=== PATIENT | female | born 1945 | race Caucasian/White ===

== ENCOUNTER 2022-12-28 20:06 | Emergency (ER) | payer MEDICARE, OTHER, SELFPAY ==
[2022-12-28 20:13] VITALS: PULSE 79; RESP 20; TEMP 36.8; O2SAT 97; BMI 33.6
[2022-12-28 20:20] VITALS: BP 170/100
--- NOTE | 2022-12-28 20:24 | XR_ITS ---
[address] [address] Patient Name: BHAVESH MONTEIRO MRN: [id number] date: 1945 Sex: F Assigned Patient Location: ER Current Patient Location: Accession/Order Number: [id number] Exam Date: 12/28/2022 20:35 Report Date: 12/28/2022 21:14 At the request of: JUAN CARRERA Procedure: XR ankle RT min 3V EXAM: XR knee RT 4V, XR ankle RT min 3V, XR foot RT min 3V HISTORY: Pain after slipping COMPARISON: None. TECHNIQUE: 4 views of the knee, 3 views of the ankle and 3 views of the foot FINDINGS: There is no visualized acute fracture, dislocation, subluxation or osseous lesion. Severe subcutaneous soft tissue edema overlies the medial aspect of the ankle and hindfoot. Age-changes of the knee with poorly evaluated chondral irregularity of the medial femoral condyle. The talocrural articulation is unremarkable. The midfoot and forefoot joint spaces are additionally unremarkable. Age-related prominence of the first metatarsal head medial eminence. Atherosclerosis of the vascular structures. IMPRESSION: Subcutaneous soft tissue edema with no visualized osseous abnormality or joint effusion. 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 Outpatient orthopedic evaluation and contrast MRI is recommended Electronically authenticated by: CARLO MOORE Date: 12/28/2022 21:14
--- NOTE | 2022-12-28 20:24 | XR_ITS ---
[address] [address] Patient Name: BHAVESH MONTEIRO MRN: [id number] date: 1945 Sex: F Assigned Patient Location: ER Current Patient Location: Accession/Order Number: [id number] Exam Date: 12/28/2022 20:35 Report Date: 12/28/2022 21:14 At the request of: JUAN CARRERA Procedure: XR foot RT min 3V EXAM: XR knee RT 4V, XR ankle RT min 3V, XR foot RT min 3V HISTORY: Pain after slipping COMPARISON: None. TECHNIQUE: 4 views of the knee, 3 views of the ankle and 3 views of the foot FINDINGS: There is no visualized acute fracture, dislocation, subluxation or osseous lesion. Severe subcutaneous soft tissue edema overlies the medial aspect of the ankle and hindfoot. Age-changes of the knee with poorly evaluated chondral irregularity of the medial femoral condyle. The talocrural articulation is unremarkable. The midfoot and forefoot joint spaces are additionally unremarkable. Age-related prominence of the first metatarsal head medial eminence. Atherosclerosis of the vascular structures. IMPRESSION: Subcutaneous soft tissue edema with no visualized osseous abnormality or joint effusion. 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 Outpatient orthopedic evaluation and contrast MRI is recommended Electronically authenticated by: CARLO MOORE Date: 12/28/2022 21:14
--- NOTE | 2022-12-28 20:24 | XR_ITS ---
[address] [address] Patient Name: BHAVESH MONTEIRO MRN: [id number] date: 1945 Sex: F Assigned Patient Location: ER Current Patient Location: Accession/Order Number: [id number] Exam Date: 12/28/2022 20:35 Report Date: 12/28/2022 21:14 At the request of: JUAN CARRERA Procedure: XR knee RT 4V EXAM: XR knee RT 4V, XR ankle RT min 3V, XR foot RT min 3V HISTORY: Pain after slipping COMPARISON: None. TECHNIQUE: 4 views of the knee, 3 views of the ankle and 3 views of the foot FINDINGS: There is no visualized acute fracture, dislocation, subluxation or osseous lesion. Severe subcutaneous soft tissue edema overlies the medial aspect of the ankle and hindfoot. Age-changes of the knee with poorly evaluated chondral irregularity of the medial femoral condyle. The talocrural articulation is unremarkable. The midfoot and forefoot joint spaces are additionally unremarkable. Age-related prominence of the first metatarsal head medial eminence. Atherosclerosis of the vascular structures. IMPRESSION: Subcutaneous soft tissue edema with no visualized osseous abnormality or joint effusion. 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 Outpatient orthopedic evaluation and contrast MRI is recommended Electronically authenticated by: CARLO MOORE Date: 12/28/2022 21:14
--- NOTE | 2022-12-28 20:29 | ED.LOWEXI1 ---
Documented by User: Jessi Calero 12/28/22 21:55 HPI - Extremity Injury (Lower) General Chief Complaint: Extremity Injury, Lower Stated Complaint: RIGHT LOWER INJURY Time Seen by Provider: 12/28/22 20:18 Source: patient and family Mode of arrival: walk-in Limitations: no limitations History of Present Illness HPI Narrative: 77 year old female presents to the ED for pain to her right knee, right ankle, and right foot s/p injury today. She slipped on a wet floor and fell. Her right knee was twisted below her. She noticed bruising to the 3rd, 4th, and 5th toes of the right foot which brought her to the ED. She has had a right knee replacement. Denies N/T, fever, chills, weakness. She is ambulatory with a cane; gait favors right leg. Denies injury to other areas. Denies pain to her head, neck, back, hips. Rates her pain 4/[address]: Reports home Related Data Home Medications Medication Instructions Recorded Confirmed No Known Home Medications 12/28/22 12/28/22 Allergies Allergy/AdvReac Type Severity Reaction Status Date / Time No Known Drug Allergies Allergy Verified 12/28/22 20:12 Review of Systems ROS Constitutional Denies: fever, chills or fatigue Cardiovascular Denies: chest pain Respiratory Denies: shortness of breath Gastrointestinal Denies: abdominal pain Musculoskeletal Reports: extremity pain; Denies: back pain or neck pain Integumentary/Breast Reports: changes in skin color; Denies: rash Neurological Denies: headache or dizziness [facility] PFS Social History Smoking status: Never smoker Exam Constitutional Vital Signs - 24 hr 12/28/22 20:13 12/28/22 20:20 Temperature 98.3 F Pulse Rate [Monitor] 79 Respiratory Rate 20 Blood Pressure [Left Arm] 170/100 H Pulse Oximetry 97 Oxygen Delivery Method Room Air Common normals: no apparent distress and oriented x3 Exam limitations: altered mental status General appearance: cooperative; not ill appearing Eye Common normals: conjunctivae normal and no scleral icterus Neck & C-Spine Common normals: supple Chest Chest: symmetrical chest wall rise Respiratory Effort & inspection: symmetric chest movement; no stridor Cardio Common normals: regular rate Peripheral pulses: posterior tibial pulses present and dorsalis pedis pulses present Extremity Right lower extremity: knee joint (Generlized tenderness. No deformity, bruising, wound, swelling.), lower leg (No tenderness, swelling, deformity, wound. Varicose veins noted.), ankle joint Right ankle: inspection (No deformity. ) and palpation (tenderness to medial and lateral areas. Denies tenderness over Achilles. ) and foot and digits Right foot and digits: inspection (Bruising 3rd, 4th, 5th toes of right foot. ), palpation (Tenderness to distal foot and digits. No swelling or deformity. ) and neurovascular exam (Distal sensation intact.) Neuro Common normals: oriented x3 Sensorium/orientation: awake and alert Speech: speech normal Course Vital Signs Vital signs: Vital Signs Temperature 98.3 F 12/28/22 20:13 Pulse Rate 79 12/28/22 20:13 Respiratory Rate 20 12/28/22 20:13 Pulse Oximetry 97 12/28/22 20:13 Oxygen Delivery Method Room Air 12/28/22 20:13 Temperature 98.3 F 12/28/22 20:13 Pulse Rate 79 12/28/22 20:13 Respiratory Rate 20 12/28/22 20:13 Blood Pressure 170/100 H 12/28/22 20:20 Pulse Oximetry 97 12/28/22 20:13 Oxygen Delivery Method Room Air 12/28/22 20:13 MDM - Extremity Injury (Lower) MDM Narrative Medical decision making narrative: X-rays of the right knee, right ankle, and right foot were negative for acute findings. Findings were discussed with the patient and her significant other. She has medication at home for her discomfort. She declined estrella wraps today. Follow up with pcp for a recheck, further evaluation and treatment. Differential Diagnosis Differential diagnosis: Likely ankle sprain and strain, fracture of toe, ankle fracture and other (knee fracture, knee sprain/strain.) Medical Records Attestation: I reviewed the patient's medical records. Imaging Data X-rays of the right knee, ankle, foot.: Radiologist's impression: EXAM: XR knee RT 4V, XR ankle RT min 3V, XR foot RT min 3V HISTORY: Pain after slipping COMPARISON: None. TECHNIQUE: 4 views of the knee, 3 views of the ankle and 3 views of the foot FINDINGS: There is no visualized acute fracture, dislocation, subluxation or osseous lesion. Severe subcutaneous soft tissue edema overlies the medial aspect of the ankle and hindfoot. Age-changes of the knee with poorly evaluated chondral irregularity of the medial femoral condyle. The talocrural articulation is unremarkable. The midfoot and forefoot joint spaces are additionally unremarkable. Age-related prominence of the first metatarsal head medial eminence. Atherosclerosis of the vascular structures. IMPRESSION: Subcutaneous soft tissue edema with no visualized osseous abnormality or joint effusion. 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 Outpatient orthopedic evaluation and contrast MRI is recommended Electronically authenticated by: CARLO MOORE Date: 12/28/2022 21:14 Discharge Plan Discharge Chief Complaint: Extremity Injury, Lower Clinical Impression: Ankle sprain, Fall, Contusion of toe of right foot, Right knee injury Patient Disposition: Home, Self-Care Time of Disposition Decision: 21:22 Condition: Good Mode of Transportation: Private Vehicle Prescriptions / Home Meds: No Action No Known Home Medications Instructions: Ankle Sprain (ED), Knee Sprain (ED), Foot Contusion (ED) Stand Alone Forms: Portal Instructions Referrals: Hafsa Browning MD [Primary Care Provider] - 1 week Discharge Date/Time: 12/28/22 21:37 Documented by User: Rizwana Chen MD 12/29/22 01:16 HPI - Extremity Injury (Lower) General Chief Complaint: Extremity Injury, Lower Stated Complaint: RIGHT LOWER INJURY Time Seen by Provider: 12/28/22 20:18 Related Data Home Medications Medication Instructions Recorded Confirmed No Known Home Medications 12/28/22 12/28/22 Allergies Allergy/AdvReac Type Severity Reaction Status Date / Time No Known Drug Allergies Allergy Verified 12/28/22 20:12 PFSH PFSH Social History Smoking status: Never smoker Exam Constitutional Vital Signs - 24 hr 12/28/22 20:13 12/28/22 20:20 Temperature 98.3 F Pulse Rate [Monitor] 79 Respiratory Rate 20 Blood Pressure [Left Arm] 170/100 H Pulse Oximetry 97 Oxygen Delivery Method Room Air Course Vital Signs Vital signs: Vital Signs Temperature 98.3 F 12/28/22 20:13 Pulse Rate 79 12/28/22 20:13 Respiratory Rate 20 12/28/22 20:13 Pulse Oximetry 97 12/28/22 20:13 Oxygen Delivery Method Room Air 12/28/22 20:13 Temperature 98.3 F 12/28/22 20:13 Pulse Rate 79 12/28/22 20:13 Respiratory Rate 20 12/28/22 20:13 Blood Pressure 170/100 H 12/28/22 20:20 Pulse Oximetry 97 12/28/22 20:13 Oxygen Delivery Method Room Air 12/28/22 20:13 MDM - Extremity Injury (Lower) MDM Narrative Medical decision making narrative: X-rays of the right knee, right ankle, and right foot were negative for acute findings. Findings were discussed with the patient and her significant other. She has medication at home for her discomfort. She declined estrella wraps today. Follow up with pcp for a recheck, further evaluation and treatment. Attending physician attestation I have reviewed the mid-level documentation, agree with the documentation, medical decision making and treatment plan as outlined by the mid-level provider. Discharge Plan Discharge Chief Complaint: Extremity Injury, Lower Clinical Impression: Ankle sprain, Fall, Contusion of toe of right foot, Right knee injury Patient Disposition: Home, Self-Care Time of Disposition Decision: 21:22 Condition: Good Mode of Transportation: Private Vehicle Prescriptions / Home Meds: No Action No Known Home Medications Instructions: Ankle Sprain (ED), Knee Sprain (ED), Foot Contusion (ED) Stand Alone Forms: Portal Instructions Referrals: Hafsa Browning MD [Primary Care Provider] - 1 week Discharge Date/Time: 12/28/22 21:37
== END 2022-12-28 21:37 | disposition home or self-care (01) ==
PROVIDERS: Emergency Provider Emergency Medicine; PCP Family Medicine
DX: S93.401A Sprain of unspecified ligament of right ankle, initial encounter (principal); S90.121A Contusion of right lesser toe(s) without damage to nail, initial encounter; S89.91XA Unspecified injury of right lower leg, initial encounter; W01.0XXA Fall on same level from slipping, tripping and stumbling without subsequent striking against object, initial encounter
CPT/HCPCS: 73564; 73610; 73630; 99283

== ENCOUNTER 2023-05-09 08:00 | Outpatient (OUT) | payer MEDICARE, OTHER, SELFPAY ==
[2023-05-09] MEDS: COVID VAC 23-24(12UP)MODERNA/PF 50 MCG/0.5 ML VIAL IM (15:00)
== END 2023-05-09 08:01 | disposition home or self-care (01) ==
LOC: VACCLI 06-28 09:00
PROVIDERS: PCP Family Medicine; Visit Provider Family Medicine
DX: Z23 Encounter for immunization (principal)
CPT/HCPCS: 90480; 91322

== ENCOUNTER 2023-07-31 12:35 | Outpatient (OUT) | payer MEDICARE, OTHER, SELFPAY ==
--- OUTSIDE RECORDS SUMMARY | 2023-07-31 12:41 | XMS_ITS | CCD ---
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 Name Role Phone HAFSA KNOWLES Primary Care Physician SAMUEL, DR ANTWON Sharma Admitting Unavailparadise BAKER, DR ANTWON Sharma Attending Unavailparadise KNOWLES, DR HAFSA Sharma Primary Care Unavailable SAMUEL, DR ANTWON Sharma Consulting UnavailEMILEE Trimble Consulting Unavailable BETZY HAMILTON Consulting Unavailable SHAHID ORTEGA, DR MALLY Mendiola Admitting Unavailparadise KEY JR, DR MALLY Mendiola Attending Unavailabl e BENSON, DR HAFSA Sharma Primary Care Unavailable SHAHRIAR, DR DARIO Duarte Consulting Unavailable SHAHID ORTEGA, DR MALLY Mendiola Consulting Unavailparadise KNOWLES, DR HAFSA Sharma Admitting Unavailable KNOWLES, DR HAFSA Sharma Attending Unavailable BENSON, DR HAFSA Sharma Primary Care Unavailable SHAHRIAR, DR DARIO Duarte Consulting Unavailable SHAHID ORTEGA, DR MALLY Mendiola Consulting Unavailparadise BAKER, DR ANTWON Sharma Admitting Unavailparadise BAKER, DR ANTWON Sharma Attending Unavailparadise KNOWLES, DR HAFSA Sharma Primary Care Unavailable SAMUEL, DR ANTWON Sharma Consulting Katie Salmon Attending Katie Rihcardson Attending Katie Richardson Attending Hafsa Perkins Unavailable Allergies Allergy Classification Reported Allergen(s) Allergy Type Date of Onset Reaction(s) Facility (5 sources) Codeine; Translations: [codeine] Drug Allergy 12-26-19 16 nausea, Unknown [facility] (1 source) Codeine Drug Allergy [facility] (1 source) Acetaminophen / HYDROcodone Drug Allergy Unknown [facility] Other (1 source) Codeine Drug Allergy Unknown [facility] Other (1 source) patient allergy list reviewed by nurse or physicia Propensity to adverse reactions 04-29-20 Comment:Done [facility] Other (1 source) Allergies Reconciled Propensity to adverse reactions Unknown [facility] Other Medications Current Medications Medication Drug Class(es) Dates Sig (Normalized) Sig (Original) biotin 5 mg oral capsule (4 sources) Start: 10-25-2020 biotin 5000 mcg oral capsule Refills(s) 0 Start Date: 10/25/20 Status: Ordered take 1 capsule by mouth once reddy ly Biotin 5000 5 MG 1 capsule Orally Once a day Active cephalexin 500 mg oral capsule (1 source) Cephalosporin Antibacterial Start: 12-05-2021 take 1 capsule by mouth every twelve hours Keflex 500 mg Cap 500 mg = 1 cap(s), Oral, q12hr, # 6 cap(s), Refills(s) 0, Pharmacy: [id number], 168, cm, 12/05/21 10:16:00 EDT, Height/Length Dosing, 97.5, kg, 12/05/21 10:16:00 EDT, Weight Dosing Start Date: 12/05/21 Status: Ordered ciprofloxacin 500 mg oral tablet (1 source) Quinolone Antimicrobial Start: 07-23-2023 take 1 tablet by mouth every twelve hours Ciprofloxacin HCl 500 MG 1 tablet Orally every 12 hrs for 7 days Jul, Active estradiol 0.1 mg/ml vaginal cream (2 sources) Estrogen Start: 08-22-2022 Estrace 0.1 mg/g Cream See Instructions, 42.5 gm, Refill(s) 6, Apply pea-sized amound around the opening of the urethra 3 times per week for 1 month then 2 times per week after for maintenance., [id number], 168, cm, 08/22/22 11:52:00 EST, Height/Length Dosin... Start Date: 08/22/22 Status: Ordered Mary (3 sources) Histamine-1 Receptor Antagonist Start: 10-25-2020 Mary Oral, Refills(s) 0 Start Date: 10/25/20 Status: Ordered omeprazole 40 mg delayed release oral capsule (1 source) Proton Pump Inhibitor Start: 09-05-2020 take 1 capsule by mouth once daily Omeprazole 40 MG Omeprazole 40MG, 1 (one) Capsule daily # 30, 09/05/2020, Ref. x2. Active Oral daily for 30 Aug, Active sulfamethoxazole 800 mg / trimethoprim 160 mg oral tablet (1 source) Dihydrofolate Reductase Inhibitor Antibacterial, Sulfonamide Antimicrobial Start: 06-25-2023 take 1 tablet by mouth every twelve hours Bactrim DS 800-160 MG 1 tablet Orally Twice a day for 10 day(s) Jun, Active Vitamin D-3 1000 UNIT (1 source) take 1 capsule by mouth once daily Vitamin D-3 1000 UNIT 1 capsule Orally Once a day Active Completed/Discontinued Medications Medication Drug Class(es) Dates Sig (Normalized) Sig (Original) Vitamin D3 5000 intl units oral capsule (3 sources) Start: 10-25-2020 take 1 capsule by mouth once daily at mealtime Vitamin D3 5000 intl units oral capsule 5,000 International_Unit = 1 cap(s), Oral, Daily, with food, # 100 cap(s), Refills(s) 0 Start Date: 10/25/20 Status: Ordered Problems Active Problems Problem Classification Problem Date Documented Da te Episodic/Chronic Abdominal pain (1 source) Left upper quadrant pain; Translations: [Left upper quadrant pain] Episodic Allergic reactions (1 source) Contact dermatitis due to plants; Translations: [Unspecified contact dermatitis due to plants, except food] Episodic Biliary tract disease (10 sources) Biliary calculus; Translations: [Gallstone] 07-09-2019 Episodic Deficiency and other anemia (3 sources) Anemia 10-25-2020 Episodic Genitourinary congenital anomalies (1 source) Multiple congenital cysts of kidney; 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, unspecified] Chronic Genitourinary symptoms and ill-defined conditions (8 sources) Urgent desire to urinate; Translations: [Urgency of urination] Onset: 08-22-2022 Episodic Menopausal disorders (5 sources) Atrophic vaginitis; Translations: [Postmenopausal atrophic vaginitis] Onset: 11-07-2017 Chronic Nutritional deficiencies (1 source) Vitamin D deficiency; Translations: [Vitamin D deficiency, unspecified] Chronic Osteoarthritis (3 sources) Arthritis 10-25-2020 Chronic Other bone disease and musculoskeletal deformities (4 sources) Osteopenia; Translations: [Other specified disorders of bone density and structure, unspecified site] 07-09-2019 Episodic Other circulatory disease (1 source) Elevated blood-pressure reading without diagnosis of hypertension; Translations: [Elevated blood-pressure reading, without diagnosis of hypertension] Episodic Other diseases of kidney and ureters (2 sources) Disorder of kidney and/or ureter; Translations: [Other specified disorders of kidney and ureter] Onset: 12-05-2021 Chronic Other diseases of kidney and ureters (1 source) Renal mass 12-05-2021 Chronic Other diseases of kidney and ureters (4 sources) Other specified disorders of kidney and ureter; Translations: [OTHER SPEC DISORDERS KIDNEY URETER] Onset: 06-13-2022 Chronic Other diseases of kidney and ureters (1 source) Cyst of kidney, acquired; Translations: [CYST OF KIDNEY ACQUIRED] Onset: 06-16-2022 Episodic Other diseases of kidney and ureters (2 sources) Acquired renal cyst without neoplastic change; Translations: [Cyst of kidney, acquired] Onset: 08-22-2022 Episodic Other diseases of kidney and ureters (2 sources) Cyst of kidney 08-22-2022 Episodic Other endocrine disorders (4 sources) Hyperparathyroidis m; Translations: [Hyperparathyroidi sm, unspecified] Onset: 07-24-2016 07-09-2019 Chronic Other endocrine disorders (1 source) Primary hyperparathyroidis m; Translations: [Primary hyperparathyroidis m] Chronic Other non-traumatic joint disorders (2 sources) Arthralgia of the lower leg; Translations: [Pain in joint, lower leg] Onset: 11-07-2017 Episodic Other nutritional; endocrine; and metabolic disorders (1 source) Obesity; Translations: [Obesity, unspecified] Chronic Other nutritional; endocrine; and metabolic disorders (1 source) Hypercalcemia; Translations: [Hypercalcemia] Chronic Other screening for suspected conditions (not mental disorders or infectious disease) (1 source) Elevated liver enzymes level; Translations: [Other specified abnormal findings of blood chemistry] Episodic Other upper respiratory disease (1 source) Allergic rhinitis; Translations: [Allergic rhinitis, unspecified] Onset: 04-13-2016 Chronic Other upper respiratory infections (1 source) Chronic sinusitis; Translations: [Chronic sinusitis, unspecified] Chronic Other upper respiratory infections (2 sources) Acute sinusitis; Translations: [Acute sinusitis, unspecified] Onset: 04-29-2015 Episodic Thyroid disorders (3 sources) Thyroid nodule 07-09-2019 Chronic Urinary tract infections (3 sources) Acute cystitis; Translations: [Acute cystitis without hematuria] Onset: 12-05-2021 Episodic Past or Other Problems Problem Classification Problem Date Documented Da te Episodic/Chronic Other bone disease and musculoskeletal deformities (1 source) Bone density finding; Translations: [Other specified disorders of bone density and structure, unspecified site] Onset: 07-25-2015 Episodic Unclassified (1 source) Abnormal result; Translations: [Other abnormal clinical finding] Onset: 12-11-2016 Results Test Name Value Interpretation Reference Range Facil ity Screenson 02-21-2023 Screens [id number] D:127 Normal [facility] Patient Educationon 02-21-20 23 Patient Education Obstetrics and Gynecology Urinary Tract Infection, Adult A urinary tract infection (UTI) is an infection of any part of the urinary tract. The urinary tract includes: ? The kidneys. ? The ureters. ? The bladder. ? The urethra. These organs make, store, and get rid of pee (urine) in the body. What are the causes? This infection is caused by germs (bacteria) in your genital area. These germs grow and cause swelling (inflammation) of your urinary tract. What increases the risk? The following factors may make you more likely to develop this condition: ? Using a small, thin tube (catheter) to drain pee. ? Not being able to control when you pee or poop (incontinence). ? Being female. If you are female, these things can increase the risk: ? Using these methods to prevent : ? A medicine that kills sperm (spermicide). ? A device that blocks sperm (diaphragm). ? Having low levels of a female hormone (estrogen). ? Being . You are more likely to develop this condition if: ? You have genes that add to your risk. ? You are sexually active. ? You take antibiotic medicines. ? You have trouble peeing because of: ? A prostate that is bigger than normal, if you are male. ? A blockage in the part of your body that drains pee from the bladder. ? A kidney stone. ? A nerve condition that affects your bladder. ? Not getting enough to drink. ? Not peeing often enough. ? You have other conditions, such as: ? Diabetes. ? A weak disease-fighting system (immune system). ? Sickle cell disease. ? Gout. ? Injury of the spine. What are the signs or symptoms? Symptoms of this condition include: ? Needing to pee right away. ? Peeing small amounts often. ? Pain or burning when peeing. ? Blood in the pee. ? Pee that smells bad or not like normal. ? Trouble peeing. ? Pee that is cloudy. ? Fluid coming from the vagina, if you are female. ? Pain in the belly or lower back. Other symptoms include: ? Vomiting. ? Not feeling hungry. ? Feeling mixed up (confused). This may be the first symptom in older adults. ? Being tired and grouchy (irritable). ? A fever. ? Watery poop (diarrhea). How is this treated? ? Taking antibiotic medicine. ? Taking other medicines. ? Drinking enough water. In some cases, you may need to see a specialist. Follow these instructions at home: Medicines ? Take hpum-lnd-hzmqklo and prescription medicines only as told by your doctor. ? If you were prescribed an antibiotic medicine, take it as told by your doctor. Do not stop taking it even if you start to feel better. General instructions ? Make sure you: ? Pee until your bladder is empty. ? Do not hold pee for a long time. ? Empty your bladder after sex. ? Wipe from front to back after peeing or pooping if you are a female. Use each tissue one time when you wipe. ? Drink enough fluid to keep your pee pale yellow. ? Keep all follow-up visits. Contact a doctor if: ? You do not get better after 1?2 days. ? Your symptoms go away and then come back. Get help right away if: ? You have very bad back pain. ? You have very bad pain in your lower belly. ? You have a fever. ? You have chills. ? You feeling like you will vomit or you vomit. Summary ? A urinary tract infection (UTI) is an infection of any part of the urinary tract. ? This condition is caused by germs in your genital area. ? There are many risk factors for a UTI. ? Treatment includes antibiotic medicines. ? Drink enough fluid to keep your pee pale yellow. This information is not intended to replace advice given to you by your health care provider. Make sure you discuss any questions you have with your health care provider. Document Revised: 02/10/2021 Document Reviewed: 02/10/2021 [employer] Patient Education ? 2022 [employer]D. [facility] Urology Office/Clinic Noteon 02-20-2023 Urology Office/Clinic Note Chief Complaint 6M follow up HPI Staff 6m. DX:Urgency of Urination, Renal Cyst, Asymptomatic Bacteriuria, and Vaginal Atrophy. *Estrace cream 2x/wk therapy started at time of last encounter. Denies any infections since last encounter. q3-4hrs during day. Occasional Kegel exercises. Admits to not doing them as often as she should. Denies pain/burning and blood in urine. Denies difficulty urinating. Denies leaking. Mild intermittent urgency, only after sitting in chair for extended period of time then getting up. Has not noticed any difference with Estrace Cream. History of Present Illness Tests reviewed: reviewed UA I have reviewed the previous health record information and history for this patient from . I have reviewed and verified the staff HPI to be accurate for this encounter. There have been no associated fever, chills, flank pain, or blood in the urine. Denies any urinary infections since last encounter. Review of Systems PHQ Score Initial Depression Screen Score: 0 ROS - Provider Constitutional: denies weight loss, denies hot flashes. Eyes: denies eye problems. Gastrointestinal: denies nausea, denies vomiting. Cardiovascular: denies chest pain or angina. Integumentary: no dryness Musculoskeletal: denies musculoskeletal symptoms. ENMT: denies otolaryngeal symptoms. Respiratory: no shortness of breath. Heme/Lymph: denies easy bleeding tendency, denies easy bruising tendency. Psychiatric: no confusion, no anxiety. Genitourinary: See HPI. Physical Exam Vitals & Measurements HR: 68(Peripheral) RR: 16 BP: 130/76 HT: 66 in HT: 168 cm WT: 95.5 kg WT: 210.1 lb BMI: 33.84 General Appearance: alert , no acute distress, well nourished, well developed female. Assessment/Plan Damaso is a 77 yr old female her for a 6 mos f/u. 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 1. Urgency of urination (R39.15: Urgency of urination) BBS 11 Pt states she voids x3-4hrs a day. PT states she does have mild intermittent urgency, only after sitting in chair for extended period of time then getting up. PT states she has not done Kegel's as much as she should. States she does have dropped bladder. Occasional slow stream for yrs. Urgency happens 1/week. PT states she does bladder maneuvers sometimes. Advised pt to do this every time she voids. -Can re-discuss pessary or other tx options in future or if sxs become bothersome. Declines at this time. Pt is currently using Estrace cream. Pt states that she does not see a difference in her symptoms since starting Estrace cream. PT states that she does not have vaginal dryness only with wiping bowels. Pt states she has been applying the best she could, due to her having a prolapsed bladder. Pt denies any burning/pain. Pt denies any infections since last OV. Follow up in 1 yr. All questions/concerns were discussed. Pt to call the office if she encounters any issues prior. Pt acknowledges understanding. -Declined further medicaitons at this time -bladder emptying maneuvers -Reeducated on estrace application technique -timed voids q2-3hrs, void before sensation -Kegels/ PFPT at home daily. educational pamphlet provided prior. Pt does not wish to have formal PFPT with therapist 2. 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 Has remained grossly stable over the past year. States has had this for years. CT AP w/ con done 06/13/22 shows 2.3 x 1.6 x 1.4 cm lesion, only slight increase in size of the left kidney superior pole lesion since 09/21/20, but no significant enhancement of the lesion which favors complex/hemorrhagic cyst. 06/13/22: Crea 0.98. eGFR 55. Bosniak 2 cyst, does not require continual monitoring. No further imaging at this time. 3. Asymptomatic bacteriuria (R82.71: Bacteriuria) Prior +UA 11/2021 treated with keflex x 3 days. No change in urinary sx. UA today shows Trace-intact blood, Positive Nitrate, and trace leuks, pt again denies bothersome sx. No hx of complicated UTIs, fevers or pyelonephritis. PT states that she has not tried OTC cranberry supplements. Advised pt to start taking these. Discussed asx bacteruria and indications for treatment of +UA. After shared decision making, no tx of +UA at this time. Pt to call if develops sx or change in urinary sx. -OTC cranberry supplements -Timed voids and emptying maneuvers 4. 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 Occasional slow stream for yrs. Urgency happens 1/week. Educated pt on emptying maneuvers. Pt is currently using Estrace cream. See #1 I spent 30 minutes today with the patient: reviewing tests in preparation to see and discuss them with the patient, documenting clinical information in the electronic health records, and care coordination. Time was spent performing a medical exam (more content not included)... Normal [facility] Comment on above: Result Comment: Elec tronically Signed By: Katie Almonte MD\.br\Date and Time Signed: 02/20/23 12:03 EDT\.br\Electronically Co-Signed By: Sepideh Perez\.br\Date and Time Co-Signed: 02/20/23 11:49 EDT Ambulatory Visit Summaryon 0 08-22-2022 Ambulatory Visit Summary CAYETANO CRISTIANGUADALUPE Duarte :1945 Visit Date:08/22/2022 Ambulatory Visit Instructions Your Diagnosis Urgency of urination Renal cyst Acute cystitis Tests Performed Urnls Dip Stick Auto w/o Microscopy POC [id number] Your Care Team Attending Physician - Katie Almonte MD Primary Care Physician - HAFSA KNOWLES MD This Is Your Medications List estradiol topical (Estrace 0.1 mg/g Cream) Contact prescribing physician if questions or concerns biotin (biotin 5000 mcg oral capsule) cholecalciferol (Vitamin D3 5000 intl units oral capsule) fexofenadine (Mary) Procedures Performed Cholecystectomy (07/29/2019), Parathyroidectomy (07/15/2016), Colonoscopy (12/26/2011), Biopsy of breast (07/15/2009), JUAN F BSO - Total abdominal hysterectomy and bilateral salpingo-oophorectomy (07/15/1996), 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 Discharge Vitals Heart Rate (Peripheral) 68 Respiratory Rate 16 Blood Pressure 132/78 Height 168 cm Height 66 in Weight 97.5 kg Weight 214.5 lb BMI 34.55 What to do next Scheduled Follow-Up Appointments Saturday 10:45 AM EDT With: Gage JACOB, Katie Arteaga Where: [facility] Patient Educationon 08-22-19 Patient Education Obstetrics and Gynecology Kegel Exercises Kegel exercises can help strengthen your pelvic floor muscles. The pelvic floor is a group of muscles that support your rectum, small intestine, and bladder. In females, pelvic floor muscles also help support the womb (uterus). These muscles help you control the flow of urine and stool. Kegel exercises are painless and simple, and they do not require any equipment. Your provider may suggest Kegel exercises to: ? Improve bladder and bowel control. ? Improve sexual response. ? Improve weak pelvic floor muscles after surgery to remove the uterus (hysterectomy) or (females). ? Improve weak pelvic floor muscles after prostate gland removal or surgery (males). Kegel exercises involve squeezing your pelvic floor muscles, which are the same muscles you squeeze when you try to stop the flow of urine or keep from passing gas. The exercises can be done while sitting, standing, or lying down, but it is best to vary your position. Exercises How to do Kegel exercises: 1. Squeeze your pelvic floor muscles tight. You should feel a tight lift in your rectal area. If you are a female, you should also feel a tightness in your vaginal area. Keep your stomach, buttocks, and legs relaxed. 2. Hold the muscles tight for up to 10 seconds. 3. Breathe normally. 4. Relax your muscles. 5. Repeat as told by your health care provider. Repeat this exercise daily as told by your health care provider. Continue to do this exercise for at least 4?6 weeks, or for as long as told by your health care provider. You may be referred to a physical therapist who can help you learn more about how to do Kegel exercises. Depending on your condition, your health care provider may recommend: ? Varying how long you squeeze your muscles. ? Doing several sets of exercises every day. ? Doing exercises for several weeks. ? Making Kegel exercises a part of your regular exercise routine. This information is not intended to replace advice given to you by your health care provider. Make sure you discuss any questions you have with your health care provider. Document Released: 06/17/2013 Document Revised: 02/18/2019 Document Reviewed: 02/18/2019 [employer] Patient Education ? 2019 iZ3D. [facility] Urology Office/Clinic Noteon 08-22-2022 Urology Office/Clinic Note Chief Complaint 6m CT HPI Staff DLS pt here today to review CT done 06/13/22 due to Renal Mass and acute cystitis. *No Urology Medications. Keflex therapy given at last encounter due to UA results. Pt denies infection since then. Denies symptoms of infection at this time. States she does have dropped bladder. Urgency occasionally when she stands. Denies loss of bladder control. Occasional slow stream for yrs. Very mild intermittent discomfort in Lt flank area. Usually when she is sitting straight up. History of Present Illness Tests reviewed: reviewed UA, CT scan. I have reviewed the previous health record information and history for this patient from Dr. Key. I have reviewed and verified the staff HPI to be accurate for this encounter. There have been no associated fever, chills, flank pain, or blood in the urine. Denies any urinary infections since last encounter. Review of Systems PHQ Score Initial Depression Screen Score: 0 ROS - Provider Constitutional: denies weight loss, denies hot flashes. Eyes: denies eye problems. Gastrointestinal: denies nausea, denies vomiting. Cardiovascular: denies chest pain or angina. Integumentary: no dryness Musculoskeletal: denies musculoskeletal symptoms. ENMT: denies otolaryngeal symptoms. Respiratory: no shortness of breath. Heme/Lymph: denies easy bleeding tendency, denies easy bruising tendency. Psychiatric: no confusion, no anxiety. Genitourinary: See HPI. Physical Exam Vitals & Measurements HR: 68(Peripheral) RR: 16 BP: 132/78 HT: 66 in HT: 168 cm WT: 97.5 kg WT: 214.5 lb BMI: 34.55 General Appearance: alert , no acute distress, well nourished, well developed female. Genitourinary: bladder nonpalpable, no flank pain. 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 1. Urgency of urination (R39.15: Urgency of urination) Urgency occasionally when she stands. Denies loss of bladder control. States she does have dropped bladder. Educated pt on emptying maneuvers. Occasional slow stream for yrs. Urgency happens 1/week. Pt to start Estrace to help with occasional urgency and infection prevention. SEs discussed. Rx sent to [facility]. Can rediscuss pessary or other tx options in future or if sxs become bothersome. Follow up in 6 mos or sooner if needed. Pt understands and agrees with plan. -start Estrace cream, 3x/week for one month then 2x/week after for maintenance -bladder emptying maneuvers -timed voids q2-3hrs, void before sensation -Kegels when having urge, educational pamphlet provided 2. 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 Has remained grossly stable over the past year. States has had this for years. CT AP w/ con done 06/13/22 shows 2.3 x 1.6 x 1.4 cm lesion, only slight increase in size of the left kidney superior pole lesion since 09/21/20, but no significant enhancement of the lesion which favors complex/hemorrhagic cyst. 06/13/22: Crea 0.98. eGFR 55. Pt has been having CT scans q6mos to monitor. Bosniak 2 cyst, does not require continual monitoring. No further imaging at this time. 3. Asymptomatic bacteriuria (R82.71: Bacteriuria) Prior +UA 11/2021 treated with keflex x 3 days. No change in urinary sx. +UA today, pt again denies bothersome sx. No hx of complicated UTIs, fevers or pyelonephritis. Discussed asx bacteruria and indications for treatment of +UA. After shared decision making, no tx of +UA at this time. Pt to call if develops sx or change in urinary sx. 4. 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 Occasional slow stream for yrs. Urgency happens 1/week. Educated pt on emptying maneuvers. -Pt to start Estrace to help with occasional urgency and infection prevention. SEs discussed. Rx sent to [facility]. Can rediscuss pessary or other tx options in future or if sxs become bothersome. Orders: estradiol topical, See Instructions, 42.5 gm, Refill(s) 6, Apply pea-sized amound around the opening of the urethra 3 times per week for 1 month then 2 times per week after for maintenance., [employer], 168, cm, 08/22/22 11:52:00 EST, Height/Length Dosin... Urnls Dip Stick Auto w/o Microscopy POC 10233 Follow-up With When Contact Information Katie Almonte MD, URL, URO Additional Instructions: f/u 6 mos, no labs Patient Education Kegel Exercises I, Es Santana, personally scribed for Dr. Almonte on 08/22/2022 12:52:13. . Documentation recorded by the scribe, Es Santana, accurately reflects the services(s) I performed and decisions made by me. Authenticated by Dr. Almonte on 08/22/2022 16:58:42. Problem List/Past Medical History Ongoing Acute cystitis Calculus of gallbladder Hyperparathyroidism Osteopenia Renal cyst Symptomatic cholelithiasi (more content not included)... Normal [facility] Comment on above: Result Comment: Elec tronically Signed By: Katie Almonte MD\.br\Date and Time Signed: 08/22/22 16:59 EST\.br\Electronically Co-Signed By: Es Santana\.br\Date and Time Co-Signed: 08/22/22 12:52 EST Covid-19 PCR (CVDTB)on 07-15 SARS-CoV-2 (COVID-19) RNA AZUL+probe Ql (Unsp spec) Not detected Normal NOT DETECTED [facility] Comment on above: Result Comment: This test is not yet approved or cleared by the [place] FDA. When there are no FDA-approved or cleared tests available, and other criteria are met, FDA can make tests available under an emergency access mechanism called an Emergency Use Authorization (EUA). The EUA for this test is supported by the Financial Assistance Advisor of Health and Human Service's (HHS's) declaration that circumstances exist to justify the emergency use of in vitro diagnostics for the detection and/or diagnosis of the virus that causes COVID-19. This EUA will remain in effect (meaning this test can be used) for the duration of the COVID-19 declaration justifying emergency of IVDs, unless it is terminated or revoked by FDA (after which the test may no longer be used). When diagnostic testing is negative, the possibility of a false negative should be considered in the context of a patient's recent exposures and the presence of clinical signs and symptoms consistent with SARS-CoV-2. Performed By: #### C VDTBH #### [facility] [address] [place] [address] Dr. Manjula Arzate Lab Reportson 06-17-2022 Lab Reports [id number] D:127 Normal [facility] RAD - CT Reporton 06-17-2022 RAD - CT Report [id number] D:127 Normal [facility] CREATININEon 06-13-2022 Creatinine [Mass/Vol] 0.98 mg/dL Normal 0.55-1.02 [facility] Comment on above: Performed By: #### C JESUS #### [facility] [address] [address] [address] Manjula Arzate EGFR-AF SAMOAN >60 Normal >=60 [facility] Comment on above: Performed By: #### C JESUS #### [facility] [address] [place] [address] Dr. Manjula Arzate EGFR-NON AF SAMOAN 55 mL/min/1.73m2 Critically low >=60 [facility] Comment on above: Performed By: #### C JESUS #### [facility] [address] [address] ABD/PELV W CONon 06-13-[address] ABD/PELV W CON EXAMINATION: CT ABD/PELV W CON HISTORY: Renal mass COMPARISON: CT abdomen pelvis 11/27/2021, 04/25/2021, 09/21/2020 TECHNIQUE: Axial, Coronal, and Sagittal images were obtained without and/or with IV contrast as indicated by examination type. Dose reduction techniques were achieved by using automated exposure control and/or adjustment of mA and/or kV according to patient size and/or use of iterative reconstruction technique. FINDINGS: LUNG BASES: No visible pulmonary or pleural disease. LIVER: No enlargement, atrophy, suspicious density, or significant focal lesion. BILIARY: Cholecystectomy. PANCREAS: No lesion, fluid collection, or abnormal duct dilatation. SPLEEN: Splenectomy. ADRENALS: No mass or enlargement. KIDNEYS: Oval, fairly well-circumscribed 2.3 x 1.6 x 1.4 cm lesion within the medial superior pole of left kidney; 54 HU noncontrast (prior study), 52 HU portal venous phase, 43 HU delayed phase Unremarkable right kidney and bilateral ureters. BOWEL/MESENTERY: Mild cigarettes wall thickening of mid and distal sigmoid colon and rectum without obstruction or appreciable surrounding inflammatory changes. AORTA/VASCULAR: No aneurysm or dissection. RETROPERITONEUM: No mass or adenopathy. LYMPH NODES: No adenopathy. URINARY BLADDER: No visible focal wall thickening, lesion, or calculus. PELVIC ORGANS: No visible mass. Pelvic organs appropriate for patient age. ABDOMINAL WALL: No mass or hernia. BONES: No bony lesion or fracture. OTHER: Negative. IMPRESSION: 1. Only slight increase in size of the right kidney superior pole lesion since 09/21/2020, but no significant enhancement of the lesion which favors complex/hemorrhagic cyst. Consider follow-up imaging in one year. 2. Mild significant wall thickening of distal colon which is also empty; this may be due to lack of distention or mild colitis. Electronically authenticated by: DARIO BESS Date: 2022-06-13 17:40 Normal [facility] CT ABD/PELVIS WO CONon 11-27 CT ABD/PELVIS WO CON EXAMINATION: CT ABD/PELVIS WO CON HISTORY: Renal mass follow-up COMPARISON: CT abdomen pelvis 04/25/2021, 09/21/2020 TECHNIQUE: Axial, Coronal, and Sagittal images were created without IV contrast. Dose reduction techniques were achieved by using automated exposure control and/or adjustment of mA and/or kV according to patient size and/or use of iterative reconstruction technique. FINDINGS: LUNG BASES: No visible pulmonary or pleural disease. LIVER: No enlargement, atrophy, abnormal density, or significant focal lesion. BILIARY: Cholecystectomy. PANCREAS: No lesion, fluid collection, ductal dilatation. SPLEEN: Splenectomy. ADRENALS: No mass or enlargement. KIDNEYS: 18 mm rounded slightly hyperdense lesion within medial mid body of left kidney. BOWEL/MESENTERY: No visible mass, obstruction, or bowel wall thickening. AORTA/VASCULAR: No aneurysm or dissection. RETROPERITONEUM: No mass or adenopathy. LYMPH NODES: No adenopathy. URINARY BLADDER: No visible focal wall thickening, lesion, or calculus. PELVIC ORGANS: No visible mass. Pelvic organs appropriate for patient age. ABDOMINAL WALL: No mass or significant hernia. BONES: No bony lesion or fracture. OTHER: Negative. IMPRESSION: 1. Grossly stable 18 mm left renal mass versus complex cyst. Evaluation of today's study is limited by lack of IV contrast. This has remained grossly stable over past year. Consider follow-up CT abdomen with IV contrast in 6 months and 12 months to document stability over a two-year period. Electronically authenticated by: DARIO BESS Date: 2021-11-27 10:41 Normal [facility] Vital Signs Date Time Vital Sign Value Performing Clinician Murali juarez 02-20-2023 10:53-0400 Blood Pressure Location Katie Almonte [facility] 02-20-2023 10:53-0400 Diastolic blood pressure 76 mm[Hg] Katie Almonte [facility] 02-20-2023 10:53-0400 Heart rate 68 /min Katie Almonte [facility] 02-20-2023 10:53-0400 Respiratory rate 16 /min Katie Lue [facility] 02-20-2023 10:53-0400 Systolic blood pressure 130 mm[Hg] Katie Lue [facility] 08-22-2022 11:50-0500 Blood Pressure Location Katie Lue [facility] 08-22-2022 11:50-0500 Diastolic blood pressure 78 mm[Hg] Katie Lue [facility] 08-22-2022 11:50-0500 Heart rate 68 /min Katie Lue [facility] 08-22-2022 11:50-0500 Respiratory rate 16 /min Katie Lue [facility] 08-22-2022 11:50-0500 Systolic blood pressure 132 mm[Hg] Katie Lue [facility] 12-05-2021 10:33-0400 Diastolic blood pressure 81 mm[Hg] Mally Key Jr. [facility] 12-05-2021 10:33-0400 Mean blood pressure 101 mm[Hg] Mally Key Jr. [facility] 12-05-2021 10:33-0400 Systolic blood pressure 142 mm[Hg] Mally Key Jr. [facility] 12-05-2021 10:12-0400 Blood Pressure Location Mally Key Jr. [facility] 12-05-2021 10:12-0400 Diastolic blood pressure 97 mm[Hg] Mally Key Jr. [facility] 12-05-2021 10:12-0400 Heart rate 87 /min Mally Key Jr. [facility] 12-05-2021 10:12-0400 Respiratory rate 16 /min Mally Key Jr. [facility] 12-05-2021 10:12-0400 Systolic blood pressure 163 mm[Hg] Mally Key Jr. [facility] Encounters Encounter Date Encounter Type Care Provider Facility Start: 02-26-2024 ambulatory Katie Almonte Facility:[facility] Start: 07-30-2023 End: 07-30-2023 ambulatory Hafsa Knowles Other [facility] Other Start: 07-30-2023 Telephone encounter Hafsa Knowles [facility] Start: 02-20-2023 End: 02-21-2023 ambulatory Katie Almonte Facility:[facility] Start: 02-20-2023 End: 02-20-2023 Patient encounter procedure Katie Almonte [facility] Start: 08-22-2022 End: 08-23-2022 ambulatory Katie Josée Facility:[facility] Start: 08-22-2022 End: 08-22-2022 Patient encounter procedure Katie Almonte [facility] Start: 08-01-2022 End: 08-01-[address] ANTWON BAKER Facility:[facility] Start: 07-30-2022 End: 07-31-[address] ANTWON BAKER Facility:[facility] Start: 07-12-2022 Adult health examination Hafsa Knowles Other [facility] Other Start: 06-13-2022 End: 06-14-[address] HAFSA KNOWLES Facility:[facility] Start: 12-05-2021 End: 12-05-2021 Patient encounter procedure Mally Key Jr. [facility] Start: 11-27-2021 End: 11-28-[address] MALLY KEY JR Facility:[facility] Procedures Date Procedure Procedure Detail Performing Clinician Start: 07-29-2019 Cholecystectomy Mally Key Jr. Start: 07-15-2016 Parathyroidectomy Gregg Key Jr. Start: 12-26-2015 General examination of patient Hafsa Knowles Other Start: 04-29-2015 Laboratory test resu lt abnormal Hafsa Knowles Other Start: 04-29-2015 Screening mammography Mervin Knowles Other Start: 12-26-2011 Colonoscopy Mally gilbert Jr. Start: 07-15-2009 Biopsy of breast Mally Key Jr. Start: 07-15-1996 Total abdominal hyst erectomy with bilateral salpingo-oophorectomy Mally Key Jr. Start: 07-15-1989 Splenectomy Mally gilbert Jr. Bilateral cataracts (disorder) Mally Key Jr. Ligation of fallopian tube D prashanth Key . Screening for malign ant neoplasm of breast Hafsa Knowles Other Immunizations Immunization Date Immunization Notes Care Provider Zaid randolph 04-10-2022 SARS-CoV-2 (COVID-19 ) [id number] Katie Lue [facility] 04-11-2021 SARS-CoV-2 (COVID-19 ) mRNA BNT-162b2 vax Katie Lue [facility] 02-15-2021 zoster vaccine recombinant Katie Lue [facility] 11-30-2020 zoster vaccine recombinant Katie Lue [facility] 08-30-2020 SARS-CoV-2 (COVID-19 ) mRNA BNT-162b2 vax Katie Lue [facility] Comment on above: Result Comment: 2022: [id number] 08-09-2020 SARS-CoV-2 (COVID-19 ) mRNA BNT-162b2 vax Katie Lue [facility] Comment on above: Result Comment: 2022: [id number] 05-16-2020 influenza virus vaccine, split virus (incl. purified surface antigen) Hafsa Knowles Other [facility] Other 04-26-2020 influenza virus vaccine, unspecified formulation Katie Lue [facility] 12-16-2018 pneumococcal polysaccharide vaccine, 23 valent Hafsa Knowles Other [facility] Other 11-07-2017 pneumococcal conjuga te vaccine, 13 valent Mally Key Jr. [facility] 11-07-2017 pneumococcal Conjuga te, unspecified formulation; Translations: [Need for prophylactic vaccination against Streptococcus pneumoniae (pneumococcus)] Hafsa Knowles Other [facility] Other 10-13-2017 pneumococcal polysaccharide vaccine, 23 valent Katie Almonte [facility] 04-14-2017 influenza virus vaccine, unspecified formulation Katie Almonte [facility] Payers Date Payer Category Payer Medicare [id number] 1957 Unknown [id number] 1945 Unknown [id number] 2.16.84 [id number] 1945 Unknown [id number] 2.16.84 [id number] 1945 Unknown [id number] 2.16.84 [id number] 1945 Unknown [id number] 2.16.84 [id number] 1945 Unknown [id number] 2.16.8 [id number] 1945 Unknown [id number] 2.16.8 [id number] 1945 Unknown [id number] 2.16.8 [id number] Social History Date Type Detail Facility Start: 12-05-2021 End: 02-20-2023 Tobacco smoking status Never smoked tobacco (finding) [facility] Sex Assigned At Female [facility] Tobacco smoking status Never [facility] Functional Status Date Assessment Result Facility 02-20-2023 Functional Status N/A [facility] 08-22-2022 Functional Status N/A [facility] Evaluation note 07-30-2023 Note Date & Type Note Facility 07-30-2023 Evaluation note Encounter Date Diagnosis Assessment Notes Jul, Acute non-recurrent maxillary sinusitis (ICD-10 - J01.00) [facility] Other Hospital Discharge instructions 02-20-2023 Note Date & Type Note Facility 02-20-2023 Hospital Discharg e instructions Patient Education 02/20/2023 09:58:29 Urinary Tract Infection, Adult, [id number] Urinary Tract Infection, Adult A urinary tract infection (UTI) is an infection of any part of the urinary tract. The urinary tract includes: The kidneys. The ureters. The bladder. The urethra. These organs make, store, and get rid of pee (urine) in the body. What are the causes? This infection is caused by germs (bacteria) in your genital area. These germs grow and cause swelling (inflammation) of your urinary tract. What increases the risk? The following factors may make you more likely to develop this condition: Using a small, thin tube (catheter) to drain pee. Not being able to control when you pee or poop (incontinence). Being female. If you are female, these things can increase the risk: ?Using these methods to prevent : ?A medicine that kills sperm (spermicide). ?A device that blocks sperm (diaphragm). ?Having low levels of a female hormone (estrogen). ?Being . You are more likely to develop this condition if: You have genes that add to your risk. You are sexually active. You take antibiotic medicines. You have trouble peeing because of: ?A prostate that is bigger than normal, if you are male. ?A blockage in the part of your body that drains pee from the bladder. ?A kidney stone. ?A nerve condition that affects your bladder. ?Not getting enough to drink. ?Not peeing often enough. You have other conditions, such as: ?Diabetes. ?A weak disease-fighting system (immune system). ?Sickle cell disease. ?Gout. ?Injury of the spine. What are the signs or symptoms? Symptoms of this condition include: Needing to pee right away. Peeing small amounts often. Pain or burning when peeing. Blood in the pee. Pee that smells bad or not like normal. Trouble peeing. Pee that is cloudy. Fluid coming from the vagina, if you are female. Pain in the belly or lower back. Other symptoms include: Vomiting. Not feeling hungry. Feeling mixed up (confused). This may be the first symptom in older adults. Being tired and grouchy (irritable). A fever. Watery poop (diarrhea). How is this treated? Taking antibiotic medicine. Taking other medicines. Drinking enough water. In some cases, you may need to see a specialist. Follow these instructions at home: Medicines Take narr-aqj-acogtzx and prescription medicines only as told by your doctor. If you were prescribed an antibiotic medicine, take it as told by your doctor. Do not stop taking it even if you start to feel better. General instructions Make sure you: ?Pee until your bladder is empty. ?Do not hold pee for a long time. ?Empty your bladder after sex. ?Wipe from front to back after peeing or pooping if you are a female. Use each tissue one time when you wipe. Drink enough fluid to keep your pee pale yellow. Keep all follow-up visits. Contact a doctor if: You do not get better after 1 2 days. Your symptoms go away and then come back. Get help right away if: You have very bad back pain. You have very bad pain in your lower belly. You have a fever. You have chills. You feeling like you will vomit or you vomit. Summary A urinary tract infection (UTI) is an infection of any part of the urinary tract. This condition is caused by germs in your genital area. There are many risk factors for a UTI. Treatment includes antibiotic medicines. Drink enough fluid to keep your pee pale yellow. This information is not intended to replace advice given to you by your health care provider. Make sure you discuss any questions you have with your health care provider. Document Revised: 02/10/2021 Document Reviewed: 02/10/2021 [employer] Patient Education 2022 [email or web address] Follow Up Care 08/22/2022 12:56:32 With:Gage JACOB, Katie Arteaga, URL, URO Address: When:Within 1 Year(s) [facility] Hospital Discharge instructions 08-22-2022 Note Date & Type Note Facility 08-22-2022 Hospital Discharg e instructions Patient Education 08/22/2022 12:51:50 Kegel Exercises Kegel Exercises Kegel exercises can help strengthen your pelvic floor muscles. The pelvic floor is a group of muscles that support your rectum, small intestine, and bladder. In females, pelvic floor muscles also help support the womb (uterus). These muscles help you control the flow of urine and stool. Kegel exercises are painless and simple, and they do not require any equipment. Your provider may suggest Kegel exercises to: Improve bladder and bowel control. Improve sexual response. Improve weak pelvic floor muscles after surgery to remove the uterus (hysterectomy) or (females). Improve weak pelvic floor muscles after prostate gland removal or surgery (males). Kegel exercises involve squeezing your pelvic floor muscles, which are the same muscles you squeeze when you try to stop the flow of urine or keep from passing gas. The exercises can be done while sitting, standing, or lying down, but it is best to vary your position. Exercises How to do Kegel exercises: 1.Squeeze your pelvic floor muscles tight. You should feel a tight lift in your rectal area. If you are a female, you should also feel a tightness in your vaginal area. Keep your stomach, buttocks, and legs relaxed. 2.Hold the muscles tight for up to 10 seconds. 3.Breathe normally. 4.Relax your muscles. 5.Repeat as told by your health care provider. Repeat this exercise daily as told by your health care provider. Continue to do this exercise for at least 4 6 weeks, or for as long as told by your health care provider. You may be referred to a physical therapist who can help you learn more about how to do Kegel exercises. Depending on your condition, your health care provider may recommend: Varying how long you squeeze your muscles. Doing several sets of exercises every day. Doing exercises for several weeks. Making Kegel exercises a part of your regular exercise routine. This information is not intended to replace advice given to you by your health care provider. Make sure you discuss any questions you have with your health care provider. Document Released: 06/17/2013 Document Revised: 02/18/2019 Document Reviewed: 02/18/2019 [employer] Patient Education 2020 [employer] Follow Up Care 06/13/2022 11:42:12 With:Gage JACOB, KEKE Carrera, URO Address: When: Unknown [facility] Hospital Discharge instructions 12-05-2021 Note Date & Type Note Facility 12-05-2021 Hospital Discharg e instructions Patient Education 12/05/2021 10:57:48 Renal Mass Renal Mass A renal mass is a growth in the kidney. A renal mass may be found while performing an MRI, CT scan, or ultrasound for other problems of the abdomen. Certain types of cancers, infections, or injuries can cause a renal mass. A renal mass that is cancerous (malignant) may grow or spread quickly. Others are harmless (benign). What are common types of renal masses? Renal masses include: Tumors. These may be cancerous (malignant) or noncancerous (benign). ?The most common type of kidney cancer is renal cell carcinoma. ?The most common benign tumors of the kidney include renal adenomas, oncocytomas, and angiomyolipoma (AML). Cysts. These are fluid-filled sacs that form on or in the kidney. ?It is not always known what causes a cyst to develop in or on the kidney. ?Most kidney cysts do not cause symptoms and do not need to be treated. What type of testing might I need? Your health care provider may recommend that you have tests to diagnose the cause of your renal mass. The following tests may be done if a renal mass is found: Physical exam. Blood tests. Urine tests. Imaging tests, such as ultrasound, CT scan, or MRI. Biopsy. This is a small sample that is removed from the renal mass and tested in a lab. The exact tests and how often they are done will depend on: The size and appearance of the renal mass. Risk factors or medical conditions that increase your risk for problems. Any symptoms associated with the renal mass, or concerns that you have about it. Tests and physical exams may be done once, or they may be done regularly for a period of time. Tests and exams that are done regularly will help monitor whether the mass is growing and beginning to cause problems. What are common treatments for renal masses? Treatment is not always needed for this condition. Your health care provider may recommend careful monitoring (watchful waiting) and regular tests and exams. Treatment will depend on the cause of the mass. Follow these instructions at home: What you need to do at home will depend on the cause of the mass. Follow the instructions that your health care provider gives to you. In general: Take zchz-kkp-jzdlsrd and prescription medicines only as told by your health care provider. If you are prescribed an antibiotic medicine, take it as told by your health care provider. Do not stop taking the antibiotic even if you start to feel better. Follow any restrictions that are given to you by your health care provider. Keep all follow-up visits as told by your health care provider. This is important. ?You may need to see your health care provider once or twice a year to have CT scans and ultrasounds done. These tests will show if your renal mass has changed or grown bigger. Contact a health care provider if you: Have pain in the side or back (flank pain). Have a fever. Feel full soon after eating. Have pain or swelling in the abdomen. Lose weight. Get help right away if: Your pain gets worse. There is blood in your urine. You cannot urinate. You have chest pain. You have trouble breathing. Summary A renal mass is a growth in the kidney. It may be cancerous (malignant) and grow or spread quickly, or it may be harmless (benign). Renal masses may be found while performing an MRI, CT scan, or ultrasound for other problems of the abdomen. Your health care provider may recommend that you have tests to diagnose the cause of your renal mass. This may include a physical exam, blood tests, urine tests, imaging, or a biopsy. Treatment is not always needed for this condition. Careful monitoring (watchful waiting) may be recommended. This information is not intended to replace advice given to you by your health care provider. Make sure you discuss any questions you have with your health care provider. Document Released: 01/26/2015 Document Revised: 08/07/2018 Document Reviewed: 08/07/2018 [employer] Patient Education 2020 [email or web address]. Follow Up Care 06/07/2021 13:20:37 With:Shahid Ontiveros MD, Mally Mendiola [facility] Address: [facility] [address], [place] [address]- When: Unknown [facility] Evaluation + Plan note Note Date & Type Note Facility Evaluation + Plan note No data available for this section [facility] Evaluation + Plan note Note Date & Type Note Facility Evaluation + Plan note Future Appointments Appointment Date:02/20/2023 10:45:00 AM Scheduled Provider:Gage JACOB, Katie Arteaga Location:[facility] Appointment Type:URO Office Visit [facility] Evaluation + Plan note Note Date & Type Note Facility Evaluation + Plan note Future Appointments Appointment Date:02/26/2024 10:45:00 AM Scheduled Provider:Katie Almonte MD Location:[facility] Appointment Type:URO Office Visit [facility] History general Narrative - Reported Note Date & Type Note Facility History general Narrative - Reported Type Medical History OSTEOPENIA Medical History HYPERCALCEMIA Medical History hyperparathyroidism, primary Surgical History SPLEEN REMOVED 1989 Surgical History ORAL SURGERY Surgical History TUBILIGATION Surgical History TOTAL HYSTRECTOMY Surgical History OOPHRECTOMY Surgical History RT KNEE ARTHOSCOPIC Surgical History TWO DENTAL IMPLANTS Surgical History parathyroidectomy Surgical History cholecystectomy Surgical History cataracts, bilaterally Hospitalization History SEE ABOVE SURGERY Hospitalization History CHILD X'S 2 Wattage Other Progress note Note Date & Type Note Facility Progress note No data available for this section [facility] Summary Purpose Family History No Family History Records FoundNo Family History Records Found Advance Directives No Advanced Directives Records FoundNo Advanced Directives Records Found Additional Source Comments INFORMATION SOURCE (unrecogn ized section and content) DATE CREATED AUTHOR 08/02/2022 [facility] [place] [facility] DATE CREATED AUTHOR AUTHOR'S ORGANIZ ATION 02/22/2023 [facility] Patient Care team informatio n (unrecognized section and content) Personnel Name: HAFSA KNOWLES MD Address: Address: [address] [place] [address] Personnel Name: HAFSA KNOWLES MD Address: Address: [address] [place] [address] REASON FOR VISIT (unrecogniz ed section and content) message FOR RECORDS PERTAINING TO PATIENTS WHO ARE OR HAVE BEEN ENROLLED IN A CHEMICAL DEPENDENCY/SUBSTANCEABUSE PROGRAM, SOME INFORMATION MAY BE OMITTED. This clinical summary was aggregated from multiple sources. Caution should be exercised in using it in the provision of clinical care. This summary normalizes information from multiple sources, and as a consequence, information in this document may materially change the coding, format and clinical context of patient data. In addition, data may be omitted in some cases. CLINICAL DECISIONS SHOULD BE BASED ON THE PRIMARY CLINICAL RECORDS. [facility] [employer] [facility]. provides no warranty or guarantee of the accuracy or completeness of information in this document.
--- NOTE | 2023-07-31 12:44 | XR_ITS ---
The [address] [address] Patient Name: BHAVESH MONTEIRO MRN: [id number] date: 1945 Sex: F Assigned Patient Location: RAD Current Patient Location: RAD Accession/Order Number: [id number] Exam Date: 07/31/2023 12:55 Report Date: 07/31/2023 13:23 At the request of: HARLAN KNOWLES Procedure: XR sinus min 3V EXAMINATION: XR sinus min 3V HISTORY: Acute Non Recurrent Maxillary Sinusitis J01.00 COMPARISON: No relevant comparison available. FINDINGS: MAXILLARY: No mucosal thickening or fluid level. ETHMOID: No mucosal thickening or fluid level. FRONTAL: No mucosal thickening or fluid level. SPHENOID: No mucosal thickening or fluid level. OTHER: Negative. XR/XR sinus min 3V IMPRESSION: Clear paranasal sinuses Electronically authenticated by: CARLO RICHARDSON Date: 07/31/2023 13:23
== END 2023-07-31 12:36 | disposition home or self-care (01) ==
LOC: RAD 12:37
PROVIDERS: PCP Family Medicine; Visit Provider Family Medicine
DX: J01.00 Acute maxillary sinusitis, unspecified (principal)
CPT/HCPCS: 70220

== ENCOUNTER 2023-09-23 14:01 | Outpatient (OUT) | payer MEDICARE, OTHER, SELFPAY ==
--- NOTE | 2023-09-23 | XR_ITS ---
The [address] [address] Patient Name: BHAVESH MONTEIRO MRN: [id number] date: 1945 Sex: F Assigned Patient Location: Current Patient Location: Accession/Order Number: [id number] Exam Date: 09/23/2023 14:30 Report Date: 09/24/2023 09:34 At the request of: FEMI MAGUIRE Procedure: XR knee RT 4V PROCEDURE: XR knee RT 4V COMPARISON: HISTORY: RIGHT KNEE PAIN FINDINGS: BONES:No acute fracture or dislocation. Moderate tricompartmental osteoarthropathy with joint space narrowing marginal osteophyte formation most significant in the lateral compartment SOFT TISSUES:Likely varicosities. Vascular calcifications EFFUSION:None visible. OTHER: Negative. XR/XR knee RT 4V IMPRESSION: Moderate tricompartmental osteoarthritis Electronically authenticated by: CARLO RICHARDSON Date: 09/24/2023 09:34
== END 2023-09-23 14:02 | disposition home or self-care (01) ==
LOC: EC 14:01
PROVIDERS: PCP Family Medicine; Visit Provider Student in an Organized Health Care Education/Training Program
DX: M25.561 Pain in right knee (principal)
CPT/HCPCS: 73564

== ENCOUNTER 2024-02-12 13:22 | Outpatient (OUT) | payer MEDICARE, OTHER, SELFPAY ==
--- NOTE | 2024-02-12 13:26 | MM_ITS ---
Patient Name: BHAVESH MONTEIRO MR#: [id number] : 1945 Exam Date: 02/12/2024 Ordering Doctor: DR Hafsa Browning M.D. RADIOLOGY REPORT PROCEDURE: MM TOMOSYNTHESIS SCREENING BI COMPARISON: MG MAMM HAYDEE SCRN W CAD DIG, 05/23/2015. MG MAMM SCREEN HAYDEE W CAD, 11/01/2016. INDICATIONS: Screening Calculator Name NCI Breast Cancer Risk Assessment Tool 5 Year Breast Cancer Risk Not Reported. Lifetime Breast Cancer Risk Not Reported. Personal Breast Cancer No Personal Ovarian Cancer No Treatments None Family Cancers None LOCATION: [facility] BREAST COMPOSITION: There are scattered areas of fibroglandular density. FINDINGS: DIAGNOSTIC CATEGORY 2--BENIGN FINDING. NO CHANGE FROM COMPARISON. Scattered benign-appearing calcifications are present. Scattered benign-appearing lymph nodes are present. RIGHT BREAST: No significant suspicious finding. Micro clip marker upper outer quadrant, mid breast, stable. LEFT BREAST: No significant suspicious finding. RECOMMENDATIONS: ROUTINE MAMMOGRAM AND CLINICAL EVALUATION IN 12 MONTHS. PLEASE NOTE: A NORMAL MAMMOGRAM DOES NOT EXCLUDE THE POSSIBILITY OF BREAST CANCER. A CLINICALLY SUSPICIOUS PALPABLE LUMP SHOULD BE BIOPSIED. Dictated by: Quenitn Hernandez MD on 02/12/2024 at 15:05 Approved by: Quentin Hernandez MD on 02/12/2024 at 15:06
--- OUTSIDE RECORDS SUMMARY | 2024-02-12 13:37 | XMS_ITS | CCD ---
Author Organization [facility] [place] Inform ion [facility] Care Team Providers Care Music Box Mechanic Name Role Phone HAFSA KNOWLES Primary Care Physician [phone] SAMUEL, DR ANTWON Sharma Admitting Unavailparadise BAKER, DR ANTWON Sharma Attending Unavailparadise e BENSON, DR HAFSA Sharma Primary Care Unavailable SAMUEL, DR ANTWON Sharma Consulting Unavailparadise e EMILEE VARMA Consulting Unavailable FILUTZBETZY Sharma Consulting Unavailable SHAHID ORTEGA, DR MALLY Mendiola Admitting Unavailparadise KEY JR, DR MALLY Mendiola Attending Unavailparadise e BENSON, DR HAFSA Sharma Primary Care Unavailable SHAHRIAR, DR DARIO Duarte Consulting Unavailable SHAHID ORTEGA, DR MALLY Mendiola Consulting Unavailabl e BENSON, DR HAFSA Sharma Admitting Unavailable KNOWLES, DR HAFSA Sharma Attending Unavailable KNOWLES, DR HAFSA Sharma Primary Care Unavailable SHAHRIAR, DR DARIO Duarte Consulting Unavailable SHAHID ORTEGA, DR MALLY Mendiola Consulting Unavailparaidse e SAMUEL, DR ANTWON Sharma Admitting Unavailabl e SAMUEL, DR ANTWON Sharma Attending Unavailparadise KNOWLES, DR HAFSA Sharma Primary Care Unavailable SAMUEL, DR ANTWON Sharma Consulting UnavailHafsa Hernandez Katie Almonte Attending Unavailable Katie Almotne Attending Unavailable Katie Almonte Attending Unavailable Katie Almonte Admitting Unavailable Allergies Allergy Classification Reported Allergen(s) Allergy Type Date of Onset Reaction(s) Facility (9 sources) Codeine; Translations: [codeine] Drug Allergy 12-26-19 16 nausea, Unknown, Hives [facility] (1 source) Codeine Drug Allergy [facility] Repository (2 sources) Acetaminophen / HYDROcodone Drug Allergy Unknown [facility] Other (2 sources) Codeine Drug Allergy Unknown [facility] Other (2 sources) patient allergy list reviewed by nurse or physicia Propensity to adverse reactions 04-29-20 15 Comment:Done [facility] Other (2 sources) Allergies Reconciled Propensity to adverse reactions Unknown [facility] Other (1 source) Acetaminophen Drug Allergy 01-24-20 [facility] (1 source) HYDROcodone Drug Allergy 01-24-20 [facility] Medications Current Medications Medication Drug Class(es) Dates Sig (Normalized) Sig (Original) biotin 5 mg oral capsule (8 sources) Start: 01-21-2024 take 5 mg by mouth once daily Biotin Active 5 MG PO Daily January 21, 2024 12:00am Start: 10-25-2020 biotin 5000 mc g oral capsule Refills(s) 0 Start Date: 10/25/20 Status: Ordered take 1 capsule by [facility] once daily Biotin 5000 5 MG 1 capsule Orally Once a day Active cephalexin 500 mg oral capsule (1 source) Cephalosporin Antibacterial Start: 12-05-2021 take 1 capsule by mouth every twelve hours Keflex 500 mg Cap 500 mg = 1 cap(s), Oral, q12hr, # 6 cap(s), Refills(s) 0, Pharmacy: [id number], 168, cm, 12/05/21 10:16:00 EDT, Height/Length Dosing, 97.5, kg, 12/05/21 10:16:00 EDT, Weight Dosing Start Date: 12/05/21 Status: Ordered cholecalciferol 0.025 mg oral capsule (1 source) Vitamin D Start: 01-21-2024 take 25 ug by mouth once daily Cholecalciferol (Vitamin D3) Active 25 MCG PO Daily January 21, 2024 12:00am ciprofloxacin 500 mg oral tablet (2 sources) Quinolone Antimicrobial Start: 07-23-2023 take 1 tablet by mouth every twelve hours Ciprofloxacin HCl 500 MG 1 tablet Orally every 12 hrs for 7 days Jul, Active estradiol 0.1 mg/ml vaginal cream (5 sources) Estrogen Start: 01-24-2024 Estradiol (Estrace) 0.01 % (0.1 mg/gram) cream Active 1 APPLICATOR VAGINAL Daily January 24, 2024 12:00am for 14 days Start: 01-15-2024 Estrace 0.1 mg /g Cream See Instructions, 42.5 gm, Refill(s) 6, Apply pea-sized amound around the opening of the urethra 3 times per week for 1 month then 2 times per week after for maintenance., [id number], 168, cm, 01/15/24 10:54:00 EDT, Height/Length Dosing, 96, kg, 01/15/24 10:54:00 EDT, Weight Dosing Start Date: 01/15/24 Status: Ordered Start: 08-22-2022 Estrace 0.1 mg /g Cream See Instructions, 42.5 gm, Refill(s) 6, Apply pea-sized amound around the opening of the urethra 3 times per week for 1 month then 2 times per week after for maintenance., [facility], 168, cm, 08/22/22 11:52:00 EST, Height/Length Dosin... Start Date: 08/22/22 Status: Ordered fexofenadine hydrochloride 60 mg oral tablet (6 sources) Histamine-1 Receptor Antagonist Start: 01-24-2024 take 1 tablet by mouth twice daily Fexofenadine (Mary Allergy) 60 mg tablet Active 60 MG PO Twice daily January 24, 2024 12:00am Start: 10-25-2020 Mary Oral, Refills(s) 0 Start Date: 10/25/20 Status: Ordered nitrofurantoin, macrocrystals 50 mg oral capsule (2 sources) Nitrofuran Antibacterial Start: 01-24-2024 take 50 mg by mouth once daily at mealtime Nitrofurantoin Macrocrystal Active 50 MG PO Daily January 24, 2024 11:34am must administer with a meal/food Start: 01-24-2024 End: 01-24-2024 take 100 mg by mouth twice daily at mealtime Nitrofurantoin Macrocrystal Discontinued 100 MG PO Twice daily January 24, 2024 12:00am January 24, 2024 11:35am must administer with a meal/food sulfamethoxazole 800 mg / trimethoprim 160 mg oral tablet (2 sources) Dihydrofolate Reductase Inhibitor Antibacterial, Sulfonamide Antimicrobial Start: 06-25-2023 take 1 tablet by mouth every twelve hours Bactrim DS 800-160 MG 1 tablet Orally Twice a day for 10 day(s) Jun, Active Vitamin D-3 1000 UNIT (2 sources) take 1 capsule by mouth once daily Vitamin D-3 1000 UNIT 1 capsule Orally Once a day Active Completed/Discontinued Medications Medication Drug Class(es) Dates Sig (Normalized) Sig (Original) omeprazole 40 mg delayed release oral capsule (3 sources) Proton Pump Inhibitor Start: 01-21-2024 End: 01-24-2024 take 40 mg by mouth once daily Omeprazole Discontinued 40 MG PO Daily January 21, 2024 12:00am January 24, 2024 11:02am Start: 09-05-2020 take 1 capsule by [facility] once daily Omeprazole 40 MG Omeprazole 40MG, 1 (one) Capsule daily # 30, 09/05/2020, Ref. x2. Active Oral daily for 30 Aug, Active Vitamin D3 5000 intl units oral capsule (5 sources) Start: 10-25-2020 take 1 capsule by mouth once daily at mealtime Vitamin D3 5000 intl units oral capsule 5,000 International_Unit = 1 cap(s), Oral, Daily, with food, # 100 cap(s), Refills(s) 0 Start Date: 10/25/20 Status: Ordered Problems Active Problems Problem Classification Problem Date Documented Da te Episodic/Chronic Abdominal pain (2 sources) Left upper quadrant pain; Translations: [Left upper quadrant pain] Episodic Allergic reactions (2 sources) Contact dermatitis due to plants; Translations: [Unspecified contact dermatitis due to plants, except food] Episodic Biliary tract disease (17 sources) Biliary calculus; Translations: [Gallstone] 07-09-2019 Episodic Deficiency and other anemia (5 sources) Anemia 10-25-2020 Episodic Genitourinary congenital anomalies (2 sources) Multiple congenital cysts of kidney; 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, unspecified] Chronic Genitourinary symptoms and ill-defined conditions (14 sources) Urgent desire to urinate; Translations: [Urgency of urination] Onset: 08-22-2022 Episodic Menopausal disorders (11 sources) Atrophic vaginitis; Translations: [Postmenopausal atrophic vaginitis] Onset: 11-07-2017 Chronic Nutritional deficiencies (2 sources) Vitamin D deficiency; Translations: [Vitamin D deficiency, unspecified] Chronic Osteoarthritis (5 sources) Arthritis 10-25-2020 Chronic Other bone disease and musculoskeletal deformities (7 sources) Osteopenia; Translations: [Other specified disorders of bone density and structure, unspecified site] 07-09-2019 Episodic Other circulatory disease (2 sources) Elevated blood-pressure reading without diagnosis of hypertension; Translations: [Elevated blood-pressure reading, without diagnosis of hypertension] Episodic Other diseases of kidney and ureters (3 sources) Disorder of kidney and/or ureter; Translations: [...] Episodic Other diseases of kidney and ureters (3 sources) Acquired renal cyst without neoplastic change; Translations: [Cyst of kidney, acquired] Onset: 08-22-2022 Episodic Other diseases of kidney and ureters (4 sources) Cyst of kidney 08-22-2022 Episodic Other endocrine disorders (7 sources) Hyperparathyroidis m; Translations: [Hyperparathyroidi sm, unspecified] Onset: 07-24-2016 07-09-2019 Chronic Other endocrine disorders (2 sources) Primary hyperparathyroidis m; Translations: [Primary hyperparathyroidis m] Chronic Other non-traumatic joint disorders (4 sources) Arthralgia of the lower leg; Translations: [Pain in joint, lower leg] Onset: 11-07-2017 Episodic Other nutritional; endocrine; and metabolic disorders (2 sources) Obesity; Translations: [Obesity, unspecified] Chronic Other nutritional; endocrine; and metabolic disorders (2 sources) Hypercalcemia; Translations: [Hypercalcemia] Chronic Other screening for suspected conditions (not mental disorders or infectious disease) (4 sources) Elevated liver enzymes level; Translations: [Other specified abnormal findings of blood chemistry] 01-24-2024 Episodic Other upper respiratory disease (2 sources) Allergic rhinitis; Translations: [Allergic rhinitis, unspecified] Onset: 04-13-2016 Chronic Other upper respiratory infections (2 sources) Chronic sinusitis; Translations: [Chronic sinusitis, unspecified] Chronic Thyroid disorders (5 sources) Thyroid nodule 07-09-2019 Chronic Urinary tract infections (3 sources) Acute cystitis; Translations: [Acute cystitis without hematuria] Onset: 12-05-2021 Episodic Past or Other Problems Problem Classification Problem Date Documented Da te Episodic/Chronic Other bone disease and musculoskeletal deformities (2 sources) Bone density finding; Translations: [Other specified disorders of bone density and structure, unspecified site] Onset: 07-25-2015 Episodic Other upper respiratory infections (3 sources) Acute sinusitis; Translations: [Acute sinusitis, unspecified] Onset: 04-29-2015 Episodic Unclassified (2 sources) Abnormal result; Translations: [Other abnormal clinical finding] Onset: 12-11-2016 Results Test Name Value Interpretation Reference Range Facil ity C Urineon 01-19-2024 Bacteria identified Cx Nom (U) Microbiology PROCEDURE: Urine Culture [R1] SOURCE: U CleanCatch BODY SITE: COLLECTED DATE/TIME: 01/15/2024 14:29 EDT RECEIVED DATE/TIME: 01/15/2024 17:37 EDT START DATE/TIME: 01/15/2024 17:37 EDT FREE TEXT SOURCE: Gage JACOB, Katie Almonte MD, Katie Arteaga FINAL REPORTS Final Report [] Verified Date/Time: 01/19/2024 08:36 EDT >100,000 cfu/ml Escherichia coli 1,000 cfu/ml Mixed skin contaminants SUSCEPTIBILITY RESULTS ____ LEGEND: S=Susceptible, N/R=Not Reported, Blank=Data not available, or drug not advisable or tested, I=Intermediate, ESBL=Extended spectrum beta-lactamase, R=Resistant, TFG=Thymidine-dependent strain, DONNIE=Beta-lactamase positive, PADDY=mcg/m;(mg/L), S*=Predicted susceptible interp, R*=Predicted resistant interp ___ EC Antibiotic PADDY Dilutn PADDY Interp Ampicillin <=8 S Ampicillin/ <=8/4 S Sulbactam Aztreonam <=4 S Cefazolin <=2 S Cefepime <=2 S Ceftazidime <=1 S Ceftazidime/ <=8 S Avibactam Ceftriaxone <=1 S Cefuroxime <=4 S Ciprofloxacin <=0.25 S Ertapenem <=0.5 S Gentamicin <=2 S Levofloxacin <=0.5 S Meropenem <=1 S Nitrofurantoin <=32 S Piperacillin/ <=8 S Tazobactam Tetracycline <=4 S Tobramycin <=2 S Trimethoprim/ <=2/38 S Sulfa Performing Locations R1: This test was performed at: [facility], [address] [place] [address], [facility]- , , [facility] Comment on above: Performed By: #### [id number] #### [facility] [address] [place] [address] Ambulatory Visit Summaryon 0 01-15-2024 Ambulatory Visit Summary Ambulatory Visit Summary DAMON KANBelle Duarte :1945 Visit Date:01/15/2024 Ambulatory Visit Instructions Your Diagnosis Asymptomatic bacteriuria Urgency of urination Vaginal atrophy Renal cyst Your Care Team Attending Physician - Gage JACOB, Katie Arteaga Primary Care Physician - BENSON JACOB, HAFSA This Is Your Medications List estradiol topical [...] Cataracts, TL - Tubal ligation. Discharge Vitals Temperature (Temporal Artery) 36.6 ?C Heart Rate (Peripheral) 71 Blood Pressure 132/78 Height 168 cm Height 66 in Weight 96 kg Weight 211.2 lb BMI 34.01 What to do next You Need to Schedule the Following Appointments Follow Up with Gage JAOCB, KEKE Carrera, [facility] When: Where: [address] [place] [address]- [phone] Medications What How Much When Instructions Unchanged estradiol topical (Estrace 0.1 mg/ g Cream) See instructions Apply pea-sized amound around the opening of the urethra 3 times per week for 1 month then 2 times per week after for maintenance. Pickup at [facility] Unchanged biotin (biotin 5000 mcg oral capsule) Contact prescribing physician if questions or concerns Unchanged cholecalciferol (Vitamin D3 5000 intl units oral capsule) 1 Capsules By Mouth Every day with food Contact prescribing physician if questions or concerns Unchanged fexofenadine (Mary) By Mouth Contact prescribing physician if questions or concerns Pharmacy Information [facility]: [address] [place], [place] [id number] [phone] Allergies codeine (nausea) Problems Ongoing - Any problem that you are currently receiving treatment for. Asymptomatic bacteriuria Calculus of gallbladder Hyperparathyroidism Osteopenia Renal cyst Symptomatic cholelithiasis Urgency of urination Vaginal atrophy Historical - Any problem that you are no longer receiving treatment for. Anemia Arthritis Cholelithiasis Thyroid nodule Patient Survey You may receive a survey via text or e-mail asking about your office visit. Please share your experience with us by completing your survey. We appreciate your feedback and thank you for choosing us for your care. Education Materials Kegel Exercises Kegel exercises can help strengthen your pelvic floor muscles. The pelvic floor is a group of muscles that support your rectum, small intestine, and bladder. In females, pelvic floor muscles also help support the uterus. These muscles help you control the flow of urine and stool (feces). Kegel exercises are painless and simple. They do not require any equipment. Your provider may suggest Kegel exercises to: ? Improve bladder and bowel control. ? Improve sexual response. ? Improve weak pelvic floor muscles after surgery to remove the uterus (hysterectomy) or after , in females. ? Improve weak pelvic floor muscles after prostate gland removal or surgery, in males. Kegel exercises involve squeezing your pelvic floor muscles. These are the same muscles you squeeze when you try to stop the flow of urine or keep from passing gas. The exercises can be done while sitting, standing, or lying down, but it is best to vary your position. Ask your health care provider which exercises are safe for you. Do exercises exactly as told by your health care provider and adjust them as directed. Do not begin these exercises until told by your health care provider. Exercises How to do Kegel exercises: 1. Squeeze your pelvic floor muscles tight. You should feel a tight lift in your rectal area. If you are a female, you should also feel a tightness in your vaginal area. Keep your stomach, buttocks, and legs relaxed. 2. Hold the muscles tight for up to 10 seconds. 3. Breathe normally. 4. Relax your muscles for up to 10 seconds. 5. Repeat as told by your health [...] routine. This information is not intended to (more content not included)... Normal [facility] Urology Office/Clinic Noteon 01-15-2024 Urology Office/Clinic Note Urology Office/Clinic Note Chief Complaint 11 month follow up, needs clearance for right knee replacement surgery HPI Staff 11 month follow up. Needs a release from Dr. Almonte for right knee replacement for Dr. Johny Huynh. DX: Urgency, Renal Cyst, Microscopic Hematuria & Vaginal atrophy *Estrace Cream therapy Only had enough urine for a UA. Dysuria: denies Incomplete bladder emptying: denies Hematuria: denies visible blood Frequency: denies Urgency: denies Nocturia: once a night Stream: denies hesitancy, steady then turns to weak stream Leaking: denies Post void dripping: denies Wearing pads/ Depends: denies Urge incontinence: denies Stress incontinence: denies Incontinence without Sensory Awareness: denies Abdominal pain: denies Flank pain: denies Sexual complaints: _ History of Present Illness Tests reviewed: reviewed UA I have reviewed the previous health record information and history for this patient from Dr. Almonte. I have reviewed and verified the staff HPI to be accurate for this encounter. Review of Systems PHQ Score Initial Depression Screen Score: 0 SCORE ROS - Provider Constitutional: denies weight loss, denies hot flashes. Eyes: denies eye problems. Gastrointestinal: denies nausea, denies vomiting. Cardiovascular: denies chest pain or angina. Integumentary: no dryness Musculoskeletal: denies musculoskeletal symptoms. ENMT: denies otolaryngeal symptoms. Respiratory: no shortness of breath. Heme/Lymph: denies easy bleeding tendency, denies easy bruising tendency. Psychiatric: no confusion, no anxiety. Genitourinary: See HPI. Physical Exam Vitals & Measurements T: 36.6 ?C(Temporal Artery) HR: 71(Peripheral) BP: 132/78 HT: 66 in HT: 168 cm WT: 96 kg WT: 211.2 lb BMI: 34.01 General Appearance: alert , no acute distress, well nourished, well developed female. Assessment/Plan 78 yo F here for 1. Asymptomatic bacteriuria (R82.71: Bacteriuria) Prior +UA 11/2021 treated with keflex x 3 days. No change in urinary sx. Had +UA at last encounter but agreed to not proceed with treatment. UA today negative for blood and infection, only shows positive nitrites. Asx. States she has an upcoming knee surgery and surgeon would like pt to be treated prior to proceeding. States she only gave a drop for urine sample today, not enough to send for culture. -Will come in later to drop off sample. Again discussed with pt to start D-mannose, cranberry, and probiotics to help decrease the number of urinary tract infections. D-mannose works by the bacteria clinging to the sugars vs the bladder wall, cranberry making it harder for the bacteria to cling to the bladder wall, and probiotics which increases the number of good bacteria. -Drop off urine sample to our office to be sent for culture and treat due to upcoming surgery -Start OTC UTI preventative supplements -Timed voids and emptying maneuvers 2. Urgency of urination (R39.15: Urgency of urination) States she does have dropped bladder. Occasional slow stream for yrs. [1] -Can re-discuss pessary or other tx options in future or if sxs become bothersome. [2] BBS 12 (11). Previously reported mild intermittent urgency only after sitting in chair for extended period of time then getting up. Still reports mild sxs and admits she does not practice Kegels often. Recommended pt to do this while watching tv or other activities to help strength pelvic muscles. -Timed voids and emptying maneuvers -Kegels 3. Vaginal atrophy (N95.2: Postmenopausal atrophic vaginitis) Using Estrace cream when she remembers. Denies any burning/pain. No infections since last encounter. -Cont Estrace cream. Refills sent to [facility]. 4. Renal cyst (N28.1: Cyst of kidney, acquired) [...] monitoring. No further imaging at this time. [3] Follow-up With When Contact Information Gage JACOB, Katie Arteaga, URL, [facility] [address] [place] [address]- [phone] Additional Instructions: pt's choice on when to schedule f/u Patient Education Kegel Exercises I, Yuliana Olson, personally scribed for Dr. Almonte on 01/15/2024 11:27:08. . Documentation recorded by the scribe, Yuliana Olson, accurately reflects the services(s) I performed and decisions made by me. Authenticated by Dr. Almonte on 01/15/2024 23:28:03. Problem List/Past Medical History Ongoing Asymptomatic bacteriuria Calculus of gallbladder Hyperparathyroidism Osteopeni (more content not included)... Normal [facility] Comment on above: Result Comment: Elec tronically Signed By: Gage JACOB, Katie Arteaga\.br\Date and Time Signed: 01/15/24 23:28 EDT\.br\Electronically Co-Signed By: Yuliana Olson\.br\Date and Time Co-Signed: 01/15/24 11:27 EDT [place] 02-21-2023 Screens [id number] D:127 Normal [facility] Patient Educationon 02-21-20 Patient Education Obstetrics and Gynecology Urinary Tract [...] these instructions at home: Medicines ? Take isei-lid-bxcfqam and prescription medicines only as told by [...] provider. Document Revised: 02/10/2021 Document Reviewed: 02/10/2021 [employer] Patient Education ? 2022 [employer]. [facility] Urology Office/Clinic Noteon 02-20-2023 Urology Office/Clinic Note [...] medical exam (more content not included)... Normal [facility] Comment on above: Result Comment: Elec tronically Signed By: Katie Almonte MD\.br\Date and Time Signed: 02/20/23 12:03 EDT\.br\Electronically Co-Signed By: Sepideh Perez\.br\Date and Time Co-Signed: 02/20/23 11:49 EDT Covid-19 PCR (CVDTB)on 07-15 SARS-CoV-2 (COVID-19) RNA AZUL+probe Ql (Unsp spec) Not detected Normal NOT DETECTED [facility] Comment on above: Result Comment: This test is not yet approved or cleared by the [place] FDA. When there are no FDA-approved or cleared tests available, and other criteria are met, FDA can make tests available under an emergency access mechanism called an Emergency Use Authorization (EUA). The EUA for this test is supported by the Ring Cutter Lathe Operator of Health and Human Service's (HHS's) declaration [...] consistent with SARS-CoV-2. Performed By: #### C VDTB #### [facility] [address] [place] [address] Dr. Manjula Arzate CREATININEon 06-13-2022 Creatinine [Mass/Vol] 0.98 mg/dL Normal 0.55-1.02 [facility] Comment on above: Performed By: #### C JESUS #### [facility] [address] [place] [address] Dr. Manjula Arzate EGFR-AF EMIRATI >60 Normal >=60 [facility] Comment on above: Performed By: #### C JESUS #### [facility] [address] [place] [address] Dr. Manjula Arzate EGFR-NON AF EMIRATI 55 mL/min/1.73m2 Critically low >=60 [facility] Comment on above: Performed By: #### C JESUS #### [facility] [address] [place] [address] ABD/PELV W CONon 06-13-20 CT ABD/PELV W CON EXAMINATION: CT ABD/PELV [...] by: DARIO BESS Date: 2022-06-13 17:40 Normal [facility] CT ABD/PELVIS WO CONon 11-27 CT ABD/PELVIS [...] by: DARIO BESS Date: 2021-11-27 10:41 Normal [facility] Vital Signs Date Time Vital Sign Value Performing Clinician Facility 01-24-2024 10:54-0400 Body height 165.1 cm [facility] 01-24-2024 10:54-0400 Body mass index (BMI) [Ratio] 35.6 kg/m2 [facility] 01-24-2024 10:54-0400 Body weight 97.06 kg [facility] 01-24-2024 10:54-0400 Diastolic blood pressure 81 mm[Hg] [facility] 01-24-2024 10:54-0400 Heart rate 71 /min [facility] 01-24-2024 10:54-0400 Systolic blood pressure 121 mm[Hg] [facility] 01-15-2024 10:37-0400 Blood Pressure Location Katie Lue [facility] 01-15-2024 10:37-0400 Body temperature 97.88 [degF] Katie Lue [facility] 01-15-2024 10:37-0400 Diastolic blood pressure 78 mm[Hg] Katie Lue [facility] 01-15-2024 10:37-0400 Heart rate 71 /min Katie Lue [facility] 01-15-2024 10:37-0400 Systolic blood pressure 132 mm[Hg] Katie Lue [facility] 02-20-2023 10:53-0400 Blood Pressure Location Katie Lue [facility] 02-20-2023 10:53-0400 Diastolic blood pressure 76 mm[Hg] Katie Lue [facility] 02-20-2023 10:53-0400 Heart rate 68 /min Katie Lue [facility] 02-20-2023 10:53-0400 Respiratory rate 16 /min Katie Lue [facility] 02-20-2023 10:53-0400 Systolic blood pressure 130 mm[Hg] Katie Lue [facility] 08-22-2022 11:50-0500 Blood Pressure Location Katie Lue [facility] 08-22-2022 11:50-0500 Diastolic blood pressure 78 mm[Hg] Katie Lue [facility] 08-22-2022 11:50-0500 Heart rate 68 /min Katie Lue [facility] 08-22-2022 11:50-0500 Respiratory rate 16 /min Katie Lue [facility] 08-22-2022 11:50-0500 Systolic blood pressure 132 mm[Hg] Katie Lue [facility] 12-05-2021 10:33-0400 Diastolic blood pressure 81 mm[Hg] Mally Key Jr. [facility] 12-05-2021 10:33-0400 Mean blood pressure 101 mm[Hg] Mally Key Jr. [facility] 12-05-2021 10:33-0400 Systolic blood pressure 142 mm[Hg] Mally Key Jr. [facility] 12-05-2021 10:12-0400 Blood Pressure Location Mally Key Jr. [facility] 12-05-2021 10:12-0400 Diastolic blood pressure 97 mm[Hg] Mally Key Jr. [facility] 12-05-2021 10:12-0400 Heart rate 87 /min Mally Key Jr. [facility] 12-05-2021 10:12-0400 Respiratory rate 16 /min Mally Key Jr. [facility] 12-05-2021 10:12-0400 Systolic blood pressure 163 mm[Hg] Mally Key Jr. [facility] Encounters Encounter Date Encounter Type Care Provider Facility Start: 01-24-2024 End: 01-24-2024 ambulatory [facility] Work Phone: Start: 01-24-2024 End: 01-24-2024 Patient encounter procedure [facility] Work Phone: Start: 01-15-2024 End: 01-15-2024 ambulatory Katie M. Lue Facility:[facility] Start: 01-15-2024 End: 01-15-2024 Lab Drop off Katie M. Lue [facility] Start: 01-15-2024 End: 01-15-2024 ambulatory Katie M. Lue Facility:[facility] Start: 01-15-2024 End: 01-15-2024 Patient encounter procedure Katie M. Lue [facility] Start: 08-01-2023 End: 08-01-2023 ambulatory Hafsa Knowles Other [facility] Other Start: 08-01-2023 Telephone encounter Hafsa Knowles [facility] Start: 07-30-2023 End: 07-30-2023 ambulatory Hafsa Knowles Other [facility] Other Start: 07-30-2023 Telephone encounter Hafsa Knowles [facility] Start: 02-20-2023 End: 02-20-2023 ambulatory Katie M. Lue Facility:[facility] [place] Start: 02-20-2023 End: 02-20-2023 Patient encounter procedure Katie M. Lue [facility] Start: 08-22-2022 End: 08-22-2022 Patient encounter procedure Katie M. Lue [facility] Start: 08-01-2022 End: 08-01-[address] ANTWON BAKER Facility:[facility] Start: 07-30-2022 End: 07-31-[address] ANTWON BAKER Facility:[facility] Start: 07-12-2022 Adult health examination Hafsa Knowles Other [facility] Other Start: 06-13-2022 End: 06-14-[address] HAFSA KNOWLES Facility:[facility] Start: 12-05-2021 End: 12-05-2021 Patient encounter procedure Mally Key Jr. [facility] Start: 11-27-2021 End: 11-28-[address] MALLY KEY JR Facility:[facility] Procedures Date Procedure Procedure Detail Performing Clinician Start: 07-29-2019 Cholecystectomy Mally Key Jr. Start: 07-15-2016 Parathyroidectomy Gregg Key Jr. Start: 12-26-2015 General examination of patient Hafsa Knowles Other Start: 04-29-2015 Laboratory test resu lt abnormal Hafsa Knowles Other Start: 04-29-2015 Screening mammography Mrevin Knowles Other Start: 12-26-2011 Colonoscopy Mally gilbert Jr. Start: 07-15-2009 Biopsy of breast Malyl Key Jr. Start: 07-15-1996 Total abdominal hyst erectomy with bilateral salpingo-oophorectomy Mally Key Jr. Start: 07-15-1989 Splenectomy Mally gilbert Jr. Bilateral cataracts (disorder) Mally Key Jr. Ligation of fallopian tube D prashanth Key Jr. Screening for malign ant neoplasm of breast Hafsa Knowles Other Plan of Treatment Date Care Activity Detail Author DXA Skeletal system. axial Views for bone density [facility] enter MG Breast - bilateral Screening [facility] Immunizations Immunization Date Immunization Notes Care Provider Zaid randolph 04-10-2022 SARS-CoV-2 (COVID-19 ) [id number] Katie Lue [facility] 04-11-2021 SARS-CoV-2 (COVID-19 ) mRNA BNT-162b2 vax Katie Lue [facility] 02-15-2021 zoster vaccine recombinant Katie Lue [facility] 11-30-2020 zoster vaccine recombinant Katie Lue [facility] 08-30-2020 SARS-CoV-2 (COVID-19 ) mRNA BNT-162b2 vax Katie Lue [facility] Comment on above: Result Comment: 2022: [id number] 08-09-2020 SARS-CoV-2 (COVID-19 ) mRNA BNT-162b2 vax Katie Lue [facility] Comment on above: Result Comment: 2022: [id number] 05-16-2020 influenza virus vaccine, split virus (incl. purified surface antigen) Hafsa Knowles Other [facility] Other 05-16-2020 influenza virus vaccine, unspecified formulation [facility] 04-26-2020 influenza virus vaccine, unspecified formulation Katie Lue [facility] 12-16-2018 pneumococcal polysaccharide vaccine, 23 valent Hafsa Knowles Other [facility] 11-07-2017 pneumococcal conjuga te vaccine, 13 valent Mally Key Jr. [facility] 11-07-2017 pneumococcal Conjuga te, unspecified formulation; Translations: [Need for prophylactic vaccination against Streptococcus pneumoniae (pneumococcus)] Hafsa Knowles Other [facility] Other 10-13-2017 pneumococcal polysaccharide vaccine, 23 valent Katie Almonte [facility] 04-14-2017 influenza virus vaccine, unspecified formulation Katie Almonte [facility] Payers Date Payer Category Payer Medicare [id number] 1957 Unknown [id number] 1945 Unknown [id number] 2.16.84 [id number] 1945 Unknown [id number] 2.16.84 [id number] 1945 Unknown [id number] 2.16.84 [id number] 1945 Unknown [id number] 2.16.84 [id number] 1945 Unknown [id number] 2.16.8 [id number] 1945 Unknown [id number] 2.16.8 [id number] 1945 Unknown [id number] 2.16.8 [id number] Medicare Medicare [id number] Social History Date Type Detail Facility Start: 12-05-2021 End: 07-23-2023 Tobacco smoking status Never smoked tobacco (finding) [facility] Sex Assigned At Female [facility] Tobacco smoking status Never [facility] Start: 1945 Sex Assigned At Female F [facility] Functional Status Date Assessment Result Facility 01-15-2024 Functional Status N/A [facility] 02-20-2023 Functional Status N/A [facility] 08-22-2022 Functional Status N/A [facility] Clinical Notes 12-05-2021 to 01-15-2024 Note Date & Type Note Facility 01-15-2024 Evaluation + Plan note Diagnostic Tests PendingUrine Culture 01/15/24 [facility] 01-15-2024 Hospital Discharg e instructions Patient Education 01/15/2024 11:24:08 Kegel Exercises Kegel Exercises Kegel exercises can help strengthen your pelvic floor muscles. The pelvic floor is a group of muscles that support your rectum, small intestine, and bladder. In females, pelvic floor muscles also help support the uterus. These muscles help you control the flow of urine and stool (feces). Kegel exercises are painless and simple. They do not require any equipment. Your provider may suggest Kegel exercises to: Improve bladder and bowel control. Improve sexual response. Improve weak pelvic floor muscles after surgery to remove the uterus (hysterectomy) or after , in females. Improve weak pelvic floor muscles after prostate gland removal or surgery, in males. Kegel exercises involve squeezing your pelvic floor muscles. These are the same muscles you squeeze when you try to stop the flow of urine or keep from passing gas. The exercises can be done while sitting, standing, or lying down, but it is best to vary your position. Ask your health care provider which exercises are safe for you. Do exercises exactly as told by your health care provider and adjust them as directed. Do not begin these exercises until told by your health care provider. Exercises How to do Kegel exercises: 1.Squeeze your pelvic floor muscles tight. You should feel a tight lift in your rectal area. If you are a female, you should also feel a tightness in your vaginal area. Keep your stomach, buttocks, and legs relaxed. 2.Hold the muscles tight for up to 10 seconds. 3.Breathe normally. 4.Relax your muscles for up to 10 seconds. 5.Repeat as told by your health care [...] with your health care provider. Document Revised: 11/09/2021 Document Reviewed: 11/09/2021 [employer] Patient Education 2022 [employer]. Follow Up Care 02/20/2023 12:02:25 With:Gage JACOB, KEKE Carrera, URO Address: [address], [place] [address]- [phone] When: Unknown [facility] 01-15-2024 Note Patient Education Obstetrics and Gynecology Kegel Exercises Kegel exercises can help strengthen your pelvic floor muscles. The pelvic floor is a group of muscles that support your rectum, small intestine, and bladder. In females, pelvic floor muscles also help support the uterus. These muscles help you control the flow of urine and stool (feces). Kegel exercises are painless and simple. They do not require any equipment. Your provider may suggest Kegel exercises to: ? Improve bladder and bowel control. ? Improve sexual response. ? Improve weak pelvic floor muscles after surgery to remove the uterus (hysterectomy) or after , in females. ? Improve weak pelvic floor muscles after prostate gland removal or surgery, in males. Kegel exercises involve squeezing your pelvic floor muscles. These are the same muscles you squeeze when you try to stop the flow of urine or keep from passing gas. The exercises can be done while sitting, standing, or lying down, but it is best to vary your position. Ask your health care provider which exercises are safe for you. Do exercises exactly as told by your health care provider and adjust them as directed. Do not begin these exercises until told by your health care provider. Exercises How to do Kegel exercises: 1. Squeeze your pelvic floor muscles tight. You should feel a tight lift in your rectal area. If you are a female, you should also feel a tightness in your vaginal area. Keep your stomach, buttocks, and legs relaxed. 2. Hold the muscles tight for up to 10 seconds. 3. Breathe normally. 4. Relax your muscles for up to 10 seconds. 5. Repeat as told by your health [...] with your health care provider. Document Revised: 11/09/2021 Document Reviewed: 11/09/2021 [employer] Patient Education ? 2022 [employer]. [facility] 07-30-2023 Evaluation note Encounter Date Diagnosis Assessment Notes Jul, Acute non-recurrent maxillary sinusitis (ICD-10 - J01.00) [facility] Other 08-09-2023 Hospital Discharge instructions Patient Education 02/20/2023 09:58:29 Urinary Tract Infection, Adult, Eyjw-ae-Apiv Urinary Tract Infection, Adult A urinary tract infection (UTI) is an infection of any part of the urinary tract. The urinary tractincludes: The kidneys. The ureters. The bladder. The [...] Follow these instructions at home: Medicines Take fzni-ktv-calyccm and prescription medicines only as told by [...] a female. Use each tissue one time whenyou wipe. Drink enough fluid to keep your [...] provider. Document Revised: 02/10/2021 Document Reviewed: 02/10/2021 [employer] Patient Education 2022 [employer]. Follow Up Care 08/22/2022 12:56:32 With:Gage JACOB, KEKE Carrera, URO Address: When:Within 1 Year(s) [facility] 02-08-2023 Hospital Discharge instructions Patient Education 08/22/2022 12:51:50 Kegel Exercises [...] muscles, which are the same muscles you squeezewhen you try to stop the flow of urine or keep from passing gas. The exercises can be done while sitting, standing, or lying down, but it is best to vary your position. Exercises How to do Kegel exercises: 1.Squeeze your pelvic floor muscles tight. You should feel a tight lift in your rectal area. If youare a female, you should also feel a [...] 06/17/2013 Document Revised: 02/18/2019 Document Reviewed: 02/18/2019 [employer] Patient Education 2020 [employer]. Follow Up Care 06/13/2022 11:42:12 With:Gage JACOB, KEKE Carrera, URO Address: When: Unknown [facility] 05-24-2022 Hospital Discharge instructions Patient Education 12/05/2021 10:57:48 Renal Mass Renal Mass A renal mass is a growth in the kidney. A renal mass may be found while performing an MRI, CT scan,or ultrasound for other problems of the abdomen. [...] Treatment will depend on the cause of themass. Follow these instructions at home: What you need to do at home will depend on the cause of the mass. Follow the instructions that yourhealth care provider gives to you. In general: Take pbpy-qfv-aggzmtg and prescription medicines only as told by [...] be cancerous (malignant) and grow or spread quickly,or it may be harmless (benign). Renal masses may be found while performing an MRI, CT scan, or ultrasound for other problems of theabdomen. Your health care provider may recommend that [...] 01/26/2015 Document Revised: 08/07/2018 Document Reviewed: 08/07/2018 [employer] Patient Education [employer]. Follow Up Care 06/07/2021 13:20:37 With:Shahid Ontiveros MD, Mally Mendiola URO Address: [facility] [address], [place] [address]- When: Unknown [facility] evaluation + Plan note No data available for this section [facility] evaluation + Plan note Future Appointments Appointment Date:02/20/2023 10:45:00 AM Scheduled Provider:Katie Almonte MD Location:[facility] Appointment Type:URO Office Visit [facility] evaluation + Plan note Future Appointments Appointment Date:02/26/2024 10:45:00 AM Scheduled Provider:Katie Almonte MD Location:[facility] Appointment Type:URO Office Visit [facility] evaluation noteNo [employer] Other Evaluation note* Diagnosis Onset Date Resolution Status Menopausal and postmenopausal disorder acute Screening mammogram for breast cancer acute [facility] Work Phone: History general Narrative - Reported* Type Description Date Medical History OSTEOPENIA Medical History HYPERCALCEMIA Medical History hyperparathyroidism, primary Surgical History SPLEEN REMOVED 1989 Surgical History ORAL SURGERY Surgical History TUBILIGATION Surgical History TOTAL HYSTRECTOMY Surgical History OOPHRECTOMY Surgical History RT KNEE ARTHOSCOPIC Surgical History TWO DENTAL IMPLANTS Surgical History parathyroidectomy Surgical History cholecystectomy Surgical History cataracts, bilaterally Hospitalization History SEE ABOVE SURGERY Hospitalization History CHILD X'S 2 [facility] [employer] Other Hospital Discharge instructions No data [facility] for this section [facility] No data available for this section [facility] Summary Purpose Family History Relationship Condition Age at Onset Recorded Date/T radha father Unknown mother Unknown Advance Directives Advance Directive Response Recorded Date/ Time Advance Directives No January 23 10:46am Chief Complaint and Reason for Visit Chief Complaint wellness Reason for Visit Menopausal and postm enopausal disorder Screening mammogram for breast cancer Additional Source Comments INFORMATION SOURCE (unrecogn ized section and content) DATE CREATED AUTHOR 08/02/2022 [facility] DATE CREATED AUTHOR AUTHOR'S ORGANIZ ATION 01/16/2024 [facility] DATE CREATED AUTHOR AUTHOR'S ORGANIZ ATION 01/19/2024 [facility] Patient Care team informatio n (unrecognized section and content) Team Status: Active Member Role Status Dates Hafsa Knowles MD Primary Care Provider Active Team Status: Inactive Member Role Status Dates Hafsa Knowles MD Primary Care Provide r, Attending Provider Active Start: January 24, 2024 End: January 24, 2024 REASON FOR VISIT (unrecogniz ed section and content) messagesinus xr Goals (unrecognized section and content) Goals may be documented in a n alternate section FOR RECORDS PERTAINING TO PATIENTS WHO ARE [...] BE BASED ON THE PRIMARY CLINICAL RECORDS. [facility]. provides no warranty or guarantee of the accuracy or completeness of information in this document.
--- NOTE | 2024-02-12 14:00 | XR_ITS ---
[address] [address] Patient Name: BHAVESH MONTEIRO MRN: [id number] date: 1945 Sex: F Assigned Patient Location: [facility] Current Patient Location: Accession/Order Number: [id number] Exam Date: 02/12/2024 13:45 Report Date: 02/13/2024 05:48 At the request of: HARLAN KNOWLES Procedure: XR DEXA axial skeleton EXAMINATION: XR DEXA axial skeleton HISTORY: Menopausal And Postmenopausal Disorder COMPARISON: DEXA bone densitometry 11/15/2017 TECHNIQUE: Dual-energy X-ray absorptiometry (DXA) was performed. FINDINGS: SPINE ANALYSIS: Average bone mineral density is 1.094 g/cm2. T-score (standard deviation relative to young adult mean): -0.7 . +5.1% change since prior study. HIP ANALYSIS: Lowest bone mineral density is within the right femoral neck, 0.858 g/cm2. T-score (standard deviation relative to young adult mean): -1.3 . XR/XR DEXA axial skeleton IMPRESSION: World Health Organization Classification: Osteopenia - Moderate Fracture Risk FRAX: Cannot be calculated. Pharmacologic treatment recommendations * No uniform recommendation applies to all patients. Management plans must be individualized. * Consider initiating pharmacologic treatment in postmenopausal women and men >= 50 years of age who have the following: Primary fracture prevention: * T-score <= - 2.5 at the femoral neck, total hip, lumbar spine, 33% radius (some uncertainty with existing data) by DXA. * Low bone mass (osteopenia: T-score between - 1.0 and - 2.5) at the femoral neck or total hip by DXA with a 10-year hip fracture risk >= 3% or a 10-year major osteoporosis-related fracture risk >= 20% (i.e., clinical vertebral, hip, forearm, or proximal humerus) based on the [place]-adapted FRAXregistered model. Secondary fracture prevention: * Fracture of the hip or vertebra regardless of BMD [4, 5]. * Fracture of proximal humerus, pelvis, or distal forearm in persons with low bone mass (osteopenia: T-score between - 1.0 and - 2.5). The decision to treat should be individualized in persons with a fracture of the proximal humerus, pelvis, or distal forearm who do not have osteopenia or low BMD [12, 13]. Alphonse MS, Martín SL, Deepti KL, Kate EM, Jayla KG, AJ, Jailene ES. The clinician's guide to prevention and treatment of osteoporosis. Osteoporos Int. 2021;33(10):6526-9709. doi: 10.1007/x54753-781-55650-g. Epub 2021Nov 09. Erratum in: Osteoporos Int. 2021Feb 08;: PMID: [id number]; PMCID: [id number]. Electronically authenticated by: DARIO BESS Date: 02/13/2024 05:48
== END 2024-02-12 13:23 | disposition home or self-care (01) ==
LOC: MAMMO 13:23
PROVIDERS: PCP Family Medicine; Visit Provider Family Medicine
DX: Z12.31 Encounter for screening mammogram for malignant neoplasm of breast (principal); N95.9 Unspecified menopausal and perimenopausal disorder; M85.80 Other specified disorders of bone density and structure, unspecified site
CPT/HCPCS: 77063; 77067; 77080

== ENCOUNTER 2024-05-01 07:52 | Outpatient (OUT) | payer MEDICARE, OTHER, SELFPAY ==
--- OUTSIDE RECORDS SUMMARY | 2024-05-01 07:55 | XMS_ITS | CCD ---
Author Organization [facility] ion Partnership [facility] Care Team Providers Care Mobile Crane Operator Name Role Phone HAFSA KNOWLES Primary Care Physician SAMUEL, DR ANTWON Mahoney Admitting Unavailparadise BAKER, DR ANTWON Mahoney Attending Unavailparadise KNOWLES, DR HAFSA Mahoney Primary Care Unavailable SAMUEL, DR ANTWON Mahoney Consulting UnavailEMILEE Trimble Consulting Unavailable ALFONSO, BETZY Consulting Unavailable SHAHID ORTEGA, DR MALLY Mendiola Admitting Unavailparadise KEY JR, DR MALLY Mendiola Attending Unavailparadise KNOWLES, DR HAFSA Mahoney Primary Care Unavailable SHAHRIAR, DR DARIO Duarte Consulting Unavailable SHAHID ORTEGA, DR MALLY Mendiola Consulting Unavailabl maru KNOWLES, DR HAFSA Mahoney Admitting Unavailable KNOWLES, DR HAFSA Mahoney Attending Unavailable BENSON, DR HAFSA Mahoney Primary Care Unavailable SHAHRIAR, DR DARIO Duarte Consulting Unavailable SHAHID ORTEGA, DR MALLY Mendiola Consulting Unavailparadise BAKER, DR ANTWON Mahoney Admitting Unavailabl e SAMUEL, DR ANTWON Mahoney Attending Unavailparadise KNOWLES, DR HAFSA Mahoney Primary Care Unavailable SAMUEL, DR ANTWON Mahoney Consulting UnavailHafsa Hernandez Katie Almonte Attending Unavailable Katie Almonte Attending Unavailable Katie Almonte Attending Unavailable Katie Almonte Admitting Unavailable Johny Perdomo DO Attending UnavailJohny Wallace DO Attending Unavailparadise Knowles MD, Hafsa Ledezma Primary Care Unava ilable Allergies Allergy Classification Reported Allergen(s) Allergy Type Date of Onset Reaction(s) Facility (10 sources) Codeine; Translations: [codeine] Drug Allergy 12-26-19 16 nausea, Unknown, Hives [facility] (1 source) Codeine Drug Allergy [facility] (2 sources) Acetaminophen / HYDROcodone Drug Allergy Unknown [facility] Other (2 sources) Codeine Drug Allergy Unknown [facility] Other (2 sources) patient allergy list reviewed by nurse or physicia Propensity to adverse reactions 04-29-20 Comment:Done [facility] Other (2 sources) Allergies Reconciled Propensity to adverse reactions Unknown [facility] Other (2 sources) Acetaminophen Drug Allergy 01-24-20 [facility] (2 sources) HYDROcodone Drug Allergy 01-24-20 [facility] Medications Current Medications Medication Drug Class(es) Dates Sig (Normalized) Sig (Original) biotin 5 mg oral capsule (9 sources) Start: 01-21-2024 take 5 mg by mouth once daily Biotin Active 5 MG PO Daily January 21, 2024 12:00am Start: 10-25-2020 biotin 5000 mc g oral capsule Refills(s) 0 Start Date: 10/25/20 Status: Ordered take 1 capsule by [facility] once daily Biotin 5000 5 MG 1 capsule Orally Once a day Active cephalexin 500 mg oral capsule (1 source) Cephalosporin Antibacterial Start: 12-05-2021 take 1 capsule by mouth every twelve hours Keflex 500 mg Cap 500 mg = 1 cap(s), Oral, q12hr, # 6 cap(s), Refills(s) 0, Pharmacy: [id number], 168, cm, 12/05/21 10:16:00 EDT, Height/Length Dosing, 97.5, kg, 12/05/21 10:16:00 EDT, Weight Dosing Start Date: 12/05/21 Status: Ordered cholecalciferol 0.025 mg oral capsule (2 sources) Vitamin D Start: 01-21-2024 take 25 ug by mouth once daily Cholecalciferol (Vitamin D3) Active 25 MCG PO Daily January 21, 2024 12:00am ciprofloxacin 500 mg oral tablet (2 sources) Quinolone Antimicrobial Start: 07-23-2023 take 1 tablet by mouth every twelve hours Ciprofloxacin HCl 500 MG 1 tablet Orally every 12 hrs for 7 days Jul, Active estradiol 0.1 mg/ml vaginal cream (6 sources) Estrogen Start: 01-24-2024 Estradiol (Estrace) 0.01 % (0.1 mg/gram) cream Active 1 APPLICATOR VAGINAL Daily January 24, 2024 12:00am for 14 days Start: 01-15-2024 Estrace 0.1 mg /g Cream See Instructions, 42.5 gm, Refill(s) 6, Apply pea-sized amound around the opening of the urethra 3 times per week for 1 month then 2 times per week after for maintenance., [facility], 168, cm, 01/15/24 10:54:00 EDT, Height/Length Dosing, 96, kg, 01/15/24 10:54:00 EDT, Weight Dosing Start Date: 01/15/24 Status: Ordered Start: 08-22-2022 Estrace 0.1 mg /g Cream See Instructions, 42.5 gm, Refill(s) 6, Apply pea-sized amound around the opening of the urethra 3 times per week for 1 month then 2 times per week after for maintenance., [facility], 168, cm, 08/22/22 11:52:00 EST, Height/Length Dosin... Start Date: 08/22/22 Status: Ordered fexofenadine hydrochloride 60 mg oral tablet (7 sources) Histamine-1 Receptor Antagonist Start: 01-24-2024 take 1 tablet by mouth twice daily Fexofenadine (Mary Allergy) 60 mg tablet Active 60 MG PO Twice daily January 24, 2024 12:00am Start: 10-25-2020 Mary Oral, Refills(s) 0 Start Date: 10/25/20 Status: Ordered nitrofurantoin, macrocrystals 50 mg oral capsule (5 sources) Nitrofuran Antibacterial Start: 03-24-2024 take 1 capsule by mouth once daily at mealtime Nitrofurantoin Macrocrystal Active 0 .ROUTE .COMPLEX March 24, 2024 8:39am TAKE 1 CAPSULE BY MOUTH ONCE DAILY * TAKE WITH FOOD or a meal* Start: 01-24-2024 End: 03-24-2024 take 50 mg by mouth once daily at mealtime Nitrofurantoin Macrocrystal Discontinued 50 MG PO Daily January 24, 2024 11:34am March 24, 2024 8:39am must administer with a meal/food Start: 01-24-2024 [...] omeprazole 40 mg delayed release oral capsule (4 sources) Proton Pump Inhibitor Start: 01-21-2024 End: 01-24-2024 take 40 mg by mouth once daily Omeprazole Discontinued 40 MG PO Daily January 21, 2024 12:00am January 24, 2024 11:02am Start: 09-05-2020 take 1 capsule by [facility] once daily Omeprazole 40 MG Omeprazole [...] of urination] Onset: 08-22-2022 Episodic Menopausal disorders (12 sources) Atrophic vaginitis; Translations: [Postmenopausal atrophic vaginitis] [...] conditions (not mental disorders or infectious disease) (5 sources) Elevated liver enzymes level; Translations: [Other [...] R1: This test was performed at: [facility], [address] [place] [address], [id number]- , , [facility] Comment on above: Performed By: #### [id number] #### [facility] [address] [place] [id number] Ambulatory Visit Summaryon 0 01-15-2024 Ambulatory Visit Summary Ambulatory Visit Summary DAMASO KAN :1945 Visit Date:01/15/2024 Ambulatory Visit Instructions Your Diagnosis Asymptomatic bacteriuria Urgency of urination Vaginal atrophy Renal cyst Your Care Team Attending Physician - Gage JACOB, Katie Arteaga Primary Care Physician - HAFSA KNOWLES MD [...] the Following Appointments Follow Up with Gage JACOB, Katie Arteaga, URL, URO When: Where: [address] [place] [address] [phone] Medications What How Much When Instructions Unchanged estradiol topical (Estrace 0.1 mg/ g Cream) See instructions Apply pea-sized amound around the opening of the urethra 3 times per week for 1 month then 2 times per week after for maintenance. Pickup at [id number] Unchanged biotin (biotin 5000 mcg oral capsule) Contact prescribing physician if questions or concerns Unchanged cholecalciferol (Vitamin D3 5000 intl units oral capsule) 1 Capsules By Mouth Every day with food Contact prescribing physician if questions or concerns Unchanged fexofenadine (Mary) By Mouth Contact prescribing physician if questions or concerns Pharmacy Information [facility]: [address] [place] [phone] Allergies codeine (nausea) Problems Ongoing - Any [...] intended to (more content not included)... Normal [facility] Urology Office/Clinic Noteon 01-15-2024 Urology Office/Clinic Note [...] time. [3] Follow-up With When Contact Information Katie Almonte MD, URL, URO [address], [place] [address] [phone] Additional Instructions: pt's choice on when to schedule f/u Patient Education Kegel Janette I, Yuliana Olson, personally scribed for Dr. Almonte on 01/15/2024 11:27:08. . Documentation recorded by the scribYuliana mahoney, accurately reflects the services(s) I performed and decisions made by me. Authenticated by Dr. Almonte on 01/15/2024 23:28:03. Problem List/Past Medical History Ongoing Asymptomatic bacteriuria Calculus of gallbladder Hyperparathyroidism Osteopeni (more content not included)... Normal [facility] Comment on above: Result Comment: Elec tronically Signed By: Katie Almonte MD\.br\Date and Time Signed: 01/15/24 23:28 EDT\.br\Electronically Co-Signed By: Yuliana Olson\.br\Date and Time Co-Signed: 01/15/24 11:27 EDT [place] 02-21-2023 Screens [id number] D:127 Normal [facility] Patient Educationon 02-21-20 Patient Education Obstetrics and [...] these instructions at home: Medicines ? Take qwea-mif-skielnw and prescription medicines only as told by [...] provider. Document Revised: 02/10/2021 Document Reviewed: 02/10/2021 [employer] Patient Education ? 2022 Smart GPS Backpack. [facility] Urology Office/Clinic Noteon 02-20-2023 Urology Office/Clinic [...] medical exam (more content not included)... Normal [facility] Comment on above: Result Comment: Elec tronically Signed By: Katie Almonte MD.br\Date and Time Signed: 02/20/23 12:03 EDT\.br\Electronically Co-Signed By: Sepideh Perez.br\Date and Time Co-Signed: 02/20/23 11:49 EDT Covid-19 PCR (CVDTBH)on 07-15 SARS-CoV-2 (COVID-19) RNA AZUL+probe Ql (Unsp spec) Not detected Normal NOT DETECTED [facility] Comment on above: Result Comment: This test is not yet approved or cleared by the [place] FDA. When there are no FDA-approved or cleared tests available, and other criteria are met, FDA can make tests available under an emergency access mechanism called an Emergency Use Authorization (EUA). The EUA for this test is supported by the [place] of Health and Human Service's (HHS's) declaration [...] SARS-CoV-2. Performed By: #### C VDTBH #### [facility] [address] [place] [address] Dr. Manjula Arzate CREATININEon 06-13-2022 Creatinine [Mass/Vol] 0.98 mg/dL Normal 0.55-1.02 [facility] Comment on above: Performed By: #### C JESUS #### [facility] [address] [place] [address] Dr. Manjula Arzate EGFR-AF WELSH >60 Normal >=60 [facility] Comment on above: Performed By: #### C JESUS #### [facility] [address] [place] [address] Dr. Manjula Arzate EGFR-NON AF WELSH 55 mL/min/1.73m2 Critically low >=60 [facility] Comment on above: Performed By: #### C JESUS #### [facility] [address] [place] [address] ABD/PELV W CONon [...] by: DARIO BESS Date: 2022-06-13 17:40 Normal [facility] CT ABD/PELVIS WO CONon 11-27 CT [...] by: DARIO BESS Date: 2021-11-27 10:41 Normal [facility] Vital Signs Date Time Vital Sign Value Performing Clinician Facility 04-29-2024 08:0400 Body height 165.1 cm [facility] 04-29-2024 08:[id number] Body mass index (BMI) [Ratio] 33.8 kg/m2 [facility] 04-29-2024 08:0400 Body weight 92.3 kg [facility] 04-29-2024 08:21-0400 Diastolic blood pressure 82 mm[Hg] [facility] 04-29-2024 08:21-0400 Heart rate 74 /min [facility] 04-29-2024 08:0400 Respiratory rate 16 /min [facility] 04-29-2024 08:21-0400 SaO2% (BldA) [Mass fraction] 96 % [facility] 04-29-2024 08:21-0400 Systolic blood pressure 120 mm[Hg] [facility] 01-24-2024 10:54-0400 Body height 165.1 cm [facility] 01-24-2024 10:54-0400 Body mass index (BMI) [Ratio] 35.6 kg/m2 [facility] 01-24-2024 10:54-0400 Body weight 97.06 kg [facility] 01-24-2024 10:54-0400 Diastolic blood pressure 81 mm[Hg] [facility] 01-24-2024 10:54-0400 Heart rate 71 /min [facility] 01-24-2024 10:54-0400 Systolic blood pressure 121 mm[Hg] [facility] 01-15-2024 10:37-0400 Blood Pressure Location Katie Lue [facility] 01-15-2024 10:37-0400 Body temperature 97.88 [degF] Katie Lue [facility] 01-15-2024 10:37-0400 Diastolic blood pressure 78 mm[Hg] Katie Lue [facility] 01-15-2024 10:37-0400 Heart rate 71 /min Katie Lue [facility] 01-15-2024 10:37-0400 Systolic blood pressure 132 mm[Hg] Katie Lue [facility] 02-20-2023 10:53-0400 Blood Pressure Location Katie Lue [facility] 02-20-2023 10:53-0400 Diastolic blood pressure 76 mm[Hg] Katie Lue [facility] 02-20-2023 10:53-0400 Heart rate 68 /min Katie Lue [facility] 02-20-2023 10:53-0400 Respiratory rate 16 /min Katie Lue [facility] 02-20-2023 10:53-0400 Systolic blood pressure 130 mm[Hg] Katie Lue [facility] 08-22-2022 11:50-0500 Blood Pressure Location Katie Lue [facility] 08-22-2022 11:50-0500 Diastolic blood pressure 78 mm[Hg] Katie Lue [facility] 08-22-2022 11:50-0500 Heart rate 68 /min Katie Lue [facility] 08-22-2022 11:50-0500 Respiratory rate 16 /min Katie Lue [facility] 08-22-2022 11:50-0500 Systolic blood pressure 132 mm[Hg] Katie Lue [facility] 12-05-2021 10:33-0400 Diastolic blood pressure 81 mm[Hg] Mally Key Jr. [facility] 12-05-2021 10:33-0400 Mean blood pressure 101 mm[Hg] Mally Key Jr. [facility] 12-05-2021 10:33-0400 Systolic blood pressure 142 mm[Hg] Mally Key Jr. [facility] 12-05-2021 10:12-0400 Blood Pressure Location Mally Key Jr. [facility] 12-05-2021 10:12-0400 Diastolic blood pressure 97 mm[Hg] Mally Key Jr. [facility] 12-05-2021 10:12-0400 Heart rate 87 /min Mally Key Jr. [facility] 12-05-2021 10:12-0400 Respiratory rate 16 /min Mally Key Jr. [facility] 12-05-2021 10:12-0400 Systolic blood pressure 163 mm[Hg] Mally Key Jr. [facility] Encounters Encounter Date Encounter Type Care Provider Facility Start: 04-29-2024 End: 04-29-2024 ambulatory [facility] Work Phone: Start: 04-29-2024 End: 04-29-2024 Patient encounter procedure [facility] Work Phone: Start: 04-10-2024 End: 04-10-2024 ambulatory Johny Perdomo DO Facility:[facility] Start: 03-20-2024 ambulatory Johny Perdomo DO Fa cility:[facility] Start: 02-05-2024 Patient encounter procedure [facility] Start: 01-24-2024 End: 01-24-2024 ambulatory [facility] Work Phone: Start: 01-24-2024 End: 01-24-2024 Patient encounter procedure [facility] Work Phone: Start: 01-15-2024 End: 01-15-2024 ambulatory Katie Mervin. Lue Facility:[facility] Start: 01-15-2024 End: 01-15-2024 Lab Drop off Katie M. Lue [facility] Start: 01-15-2024 End: 01-15-2024 ambulatory Katie M. Lue Facility:[facility] Start: 01-15-2024 End: 01-15-2024 Patient encounter procedure Katie Jeffries. Lue [facility] Start: 08-01-2023 End: 08-01-2023 ambulatory Hafsa Knowles Other [facility] Other Start: 08-01-2023 Telephone encounter Hafsa [facility] Start: 07-30-2023 End: 07-30-2023 ambulatory Hafsa Knowles Other [facility] Other Start: 07-30-2023 Telephone encounter [facility] Start: 02-20-2023 End: 02-20-2023 ambulatory Katie M. Lue Facility:[facility] Start: 02-20-2023 End: 02-20-2023 Patient encounter procedure Katie M. Lue [facility] Start: 08-22-2022 End: 08-22-2022 Patient encounter procedure Katie M. Lue [facility] Start: 08-01-2022 End: 08-01-[address] ANTWON BAKER Facility:[facility] Start: 07-30-2022 End: 07-31-[address] ANTWON BAKER Facility:[facility] Start: 07-12-2022 Adult health examination Hafsa Knowles Other [facility] Other Start: 06-13-2022 End: 06-14-[address] HAFSA KNOWLES Facility:[facility] Start: 12-05-2021 End: 12-05-2021 Patient encounter procedure Mally Key Jr. [facility] Start: 11-27-2021 End: 11-28-[address] MALLY [...] Mally Key Jr. Ligation of fallopian tube Denae Key Jr. Screening for malign ant neoplasm of breast Hafsa Knowles Other Plan of Treatment Date Care Activity Detail Author DXA Skeletal system. axial Views for bone density [facility] enter MG Breast - bilateral Screening [facility] Immunizations Immunization Date Immunization Notes Care Provider Fa cility 04-10-2022 SARS-CoV-2 (COVID-19 ) [id number] Katie Lue [facility] 04-11-2021 SARS-CoV-2 (COVID-19 ) mRNA BNT-162b2 vax Katie Lue [facility] 02-15-2021 zoster vaccine recombinant Katie Lue [facility] 11-30-2020 zoster vaccine recombinant Katie Lue [facility] 08-30-2020 SARS-CoV-2 (COVID-19 ) mRNA BNT-162b2 vax Katie Lue [facility] Comment on above: Result Comment: 2022: [id number] 08-09-2020 SARS-CoV-2 (COVID-19 ) mRNA BNT-162b2 vax Katie Lue [facility] Comment on above: Result Comment: 2022: [id number] 05-16-2020 influenza virus vaccine, split virus (incl. purified surface antigen) Hafsa Knowles Other [facility] Other 05-16-2020 influenza virus vaccine, unspecified formulation [facility] 04-26-2020 influenza virus vaccine, unspecified formulation Katie Lue [facility] 12-16-2018 pneumococcal polysaccharide vaccine, 23 valent Hafsa Knowles Other [facility] 11-07-2017 pneumococcal conjuga te vaccine, 13 valent Mally Key Jr. [facility] 11-07-2017 pneumococcal Conjuga te, unspecified formulation; Translations: [Need for prophylactic vaccination against Streptococcus pneumoniae (pneumococcus)] Hafsa Knowles Other [facility] Other 10-13-2017 pneumococcal polysaccharide vaccine, 23 valent Katie Almonte [facility] 04-14-2017 influenza virus vaccine, unspecified formulation Katie Alomnte [facility] Payers Date Payer Category Payer Medicare 2012 Unknown 1957 Medicare [id number] 1957 Unknown [id number] 1945 Unknown [id number] 2.16.84 [id number] 1945 Unknown [id number] 2.16.84 [id number] 1945 Unknown [id number] 2.16.84 [id number] 1945 Unknown [id number] 2.16.84 [id number] 1945 Unknown [id number] 2.16.8 [id number] 1945 Unknown [id number] 2.16.8 [id number] 1945 Unknown [id number] 2.16.8 [id number] 1945 Unknown [id number] 2.16. [id number] Medicare Medicare [id number] Social History Date Type Detail Facility Start: 12-05-2021 End: 07-23-2023 Tobacco smoking status Never smoked tobacco (finding) [facility] Sex Assigned At Female [facility] Tobacco smoking status Never [facility] Start: 1945 Sex Assigned At Female [facility] Functional Status Date Assessment Result Facility 01-15-2024 Functional Status N/A [facility] 02-20-2023 Functional Status N/A [facility] 08-22-2022 Functional Status N/A [facility] Clinical Notes 12-05-2021 to 04-10-2024 Note Date & Type Note Facility 04-10-2024 Note Procedure: MRI of th e right knee without contrast. Sequences: Sagittal T2 (Key and Nephew Protocol). Diagnostic quality: Limited, single sequence. Clinical information: 78-year-old female with osteoarthrosis (OA) of the right knee. Comparison: None. Findings: Menisci, anterior and posterior horns: Complex tear posterior horn medial and lateral menisci. High-grade degeneration with near complete substance loss of the anterior horn lateral meniscus. Cruciate ligaments: No gross tear. Quadriceps mechanism/patellar tendon: No gross tear. Joints: Severe low compartment and moderate patellofemoral and medial compartment degenerative joint disease (DJD). Small joint effusion. Bones: No gross acute fracture, dislocation, or focal destruction. Soft tissues: Grossly unremarkable. IMPRESSION: Moderate to severe DJD. Procedure: Standing AP views of the lower extremities from the iliac crests through the sumanth. Clinical Information: 78-year-old female with right knee OA. Comparison: None. Findings: Bones: No gross acute fracture, dislocation, or aggressive abnormality. Joints: Moderate medial compartment joint space narrowing. Right femur length: 48.5 cm. Right lower extremity length: 86.7 cm. Right tibiofemoral angle: 13 degrees valgus. Left femur length: 48.2 cm. Left lower extremity length: 86.4 cm. Left tibiofemoral angle: 10 degrees valgus. Soft tissues: Superficial varicose veins of bilateral extremities. IMPRESSION: Limb lengths and tibiofemoral angles as above. Final Dictated by: Franco Hutton MD Dictated DT/TM: 04/10/2024 3:32 pm Signed by: Franco Hutton MD Signed (Electronic Signature): 04/10/2024 3:44 pm (If Report Is Signed, Electronically Signed in Other Vendor System) [facility] 04-10-2024 Note Procedure: MRI of th e right knee without contrast. Sequences: Sagittal T2 (Key and Nephew Protocol). Diagnostic quality: Limited, single sequence. Clinical information: 78-year-old female with osteoarthrosis (OA) of the right knee. Comparison: None. Findings: Menisci, anterior and posterior horns: Complex tear posterior horn medial and lateral menisci. High-grade degeneration with near complete substance loss of the anterior horn lateral meniscus. Cruciate ligaments: No gross tear. Quadriceps mechanism/patellar tendon: No gross tear. Joints: Severe low compartment and moderate patellofemoral and medial compartment degenerative joint disease (DJD). Small joint effusion. Bones: No gross acute fracture, dislocation, or focal destruction. Soft tissues: Grossly unremarkable. IMPRESSION: Moderate to severe DJD. Procedure: Standing AP views of the lower extremities from the iliac crests through the sumanth. Clinical Information: 78-year-old female with right knee OA. Comparison: None. Findings: Bones: No gross acute fracture, dislocation, or aggressive abnormality. Joints: Moderate medial compartment joint space narrowing. Right femur length: 48.5 cm. Right lower extremity length: 86.7 cm. Right tibiofemoral angle: 13 degrees valgus. Left femur length: 48.2 cm. Left lower extremity length: 86.4 cm. Left tibiofemoral angle: 10 degrees valgus. Soft tissues: Superficial varicose veins of bilateral extremities. IMPRESSION: Limb lengths and tibiofemoral angles as above. Final Dictated by: Franco Hutton MD Dictated DT/TM: 04/10/2024 3:32 pm Signed by: Franco Hutton MD Signed (Electronic Signature): 04/10/2024 3:44 pm (If Report Is Signed, Electronically Signed in Other Vendor System) [facility] 01-15-2024 Evaluation + Plan note Diagnostic Tests PendingUrine Culture 01/15/24 [facility] 01-15-2024 Hospital Discharg e instructions Patient Education [...] provider. Document Revised: 11/09/2021 Document Reviewed: 11/09/2021 [employer] Patient Education 2022 Smart GPS Backpack. Follow Up Care 02/20/2023 12:02:25 With:Gage JACOB, Katie Arteaga, URL, URO Address: [address], [place] [phone] When: Unknown [facility] 01-15-2024 Note Patient Education Obstetrics and Gynecology [...] provider. Document Revised: 11/09/2021 Document Reviewed: 11/09/2021 [employer] Patient Education ? 2022 Smart GPS Backpack. [facility] 07-30-2023 Evaluation note Encounter Date Diagnosis Assessment Notes Jul, Acute non-recurrent maxillary sinusitis (ICD-10 - J01.00) [facility] Other 08-09-2023 Hospital Discharge instructions Patient Education 02/20/2023 09:58:29 Urinary Tract Infection, Adult, Uwao-mk-Zzew Urinary Tract Infection, Adult A urinary tract [...] Follow these instructions at home: Medicines Take craz-rjh-zgoaefe and prescription medicines only as told by [...] provider. Document Revised: 02/10/2021 Document Reviewed: 02/10/2021 [employer] Patient Education 2022 Smart GPS Backpack. Follow Up Care 08/22/2022 12:56:32 With:Gage JACOB, KEKE Carrera, URO Address: When:Within 1 Year(s) [facility] 02-08-2023 Hospital Discharge instructions Patient Education 08/22/2022 [...] 06/17/2013 Document Revised: 02/18/2019 Document Reviewed: 02/18/2019 [employer] Patient Education 2020 Smart GPS Backpack. Follow Up Care 06/13/2022 11:42:12 With:Gage JACOB, KEKE Carrera, URO Address: When: Unknown [facility] 05-24-2022 Hospital Discharge instructions Patient Education 12/05/2021 [...] provider gives to you. In general: Take kyfo-ddi-gwavzlk and prescription medicines only as told by [...] 01/26/2015 Document Revised: 08/07/2018 Document Reviewed: 08/07/2018 [employer] Patient Education 2020 Smart GPS Backpack. Follow Up Care 06/07/2021 13:20:37 With:Shahid Ontiveros MD, Mally Mendiola, URO Address: [facility] [address], [place] [address]- When: Unknown [facility] evaluation + Plan note No data available for this section [facility] evaluation + Plan note Future Appointments Appointment Date:02/20/2023 10:45:00 AM Scheduled Provider:Katie Almonte MD Location:[facility] Appointment Type:URO Office Visit [facility] evaluation + Plan note Future Appointments Appointment Date:02/26/2024 10:45:00 AM Scheduled Provider:Katie Almonte MD Location:[facility] Appointment Type:URO Office Visit [facility] evaluation noteNo InformationNort [employer] Other Evaluation note* Diagnosis Onset Date Resolution Status Menopausal and postmenopausal disorder acute Screening mammogram for breast cancer acute [facility] Work Phone: Evaluation noteNo assessment information available [facility] Work Phone: History general Narrative - Reported* [...] ABOVE SURGERY Hospitalization History CHILD X'S 2 [facility] Other Hospital Discharge instructions No data available for this section [facility] No data available for this section [facility] Summary Purpose Family History Relationship Condition Age at Onset Recorded Date/T radha father Unknown mother Unknown Advance Directives Advance Directive Response Recorded Date/ Time Advance Directives No January 23 10:46am Chief Complaint and Reason for Visit Chief Complaint wellness Reason for Visit Menopausal and postm enopausal disorder Screening mammogram for breast cancer Chief Complaint Pre-surgical Cle[place] ce Additional Source Comments INFORMATION SOURCE (unrecogn ized section and content) DATE CREATED AUTHOR 08/02/2022 [facility] DATE CREATED AUTHOR AUTHOR'S ORGANIZ ATION 01/16/2024 [facility] DATE CREATED AUTHOR AUTHOR'S ORGANIZ ATION 01/19/2024 [facility] DATE CREATED AUTHOR AUTHOR'S ORGANIZ ATION 04/11/2024 [facility] Patient Care team informatio n (unrecognized section and content) Team Status: Active Member Role Status Dates Hafsa Knowles MD Primary Care Provider Active Team Status: Inactive Member Role Status Dates Hafsa Knowles MD Primary Care Provide r, Attending Provider Active Start: January 24, 2024 End: January 24, 2024 Team Status: Inactive Member Role Status Dates Hafsa Knowles MD Primary Care Provide r, Attending Provider Active Start: April 29, 2024 End: April 29, 2024 REASON FOR VISIT (unrecogniz ed section [...] BE BASED ON THE PRIMARY CLINICAL RECORDS. [facility] [employer] [facility]. provides no warranty or guarantee of the accuracy or completeness of information in this document.
--- NOTE | 2024-05-01 07:59 | ECG_ITS ---
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
--- NOTE | 2024-05-01 09:07 | XR_ITS ---
The [address] [address] Patient Name: BHAVESH MONTEIRO MRN: [id number] date: 1945 Sex: F Assigned Patient Location: [place] Current Patient Location: Accession/Order Number: [id number] Exam Date: 05/01/2024 09:00 Report Date: 05/04/2024 11:16 At the request of: FEMI MAGUIRE Procedure: XR chest 2V EXAMINATION: XR chest 2V HISTORY: Preop exam COMPARISON: No relevant comparison available. TECHNIQUE: PA and lateral FINDINGS: LUNGS: No significant pulmonary parenchymal abnormalities. VASCULATURE: No increased pulmonary vasculature. PLEURA: No pneumothorax, effusion, or pleural thickening. CARDIAC: No cardiomegaly or cardiac silhouette abnormality. MEDIASTINUM: No visible mass or adenopathy. BONES: No fracture or visible bone lesion. OTHER: Negative. XR/XR chest 2V IMPRESSION: No acute cardiopulmonary process Electronically authenticated by: CARLO RICHARDSON Date: 05/04/2024 11:16
[2024-05-01 09:16] LABS: Basophils Percent Auto 0.7 % (0.2-2.0); Eosinophils Absolute Auto 0.2 10^3/uL (0.0-0.7); Eosinophils Percent Auto 3.8 % (0.9-7.0); Hematocrit 39.1 % (36.0-48.0); Hemoglobin 13.1 g/dL (12.0-16.0); Immature Granulocytes Abs Auto 0.01 10^3/uL (0.00-0.03); Immature Granulocytes Pct Auto 0.2 % (0.0-0.5); Lymphocytes Percent Auto 43.8 % (20.5-60.0); Mean Corpuscular HGB Conc 33.5 g/dL (29.9-35.2); Mean Corpuscular Hemoglobin 34.5 pg (26.7-34.0); Mean Corpuscular Volume 102.9 fL (81.0-99.0); Mean Platelet Volume 12.6 fL (9.5-13.5); Monocytes Absolute Auto 0.6 10^3/uL (0.3-0.8); Monocytes Percent Auto 13.8 % (1.7-12.0); Neutrophils Absolute Auto 1.7 10^3/uL (1.4-6.5); Neutrophils Percent Auto 37.7 % (43.0-75.0); Platelet Count 266 10^3/uL (150-450); Red Cell Distribution Width 14.4 % (11.0-15.0); White Blood Count 4.5 10^3/uL (4.0-11.0)
[2024-05-01 09:24] LABS: Bilirubin Urine NEGATIVE (NEGATIVE); Blood Urine NEGATIVE (NEGATIVE); Clarity Urine CLEAR (CLEAR); Color Urine YELLOW (YELLOW); Glucose Urine UA NEGATIVE (NEGATIVE); Ketones Urine NEGATIVE (NEGATIVE); Leukocyte Esterase Urine NEGATIVE (NEGATIVE); Nitrite Urine NEGATIVE (NEGATIVE); Protein Urine NEGATIVE (NEG/TRACE); Urobilinogen Urine 0.2 EU/dL (0.2-1.0)
[2024-05-01 09:26] LABS: Urine Microscopic Indicated NO
[2024-05-01 10:34] LABS: Anion Gap 13.9; Calcium 9.1 mg/dL (8.5-10.1); Carbon Dioxide 25.8 mmol/L (21.0-32.0); Chloride 107 mmol/L (98-107); Estimated GFR (African America >60 (>=60 mL/min/1.73m^2); Estimated GFR (Non-African Ame 51 (>=60 mL/min/1.73m^2); Glucose 84 mg/dL (74-106); Potassium 3.7 mmol/L (3.5-5.1); Sodium 143 mmol/L (136-145)
[2024-05-01 10:55] LABS: Alanine Aminotransferase 44 U/L (14-59); Albumin Globulin Ratio 0.7; Albumin Level 2.9 g/dL (3.4-5.0); Alkaline Phosphatase 196 U/L (46-116); Aspartate Amino Transferase 51 U/L (15-37); Bilirubin Direct 0.2 mg/dL (0.0-0.2); Bilirubin Total 0.7 mg/dL (0.2-1.0); Globulin 4.3 g/dL; Total Protein 7.2 g/dL (6.4-8.2)
[2024-05-01 11:15] LABS: INR 1.07; Partial Thromboplastin Time 30.5 sec (22.3-36.2); Prothrombin Time 11.3 sec (9.0-11.6)
== END 2024-05-01 07:53 | disposition home or self-care (01) ==
LOC: PST 07:52
PROVIDERS: PCP Family Medicine; Visit Provider Student in an Organized Health Care Education/Training Program
DX: Z01.810 Encounter for preprocedural cardiovascular examination (principal); Z01.812 Encounter for preprocedural laboratory examination; M17.11 Unilateral primary osteoarthritis, right knee; M21.161 Varus deformity, not elsewhere classified, right knee
CPT/HCPCS: 71046; 80048; 80076; 81003; 85025; 85610; 85730; 86850; 86900; 86901; 87081; 93005

== ENCOUNTER 2024-05-02 09:20 | Emergency (ER) | payer MEDICARE, OTHER, SELFPAY ==
[2024-05-02 09:27] VITALS: BP 171/98; PULSE 84; TEMP 36.6; O2SAT 96; BMI 32.8
--- OUTSIDE RECORDS SUMMARY | 2024-05-02 09:28 | XMS_ITS | CCD ---
Author Organization [facility] ion Partnership [facility] Care Team Providers Care Commodities Clerk Name Role Phone HAFSA KNOWLES Primary Care [...] 16 nausea, Unknown, Hives [facility] (1 source) Codeine Drug Allergy [facility] Repository (2 sources) Acetaminophen / HYDROcodone Drug Allergy Unknown [facility] Other (2 sources) Codeine Drug Allergy Unknown [facility] Other (2 sources) patient allergy list reviewed by nurse or physicia Propensity to adverse reactions 04-29-20 Comment:Done [facility] Other (2 sources) Allergies Reconciled Propensity to adverse reactions Unknown [facility] Other (2 sources) Acetaminophen Drug Allergy 01-24-20 [facility] (2 sources) HYDROcodone Drug Allergy 01-24-20 [facility] Medications Current Medications Medication Drug Class(es) Dates Sig (Normalized) Sig (Original) biotin 5 mg oral capsule (9 sources) Start: 01-21-2024 take 5 mg by mouth once daily Biotin Active 5 MG PO Daily January 21, 2024 12:00am Start: 10-25-2020 biotin 5000 mc g oral capsule Refills(s) 0 Start Date: 10/25/20 Status: Ordered take 1 capsule by [facility] once daily Biotin 5000 5 MG 1 capsule Orally Once a day Active cephalexin 500 mg oral capsule (1 source) Cephalosporin Antibacterial Start: 12-05-2021 take 1 capsule by mouth every twelve hours Keflex 500 mg Cap 500 mg = 1 cap(s), Oral, q12hr, # 6 cap(s), Refills(s) 0, Pharmacy: [facility], 168, cm, 12/05/21 10:16:00 EDT, Height/Length [...] 2 times per week after for maintenance., [facility], 168, cm, 01/15/24 10:54:00 EDT, Height/Length Dosing, 96, kg, 01/15/24 10:54:00 EDT, Weight Dosing Start Date: 01/15/24 Status: Ordered Start: 08-22-2022 Estrace 0.1 mg /g Cream See Instructions, 42.5 gm, Refill(s) 6, Apply pea-sized amound around the opening of the urethra 3 times per week for 1 month then 2 times per week after for maintenance., [facility], 168, cm, 08/22/22 11:52:00 EST, Height/Length [...] 11:02am Start: 09-05-2020 take 1 capsule by [facility] once daily Omeprazole 40 MG [...] Locations R1: This test was performed at: [facility], [address] [place] [address], [address]- , , [facility] Comment on above: Performed By: #### [id number] #### [facility] [address] [place] [id number] Ambulatory Visit Summaryon 0 01-15-2024 Ambulatory Visit [...] URL, URO When: Where: [address] [place] [address]- [phone] Medications What How Much When Instructions Unchanged estradiol topical (Estrace 0.1 mg/ g Cream) See instructions Apply pea-sized amound around the opening of the urethra 3 times per week for 1 month then 2 times per week after for maintenance. Pickup at [facility] Unchanged biotin (biotin 5000 mcg oral capsule) Contact prescribing physician if questions or concerns Unchanged cholecalciferol (Vitamin D3 5000 intl units oral capsule) 1 Capsules By Mouth Every day with food Contact prescribing physician if questions or concerns Unchanged fexofenadine (Mary) By Mouth Contact prescribing physician if questions or concerns Pharmacy Information [facility]: [address] [place], [place] [phone] Allergies codeine (nausea) Problems Ongoing - Any [...] intended to (more content not included)... Normal [facility] Urology Office/Clinic Noteon 01-15-2024 Urology Office/Clinic Note [...] Contact Information Katie Almonte MD, URL, URO [address], [place] [phone] Additional Instructions: pt's choice on when to [...] Hyperparathyroidism Osteopeni (more content not included)... Normal [facility] Comment on above: Result Comment: Elec tronically Signed By: Katie Almonte MD\.br\Date and Time Signed: 01/15/24 23:28 EDT\.br\Electronically Co-Signed By: Yuliana Olson\.br\Date and Time Co-Signed: 01/15/24 11:27 EDT [place] 02-21-2023 Screens [id number] D:127 Normal [facility] Patient Educationon 02-21-20 Patient Education Obstetrics and [...] these instructions at home: Medicines ? Take ajbo-dpf-talhbma and prescription medicines only as told by [...] provider. Document Revised: 02/10/2021 Document Reviewed: 02/10/2021 [employer] Patient Education ? 2022 to be. [facility] Urology Office/Clinic Noteon 02-20-2023 Urology [...] medical exam (more content not included)... Normal [facility] Comment on above: Result Comment: Elec tronically Signed By: Katie Almonte MD.br\Date and Time Signed: 02/20/23 12:03 EDT\.br\Electronically Co-Signed By: Sepideh Perez.br\Date and Time Co-Signed: 02/20/23 11:49 EDT Covid-19 PCR (CVDTBH)on 07-15 SARS-CoV-2 (COVID-19) RNA AZUL+probe Ql (Unsp spec) Not detected Normal NOT DETECTED [facility] Comment on above: Result Comment: This test is not yet approved or cleared by the [place] FDA. When there are no FDA-approved or cleared tests available, and other criteria are met, FDA can make tests available under an emergency access mechanism called an Emergency Use Authorization (EUA). The EUA for this test is supported by the [place] of Health and Human Service's (HHS's) declaration [...] SARS-CoV-2. Performed By: #### C VDTBH #### [facility] [address] [place] [address] Dr. Manjula Arzate CREATININEon 06-13-2022 Creatinine [Mass/Vol] 0.98 mg/dL Normal 0.55-1.02 [facility] Comment on above: Performed By: #### C JESUS #### [facility] [address] [place] [address] Dr. Manjula Arzate EGFR-AF [place] >60 Normal >=60 [facility] Comment on above: Performed By: #### C JESUS #### [facility] [address] [place] [address] Dr. Manjula Arzate EGFR-NON AF [place] 55 mL/min/1.73m2 Critically low >=60 [facility] Comment on above: Performed By: #### C JESUS #### [facility] [address] [place] [address] ABD/PELV W CONon [...] by: DARIO BESS Date: 2022-06-13 17:40 Normal [facility] CT ABD/PELVIS WO CONon 11-27 CT ABD/PELVIS [...] by: DARIO BESS Date: 2021-11-27 10:41 Normal [facility] Vital Signs Date Time Vital Sign Value Performing Clinician Facility 04-29-2024 08:0400 Body height 165.1 cm [facility] 04-29-2024 08:210400 Body mass index (BMI) [Ratio] 33.8 kg/m2 [facility] 04-29-2024 08:0400 Body weight 92.3 kg [facility] 04-29-2024 08:21-0400 Diastolic blood pressure 82 mm[Hg] [facility] 04-29-2024 08:21-0400 Heart rate 74 /min [facility] 04-29-2024 08:0400 Respiratory rate 16 /min [facility] 04-29-2024 08:21-0400 SaO2% (BldA) [Mass fraction] 96 % [facility] 04-29-2024 08:21-0400 Systolic blood pressure 120 mm[Hg] [facility] 01-24-2024 10:54-0400 Body height 165.1 cm [facility] 01-24-2024 10:54-0400 Body mass index (BMI) [Ratio] 35.6 kg/m2 [facility] 01-24-2024 10:54-0400 Body weight 97.06 kg [facility] 01-24-2024 10:54-0400 Diastolic blood pressure 81 mm[Hg] [facility] 01-24-2024 10:54-0400 Heart rate 71 /min [facility] 01-24-2024 10:54-0400 Systolic blood pressure 121 mm[Hg] [facility] 01-15-2024 10:37-0400 Blood Pressure Location Katie Lue [facility] 01-15-2024 10:37-0400 Body temperature 97.88 [degF] Katie Lue [facility] 01-15-2024 10:37-0400 Diastolic blood pressure 78 mm[Hg] Katie Lue [facility] 01-15-2024 10:37-0400 Heart rate 71 /min Katie Lue [facility] 01-15-2024 10:37-0400 Systolic blood pressure 132 mm[Hg] Katie Lue [facility] 02-20-2023 10:53-0400 Blood Pressure Location Katie Lue [facility] 02-20-2023 10:53-0400 Diastolic blood pressure 76 mm[Hg] Katie Lue [facility] 02-20-2023 10:53-0400 Heart rate 68 /min Katie Lue [facility] 02-20-2023 10:53-0400 Respiratory rate 16 /min Katie Lue [facility] 02-20-2023 10:53-0400 Systolic blood pressure 130 mm[Hg] Katie Lue [facility] 08-22-2022 11:50-0500 Blood Pressure Location Katie Lue [facility] 08-22-2022 11:50-0500 Diastolic blood pressure 78 mm[Hg] Katie Lue [facility] 08-22-2022 11:50-0500 Heart rate 68 /min Katie Lue [facility] 08-22-2022 11:50-0500 Respiratory rate 16 /min Katie Lue [facility] 08-22-2022 11:50-0500 Systolic blood pressure 132 mm[Hg] Katie Lue [facility] 12-05-2021 10:33-0400 Diastolic blood pressure 81 mm[Hg] Mally Key Jr. [facility] 12-05-2021 10:33-0400 Mean blood pressure 101 mm[Hg] Mally Key Jr. [facility] 12-05-2021 10:33-0400 Systolic blood pressure 142 mm[Hg] Mally Key Jr. [facility] 12-05-2021 10:12-0400 Blood Pressure Location Mally Key Jr. [facility] 12-05-2021 10:12-0400 Diastolic blood pressure 97 mm[Hg] Mally Key Jr. [facility] 12-05-2021 10:12-0400 Heart rate 87 /min Mally Key Jr. [facility] 12-05-2021 10:12-0400 Respiratory rate 16 /min Mally Key Jr. [facility] 12-05-2021 10:12-0400 Systolic blood pressure 163 mm[Hg] Mally Key Jr. [facility] Encounters Encounter Date Encounter Type Care Provider Facility Start: 04-29-2024 End: 04-29-2024 ambulatory [facility] Work Phone: Start: 04-29-2024 End: 04-29-2024 Patient encounter procedure [facility] Work Phone: Start: 04-10-2024 End: 04-10-2024 ambulatory Johny Perdomo DO Facility:[facility] Start: 03-20-2024 ambulatory Johny Perdomo DO Fa cility:[facility] Start: 02-05-2024 Patient encounter procedure [facility] Start: 01-24-2024 End: 01-24-2024 ambulatory [facility] Work Phone: Start: 01-24-2024 End: 01-24-2024 Patient encounter procedure [facility] Work Phone: Start: 01-15-2024 End: 01-15-2024 ambulatory Katie Mervin. Lue Facility:[facility] Start: 01-15-2024 End: 01-15-2024 Lab Drop off Katie M. Lue [facility] Start: 01-15-2024 End: 01-15-2024 ambulatory Katie M. Lue Facility:[facility] Start: 01-15-2024 End: 01-15-2024 Patient encounter procedure Katie Jeffries. Lue [facility] Start: 08-01-2023 End: 08-01-2023 ambulatory Hafsa Knowles Other [facility] Other Start: 08-01-2023 Telephone encounter Hafsa Benson [facility] Start: 07-30-2023 End: 07-30-2023 ambulatory Hafsa Knowles Other [facility] Other Start: 07-30-2023 Telephone encounter Hafsa Benson [facility] Start: 02-20-2023 End: 02-20-2023 ambulatory Katie M. Lue Facility:[facility] Start: 02-20-2023 End: 02-20-2023 Patient encounter procedure Katie M. Lue [facility] Start: 08-22-2022 End: 08-22-2022 Patient encounter procedure Katie M. Lue [facility] Start: 08-01-2022 End: 08-01-[address] ANTWON BAKER Facility:[facility] Start: 07-30-2022 End: 07-31-[address] ANTWON BAKER Facility:[facility] Start: 07-12-2022 Adult health examination Hafsa Knowles Other [facility] Other Start: 06-13-2022 End: 06-14-[address] HAFSA KNOWLES Facility:[facility] Start: 12-05-2021 End: 12-05-2021 Patient encounter procedure Mally Key Jr. [facility] Start: 11-27-2021 End: 11-28-[address] [...] C enter MG Breast - bilateral Screening [facility] Immunizations Immunization Date Immunization Notes Care Provider Fa cility 04-10-2022 SARS-CoV-2 (COVID-19 ) [id number] Katie Lue [facility] 04-11-2021 SARS-CoV-2 (COVID-19 ) mRNA BNT-162b2 vax Katie Lue [facility] 02-15-2021 zoster vaccine recombinant Katie Lue [facility] 11-30-2020 zoster vaccine recombinant Katie Lue [facility] 08-30-2020 SARS-CoV-2 (COVID-19 ) mRNA BNT-162b2 vax Katie Lue [facility] Comment on above: Result Comment: 2022: [id number] 08-09-2020 SARS-CoV-2 (COVID-19 ) mRNA BNT-162b2 vax Katie Lue [facility] Comment on above: Result Comment: 2022: [id number] 05-16-2020 influenza virus vaccine, split virus (incl. purified surface antigen) Hafsa Knowles Other [facility] Other 05-16-2020 influenza virus vaccine, unspecified formulation [facility] 04-26-2020 influenza virus vaccine, unspecified formulation Katie Lue [facility] 12-16-2018 pneumococcal polysaccharide vaccine, 23 valent Hafsa Knowles Other [facility] 11-07-2017 pneumococcal conjuga te vaccine, 13 valent Mally Key Jr. [facility] 11-07-2017 pneumococcal Conjuga te, unspecified formulation; Translations: [Need for prophylactic vaccination against Streptococcus pneumoniae (pneumococcus)] Hafsa Knowles Other [facility] Other 10-13-2017 pneumococcal polysaccharide vaccine, 23 valent Katie Almonte [facility] 04-14-2017 influenza virus vaccine, unspecified formulation Katie Almonte [facility] Payers Date Payer Category Payer Medicare 2012 Unknown 1957 Medicare [id number] 1957 Unknown [id number] 1945 Unknown [id number] 2.16.84 [id number] 1945 Unknown [id number] 2.16.84 [id number] 1945 Unknown [id number] 2.16.84 [id number] 1945 Unknown [id number] 2.16.84 [id number] 1945 Unknown [id number] 2.16.8 [id number] 1945 Unknown [id number] 2.16.8 [id number] 1945 Unknown [id number] 2.16.8 [id number] 1945 Unknown [id number] 2.16. [id number] Medicare Medicare [id number] Social History Date Type Detail Facility Start: 12-05-2021 End: 07-23-2023 Tobacco smoking status Never smoked tobacco (finding) [facility] Sex Assigned At Female [facility] Tobacco smoking status Never [facility] Start: 1945 Sex Assigned At Female F [facility] Functional Status Date Assessment Result Facility 01-15-2024 Functional Status N/A [facility] 02-20-2023 Functional Status N/A [facility] 08-22-2022 Functional Status N/A [facility] Clinical Notes 12-05-2021 to 04-10-2024 Note Date [...] Signed, Electronically Signed in Other Vendor System) [facility] 04-10-2024 Note Procedure: MRI of th [...] Signed, Electronically Signed in Other Vendor System) [facility] 01-15-2024 Evaluation + Plan note Diagnostic Tests PendingUrine Culture 01/15/24 [facility] 01-15-2024 Hospital Discharg e instructions Patient Education [...] provider. Document Revised: 11/09/2021 Document Reviewed: 11/09/2021 [employer] Patient Education 2022 to be. Follow Up Care 02/20/2023 12:02:25 With:Gage JACOB, Katie Arteaga, URL, URO Address: [address], [place] [address]- [phone] When: Unknown [facility] 01-15-2024 Note Patient Education Obstetrics and [...] provider. Document Revised: 11/09/2021 Document Reviewed: 11/09/2021 [employer] Patient Education ? 2022 to be. [facility] 07-30-2023 Evaluation note Encounter Date Diagnosis Assessment Notes Jul, Acute non-recurrent maxillary sinusitis (ICD-10 - J01.00) [facility] Other 08-09-2023 Hospital Discharge instructions Patient Education 02/20/2023 09:58:29 Urinary Tract Infection, Adult, Vgzk-sn-Fplg Urinary Tract Infection, Adult A urinary tract [...] Follow these instructions at home: Medicines Take orlu-djb-rdjktvm and prescription medicines only as told by [...] provider. Document Revised: 02/10/2021 Document Reviewed: 02/10/2021 [employer] Patient Education 2022 to be. Follow Up Care 08/22/2022 12:56:32 With:Gage JACOB, KEKE Carrera, U[facility] Address: When:Within 1 Year(s) [facility] 02-08-2023 Hospital Discharge instructions Patient Education [...] 06/17/2013 Document Revised: 02/18/2019 Document Reviewed: 02/18/2019 [employer] Patient Education 2020 to be. Follow Up Care 06/13/2022 11:42:12 With:Gage JACOB, KEKE Carrera, URO Address: When: Unknown [facility] 05-24-2022 Hospital Discharge instructions Patient Education [...] provider gives to you. In general: Take ytru-xxi-cfsmwlb and prescription medicines only as told by [...] 01/26/2015 Document Revised: 08/07/2018 Document Reviewed: 08/07/2018 [employer] Patient Education 2020 to be. Follow Up Care 06/07/2021 13:20:37 With:Shahid Ontiveros MD, Mally Mendiola, URO Address: [facility] [address], [place] [address]- When: Unknown [facility] evaluation + Plan note No data available for this section [facility] evaluation + Plan note Future Appointments Appointment Date:02/20/2023 10:45:00 AM Scheduled Provider:Katie Almonte MD Location:[facility] Appointment Type:URO Office Visit [facility] evaluation + Plan note Future Appointments Appointment Date:02/26/2024 10:45:00 AM Scheduled Provider:Katie Almonte MD Location:[facility] Appointment Type:URO Office Visit [facility] evaluation noteNo InformationNort PackLink Other Evaluation note* Diagnosis Onset Date Resolution Status Menopausal and postmenopausal disorder acute Screening mammogram for breast cancer acute [facility] Work Phone: Evaluation noteNo assessment information available [facility] Work Phone: History general Narrative - [...] ABOVE SURGERY Hospitalization History CHILD X'S 2 [facility] Other Hospital Discharge instructions No data available for this section [facility] No data available for this section [facility] Summary Purpose Family History Relationship Condition Age [...] and content) DATE CREATED AUTHOR 08/02/2022 [facility] DATE CREATED AUTHOR AUTHOR'S ORGANIZ ATION 01/16/2024 [facility] DATE CREATED AUTHOR AUTHOR'S ORGANIZ ATION 01/19/2024 [facility] DATE CREATED AUTHOR AUTHOR'S ORGANIZ ATION 04/11/2024 [facility] Patient Care team informatio n (unrecognized [...] BE BASED ON THE PRIMARY CLINICAL RECORDS. [facility] [employer] [facility] provides no warranty or guarantee of the accuracy or completeness of information in this document.
--- NOTE | 2024-05-02 10:34 | ED.GENADUL1 ---
HPI HPI - General Adult General Stated complaint: LOWER EXTREMITY PAIN, RIGHT Time Seen by Provider: 05/02/24 09:31 Source: patient Mode of arrival: walk-in History of Present Illness HPI narrative: The patient is coming today after she noticed some area of redness in her right leg, she mentioned that she noted this yesterday mostly and it was more painful this morning. She also noticed some redness in the area She denied any fall or trauma she mentioned that she is planned to have a knee replacement next Saturday and she is worried about getting infection Related Data Home Medications ?Medication ?Instructions ?Recorded ?Confirmed biotin 5 mg capsule 5 mg PO DAILY 05/01/24 05/01/24 cholecalciferol (vitamin D3) 125 125 mcg PO DAILY 05/01/24 05/01/24 mcg (5,000 unit) capsule cranberry 500 mg capsule 500 mg PO DAILY 05/01/24 05/01/24 d-mannose 500 mg capsule mg PO 05/01/24 estradiol 0.01% (0.1 mg/gram) 0.5 appful vaginal .twice a week 05/01/24 05/01/24 vaginal cream loratadine 10 mg capsule 10 mg PO DAILY 05/01/24 05/01/24 nitrofurantoin macrocrystal 50 mg 50 mg PO Q24H 05/01/24 05/01/24 capsule (Macrodantin) Previous Rx's ?Medication ?Instructions ?Recorded cephalexin 500 mg capsule 500 mg PO Q8H 3 days #9 caps 05/02/24 Allergies Allergy/AdvReac Type Severity Reaction Status Date / Time codeine AdvReac Nausea Verified 05/01/24 08:26 Opioid HPI Opioid Management Most Recent Opioid Data: No Data to Display Review of Systems ROS Status of ROS 10 or more systems reviewed and unremarkable except as noted in history and below PFSH [facility] Medical History (Updated 05/02/24 @ 09:50 by Maryan Mcwilliams MD) Arthritis ?M19.90 - Unspecified osteoarthritis, unspecified site (ICD-10) History of ITP (1989) ?Z86.2 - Personal history of diseases of the blood and blood-forming organs and certain disorders involving the immune mechanism (ICD-10) History of blood transfusion ?Z92.89 - Personal history of other medical treatment (ICD-10) Thyroid cyst ?E04.1 - Nontoxic single thyroid nodule (ICD-10) Phlebitis ?I80.9 - Phlebitis and thrombophlebitis of unspecified site (ICD-10) Varicose vein of leg ?I83.90 - Asymptomatic varicose veins of unspecified lower extremity (ICD-10) Knee pain ?M25.569 - Pain in unspecified knee (ICD-10) Seasonal allergic rhinitis ?J30.2 - Other seasonal allergic rhinitis (ICD-10) Cataracts, bilateral ?H26.9 - Unspecified cataract (ICD-10) Hyperparathyroidism ?E21.3 - Hyperparathyroidism, unspecified (ICD-10) Renal cyst ?N28.1 - Cyst of kidney, acquired (ICD-10) Osteopenia ?M85.80 - Other specified disorders of bone density and structure, unspecified site (ICD-10) Vitamin D deficiency ?E55.9 - Vitamin D deficiency, unspecified (ICD-10) Chronic UTI ?N39.0 - Urinary tract infection, site not specified (ICD-10) Genu varum of right lower extremity ?M21.161 - Varus deformity, not elsewhere classified, right knee (ICD-10) Primary osteoarthritis of right knee ?M17.11 - Unilateral primary osteoarthritis, right knee (ICD-10) Surgical History (Updated 05/01/24 @ 08:42 by Francesca Zavala NP) History of colonoscopy ?Z98.890 - Other specified postprocedural states (ICD-10) H/O knee surgery ?Z98.890 - Other specified postprocedural states (ICD-10) H/O breast biopsy ?Z98.890 - Other specified postprocedural states (ICD-10) History of cholecystectomy ?Z90.49 - Acquired absence of other specified parts of digestive tract (ICD-10) H/O oophorectomy H/O parathyroidectomy ?Z98.890 - Other specified postprocedural states (ICD-10) ?Z90.89 - Acquired absence of other organs (ICD-10) History of hysterectomy ?Z90.710 - Acquired absence of both cervix and uterus (ICD-10) H/O tubal ligation ?Z98.51 - Tubal ligation status (ICD-10) H/O splenectomy (1989) ?Z90.81 - Acquired absence of spleen (ICD-10) S/P arthroscopic knee surgery ?Z98.890 - Other specified postprocedural states (ICD-10) Family History (Updated 05/01/24 @ 08:42 by Francesca Zavala NP) Other Cancer Family history of DVT Family history of myocardial infarction Social History (Updated 05/01/24 @ 08:31 by Francesca Zavala NP) Within the past year, how often did you have a drink containing alcohol: never Score interpretation: A score less than 3 is consistent with normal alcohol consumption. 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 Right leg: Right leg examination showed that the patient have a area almost 2 x 3 cm oval in shape tender in the middle with no fluctuation red and warm The patient does have varicose veins in the area and she does have a good anterior tibial pulse with no vascular injury detected General: Well-appearing and in no apparent distress. Skin: Warm, dry, no pallor noted. No rash. Head: Normocephalic, atraumatic. Neck: Supple, non-tender. Eye: Pupils are equal, round and EOMI. No scleral icterus. Ears, Nose, Mouth, and Throat: TM are clear, no nasal mucosal hypertrophy. Oral mucosa is moist, no posterior oropharynx erythema, uvula is mid-line Cardiovascular: Regular Rate and Rhythm without murmur, gallop or rub. Respiratory: No accessory muscle use or respiratory distress. Lungs are clear to auscultation, no wheezing, rales or rhonchi Chest Wall: no tenderness Back: No midline thoracic or lumbar vertebral tenderness. No CVA tenderness GI: Abdomen is soft, non-distended. Normal bowel sounds. No masses appreciated. No tenderness to palpation. No rebound, guarding, or rigidity noted. Neurological: A&O x4. No cranial nerve dysfunction observed. No truncal ataxia. Moves all extremities. Sensation intact. Psychiatric: Cooperative and interactive. Normal mood and affect. Constitutional Vital Signs, click to edit/add: Last Vital Signs Temp 98 F 05/02/24 09:27 Pulse 84 05/02/24 09:27 Resp 20 05/02/24 09:27 BP 171/98 H 05/02/24 09:27 Pulse Ox 96 05/02/24 09:27 Course Vital Signs Vital signs: Vital Signs Temperature 98 F 05/02/24 09:27 Pulse Rate 84 05/02/24 09:27 Respiratory Rate 20 05/02/24 09:27 Blood Pressure 171/98 H 05/02/24 09:27 Pulse Oximetry 96 05/02/24 09:27 Temperature 98 F 05/02/24 09:27 Pulse Rate 84 05/02/24 09:27 Respiratory Rate 20 05/02/24 09:27 Blood Pressure 171/98 H 05/02/24 09:27 Pulse Oximetry 96 05/02/24 09:27 Medical Decision Making MDM Narrative Medical decision making narrative: The patient area of redness could be secondary to phlebitis although it could be secondary to also mild cellulitis the patient was instructed about supportive care elevation and taking Tylenol for pain Also the patient to take Keflex for the next 3 days and monitor In case of any increasing redness the patient to be come back to the ER The patient is to follow up with primary care physician in next 2-3 days or to return to the emergency department should any of the signs or symptoms worsen or new symptoms develop. The patient agrees with the following Diagnosis and Treatment plan and the patient will be discharged home. Discharge Plan Discharge Clinical Impression: Phlebitis, Cellulitis Patient Disposition: Home, Self-Care Time of Disposition Decision: 09:50 Condition: Good Prescriptions / Home Meds: New cephalexin 500 mg capsule 500 mg PO Q8H 3 Days Qty: 9 0RF No Action estradiol 0.01 % (0.1 mg/gram) cream 0.5 appful VAGINAL .twice a week cholecalciferol (vitamin D3) 125 mcg (5,000 unit) capsule 125 mcg PO DAILY cranberry 500 mg capsule 500 mg PO DAILY Rx Instructions: administer with a meal biotin 5 mg capsule 5 mg PO DAILY d-mannose 500 mg capsule PO nitrofurantoin macrocrystal [Macrodantin] 50 mg capsule 50 mg PO Q24H Rx Instructions: must administer with a meal/food loratadine 10 mg capsule 10 mg PO DAILY Print Language: Belarusian Instructions: Cellulitis (ED), Phlebitis (ED) Referrals: Hafsa Browning MD [Primary Care Provider] - 1 week Discharge Date/Time: 05/02/24 09:59
== END 2024-05-02 09:59 | disposition home or self-care (01) ==
PROVIDERS: Emergency Provider Emergency Medicine; PCP Family Medicine
DX: L03.115 Cellulitis of right lower limb (principal); I80.3 Phlebitis and thrombophlebitis of lower extremities, unspecified
CPT/HCPCS: 99284

== ENCOUNTER 2024-05-07 16:15 | Outpatient (OUT) | payer MEDICARE, OTHER, SELFPAY ==
--- NOTE | 2024-05-07 | XR_ITS ---
The [address] [address] Patient Name: BHAVESH MONTEIRO MRN: [id number] date: 1945 Sex: F Assigned Patient Location: LAB Current Patient Location: LAB Accession/Order Number: [id number] Exam Date: 05/07/2024 16:20 Report Date: 05/08/2024 06:37 At the request of: HARLAN KNOWLES Procedure: XR tibia fibula RT 2V PROCEDURE: XR tibia fibula RT 2V HISTORY: Pain of right lower extremity COMPARISON: None. FINDINGS: BONES:No fracture, dislocation, bone lesion. Lateral joint space narrowing of the knee. Degenerative enthesophyte at Achilles tendon insertion into the calcaneus. SOFT TISSUES:Subcutaneous edema/swelling of the lower extremity. There is suggestion of prominent varicosities within the medial calf. EFFUSION:None visible. OTHER: Negative. XR/XR tibia fibula RT 2V IMPRESSION: 1. Prominent subcutaneous edema/swelling. 2. Degenerative joint disease of the knee. No acute or suspicious bone abnormality. Electronically authenticated by: DARIO BESS Date: 05/08/2024 06:37
--- NOTE | 2024-05-07 | US_ITS ---
The [address] [address] Patient Name: BHAVESH MONTEIRO MRN: [id number] date: 1945 Sex: F Assigned Patient Location: LAB Current Patient Location: Accession/Order Number: [id number] Exam Date: 05/07/2024 16:20 Report Date: 05/08/2024 06:35 At the request of: HARLAN KNOWLES Procedure: US venous doppler LE RT EXAMINATION: US venous doppler LE RT HISTORY: Pain of right lower extremity COMPARISON: No relevant comparison available. FINDINGS: REGION: Right lower extremity THROMBI: None. COMPRESSIBILITY: Normal compressibility. FLOW: Normal waveform and antegrade flow between 5 and 20 cm/s. OTHER: None. US/US venous doppler LE RT IMPRESSION: 1. No deep vein thrombus within the right lower extremity. Electronically authenticated by: DARIO BESS Date: 05/08/2024 06:35
--- OUTSIDE RECORDS SUMMARY | 2024-05-07 16:20 | XMS_ITS | CCD ---
Author Organization [facility] Care Team Providers Care Supervisor Clam Bed Name Role Phone HAFSA KNOWLES Primary Care Physician [phone] SAMUEL, DR ANTWON Sharma Admitting Unavailparadise BAKER, DR ANTWON Sharma Attending Unavailparadise KNOWLES, DR HAFSA Sharma Primary Care Unavailable SAMUEL, DR ANTWON Sharma Consulting UnavailEMILEE Trimble Consulting Unavailable ALFONSO, BETZY Consulting Unavailable SHAHID ORTEGA, DR MALLY Mendiola Admitting Unavailparadise KEY JR, DR MALLY Mendiola Attending Unavailparadise KNOWLES, DR HAFSA Sharma Primary Care Unavailable SHAHRIAR, DR DARIO Duarte Consulting Unavailable SHAHID ORTEGA, DR MALLY Mendiola Consulting Unavailabl e BENSON, DR HAFSA Sharma Admitting Unavailable KNOWLES, DR HAFSA Sharma Attending Unavailable BENSON, DR HAFSA Sharma Primary Care Unavailable SHAHRIAR, DR DARIO Duarte Consulting Unavailable SHAHID ORTEGA, DR MALLY Mendiola Consulting Unavailparadise e SAMUEL, DR ANTWON Sharma Admitting Unavailabl e SAMUEL, DR ANTWON Sharma Attending Unavailabl e BENSON, DR HAFSA Sharma Primary Care Unavailable SAMUEL, DR ANTWON Sharma Consulting Unavailparadise Knowles, Hafsa Unavailable Katie Almonte Attending Unavailable Katie Almonte Attending Unavailable Katie Almonte Attending Unavailable Katie Almonte Admitting Unavailable Johny Perdomo DO Attending UnavailJohny Wallace DO Attending Unavailparadise Knowles MD, Hafsa Ledezma Primary Care Unava ilable Allergies Allergy Classification Reported Allergen(s) Allergy Type Date of Onset Reaction(s) Facility (11 sources) Codeine; Translations: [codeine] Drug Allergy 12-26-19 16 nausea, Unknown, Hives [facility] (1 source) Codeine Drug Allergy [facility] Repository (2 sources) Acetaminophen / HYDROcodone Drug Allergy Unknown [facility] Other (2 sources) Codeine Drug Allergy Unknown [facility] Other (2 sources) patient allergy list reviewed by nurse or physicia Propensity to adverse reactions 04-29-20 Comment:Done [facility] Other (2 sources) Allergies Reconciled Propensity to adverse reactions Unknown [facility] Other (3 sources) Acetaminophen Drug Allergy 01-24-20 [facility] (3 sources) HYDROcodone Drug Allergy 01-24-20 [facility] Medications Current Medications Medication Drug Class(es) Dates Sig (Normalized) Sig (Original) biotin 5 mg oral capsule (10 sources) Start: 01-21-2024 take 5 mg by mouth once daily Biotin Active 5 MG PO Daily January 21, 2024 12:00am Start: 10-25-2020 biotin 5000 mc g oral capsule Refills(s) 0 Start Date: 10/25/20 Status: Ordered take 1 capsule by [facility] once daily Biotin 5000 5 MG 1 capsule Orally Once a day Active cephalexin 500 mg oral capsule (3 sources) Cephalosporin Antibacterial Start: 05-05-2024 take 500 mg by mouth three times daily Cephalexin Active 500 MG PO Three times daily May 07, 2024 12:00am Start: 12-05-2021 take 1 capsule by [facility] every twelve hours Keflex 500 mg Cap 500 mg = 1 cap(s), Oral, q12hr, # 6 cap(s), Refills(s) 0, Pharmacy: [id number], 168, cm, 12/05/21 10:16:00 EDT, Height/Length Dosing, 97.5, kg, 12/05/21 10:16:00 EDT, Weight Dosing Start Date: 12/05/21 Status: Ordered cholecalciferol 0.025 mg oral capsule (3 sources) Vitamin D Start: 01-21-2024 take 25 ug by mouth once daily Cholecalciferol (Vitamin D3) Active 25 MCG PO Daily January 21, 2024 12:00am ciprofloxacin 500 mg oral tablet (2 sources) Quinolone Antimicrobial Start: 07-23-2023 take 1 tablet by mouth every twelve hours Ciprofloxacin HCl 500 MG 1 tablet Orally every 12 hrs for 7 days Jul, Active estradiol 0.1 mg/ml vaginal cream (7 sources) Estrogen Start: 01-24-2024 Estradiol (Estrace) 0.01 % (0.1 mg/gram) cream Active 1 APPLICATOR VAGINAL Daily January 24, 2024 12:00am for 14 days Start: 01-15-2024 Estrace 0.1 mg /g Cream See Instructions, 42.5 gm, Refill(s) 6, Apply pea-sized amound around the opening of the urethra 3 times per week for 1 month then 2 times per week after for maintenance., [id number], 168, cm, 01/15/24 10:54:00 EDT, Height/Length Dosing, 96, kg, 01/15/24 10:54:00 EDT, Weight Dosing Start Date: 01/15/24 Status: Ordered Start: 08-22-2022 Estrace 0.1 mg /g Cream See Instructions, 42.5 gm, Refill(s) 6, Apply pea-sized amound around the opening of the urethra 3 times per week for 1 month then 2 times per week after for maintenance., [facility], 168, cm, 08/22/22 11:52:00 EST, Height/Length Dosin... Start Date: 08/22/22 Status: Ordered fexofenadine hydrochloride 60 mg oral tablet (8 sources) Histamine-1 Receptor Antagonist Start: 01-24-2024 take 1 tablet by mouth twice daily Fexofenadine (Mary Allergy) 60 mg tablet Active 60 MG PO Twice daily January 24, 2024 12:00am Start: 10-25-2020 Mary Oral, Refills(s) 0 Start Date: 10/25/20 Status: Ordered nitrofurantoin, macrocrystals 50 mg oral capsule (8 sources) Nitrofuran Antibacterial Start: 03-24-2024 take 1 [...] omeprazole 40 mg delayed release oral capsule (5 sources) Proton Pump Inhibitor Start: 01-21-2024 End: 01-24-2024 take 40 mg by mouth once daily Omeprazole Discontinued 40 MG PO Daily January 21, 2024 12:00am January 24, 2024 11:02am Start: 09-05-2020 take 1 capsule by [facility] once daily Omeprazole 40 MG Omeprazole [...] of urination] Onset: 08-22-2022 Episodic Menopausal disorders (13 sources) Atrophic vaginitis; Translations: [Postmenopausal atrophic vaginitis] [...] reading, without diagnosis of hypertension] Episodic Other connective tissue disease (1 source) Pain in right lower limb; Translations: [Pain in right leg] 05-07-2024 Episodic Other connective tissue disease (1 source) Pain in right leg; Translations: [Pain in limb] 05-07-2024 Episodic Other diseases of kidney and ureters [...] conditions (not mental disorders or infectious disease) (6 sources) Elevated liver enzymes level; Translations: [Other [...] Results Test Name Value Interpretation Reference Range Facility Activated partial thrombopla stin time (aPTT) in platelet poor plasma by coagulation aon 05-01-2024 aPTT Coag (PPP) [Time] 30.5 s 22.3-36.2 [facility] Basophils Auto (Bld) [#/Vol] on 05-01-2024 Basophils (Bld) [#/Vol] 0.0 10 3/uL 0.0-0.1 [facility] Basophils/100 WBC Auto (Bld) on 05-01-2024 Basophils/100 WBC (Bld) 0.7 % 0.2-2.0 [facility] Eosinophils/100 WBC Auto (Bl d)on 05-01-2024 Eosinophils/100 WBC (Bld) 3.8 % 0.9-7.0 [facility] Erythrocyte distribution wid th Auto (RBC) [Ratio]on 05-01-2024 Erythrocyte distribution width (RBC) [Ratio] 14.4 % 11.0-15.0 [facility] Estimated glomerular filtrat ion rate (GFR) non- Americanon 05-01-2024 GFR/1.73 sq M.predicted among non-blacks MDRD (S/P/Bld) [Vol rate/Area] 51 mL/min/{1.73_m2} Low >=60 mL/min/1.73m 2 [facility] Globulin Calc (S) [Mass/Vol] on 05-01-2024 Globulin (S) [Mass/Vol] 4.3 g/dL [facility] Hematocrit Auto (Bld) [Volum e fraction]on 05-01-2024 Hematocrit (Bld) [Volume fraction] 39.1 % 36.0-48.0 [facility] Hemoglobin [Mass/volume] in Bloodon 05-01-2024 Hemoglobin (Bld) [Mass/Vol] 13.1 g/dL 12.0-16.0 [facility] INR in Platelet poor plasma by Coagulation assayon 05-01-2024 INR Coag (PPP) [Relative time] 1.07 {INR} [facility] Comment on above: DESIRED INR:2.0-3.0 CONDITIONS NOT LISTED BELOW2.5-3.5 FOR PROSTHETIC HEART VALVE REPLACEMENT2.5-3.5 RECURRENT THROMBOSIS Laboratory - Chemistry and C hemistry - challengeon 05-01-2024 Bilirubin Ql (U) Negative NEGATIVE [facility] Glucose (U) [Mass/Vol] Negative [facility] Ketones Ql (U) Negative NEGATIVE [facility] pH (U) 6.0 [pH] 5.0-9.0 [facility] Specific gravity (U) [Rel density] 1.020 1.005-1.025 [facility] Urobilinogen Qn (U) 0.2 {Diana'U}/dL 0.2-1.0 [facility] Albumin [Mass/Vol] 2.9 g/dL Low 3.4-5.0 [facility] ALP [Catalytic activity/Vol] 196 U/L High 46-116 [facility] ALT [Catalytic activity/Vol] 44 U/L 14-59 [facility] AST [Catalytic activity/Vol] 51 U/L High 15-37 [facility] Bilirubin [Mass/Vol] 0.7 mg/dL 0.2-1.0 [facility] Bilirubin.direct [Mass/Vol] 0.2 mg/dL 0.0-0.2 [facility] Calcium [Mass/Vol] 9.1 mg/dL 8.5-10.1 [facility] Chloride [Moles/Vol] 107 mmol/L 98-107 [facility] CO2 [Moles/Vol] 25.8 mmol/L 21.0-32.0 [facility] Creatinine [Mass/Vol] 1.05 mg/dL High 0.55-1.02 [facility] GFR/1.73 sq M.predicted MDRD (S/P/Bld) [Vol rate/Area] mL/min/{1.73_m2} >=60 mL/min/1.73m 2 [facility] Glucose [Mass/Vol] 84 mg/dL 74-106 [facility] Potassium [Moles/Vol] 3.7 mmol/L 3.5-5.1 [facility] Protein [Mass/Vol] 7.2 g/dL 6.4-8.2 [facility] Sodium [Moles/Vol] 143 mmol/L 136-145 [facility] Urea nitrogen [Mass/Vol] 20.0 mg/dL High 7.0-18.0 [facility] Urea nitrogen/Creatinine [Mass ratio] 19.0 mg/mg [facility] Laboratory - Hematology and Cell countson 05-01-2024 Immature granulocytes/100 WBC (Bld) 0.2 % 0.0-0.5 [facility] Laboratory - Specimen inform ationon 05-01-2024 Appearance (U) CLEAR CLEAR [facility] Color (U) YELLOW YELLOW [facility] Laboratory - Urinalysison Leukocyte esterase Test strip Ql (U) Negative NEGATIVE [facility] Nitrite Ql (U) Negative NEGATIVE [facility] Protein Ql (U) Negative NEG/TRACE [facility] Leukocytes [#/volume] correc reji for nucleated erythrocytes in Blood by Automated counon 05-01-2024 WBC corrected for nucl RBC Auto (Bld) [#/Vol] 4.5 10 3/uL 4.0-11.0 [facility] Lymphocytes Auto (Bld) [#/Vo l]on 05-01-2024 Lymphocytes (Bld) [#/Vol] 2.0 10 3/uL 1.2-3.8 [facility] Lymphocytes/100 WBC Auto (Bl d)on 05-01-2024 Lymphocytes/100 WBC (Bld) 43.8 % 20.5-60.0 [facility] MCH Auto (RBC) [Entitic mass ]on 05-01-2024 MCH (RBC) [Entitic mass] 34.5 pg High 26.7-34.0 [facility] MCHC Auto (RBC) [Mass/Vol]on 05-01-2024 MCHC (RBC) [Mass/Vol] 33.5 g/dL 29.9-35.2 [facility] MCV Auto (RBC) [Entitic vol] on 05-01-2024 MCV (RBC) [Entitic vol] 102.9 fL High 81.0-99.0 [facility] Monocytes Auto (Bld) [#/Vol] on 05-01-2024 Monocytes (Bld) [#/Vol] 0.6 10 3/uL 0.3-0.8 [facility] Monocytes/100 WBC Auto (Bld) on 05-01-2024 Monocytes/100 WBC (Bld) 13.8 % High 1.7-12.0 [facility] Neutrophils Auto (Bld) [#/Vo l]on 05-01-2024 Neutrophils (Bld) [#/Vol] 1.7 10 3/uL 1.4-6.5 [facility] Neutrophils/100 WBC Auto (Bl d)on 05-01-2024 Neutrophils/100 WBC (Bld) 37.7 % Low 43.0-75.0 [facility] No Panel Informationon 05-01 Urine Microscopic Review NO [facility] Urine Occult Blood Negative NEGATIVE [facility] Eosinophils # (Auto) 0.2 10 3/uL 0.0-0.7 [facility] Immature Granulocyte # (Auto) 0.01 10 3/uL 0.00-0.03 [facility] No Panel InformationOrdered By: Johny Perdomo on 05-01-2024 MRSA Screening Culture [facility] Platelet mean volume Auto (B ld) [Entitic vol]on 05-01-2024 Platelet mean volume (Bld) [Entitic vol] 12.6 fL 9.5-13.5 [facility] Platelets Auto (Bld) [#/Vol] on 05-01-2024 Platelets (Bld) [#/Vol] 266 10 3/uL 150-450 [facility] Prothrombin time (PT)on 04-14 PT Coag (PPP) [Time] 11.3 s 9.0-11.6 [facility] RBC Auto (Bld) [#/Vol]on RBC (Bld) [#/Vol] 3.80 10 6/uL Low 4.20-5.40 [facility] Serum or plasma albumin/glob ulin mass ratioon 05-01-2024 Albumin/Globulin [Mass ratio] 0.7 {ratio} [facility] Serum or plasma anion gap de terminationon 05-01-2024 Anion gap [Moles/Vol] 13.9 mmol/L [facility] C Urineon 01-19-2024 Bacteria identified Cx Nom (U) Microbiology PROCEDURE: Urine Culture [R1] SOURCE: U CleanCatch BODY SITE: COLLECTED DATE/TIME: 01/15/2024 14:29 EDT RECEIVED DATE/TIME: 01/15/2024 17:37 EDT START DATE/TIME: 01/15/2024 17:37 EDT FREE TEXT SOURCE: Gage JACOB, Katie M. Katie Almonte MD FINAL REPORTS Final Report [] Verified Date/Time: 01/19/2024 08:36 EDT >100,000 cfu/ml Escherichia coli 1,000 cfu/ml Mixed skin contaminants SUSCEPTIBILITY RESULTS LEGEND: S=Susceptible, N/R=Not Reported, Blank=Data not available, or drug not advisable or tested, I=Intermediate, ESBL=Extended spectrum beta-lactamase, R=Resistant, TFG=Thymidine-depende nt strain, DONNIE=Beta-lactamase positive, PADDY=mcg/m;(mg/L), S*=Predicted susceptible interp, R*=Predicted resistant interp EC Antibiotic PADDY Dilutn PADDY Interp Ampicillin [...] Locations R1: This test was performed at: [facility], [address] [place] [address], [id number]- , [place], Normal [facility] Comment on above: Performed By: #### 2 [id number] #### [facility] [address] [place] [id number] Ambulatory Visit Summaryon 0 01-15-2024 Ambulatory Visit Summary Ambulatory Visit Summary DAMASO KAN :1945 Visit Date:01/15/2024 Ambulatory Visit Instructions Your Diagnosis Asymptomatic bacteriuria Urgency of urination Vaginal atrophy Renal cyst Your Care Team Attending Physician - Gage JACOB, Katei Arteaga Primary Care Physician - HAFSA KNOWLES [...] URL, URO When: Where: [address] [place] [phone] Medications What How Much When Instructions Unchanged estradiol topical (Estrace 0.1 mg/ g Cream) See instructions Apply pea-sized amound around the opening of the urethra 3 times per week for 1 month then 2 times per week after for maintenance. Pickup at [facility] Unchanged biotin (biotin 5000 mcg oral capsule) Contact prescribing physician if questions or concerns Unchanged cholecalciferol (Vitamin D3 5000 intl units oral capsule) 1 Capsules By Mouth Every day with food Contact prescribing physician if questions or concerns Unchanged fexofenadine (Mary) By Mouth Contact prescribing physician if questions or concerns Pharmacy Information [facility]: [address] [phone] Allergies codeine (nausea) Problems Ongoing - Any [...] intended to (more content not included)... Normal [facility] Urology Office/Clinic Noteon 01-15-2024 Urology Office/Clinic [...] Information Gage JACOB, Katie Arteaga, URL, URO [address], [place] [address]- [phone] Additional Instructions: pt's choice on when to schedule f/u Patient Education Kegel Exercises Anand, Yuliana Olson, personally scribed for Dr. Almonte on 01/15/2024 11:27:08. . Documentation recorded by the scribeYuliana, accurately reflects the services(s) I performed and decisions made by me. Authenticated by Dr. Almonte on 01/15/2024 23:28:03. Problem List/Past Medical History Ongoing Asymptomatic bacteriuria Calculus of gallbladder Hyperparathyroidism Osteopeni (more content not included)... Normal [facility] Comment on above: Result Comment: Elec tronically Signed By: Katie Almonte MD\.br\Date and Time Signed: 01/15/24 23:28 EDT\.br\Electronically Co-Signed By: Yuliana Olson\.br\Date and Time Co-Signed: 01/15/24 11:27 EDT [place] 02-21-2023 Screens [id number] Normal [facility] Patient Educationon 02-21-20 23 Patient Education [...] these instructions at home: Medicines ? Take lart-wio-jmxhzbs and prescription medicines only as told by [...] provider. Document Revised: 02/10/2021 Document Reviewed: 02/10/2021 [place] Patient Education ? 2022 A vida é feita de [place]. [facility] Urology Office/Clinic Noteon 02-20-2023 Urology Office/Clinic [...] medical exam (more content not included)... Normal [facility] Comment on above: Result Comment: Elec tronically Signed By: Katie Almonte MD\.br\Date and Time Signed: 02/20/23 12:03 EDT\.br\Electronically Co-Signed By: Sepideh Perez\.br\Date and Time Co-Signed: 02/20/23 11:49 EDT [facility] SARS-CoV-2 (COVID-19) RNA AZUL+probe Ql (Unsp spec) Not detected Normal NOT DETECTED [facility] Comment on above: Result Comment: This test is not yet approved or cleared by the [place] FDA. When there are no FDA-approved or cleared tests available, and other criteria are met, FDA can make tests available under an emergency access mechanism called an Emergency Use Authorization (EUA). The EUA for this test is supported by the [place] of Health and Human Service's (HHS's) declaration [...] SARS-CoV-2. Performed By: #### C VDTB #### [facility] [address] [address] [address] Manjula Arzate CREATININEon 06-13-2022 Creatinine [Mass/Vol] 0.98 mg/dL Normal 0.55-1.02 [facility] Comment on above: Performed By: #### C JESUS #### [facility] [address] [address] [address] Manjula Arzate EGFR-AF AZERBAIJANI >60 Normal >=60 [facility] Comment on above: Performed By: #### C JESUS #### [facility] [address] [address] [address] Manjula Arzate EGFR-NON AF AZERBAIJANI 55 mL/min/1.73m2 Critically low >=60 [facility] Comment on above: Performed By: #### C JESUS #### [facility] [address] ABD/PELV W CONon [...] by: DARIO BESS Date: 2022-06-13 17:40 Normal [facility] CT ABD/PELVIS WO CONon 11-27 CT [...] by: DARIO BESS Date: 2021-11-27 10:41 Normal [facility] Vital Signs Date Time Vital Sign Value Performing Clinician Facility 05-07-2024 14:390400 Body height 165.1 cm [facility] 05-07-2024 14:39040 Body mass index (BMI) [Ratio] 33.7 kg/m2 [facility] 05-07-2024 14:39040 Body weight 92.07 kg [facility] 05-07-2024 14:39-0400 Diastolic blood pressure 79 mm[Hg] [facility] 05-07-2024 14:390400 Heart rate 76 /min [facility] 05-07-2024 14:39-0400 Systolic blood pressure 116 mm[Hg] [facility] 04-29-2024 08:21-0400 Body height 165.1 cm [facility] 04-29-2024 08:21-0400 Body mass index (BMI) [Ratio] 33.8 kg/m2 [facility] 04-29-2024 08:21-0400 Body weight 92.3 kg [facility] 04-29-2024 08:21-0400 Diastolic blood pressure 82 mm[Hg] [facility] 04-29-2024 08:21-0400 Heart rate 74 /min [facility] 04-29-2024 08:21-0400 Respiratory rate 16 /min [facility] 04-29-2024 08:21-0400 SaO2% (BldA) [Mass fraction] 96 % [facility] 04-29-2024 08:21-0400 Systolic blood pressure 120 mm[Hg] [facility] 01-24-2024 10:54-0400 Body height 165.1 cm [facility] 01-24-2024 10:54-0400 Body mass index (BMI) [Ratio] 35.6 kg/m2 [facility] 01-24-2024 10:54-0400 Body weight 97.06 kg [facility] 01-24-2024 10:54-0400 Diastolic blood pressure 81 mm[Hg] [facility] 01-24-2024 10:54-0400 Heart rate 71 /min [facility] 01-24-2024 10:54-0400 Systolic blood pressure 121 mm[Hg] [facility] 01-15-2024 10:37-0400 Blood Pressure Location Katie Almonte [facility] 01-15-2024 10:37-0400 Body temperature 97.88 [degF] Katie Almonte [facility] 01-15-2024 10:37-0400 Diastolic blood pressure 78 mm[Hg] Katie Lue [facility] 01-15-2024 10:37-0400 Heart rate 71 /min Katie Lue [facility] 01-15-2024 10:37-0400 Systolic blood pressure 132 mm[Hg] Katie Lue [facility] 02-20-2023 10:53-0400 Blood Pressure Location Katie Lue [facility] 02-20-2023 10:53-0400 Diastolic blood pressure 76 mm[Hg] Katie Lue [facility] 02-20-2023 10:53-0400 Heart rate 68 /min Katie Lue [facility] 02-20-2023 10:53-0400 Respiratory rate 16 /min Katie Lue [facility] 02-20-2023 10:53-0400 Systolic blood pressure 130 mm[Hg] Katie Lue [facility] 08-22-2022 11:50-0500 Blood Pressure Location Katie Lue [facility] 08-22-2022 11:50-0500 Diastolic blood pressure 78 mm[Hg] Katie Lue [facility] 08-22-2022 11:50-0500 Heart rate 68 /min Katie Lue [facility] 08-22-2022 11:50-0500 Respiratory rate 16 /min Katie Almonte [facility] 08-22-2022 11:50-0500 Systolic blood pressure 132 mm[Hg] Katie Lue [facility] 12-05-2021 10:33-0400 Diastolic blood pressure 81 mm[Hg] Mally Key Jr. [facility] 12-05-2021 10:33-0400 Mean blood pressure 101 mm[Hg] Mally Key Jr. [facility] 12-05-2021 10:33-0400 Systolic blood pressure 142 mm[Hg] Mally Key Jr. [facility] 12-05-2021 10:12-0400 Blood Pressure Location Mally Key Jr. [facility] 12-05-2021 10:12-0400 Diastolic blood pressure 97 mm[Hg] Mally Key Jr. [facility] 12-05-2021 10:12-0400 Heart rate 87 /min Mally Key Jr. [facility] 12-05-2021 10:12-0400 Respiratory rate 16 /min Mally Key Jr. [facility] 12-05-2021 10:12-0400 Systolic blood pressure 163 mm[Hg] Mally Shahid Ontiveros [facility] Henrik Encounters Encounter Date Encounter Type Care Provider Facility Start: 05-07-2024 Non-patient / Non-visit [facility] Physician [facility] Work Phone: Start: 05-07-2024 End: 05-07-2024 ambulatory [facility] Work Phone: Start: 05-07-2024 End: 05-07-2024 Patient encounter procedure [facility] Physician [facility] Work Phone: Start: 2024 Non-patient / Non-visit [facility] Work Phone: Start: 05-01-[address] [facility] Start: 05-01-2024 Non-patient / Non-visit [facility] Work Phone: Start: 04-29-2024 End: 04-29-2024 ambulatory [facility] Work Phone: Start: 04-29-2024 End: 04-29-2024 Patient encounter procedure [facility] Work Phone: Start: 04-10-2024 End: 04-10-2024 ambulatory Johny Ray Perdomo DO Facility:[facility] Start: 03-20-2024 ambulatory Johny Ray Perdomo DO Fa cility:[facility] Start: 02-05-[address] [facility] Start: 01-24-2024 End: 01-24-2024 ambulatory [facility] Work Phone: Start: 01-24-2024 End: 01-24-2024 Patient encounter procedure [facility] Work Phone: Start: 01-15-2024 End: 01-15-2024 ambulatory Katie M. Lue Facility[facility] Start: 01-15-2024 End: 01-15-2024 Lab Drop off Katie M. Lue [facility] Start: 01-15-2024 End: 01-15-2024 ambulatory Katie M. Lue Facility:[facility] Start: 01-15-2024 End: 01-15-2024 Patient encounter procedure Katie M. Lue [facility] Start: 08-01-2023 End: 08-01-2023 ambulatory Hafsa Knowles Other [facility] Other Start: 08-01-2023 Telephone encounter Hafsa Knowles [facility] Start: 07-30-2023 End: 07-30-2023 ambulatory Hafsa Knowles Other [facility] Other Start: 07-30-2023 Telephone encounter Hafsa Knowles [facility] Start: 02-20-2023 End: 02-20-2023 ambulatory Katie M. Lue Facility:[facility] Start: 02-20-2023 End: 02-20-2023 Patient encounter procedure Katie M. Lue [facility] Start: 08-22-2022 End: 08-22-2022 Patient encounter procedure Katie M. [facility] Start: 08-01-2022 End: 08-01-[address] ANTWON BAKER Facility:[facility] Start: 07-30-2022 End: 07-31-[address] ANTWON BAKER Facility:[facility] Start: 07-12-2022 Adult health examination Hafsa Knowles Other [employer] Other Start: 06-13-2022 End: 06-14-[address] HAFSA KNOWLES Facility:[facility] Start: 12-05-2021 End: 12-05-2021 Patient encounter procedure Mally Key Jr. [facility] [place] Start: 11-27-2021 End: 11-28-[address] MALLY KEY JR Facility:[facility] Procedures Date Procedure Procedure Detail Performing Clinician Start: 05-01-2024 MRSA Screening Culture Start: 07-29-2019 Cholecystectomy Mally Key Jr. Start: 07-15-2016 Parathyroidectomy Gregg Key Jr. Start: 12-26-2015 General examination of patient Hafsa Knowles Other Start: 04-29-2015 Laboratory test resu lt abnormal Hafsa Benson Other Start: 04-29-2015 Screening mammography Mervin Knowles [...] Skeletal system. axial Views for bone density [facility] enter MG Breast - bilateral Screening [facility] US Lower extremity vein - right [facility] XR Tibia and Fibula - right [address] [facility] Immunizations Immunization Date Immunization Notes Care Provider Fa tomasa 04-10-2022 SARS-CoV-2 (COVID-19 ) [id number] Katie Lue [facility] 04-11-2021 SARS-CoV-2 (COVID-19 ) mRNA BNT-162b2 vax Katie Lue [facility] 02-15-2021 zoster vaccine recombinant Katie Lue [facility] 11-30-2020 zoster vaccine recombinant Katie Lue [facility] 08-30-2020 SARS-CoV-2 (COVID-19 ) mRNA BNT-162b2 vax Katie Lue [facility] Comment on above: Result Comment: 2022: [id number] 08-09-2020 SARS-CoV-2 (COVID-19 ) mRNA BNT-365b2 vax Katie Lue [facility] Comment on above: Result Comment: 2022: [id number] 05-16-2020 influenza virus vaccine, split virus (incl. purified surface antigen) Hafsa Knowles Other [employer] Other 05-16-2020 influenza virus vaccine, unspecified formulation [facility] 04-26-2020 influenza virus vaccine, unspecified formulation Katie Lue [facility] 12-16-2018 pneumococcal polysaccharide vaccine, 23 valent Hafsa Knowles Other [facility] 11-07-2017 pneumococcal conjuga te vaccine, 13 valent Mally Key Jr. [facility] 11-07-2017 pneumococcal Conjuga te, unspecified formulation; Translations: [Need for prophylactic vaccination against Streptococcus pneumoniae (pneumococcus)] Hafsa Knowles Other [employer] Other 10-13-2017 pneumococcal polysaccharide vaccine, 23 valent Katie Almonte [facility] 04-14-2017 influenza virus vaccine, unspecified formulation Katie Almonte [facility] Payers Date Payer Category Payer Medicare 2012 Unknown 1959 Medicare [id number] 1957 Unknown [id number] 1945 Unknown [id number] 2.16.84 [id number] 1945 Unknown [id number] 2.16.84 [id number] 1945 Unknown [id number] 2.16.84 [id number] 1945 Unknown [id number] 2.16.84 [id number] 1945 Unknown [id number] 2.16.8 [id number] 1945 Unknown [id number] 2.16.8 [id number] 1945 Unknown [id number] 2.16.8 [id number] 1945 Unknown [id number] 2.16. [id number] Medicare Medicare [id number] Social History Date Type Detail Facility Start: 12-05-2021 End: 07-23-2023 Tobacco smoking status Never smoked tobacco (finding) [facility] Sex Assigned At Female [facility] Tobacco smoking status Never [facility] Start: 1945 Sex Assigned At Female F [facility] Functional Status Date Assessment Result Facility 01-15-2024 Functional Status N/A [facility] 02-20-2023 Functional Status N/A [facility] 08-22-2022 Functional Status N/A [facility] Clinical Notes 12-05-2021 to 04-10-2024 Note Date [...] Signed, Electronically Signed in Other Vendor System) [facility] 04-10-2024 Note Procedure: MRI of th [...] Signed, Electronically Signed in Other Vendor System) [facility] 01-15-2024 Evaluation + Plan note Diagnostic Tests PendingUrine Culture 01/15/24 [facility] 01-15-2024 Hospital Discharg e instructions [...] provider. Document Revised: 11/09/2021 Document Reviewed: 11/09/2021 [employer] Patient Education 2022 A vida é feita de [place]. Follow Up Care 02/20/2023 12:02:25 With:Gage JACOB, KEKE Carrera, URO Address: [address] [place] [address] [phone] When: Unknown [facility] 01-15-2024 Note Patient Education Obstetrics and Gynecology [...] provider. Document Revised: 11/09/2021 Document Reviewed: 11/09/2021 [employer] Patient Education ? 2022 A vida é feita de [place]. [facility] 07-30-2023 Evaluation note Encounter Date Diagnosis Assessment Notes Jul, Acute non-recurrent maxillary sinusitis (ICD-10 - J01.00) [facility] Other 08-09-2023 Hospital Discharge instructions Patient Education 02/20/2023 09:58:29 Urinary Tract Infection, Adult, Hprk-zr-Lxaz Urinary Tract Infection, Adult A urinary tract [...] Follow these instructions at home: Medicines Take xtxv-tzm-yjgyqut and prescription medicines only as told by [...] provider. Document Revised: 02/10/2021 Document Reviewed: 02/10/2021 [employer] Patient Education 2022 A vida é feita de [place]. Follow Up Care 08/22/2022 12:56:32 With:Gage JACOB, KEKE Carrera, URO Address: When:Within 1 Year(s) [facility] 02-08-2023 Hospital Discharge instructions Patient Education 08/22/2022 [...] 06/17/2013 Document Revised: 02/18/2019 Document Reviewed: 02/18/2019 [employer] Patient Education 2020 [employer] Monitoring Follow Up Care 06/13/2022 11:42:12 With:Gage JACOB, KEKE Carrera, URO Address: When: Unknown [facility] 05-24-2022 Hospital Discharge instructions Patient Education 12/05/2021 [...] provider gives to you. In general: Take mwle-ivt-ypcksmh and prescription medicines only as told by [...] 01/26/2015 Document Revised: 08/07/2018 Document Reviewed: 08/07/2018 [employer] Patient Education 2020 A vida é feita de [place]. Follow Up Care 06/07/2021 13:20:37 With:Shahid Ontiveros MD, Mally Mendiola, URO Address: [facility] [address], [place] [address]- When: Unknown [facility] evaluation + Plan note No data available for this section [facility] evaluation + Plan note Future Appointments Appointment Date:02/20/2023 10:45:00 AM Scheduled Provider:Katie Almonte MD Location:[facility] Appointment Type:URO Office Visit [facility] evaluation + Plan note Future Appointments Appointment Date:02/26/2024 10:45:00 AM Scheduled Provider:Katie Almonte MD Location:[facility] Appointment Type:URO Office Visit [facility] evaloxfwws noteNo InformationNort Triviala Other evaluation note* Diagnosis Onset Date Resolution Status Menopausal and postmenopausal disorder acute Screening mammogram for breast cancer acute [facility] Work Phone: Evaluation noteNo assessment information available [facility] Work Phone: Evaluation note* Diagnosis Onset Date Resolution Status Preoperative examination acu te Right leg pain acute [facility] Work Phone: History general Narrative - Reported* [...] ABOVE SURGERY Hospitalization History CHILD X'S 2 [facility] Other Hospital Discharge instructions No data available for this section [facility] No data available for this section [facility] Summary Purpose Family History Relationship Condition Age at Onset Recorded Date/T radha father Unknown mother Unknown Advance Directives Advance Directive Response Recorded Date/ Time Advance Directives No January 23 10:46am Chief Complaint and Reason for Visit Chief Complaint wellness Reason for Visit Menopausal and postm enopausal disorder Screening mammogram for breast cancer Chief Complaint Pre-surgical Clearan ce Chief Complaint Pre-surgical Clearan ce Amb Documentation [facility] f/u lower extremity pain CC Adult Risk Stratification Reason for Visit Preoperative examina tion Right leg pain Additional Source Comments INFORMATION SOURCE (unrecogn ized section and content) DATE CREATED AUTHOR 08/02/2022 [facility] DATE CREATED AUTHOR AUTHOR'S ORGANIZ ATION 01/16/2024 [facility] DATE CREATED AUTHOR AUTHOR'S ORGANIZ ATION 01/19/2024 [facility] DATE CREATED AUTHOR AUTHOR'S ORGANIZ ATION 04/11/2024 [facility] Patient Care team informatio n (unrecognized [...] April 29, 2024 End: April 29, 2024 Team Status: Active Member Role Status Dates Hafsa Knowles MD Primary Care Provider Active Start: May 01, 2024 Johny Perdomo DO Attending Provider Active S tart: May 01, 2024 Team Status: Active Member Role Status Dates Hafsa Knowles MD Primary Care Provider Active Start: 2024 Jenniffer Luna CMA Attending Provider Active Start: 2024 Team Status: Inactive Member Role Status Dates Hafsa Knowles MD Primary Care Provide r, Attending Provider Active Start: May 07, 2024 End: May 07, 2024 Team Status: Active Member Role Status Dates Hafsa Knowles MD Primary Care Provide r, Attending Provider Active Start: May 07, 2024 REASON FOR VISIT (unrecogniz ed section [...] BE BASED ON THE PRIMARY CLINICAL RECORDS. [employer] provides no warranty or guarantee of the accuracy or completeness of information in this document.
== END 2024-05-07 16:16 | disposition home or self-care (01) ==
LOC: LAB 16:16
PROVIDERS: PCP Family Medicine; Visit Provider Family Medicine
DX: M79.604 Pain in right leg (principal); R60.0 Localized edema
CPT/HCPCS: 73590; 93971

== ENCOUNTER 2024-06-16 09:45 | Outpatient (OUT) | payer MEDICARE, OTHER, SELFPAY ==
--- NOTE | 2024-06-16 07:32 | V.VEINS.HP ---
Vital Signs 06/16/24 10:06 06/16/24 10:07 Weight 92 kg BP 138/68 BP Location Left Brachial BP Position Sitting BP Cuff Size Adult BP Source Manual Cuff Respiration 18 Pulse 75 Pulse Source Monitor Pulse Oximetry (%) 96 Oxygen Delivery Method Room Air Comment The patient's blood pressure is elevated. Varicose Veins Patient in this day for comprehensive evaluation for bilateral painful varicose veins. Referred by Dr. Hafsa Browning for superficial thrombophlebitis of right leg. RLE edema noted with lower leg discoloration. Started 8-12 weeks ago with spontaneous skin sore on mid medial calf area that initially was open but now is closed. Patient has been on oral steroids and antibiotics without improvement of symptoms other than the closed sore. She has been wearing compression stockings for the past 3 months. Quentin Michel MD personally performed the services described in this documentation, as scribed by Hilda Reyes RN in my presence and it is both accurate and complete. IHilda RN, am scribing for, and in the presence of, Dr. Quentin Hernandez and in the presence of the patient. thigh: bilateral, knee: bilateral, calf: bilateral, ankle: bilateral and anderson: bilateral aching, sharp and tender 3 8 weeks Worsened in recent months: Yes standing analgesics, elevating extremities and compression stockings Reports erythema, bruising, heaviness, limb pain, edema and leg edema History of lower extremity trauma: No Superficial thrombophlebitis: Yes Family history of varicose veins: yes Has patient had previous lower extremity venous surgery: No Patient has previously received the following treatment(s) for lower extremity varicose veins: Reports none Does patient have a history of : yes Does patient intend to have future pregnancies: no Has patient had lower extremity venous scan with relux testing: Yes Support hose used: Yes Problems walking or doing physical activity: Yes How does it affect you: Unable to stand for long periods of time Do you walk much: Yes Do you stand much: Yes Review of Systems ROS Narrative Quentin Michel MD personally performed the services described in this documentation, as scribed by Hilda Reyes RN in my presence and it is both accurate and complete. Hilda Michel RN, am scribing for, and in the presence of, Dr. Quentin Hernandez and in the presence of the patient. Status of ROS 10 or more systems reviewed and unremarkable except as noted in history and below Cardiovascular Reports: edema and swelling of feet/ankles Musculoskeletal Reports: extremity pain, extremity swelling, joint pain, joint swelling and muscle cramps Integumentary/Breast Reports: itching, redness, skin pain, skin tenderness, skin swelling and sores [facility] Medical History (Updated 06/16/24 @ 12:51 by Hilda Reyes RN) Pain due to varicose veins of both lower extremities ?I83.813 - Varicose veins of bilateral lower extremities with pain (ICD-10) Raynaud disease ?I73.00 - Raynaud's syndrome without gangrene (ICD-10) Arthritis ?M19.90 - Unspecified osteoarthritis, unspecified site (ICD-10) History of ITP (1989) ?Z86.2 - Personal history of diseases of the blood and blood-forming organs and certain disorders involving the immune mechanism (ICD-10) History of blood transfusion ?Z92.89 - Personal history of other medical treatment (ICD-10) Thyroid cyst ?E04.1 - Nontoxic single thyroid nodule (ICD-10) Phlebitis ?I80.9 - Phlebitis and thrombophlebitis of unspecified site (ICD-10) Varicose vein of leg ?I83.90 - Asymptomatic varicose veins of unspecified lower extremity (ICD-10) Knee pain ?M25.569 - Pain in unspecified knee (ICD-10) Seasonal allergic rhinitis ?J30.2 - Other seasonal allergic rhinitis (ICD-10) Cataracts, bilateral ?H26.9 - Unspecified cataract (ICD-10) Hyperparathyroidism ?E21.3 - Hyperparathyroidism, unspecified (ICD-10) Renal cyst ?N28.1 - Cyst of kidney, acquired (ICD-10) Osteopenia ?M85.80 - Other specified disorders of bone density and structure, unspecified site (ICD-10) Vitamin D deficiency ?E55.9 - Vitamin D deficiency, unspecified (ICD-10) Chronic UTI ?N39.0 - Urinary tract infection, site not specified (ICD-10) Genu varum of right lower extremity ?M21.161 - Varus deformity, not elsewhere classified, right knee (ICD-10) Primary osteoarthritis of right knee ?M17.11 - Unilateral primary osteoarthritis, right knee (ICD-10) Surgical History (Updated 05/01/24 @ 08:42 by Francesca Zavala NP) History of colonoscopy ?Z98.890 - Other specified postprocedural states (ICD-10) H/O knee surgery ?Z98.890 - Other specified postprocedural states (ICD-10) H/O breast biopsy ?Z98.890 - Other specified postprocedural states (ICD-10) History of cholecystectomy ?Z90.49 - Acquired absence of other specified parts of digestive tract (ICD-10) H/O oophorectomy H/O parathyroidectomy ?Z98.890 - Other specified postprocedural states (ICD-10) ?Z90.89 - Acquired absence of other organs (ICD-10) History of hysterectomy ?Z90.710 - Acquired absence of both cervix and uterus (ICD-10) H/O tubal ligation ?Z98.51 - Tubal ligation status (ICD-10) H/O splenectomy (1989) ?Z90.81 - Acquired absence of spleen (ICD-10) S/P arthroscopic knee surgery ?Z98.890 - Other specified postprocedural states (ICD-10) Family History (Updated 06/16/24 @ 10:21 by Hilda Reyes RN) Mother Varicose veins of bilateral lower extremities with pain Father Family history of myocardial infarction Other Cancer Family history of DVT Family history of cancer Social History (Updated 05/01/24 @ 08:31 by Francesca Zavala NP) Within the past year, how often did you have a drink containing alcohol: never Score interpretation: A score less than 3 is consistent with normal alcohol consumption. 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 Highest level of school completed/degree received: some college, no degree Little interest or pleasure in doing things: not at all Feeling down, depressed, or hopeless: not at all Meds Home Medications and Allergies Home Medications ?Medication ?Instructions ?Recorded ?Confirmed ?Type biotin 5 mg capsule 5 mg PO DAILY 05/01/24 06/16/24 History cholecalciferol (vitamin D3) 125 125 mcg PO DAILY 05/01/24 06/16/24 History mcg (5,000 unit) capsule cranberry 500 mg capsule 500 mg PO DAILY 05/01/24 06/16/24 History d-mannose 500 mg capsule mg PO 05/01/24 History estradiol 0.01% (0.1 mg/gram) 0.5 appful vaginal .twice a week 05/01/24 06/16/24 History vaginal cream loratadine 10 mg capsule 10 mg PO DAILY 05/01/24 06/16/24 History [id number]-[id number] 30 mg-folic cap PO 06/16/24 History acid 1 mg-dss 50 mg-dha 260 mg capsule Allergies Allergy/AdvReac Type Severity Reaction Status Date / Time codeine AdvReac Nausea Verified 05/01/24 08:26 Exam Narrative Exam Narrative: Quentin Michel MD personally performed the services described in this documentation, as scribed by Hilda Reyes RN in my presence and it is both accurate and complete. IHilda RN, am scribing for, and in the presence of, Dr. Quentin Hernandez and in the presence of the patient. Constitutional Documenting provider has reviewed patient's vital signs: yes Common normals: oriented x3 Nutritional appearance: overweight Lymph Lymphatic: no lymphedema noted Cardio Peripheral pulses: posterior tibial pulses present and dorsalis pedis pulses present Extremity General: calf tenderness, edema and other findings Right lower extremity: lower leg Right lower leg: inspection and palpation Left lower extremity: lower leg Left lower leg: inspection and palpation Other: Right mid medial calf healed wound 1.0x1.5cm Neuro Common normals: oriented x3 Assessment and Plan Assessment and Plan (1) Pain due to varicose veins of both lower extremities: Plan Explained vein anatomy and physiology to patient. Explained the development of varicose veins to patient.? Explained varicose vein treatments to patient, including laser ablation, microfoam chemical ablation (Varithena), injection sclerotherapy and microphlebectomy.? Explained potential risks and benefits of varicose vein treatments.? Patient verbalizes understanding and wants to pursue varicose vein treatment.? Dr. Hernandez examines patient and reviews results of bilateral leg reflux u/s.? Patient and Dr. Hernandez creates a plan of care.? Patient also agrees to purchase bilateral thigh high compression stockings and wear them as educated.? Patient also educated on exercise and rest elevation of bilateral legs. Plan is bilateral EVLT's, bilateral Varithena, and bilateral sclerotherapy. Scheduled for first EVLT of left AASV on 06/26/24. Quentin Michel MD personally performed the services described in this documentation, as scribed by iHlda Reyes RN in my presence and it is both accurate and complete. I, Hilda Reyes RN, am scribing for, and in the presence of, Dr. Quentin Hernandez and in the presence of the patient.
--- NOTE | 2024-06-16 07:34 | W.VEIN ---
Discharge Plan Discharge Disposition: Home, Self-Care Outpatient Diagnostics: VC Endovenous Ablation 1VeinRT (Routine) Timeframe: 3 Weeks Facility: [facility] - Location: [facility] Ordered By: Quentin Hernandez Follow Up Appointments: 06/26/24 Print Language: Armenian
--- NOTE | 2024-06-16 09:46 | VEIN_ITS ---
Patient Name: BHAVESH MONTEIRO MR#: [id number] : 1945 Exam Date: 06/16/2024 Ordering Doctor: DR Hafsa Browning M.D. RADIOLOGY REPORT PROCEDURE: VC EXT VENOUS REFLUX HAYDEE LMTD COMPARISON: None. INDICATIONS: I83.813 Bilateral painful varicose veins TECHNIQUE: Duplex imaging of the lower extremity to assess the deep and superficial venous system for the presence of deep or superficial venous incompetence and to document the location and severity of disease. The study includes evaluation of the great saphenous vein (GSV), anterior accessory saphenous vein (AASV) and small saphenous vein (SSV). Patient scanned in reverse Trendelenburg and standing. FINDINGS: RIGHT LOWER EXTREMITY: Saphenofemoral Junction Reflux: Yes 12.4mm 4.1 sec GSV: Diam (mm) Reflux/ Time (sec) Proximal Thigh 9.9 Yes 3.8 Mid Thigh 8.4 Yes 2.5 Distal Thigh 6.9 Yes 3.8 Prox Calf 7.4 Yes 3.2 Mid Calf 2.2 No Saphenopopliteal Junction Reflux: 3.8mm No SSV: Proximal Calf 3.9 Yes 1.2 Mid Calf 3.6 No AASV: Proximal Thigh 7.1 Yes 4.8 Mid Thigh 6.4 Yes 1.5 Distal Thigh Thrombi: Non compressible varicose veins at mid/med calf. Compressibility: Normal Flow: Normal Preforator: Dist/med calf 10.1mm with 1.9s reflux. Prox/med calf 4.6mm with 1.5s reflux. Tech Note: Incompetent GSV and AASV. Patent varicose vein mid/med calf 9.5mm with 2.4s reflux. Patent varicose vein 4.0mm with 1.3s reflux. Patent varicose vein mid/med thigh 7.9mm with 3.6s reflux. LEFT LOWER EXTREMITY: Saphenofemoral Junction Reflux: Yes 11.6 mm 2.3 sec GSV: Diam (mm) Reflux/Time (sec) Proximal Thigh 4.6 Yes 1.3 Mid Thigh 3.7 Yes 1.7 Distal Thigh 3.3 Yes 0.5 Prox Calf 3.3 No Mid Calf 3.6 Yes 3.2 Saphenopopliteal Junction Relux: 3.8 mm Yes 1.4 SSV: Proximal Calf 3.4 No Mid Calf 4.3 Yes 0.8 AASV: Proximal Thigh 16.7 Yes 2.8 Mid Thigh 11.9 Yes 2.5 Distal Thigh Thrombi: No acute or chronic thrombus visualized Compressibility: Normal Flow: Normal Sales Receptionist: Dist/med calf 6.5mm with 1.8s reflux. Tech Note: Incompetent AASV. Patent varicose vein dist/med calf 5.0mm with 1.9s reflux. Patent varicose vein dist/lat calf 6.4mm with 3.0s reflux. Patent varicose vein mid/lat thigh 11.4mm with 2.5s reflux. Patent varicose vein prox/lat thigh 12.9mm with 3.2s reflux. CONCLUSION: 1. Severe bilateral great saphenous vein venous insufficiency with saphenofemoral junction reflux and dilatation 2. Severe bilateral anterior accessory saphenous venous insufficiency with dilatation 3. Mild bilateral small saphenous vein venous insufficiency 4. Bilateral incompetent perforating veins 5. Bilateral incompetent varicose veins Dictated by: Quentin Hernandez MD on 06/16/2024 at 11:22 Approved by: Quentin Hernandez MD on 06/16/2024 at 11:26
--- NOTE | 2024-06-16 09:46 | VEIN_ITS ---
Patient Name: BHAVESH MONTEIRO MR#: [id number] : 1945 Exam Date: 06/16/2024 Ordering Doctor: DR Hafsa Browning M.D. RADIOLOGY REPORT PROCEDURE: [facility] - OFFICE VISIT INITIAL COMPARISON: None. PROGRESS NOTES: 79-year-old female who presents with a long history of lower extremity pain swelling and varicose veins pulmonary aiding in multiple spontaneous ulcerations and episodes of superficial thrombophlebitis. The patient was referred to [facility] where she was seen 3 times with no treatments. The patient comes to our vein practice from Dr. Henderson office. The patient's symptoms are progressed with prolonged sitting and standing and are only partially relieved by rest, leg elevation and compression stockings which she has worn for approximately 3 months. Six The patient denies any signs and symptoms to suggest arterial ischemia. The patient describes a family history significant for varicose veins in her mother. Myocardial infarction in her father. Cancer and DVT history and other family members. Patient does not drink alcohol. The patient has never smoked. No substance abuse use. The patient has had multiple episodes of right leg superficial thrombophlebitis but no deep vein thrombus See separate history and physical for medication list. No prior treatment for varicose or spider veins. Past medical history significant for Raynaud's, arthritis, thyroid cysts, phlebitis, varicose veins and knee pain. After review of nurse notes, history and physical exam I discussed at length the pathophysiology of venous hypertension and possible treatments, therapies and strategies available. We discussed at length the importance of elevating the lower extremities above the level of the heart, increased physical activity and compression stocking use. We discussed conservative treatment with compression stockings and exercise. We discussed surgical interventions including ligation and stripping and phlebectomy. We discussed intravenous laser ablation, micro foam chemical ablation and injection sclerotherapy. Risks benefits and alternatives were discussed with the patient's questions were answered. Ultrasound venous reflux study performed the same day was discussed at length with the patient. The report demonstrates severe bilateral great saphenous vein, severe bilateral anterior accessory saphenous vein and mild bilateral small saphenous vein venous insufficiency. Bilateral incompetent perforating veins. Extensive bilateral incompetent varicose veins PHYSICAL EXAM: The right leg demonstrates multiple areas of erythema with thrombosed varicose veins consistent with her known thrombophlebitis along the medial and anterior lower leg. Multiple additional dilated varicose veins are noted. Extensive reticular and spider veins throughout the thigh lower leg ankle and foot of ulceration. Mild to moderate hemosiderin staining The left leg demonstrates moderate to large extensive varicosities throughout the leg lower leg and ankle. Moderate diffuse reticular and spider veins. Hemosiderin staining. No active ulceration Both thighs, legs and feet were symmetrically warm to the touch. Good posterior tibial and dorsalis pedis pulses were present bilaterally. VEIN/VC Facility EST Comprehensive IMPRESSION: 1. Severe bilateral great and severe bilateral anterior accessory saphenous vein venous insufficiency with dilatation and dilation . Bilateral incompetent perforating vein 2. Extensive bilateral incompetent lower extremity varicose veins 3. Mild bilateral lower extremity subcutaneous edema 4. No definite flow significant arterial disease 5. CEAP: C4a, Ep, Asp, Pr PLAN: 1. Endovenous laser ablation left anterior accessory saphenous vein followed by right great saphenous vein followed by left great saphenous vein followed by right anterior accessory saphenous vein with possible treatment of the incompetent perforating veins 2. Bilateral micro foam chemical ablation of incompetent varicose veins 3. Injection sclerotherapy of reticular and spider veins 4. Long-term use of bilateral compression stockings 5. Increase in physical activity for symptomatic relief Nurse notes, history and physical were reviewed and confirmed, see attached forms. The nurse was present throughout the physical exam and consultation Dictated by: Quentin Hernandez MD on 06/16/2024 at 13:01 Approved by: Quentin Hernandez MD on 06/16/2024 at 13:48
--- OUTSIDE RECORDS SUMMARY | 2024-06-16 10:01 | XMS_ITS | CCD ---
Author Organization [facility] Care Team Providers Care Master Automotive Technician Name Role Phone HAFSA KNOWLES Primary Care Physician SAMUEL, DR ANTWON Sharma Admitting Unavailparadise BAKER, DR ANTWON Sharma Attending Unavailparadise KNOWLES, DR HAFSA Sharma Primary Care Unavailable SAMUEL, DR ANTWON Sharma Consulting UnavailEMILEE Trimble Consulting Unavailable BETZY HAMILTON Consulting Unavailable SHAHID ORTEGA, DR MALLY Mendiola Admitting Unavailparadise KEY JR, DR MALLY Menidola Attending Unavailparadise KNOWLES, DR HAFSA Sharma Primary Care Unavailable SHAHRIAR, DR DARIO Duarte Consulting Unavailable SHAHID ORTEGA, DR MALLY Mendiola Consulting Unavailparadise KNOWLES, DR HAFSA Sharma Admitting Unavailable BENSON, DR HAFSA Sharma Attending Unavailable BENSON, DR [...] Perdomo DO Attending UnavailJohny Wallace DO Attending Hafsa Stoner MD Primary Care Hafsa Lan MD Primary Care Provider [phone] ZAIDA CHILD Attending HAFSA Salas Referring HAFSA Salas Primary Care Unavailable Allergies Allergy Classification Reported Allergen(s) Allergy Type Date of Onset Reaction(s) Facility (16 sources) Codeine; Translations: [codeine] Drug Allergy 12-26-19 16 Nausea [facility] (1 source) Codeine Drug Allergy [facility] (2 sources) Acetaminophen / HYDROcodone Drug Allergy Unknown [facility] Other (2 sources) Codeine Drug Allergy Unknown [facility] Other (2 sources) patient allergy list reviewed by nurse or physicia Propensity to adverse reactions 04-29-20 15 Comment:Done [facility] Other (2 sources) Allergies Reconciled Propensity to adverse reactions Unknown [facility] Other (4 sources) Acetaminophen Drug Allergy 01-24-20 [facility] (4 sources) HYDROcodone Drug Allergy 01-24-20 [facility] Medications Current Medications Medication Drug Class(es) Dates Sig (Normalized) Sig (Original) acetaminophen 325 mg oral tablet (3 sources) acetaminophen (TYLENOL) 325 mg tablet Take by mouth. Active biotin 5 mg oral capsule (14 sources) Start: 01-21-2024 take 5 mg by mouth once daily Biotin Active 5 MG PO Daily January 20, 2024 11:00pm Start: 10-25-2020 biotin 5000 mc g oral capsule Refills(s) 0 Start Date: 10/25/20 Status: Ordered biotin 1 mg caps ule Take by mouth. Active take 1 capsule by mo [facility] once daily Biotin 5000 5 MG 1 capsule Orally Once a day Active cholecalciferol 0.025 mg oral capsule (7 sources) Vitamin D Start: 01-21-2024 take 25 ug by mouth once daily Cholecalciferol (Vitamin D3) Active 25 MCG PO Daily January 20, 2024 11:00pm take 1 tablet by mouth in the mo rning cholecalciferol, vitamin D3, 5,000 units tablet Take 1 tablet (5,000 Units total) by mouth in the morning. Active ciprofloxacin 500 mg oral tablet (2 sources) Quinolone Antimicrobial Start: 07-23-2023 take 1 tablet by mouth every twelve hours Ciprofloxacin HCl 500 MG 1 tablet Orally every 12 hrs for 7 days Jul, Active cranberry preparation 500 mg oral capsule (3 sources) Non-Standardized Food Allergenic Extract, Non-Standardized Plant Allergenic Extract cranberry 500 mg capsule Take by mouth. Active estradiol 0.1 mg/ml vaginal cream (8 sources) Estrogen Start: 01-24-2024 Estradiol (Estrace) 0.01 % (0.1 mg/gram) cream Active 1 APPLICATOR VAGINAL Daily January 23, 2024 11:00pm for 14 days Start: 01-15-2024 Estrace 0.1 mg /g Cream See Instructions, 42.5 gm, Refill(s) 6, Apply pea-sized amound around the opening of the urethra 3 times per week for 1 month then 2 times per week after for maintenance., [facility], 168, cm, 01/15/24 10:54:00 EDT, Height/Length Dosing, 96, kg, 01/15/24 10:54:00 EDT, Weight Dosing Start Date: 01/15/24 Status: Ordered Start: 08-22-2022 Estrace 0.1 mg /g Cream See Instructions, 42.5 gm, Refill(s) 6, Apply pea-sized amound around the opening of the urethra 3 times per week for 1 month then 2 times per week after for maintenance., [employer] [facility], 168, cm, 08/22/22 11:52:00 EST, Height/Length Dosin... Start Date: 08/22/22 Status: Ordered fexofenadine hydrochloride 60 mg oral tablet (12 sources) Histamine-1 Receptor Antagonist Start: 01-24-2024 take 1 tablet by mouth twice daily Fexofenadine (Mary Allergy) 60 mg tablet Active 60 MG PO Twice daily January 23, 2024 11:00pm Start: 10-25-2020 fexofenadine ( MARY) 180 mg tablet Take by mouth. 10/25/2020 Active Start: 10-25-2020 Mary Oral, Refills(s) 0 Start Date: 10/25/20 Status: Ordered ibuprofen 400 mg oral tablet (3 sources) Nonsteroidal Anti-inflammatory Drug take 1 tablet by mouth every six hours as needed for pain ibuprofen (MOTRIN) 400 mg tablet Take 1 tablet (400 mg total) by mouth every 6 (six) hours as needed for pain. Active loratadine 10 mg oral tablet (3 sources) take 1 tablet by mouth in the morning loratadine (CLARITIN) 10 mg tablet Take 1 tablet (10 mg total) by mouth in the morning. Active naproxen 500 mg oral tablet (1 source) Nonsteroidal Anti-inflammatory Drug Start: take 500 mg by mouth twice daily Naproxen Active 500 MG PO Twice daily May 07, 2024 11:00pm nitrofurantoin, macrocrystals 50 mg oral capsule (11 sources) Nitrofuran Antibacterial Start: take 1 capsule by mouth once daily at mealtime Nitrofurantoin Macrocrystal Active 0 .ROUTE .COMPLEX March 24, 2024 7:39am TAKE 1 CAPSULE BY MOUTH ONCE DAILY * TAKE WITH FOOD or a meal* Start: 01-24-2024 End: 03-24-2024 take 50 mg by mouth once daily at mealtime Nitrofurantoin Macrocrystal Discontinued 50 MG PO Daily January 24, 2024 10:34am March 24, 2024 7:39am must administer with a meal/food Start: 01-24-2024 End: 01-24-2024 take 100 mg by mouth twice daily at mealtime Nitrofurantoin Macrocrystal Discontinued 100 MG PO Twice daily January 23, 2024 11:00pm January 24, 2024 10:35am must administer with a meal/food predniSONE 20 mg oral tablet (1 source) Start: 05-19-2024 take 20 mg by mouth twice daily Prednisone Active 20 MG PO Twice daily May 19, 2024 12:00am sod sulf-pot chloride-mag sulf 1.479-0.188- 0.225 gram tablet (6 sources) Start: 07-24-2022 sod sulf-pot chloride-mag sulf 1.479-0.188- 0.225 gram tablet Indications: Left upper quadrant abdominal pain , Abnormal computed tomography of large intestine PATIENT TO USE $50 COUPON VOUCHER GIVEN BY OFFICE, DO NOT RUN THRU INSURANCE 24 tablet 07/24/2022 Active Start: 07-18-2022 sod sulf-pot c hloride-mag sulf 1.479-0.188- 0.225 gram tablet See instructional sheet given by office. Patient was given a [employer] coupon voucher to use, this is not to be ran through patients insurance. 24 tablet 07/18/2022 Active sulfamethoxazole 800 mg / trimethoprim 160 mg oral tablet (3 sources) Dihydrofolate Reductase Inhibitor Antibacterial, Sulfonamide Antimicrobial Start: 05-08-2024 take 1 tablet by mouth twice daily Sulfamethoxazole-Trimethoprim Active 1 TAB PO Twice daily May 07, 2024 11:00pm Start: 06-25-2023 take 1 tablet by [facility] every twelve hours Bactrim DS 800-160 MG 1 tablet Orally Twice a day for 10 day(s) Jun, Active Vitamin D-3 1000 UNIT (2 sources) take 1 capsule by [facility] once daily Vitamin D-3 1000 UNIT 1 capsule Orally Once a day Active Completed/Discontinued Medications Medication Drug Class(es) Dates Sig (Normalized) Sig (Original) cephalexin 500 mg oral capsule (5 sources) Cephalosporin Antibacterial Start: 05-05-2024 End: 05-08-2024 take 500 mg by mouth three times daily Cephalexin Discontinued 500 MG PO Three times daily May 06, 2024 11:00pm May 08, 2024 2:53pm Start: 12-05-2021 take 1 capsule by [facility] every twelve hours Keflex 500 mg Cap 500 mg = 1 cap(s), Oral, q12hr, # 6 cap(s), Refills(s) 0, Pharmacy: [facility], 168, cm, 12/05/21 10:16:00 EDT, Height/Length Dosing, 97.5, kg, 12/05/21 10:16:00 EDT, Weight Dosing Start Date: 12/05/21 Status: Ordered omeprazole 40 mg delayed release oral capsule (6 sources) Proton Pump Inhibitor Start: 01-21-2024 End: 01-24-2024 take 40 mg by mouth once daily Omeprazole Discontinued 40 MG PO Daily January 20, 2024 11:00pm January 24, 2024 10:02am Start: 09-05-2020 take 1 capsule by [facility] once daily Omeprazole 40 MG Omeprazole 40MG, [...] sources) Biliary calculus; Translations: [Gallstone] 07-09-2019 Episodic Blindness and vision defects (3 sources) Visual impairment; Translations: [Unspecified visual loss] Onset: 3 07-18-2022 Chronic Deficiency and other anemia (5 sources) Anemia 10-25-2020 Episodic Genitourinary congenital anomalies (2 sources) Multiple congenital cysts of kidney; 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, unspecified] Chronic Genitourinary symptoms and ill-defined conditions (14 sources) Urgent desire to urinate; Translations: [Urgency of urination] Onset: 3 Episodic Menopausal disorders (14 sources) Atrophic vaginitis; Translations: [Postmenopausal atrophic vaginitis] Onset: 8 Chronic Nutritional deficiencies (2 sources) Vitamin D deficiency; Translations: [Vitamin D deficiency, unspecified] Chronic Osteoarthritis (8 sources) Arthritis; Translations: [Unspecified osteoarthritis, unspecified site] Onset: 3 10-25-2020 Chronic Other bone disease and musculoskeletal deformities (7 sources) Osteopenia; Translations: [Other specified disorders of bone density and structure, unspecified site] 07-09-2019 Episodic Other circulatory disease (2 sources) Elevated blood-pressure reading without diagnosis of hypertension; Translations: [Elevated blood-pressure reading, without diagnosis of hypertension] Episodic Other connective tissue disease (3 sources) Pain in right lower limb; Translations: [Pain in right leg] 05-07-2024 Episodic Other connective tissue disease (3 sources) Pain in right leg; Translations: [Pain in limb] 05-07-2024 Episodic Other connective tissue disease (1 source) Pain in lower limb Onset: 4 Episodic Other diseases of kidney and ureters (3 sources) Disorder of kidney and/or ureter; Translations: [Other specified disorders of kidney and ureter] Onset: 2 Chronic Other diseases of kidney and ureters (4 sources) Renal mass; Translations: [Other specified disorders of kidney and ureter] Onset: 3 12-05-2021 Chronic Other diseases of kidney and ureters (4 sources) Other specified disorders of kidney and ureter; Translations: [OTHER SPEC DISORDERS KIDNEY URETER] Onset: 2 Chronic Other diseases of kidney and ureters (1 source) Cyst of kidney, acquired; Translations: [CYST OF KIDNEY ACQUIRED] Onset: 2 Episodic Other diseases of kidney and ureters (3 sources) Acquired renal cyst without neoplastic change; Translations: [Cyst of kidney, acquired] Onset: 3 Episodic Other diseases of kidney and ureters (4 sources) Cyst of kidney 08-22-2022 Episodic Other endocrine disorders (7 sources) Hyperparathyroidism; Translations: [Hyperparathyroidism, unspecified] Onset: 7 07-09-2019 Chronic Other endocrine disorders (2 sources) Primary hyperparathyroidism; Translations: [Primary hyperparathyroidism] Chronic Other non-traumatic joint disorders (4 sources) Arthralgia of the lower leg; Translations: [Pain in joint, lower leg] Onset: 8 Episodic Other nutritional; endocrine; and metabolic disorders (2 sources) Obesity; Translations: [Obesity, unspecified] Chronic Other nutritional; endocrine; and metabolic disorders (2 sources) Hypercalcemia; Translations: [Hypercalcemia] Chronic Other screening for suspected conditions (not mental disorders or infectious disease) (7 sources) Elevated liver enzymes level; Translations: [Other specified abnormal findings of blood chemistry] 01-24-2024 Episodic Other upper respiratory disease (2 sources) Allergic rhinitis; Translations: [Allergic rhinitis, unspecified] Onset: 6 Chronic Other upper respiratory infections (2 sources) Chronic sinusitis; Translations: [Chronic sinusitis, unspecified] Chronic Phlebitis; thrombophlebitis and thromboembolism (8 sources) Phlebitis; Translations: [Phlebitis and thrombophlebitis of unspecified site] Onset: 4 05-19-2024 Episodic Thyroid disorders (5 sources) Thyroid nodule 07-09-2019 Chronic Unclassified (1 source) follow up superficial thrombophlebitis venous duplex lwr s Onset: 4 Urinary tract infections (3 sources) Acute cystitis; Translations: [Acute cystitis without hematuria] Onset: 2 Episodic Varicose veins of lower extremity (5 sources) Varicose veins of lower extremity; Translations: [Varicose veins of bilateral lower extremities with pain] Onset: 4 05-28-2024 Episodic Past or Other Problems Problem Classification [...] aPTT Coag (PPP) [Time] 30.5 s 22.3-36.2 [facility] Basophils Auto (Bld) [#/Vol] on 05-01-2024 Basophils (Bld) [#/Vol] 0.0 10 3/uL 0.0-0.1 [facility] Basophils/100 WBC Auto (Bld) on 05-01-2024 Basophils/100 WBC (Bld) 0.7 % 0.2-2.0 [facility] Eosinophils/100 WBC Auto (Bl d)on 05-01-2024 Eosinophils/100 WBC (Bld) 3.8 % 0.9-7.0 [facility] Erythrocyte distribution wid th Auto (RBC) [Ratio]on 05-01-2024 Erythrocyte distribution width (RBC) [Ratio] 14.4 % 11.0-15.0 [facility] Estimated glomerular filtrat ion rate (GFR) non- Americanon 05-01-2024 GFR/1.73 sq M.predicted among non-blacks MDRD (S/P/Bld) [Vol rate/Area] 51 mL/min/{1.73_m2} Low >=60 mL/min/1.73m 2 [facility] Globulin Calc (S) [Mass/Vol] on 05-01-2024 Globulin (S) [Mass/Vol] 4.3 g/dL [facility] Hematocrit Auto (Bld) [Volum e fraction]on 05-01-2024 Hematocrit (Bld) [Volume fraction] 39.1 % 36.0-48.0 [facility] Hemoglobin [Mass/volume] in Bloodon 05-01-2024 Hemoglobin (Bld) [Mass/Vol] 13.1 g/dL 12.0-16.0 [facility] INR in Platelet poor plasma by Coagulation assayon 05-01-2024 INR Coag (PPP) [Relative time] 1.07 {INR} [facility] Comment on above: DESIRED INR:2.0-3.0 CONDITIONS NOT LISTED BELOW2.5-3.5 FOR PROSTHETIC HEART VALVE REPLACEMENT2.5-3.5 RECURRENT THROMBOSIS Laboratory - Chemistry and C hemistry - challengeon 05-01-2024 Bilirubin Ql (U) Negative NEGATIVE [facility] Glucose (U) [Mass/Vol] Negative NEGATIVE [facility] Ketones Ql (U) Negative NEGATIVE [facility] pH (U) 6.0 [pH] 5.0-9.0 [facility] Specific gravity (U) [Rel density] 1.020 1.005-1.025 [facility] Urobilinogen Qn (U) 0.2 {Diana'U}/dL 0.2-1.0 [facility] Albumin [Mass/Vol] 2.9 g/dL Low 3.4-5.0 [facility] ALP [Catalytic activity/Vol] 196 U/L High 46-116 [facility] ALT [Catalytic activity/Vol] 44 U/L 14-59 [facility] AST [Catalytic activity/Vol] 51 U/L High 15-37 [facility] Bilirubin [Mass/Vol] 0.7 mg/dL 0.2-1.0 [facility] Bilirubin.direct [Mass/Vol] 0.2 mg/dL 0.0-0.2 [facility] Calcium [Mass/Vol] 9.1 mg/dL 8.5-10.1 [facility] Chloride [Moles/Vol] 107 mmol/L 98-107 [facility] CO2 [Moles/Vol] 25.8 mmol/L 21.0-32.0 [facility] Creatinine [Mass/Vol] 1.05 mg/dL High 0.55-1.02 [facility] GFR/1.73 sq M.predicted MDRD (S/P/Bld) [Vol rate/Area] mL/min/{1.73_m2} >=60 mL/min/1.73m 2 [facility] Glucose [Mass/Vol] 84 mg/dL 74-106 [facility] Potassium [Moles/Vol] 3.7 mmol/L 3.5-5.1 [facility] Protein [Mass/Vol] 7.2 g/dL 6.4-8.2 [facility] Sodium [Moles/Vol] 143 mmol/L 136-145 [facility] Urea nitrogen [Mass/Vol] 20.0 mg/dL High 7.0-18.0 [facility] Urea nitrogen/Creatinine [Mass ratio] 19.0 mg/mg [facility] Laboratory - Hematology and Cell countson 05-01-2024 Immature granulocytes/100 WBC (Bld) 0.2 % 0.0-0.5 [facility] Laboratory - Specimen inform ationon 05-01-2024 Appearance (U) CLEAR CLEAR [facility] Color (U) YELLOW YELLOW [facility] Laboratory - Urinalysison Leukocyte esterase Test strip Ql (U) Negative NEGATIVE [facility] Nitrite Ql (U) Negative NEGATIVE [facility] Protein Ql (U) Negative NEG/TRACE [facility] Leukocytes [#/volume] correc reji for nucleated erythrocytes in Blood by Automated counon 05-01-2024 WBC corrected for nucl RBC Auto (Bld) [#/Vol] 4.5 10 3/uL 4.0-11.0 [facility] Lymphocytes Auto (Bld) [#/Vo l]on 05-01-2024 Lymphocytes (Bld) [#/Vol] 2.0 10 3/uL 1.2-3.8 [facility] Lymphocytes/100 WBC Auto (Bl d)on 05-01-2024 Lymphocytes/100 WBC (Bld) 43.8 % 20.5-60.0 [facility] MCH Auto (RBC) [Entitic mass ]on 05-01-2024 MCH (RBC) [Entitic mass] 34.5 pg High 26.7-34.0 [facility] MCHC Auto (RBC) [Mass/Vol]on 05-01-2024 MCHC (RBC) [Mass/Vol] 33.5 g/dL 29.9-35.2 [facility] MCV Auto (RBC) [Entitic vol] on 05-01-2024 MCV (RBC) [Entitic vol] 102.9 fL High 81.0-99.0 [facility] Monocytes Auto (Bld) [#/Vol] on 05-01-2024 Monocytes (Bld) [#/Vol] 0.6 10 3/uL 0.3-0.8 [facility] Monocytes/100 WBC Auto (Bld) on 05-01-2024 Monocytes/100 WBC (Bld) 13.8 % High 1.7-12.0 [facility] Neutrophils Auto (Bld) [#/Vo l]on 05-01-2024 Neutrophils (Bld) [#/Vol] 1.7 10 3/uL 1.4-6.5 [facility] Neutrophils/100 WBC Auto (Bl d)on 05-01-2024 Neutrophils/100 WBC (Bld) 37.7 % Low 43.0-75.0 [facility] No Panel Informationon 05-01 Urine Microscopic Review NO [facility] Urine Occult Blood Negative NEGATIVE [facility] Eosinophils # (Auto) 0.2 10 3/uL 0.0-0.7 [facility] Immature Granulocyte # (Auto) 0.01 10 3/uL 0.00-0.03 [facility] No Panel InformationOrdered By: Johny Perdomo on 05-01-2024 MRSA Screening Culture [facility] Platelet mean volume Auto (B ld) [Entitic vol]on 05-01-2024 Platelet mean volume (Bld) [Entitic vol] 12.6 fL 9.5-13.5 [facility] Platelets Auto (Bld) [#/Vol] on 05-01-2024 Platelets (Bld) [#/Vol] 266 10 3/uL 150-450 [facility] Prothrombin time (PT)on 04-14 PT Coag (PPP) [Time] 11.3 s 9.0-11.6 [facility] RBC Auto (Bld) [#/Vol]on RBC (Bld) [#/Vol] 3.80 10 6/uL Low 4.20-5.40 [facility] Serum or plasma albumin/glob ulin mass ratioon 05-01-2024 Albumin/Globulin [Mass ratio] 0.7 {ratio} [facility] Serum or plasma anion gap de terminationon 05-01-2024 Anion gap [Moles/Vol] 13.9 mmol/L [facility] C Urineon 01-19-2024 Bacteria identified Cx Nom [...] Locations R1: This test was performed at: [facility], [address] [place] [address], [facility]- , , [facility] Comment on above: Performed By: #### [id number] #### [facility] [address] [place] [address] Ambulatory Visit Summaryon 0 01-15-2024 Ambulatory Visit Summary Ambulatory Visit Summary CAYETANOCRISTIANGUADALUPE Duarte :1945 Visit Date:01/15/2024 Ambulatory Visit Instructions [...] Following Appointments Follow Up with Gage JACOB, KEKE Carrera, [facility] When: Where: [address] [place] [address] [phone] Medications What How Much When Instructions Unchanged estradiol topical (Estrace 0.1 mg/ g Cream) See instructions Apply pea-sized amound around the opening of the urethra 3 times per week for 1 month then 2 times per week after for maintenance. Pickup at [facility] Unchanged biotin (biotin 5000 mcg oral capsule) Contact prescribing physician if questions or concerns Unchanged cholecalciferol (Vitamin D3 5000 intl units oral capsule) 1 Capsules By Mouth Every day with food Contact prescribing physician if questions or concerns Unchanged fexofenadine (Mary) By Mouth Contact prescribing physician if questions or concerns Pharmacy Information [facility]: [address] [place], [place] [id number] [phone] Allergies codeine (nausea) Problems Ongoing - Any [...] intended to (more content not included)... Normal [facility] Urology Office/Clinic Noteon 01-15-2024 Urology Office/Clinic Note [...] Information Gage JACOB, Katie Arteaga, URL, [facility] [address] [place] [address]- [phone] Additional Instructions: pt's choice on when to [...] Hyperparathyroidism Osteopeni (more content not included)... Normal [facility] Comment on above: Result Comment: Elec tronically Signed By: Katie Almonte MD\.br\Date and Time Signed: 01/15/24 23:28 EDT\.br\Electronically Co-Signed By: Yuliana Olson\.br\Date and Time Co-Signed: 01/15/24 11:27 EDT [place] 02-21-2023 Screens [id number] [facility] Patient Educationon 02-21-20 Patient Education Obstetrics and [...] these instructions at home: Medicines ? Take nsat-exr-exmrvgi and prescription medicines only as told by [...] provider. Document Revised: 02/10/2021 Document Reviewed: 02/10/2021 [employer] Patient Education ? 2022 [employer]. [facility] Urology Office/Clinic Noteon 02-20-2023 Urology [...] medical exam (more content not included)... Normal [facility] Comment on above: Result Comment: Elec tronically Signed By: Katie Almonte MD\.br\Date and Time Signed: 02/20/23 12:03 EDT\.br\Electronically Co-Signed By: Sepideh Perez\.br\Date and Time Co-Signed: 02/20/23 11:49 EDT Covid-19 PCR (CVDTB)on 07-15 SARS-CoV-2 (COVID-19) RNA AZUL+probe Ql (Unsp spec) Not detected Normal NOT DETECTED [facility] Comment on above: Result Comment: This test is not yet approved or cleared by the [place] FDA. When there are no FDA-approved or cleared tests available, and other criteria are met, FDA can make tests available under an emergency access mechanism called an Emergency Use Authorization (EUA). The EUA for this test is supported by the [place] of Health and Human Service's (HHS's) declaration [...] SARS-CoV-2. Performed By: #### C VDTBH #### [facility] [address] [place] [address] Dr. Manjula Arzate CREATININEon 06-13-2022 Creatinine [Mass/Vol] 0.98 mg/dL Normal 0.55-1.02 [facility] Comment on above: Performed By: #### C JESUS #### [facility] [address] [place] [address] Dr. Manjula Arzate EGFR-AF FAROESE >60 Normal >=60 [facility] Comment on above: Performed By: #### C JESUS #### [facility] [address] [place] [address] Dr. Manjula Arzate EGFR-NON AF FAROESE 55 mL/min/1.73m2 Critically low >=60 [facility] Comment on above: Performed By: #### C JESUS #### [facility] [address] [place] [address] ABD/PELV W CONon [...] by: DARIO BESS Date: 2022-06-13 17:40 Normal [facility] CT ABD/PELVIS WO CONon 11-27 [...] by: DARIO BESS Date: 2021-11-27 10:41 Normal [facility] Vital Signs Date Time Vital Sign Value Performing Clinician Facility 06-10-2024 15:24-0500 Body height 167.6 cm Zaida Child MD Work Phone: [facility] 06-10-2024 15:24-0500 Body mass index (BMI) [Ratio] 32.28 kg/m2 Zaida Child MD Work Phone: [facility] 06-10-2024 15:24-0500 Body weight 90.72 kg Zaida Child MD Work Phone: [facility] 06-10-2024 15:24-0500 Diastolic blood pressure 84 mm[Hg] Zaida Child MD Work Phone: [facility] 06-10-2024 15:24-0500 Systolic blood pressure 132 mm[Hg] Zaida Child MD Work Phone: [facility] 05-28-2024 11:08-0500 Body height 167.6 cm Zaida Child MD Work Phone: [facility] 05-28-2024 11:08-0500 Body mass index (BMI) [Ratio] 33.09 kg/m2 Zaida Child MD Work Phone: [facility] 05-28-2024 11:08-0500 Body temperature 97.39 [degF] Zaida Child MD Work Phone: [facility] 05-28-2024 11:08-0500 Body weight 92.99 kg Zaida Child MD Work Phone: [facility] 05-28-2024 11:08-0500 Diastolic blood pressure 84 mm[Hg] Zaida Child MD Work Phone: [facility] 05-28-2024 11:08-0500 Heart rate 72 /min Zaida Child MD Work Phone: [facility] 05-28-2024 11:08-0500 SaO2% (BldA) [Mass fraction] 97 % Zaida Child MD Work Phone: [facility] 05-28-2024 11:08-0500 Systolic blood pressure 146 mm[Hg] Zaida Child MD Work Phone: [facility] 05-19-2024 11:18-0500 Body height 165.1 cm [facility] 05-19-2024 11:18-0500 Body mass index (BMI) [Ratio] 33.1 kg/m2 [facility] 05-19-2024 11:18-0500 Body weight 90.26 kg [facility] 05-19-2024 11:18-0500 Diastolic blood pressure 76 mm[Hg] [facility] 05-19-2024 11:18-0500 Heart rate 91 /min [facility] 05-19-2024 11:18-0500 Systolic blood pressure 114 mm[Hg] [facility] 05-07-2024 14:39-0400 Body height 165.1 cm [facility] 05-07-2024 14:39-0400 Body mass index (BMI) [Ratio] 33.7 kg/m2 [facility] 05-07-2024 14:39-0400 Body weight 92.07 kg [facility] 05-07-2024 14:39-0400 Diastolic blood pressure 79 mm[Hg] [facility] 05-07-2024 14:39-0400 Heart rate 76 /min [facility] 05-07-2024 14:39-0400 Systolic blood pressure 116 mm[Hg] [facility] 04-29-2024 08:21-0400 Body height 165.1 cm [facility] 04-29-2024 08:21-0400 Body mass index (BMI) [Ratio] 33.8 kg/m2 [facility] 04-29-2024 08:21-0400 Body weight 92.3 kg [facility] 04-29-2024 08:21-0400 Diastolic blood pressure 82 mm[Hg] [facility] 04-29-2024 08:21-0400 Heart rate 74 /min [facility] 04-29-2024 08:21-0400 Respiratory rate 16 /min [facility] 04-29-2024 08:21-0400 SaO2% (BldA) [Mass fraction] 96 % [facility] 04-29-2024 08:21-0400 Systolic blood pressure 120 mm[Hg] [facility] 01-24-2024 10:54-0400 Body height 165.1 cm [facility] 01-24-2024 10:54-0400 Body mass index (BMI) [Ratio] 35.6 kg/m2 [facility] 01-24-2024 10:54-0400 Body weight 97.06 kg [facility] 01-24-2024 10:54-0400 Diastolic blood pressure 81 mm[Hg] [facility] 01-24-2024 10:54-0400 Heart rate 71 /min [facility] 01-24-2024 10:54-0400 Systolic blood pressure 121 mm[Hg] [facility] 01-15-2024 10:37-0400 Blood Pressure Location Katie Lue [facility] 01-15-2024 10:37-0400 Body temperature 97.88 [degF] Katie Lue [facility] 01-15-2024 10:37-0400 Diastolic blood pressure 78 mm[Hg] Katie Lue [facility] 01-15-2024 10:37-0400 Heart rate 71 /min Katie Lue [facility] 01-15-2024 10:37-0400 Systolic blood pressure 132 mm[Hg] Katie Lue [facility] 02-20-2023 10:53-0400 Blood Pressure Location Katie Lue [facility] 02-20-2023 10:53-0400 Diastolic blood pressure 76 mm[Hg] Katie Lue [facility] 02-20-2023 10:53-0400 Heart rate 68 /min Katie Lue [facility] 02-20-2023 10:53-0400 Respiratory rate 16 /min Katie Lue [facility] 02-20-2023 10:53-0400 Systolic blood pressure 130 mm[Hg] Katie Lue [facility] 08-22-2022 11:50-0500 Blood Pressure Location Katie Lue [facility] 08-22-2022 11:50-0500 Diastolic blood pressure 78 mm[Hg] Katie Lue [facility] 08-22-2022 11:50-0500 Heart rate 68 /min Katie Lue [facility] 08-22-2022 11:50-0500 Respiratory rate 16 /min Katie Lue [facility] 08-22-2022 11:50-0500 Systolic blood pressure 132 mm[Hg] Katie Lue [facility] 12-05-2021 10:33-0400 Diastolic blood pressure 81 mm[Hg] Mally Key Jr. [facility] 12-05-2021 10:33-0400 Mean blood pressure 101 mm[Hg] Mally Key Jr. [facility] 12-05-2021 10:33-0400 Systolic blood pressure 142 mm[Hg] Mally Key Jr. [facility] 12-05-2021 10:12-0400 Blood Pressure Location Mally Key Jr. [facility] 12-05-2021 10:12-0400 Diastolic blood pressure 97 mm[Hg] Mally Key Jr. [facility] 12-05-2021 10:12-0400 Heart rate 87 /min Mally Key Jr. [facility] 12-05-2021 10:12-0400 Respiratory rate 16 /min Mally Key Jr. [facility] 12-05-2021 10:12-0400 Systolic blood pressure 163 mm[Hg] Mally Key Jr. [facility] Encounters Encounter Date Encounter Type Care Provider Facility Start: 06-10-2024 End: 06-10-2024 Office outpatient visit 15 minutes Zaida Child MD Work Phone: [facility] Comment on above: Superficial phlebiti s and thrombophlebitis of right lower extremity (Primary Dx); Varicose veins of bilateral lower extremities with pain Start: 06-10-2024 End: 06-10-2024 ambulatory [facility] Start: 06-03-2024 End: 06-04-2024 Orders Only Rosanne Merrill LPN [facility] Start: 05-28-2024 End: 05-28-2024 Office outpatient new 30 minutes Zaida Child MD Work Phone: [facility] Comment on above: Superficial phlebiti s and thrombophlebitis of right lower extremity (Primary Dx); Right leg pain; Phlebitis and thrombophlebitis of unspecified site; Varicose veins of bilateral lower extremities with pain Start: 05-19-2024 End: 05-19-2024 ambulatory [facility] Work Phone: Start: 05-19-2024 End: 05-19-2024 Patient encounter procedure [facility] Work Phone: Start: 05-07-2024 Non-patient / Non-visit [facility] Work Phone: Start: 05-07-2024 End: 05-07-2024 ambulatory [facility] Work Phone: Start: 05-07-2024 End: 05-07-2024 Patient encounter procedure [facility] Work Phone: Start: 2024 Non-patient / Non-visit [facility] Work Phone: Start: 05-01-2024 Patient encounter status [facility] Start: 05-01-2024 Non-patient / Non-visit [facility] Work Phone: Start: 04-29-2024 End: 04-29-2024 ambulatory [facility] Work Phone: Start: 04-29-2024 End: 04-29-2024 [facility] Work Phone: Start: 04-10-2024 End: 04-10-2024 ambulatory Johny Ray Perdomo DO Facility:[facility] Start: 03-20-2024 ambulatory Johnytae willis DO Facility:[facility] Start: 02-05-2024 Patient encounter procedure [facility] Start: 01-24-2024 End: 01-24-2024 ambulatory [facility] Work Phone: Start: 01-24-2024 End: 01-24-2024 [facility] Work Phone: Start: 01-15-2024 End: 01-15-2024 ambulatory Katie Josée Facility:[facility] Start: 01-15-2024 End: 01-15-2024 Lab Drop off Katie Josée [facility] Start: 01-15-2024 End: 01-15-2024 ambulatory Katie M. Lue Facility:[facility] Start: 01-15-2024 End: 01-15-2024 Patient encounter procedure Katie MPadilla Josée [facility] Start: 08-01-2023 End: 08-01-2023 ambulatory Hafsa Knowles Other [facility] Other Start: 08-01-2023 Telephone encounter Hafsa Benson [facility] Start: 07-30-2023 End: 07-30-2023 ambulatory Hafsa Benson Other [facility] Other Start: 07-30-2023 Telephone encounter Hafsa Knowles [facility] Start: 02-20-2023 End: 02-20-2023 ambulatory Katie Almonte Facility:[facility] Start: 02-20-2023 End: 02-20-2023 Patient encounter procedure Katie Almonte [facility] Start: 08-22-2022 End: 08-22-2022 Patient encounter procedure Katie Almonte [facility] Start: 08-01-2022 End: 08-01-[address] ANTWON BAKER Facility:[facility] Start: 07-30-2022 End: 07-31-[address] ANTWON BAKER Facility:[facility] Start: 07-12-2022 Adult health examination Vanessa Knowles Other [facility] Other Start: 06-13-2022 End: 06-14-[address] HAFSA KNOWLES Facility:[facility] Start: 12-05-2021 End: 12-05-2021 Patient encounter procedure Mally Key Jr. [facility] Start: 11-27-2021 End: 11-28-[address] MALLY KEY JR Facility:[facility] Procedures Date Procedure Procedure Detail Performing Clinician Start: 05-01-2024 MRSA Screening Culture Start: 07-29-2019 Cholecystectomy Mally Key Jr. Start: 07-15-2016 Parathyroidectomy Gregg Key Jr. Start: 12-26-2015 General examination of patient Hafsa Knowles Other Start: 04-29-2015 Laboratory test resu lt abnormal Hafsa Knowles Other Start: 04-29-2015 Screening mammography M arron Knowles Other Start: 12-26-2011 Colonoscopy Mally gilbert [facility] Start: 07-15-2009 Biopsy of breast Mally Key Start: 07-15-1996 Total abdominal hyst erectomy with bilateral salpingo-oophorectomy Mally Key [facility] Start: 07-15-1989 Splenectomy Mally gilbert JrPadilla Bilateral cataracts (disorder) Mally Key JrPadilla Ligation of fallopian tube D prashanth Key JrPadilla Screening for malign ant neoplasm of breast Hafsa Knowles Other Plan of Treatment Date Care Activity Detail Author Start: 06-10-2025 Tobacco Screening Tobacco Screening [facility] Start: 05-28-2025 Tobacco Screening Tobacco Screening [facility] Start: 06-25-2024 End: 06-25-2024 Patient encounter procedure 06/25/2024 9:20 AM EST Office Visit [facility] [address] [place] [phone] Zaida Child MD [address], [address] [address] [facility] Start: 06-18-2024 End: 06-18-2024 Patient encounter procedure 06/18/2024 10:20 AM EST Office Visit [facility] [address] [place] [phone] Zaida Child MD [address] [address] [facility] Start: 05-19-2024 Patient referral [facility] Work Phone: Start: 03-15-2024 COVID-19 Vaccine ( season) COVID-19 Vaccine ( season) [facility] Start: 07-20-2023 Tobacco Screening Tobacco Screening [facility] Start: 2012 Fall Risk Screening Fall Risk Screen ing [facility] Start: 1966 DTaP,Tdap and Td Vaccines (1 - Tdap) DTaP,Tdap and Td Vaccines (1 - Tdap) [facility] Start: 1959 Depression Screening Depression Scre ening [facility] DXA Skeletal system.axial Views for bone density [facility] MG Breast - bilatera l Screening [facility] Patient referral [facility] Work Phone: US Lower extremity v ein - right [facility] XR Tibia and Fibula - right 2 Views [facility] Immunizations Immunization Date Immunization Notes Care Provider Fa cility 04-10-2022 SARS-CoV-2 (COVID-19 ) [id number] Katie Lue [facility] 04-11-2021 SARS-CoV-2 (COVID-19 ) mRNA BNT-162b2 vax Katie Lue [facility] 02-15-2021 zoster vaccine recombinant Katie Lue [facility] 11-30-2020 zoster vaccine recombinant Katie Lue [facility] 08-30-2020 SARS-CoV-2 (COVID-19 ) mRNA BNT-162b2 vax Katie Lue [facility] Comment on above: Result Comment: 2022: [id number] 08-09-2020 SARS-CoV-2 (COVID-19 ) mRNA BNT-162b2 vax Katie Almonte [facility] Comment on above: Result Comment: 2022: [id number] 05-16-2020 influenza virus vaccine, split virus (incl. purified surface antigen) Hafsa Knowles Other [facility] Other 05-16-2020 influenza virus vaccine, unspecified formulation [facility] 04-26-2020 influenza virus vaccine, unspecified formulation Katie Almonte [facility] 12-16-2018 pneumococcal polysaccharide vaccine, 23 valent Hafsa Knowles Other [facility] 11-07-2017 pneumococcal conjuga te vaccine, 13 valent Mally Key Jr. [facility] 11-07-2017 pneumococcal Conjuga te, unspecified formulation; Translations: [Need for prophylactic vaccination against Streptococcus pneumoniae (pneumococcus)] Hafsa Knowles Other [facility] Other 10-13-2017 pneumococcal polysaccharide vaccine, 23 valent Katie Lue [facility] 04-14-2017 influenza virus vaccine, unspecified formulation Katie Lue [facility] Payers Date Payer Category Payer Commercial Indemnity [facility] [id number] 2012 Medicare 2012 Unknown 1959 Medicare [id number] 1959 Unknown [id number] 1947 Unknown [id number] 93 1947 Unknown [id number] 93 1947 Unknown [id number] 93 1947 Unknown [id number] 93 1947 Unknown [id number] 27 1947 Unknown [id number] 27 1947 Unknown [id number] 27 1947 Unknown [id number] 96 1947 Unknown [id number] 286 Medicare Medicare [id number] Social History Date Type Detail Facility Start: 12-05-2021 End: 07-18-2022 Tobacco smoking status Never smoked tobacco (finding) [facility] Start: 05-28-2024 End: 06-10-2024 Sex Assigned At Female [facility] Tobacco smoking status Never [facility] Start: 1945 Sex Assigned At Female F [facility] Start: 07-18-2022 Tobacco use and exposure Smokeless tobacco non-user [facility] Start: 05-28-2024 End: 06-10-2024 Alcoholic beverage intake Lifetime non-drinker (finding) [facility] Start: 05-28-2024 End: 06-10-2024 History of Social function [facility] Start: 07-18-2022 Alcohol Comment rare [facility] Start: 1945 Sex assigned at Not on file P [facility] Start: 05-31-2021 Sex Female (finding) [facility] Functional Status Date Assessment Result Facility 01-15-2024 Functional Status N/A [facility] 02-20-2023 Functional Status N/A [facility] 08-22-2022 Functional Status N/A [facility] Clinical Notes 12-05-2021 to 06-10-2024 Assessment & Plan Note - Zaida Child MD - 06/10/2024 5:32 PM ESTAssessment & Plan Note - Zaida Child MD - 06/10/2024 5:32 PM ESTZaida Child MD - 06/10/2024 3:30 PM EST Note Date & Type Note Facility 06-10-2024 Evaluation + Plan note Associated Problem(s): Varicose veins of bilateral lower extremities with pain Venous reflux ultrasound compression stockings leg elevation and exercise. [facility] 06-10-2024 Evaluation + Plan note Associated Problem(s): Superficial phlebitis and thrombophlebitis of right lower extremity Warm compresses nonsteroidal anti-inflammatory drugs leg elevation and compression therapy. We will get venous reflux ultrasound and rule out DVT as well. [facility] 06-10-2024 Miscellaneous Notes Associated Problem(s): Varicose veins of bilateral lower extremities with pain Venous reflux ultrasound compression stockings leg elevation and exercise. Associated Problem(s): Superficial phlebitis and thrombophlebitis of right lower extremity Warm compresses nonsteroidal anti-inflammatory drugs leg elevation and compression therapy. We will get venous reflux ultrasound and rule out DVT as well. documented in this encounter [facility] 06-10-2024 History of Presen t illness Narrative Images from the original note were not included. To: HAFSA KNOWLES MD HPI: Damaso Kan is a 79 y.o. female with ith Bilateral lower extremity varicose veins and pain and swelling and skin discoloration. Recently in the right side just above the ankle medially she developed superficial thrombophlebitis with aggressive pain and tenderness. She uses compression stockings intermittently.. . Review of Systems: Review of Systems Constitutional: Negative. HENT: Negative. Respiratory: Negative. Cardiovascular: Negative. Gastrointestinal: Negative. Endocrine: Negative. Genitourinary: Negative. Musculoskeletal: Negative. Skin: Negative. Neurological: Negative. Hematological: Negative. Medications: Current Outpatient Medications on File Prior to Visit Medication Sig Dispense Refill acetaminophen (TYLENOL) 325 mg tablet Take by mouth. biotin 1 mg capsule Take by mouth. cholecalciferol, vitamin D3, 5,000 units tablet Take 1 tablet (5,000 Units total) by mouth in the morning. cranberry 500 mg capsule Take by mouth. ibuprofen (MOTRIN) 400 mg tablet Take 1 tablet (400 mg total) by mouth every 6 (six) hours as needed for pain. loratadine (CLARITIN) 10 mg tablet Take 1 tablet (10 mg total) by mouth in the morning. fexofenadine (MARY) 180 mg tablet Take by mouth. (Patient not taking: Reported on 06/10/2024) sod sulf-pot chloride-mag sulf 1.479-0.188- 0.225 gram tablet See instructional sheet given by office. Patient was given a [employer] coupon voucher to use, this is not to be ran through patients insurance. (Patient not taking: Reported on 06/10/2024) 24 tablet 0 sod sulf-pot chloride-mag sulf 1.479-0.188- 0.225 gram tablet PATIENT TO USE $50 COUPON VOUCHER GIVEN BY OFFICE, DO NOT RUN THRU INSURANCE (Patient not taking: Reported on 06/10/2024) 24 tablet 0 No current facility-administered medications on file prior to visit. Past Medical History: Past Medical History: Diagnosis Date Arthritis Kidney mass Visual impairment glasses Past Surgical History: Past Surgical History: Procedure Laterality Date ARTHROSCOPY MENISCECTOMY KNEE. PARTIAL MEDIAL AND LATERAL. Right 06/14/2021 Performed by Vic iHtchcock DO at [facility] BREAST SURGERY bx, marker in place left side CATARACT EXTRACTION bilateral CHOLECYSTECTOMY COLONOSCOPY ESOPHAGOGASTRODUODENOSCOPY HYSTERECTOMY KNEE SURGERY right PARATHYROID GLAND SURGERY and thyroid nodule removed SPLENECTOMY, TOTAL Social and Family History: Social History Socioeconomic History Marital status: Spouse name: Not on file Number of children: Not on file Years of education: Not on file Highest education level: Not on file Occupational History Not on file Tobacco Use Smoking status: Never Smokeless tobacco: Never Vaping Use Vaping status: Never Used Substance and Sexual Activity Alcohol use: Never Comment: rare Drug use: Never Sexual activity: Not on file Other Topics Concern Not on file Social History Narrative Not on file Social Drivers of Health Financial Resource Strain: Not on file Food Insecurity: No Food Insecurity (06/10/2024) Hunger Screening Food Insecurity - Worry: Never True Food Insecurity - Inability: Never True Transportation Needs: Not on file Physical Activity: Not on file Stress: Not on file Social Connections: Not on file Interpersonal Safety: Not on file Housing Instability: Not on file Family History Problem Relation Age of Onset Cancer Mother Ovarian cancer Mother Kidney cancer Mother Breast cancer Mother Multiple myeloma Father Breast cancer Maternal Aunt Cancer Maternal Aunt Brain cancer Maternal Aunt Brain Tumor Maternal Aunt Breast cancer Niece Breast cancer Niece Recent Labs: Recent and relative labs were reviewed and interpreted and contributed to the assessment and plan below. Vitals: BP 132/84 (BP Site: Left Arm, BP Postition: Sitting, BP CUFF SIZE: M (9-13 inches)) Ht 167.6 cm (5' 6 ) Wt 90.7 kg (200 lb) BMI 32.28 kg/m Body mass index is 32.28 kg/m . Physical Exam: Physical Exam Constitutional: Appearance: Normal appearance. HENT: Head: Normocephalic and atraumatic. Mouth/Throat: Mouth: Mucous membranes are moist. Eyes: Extraocular Movements: Extraocular movements intact. Pupils: Pupils are equal, round, and reactive to light. Cardiovascular: Rate and Rhythm: Normal rate and regular rhythm. Pulmonary: Effort: Pulmonary effort is normal. Breath sounds: Normal breath sounds. Abdominal: General: Abdomen is flat. Bowel sounds are normal. Palpations: Abdomen is soft. Musculoskeletal: General: Normal range of motion. Cervical back: Normal range of motion. Skin: General: Skin is warm and dry. Neurological: General: No focal deficit present. Mental Status: She is alert and oriented to person, place, and time. Mental status is at baseline. Psychiatric: Mood and Affect: Mood normal. Behavior: Behavior normal. Thought Content: Thought content normal. Judgment: Judgment normal. Recent testing: Assessment and Plan: Problem List Superficial phlebitis and thrombophlebitis of right lower extremity - Primary Current Assessment & Plan Warm compresses nonsteroidal anti-inflammatory drugs leg elevation and compression therapy. We will get venous reflux ultrasound and rule out DVT as well. Varicose veins of bilateral lower extremities with pain Lavohn was seen today for follow up superficial thrombophlebitis venous duplex lwr s and leg pain. Diagnoses and all orders for this visit: Superficial phlebitis and thrombophlebitis of right lower extremity Varicose veins of bilateral lower extremities with pain Zaida Child MD, TRIPP, RPVI, FSVS, FACS [facility] This note was created with the assistance of a speech recognition program. While intending to generate a timely document that accurately reflects the content of the visit, no guarantee can be provided that every grammatical or spelling mistake has been or will be identified or corrected. Thank you for your understanding. documented in this encounter [facility] 05-28-2024 Evaluation + Plan note Associated Problem(s): Varicose veins of bilateral lower extremities with pain Compression stockings leg elevation exercise. Venous reflux ultrasound. [facility] 05-28-2024 Miscellaneous Notes Associated Problem(s): Varicose veins of bilateral lower extremities with pain Compression stockings leg elevation exercise. Venous reflux ultrasound. Associated Problem(s): Superficial phlebitis and thrombophlebitis of right lower extremity Nonsteroidal anti-inflammatory drugs warm compresses leg elevation and compression therapy when possible documented in this encounter [facility] 05-28-2024 Evaluation + Plan note Associated Problem(s): Superficial phlebitis and thrombophlebitis of right lower extremity Nonsteroidal anti-inflammatory drugs warm compresses leg elevation and compression therapy when possible [facility] 05-28-2024 History of Presen t illness Narrative Images from the original note were not included. To: HAFSA KNOWLES MD HPI: Damaso Kan is a 79 y.o. female with Bilateral lower extremity varicose veins and pain and swelling and skin discoloration. Recently in the right side just above the ankle medially she developed superficial thrombophlebitis with aggressive pain and tenderness. She uses compression stockings intermittently.. Review of Systems: Review of Systems Constitutional: Negative. HENT: Negative. Respiratory: Negative. Cardiovascular: Negative. Gastrointestinal: Negative. Endocrine: Negative. Genitourinary: Negative. Musculoskeletal: Negative. Skin: Negative. Neurological: Negative. Hematological: Negative. Medications: Current Outpatient Medications on File Prior to Visit Medication Sig Dispense Refill acetaminophen (TYLENOL) 325 mg tablet Take by mouth. biotin 1 mg capsule Take by mouth. cholecalciferol, vitamin D3, 5,000 units tablet Take 1 tablet (5,000 Units total) by mouth in the morning. cranberry 500 mg capsule Take by mouth. ibuprofen (MOTRIN) 400 mg tablet Take 1 tablet (400 mg total) by mouth every 6 (six) hours as needed for pain. loratadine (CLARITIN) 10 mg tablet Take 1 tablet (10 mg total) by mouth in the morning. fexofenadine (MARY) 180 mg tablet Take by mouth. (Patient not taking: Reported on 05/28/2024) sod sulf-pot chloride-mag sulf 1.479-0.188- 0.225 gram tablet See instructional sheet given by office. Patient was given a [employer] coupon voucher to use, this is not to be ran through patients insurance. (Patient not taking: Reported on 05/28/2024) 24 tablet 0 sod sulf-pot chloride-mag sulf 1.479-0.188- 0.225 gram tablet PATIENT TO USE $50 COUPON VOUCHER GIVEN BY OFFICE, DO NOT RUN THRU INSURANCE (Patient not taking: Reported on 05/28/2024) 24 tablet 0 No current facility-administered medications on file prior to visit. Past Medical History: Past Medical History: Diagnosis Date Arthritis Kidney mass Visual impairment glasses Past Surgical History: Past Surgical History: Procedure Laterality Date ARTHROSCOPY MENISCECTOMY KNEE. PARTIAL MEDIAL AND LATERAL. Right 06/14/2021 Performed by Vic Hitchcock DO at [facility] BREAST SURGERY bx, marker in place left side CATARACT EXTRACTION bilateral CHOLECYSTECTOMY COLONOSCOPY ESOPHAGOGASTRODUODENOSCOPY HYSTERECTOMY KNEE SURGERY right PARATHYROID GLAND SURGERY and thyroid nodule removed SPLENECTOMY, TOTAL Social and Family History: Social History Socioeconomic History Marital status: Spouse name: Not on file Number of children: Not on file Years of education: Not on file Highest education level: Not on file Occupational History Not on file Tobacco Use Smoking status: Never Smokeless tobacco: Never Vaping Use Vaping status: Never Used Substance and Sexual Activity Alcohol use: Never Comment: rare Drug use: Never Sexual activity: Not on file Other Topics Concern Not on file Social History Narrative Not on file Social Drivers of Health Financial Resource Strain: Not on file Food Insecurity: No Food Insecurity (05/28/2024) Hunger Screening Food Insecurity - Worry: Never True Food Insecurity - Inability: Never True Transportation Needs: Not on file Physical Activity: Not on file Stress: Not on file Social Connections: Not on file Interpersonal Safety: Not on file Housing Instability: Not on file Family History Problem Relation Age of Onset Cancer Mother Ovarian cancer Mother Kidney cancer Mother Breast cancer Mother Multiple myeloma Father Breast cancer Maternal Aunt Cancer Maternal Aunt Brain cancer Maternal Aunt Brain Tumor Maternal Aunt Breast cancer Niece Breast cancer Niece Recent Labs: Recent and relative labs were reviewed and interpreted and contributed to the assessment and plan below. Vitals: BP 146/84 (BP Site: Right Arm, BP Postition: Sitting, BP CUFF SIZE: M (9-13 inches)) Pulse 72 Temp 36.3 C (97.4 F) (Temporal) Ht 167.6 cm (5' 6 ) Wt 93 kg (205 lb) SpO2 97% BMI 33.09 kg/m Body mass index is 33.09 kg/m . Physical Exam: Physical Exam Constitutional: Appearance: Normal appearance. HENT: Head: Normocephalic and atraumatic. Mouth/Throat: Mouth: Mucous membranes are moist. Eyes: Extraocular Movements: Extraocular movements intact. Pupils: Pupils are equal, round, and reactive to light. Cardiovascular: Rate and Rhythm: Normal rate and regular rhythm. Pulmonary: Effort: Pulmonary effort is normal. Breath sounds: Normal breath sounds. Abdominal: General: Abdomen is flat. Bowel sounds are normal. Palpations: Abdomen is soft. Musculoskeletal: General: Normal range of motion. Cervical back: Normal range of motion. Skin: General: Skin is warm and dry. Comments: Varicose veins with pain Neurological: General: No focal deficit present. Mental Status: She is alert and oriented to person, place, and time. Mental status is at baseline. Psychiatric: Mood and Affect: Mood normal. Behavior: Behavior normal. Thought Content: Thought content normal. Judgment: Judgment normal. Recent testing: Venous reflux ultrasound Assessment and Plan: Problem List Superficial phlebitis and thrombophlebitis of right lower extremity - Primary Current Assessment & Plan Nonsteroidal anti-inflammatory drugs warm compresses leg elevation and compression therapy when possible Varicose veins of bilateral lower extremities with pain Current Assessment & Plan Compression stockings leg elevation exercise. Venous reflux ultrasound. Damaso was seen today for new patient - right leg pain after cellulitis. Diagnoses and all orders for this visit: Superficial phlebitis and thrombophlebitis of right lower extremity Right leg pain - [facility] - [place], [place] Phlebitis and thrombophlebitis of unspecified site - [facility] - [place], [place] Varicose veins of bilateral lower extremities with pain Zaida Child MD, TRIPP, RPVI, FSVS, FACS [facility] This note was created with the assistance of a speech recognition program. While intending to generate a timely document that accurately reflects the content of the visit, no guarantee can be provided that every grammatical or spelling mistake has been or will be identified or corrected. Thank you for your understanding. documented in this encounter [facility] 04-10-2024 Note Procedure: MRI of th [...] Signed, Electronically Signed in Other Vendor System) [facility] 04-10-2024 Note Procedure: MRI of th [...] Signed, Electronically Signed in Other Vendor System) [facility] 01-15-2024 Evaluation + Plan note Diagnostic Tests PendingUrine Culture 01/15/24 [facility] 01-15-2024 Hospital Discharg e instructions [...] provider. Document Revised: 11/09/2021 Document Reviewed: 11/09/2021 [employer] Patient Education 2022 [employer]. Follow Up Care 02/20/2023 12:02:25 With:Gage JACOB, KEKE Carrera, URO Address: [address] [place] [address] [phone] When: Unknown [facility] 01-15-2024 Note Patient Education Obstetrics and Gynecology [...] provider. Document Revised: 11/09/2021 Document Reviewed: 11/09/2021 [employer] Patient Education ? [address] [facility] 07-30-2023 Evaluation note Encounter Date Diagnosis Assessment Notes Jul, Acute non-recurrent maxillary sinusitis (ICD-10 - J01.00) Help Remed[facility] Other 08-09-2023 Hospital Discharge instructions Patient Education 02/20/2023 09:58:29 Urinary Tract Infection, Adult, Fmnh-qg-Erth Urinary Tract Infection, Adult A urinary tract [...] Follow these instructions at home: Medicines Take vhkk-tnq-mmdmhtq and prescription medicines only as told by [...] provider. Document Revised: 02/10/2021 Document Reviewed: 02/10/2021 [employer] Patient Education 2022 [employer]. Follow Up Care 08/22/2022 12:56:32 With:Gage JACOB, KEKE Carrera, URO Address: When:Within 1 Year(s) [facility] 02-08-2023 Hospital Discharge instructions Patient Education 08/22/2022 [...] 06/17/2013 Document Revised: 02/18/2019 Document Reviewed: 02/18/2019 [employer] Patient Education 2020 [employer]. Follow Up Care 06/13/2022 11:42:12 With:Gage JACOB, KEKE Carrera, URO Address: When: Unknown [facility] 05-24-2022 Hospital Discharge instructions Patient Education 12/05/2021 [...] provider gives to you. In general: Take stqd-dli-zmrrnno and prescription medicines only as told by [...] 01/26/2015 Document Revised: 08/07/2018 Document Reviewed: 08/07/2018 [employer] Patient Education 2020 [employer]. Follow Up Care 06/07/2021 13:20:37 With:Shahid Ontiveros MD, Mally Mendiola, URO Address: [facility] [address], [place] [address]- When: Unknown [facility] evalmupgza + Plan note No data available for this section [facility] evaluation + Plan note Future Appointments Appointment Date:02/20/2023 10:45:00 AM Scheduled Provider:Katie Almonte MD Location:[facility] Appointment Type:URO Office Visit [facility] evaluation + Plan note Future Appointments Appointment Date:02/26/2024 10:45:00 AM Scheduled Provider:Katie Almonte MD Location:[facility] Appointment Type:URO Office Visit [facility] evaluation noteNo InformationNort Gutenbergz Other evaluation note* Diagnosis Onset Date Resolution Status Menopausal and postmenopausal disorder acute Screening mammogram for breast cancer acute [facility] Work Phone: evaluation noteNo assessment information available [facility] Work Phone: evaluation note* Diagnosis Onset Date Resolution Status Preoperative examination acu te Right leg pain acute [facility] Work Phone: Evaluation note* Diagnosis Onset Date Resolution Status Preoperative examination acu te Right leg pain acute Phlebitis acute Right leg pain acute [facility] Work Phone: Evaluation note* Diagnosis Superficial phlebitis and thrombophlebitis of right lower extremity- Primary Right leg pain Pain in soft tissues of limb Phlebitis and thrombophlebitis of unspecified site Varicose veins of bilateral lower extremities with pain [facility] Diagnosis Superficial phlebitis and thrombophlebitis of right lower extremity- Primary Right leg pain Pain in soft tissues of limb Phlebitis and thrombophlebitis of unspecified site Varicose veins of bilateral lower extremities with pain Superficial phlebitis and thrombophlebitis of right lower extremity- Primary Varicose veins of bilateral lower extremities with pain documented [facility] N[facility] - Reported* Type Description Date [...] ABOVE SURGERY Hospitalization History CHILD X'S 2 Help Remedies Other Hospital Discharge instructions No data available for this section [facility] Orders* Referral to Vascular Surgery Time Frame: 05/19/24, Location: None [facility] Work Phone: InstructionsNot on filedocumented in this encounter [facility] on filedocumented in this encounter [facility]Not [facility] filedocumented in this encounter [facility] No data available for this section [facility] Summary Purpose Family History No Family History Records Found Relationship Condition Age at Onset Recorded Date/T radha father Unknown mother Unknown Advance Directives No Advanced Directives Records Found Advance Directive Response Recorded Date/ Time Advance Directives No January 23 10:46am Advance Directive Response Recorded Date/ Time Advance Directives No January 23 9:46am Chief Complaint and Reason for Visit Chief Complaint wellness Reason for Visit Menopausal and postm enopausal disorder Screening mammogram for breast cancer Chief Complaint Pre-surgical Clearan ce Chief Complaint Pre-surgical Clearan ce Amb Documentation [facility] f/u lower extremity pain CC Adult Risk Stratification Reason for Visit Preoperative examina tion Right leg pain Chief Complaint Pre-surgical Clearan ce Amb Documentation [facility] f/u lower extremity pain CC Adult Risk Stratification Cellulitis f/u Reason for Visit Preoperative examina tion Right leg pain Phlebitis Right leg pain Additional Source Comments INFORMATION SOURCE (unrecogn ized section and content) DATE CREATED AUTHOR 08/02/2022 [facility] [facility] DATE CREATED AUTHOR AUTHOR'S ORGANIZ ATION [facility] DATE CREATED AUTHOR AUTHOR'S ORGANIZ ATION 01/19/2024 [facility] DATE CREATED AUTHOR AUTHOR'S ORGANIZ ATION 04/11/2024 [facility] DATE CREATED AUTHOR AUTHOR'S ORGANIZ ATION 06/13/2024 [facility] Patient Care team informatio n (unrecognized section and content) Team Status: Active Member Role Status Dates Hafsa Knowles MD Primary Care Provider Active Team Status: Inactive Member Role Status Dates Hafsa Knowlse MD Primary Care Provide r, Attending Provider [...] 2024 Team Status: Inactive Member Role Status Janice Knowles MD Primary Care Provide r, Attending Provider Active Start: May 07, 2024 End: May 07, 2024 Team Status: Active Member Role Status Janice Knowles MD Primary Care Provide r, Attending Provider Active Start: May 07, 2024 Team Status: Inactive Member Role Status Janice Knowles MD Primary Care Provide r, Attending Provider Active Start: May 19, 2024 End: May 19, 2024 Master 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 Technician 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 [place] [address] [place] [address] PCP - General Family Medicine 06/01/21 Master Automotive Technician 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 Start Date End Date Hafsa Knowles MD [address] [place] [address] PCP - General Family Medicine 06/01/21 Master Automotive Technician 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 Start Date End Date Hafsa Knowles MD [address] [place] [address] PCP - General Family Medicine 06/01/21 REASON FOR VISIT (unrecogniz ed section and content) Reason Comments new patient - right leg pain after cellu litis Specialty Diagnoses / Procedures Referred By Mara gamez Referred To Contact Vascular Surgery Diagnoses Right leg pain Phlebitis and thromboph[place]bit[place] [address] [place] [id number] Phone: tel: fax: [facility] [address] [place] [phone] Phone: tel: fax: Referral ID Status Reason Start Date Expiration Date Visits Requested Visits Authorized [id number] Pending Review Specialty Services Required 05/20/2024 05/20/2025 1 1 Reason Comments follow up superficial thromb ophlebitis venous duplex lwr s Leg Pain Sharp pain 7/10 when raising legs or stands up Goals (unrecognized section and content) Goals may [...] BE BASED ON THE PRIMARY CLINICAL RECORDS. [facility] [employer] [facility]. provides no warranty or guarantee of the accuracy or completeness of information in this document.
[2024-06-16 10:06] VITALS: BP 138/68; PULSE 75; O2SAT 96
--- NOTE | 2024-06-16 15:18 | W.VEIN ---
Discharge Plan Discharge Disposition: Home, Self-Care Outpatient Diagnostics: VC Endovenous Ablation 1VeinLT (Routine) Timeframe: 2 Weeks Facility: [facility] - Location: [facility] Ordered By: Quentin Hernandez Follow Up Appointments: 06/26/24 Plan of Treatment: evlt of left aasv Patient Instructions: Endovenous Ablation (GEN) Print Language: Portuguese Discharge Date/Time: 06/16/24 11:10
== END 2024-06-16 11:10 | disposition home or self-care (01) ==
PROVIDERS: PCP Family Medicine; Visit Provider Radiology Diagnostic Radiology
DX: M79.604 Pain in right leg (principal); I80.9 Phlebitis and thrombophlebitis of unspecified site; I83.813 Varicose veins of bilateral lower extremities with pain
CPT/HCPCS: 93970; G0463

== ENCOUNTER 2024-06-26 10:20 | Outpatient (OUT) | payer MEDICARE, OTHER, SELFPAY ==
--- NOTE | 2024-06-25 11:15 | VEINCLINIC_ITS ---
Vital Signs 06/26/24 10:30 BP 124/76 BP Location Left Brachial BP Position Sitting BP Cuff Size Adult BP Source Manual Cuff Respiration 18 Pulse 64 Pulse Source Monitor Pulse Oximetry (%) 99 Oxygen Delivery Method Room Air Comment The patient's blood pressure is elevated. Varicose Veins Patient in this day for EVLT of left AASV Quentin Michel MD personally performed the services described in this documentation, as scribed by Saeid Godinez RN in my presence and it is both accurate and complete. Saeid Michel RN, am scribing for, and in the presence of, Dr. Quentin Hernandez and in the presence of the patient. thigh: bilateral, knee: bilateral, calf: bilateral, ankle: bilateral and anderson: bilateral aching, sharp and tender 3 8 weeks Worsened in recent months: Yes standing analgesics, elevating extremities and compression stockings Reports erythema, bruising, heaviness, limb pain, edema and leg edema History of lower extremity trauma: No Superficial thrombophlebitis: Yes Family history of varicose veins: yes Has patient had previous lower extremity venous surgery: No Patient has previously received the following treatment(s) for lower extremity varicose veins: Reports none Does patient have a history of : yes Does patient intend to have future pregnancies: no Has patient had lower extremity venous scan with relux testing: Yes Support hose used: Yes Problems walking or doing physical activity: Yes How does it affect you: Unable to stand for long periods of time Do you walk much: Yes Do you stand much: Yes Review of Systems ROS Narrative Quentin Michel MD personally performed the services described in this documentation, as scribed by Saeid Godinez RN in my presence and it is both accurate and complete. Saeid Michel RN, am scribing for, and in the presence of, Dr. Quentin Hernandez and in the presence of the patient. Status of ROS 10 or more systems reviewed and unremark able except as noted in history and below Cardiovascular Reports: edema and swelling of feet/ankles Musculoskeletal Reports: extremity pain, extremity swelling, joint pain, joint swelling and muscle cramps Integumentary/Breast Reports: itching, redness, skin pain, skin tenderness, skin swelling and sores [facility] Medical History (Updated 06/16/24 @ 12:51 by Hilda Reyes RN) Pain due to varicose veins of both lower extremities ?I83.813 - Varicose veins of bilateral lower extremities with pain (ICD-10) Raynaud disease ?I73.00 - Raynaud's syndrome without gangrene (ICD-10) Arthritis ?M19.90 - Unspecified osteoarthritis, unspecified site (ICD-10) History of ITP (1989) ?Z86.2 - Personal history of diseases of the blood and blood-forming organs and certain disorders involving the immune mechanism (ICD-10) History of blood transfusion ?Z92.89 - Personal history of other medical treatment (ICD-10) Thyroid cyst ?E04.1 - Nontoxic single thyroid nodule (ICD-10) Phlebitis ?I80.9 - Phlebitis and thrombophlebitis of unspecified site (ICD-10) Varicose vein of leg ?I83.90 - Asymptomatic varicose veins of unspecified lower extremity (ICD-10) Knee pain ?M25.569 - Pain in unspecified knee (ICD-10) Seasonal allergic rhinitis ?J30.2 - Other seasonal allergic rhinitis (ICD-10) Cataracts, bilateral ?H26.9 - Unspecified cataract (ICD-10) Hyperparathyroidism ?E21.3 - Hyperparathyroidism, unspecified (ICD-10) Renal cyst ?N28.1 - Cyst of kidney, acquired (ICD-10) Osteopenia ?M85.80 - Other specified disorders of bone density and structure, unspecified site (ICD-10) Vitamin D deficiency ?E55.9 - Vitamin D deficiency, unspecified (ICD-10) Chronic UTI ?N39.0 - Urinary tract infection, site not specified (ICD-10) Genu varum of right lower extremity ?M21.161 - Varus deformity, not elsewhere classified, right knee (ICD-10) Primary osteoarthritis of right knee ?M17.11 - Unilateral primary osteoarthritis, right knee (ICD-10) Surgical History (Updated 05/01/24 @ 08:42 by Francesca Zavala NP) History of colonoscopy ?Z98.890 - Other specified postprocedural states (ICD-10) H/O knee surgery ?Z98.890 - Other specified postprocedural states (ICD-10) H/O breast biopsy ?Z98.890 - Other specified postprocedural states (ICD-10) History of cholecystectomy ?Z90.49 - Acquired absence of other specified parts of digestive tract (ICD- 10) H/O oophorectomy H/O parathyroidectomy ?Z98.890 - Other specified postprocedural states (ICD-10) ?Z90.89 - Acquired absence of other organs (ICD-10) History of hysterectomy ?Z90.710 - Acquired absence of both cervix and uterus (ICD-10) H/O tubal ligation ?Z98.51 - Tubal ligation status (ICD-10) H/O splenectomy (1989) ?Z90.81 - Acquired absence of spleen (ICD-10) S/P arthroscopic knee surgery ?Z98.890 - Other specified postprocedural states (ICD-10) Family History (Updated 06/16/24 @ 10:21 by Hilda Reyes RN) Mother Varicose veins of bilateral lower extremities with pain Father Family history of myocardial infarction Other Cancer Family history of DVT Family history of cancer Social History (Updated 05/01/24 @ 08:31 by Francesca Zavala NP) Within the past year, how often did you have a drink containing alcohol: never Score interpretation: A score less than 3 is consistent with normal alcohol consumption. 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 Highest level of school completed/degree received: some college, no degree Little interest or pleasure in doing things: not at all Feeling down, depressed, or hopeless: not at all Meds Home Medications and Allergies Home Medications ?Medication ?Instructions ?Recorded ?Confirmed ?Type biotin 5 mg capsule 5 mg PO DAILY 05/01/24 06/16/24 History cholecalciferol (vitamin D3) 125 125 mcg PO DAILY 05/01/24 06/16/24 History mcg (5,000 unit) capsule cranberry 500 mg capsule 500 mg PO DAILY 05/01/24 06/16/24 History d-mannose 500 mg capsule mg PO 05/01/24 History estradiol 0.01% (0.1 mg/gram) 0.5 appful vaginal .twice a week 05/01/24 06/16/24 History vaginal cream loratadine 10 mg capsule 10 mg PO DAILY 05/01/24 06/16/24 History [id number] 30 mg-folic cap PO 06/16/24 History acid 1 mg-dss 50 mg-dha 260 mg capsule Allergies Allergy/AdvReac Type Severity Reaction Status Date / Time codeine AdvReac Nausea Verified 05/01/24 08:26 Exam Narrative Exam Narrative: Quentin Michel MD personally performed the services described in this documentation, as scribed by Saeid Godinez RN in my presence and it is both accurate and complete. Saeid Michel RN, am scribing for, and in the presence of, Dr. Quentin Hernandez and in the presence of the patient. Constitutional Documenting provider has reviewed patient's vital signs: yes Common normals: oriented x3 Nutritional appearance: overweight Lymph Lymphatic: no lymphedema noted Cardio Peripheral pulses: posterior tibial pulses present and dorsalis pedis pulses present Extremity General: calf tenderness, edema and other findings Right lower extremity: lower leg Right lower leg: inspection and palpation Left lower extremity: lower leg Left lower leg: inspection and palpation Other: Right mid medial calf healed wound 1.0x1.5cm Neuro Common normals: oriented x3 Assessment and Plan Assessment and Plan (1) Pain due to varicose veins of both lower extremities: Plan f/u evaluation with physician along with left leg limited u/s Quentin Michel MD personally performed the services described in this documentation, as scribed by Saeid Godinez RN in my presence and it is both accurate and complete. Saeid Michel RN, am scribing for, and in the presence of, Dr. Quentin Hernandez and in the presence of the patient. Procedures Procedure Instructions Procedures Plan of care: Risks and benefits of the procedure were discussed at length and informed written consent was obtained.? Time-out completed for verification of correct patient, procedure and site.? Staff present during time-out: Saeid Godinez RN,? Quentin Hernandez MD, [facility],[place]. Time Out Time__1053 Patient prepped and procedure performed in usual sterile fashion. Risk of injury related to use of Diode laser and/or laser devices__CR___ ? Serial number of laser used :? [id number] Control panel self test performed, electrical cords in good condition, floor is dry, basin of water available, fire extinguisher in close proximity_CR__ Polycarbonate goggles available and Laser warning signs outside of doors___CR__ Eye protection provided to patient and staff in room_CR___ Use of laser retardant apes and dull blackened instruments as directed__CR___ Use of nonflammable prep solutions and use of saline soaked sponges to protect tissues as indicated _CR___ Length ____6____ cm Laser operated by _Dr. Hernandez Physician verbal confirmation laser locked in place__CR__ Laser start time (date and time) __06/25/2024@__1101 Laser stop time(date and time) __06/25/2024@__1102 Storey _8.0___ Average laser use ___527____Joules Average laser use___66 seconds Pulse continuous ___CR_? Pulse intermittent ___ Amount of Tumescent used __75cc____ Evaluated patient for signs and symptoms of electrical injury __CR___ ? Skin clear at insertion site __CR___ Patient tolerated procedure well.? Left leg Coban dressing applied to access site.? Applied Left thigh high leg compression stocking. Will return on 06/30/24 for Left leg limited venous ultrasound and exam. IQuentin MD personally performed the services described in this documentation, as scribed by Saeid Godinez RN in my presence and it is both accurate and complete. I, Saeid Godinez RN, am scribing for, and in the presence of, Dr. Quentin Hernandez and in the presence of the patient.
--- NOTE | 2024-06-25 11:18 | W.VEIN ---
Discharge Plan Discharge Disposition: Home, Self-Care Outpatient Diagnostics: VC Facility EST LMTD (Routine) Timeframe: 2 Weeks Facility: [facility] - Location: [facility] Ordered By: Quentin Hernandez VC EXT Venous LT Limited (Routine) Timeframe: 2 Weeks Facility: [facility] - Location: Vein Center Ordered By: Quentin Hernandez Follow Up Appointments: 07/02/2024 Plan of Treatment: f/u evaluation with physician along with left leg limited u/s Patient Instructions: Endovenous Ablation (DC) Print Language: Uzbek Discharge Date/Time: 06/26/24 10:56
[2024-06-26] MEDS: LIDOCAINE HCL 1% 100 MG/10 ML MDV INJ (10:20)
[2024-06-26] MEDS: 0.9 % SODIUM CHLORIDE 500 ML, LIDOCAINE HCL 20 ML, SODIUM BICARBONATE 10 MEQ INJ (10:21)
--- NOTE | 2024-06-26 10:23 | VEIN_ITS ---
[address] [address] Patient Name: BHAVESH MONTEIRO MRN: [id number] date: 1945 Sex: F Assigned Patient Location: Current Patient Location: Accession/Order Number: [id number] Exam Date: 06/26/2024 10:27 Report Date: 06/26/2024 11:19 At the request of: CARLO RICHARDSON Procedure: VC Endovenous Ablation 1VeinLT EXAMINATION: VC Endovenous Ablation 1Vein, left anterior accessory saphenous vein HISTORY: I83.813 - Varicose veins of bilateral lower extremities w... COMPARISON: No relevant comparison available. TECHNIQUE: The risks and benefits of the procedure had been previously discussed, and were rediscussed at length. Informed written consent was obtained. Trixie Corea and Saeid Godinez assisted. Time out procedure was performed. The left lower extremity was prepared and draped in the usual sterile fashion to allow knee flexion in the sterile field. Duplex ultrasound probe was draped in a sterile cover, sterile transmission gel was used. Venous mapping was performed with the areas of dilation and large tributaries marked. The total length was 6 cm from the entry upper thigh to 3 cm below the saphenofemoral junction. The diameter of the anterior accessory saphenous vein ranged from 12-15 mm. A 30 gauge needle and 1% buffered lidocaine was used to anesthetize the entry site. A 4 mm incision was made with a scalpel and the saphenous vein was entered percutaneously under direct ultrasound guidance with a micropuncture set, a single stick was successful in gaining access. A micro-guide wire was inserted and the needle removed. A micro-set including a dilator was inserted over the microwire and the needle and dilator were removed. A 0.018 guide wire was inserted through the micro-set and threaded through the saphenous vein to the saphenofemoral junction. The dilator was removed and an introducer sheath was inserted over the wire until the end of the sheath entered the saphenofemoral junction. The dilator and wire were removed and the 600 micron fiber was introduced and placed and positioned so that it extended beyond the sheath and was 3 cm peripheral to the saphenofemoral femoral junction. Final position of the fiber was determined by ultrasound guidance and duplex imaging. Tumescent anesthetic was delivered by ultrasound guidance. 75 cc of fluid was delivered along the entire course of the saphenous vein. The solution consisted of 1000 cc of normal saline with 40 mL of 1% lidocaine and 20 mL of sodium bicarbonate. A final positioning check was made. The energy source was turned on by means of the foot pedal and the fiber and sheath were withdrawn. The total number of Joules delivered was 527. The laser was active for 66 seconds under continuous pulse, average laser use of 8 J. Laser start time 11:01 AM 06/26/2024 . Laser stop time 11:02 AM 06/26/2024 . A duplex ultrasound revealed compressibility and flow at the saphenofemoral junction immediately after the procedure. Hemostasis at the access site was achieved. The skin incision of the saphenous vein was closed with a 4 x 4. A compression stocking was applied. Postop instructions were given. A follow up appointment was recommended and scheduled. The patient tolerated the procedure well and was discharged in good condition . VEIN/VC Endovenous Ablation 1VeinLT IMPRESSION: Technically successful endovenous laser ablation of the left anterior accessory saphenous vein Electronically authenticated by: CARLO RICHARDSON Date: 06/26/2024 11:19
--- OUTSIDE RECORDS SUMMARY | 2024-06-26 10:29 | XMS_ITS | CCD ---
Author Organization 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 Phone HAFSA KNOWLES Primary Care [...] Care Hafsa Lan MD Primary Care Provider ZAIDA CHILD Attending HAFSA Salas Referring HAFSA Salas Primary Care Unavailable Allergies Allergy Classification Reported Allergen(s) Allergy Type Date of Onset Reaction(s) Facility (16 sources) Codeine; Translations: [codeine] Drug Allergy 12-26-19 16 Nausea [facility] (1 source) Codeine Drug Allergy [facility] Repository (2 sources) Acetaminophen / HYDROcodone Drug Allergy Unknown [facility] Other (2 sources) Codeine Drug Allergy Unknown [facility] Other (2 sources) patient allergy list reviewed by nurse or physicia Propensity to adverse reactions 04-29-20 15 Comment:Done [facility] Other (2 sources) Allergies Reconciled Propensity to adverse reactions Unknown [facility] Other (4 sources) Acetaminophen Drug Allergy 01-24-20 [facility] (4 sources) HYDROcodone Drug Allergy 01-24-20 [facility] Medications Current Medications Medication Drug Class(es) [...] mouth. Active take 1 capsule by [facility] once daily Biotin 5000 5 MG 1 [...] 2 times per week after for maintenance., [facility], 168, cm, 01/15/24 10:54:00 EDT, Height/Length Dosing, 96, kg, 01/15/24 10:54:00 EDT, Weight Dosing Start Date: 01/15/24 Status: Ordered Start: 08-22-2022 Estrace 0.1 mg /g Cream See Instructions, 42.5 gm, Refill(s) 6, Apply pea-sized amound around the opening of the urethra 3 times per week for 1 month then 2 times per week after for maintenance., [employer] [facility], 168, cm, 08/22/22 11:52:00 EST, [...] given by office. Patient was given a [employer] coupon voucher to use, this is not to be ran through patients insurance. 24 tablet 07/18/2022 Active sulfamethoxazole 800 mg / trimethoprim 160 mg oral tablet (3 sources) Dihydrofolate Reductase Inhibitor Antibacterial, Sulfonamide Antimicrobial Start: 05-08-2024 take 1 tablet by mouth twice daily Sulfamethoxazole-Trimethoprim Active 1 TAB PO Twice daily May 07, 2024 11:00pm Start: 06-25-2023 take 1 tablet by [facility] every twelve hours Bactrim DS 800-160 MG 1 tablet Orally Twice a day for 10 day(s) Jun, Active Vitamin D-3 1000 UNIT (2 sources) take 1 capsule by [facility] once daily Vitamin D-3 1000 UNIT 1 [...] 2:53pm Start: 12-05-2021 take 1 capsule by [facility] every twelve hours Keflex 500 mg Cap 500 mg = 1 cap(s), Oral, q12hr, # 6 cap(s), Refills(s) 0, Pharmacy: [facility], 168, cm, 12/05/21 10:16:00 EDT, Height/Length Dosing, 97.5, kg, 12/05/21 10:16:00 EDT, Weight Dosing Start Date: 12/05/21 Status: Ordered omeprazole 40 mg delayed release oral capsule (6 sources) Proton Pump Inhibitor Start: 01-21-2024 End: 01-24-2024 take 40 mg by mouth once daily Omeprazole Discontinued 40 MG PO Daily January 20, 2024 11:00pm January 24, 2024 10:02am Start: 09-05-2020 take 1 capsule by [facility] once daily Omeprazole 40 MG Omeprazole 40MG, [...] aPTT Coag (PPP) [Time] 30.5 s 22.3-36.2 [facility] Basophils Auto (Bld) [#/Vol] on 05-01-2024 Basophils (Bld) [#/Vol] 0.0 10 3/uL 0.0-0.[address] [facility] Basophils/100 WBC Auto (Bld) on 05-01-2024 Basophils/100 WBC (Bld) 0.7 % 0.2-2.0 [facility] Eosinophils/100 WBC Auto (Bl d)on 05-01-2024 Eosinophils/100 WBC (Bld) 3.8 % 0.9-7.[address] [facility] Erythrocyte distribution wid th Auto (RBC) [Ratio]on 05-01-2024 Erythrocyte distribution width (RBC) [Ratio] 14.4 % 11.0-15.[address] [facility] Estimated glomerular filtrat ion rate (GFR) non- Americanon 05-01-2024 GFR/1.73 sq M.predicted among non-blacks MDRD (S/P/Bld) [Vol rate/Area] 51 mL/min/{1.73_m2} Low >=60 mL/min/1.73m [address] [facility] Globulin Calc (S) [Mass/Vol] on 05-01-2024 Globulin (S) [Mass/Vol] 4.3 g/dL [facility] Hematocrit Auto (Bld) [Volum e fraction]on 05-01-2024 Hematocrit (Bld) [Volume fraction] 39.1 % 36.0-48.[address] [facility] Hemoglobin [Mass/volume] in Bloodon 05-01-2024 Hemoglobin (Bld) [Mass/Vol] 13.1 g/dL 12.0-16.[address] [facility] INR in Platelet poor plasma by Coagulation assayon 05-01-2024 INR Coag (PPP) [Relative time] 1.07 {INR} [facility] Comment on above: DESIRED INR:2.0-3.0 CONDITIONS NOT LISTED BELOW2.5-3.5 FOR PROSTHETIC HEART VALVE REPLACEMENT2.5-3.5 RECURRENT THROMBOSIS Laboratory - Chemistry and C hemistry - challengeon 05-01-2024 Bilirubin Ql (U) Negative NEGATIVE [facility] Glucose (U) [Mass/Vol] Negative NEGATIVE [facility] Ketones Ql (U) Negative NEGATIVE [facility] pH (U) 6.0 [pH] 5.0-9.[address] [facility] Specific gravity (U) [Rel density] 1.020 1.005-1.[address] [facility] Urobilinogen Qn (U) 0.2 {Diana'U}/dL 0.2-1.[address] [facility] Albumin [Mass/Vol] 2.9 g/dL Low 3.4-5.0 [facility] ALP [Catalytic activity/Vol] 196 U/L High 46-[address] [facility] ALT [Catalytic activity/Vol] 44 U/L 14-[address] [facility] AST [Catalytic activity/Vol] 51 U/L High 15-[address] [facility] Bilirubin [Mass/Vol] 0.7 mg/dL 0.2-1.0 [facility] Bilirubin.direct [Mass/Vol] 0.2 mg/dL 0.0-0.[address] [facility] Calcium [Mass/Vol] 9.1 mg/dL 8.5-10.1 [facility] Chloride [Moles/Vol] 107 mmol/L 98-107 [facility] CO2 [Moles/Vol] 25.8 mmol/L 21.0-32.0 [facility] Creatinine [Mass/Vol] 1.05 mg/dL High 0.55-1.02 [facility] GFR/1.73 sq M.predicted MDRD (S/P/Bld) [Vol rate/Area] mL/min/{1.73_m2} >=60 mL/min/1.73m [address] [facility] Glucose [Mass/Vol] 84 mg/dL 74-106 [facility] Potassium [Moles/Vol] 3.7 mmol/L 3.5-5.1 [facility] Protein [Mass/Vol] 7.2 g/dL 6.4-8.2 [facility] Sodium [Moles/Vol] 143 mmol/L 136-145 [facility] Urea nitrogen [Mass/Vol] 20.0 mg/dL High 7.0-18.[address] [facility] Urea nitrogen/Creatinine [Mass ratio] 19.0 mg/mg [facility] Laboratory - Hematology and Cell countson 05-01-2024 Immature granulocytes/100 WBC (Bld) 0.2 % 0.0-0.[address] [facility] Laboratory - Specimen inform ationon 05-01-2024 Appearance (U) CLEAR CLEAR [facility] Color (U) YELLOW YELLOW [facility] Laboratory - Urinalysison Leukocyte esterase Test strip Ql (U) Negative NEGATIVE [facility] Nitrite Ql (U) Negative NEGATIVE [facility] Protein Ql (U) Negative NEG/TRACE [facility] Leukocytes [#/volume] correc reji for nucleated erythrocytes in Blood by Automated counon 05-01-2024 WBC corrected for nucl RBC Auto (Bld) [#/Vol] 4.5 10 3/uL 4.0-11.[address] [facility] Lymphocytes Auto (Bld) [#/Vo l]on 05-01-2024 Lymphocytes (Bld) [#/Vol] 2.0 10 3/uL 1.2-3.[address] [facility] Lymphocytes/100 WBC Auto (Bl d)on 05-01-2024 Lymphocytes/100 WBC (Bld) 43.8 % 20.5-60.[address] [facility] MCH Auto (RBC) [Entitic mass ]on 05-01-2024 MCH (RBC) [Entitic mass] 34.5 pg High 26.7-34.[address] [facility] MCHC Auto (RBC) [Mass/Vol]on 05-01-2024 MCHC (RBC) [Mass/Vol] 33.5 g/dL 29.9-35.2 [facility] MCV Auto (RBC) [Entitic vol] on 05-01-2024 MCV (RBC) [Entitic vol] 102.9 fL High 81.0-99.0 [facility] Monocytes Auto (Bld) [#/Vol] on 05-01-2024 Monocytes (Bld) [#/Vol] 0.6 10 3/uL 0.3-0.[address] [facility] Monocytes/100 WBC Auto (Bld) on 05-01-2024 Monocytes/100 WBC (Bld) 13.8 % High 1.7-12.0 [facility] Neutrophils Auto (Bld) [#/Vo l]on 05-01-2024 Neutrophils (Bld) [#/Vol] 1.7 10 3/uL 1.4-6.[address] [facility] Neutrophils/100 WBC Auto (Bl d)on 05-01-2024 Neutrophils/100 WBC (Bld) 37.7 % Low 43.0-75.[address] [facility] No Panel Informationon 05-01 Urine Microscopic Review NO [facility] Urine Occult Blood Negative NEGATIVE [facility] Eosinophils # (Auto) 0.2 10 3/uL 0.0-0.7 [facility] Immature Granulocyte # (Auto) 0.01 10 3/uL 0.00-0.[address] [facility] No Panel InformationOrdered By: Johny Perdomo on 05-01-2024 MRSA Screening Culture [facility] Platelet mean volume Auto (B ld) [Entitic vol]on 05-01-2024 Platelet mean volume (Bld) [Entitic vol] 12.6 fL 9.5-13.[address] [facility] Platelets Auto (Bld) [#/Vol] on 05-01-2024 Platelets (Bld) [#/Vol] 266 10 3/uL 150-[address] [facility] Prothrombin time (PT)on 04-14 PT Coag (PPP) [Time] 11.3 s 9.0-11.6 [facility] RBC Auto (Bld) [#/Vol]on RBC (Bld) [#/Vol] 3.80 10 6/uL Low 4.20-5.40 [facility] Serum or plasma albumin/glob ulin mass ratioon 05-01-2024 Albumin/Globulin [Mass ratio] 0.7 {ratio} [facility] Serum or plasma anion gap de terminationon 05-01-2024 Anion gap [Moles/Vol] 13.9 mmol/L [facility] C Urineon 01-19-2024 Bacteria identified [...] Locations R1: This test was performed at: [facility], [address] [place] [address], [facility]- , , [facility] Comment on above: Performed By: #### 2 [id number] #### [facility] [address] [place] [address] Ambulatory Visit Summaryon 0 01-15-2024 Ambulatory Visit [...] Carrera, URO When: Where: [address] [place] [address] [phone] Medications What How Much When Instructions Unchanged estradiol topical (Estrace 0.1 mg/ g Cream) See instructions Apply pea-sized amound around the opening of the urethra 3 times per week for 1 month then 2 times per week after for maintenance. Pickup at [facility] Unchanged biotin (biotin 5000 mcg oral capsule) Contact prescribing physician if questions or concerns Unchanged cholecalciferol (Vitamin D3 5000 intl units oral capsule) 1 Capsules By Mouth Every day with food Contact prescribing physician if questions or concerns Unchanged fexofenadine (Mary) By Mouth Contact prescribing physician if questions or concerns Pharmacy Information [facility]: [address] [place], [place] [id number] [phone] Allergies codeine (nausea) Problems Ongoing - Any [...] intended to (more content not included)... Normal [facility] Urology Office/Clinic Noteon 01-15-2024 Urology [...] Information Gage JACOB, Katie Arteaga, URL, URO [address], [place] [address]- [phone] Additional Instructions: pt's choice on when to [...] Hyperparathyroidism Osteopeni (more content not included)... Normal [facility] Comment on above: Result Comment: Elec tronically Signed By: Katie Almonte MD\.br\Date and Time Signed: 01/15/24 23:28 EDT\.br\Electronically Co-Signed By: Yuliana Olson\.br\Date and Time Co-Signed: 01/15/24 11:27 EDT [place] 02-21-2023 Screens [id number] Normal [facility] Patient Educationon 02-21-20 Patient Education [...] these instructions at home: Medicines ? Take thub-ruf-ahrevpy and prescription medicines only as told by [...] provider. Document Revised: 02/10/2021 Document Reviewed: 02/10/2021 [email or web address] Patient Education ? 2022 [employer]. [facility] Urology Office/Clinic Noteon 02-20-2023 Urology Office/Clinic [...] medical exam (more content not included)... Normal [facility] Comment on above: Result Comment: Elec tronically Signed By: Katie Almonte MD\.br\Date and Time Signed: 02/20/23 12:03 EDT\.br\Electronically Co-Signed By: Sepideh Perez\.br\Date and Time Co-Signed: 02/20/23 11:49 EDT Covid-19 PCR (CVDTB)on 07-15 SARS-CoV-2 (COVID-19) RNA AZUL+probe Ql (Unsp spec) Not detected Normal NOT DETECTED [facility] Comment on above: Result Comment: This test is not yet approved or cleared by the [place] FDA. When there are no FDA-approved or cleared tests available, and other criteria are met, FDA can make tests available under an emergency access mechanism called an Emergency Use Authorization (EUA). The EUA for this test is supported by the [place] of Health and Human Service's (HHS's) declaration [...] SARS-CoV-2. Performed By: #### C VDTBH #### [facility] Laboratory [address] [place] [address] Dr. Manjula Arzate CREATININEon 06-13-2022 Creatinine [Mass/Vol] 0.98 mg/dL Normal 0.55-1.02 [facility] Comment on above: Performed By: #### C JESUS #### [facility] [address] [place] [address] Dr. Manjula Arzate EGFR-AF DOMINICAN >60 Normal >=60 [facility] Comment on above: Performed By: #### C JESUS #### [facility] [address] [place] [address] Dr. Manjula Arzate EGFR-NON AF DOMINICAN 55 mL/min/1.73m2 Critically low >=60 [facility] Comment on above: Performed By: #### C JESUS #### [facility] [address] [place] [address] ABD/PELV W CONon [...] by: DARIO BESS Date: 2022-06-13 17:40 Normal [facility] CT ABD/PELVIS WO CONon 11-27 CT [...] by: DARIO BESS Date: 2021-11-27 10:41 Normal [facility] Vital Signs Date Time Vital Sign Value Performing Clinician Facility 06-10-2024 15:24-0500 Body height 167.6 cm Zaida Child MD Work Phone: [facility] 06-10-2024 15:24-0500 Body mass index (BMI) [Ratio] 32.28 kg/m2 Ziada Child MD Work Phone: [facility] 06-10-2024 15:24-0500 Body weight 90.72 kg Zaida Child MD Work Phone: [facility] 06-10-2024 15:24-0500 Diastolic blood pressure 84 mm[Hg] Zaida Child MD Work Phone: [facility] 06-10-2024 15:24-0500 Systolic blood pressure 132 mm[Hg] Zaida Child MD Work Phone: [facility] 05-28-2024 11:08-0500 Body height 167.6 cm Zaida Child MD Work Phone: [facility] 05-28-2024 11:08-0500 Body mass index (BMI) [Ratio] 33.09 kg/m2 Zaida Child MD Work Phone: [facility] 05-28-2024 11:08-0500 Body temperature 97.39 [degF] Zaida Child MD Work Phone: [facility] 05-28-2024 11:08-0500 Body weight 92.99 kg Zaida Child MD Work Phone: [facility] 05-28-2024 11:08-0500 Diastolic blood pressure 84 mm[Hg] Zaida Child MD Work Phone: [facility] 05-28-2024 11:08-0500 Heart rate 72 /min Zaida Child MD Work Phone: [facility] 05-28-2024 11:08-0500 SaO2% (BldA) [Mass fraction] 97 % Zaida Child MD Work Phone: [facility] 05-28-2024 11:08-0500 Systolic blood pressure 146 mm[Hg] Zaida Child MD Work Phone: [facility] 05-19-2024 11:18-0500 Body height 165.1 cm [facility] 05-19-2024 11:18-0500 Body mass index (BMI) [Ratio] 33.1 kg/m2 [facility] 05-19-2024 11:18-0500 Body weight 90.26 kg [facility] 05-19-2024 11:18-0500 Diastolic blood pressure 76 mm[Hg] [facility] 05-19-2024 11:18-0500 Heart rate 91 /min [facility] 05-19-2024 11:18-0500 Systolic blood pressure 114 mm[Hg] [facility] 05-07-2024 14:39-0400 Body height 165.1 cm [facility] 05-07-2024 14:39-0400 Body mass index (BMI) [Ratio] 33.7 kg/m2 [facility] 05-07-2024 14:39-0400 Body weight 92.07 kg [facility] 05-07-2024 14:39-0400 Diastolic blood pressure 79 mm[Hg] [facility] 05-07-2024 14:39-0400 Heart rate 76 /min [facility] 05-07-2024 14:39-0400 Systolic blood pressure 116 mm[Hg] [facility] 04-29-2024 08:21-0400 Body height 165.1 cm [facility] 04-29-2024 08:21-0400 Body mass index (BMI) [Ratio] 33.8 kg/m2 [facility] 04-29-2024 08:21-0400 Body weight 92.3 kg [facility] 04-29-2024 08:21-0400 Diastolic blood pressure 82 mm[Hg] [facility] 04-29-2024 08:21-0400 Heart rate 74 /min [facility] 04-29-2024 08:21-0400 Respiratory rate 16 /min [facility] 04-29-2024 08:21-0400 SaO2% (BldA) [Mass fraction] 96 % [facility] 04-29-2024 08:21-0400 Systolic blood pressure 120 mm[Hg] [facility] 01-24-2024 10:54-0400 Body height 165.1 cm [facility] 01-24-2024 10:54-0400 Body mass index (BMI) [Ratio] 35.6 kg/m2 [facility] 01-24-2024 10:54-0400 Body weight 97.06 kg [facility] 01-24-2024 10:54-0400 Diastolic blood pressure 81 mm[Hg] [facility] 01-24-2024 10:54-0400 Heart rate 71 /min [facility] 01-24-2024 10:54-0400 Systolic blood pressure 121 mm[Hg] [facility] 01-15-2024 10:37-0400 Blood Pressure Location Katie Lue [facility] 01-15-2024 10:37-0400 Body temperature 97.88 [degF] Katie Lue [facility] 01-15-2024 10:37-0400 Diastolic blood pressure 78 mm[Hg] Katie Lue [facility] 01-15-2024 10:37-0400 Heart rate 71 /min Katie Lue [facility] 01-15-2024 10:37-0400 Systolic blood pressure 132 mm[Hg] Katie Lue [facility] 02-20-2023 10:53-0400 Blood Pressure Location Katie Lue [facility] 02-20-2023 10:53-0400 Diastolic blood pressure 76 mm[Hg] Katie Lue [facility] 02-20-2023 10:53-0400 Heart rate 68 /min Katie Lue [facility] 02-20-2023 10:53-0400 Respiratory rate 16 /min Katie Lue [facility] 02-20-2023 10:53-0400 Systolic blood pressure 130 mm[Hg] Katie Lue [facility] 08-22-2022 11:50-0500 Blood Pressure Location Katie Lue [facility] 08-22-2022 11:50-0500 Diastolic blood pressure 78 mm[Hg] Katie Lue [facility] 08-22-2022 11:50-0500 Heart rate 68 /min Katie Lue [facility] 08-22-2022 11:50-0500 Respiratory rate 16 /min Katie Lue [facility] 08-22-2022 11:50-0500 Systolic blood pressure 132 mm[Hg] Katie Lue [facility] 12-05-2021 10:33-0400 Diastolic blood pressure 81 mm[Hg] Mally Key Jr. [facility] 12-05-2021 10:33-0400 Mean blood pressure 101 mm[Hg] Mally Key Jr. [facility] 12-05-2021 10:33-0400 Systolic blood pressure 142 mm[Hg] Mally Key Jr. [facility] 12-05-2021 10:12-0400 Blood Pressure Location Mally Key Jr. [facility] 12-05-2021 10:12-0400 Diastolic blood pressure 97 mm[Hg] Mally Key Jr. [facility] 12-05-2021 10:12-0400 Heart rate 87 /min Mally Key Jr. [facility] 12-05-2021 10:12-0400 Respiratory rate 16 /min Mally Key Jr. [facility] 12-05-2021 10:12-0400 Systolic blood pressure 163 mm[Hg] Mally Key Jr. [facility] Encounters Encounter Date Encounter Type Care Provider Facility Start: 06-10-2024 End: 06-10-2024 Office outpatient visit 15 minutes Zaida Child MD Work Phone: [facility] Comment on above: Superficial phlebiti s and thrombophlebitis of right lower extremity (Primary Dx); Varicose veins of bilateral lower extremities with pain Start: 06-10-2024 End: 06-10-2024 ambulatory [facility] Start: 06-03-2024 End: 06-04-2024 Orders Only Rosanne Merrill LPN [facility] Start: 05-28-2024 End: 05-28-2024 Office outpatient new 30 minutes Zaida Child MD Work Phone: [facility] Comment on above: Superficial phlebiti s and thrombophlebitis of right lower extremity (Primary Dx); Right leg pain; Phlebitis and thrombophlebitis of unspecified site; Varicose veins of bilateral lower extremities with pain Start: 05-19-2024 End: 05-19-2024 ambulatory [facility] Work Phone: Start: 05-19-2024 End: 05-19-2024 Patient encounter procedure [facility] Work Phone: Start: 05-07-2024 Non-patient / Non-visit [facility] Work Phone: Start: 05-07-2024 End: 05-07-2024 ambulatory [facility] Work Phone: Start: 05-07-2024 End: 05-07-2024 Patient encounter procedure [facility] Work Phone: Start: 2024 Non-patient / Non-visit [facility] Work Phone: Start: 05-01-2024 Patient encounter status [facility] Start: 05-01-2024 Non-patient / Non-visit [facility] Phys[facility] Work Phone: Start: 04-29-2024 End: 04-29-2024 ambulatory [facility] Work Phone: Start: 04-29-2024 End: 04-29-2024 [facility] Work Phone: Start: 04-10-2024 End: 04-10-2024 ambulatory Johny aRy Perdomo DO Facility:[facility] Start: 03-20-2024 ambulatory Johnytae willis DO Facility:[facility] Start: 02-05-2024 Patient encounter procedure [facility] Start: 01-24-2024 End: 01-24-2024 ambulatory [facility] Work Phone: Start: 01-24-2024 End: 01-24-2024 [facility] Work Phone: Start: 01-15-2024 End: 01-15-2024 ambulatory Katie Josée [place] Start: 01-15-2024 End: 01-15-2024 Lab Drop off Katie Josée [facility] Start: 01-15-2024 End: 01-15-2024 ambulatory Katie M. Lue Facility:[facility] Start: 01-15-2024 End: 01-15-2024 Patient encounter procedure Katie MPadilla Josée [facility] Start: 08-01-2023 End: 08-01-2023 ambulatory Hafsa Knowles Other [facility] [facility] Other Start: 08-01-2023 Telephone encounter Hafsa Benson [facility] Start: 07-30-2023 End: 07-30-2023 ambulatory Hafsa Benson Other [facility] Other Start: 07-30-2023 Telephone encounter Hafsa Knowles [facility] Start: 02-20-2023 End: 02-20-2023 ambulatory Katie Almonte Facility:[facility] Start: 02-20-2023 End: 02-20-2023 Patient encounter procedure Katie Almonte [facility] Start: 08-22-2022 End: 08-22-2022 Patient encounter procedure Katie Almonte [facility] Start: 08-01-2022 End: 08-01-[address] ANTWON BAKER Facility:[facility] Start: 07-30-2022 End: 07-31-[address] ANTWON BAKER Facility:[facility] Start: 07-12-2022 Adult health examination Vanessa Knowles Other [facility] Other Start: 06-13-2022 End: 06-14-[address] HAFSA KNOWLES Facility:[facility] Start: 12-05-2021 End: 12-05-2021 Patient encounter procedure Mally Key Jr. [facility] Start: 11-27-2021 End: 11-28-[address] [...] Author Start: 06-10-2025 Tobacco Screening Tobacco Screening [facility] Start: 05-28-2025 Tobacco Screening Tobacco Screening [facility] Start: 06-25-2024 End: 06-25-2024 Patient encounter procedure 06/25/2024 9:20 AM EST Office Visit [facility] [address] [place] [phone] Zaida Child MD [address], [address] [address] [facility] Start: 06-18-2024 End: 06-18-2024 Patient encounter procedure 06/18/2024 10:20 AM EST Office Visit [facility] [address] [place] [phone] Zaida Child MD [address] [address] [facility] Start: 05-19-2024 Patient referral [facility] Work Phone: Start: 03-15-2024 COVID-19 Vaccine ( season) COVID-19 Vaccine ( season) [facility] Start: 07-20-2023 Tobacco Screening Tobacco Screening [facility] Start: 2012 Fall Risk Screening Fall Risk Screen ing [facility] Start: 1966 DTaP,Tdap and Td Vaccines (1 - Tdap) DTaP,Tdap and Td Vaccines (1 - Tdap) [facility] Start: 1959 Depression Screening Depression Scre ening [facility] DXA Skeletal system.axial Views for bone density [facility] MG Breast - bilatera l Screening [facility] Patient referral [facility] Work Phone: [place] Lower extremity v ein - right [facility] XR Tibia and Fibula - right [address] [facility] Immunizations Immunization Date Immunization Notes Care Provider Fa cility 04-10-2022 SARS-CoV-2 (COVID-19 ) [id number] Katie Lue [facility] 04-11-2021 SARS-CoV-2 (COVID-19 ) mRNA BNT-162b2 vax Katie Lue [facility] 02-15-2021 zoster vaccine recombinant Katie Lue [facility] 11-30-2020 zoster vaccine recombinant Katie Lue [facility] 08-30-2020 SARS-CoV-2 (COVID-19 ) mRNA BNT-162b2 vax Katie Lue [facility] Comment on above: Result Comment: 2022: [id number] 08-09-2020 SARS-CoV-2 (COVID-19 ) mRNA BNT-162b2 vax Katie Almonte [facility] Comment on above: Result Comment: 2022: [id number] 05-16-2020 influenza virus vaccine, split virus (incl. purified surface antigen) Hafsa Knowles Other [facility] Other 05-16-2020 influenza virus vaccine, unspecified formulation [facility] 04-26-2020 influenza virus vaccine, unspecified formulation Katie Almonte [facility] 12-16-2018 pneumococcal polysaccharide vaccine, 23 valent Hafsa Knowles Other [facility] 11-07-2017 pneumococcal conjuga te vaccine, 13 valent Mlaly Key Jr. [facility] 11-07-2017 pneumococcal Conjuga te, unspecified formulation; Translations: [Need for prophylactic vaccination against Streptococcus pneumoniae (pneumococcus)] Hafsa Knowles Other [facility] [employer] Other 10-13-2017 pneumococcal polysaccharide vaccine, 23 valent Katie Lue [facility] 04-14-2017 influenza virus vaccine, unspecified formulation Katie Lue [facility] Payers Date Payer Category Payer Commercial Indemnity [facility] [id number] 2012 Medicare 2012 Unknown 1957 Medicare [id number] 1959 Unknown [id number] 1947 Unknown [id number] 93 1947 Unknown [id number] 93 1947 Unknown [id number] 93 1947 Unknown [id number] 93 1947 Unknown [id number] 27 1947 Unknown [id number] 27 1947 Unknown [id number] 27 1947 Unknown [id number] 96 1947 Unknown [id number] 286 Medicare Medicare [id number] Social History Date Type Detail Facility Start: 12-05-2021 End: 07-18-2022 Tobacco smoking status Never smoked tobacco (finding) [facility] Start: 05-28-2024 End: 06-10-2024 Sex Assigned At Female [facility] Tobacco smoking status Never [facility] Start: 1945 Sex Assigned At Female F [facility] Start: 07-18-2022 Tobacco use and exposure Smokeless tobacco non-user [facility] Start: 05-28-2024 End: 06-10-2024 Alcoholic beverage intake Lifetime non-drinker (finding) [facility] Start: 05-28-2024 End: 06-10-2024 History of Social function [facility] Start: 07-18-2022 Alcohol Comment rare [facility] [employer] [facility] Start: 1945 Sex assigned at Not on file P [facility] Start: 05-31-2021 Sex Female (finding) [facility] Functional Status Date Assessment Result Facility 01-15-2024 Functional Status N/A [facility] 02-20-2023 Functional Status N/A [facility] 08-22-2022 Functional Status N/A [facility] Clinical Notes 12-05-2021 to 06-10-2024 Assessment & [...] ultrasound compression stockings leg elevation and exercise. [facility] 06-10-2024 Evaluation + Plan note Associated Problem(s): Superficial phlebitis and thrombophlebitis of right lower extremity Warm compresses nonsteroidal anti-inflammatory drugs leg elevation and compression therapy. We will get venous reflux ultrasound and rule out DVT as well. [facility] 06-10-2024 Miscellaneous Notes Associated Problem(s): Varicose veins of bilateral lower extremities with pain Venous reflux ultrasound compression stockings leg elevation and exercise. Associated Problem(s): Superficial phlebitis and thrombophlebitis of right lower extremity Warm compresses nonsteroidal anti-inflammatory drugs leg elevation and compression therapy. We will get venous reflux ultrasound and rule out DVT as well. documented in this encounter [facility] 06-10-2024 History of Presen t illness Narrative [...] 06/14/2021 Performed by Vic Hitchcock DO at [facility] BREAST SURGERY bx, marker in place left [...] Zaida Child MD, TRIPP, RPVI, FSVS, FACS [facility] This note was created with the assistance of a speech recognition program. While intending to generate a timely document that accurately reflects the content of the visit, no guarantee can be provided that every grammatical or spelling mistake has been or will be identified or corrected. Thank you for your understanding. documented in this encounter [facility] 05-28-2024 Evaluation + Plan note Associated Problem(s): Varicose veins of bilateral lower extremities with pain Compression stockings leg elevation exercise. Venous reflux ultrasound. [facility] 05-28-2024 Miscellaneous Notes Associated Problem(s): Varicose veins of bilateral lower extremities with pain Compression stockings leg elevation exercise. Venous reflux ultrasound. Associated Problem(s): Superficial phlebitis and thrombophlebitis of right lower extremity Nonsteroidal anti-inflammatory drugs warm compresses leg elevation and compression therapy when possible documented in this encounter [facility] 05-28-2024 Evaluation + Plan note Associated Problem(s): Superficial phlebitis and thrombophlebitis of right lower extremity Nonsteroidal anti-inflammatory drugs warm compresses leg elevation and compression therapy when possible [facility] 05-28-2024 History of Presen t illness Narrative [...] given by office. Patient was given a [employer] coupon voucher to use, this is not [...] 06/14/2021 Performed by Vic Hitchcock DO at [facility] BREAST SURGERY bx, marker in place left [...] pain - [facility] [place] [place] Phlebitis and thrombophlebitis of unspecified site - [facility] [place] Varicose veins of bilateral lower extremities with pain Zaida Child MD, TRIPP, RPVI, FSVS, FACS [facility] This note was created with the assistance of a speech recognition program. While intending to generate a timely document that accurately reflects the content of the visit, no guarantee can be provided that every grammatical or spelling mistake has been or will be identified or corrected. Thank you for your understanding. documented in this encounter [facility] 04-10-2024 Note Procedure: MRI of th e [...] Signed, Electronically Signed in Other Vendor System) [facility] 04-10-2024 Note Procedure: MRI of th e [...] Signed, Electronically Signed in Other Vendor System) [facility] 01-15-2024 Evaluation + Plan note Diagnostic Tests PendingUrine Culture 01/15/24 [facility] 01-15-2024 Hospital Discharg e instructions [...] provider. Document Revised: 11/09/2021 Document Reviewed: 11/09/2021 [email or web address] Patient Education 2022 [employer]. Follow Up Care 02/20/2023 12:02:25 With:Gage JACOB, KEKE Carrera, URO Address: [address] [place] [phone] When: Unknown [facility] Note Patient Education Obstetrics and Gynecology [...] provider. Document Revised: 11/09/2021 Document Reviewed: 11/09/2021 [email or web address] Patient Education ? 2022 [employer]. [facility] 07-30-2023 Evaluation note Encounter Date Diagnosis Assessment Notes Jul, Acute non-recurrent maxillary sinusitis (ICD-10 - J01.00) [facility] Other 08-09-2023 Hospital Discharge instructions Patient Education 02/20/2023 09:58:29 Urinary Tract Infection, Adult, Jkqe-pw-Vwce Urinary Tract Infection, Adult A urinary tract [...] Follow these instructions at home: Medicines Take hnqq-hvz-oscwska and prescription medicines only as told by [...] provider. Document Revised: 02/10/2021 Document Reviewed: 02/10/2021 [email or web address] Patient Education 2022 [employer]. Follow Up Care 08/22/2022 12:56:32 With:Gage JACOB, KEKE Carrera, URO Address: When:Within 1 Year(s) [facility] 02-08-2023 Hospital Discharge instructions Patient Education 08/22/2022 [...] 06/17/2013 Document Revised: 02/18/2019 Document Reviewed: 02/18/2019 [email or web address] Patient Education 2020 [employer]. Follow Up Care 06/13/2022 11:42:12 With:Gage JACOB, KEKE Carrera, URO Address: When: Unknown [facility] 05-24-2022 Hospital Discharge instructions Patient Education 12/05/2021 [...] provider gives to you. In general: Take indx-axj-auaeuxl and prescription medicines only as told by [...] 01/26/2015 Document Revised: 08/07/2018 Document Reviewed: 08/07/2018 [email or web address] Patient Education 2020 [employer]. Follow Up Care 06/07/2021 13:20:37 With:Shahid Ontiveros MD, Mally Mendiola, URO Address: [facility] [address], [place] [address]- When: Unknown [facility] evalalxjef + Plan note No data available for this section [facility] evaluation + Plan note Future Appointments Appointment Date:02/20/2023 10:45:00 AM Scheduled Provider:Katie Almonte MD Location:[facility] Appointment Type:URO Office Visit [facility] evaluation + Plan note Future Appointments Appointment Date:02/26/2024 10:45:00 AM Scheduled Provider:Katie Almonte MD Location:[facility] Appointment Type:URO Office Visit [facility] evaluation noteNo InformationNort [employer] Other evaluation note* Diagnosis Onset Date Resolution Status Menopausal and postmenopausal disorder acute Screening mammogram for breast cancer acute [facility] Work Phone: evaluation noteNo assessment information available [facility] Work Phone: evaluation note* Diagnosis Onset Date Resolution Status Preoperative examination acu te Right leg pain acute [facility] Work Phone: Evaluation note* Diagnosis Onset Date Resolution Status Preoperative examination acu te Right leg pain acute Phlebitis acute Right leg pain acute [facility] Work Phone: Evaluation note* Diagnosis Superficial [...] ABOVE SURGERY Hospitalization History CHILD X'S 2 [facility] Other Hospital Discharge instructions No data available for this section [facility] instructions[facility] Orders* Referral to Vascular Surgery Time Frame: 05/19/24, Location: None [facility] Work Phone: InstructionsNot on filedocumented in this encounter [facility] filedocumented in this encounter [facility]Not on filedocumented in this encounter [facility] No data available for this section [facility] Summary Purpose Family History No Family [...] and content) DATE CREATED AUTHOR 08/02/2022 [facility] [place] [facility] DATE CREATED AUTHOR AUTHOR'S ORGANIZ ATION [facility] DATE CREATED AUTHOR AUTHOR'S ORGANIZ ATION 01/19/2024 [facility] DATE CREATED AUTHOR AUTHOR'S ORGANIZ ATION 04/11/2024 [facility] DATE CREATED AUTHOR AUTHOR'S ORGANIZ ATION 06/13/2024 [facility] Patient Care team informatio n (unrecognized section [...] May 19, 2024 End: May 19, 2024 [employer] 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 [place] [address] [place] [address] PCP - General Family Medicine 06/01/21 [employer] 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 Start Date End Date Hafsa Knowles MD [address] [place] [address] PCP - General Family Medicine 06/01/21 [employer] 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 Start Date End Date Hafsa Knowles MD [address] [place] [address] PCP - General Family Medicine 06/01/21 REASON FOR VISIT (unrecogniz ed section and content) Reason Comments new patient - right leg pain after cellu litis Specialty Diagnoses / Procedures Referred By Mara gamez Referred To Contact Vascular Surgery Diagnoses Right leg pain Phlebitis and thrombophlebit[place] [address] [place] [phone] Phone: tel: fax: [facility] [address] [place] [phone] Phone: tel: fax: Referral ID Status Reason Start Date Expiration Date Visits Requested Visits Authorized [id number] Pending Review Specialty Services Required 05/20/2024 05/20/2025 [...] BE BASED ON THE PRIMARY CLINICAL RECORDS. [facility]. provides no warranty or guarantee of the accuracy or completeness of information in this document.
[2024-06-26 10:30] VITALS: BP 124/76; PULSE 64; O2SAT 99
== END 2024-06-26 10:56 | disposition home or self-care (01) ==
LOC: VC 10:20
PROVIDERS: PCP Radiology Diagnostic Radiology; Visit Provider Radiology Diagnostic Radiology
DX: I83.813 Varicose veins of bilateral lower extremities with pain (principal)
CPT/HCPCS: 36478

== ENCOUNTER 2024-06-30 10:47 | Outpatient (OUT) | payer MEDICARE, OTHER, SELFPAY ==
--- NOTE | 2024-06-29 15:51 | V.VEINS.HP ---
Varicose Veins Patient in this day for follow up ultrasound post EVLT of left AASV Quentin Michel MD personally performed the services described in this documentation, as scribed by Anat Belle RVT, RDMS in my presence and it is both accurate and complete. Anat Michel RVT, RDMS, am scribing for, and in the presence of, Dr. Quentin Hernandez and in the presence of the patient. thigh: bilateral, knee: bilateral, calf: bilateral, ankle: bilateral and anderson: bilateral aching, sharp and tender 3 8 weeks Worsened in recent months: Yes standing analgesics, elevating extremities and compression stockings Reports erythema, bruising, heaviness, limb pain, edema and leg edema History of lower extremity trauma: No Superficial thrombophlebitis: Yes Family history of varicose veins: yes Has patient had previous lower extremity venous surgery: No Patient has previously received the following treatment(s) for lower extremity varicose veins: Reports none Does patient have a history of : yes Does patient intend to have future pregnancies: no Has patient had lower extremity venous scan with relux testing: Yes Support hose used: Yes Problems walking or doing physical activity: Yes How does it affect you: Unable to stand for long periods of time Do you walk much: Yes Do you stand much: Yes Review of Systems ROS Narrative Quentin Michel MD personally performed the services described in this documentation, as scribed by Anat Belle RVT, RDMS in my presence and it is both accurate and complete. Anat Michel RVT, RDMS, am scribing for, and in the presence of, Dr. Quentin Hernandez and in the presence of the patient. Status of ROS 10 or more systems reviewed and unremarkable except as noted in history and below Cardiovascular Reports: edema and swelling of feet/ankles Musculoskeletal Reports: extremity pain, extremity swelling, joint pain, joint swelling and muscle cramps Integumentary/Breast Reports: itching, redness, skin pain, skin tenderness, skin swelling and sores PFSH [facility] Medical History (Updated 06/30/24 @ 11:07 by Anat Belle) Phlebitis and thrombophlebitis of superficial vessels of left lower extremity ?I80.02 - Phlebitis and thrombophlebitis of superficial vessels of left lower extremity (ICD-10) Pain due to varicose veins of both lower extremities ?I83.813 - Varicose veins of bilateral lower extremities with pain (ICD-10) Raynaud disease ?I73.00 - Raynaud's syndrome without gangrene (ICD-10) Arthritis ?M19.90 - Unspecified osteoarthritis, unspecified site (ICD-10) History of ITP (1989) ?Z86.2 - Personal history of diseases of the blood and blood-forming organs and certain disorders involving the immune mechanism (ICD-10) History of blood transfusion ?Z92.89 - Personal history of other medical treatment (ICD-10) Thyroid cyst ?E04.1 - Nontoxic single thyroid nodule (ICD-10) Phlebitis ?I80.9 - Phlebitis and thrombophlebitis of unspecified site (ICD-10) Varicose vein of leg ?I83.90 - Asymptomatic varicose veins of unspecified lower extremity (ICD-10) Knee pain ?M25.569 - Pain in unspecified knee (ICD-10) Seasonal allergic rhinitis ?J30.2 - Other seasonal allergic rhinitis (ICD-10) Cataracts, bilateral ?H26.9 - Unspecified cataract (ICD-10) Hyperparathyroidism ?E21.3 - Hyperparathyroidism, unspecified (ICD-10) Renal cyst ?N28.1 - Cyst of kidney, acquired (ICD-10) Osteopenia ?M85.80 - Other specified disorders of bone density and structure, unspecified site (ICD-10) Vitamin D deficiency ?E55.9 - Vitamin D deficiency, unspecified (ICD-10) Chronic UTI ?N39.0 - Urinary tract infection, site not specified (ICD-10) Genu varum of right lower extremity ?M21.161 - Varus deformity, not elsewhere classified, right knee (ICD-10) Primary osteoarthritis of right knee ?M17.11 - Unilateral primary osteoarthritis, right knee (ICD-10) Surgical History (Updated 05/01/24 @ 08:42 by Francesca Zavala NP) History of colonoscopy ?Z98.890 - Other specified postprocedural states (ICD-10) H/O knee surgery ?Z98.890 - Other specified postprocedural states (ICD-10) H/O breast biopsy ?Z98.890 - Other specified postprocedural states (ICD-10) History of cholecystectomy ?Z90.49 - Acquired absence of other specified parts of digestive tract (ICD-10) H/O oophorectomy H/O parathyroidectomy ?Z98.890 - Other specified postprocedural states (ICD-10) ?Z90.89 - Acquired absence of other organs (ICD-10) History of hysterectomy ?Z90.710 - Acquired absence of both cervix and uterus (ICD-10) H/O tubal ligation ?Z98.51 - Tubal ligation status (ICD-10) H/O splenectomy (1989) ?Z90.81 - Acquired absence of spleen (ICD-10) S/P arthroscopic knee surgery ?Z98.890 - Other specified postprocedural states (ICD-10) Family History (Updated 06/16/24 @ 10:21 by Hilda Reyes RN) Mother Varicose veins of bilateral lower extremities with pain Father Family history of myocardial infarction Other Cancer Family history of DVT Family history of cancer Social History (Updated 05/01/24 @ 08:31 by Francesca Zavala NP) Within the past year, how often did you have a drink containing alcohol: never Score interpretation: A score less than 3 is consistent with normal alcohol consumption. 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 Highest level of school completed/degree received: some college, no degree Little interest or pleasure in doing things: not at all Feeling down, depressed, or hopeless: not at all Meds Home Medications and Allergies Home Medications ?Medication ?Instructions ?Recorded ?Confirmed ?Type biotin 5 mg capsule 5 mg PO DAILY 05/01/24 06/16/24 History cholecalciferol (vitamin D3) 125 125 mcg PO DAILY 05/01/24 06/16/24 History mcg (5,000 unit) capsule cranberry 500 mg capsule 500 mg PO DAILY 05/01/24 06/16/24 History d-mannose 500 mg capsule mg PO 05/01/24 History estradiol 0.01% (0.1 mg/gram) 0.5 appful vaginal .twice a week 05/01/24 06/16/24 History vaginal cream loratadine 10 mg capsule 10 mg PO DAILY 05/01/24 06/16/24 History ali11-[id number] 30 mg-folic cap PO 06/16/24 History acid 1 mg-dss 50 mg-dha 260 mg capsule Allergies Allergy/AdvReac Type Severity Reaction Status Date / Time codeine AdvReac Nausea Verified 05/01/24 08:26 Exam Narrative Exam Narrative: Quentin Michel MD personally performed the services described in this documentation, as scribed by Anat Belle RVT, RDMS in my presence and it is both accurate and complete. Anat Michel RVT, RDMS, am scribing for, and in the presence of, Dr. Quentin Hernandez and in the presence of the patient. Constitutional Documenting provider has reviewed patient's vital signs: yes Common normals: oriented x3 Nutritional appearance: overweight Lymph Lymphatic: no lymphedema noted Cardio Peripheral pulses: posterior tibial pulses present and dorsalis pedis pulses present Extremity General: calf tenderness, edema and other findings Right lower extremity: lower leg Right lower leg: inspection and palpation Left lower extremity: lower leg Left lower leg: inspection and palpation Other: Right mid medial calf healed wound 1.0x1.5cm Neuro Common normals: oriented x3 Results Imaging Venous US: Radiologist's impression: The ultrasound demonstrates Heat induced thrombus visualized 1.9cm from the SFJ. The heat induced thrombus extends from groin to mid thigh. Assessment and Plan Assessment and Plan (1) Phlebitis and thrombophlebitis of superficial vessels of left lower extremity: Plan Patient in today for follow up ultrasound of lower extremity following treatment of EVLT of left leg AASV completed on 06/25/24. Quentin Michel MD personally performed the services described in this documentation, as scribed by Anat Belle RVT, RDMS in my presence and it is both accurate and complete. Anat Michel RVT, RDMS, am scribing for, and in the presence of, Dr. Quentin Hernandez and in the presence of the patient.
--- NOTE | 2024-06-30 10:54 | VEIN_ITS ---
Patient Name: BHAVESH MONTEIRO MR#: [id number] : 1945 Exam Date: 06/30/2024 Ordering Doctor: DR QUENTIN HERNANDEZ M.D. RADIOLOGY REPORT PROCEDURE: VC EXT VENOUS LT LIMITED COMPARISON: None. INDICATIONS: I80.02 - Phlebitis and thrombophlebitis of superficial ve... TECHNIQUE: Lower extremity rucker scale and Duplex Doppler evaluation of the deep venous system from the inguinal ligament through the calf veins. FINDINGS: REGION: Left lower extremity. THROMBI: Negative for DVT. Heat induced thrombus visualized 1.9cm from the SFJ. The heat induced thrombus extends from groin to mid thigh. COMPRESSIBILITY: Non-compressible & partially compressible segments. FLOW: Normal waveform and antegrade flow between 5 and 20 cm/s. CONCLUSION: Post ablation occlusion of the treated left anterior accessory saphenous vein with heat induced thrombus 1.9 cm from the saphenofemoral junction Dictated by: Quentin Hernandez MD on 06/30/2024 at 11:25 Approved by: Quentin Hernandez MD on 06/30/2024 at 11:26
--- NOTE | 2024-06-30 10:54 | VEIN_ITS ---
Patient Name: BHAVESH MONTEIRO MR#: [id number] : 1945 Exam Date: 06/30/2024 Ordering Doctor: DR QUENTIN HERNANDEZ M.D. RADIOLOGY REPORT PROCEDURE: [facility] - OFFICE VISIT FOLLOW UP COMPARISON: None. PROGRESS NOTES: The patient reports no significant problems following intravenous laser ablation of the left anterior accessory saphenous vein. The patient or her compression stocking. The patient did not require oral analgesics. Moderate bruising in the anterior left thigh likely related to tumescence injection. No erythema or warmth to suggest cellulitis thrombophlebitis. No active ulceration. The incision is healed. Review of the ultrasound performed the same day demonstrates occlusive thrombus extending throughout the treated left anterior accessory saphenous vein with heat induced thrombus 1.9 cm from the saphenofemoral junction, no deep vein thrombus. The patient expressed a desire to proceed with treatment of incompetent right great saphenous vein. VEIN/VC Facility EST LMTD IMPRESSION: 1. Successful ablation of the left anterior accessory saphenous vein 2. Persistent incompetent right great saphenous vein. PLAN: Intravenous laser ablation right great saphenous vein Nurse notes, history and physical were reviewed and confirmed, see attached forms. The nurse was present throughout the physical exam and consultation Dictated by: Quentin Hernandez MD on 06/30/2024 at 11:27 Approved by: Quentin Hernandez MD on 06/30/2024 at 11:33
--- OUTSIDE RECORDS SUMMARY | 2024-06-30 11:01 | XMS_ITS | CCD ---
Author Organization [facility] Care Team Providers Care Step Finisher Name Role Phone HAFSA KNOWLES Primary Care [...] SHAHID ORTEGA, DR MALLY Mendiola Consulting Unavailparadise BAKRE, DR ANTWON Sharma Admitting Unavailparadise BAKER, DR [...] Allergy 12-26-19 16 Nausea [facility] (1 source) Codeine Drug Allergy [facility] Repository (2 sources) Acetaminophen / HYDROcodone Drug Allergy Unknown [facility] Other (2 sources) Codeine Drug Allergy Unknown [facility] Other (2 sources) patient allergy list reviewed by nurse or physicia Propensity to adverse reactions 04-29-20 15 Comment:Done [facility] Other (2 sources) Allergies Reconciled Propensity to adverse reactions Unknown [facility] Other (4 sources) Acetaminophen Drug Allergy 01-24-20 [facility] (4 sources) HYDROcodone Drug Allergy 01-24-20 [facility] Medications Current Medications Medication Drug Class(es) Dates [...] mouth. Active take 1 capsule by [facility] once daily Biotin 5000 5 MG [...] 2 times per week after for maintenance., [facility], 168, cm, 01/15/24 10:54:00 EDT, Height/Length Dosing, 96, kg, 01/15/24 10:54:00 EDT, Weight Dosing Start Date: 01/15/24 Status: Ordered Start: 08-22-2022 Estrace 0.1 mg /g Cream See Instructions, 42.5 gm, Refill(s) 6, Apply pea-sized amound around the opening of the urethra 3 times per week for 1 month then 2 times per week after for maintenance., [facility], 168, cm, 08/22/22 11:52:00 EST, [...] given by office. Patient was given a [employer] coupon voucher to use, this is not to be ran through patients insurance. 24 tablet 07/18/2022 Active sulfamethoxazole 800 mg / trimethoprim 160 mg oral tablet (3 sources) Dihydrofolate Reductase Inhibitor Antibacterial, Sulfonamide Antimicrobial Start: 05-08-2024 take 1 tablet by mouth twice daily Sulfamethoxazole-Trimethoprim Active 1 TAB PO Twice daily May 07, 2024 11:00pm Start: 06-25-2023 take 1 tablet by [facility] every twelve hours Bactrim DS 800-160 MG 1 tablet Orally Twice a day for 10 day(s) Jun, Active Vitamin D-3 1000 UNIT (2 sources) take 1 capsule by [facility] once daily Vitamin D-3 1000 UNIT [...] 2:53pm Start: 12-05-2021 take 1 capsule by [facility] every twelve hours Keflex 500 mg Cap 500 mg = 1 cap(s), Oral, q12hr, # 6 cap(s), Refills(s) 0, Pharmacy: [facility], 168, cm, 12/05/21 10:16:00 EDT, Height/Length Dosing, 97.5, kg, 12/05/21 10:16:00 EDT, Weight Dosing Start Date: 12/05/21 Status: Ordered omeprazole 40 mg delayed release oral capsule (6 sources) Proton Pump Inhibitor Start: 01-21-2024 End: 01-24-2024 take 40 mg by mouth once daily Omeprazole Discontinued 40 MG PO Daily January 20, 2024 11:00pm January 24, 2024 10:02am Start: 09-05-2020 take 1 capsule by [facility] once daily Omeprazole 40 MG Omeprazole [...] aPTT Coag (PPP) [Time] 30.5 s 22.3-36.2 [facility] Basophils Auto (Bld) [#/Vol] on 05-01-2024 Basophils (Bld) [#/Vol] 0.0 10 3/uL 0.0-0.1 [facility] Basophils/100 WBC Auto (Bld) on 05-01-2024 Basophils/100 WBC (Bld) 0.7 % 0.2-2.0 [facility] Eosinophils/100 WBC Auto (Bl d)on 05-01-2024 Eosinophils/100 WBC (Bld) 3.8 % 0.9-7.0 [facility] Erythrocyte distribution wid th Auto (RBC) [Ratio]on 05-01-2024 Erythrocyte distribution width (RBC) [Ratio] 14.4 % 11.0-15.0 [facility] Estimated glomerular filtrat ion rate (GFR) non- Americanon 05-01-2024 GFR/1.73 sq M.predicted among non-blacks MDRD (S/P/Bld) [Vol rate/Area] 51 mL/min/{1.73_m2} Low >=60 mL/min/1.73m 2 [facility] Globulin Calc (S) [Mass/Vol] on 05-01-2024 Globulin (S) [Mass/Vol] 4.3 g/dL [facility] Hematocrit Auto (Bld) [Volum e fraction]on 05-01-2024 Hematocrit (Bld) [Volume fraction] 39.1 % 36.0-48.0 [facility] Hemoglobin [Mass/volume] in Bloodon 05-01-2024 Hemoglobin (Bld) [Mass/Vol] 13.1 g/dL 12.0-16.0 [facility] INR in Platelet poor plasma by Coagulation assayon 05-01-2024 INR Coag (PPP) [Relative time] 1.07 {INR} [facility] Comment on above: DESIRED INR:2.0-3.0 CONDITIONS NOT LISTED BELOW2.5-3.5 FOR PROSTHETIC HEART VALVE REPLACEMENT2.5-3.5 RECURRENT THROMBOSIS Laboratory - Chemistry and C hemistry - challengeon 05-01-2024 Bilirubin Ql (U) Negative NEGATIVE [facility] Glucose (U) [Mass/Vol] Negative NEGATIVE [facility] Ketones Ql (U) Negative NEGATIVE [facility] pH (U) 6.0 [pH] 5.0-9.0 [facility] Specific gravity (U) [Rel density] 1.020 1.005-1.025 [facility] Urobilinogen Qn (U) 0.2 {Diana'U}/dL 0.2-1.0 [facility] Albumin [Mass/Vol] 2.9 g/dL Low 3.4-5.0 [facility] ALP [Catalytic activity/Vol] 196 U/L High 46-116 [facility] ALT [Catalytic activity/Vol] 44 U/L 14-59 [facility] AST [Catalytic activity/Vol] 51 U/L High 15-37 [facility] Bilirubin [Mass/Vol] 0.7 mg/dL 0.2-1.0 [facility] Bilirubin.direct [Mass/Vol] 0.2 mg/dL 0.0-0.2 [facility] Calcium [Mass/Vol] 9.1 mg/dL 8.5-10.1 [facility] Chloride [Moles/Vol] 107 mmol/L 98-107 [facility] CO2 [Moles/Vol] 25.8 mmol/L 21.0-32.0 [facility] Creatinine [Mass/Vol] 1.05 mg/dL High 0.55-1.02 [facility] GFR/1.73 sq M.predicted MDRD (S/P/Bld) [Vol rate/Area] mL/min/{1.73_m2} >=60 mL/min/1.73m 2 [facility] Glucose [Mass/Vol] 84 mg/dL 74-106 [facility] Potassium [Moles/Vol] 3.7 mmol/L 3.5-5.1 [facility] Protein [Mass/Vol] 7.2 g/dL 6.4-8.2 [facility] Sodium [Moles/Vol] 143 mmol/L 136-145 [facility] Urea nitrogen [Mass/Vol] 20.0 mg/dL High 7.0-18.0 [facility] Urea nitrogen/Creatinine [Mass ratio] 19.0 mg/mg [facility] Laboratory - Hematology and Cell countson 05-01-2024 Immature granulocytes/100 WBC (Bld) 0.2 % 0.0-0.5 [facility] Laboratory - Specimen inform ationon 05-01-2024 Appearance (U) CLEAR CLEAR [facility] Color (U) YELLOW YELLOW [facility] Laboratory - Urinalysison Leukocyte esterase Test strip Ql (U) Negative NEGATIVE [facility] Nitrite Ql (U) Negative NEGATIVE [facility] Protein Ql (U) Negative NEG/TRACE [facility] Leukocytes [#/volume] correc reji for nucleated erythrocytes in Blood by Automated counon 05-01-2024 WBC corrected for nucl RBC Auto (Bld) [#/Vol] 4.5 10 3/uL 4.0-11.0 [facility] Lymphocytes Auto (Bld) [#/Vo l]on 05-01-2024 Lymphocytes (Bld) [#/Vol] 2.0 10 3/uL 1.2-3.8 [facility] Lymphocytes/100 WBC Auto (Bl d)on 05-01-2024 Lymphocytes/100 WBC (Bld) 43.8 % 20.5-60.0 [facility] MCH Auto (RBC) [Entitic mass ]on 05-01-2024 MCH (RBC) [Entitic mass] 34.5 pg High 26.7-34.0 [facility] MCHC Auto (RBC) [Mass/Vol]on 05-01-2024 MCHC (RBC) [Mass/Vol] 33.5 g/dL 29.9-35.2 [facility] MCV Auto (RBC) [Entitic vol] on 05-01-2024 MCV (RBC) [Entitic vol] 102.9 fL High 81.0-99.0 [facility] Monocytes Auto (Bld) [#/Vol] on 05-01-2024 Monocytes (Bld) [#/Vol] 0.6 10 3/uL 0.3-0.8 [facility] Monocytes/100 WBC Auto (Bld) on 05-01-2024 Monocytes/100 WBC (Bld) 13.8 % High 1.7-12.0 [facility] Neutrophils Auto (Bld) [#/Vo l]on 05-01-2024 Neutrophils (Bld) [#/Vol] 1.7 10 3/uL 1.4-6.5 [facility] Neutrophils/100 WBC Auto (Bl d)on 05-01-2024 Neutrophils/100 WBC (Bld) 37.7 % Low 43.0-75.0 [facility] No Panel Informationon 05-01 Urine Microscopic Review NO [facility] Urine Occult Blood Negative NEGATIVE [facility] Eosinophils # (Auto) 0.2 10 3/uL 0.0-0.7 [facility] Immature Granulocyte # (Auto) 0.01 10 3/uL 0.00-0.03 [facility] No Panel InformationOrdered By: Johny Perdomo on 05-01-2024 MRSA Screening Culture Fi [facility] Platelet mean volume Auto (B ld) [Entitic vol]on 05-01-2024 Platelet mean volume (Bld) [Entitic vol] 12.6 fL 9.5-13.5 [facility] Platelets Auto (Bld) [#/Vol] on 05-01-2024 Platelets (Bld) [#/Vol] 266 10 3/uL 150-450 [facility] Prothrombin time (PT)on 04-14 PT Coag (PPP) [Time] 11.3 s 9.0-11.6 [facility] RBC Auto (Bld) [#/Vol]on RBC (Bld) [#/Vol] 3.80 10 6/uL Low 4.20-5.40 [facility] Serum or plasma albumin/glob ulin mass ratioon 05-01-2024 Albumin/Globulin [Mass ratio] 0.7 {ratio} [facility] Serum or plasma anion gap de terminationon 05-01-2024 Anion gap [Moles/Vol] 13.9 mmol/L [facility] C Urineon 01-19-2024 Bacteria identified Cx Nom (U) Microbiology PROCEDURE: Urine Culture [R1] SOURCE: U [employer] BODY SITE: COLLECTED DATE/TIME: 01/15/2024 14:29 EDT RECEIVED DATE/TIME: 01/15/2024 17:37 EDT START DATE/TIME: 01/15/2024 17:37 EDT FREE TEXT SOURCE: Gage JACOB, Katie lAmonte MD, Katie Arteaga FINAL REPORTS Final Report [...] Locations R1: This test was performed at: [facility], [address] [place] [address], [facility]- , , [facility] Comment on above: Performed By: #### [id number] #### [facility] [address] [place] [address] Ambulatory Visit Summaryon 0 01-15-2024 Ambulatory Visit [...] Carrera, URO When: Where: [address] [place] [address] [phone] Medications What How Much When Instructions Unchanged estradiol topical (Estrace 0.1 mg/ g Cream) See instructions Apply pea-sized amound around the opening of the urethra 3 times per week for 1 month then 2 times per week after for maintenance. Pickup at [facility] Unchanged biotin (biotin 5000 mcg oral capsule) Contact prescribing physician if questions or concerns Unchanged cholecalciferol (Vitamin D3 5000 intl units oral capsule) 1 Capsules By Mouth Every day with food Contact prescribing physician if questions or concerns Unchanged fexofenadine (Mary) By Mouth Contact prescribing physician if questions or concerns Pharmacy Information [facility]: [address] [place], [place] [id number] [phone] Allergies codeine (nausea) Problems Ongoing - Any [...] to (more content not included)... Normal [facility] Urology Office/Clinic Noteon 01-15-2024 Urology Office/Clinic [...] Information Gage JACOB, Katie Arteaga, URL, URO [address], [place] [address] [phone] Additional Instructions: pt's choice on when to [...] Osteopeni (more content not included)... Normal [facility] Comment on above: Result Comment: Elec tronically Signed By: Katie Almonte MD\.br\Date and Time Signed: 01/15/24 23:28 EDT\.br\Electronically Co-Signed By: Yuliana Olson\.br\Date and Time Co-Signed: 01/15/24 11:27 EDT [place] 02-21-2023 Screens [id number] Normal [facility] Patient Educationon 02-21-20 Patient Education Obstetrics [...] these instructions at home: Medicines ? Take [id number] and prescription medicines only as told by [...] provider. Document Revised: 02/10/2021 Document Reviewed: 02/10/2021 GMI Patient Education ? 2022 [employer]. [facility] Urology Office/Clinic Noteon 02-20-2023 Urology Office/Clinic [...] exam (more content not included)... Normal [facility] Comment on above: Result Comment: Elec tronically Signed By: Katie Almonte MD\.br\Date and Time Signed: 02/20/23 12:03 EDT\.br\Electronically Co-Signed By: Sepideh Perez\.br\Date and Time Co-Signed: 02/20/23 11:49 EDT Covid-19 PCR (CVDTB)on 07-15 SARS-CoV-2 (COVID-19) RNA AZUL+probe Ql (Unsp spec) Not detected Normal NOT DETECTED [facility] Comment on above: Result Comment: This test is not yet approved or cleared by the [place] FDA. When there are no FDA-approved or cleared tests available, and other criteria are met, FDA can make tests available under an emergency access mechanism called an Emergency Use Authorization (EUA). The EUA for this test is supported by the [place] of Health and Human Service's (HHS's) declaration [...] SARS-CoV-2. Performed By: #### C VDTBH #### [facility] [address] [place] [address] Dr. Manjula Arzate CREATININEon 06-13-2022 Creatinine [Mass/Vol] 0.98 mg/dL Normal 0.55-1.02 [facility] Comment on above: Performed By: #### C JESUS #### [facility] [address] [place] [address] Dr. Manjula Arzate EGFR-AF [place]ORE[place] >60 Normal >=60 [facility] Comment on above: Performed By: #### C JESUS #### [facility] [address] [place] [address] Dr. Manjula Arzate EGFR-NON AF [place] 55 mL/min/1.73m2 Critically low >=[address] [facility] Comment on above: Performed By: #### C JESUS #### [facility] [address] [place] [address] ABD/PELV W CONon [...] by: DARIO BESS Date: 2022-06-13 17:40 Normal [facility] CT ABD/PELVIS WO CONon 11-27 CT [...] by: DARIO BESS Date: 2021-11-27 10:41 Normal [facility] Vital Signs Date Time Vital Sign Value Performing Clinician Facility 06-10-2024 15:24-0500 Body height 167.6 cm Zaida Child MD Work Phone: [facility] 06-10-2024 15:24-0500 Body mass index (BMI) [Ratio] 32.28 kg/m2 Zaida Child MD Work Phone: [facility] 06-10-2024 15:24-0500 Body weight 90.72 kg Zaida Child MD Work Phone: [facility] 06-10-2024 15:24-0500 Diastolic blood pressure 84 mm[Hg] Zaida Child MD Work Phone: [facility] 06-10-2024 15:24-0500 Systolic blood pressure 132 mm[Hg] Zaida Child MD Work Phone: [facility] 05-28-2024 11:08-0500 Body height 167.6 cm Zaida Child MD Work Phone: [facility] 05-28-2024 11:08-0500 Body mass index (BMI) [Ratio] 33.09 kg/m2 Zaida Child MD Work Phone: [facility] 05-28-2024 11:08-0500 Body temperature 97.39 [degF] Zaida Child MD Work Phone: [facility] 05-28-2024 11:08-0500 Body weight 92.99 kg Zaida Child MD Work Phone: [facility] 05-28-2024 11:08-0500 Diastolic blood pressure 84 mm[Hg] Zaida Child MD Work Phone: [facility] 05-28-2024 11:08-0500 Heart rate 72 /min Zaida Child MD Work Phone: [facility] 05-28-2024 11:08-0500 SaO2% (BldA) [Mass fraction] 97 % Zaida Child MD Work Phone: [facility] 05-28-2024 11:08-0500 Systolic blood pressure 146 mm[Hg] Zaida Child MD Work Phone: [facility] 05-19-2024 11:18-0500 Body height 165.1 cm [facility] 05-19-2024 11:18-0500 Body mass index (BMI) [Ratio] 33.1 kg/m2 [facility] 05-19-2024 11:18-0500 Body weight 90.26 kg [facility] 05-19-2024 11:18-0500 Diastolic blood pressure 76 mm[Hg] [facility] 05-19-2024 11:18-0500 Heart rate 91 /min [facility] 05-19-2024 11:18-0500 Systolic blood pressure 114 mm[Hg] [facility] 05-07-2024 14:39-0400 Body height 165.1 cm [facility] 05-07-2024 14:39-0400 Body mass index (BMI) [Ratio] 33.7 kg/m2 [facility] 05-07-2024 14:39-0400 Body weight 92.07 kg [facility] 05-07-2024 14:39-0400 Diastolic blood pressure 79 mm[Hg] [facility] 05-07-2024 14:39-0400 Heart rate 76 /min [facility] 05-07-2024 14:39-0400 Systolic blood pressure 116 mm[Hg] [facility] 04-29-2024 08:21-0400 Body height 165.1 cm [facility] 04-29-2024 08:21-0400 Body mass index (BMI) [Ratio] 33.8 kg/m2 [facility] 04-29-2024 08:21-0400 Body weight 92.3 kg [facility] 04-29-2024 08:21-0400 Diastolic blood pressure 82 mm[Hg] [facility] 04-29-2024 08:21-0400 Heart rate 74 /min [facility] 04-29-2024 08:21-0400 Respiratory rate 16 /min [facility] 04-29-2024 08:21-0400 SaO2% (BldA) [Mass fraction] 96 % [facility] 04-29-2024 08:21-0400 Systolic blood pressure 120 mm[Hg] [facility] 01-24-2024 10:54-0400 Body height 165.1 cm [facility] 01-24-2024 10:54-0400 Body mass index (BMI) [Ratio] 35.6 kg/m2 [facility] 01-24-2024 10:54-0400 Body weight 97.06 kg [facility] 01-24-2024 10:54-0400 Diastolic blood pressure 81 mm[Hg] [facility] 01-24-2024 10:54-0400 Heart rate 71 /min [facility] 01-24-2024 10:54-0400 Systolic blood pressure 121 mm[Hg] [facility] 01-15-2024 10:37-0400 Blood Pressure Location Katie Lue [facility] 01-15-2024 10:37-0400 Body temperature 97.88 [degF] Katie Lue [facility] 01-15-2024 10:37-0400 Diastolic blood pressure 78 mm[Hg] Katie Lue [facility] 01-15-2024 10:37-0400 Heart rate 71 /min Katie Lue [facility] 01-15-2024 10:37-0400 Systolic blood pressure 132 mm[Hg] Katie Lue [facility] 02-20-2023 10:53-0400 Blood Pressure Location Katie Lue [facility] 02-20-2023 10:53-0400 Diastolic blood pressure 76 mm[Hg] Katie Lue [facility] 02-20-2023 10:53-0400 Heart rate 68 /min Katie Lue [facility] 02-20-2023 10:53-0400 Respiratory rate 16 /min Katie Lue [facility] 02-20-2023 10:53-0400 Systolic blood pressure 130 mm[Hg] Katie Lue [facility] 08-22-2022 11:50-0500 Blood Pressure Location Katie Lue [facility] 08-22-2022 11:50-0500 Diastolic blood pressure 78 mm[Hg] Katie Lue [facility] 08-22-2022 11:50-0500 Heart rate 68 /min Katie Lue [facility] 08-22-2022 11:50-0500 Respiratory rate 16 /min Katie Lue [facility] 08-22-2022 11:50-0500 Systolic blood pressure 132 mm[Hg] Katie Lue [facility] 12-05-2021 10:33-0400 Diastolic blood pressure 81 mm[Hg] Mally Key Jr. [facility] 12-05-2021 10:33-0400 Mean blood pressure 101 mm[Hg] Mally Key Jr. [facility] 12-05-2021 10:33-0400 Systolic blood pressure 142 mm[Hg] Mally Key Jr. [facility] 12-05-2021 10:12-0400 Blood Pressure Location Mally Key Jr. [facility] 12-05-2021 10:12-0400 Diastolic blood pressure 97 mm[Hg] Mally Key Jr. [facility] 12-05-2021 10:12-0400 Heart rate 87 /min Mally Key Jr. [facility] 12-05-2021 10:12-0400 Respiratory rate 16 /min Mally Key Jr. [facility] 12-05-2021 10:12-0400 Systolic blood pressure 163 mm[Hg] Mally Key Jr. [facility] Encounters Encounter Date Encounter Type Care Provider Facility Start: 06-10-2024 End: 06-10-2024 Office outpatient visit 15 minutes Zaida Child MD Work Phone: [facility] Comment on above: Superficial phlebiti s and thrombophlebitis of right lower extremity (Primary Dx); Varicose veins of bilateral lower extremities with pain Start: 06-10-2024 End: 06-10-2024 ambulatory [facility] Start: 06-03-2024 End: 06-04-2024 Orders Only Rosanne Merrill LPN [facility] Start: 05-28-2024 End: 05-28-2024 Office outpatient new 30 minutes Zaida Child MD Work Phone: [facility] Comment on above: Superficial phlebiti s and thrombophlebitis of right lower extremity (Primary Dx); Right leg pain; Phlebitis and thrombophlebitis of unspecified site; Varicose veins of bilateral lower extremities with pain Start: 05-19-2024 End: 05-19-2024 ambulatory [facility] Work Phone: Start: 05-19-2024 End: 05-19-2024 Patient encounter procedure [facility] Work Phone: Start: 05-07-2024 Non-patient / Non-visit [facility] Work Phone: Start: 05-07-2024 End: 05-07-2024 ambulatory [facility] Work Phone: Start: 05-07-2024 End: 05-07-2024 Patient encounter procedure [facility] Work Phone: Start: 2024 Non-patient / Non-visit [facility] Work Phone: Start: 05-01-2024 Patient encounter status [facility] Start: 05-01-2024 Non-patient / Non-visit [facility] Work Phone: Start: 04-29-2024 End: 04-29-2024 ambulatory [facility] Work Phone: Start: 04-29-2024 End: 04-29-2024 Patient encounter procedure [facility] Work Phone: Start: 04-10-2024 End: 04-10-2024 ambulatory Johny Ray Perdomo DO Facility:[facility] Start: 03-20-2024 ambulatory Johnytae willis DO Facility:[facility] Start: 02-05-2024 Patient encounter procedure [facility] Start: 01-24-2024 End: 01-24-2024 ambulatory [facility] Work Phone: Start: 01-24-2024 End: 01-24-2024 Patient encounter procedure [facility] Work Phone: Start: 01-15-2024 End: 01-15-2024 ambulatory Katie Josée Facility:[facility] Start: 01-15-2024 End: 01-15-2024 Lab Drop off Katie Josée [facility] Start: 01-15-2024 End: 01-15-2024 ambulatory Katie M. Lue Facility:[facility] Start: 01-15-2024 End: 01-15-2024 Patient encounter procedure Katie MPadilla Josée [facility] Start: 08-01-2023 End: 08-01-2023 ambulatory Hafsa Knowles Other [facility] [employer] Other Start: 08-01-2023 Telephone encounter Hafsa Benson [facility] Start: 07-30-2023 End: 07-30-2023 ambulatory Hafsa Benson Other [facility] Other Start: 07-30-2023 Telephone encounter Hafsa Knowles [facility] Start: 02-20-2023 End: 02-20-2023 ambulatory Katie Almonte Facility:[facility] Start: 02-20-2023 End: 02-20-2023 Patient encounter procedure Katie Almonte [facility] Start: 08-22-2022 End: 08-22-2022 Patient encounter procedure Katie Almonte [facility] Start: 08-01-2022 End: 08-01-[address] ANTWON BAKER Facility:[facility] Start: 07-30-2022 End: 07-31-[address] ANTWON BAKER Facility:[facility] Start: 07-12-2022 Adult health examination Vanessa Knowles Other [facility] Other Start: 06-13-2022 End: 06-14-[address] HAFSA KNOWLES Facility:[facility] Start: 12-05-2021 End: 12-05-2021 Patient encounter procedure Mally Key Jr. [facility] Start: 11-27-2021 End: 11-28-[address] [...] Key JrPadilla Ligation of fallopian tube D prashnath Key JrPadilla Screening for malign ant neoplasm of breast Hafsa Knowles Other Plan of Treatment Date Care Activity Detail Author Start: 06-10-2025 Tobacco Screening Tobacco Screening [facility] Start: 05-28-2025 Tobacco Screening Tobacco Screening [facility] Start: 06-25-2024 End: 06-25-2024 Patient encounter procedure 06/25/2024 9:20 AM EST Office Visit [facility] [address] [place] [phone] Zaida Child MD [id number] DR, [address] [address] [facility] Start: 06-18-2024 End: 06-18-2024 Patient encounter procedure 06/18/2024 10:20 AM EST Office Visit [facility] Vascular Surgery [address] [place] [phone] Zaida Child MD [address] [address] [facility] Start: 05-19-2024 Patient referral [facility] Work Phone: Start: 03-15-2024 COVID-19 Vaccine ( season) COVID-19 Vaccine ( season) [facility] Start: 07-20-2023 Tobacco Screening Tobacco Screening [facility] Start: 2012 Fall Risk Screening Fall Risk Screen ing [facility] Start: 1966 DTaP,Tdap and Td Vaccines (1 - Tdap) DTaP,Tdap and Td Vaccines (1 - Tdap) [facility] Start: 1959 Depression Screening Depression Scre ening [facility] DXA Skeletal system.axial Views for bone density [facility] MG Breast - bilatera l Screening [facility] Patient referral [facility] Work Phone: US Lower extremity v ein - right [facility] XR Tibia and Fibula - right 2 Views [facility] Immunizations Immunization Date Immunization Notes Care Provider Fa cility 04-10-2022 SARS-CoV-2 (COVID-19 ) [id number] Katie Lue [facility] 04-11-2021 SARS-CoV-2 (COVID-19 ) mRNA BNT-162b2 vax Katie Lue [facility] 02-15-2021 zoster vaccine recombinant Katie Lue [facility] 11-30-2020 zoster vaccine recombinant Katie Lue [facility] 08-30-2020 SARS-CoV-2 (COVID-19 ) mRNA BNT-162b2 vax Katie Lue [facility] Comment on above: Result Comment: 2022: [id number] 08-09-2020 SARS-CoV-2 (COVID-19 ) mRNA BNT-162b2 vax Katie Almonte [facility] Comment on above: Result Comment: 2022: [id number] 05-16-2020 influenza virus vaccine, split virus (incl. purified surface antigen) Hafsa Knowles Other [employer] Other 05-16-2020 influenza virus vaccine, unspecified formulation [facility] 04-26-2020 influenza virus vaccine, unspecified formulation Katie Almonte [facility] 12-16-2018 pneumococcal polysaccharide vaccine, 23 valent Hafsa Knowles Other [facility] 11-07-2017 pneumococcal conjuga te vaccine, 13 valent Mally Key Jr. [facility] 11-07-2017 pneumococcal Conjuga te, unspecified formulation; Translations: [Need for prophylactic vaccination against Streptococcus pneumoniae (pneumococcus)] Hafsa Knowles Other [employer] [facility] [employer] Other 10-13-2017 pneumococcal polysaccharide vaccine, 23 valent Katie Lue [facility] 04-14-2017 influenza virus vaccine, unspecified formulation Katie Lue [facility] Payers Date Payer Category Payer Commercial Indemnity [facility] [id number] 2012 Medicare 2012 Unknown 1959 Medicare [id number] 1959 Unknown [id number] 1947 Unknown [id number] 93 1947 Unknown [id number] 93 1947 Unknown [id number] 93 1947 Unknown [id number] 93 1947 Unknown [id number] 27 1947 Unknown [id number] [id number] 27 1947 Unknown [id number] 27 1947 Unknown [id number] [id number] 96 1947 Unknown [id number] 286 Medicare Medicare [id number] Social History Date Type Detail Facility Start: 12-05-2021 End: 07-18-2022 Tobacco smoking status Never smoked tobacco (finding) [facility] Start: 05-28-2024 End: 06-10-2024 Sex Assigned At Female [facility] Tobacco smoking status Never [facility] Start: 1945 Sex Assigned At Female [facility] Start: 07-18-2022 Tobacco use and exposure Smokeless tobacco non-user [facility] Start: 05-28-2024 End: 06-10-2024 Alcoholic beverage intake Lifetime non-drinker (finding) [facility] Start: 05-28-2024 End: 06-10-2024 History of Social function [facility] Start: 07-18-2022 Alcohol Comment rare [facility] Start: 1945 Sex assigned at Not on file P [facility] Start: 05-31-2021 Sex Female (finding) [facility] Functional Status Date Assessment Result Facility 01-15-2024 Functional Status N/A [facility] 02-20-2023 Functional Status N/A [facility] 08-22-2022 Functional Status N/A [facility] Clinical Notes 12-05-2021 to 06-10-2024 Assessment [...] ultrasound compression stockings leg elevation and exercise. [facility] 06-10-2024 Evaluation + Plan note Associated Problem(s): Superficial phlebitis and thrombophlebitis of right lower extremity Warm compresses nonsteroidal anti-inflammatory drugs leg elevation and compression therapy. We will get venous reflux ultrasound and rule out DVT as well. [facility] 06-10-2024 Miscellaneous Notes Associated Problem(s): Varicose veins of bilateral lower extremities with pain Venous reflux ultrasound compression stockings leg elevation and exercise. Associated Problem(s): Superficial phlebitis and thrombophlebitis of right lower extremity Warm compresses nonsteroidal anti-inflammatory drugs leg elevation and compression therapy. We will get venous reflux ultrasound and rule out DVT as well. documented in this encounter [facility] 06-10-2024 History of Presen t illness Narrative [...] 06/14/2021 Performed by Vic Hitchcock DO at [facility] BREAST SURGERY bx, marker in place [...] Zaida Child MD, TRIPP, RPVI, FSVS, FACS [facility] This note was created with the assistance of a speech recognition program. While intending to generate a timely document that accurately reflects the content of the visit, no guarantee can be provided that every grammatical or spelling mistake has been or will be identified or corrected. Thank you for your understanding. documented in this encounter [facility] 05-28-2024 Evaluation + Plan note Associated Problem(s): Varicose veins of bilateral lower extremities with pain Compression stockings leg elevation exercise. Venous reflux ultrasound. [facility] 05-28-2024 Miscellaneous Notes Associated Problem(s): Varicose veins of bilateral lower extremities with pain Compression stockings leg elevation exercise. Venous reflux ultrasound. Associated Problem(s): Superficial phlebitis and thrombophlebitis of right lower extremity Nonsteroidal anti-inflammatory drugs warm compresses leg elevation and compression therapy when possible documented in this encounter [facility] 05-28-2024 Evaluation + Plan note Associated Problem(s): Superficial phlebitis and thrombophlebitis of right lower extremity Nonsteroidal anti-inflammatory drugs warm compresses leg elevation and compression therapy when possible [facility] 05-28-2024 History of Presen t illness Narrative [...] given by office. Patient was given a [employer] coupon voucher to use, this is not [...] 06/14/2021 Performed by Vic Hitchcock DO at [facility] bx, marker in place [...] pain - [facility] [place] [place] Phlebitis and thrombophlebitis of unspecified site - [facility] [place] Varicose veins of bilateral lower extremities with pain Zaida Child MD, TRIPP, RPVI, FSVS, FACS [facility] This note was created with the assistance of a speech recognition program. While intending to generate a timely document that accurately reflects the content of the visit, no guarantee can be provided that every grammatical or spelling mistake has been or will be identified or corrected. Thank you for your understanding. documented in this encounter [facility] 04-10-2024 Note Procedure: MRI of th e [...] Signed, Electronically Signed in Other Vendor System) [facility] 04-10-2024 Note Procedure: MRI of th [...] Signed, Electronically Signed in Other Vendor System) [facility] 01-15-2024 Evaluation + Plan note Diagnostic Tests PendingUrine Culture 01/15/24 [facility] 01-15-2024 Hospital Discharg e instructions Patient [...] provider. Document Revised: 11/09/2021 Document Reviewed: 11/09/2021 [facility]MI Patient Education 2022 [employer]. Follow Up Care 02/20/2023 12:02:25 With:Gage JACOB, KEKE Carrera, URO Address: [address] [place] [phone] When: Unknown [facility] Note Patient Education Obstetrics [...] provider. Document Revised: 11/09/2021 Document Reviewed: 11/09/2021 GMI Patient Education ? 2022 [employer]. [facility] 07-30-2023 Evaluation note Encounter Date Diagnosis Assessment Notes Jul, Acute non-recurrent maxillary sinusitis (ICD-10 - J01.00) [facility] Other 08-09-2023 Hospital Discharge instructions Patient Education 02/20/2023 09:58:29 Urinary Tract Infection, Adult, [id number] Urinary Tract Infection, Adult A urinary tract [...] Follow these instructions at home: Medicines Take kqqa-wog-frozypq and prescription medicines only as told by [...] provider. Document Revised: 02/10/2021 Document Reviewed: 02/10/2021 GMI Patient Education 2022 [employer]. Follow Up Care 08/22/2022 12:56:32 With:Gage JACOB, KEKE Carrera, URO Address: When:Within 1 Year(s) [facility] 02-08-2023 Hospital Discharge instructions Patient Education [...] 06/17/2013 Document Revised: 02/18/2019 Document Reviewed: 02/18/2019 GMI Patient Education 2020 [employer]. Follow Up Care 06/13/2022 11:42:12 With:Gage JACOB, KEKE Carrera, URO Address: When: Unknown [facility] 05-24-2022 Hospital Discharge instructions Patient Education [...] provider gives to you. In general: Take qqpd-hwz-swcwxzu and prescription medicines only as told by [...] 01/26/2015 Document Revised: 08/07/2018 Document Reviewed: 08/07/2018 GMI Patient Education 2020 [employer]. Follow Up Care 06/07/2021 13:20:37 With:Shahid Ontiveros MD, Mally Mendiola, URO Address: [facility] [address], [place] [address]- When: Unknown [facility] evalyeajhj + Plan note No data available for this section [facility] evaluation + Plan note Future Appointments Appointment Date:02/20/2023 10:45:00 AM Scheduled Provider:Katie Almonte MD Location:[facility] Appointment Type:URO Office Visit [facility] evaluation + Plan note Future Appointments Appointment Date:02/26/2024 10:45:00 AM Scheduled Provider:Katie Almonte MD Location:[facility] Appointment Type:URO Office Visit [facility] evaluation noteNo [employer] Other evaluation note* Diagnosis Onset Date Resolution Status Menopausal and postmenopausal disorder acute Screening mammogram for breast cancer acute [facility] Work Phone: evaluation noteNo assessment information available [facility] Work Phone: evaluation note* Diagnosis Onset Date Resolution Status Preoperative examination acu te Right leg pain acute [facility] Work Phone: Evaluation note* Diagnosis Onset Date Resolution Status Preoperative examination acu te Right leg pain acute Phlebitis acute Right leg pain acute [facility] Work Phone: Evaluation note* Diagnosis Superficial [...] ABOVE SURGERY Hospitalization History CHILD X'S 2 [facility] Other Hospital Discharge instructions No data available for this section [facility] Orders* Referral to Vascular Surgery Time Frame: 05/19/24, Location: None [facility] Work Phone: InstructionsNot on filedocumented in this encounter [facility] filedocumented in this encounter [facility]Not on filedocumented in this encounter [facility] No data available for this section [facility] Summary Purpose Family History No Family [...] and content) DATE CREATED AUTHOR 08/02/2022 [facility] [place] [facility] DATE CREATED AUTHOR AUTHOR'S ORGANIZ ATION [facility]20[facility] DATE CREATED AUTHOR AUTHOR'S ORGANIZ ATION 01/19/2024 [facility] DATE CREATED AUTHOR AUTHOR'S ORGANIZ ATION 04/11/2024 [facility] DATE CREATED AUTHOR AUTHOR'S ORGANIZ ATION 06/13/2024 [facility] Patient Care team informatio n (unrecognized section [...] May 19, 2024 End: May 19, 2024 Step Finisher 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 [place] [address] [place] [address] PCP - General Family Medicine 06/01/21 Step Finisher 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 Start Date End Date Hafsa Knowles MD [address] [place] [address] PCP - General Family Medicine 06/01/21 Step Finisher 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 Start Date End Date Hafsa Knowles MD [address] [place] [address] PCP - General Family Medicine 06/01/21 REASON FOR VISIT (unrecogniz ed section and content) Reason Comments new patient - right leg pain after cellu litis Specialty Diagnoses / Procedures Referred By Mara gamez Referred To Contact Vascular Surgery Diagnoses Right leg pain Phlebitis and thrombophlebit[place] [address] [place] [address] Phone: tel: fax: [facility] [address] [place] [phone] Phone: tel: fax: Referral ID Status Reason Start Date Expiration Date Visits Requested Visits Authorized [id number] Pending Review Specialty Services Required 05/20/2024 05/20/2025 [...] BE BASED ON THE PRIMARY CLINICAL RECORDS. [facility]. provides no warranty or guarantee of the accuracy or completeness of information in this document.
--- NOTE | 2024-06-30 11:23 | P.DS_ITS ---
Discharge Plan Discharge Disposition: Home, Self-Care Outpatient Diagnostics: VC Endovenous Ablation 1VeinRT (Routine) Timeframe: 2 Weeks Facility: [facility] - Location: [facility] Ordered By: Quentin Hernandez Follow Up Appointments: 07/02/24 Plan of Treatment: EVLT of right leg GSV Print Language: Citizen Of [place] Discharge Date/Time: 06/30/24 11:28
== END 2024-06-30 11:28 | disposition home or self-care (01) ==
PROVIDERS: PCP Radiology Diagnostic Radiology; Visit Provider Radiology Diagnostic Radiology
DX: I80.02 Phlebitis and thrombophlebitis of superficial vessels of left lower extremity (principal)
CPT/HCPCS: 93971; G0463

== ENCOUNTER 2024-07-02 09:45 | Outpatient (OUT) | payer MEDICARE, OTHER, SELFPAY ==
--- NOTE | 2024-07-01 16:14 | VEINCLINIC_ITS ---
Vital Signs 07/02/24 10:06 BP 134/72 BP Location Left Brachial BP Position Sitting BP Cuff Size Adult BP Source Manual Cuff Respiration 18 Pulse 71 Pulse Source Monitor Pulse Oximetry (%) 98 Oxygen Delivery Method Room Air Comment The patient's blood pressure is elevated. Varicose Veins Patient in this day for EVLT of right GSV Quentin Michel MD personally performed the services described in this documentation, as scribed by Saeid Godinez RN in my presence and it is both accurate and complete. ISaeid RN, am scribing for, and in the presence of, Dr. Quentin Hernandez and in the presence of the patient. thigh: bilateral, knee: bilateral, calf: bilateral, ankle: bilateral and anderson: bilateral aching, sharp and tender 3 8 weeks Worsened in recent months: Yes standing analgesics, elevating extremities and compression stockings Reports erythema, bruising, heaviness, limb pain, edema and leg edema History of lower extremity trauma: No Superficial thrombophlebitis: Yes Family history of varicose veins: yes Has patient had previous lower extremity venous surgery: No Patient has previously received the following treatment(s) for lower extremity varicose veins: Reports none Does patient have a history of : yes Does patient intend to have future pregnancies: no Has patient had lower extremity venous scan with relux testing: Yes Support hose used: Yes Problems walking or doing physical activity: Yes How does it affect you: Unable to stand for long periods of time Do you walk much: Yes Do you stand much: Yes Review of Systems ROS Narrative Quentin Michel MD personally performed the services described in this documentation, as scribed by Saeid Godinez RN in my presence and it is both accurate and complete. Saeid Michel RN, am scribing for, and in the presence of, Dr. Quentin Hernandez and in the presence of the patient. Status of ROS 10 or more systems reviewed and unremark able except as noted in history and below Cardiovascular Reports: edema and swelling of feet/ankles Musculoskeletal Reports: extremity pain, extremity swelling, joint pain, joint swelling and muscle cramps Integumentary/Breast Reports: itching, redness, skin pain, skin tenderness, skin swelling and sores PFSH PFS Medical History (Updated 07/01/24 @ 16:16 by Saeid Godinez) Phlebitis and thrombophlebitis of superficial vessels of right lower extremity ?I80.01 - Phlebitis and thrombophlebitis of superficial vessels of right lower extremity (ICD-10) Phlebitis and thrombophlebitis of superficial vessels of left lower extremity ?I80.02 - Phlebitis and thrombophlebitis of superficial vessels of left lower extremity (ICD-10) Pain due to varicose veins of both lower extremities ?I83.813 - Varicose veins of bilateral lower extremities with pain (ICD-10) Raynaud disease ?I73.00 - Raynaud's syndrome without gangrene (ICD-10) Arthritis ?M19.90 - Unspecified osteoarthritis, unspecified site (ICD-10) History of ITP (1989) ?Z86.2 - Personal history of diseases of the blood and blood-forming organs and certain disorders involving the immune mechanism (ICD-10) History of blood transfusion ?Z92.89 - Personal history of other medical treatment (ICD-10) Thyroid cyst ?E04.1 - Nontoxic single thyroid nodule (ICD-10) Phlebitis ?I80.9 - Phlebitis and thrombophlebitis of unspecified site (ICD-10) Varicose vein of leg ?I83.90 - Asymptomatic varicose veins of unspecified lower extremity (ICD-10) Knee pain ?M25.569 - Pain in unspecified knee (ICD-10) Seasonal allergic rhinitis ?J30.2 - Other seasonal allergic rhinitis (ICD-10) Cataracts, bilateral ?H26.9 - Unspecified cataract (ICD-10) Hyperparathyroidism ?E21.3 - Hyperparathyroidism, unspecified (ICD-10) Renal cyst ?N28.1 - Cyst of kidney, acquired (ICD-10) Osteopenia ?M85.80 - Other specified disorders of bone density and structure, unspecified site (ICD-10) Vitamin D deficiency ?E55.9 - Vitamin D deficiency, unspecified (ICD-10) Chronic UTI ?N39.0 - Urinary tract infection, site not specified (ICD-10) Genu varum of right lower extremity ?M21.161 - Varus deformity, not elsewhere classified, right knee (ICD-10) Primary osteoarthritis of right knee ?M17.11 - Unilateral primary osteoarthritis, right knee (ICD-10) Surgical History (Updated 07/02/24 @ 10:11 by Saeid Godinez) Status post laser ablation of incompetent vein ?Z98.890 - Other specified postprocedural states (ICD-10) History of colonoscopy ?Z98.890 - Other specified postprocedural states (ICD-10) H/O knee surgery ?Z98.890 - Other specified postprocedural states (ICD-10) H/O breast biopsy ?Z98.890 - Other specified postprocedural states (ICD-10) History of cholecystectomy ?Z90.49 - Acquired absence of other specified parts of digestive tract (ICD- 10) H/O oophorectomy H/O parathyroidectomy ?Z98.890 - Other specified postprocedural states (ICD-10) ?Z90.89 - Acquired absence of other organs (ICD-10) History of hysterectomy ?Z90.710 - Acquired absence of both cervix and uterus (ICD-10) H/O tubal ligation ?Z98.51 - Tubal ligation status (ICD-10) H/O splenectomy (1989) ?Z90.81 - Acquired absence of spleen (ICD-10) S/P arthroscopic knee surgery ?Z98.890 - Other specified postprocedural states (ICD-10) Family History (Updated 06/16/24 @ 10:21 by Hilda Reyes RN) Mother Varicose veins of bilateral lower extremities with pain Father Family history of myocardial infarction Other Cancer Family history of DVT Family history of cancer Social History (Updated 05/01/24 @ 08:31 by Francesca Zavala NP) Within the past year, how often did you have a drink containing alcohol: never Score interpretation: A score less than 3 is consistent with normal alcohol consumption. 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 Highest level of school completed/degree received: some college, no degree Little interest or pleasure in doing things: not at all Feeling down, depressed, or hopeless: not at all Meds Home Medications and Allergies Home Medications ?Medication ?Instructions ?Recorded ?Confirmed ?Type biotin 5 mg capsule 5 mg PO DAILY 05/01/24 06/16/24 History cholecalciferol (vitamin D3) 125 125 mcg PO DAILY 05/01/24 06/16/24 History mcg (5,000 unit) capsule cranberry 500 mg capsule 500 mg PO DAILY 05/01/24 06/16/24 History d-mannose 500 mg capsule mg PO 05/01/24 History estradiol 0.01% (0.1 mg/gram) 0.5 appful vaginal .twice a week 05/01/24 06/16/24 History vaginal cream loratadine 10 mg capsule 10 mg PO DAILY 05/01/24 06/16/24 History col58-ttbi 30 mg-folic cap PO 06/16/24 History acid 1 mg-dss 50 mg-dha 260 mg capsule Allergies Allergy/AdvReac Type Severity Reaction Status Date / Time codeine AdvReac Nausea Verified 05/01/24 08:26 Exam Narrative Exam Narrative: Quentin Michel MD personally performed the services described in this documentation, as scribed by Saeid Godinez RN in my presence and it is both accurate and complete. Saeid Michel RN, am scribing for, and in the presence of, Dr. Quentin Hernandez and in the presence of the patient. Constitutional Documenting provider has reviewed patient's vital signs: yes Common normals: oriented x3 Nutritional appearance: overweight Lymph Lymphatic: no lymphedema noted Cardio Peripheral pulses: posterior tibial pulses present and dorsalis pedis pulses present Extremity General: calf tenderness, edema and other findings Right lower extremity: lower leg Right lower leg: inspection and palpation Left lower extremity: lower leg Left lower leg: inspection and palpation Other: Right mid medial calf healed wound 1.0x1.5cm Neuro Common normals: oriented x3 Assessment and Plan Assessment and Plan (1) Pain due to varicose veins of both lower extremities: Plan f/u examination with physician along with right leg limited u/s Quentin Michel MD personally performed the services described in this documentation, as scribed by Saeid Godinez RN in my presence and it is both accurate and complete. Saeid Michel RN, am scribing for, and in the presence of, Dr. Quentin Hernandez and in the presence of the patient. Procedures Procedure Instructions Procedures Plan of care: Risks and benefits of the procedure were discussed at length and informed written consent was obtained.? Time-out completed for verification of correct patient, procedure and site.? Staff present during time-out: Saeid Godinez RN,? Quentin Hernandez MD, Anat Belle RDMS,RVT. Time Out Time_1014 Patient prepped and procedure performed in usual sterile fashion. Risk of injury related to use of Diode laser and/or laser devices?__CR___ ? Serial number of laser used :? [id number] Control panel self test performed, electrical cords in good condition, floor is dry, basin of water available, fire extinguisher in close proximity_CR__ Polycarbonate goggles available and Laser warning signs outside of doors___CR__ Eye protection provided to patient and staff in room_CR___ Use of laser retardant drapes and dull blackened instruments as directed__CR___ Use of nonflammable prep solutions and use of saline soaked sponges to protect tissues as indicated _CR___ Length ____42____ cm Laser operated by __Dr. Hernandez Physician verbal confirmation laser locked in place__CR__ Laser start time (date and time) _07/02/2024@_1026 Laser stop time(date and time) _07/02/2024@_1030 Storey _8.0___ Average laser use _1940 Joules Average laser use___242 seconds Pulse continuous ___CR_? Pulse intermittent ___ Amount of Tumescent used _325cc Evaluated patient for signs and symptoms of electrical injury __CR___ ? Skin clear at insertion site __CR___ Patient tolerated procedure well.? Right leg Coban dressing applied to access site.? Applied right thigh high leg compression stocking. Will return on 07/06/2024 for right leg limited venous ultrasound and exam. IQuentin MD personally performed the services described in this documentation, as scribed by Saeid Godinez RN in my presence and it is both accurate and complete. I, Saeid Godinez RN, am scribing for, and in the presence of, Dr. Quentin Hernandez and in the presence of the patient.
--- NOTE | 2024-07-01 16:15 | P.DS_ITS ---
Discharge Plan Discharge Disposition: Home, Self-Care Outpatient Diagnostics: VC Facility EST LMTD (Routine) Timeframe: 2 Weeks Facility: [facility] - Location: [facility] Ordered By: Quentin Hernandez VC EXT Venous RT LMTD (Routine) Timeframe: 2 Weeks Facility: [facility] - Location: [facility] Center Ordered By: Quentin Hernandez Follow Up Appointments: 07/06/2024 Plan of Treatment: f/u examination with physician along with right leg limited u/s Patient Instructions: Endovenous Ablation (DC) Print Language: German Discharge Date/Time: 07/02/24 10:17
--- NOTE | 2024-07-02 09:53 | VEIN_ITS ---
[address] [address] Patient Name: BHAVESH MONTEIRO MRN: [id number] date: 1945 Sex: F Assigned Patient Location: Current Patient Location: Accession/Order Number: [id number] Exam Date: 07/02/2024 09:55 Report Date: 07/02/2024 11:08 At the request of: CARLO RICHARDSON Procedure: VC Endovenous Ablation 1VeinRT EXAMINATION: VC Endovenous Ablation 1Vein right great saphenous vein HISTORY: I83.813 - Varicose veins of bilateral lower extremities w... COMPARISON: No relevant comparison available. TECHNIQUE: The risks and benefits of the procedure had been previously discussed, and were rediscussed at length. Informed written consent was obtained. Trixie Belle and Saeid Godinez assisted. Time out procedure was performed. The right lower extremity was prepared and draped in the usual sterile fashion to allow knee flexion in the sterile field. Duplex ultrasound probe was draped in a sterile cover, sterile transmission gel was used. Venous mapping was performed with the areas of dilation and large tributaries marked. The total length was 42 cm from the entry 15 cm above the medial malleolus to 3 cm below the saphenofemoral junction. The diameter of the greater saphenous vein ranged from 9-11 mm. A 30 gauge needle and 1% buffered lidocaine was used to anesthetize the entry site. A 4 mm incision was made with a scalpel and the saphenous vein was entered percutaneously under direct ultrasound guidance with a micropuncture set, a single stick was successful in gaining access. A micro-guide wire was inserted and the needle removed. A micro-set including a dilator was inserted over the microwire and the needle and dilator were removed. A 0.018 guide wire was inserted through the micro-set and threaded through the saphenous vein to the saphenofemoral junction. The dilator was removed and an introducer sheath was inserted over the wire until the end of the sheath entered the saphenofemoral junction. The dilator and wire were removed and the 600 micron fiber was introduced and placed and positioned so that it extended beyond the sheath and was 3 cm peripheral to the saphenofemoral femoral junction. Final position of the fiber was determined by ultrasound guidance and duplex imaging. Tumescent anesthetic was delivered by ultrasound guidance. 325 cc of fluid was delivered along the entire course of the saphenous vein. The solution consisted of 1000 cc of normal saline with 40 mL of 1% lidocaine and 20 mL of sodium bicarbonate. A final positioning check was made. The energy source was turned on by means of the foot pedal and the fiber and sheath were withdrawn. The total number of Joules delivered was 1940. The laser was active for 242 seconds under continuous pulse, average laser use of 8 J. Laser start time 1026 AM 07/02/2024. Laser stop time 10:30AM 07/02/2024. A duplex ultrasound revealed compressibility and flow at the saphenofemoral junction immediately after the procedure. Hemostasis at the access site was achieved. The skin incision of the saphenous vein was closed with a 4 x 4. A compression stocking was applied. Postop instructions were given. A follow up appointment was recommended and scheduled. The patient tolerated the procedure well and was discharged in good condition . VEIN/VC Endovenous Ablation 1VeinRT IMPRESSION: Technically successful endovenous ablation of the right great saphenous vein. Electronically authenticated by: CARLO RICHARDSON Date: 07/02/2024 11:08
--- OUTSIDE RECORDS SUMMARY | 2024-07-02 10:03 | XMS_ITS | CCD ---
Author Organization [facility] Care Team Providers Care Monotype Mechanic Name Role Phone HAFSA KNOWLES Primary [...] Care Hafsa Lan MD Primary Care Provider [phone] ZAIDA CHILD Attending HAFSA Salas Referring HAFSA Salas Primary Care Unavailable Allergies Allergy Classification Reported Allergen(s) Allergy Type Date of Onset Reaction(s) Facility (16 sources) Codeine; Translations: [codeine] Drug Allergy 12-26-19 16 Nausea [facility] (1 source) Codeine Drug Allergy [facility] Repository (2 sources) Acetaminophen / HYDROcodone Drug Allergy Unknown [facility] Other (2 sources) Codeine Drug Allergy Unknown [facility] Other (2 sources) patient allergy list reviewed by nurse or physicia Propensity to adverse reactions 04-29-20 15 Comment:Done [facility] Other (2 sources) Allergies Reconciled Propensity to adverse reactions Unknown [employer] [facility] Other (4 sources) Acetaminophen Drug Allergy 01-24-20 [facility] (4 sources) HYDROcodone Drug Allergy 01-24-20 [facility] Medications [...] mouth. Active take 1 capsule by [facility] once daily Biotin 5000 5 MG [...] 2 times per week after for maintenance., [facility], 168, cm, 01/15/24 10:54:00 EDT, Height/Length Dosing, 96, kg, 01/15/24 10:54:00 EDT, Weight Dosing Start Date: 01/15/24 Status: Ordered Start: 08-22-2022 Estrace 0.1 mg /g Cream See Instructions, 42.5 gm, Refill(s) 6, Apply pea-sized amound around the opening of the urethra 3 times per week for 1 month then 2 times per week after for maintenance., [employer] [facility], 168, cm, 08/22/22 11:52:00 EST, [...] given by office. Patient was given a [employer] coupon voucher to use, this is not to be ran through patients insurance. 24 tablet 07/18/2022 Active sulfamethoxazole 800 mg / trimethoprim 160 mg oral tablet (3 sources) Dihydrofolate Reductase Inhibitor Antibacterial, Sulfonamide Antimicrobial Start: 05-08-2024 take 1 tablet by mouth twice daily Sulfamethoxazole-Trimethoprim Active 1 TAB PO Twice daily May 07, 2024 11:00pm Start: 06-25-2023 take 1 tablet by [facility] every twelve hours Bactrim DS 800-160 MG 1 tablet Orally Twice a day for 10 day(s) Jun, Active Vitamin D-3 1000 UNIT (2 sources) take 1 capsule by [facility] once daily Vitamin D-3 1000 UNIT 1 [...] 2:53pm Start: 12-05-2021 take 1 capsule by [facility] every twelve hours Keflex 500 mg Cap 500 mg = 1 cap(s), Oral, q12hr, # 6 cap(s), Refills(s) 0, Pharmacy: [facility], 168, cm, 12/05/21 10:16:00 EDT, Height/Length Dosing, 97.5, kg, 12/05/21 10:16:00 EDT, Weight Dosing Start Date: 12/05/21 Status: Ordered omeprazole 40 mg delayed release oral capsule (6 sources) Proton Pump Inhibitor Start: 01-21-2024 End: 01-24-2024 take 40 mg by mouth once daily Omeprazole Discontinued 40 MG PO Daily January 20, 2024 11:00pm January 24, 2024 10:02am Start: 09-05-2020 take 1 capsule by [facility] once daily Omeprazole 40 MG [...] aPTT Coag (PPP) [Time] 30.5 s 22.3-36.2 [facility] Basophils Auto (Bld) [#/Vol] on 05-01-2024 Basophils (Bld) [#/Vol] 0.0 10 3/uL 0.0-0.1 [facility] Basophils/100 WBC Auto (Bld) on 05-01-2024 Basophils/100 WBC (Bld) 0.7 % 0.2-2.0 [facility] Eosinophils/100 WBC Auto (Bl d)on 05-01-2024 Eosinophils/100 WBC (Bld) 3.8 % 0.9-7.0 [facility] Erythrocyte distribution wid th Auto (RBC) [Ratio]on 05-01-2024 Erythrocyte distribution width (RBC) [Ratio] 14.4 % 11.0-15.0 [facility] Estimated glomerular filtrat ion rate (GFR) non- Americanon 05-01-2024 GFR/1.73 sq M.predicted among non-blacks MDRD (S/P/Bld) [Vol rate/Area] 51 mL/min/{1.73_m2} Low >=60 mL/min/1.73m 2 [facility] Globulin Calc (S) [Mass/Vol] on 05-01-2024 Globulin (S) [Mass/Vol] 4.3 g/dL F [facility] Hematocrit Auto (Bld) [Volum e fraction]on 05-01-2024 Hematocrit (Bld) [Volume fraction] 39.1 % 36.0-48.0 [facility] Hemoglobin [Mass/volume] in Bloodon 05-01-2024 Hemoglobin (Bld) [Mass/Vol] 13.1 g/dL 12.0-16.0 [facility] INR in Platelet poor plasma by Coagulation assayon 05-01-2024 INR Coag (PPP) [Relative time] 1.07 {INR} [facility] Comment on above: DESIRED INR:2.0-3.0 CONDITIONS NOT LISTED BELOW2.5-3.5 FOR PROSTHETIC HEART VALVE REPLACEMENT2.5-3.5 RECURRENT THROMBOSIS Laboratory - Chemistry and C hemistry - challengeon 05-01-2024 Bilirubin Ql (U) Negative NEGATIVE [facility] Glucose (U) [Mass/Vol] Negative NEGATIVE [facility] Ketones Ql (U) Negative NEGATIVE [facility] pH (U) 6.0 [pH] 5.0-9.0 [facility] Specific gravity (U) [Rel density] 1.020 1.005-1.025 [facility] Urobilinogen Qn (U) 0.2 {Diana'U}/dL 0.2-1.0 [facility] Albumin [Mass/Vol] 2.9 g/dL Low 3.4-5.0 [facility] ALP [Catalytic activity/Vol] 196 U/L High 46-116 [facility] ALT [Catalytic activity/Vol] 44 U/L 14-59 [facility] AST [Catalytic activity/Vol] 51 U/L High 15-37 [facility] Bilirubin [Mass/Vol] 0.7 mg/dL 0.2-1.0 [facility] Bilirubin.direct [Mass/Vol] 0.2 mg/dL 0.0-0.2 [facility] Calcium [Mass/Vol] 9.1 mg/dL 8.5-10.1 [facility] Chloride [Moles/Vol] 107 mmol/L 98-107 [facility] CO2 [Moles/Vol] 25.8 mmol/L 21.0-32.0 [facility] Creatinine [Mass/Vol] 1.05 mg/dL High 0.55-1.02 [facility] GFR/1.73 sq M.predicted MDRD (S/P/Bld) [Vol rate/Area] mL/min/{1.73_m2} >=60 mL/min/1.73m 2 [facility] Glucose [Mass/Vol] 84 mg/dL 74-106 [facility] Potassium [Moles/Vol] 3.7 mmol/L 3.5-5.1 [facility] Protein [Mass/Vol] 7.2 g/dL 6.4-8.2 [facility] Sodium [Moles/Vol] 143 mmol/L 136-145 [facility] Urea nitrogen [Mass/Vol] 20.0 mg/dL High 7.0-18.0 [facility] Urea nitrogen/Creatinine [Mass ratio] 19.0 mg/mg [facility] Laboratory - Hematology and Cell countson 05-01-2024 Immature granulocytes/100 WBC (Bld) 0.2 % 0.0-0.5 [facility] Laboratory - Specimen inform ationon 05-01-2024 Appearance (U) CLEAR CLEAR [facility] Color (U) YELLOW YELLOW [facility] Laboratory - Urinalysison Leukocyte esterase Test strip Ql (U) Negative NEGATIVE [facility] Nitrite Ql (U) Negative NEGATIVE [facility] Protein Ql (U) Negative NEG/TRACE [facility] Leukocytes [#/volume] correc reji for nucleated erythrocytes in Blood by Automated counon 05-01-2024 WBC corrected for nucl RBC Auto (Bld) [#/Vol] 4.5 10 3/uL 4.0-11.0 [facility] Lymphocytes Auto (Bld) [#/Vo l]on 05-01-2024 Lymphocytes (Bld) [#/Vol] 2.0 10 3/uL 1.2-3.8 [facility] Lymphocytes/100 WBC Auto (Bl d)on 05-01-2024 Lymphocytes/100 WBC (Bld) 43.8 % 20.5-60.0 [facility] MCH Auto (RBC) [Entitic mass ]on 05-01-2024 MCH (RBC) [Entitic mass] 34.5 pg High 26.7-34.0 [facility] MCHC Auto (RBC) [Mass/Vol]on 05-01-2024 MCHC (RBC) [Mass/Vol] 33.5 g/dL 29.9-35.2 [facility] MCV Auto (RBC) [Entitic vol] on 05-01-2024 MCV (RBC) [Entitic vol] 102.9 fL High 81.0-99.[address] [facility] Monocytes Auto (Bld) [#/Vol] on 05-01-2024 Monocytes (Bld) [#/Vol] 0.6 10 3/uL 0.3-0.8 [facility] Monocytes/100 WBC Auto (Bld) on 05-01-2024 Monocytes/100 WBC (Bld) 13.8 % High 1.7-12.[address] [facility] Neutrophils Auto (Bld) [#/Vo l]on 05-01-2024 Neutrophils (Bld) [#/Vol] 1.7 10 3/uL 1.4-6.5 [facility] Neutrophils/100 WBC Auto (Bl d)on 05-01-2024 Neutrophils/100 WBC (Bld) 37.7 % Low 43.0-75.0 [facility] No Panel Informationon 05-01 Urine Microscopic Review NO [facility] Urine Occult Blood Negative NEGATIVE [facility] Eosinophils # (Auto) 0.2 10 3/uL 0.0-0.7 [facility] Immature Granulocyte # (Auto) 0.01 10 3/uL 0.00-0.03 [facility] No Panel InformationOrdered By: Johny Perdomo on 05-01-2024 MRSA Screening Culture [facility] Platelet mean volume Auto (B ld) [Entitic vol]on 05-01-2024 Platelet mean volume (Bld) [Entitic vol] 12.6 fL 9.5-13.5 [facility] Platelets Auto (Bld) [#/Vol] on 05-01-2024 Platelets (Bld) [#/Vol] 266 10 3/uL 150-450 [facility] Prothrombin time (PT)on 04-14 PT Coag (PPP) [Time] 11.3 s 9.0-11.6 [facility] RBC Auto (Bld) [#/Vol]on RBC (Bld) [#/Vol] 3.80 10 6/uL Low 4.20-5.40 [facility] Serum or plasma albumin/glob ulin mass ratioon 05-01-2024 Albumin/Globulin [Mass ratio] 0.7 {ratio} [facility] Serum or plasma anion gap de terminationon 05-01-2024 Anion gap [Moles/Vol] 13.9 mmol/L [facility] C Urineon 01-19-2024 Bacteria identified Cx Nom (U) Microbiology PROCEDURE: Urine Culture [R1] SOURCE: U [employer]atch BODY SITE: COLLECTED DATE/TIME: 01/15/2024 14:29 EDT RECEIVED DATE/TIME: 01/15/2024 17:37 EDT START DATE/TIME: 01/15/2024 17:37 EDT FREE TEXT SOURCE: Gage JCAOB, Katie Almonte MD, Katie Arteaga FINAL REPORTS [...] Locations R1: This test was performed at: [facility], [address] [place] [address], [facility]- , , [facility] Comment on above: Performed By: #### 2 [id number] #### [facility] [address] [place] [address] Ambulatory Visit Summaryon 0 01-15-2024 Ambulatory Visit [...] Carrera, URO When: Where: [address] [place] [phone] Medications What How Much When Instructions Unchanged estradiol topical (Estrace 0.1 mg/ g Cream) See instructions Apply pea-sized amound around the opening of the urethra 3 times per week for 1 month then 2 times per week after for maintenance. Pickup at [facility] Unchanged biotin (biotin 5000 mcg oral capsule) Contact prescribing physician if questions or concerns Unchanged cholecalciferol (Vitamin D3 5000 intl units oral capsule) 1 Capsules By Mouth Every day with food Contact prescribing physician if questions or concerns Unchanged fexofenadine (Mary) By Mouth Contact prescribing physician if questions or concerns Pharmacy Information [facility]: [address] [place], [place] [id number] [phone] Allergies codeine (nausea) Problems Ongoing - Any [...] intended to (more content not included)... Normal [facility] Urology Office/Clinic Noteon 01-15-2024 Urology Office/Clinic Note [...] Information Gage JACOB, Katie Arteaga, URL, URO [address] [place] [address]- [phone] Additional Instructions: pt's choice on when to [...] Hyperparathyroidism Osteopeni (more content not included)... Normal [facility] Comment on above: Result Comment: Elec tronically Signed By: Katie Almonte MD\.br\Date and Time Signed: 01/15/24 23:28 EDT\.br\Electronically Co-Signed By: Yuliana Olson\.br\Date and Time Co-Signed: 01/15/24 11:27 EDT [place] 02-21-2023 Screens [id number] Normal [facility] Patient Educationon 02-21-20 Patient Education Obstetrics and [...] these instructions at home: Medicines ? Take wulj-cnu-duveujc and prescription medicines only as told by [...] provider. Document Revised: 02/10/2021 Document Reviewed: 02/10/2021 Language [employer]istics Patient Education ? 2022 [employer]. [facility] Urology Office/Clinic Noteon 02-20-2023 Urology [...] medical exam (more content not included)... Normal [facility] Comment on above: Result Comment: Elec tronically Signed By: Katie Almonte MD\.br\Date and Time Signed: 02/20/23 12:03 EDT\.br\Electronically Co-Signed By: Sepideh Perez\.br\Date and Time Co-Signed: 02/20/23 11:49 EDT Covid-19 PCR (CVDTB)on 07-15 SARS-CoV-2 (COVID-19) RNA AZUL+probe Ql (Unsp spec) Not detected Normal NOT DETECTED [facility] Comment on above: Result Comment: This test is not yet approved or cleared by the [place] FDA. When there are no FDA-approved or cleared tests available, and other criteria are met, FDA can make tests available under an emergency access mechanism called an Emergency Use Authorization (EUA). The EUA for this test is supported by the [place] of Health and Human Service's (HHS's) declaration [...] By: #### C VDTBH #### [facility] [address] [place] [address] Dr. Manjula Arzate CREATININEon 06-13-2022 Creatinine [Mass/Vol] 0.98 mg/dL Normal 0.55-1.02 [facility] Comment on above: Performed By: #### C JESUS #### [facility] [address] [place] [address] Dr. Manjula Arzate EGFR-AF JAPANESE >60 Normal >=60 [facility] Comment on above: Performed By: #### C JESUS #### [facility] [address] [place] [address] Dr. Manjula Arzate EGFR-NON AF JAPANESE 55 mL/min/1.73m2 Critically low >=60 [facility] Comment on above: Performed By: #### C JESUS #### [facility] [address] [place] [address] ABD/PELV W CONon [...] by: DARIO BESS Date: 2022-06-13 17:40 Normal [facility] CT ABD/PELVIS WO CONon 11-27 CT [...] by: DARIO BESS Date: 2021-11-27 10:41 Normal [facility] Vital Signs Date Time Vital Sign Value Performing Clinician Facility 06-10-2024 15:24-0500 Body height 167.6 cm Zaida Child MD Work Phone: [facility] 06-10-2024 15:24-0500 Body mass index (BMI) [Ratio] 32.28 kg/m2 Zaida Child MD Work Phone: [facility] 06-10-2024 15:24-0500 Body weight 90.72 kg Zaida Child MD Work Phone: [facility] 06-10-2024 15:24-0500 Diastolic blood pressure 84 mm[Hg] Zaida Child MD Work Phone: [facility] 06-10-2024 15:24-0500 Systolic blood pressure 132 mm[Hg] Zaida Child MD Work Phone: [facility] 05-28-2024 11:08-0500 Body height 167.6 cm Zaida Child MD Work Phone: [facility] 05-28-2024 11:08-0500 Body mass index (BMI) [Ratio] 33.09 kg/m2 Zaida Child MD Work Phone: [facility] 05-28-2024 11:08-0500 Body temperature 97.39 [degF] Zaida Child MD Work Phone: [facility] 05-28-2024 11:08-0500 Body weight 92.99 kg Zaida Child MD Work Phone: [facility] 05-28-2024 11:08-0500 Diastolic blood pressure 84 mm[Hg] Zaida Child MD Work Phone: [facility] 05-28-2024 11:08-0500 Heart rate 72 /min Zaida Child MD Work Phone: [facility] 05-28-2024 11:08-0500 SaO2% (BldA) [Mass fraction] 97 % Zaida Child MD Work Phone: [facility] 05-28-2024 11:08-0500 Systolic blood pressure 146 mm[Hg] Zaida Child MD Work Phone: [facility] 05-19-2024 11:18-0500 Body height 165.1 cm [facility] 05-19-2024 11:18-0500 Body mass index (BMI) [Ratio] 33.1 kg/m2 [facility] 05-19-2024 11:18-0500 Body weight 90.26 kg [facility] 05-19-2024 11:18-0500 Diastolic blood pressure 76 mm[Hg] [facility] 05-19-2024 11:18-0500 Heart rate 91 /min [facility] 05-19-2024 11:18-0500 Systolic blood pressure 114 mm[Hg] [facility] 05-07-2024 14:39-0400 Body height 165.1 cm [facility] 05-07-2024 14:39-0400 Body mass index (BMI) [Ratio] 33.7 kg/m2 [facility] 05-07-2024 14:39-0400 Body weight 92.07 kg [facility] 05-07-2024 14:39-0400 Diastolic blood pressure 79 mm[Hg] [facility] 05-07-2024 14:39-0400 Heart rate 76 /min [facility] 05-07-2024 14:39-0400 Systolic blood pressure 116 mm[Hg] [facility] 04-29-2024 08:21-0400 Body height 165.1 cm [facility] 04-29-2024 08:21-0400 Body mass index (BMI) [Ratio] 33.8 kg/m2 [facility] 04-29-2024 08:21-0400 Body weight 92.3 kg [facility] 04-29-2024 08:21-0400 Diastolic blood pressure 82 mm[Hg] [facility] 04-29-2024 08:21-0400 Heart rate 74 /min [facility] 04-29-2024 08:21-0400 Respiratory rate 16 /min [facility] 04-29-2024 08:21-0400 SaO2% (BldA) [Mass fraction] 96 % [facility] 04-29-2024 08:21-0400 Systolic blood pressure 120 mm[Hg] [facility] 01-24-2024 10:54-0400 Body height 165.1 cm [facility] 01-24-2024 10:54-0400 Body mass index (BMI) [Ratio] 35.6 kg/m2 [facility] 01-24-2024 10:54-0400 Body weight 97.06 kg [facility] 01-24-2024 10:54-0400 Diastolic blood pressure 81 mm[Hg] [facility] 01-24-2024 10:54-0400 Heart rate 71 /min [facility] 01-24-2024 10:54-0400 Systolic blood pressure 121 mm[Hg] [facility] 01-15-2024 10:37-0400 Blood Pressure Location Katie Lue [facility] 01-15-2024 10:37-0400 Body temperature 97.88 [degF] Katie Lue [facility] 01-15-2024 10:37-0400 Diastolic blood pressure 78 mm[Hg] Katie Lue [facility] 01-15-2024 10:37-0400 Heart rate 71 /min Katie Lue [facility] 01-15-2024 10:37-0400 Systolic blood pressure 132 mm[Hg] Katie Lue [facility] 02-20-2023 10:53-0400 Blood Pressure Location Katie Lue [facility] 02-20-2023 10:53-0400 Diastolic blood pressure 76 mm[Hg] Katie Lue [facility] 02-20-2023 10:53-0400 Heart rate 68 /min Katie Lue [facility] 02-20-2023 10:53-0400 Respiratory rate 16 /min Katie Lue [facility] 02-20-2023 10:53-0400 Systolic blood pressure 130 mm[Hg] Katie Lue [facility] 08-22-2022 11:50-0500 Blood Pressure Location Katie Lue [facility] 08-22-2022 11:50-0500 Diastolic blood pressure 78 mm[Hg] Katie Lue [facility] 08-22-2022 11:50-0500 Heart rate 68 /min Katie Lue [facility] 08-22-2022 11:50-0500 Respiratory rate 16 /min Katie Lue [facility] 08-22-2022 11:50-0500 Systolic blood pressure 132 mm[Hg] Katie Lue [facility] 12-05-2021 10:33-0400 Diastolic blood pressure 81 mm[Hg] Mally Key Jr. [facility] 12-05-2021 10:33-0400 Mean blood pressure 101 mm[Hg] Mally Key Jr. [facility] 12-05-2021 10:33-0400 Systolic blood pressure 142 mm[Hg] Mally Key Jr. [facility] 12-05-2021 10:12-0400 Blood Pressure Location Mally Key Jr. [facility] 12-05-2021 10:12-0400 Diastolic blood pressure 97 mm[Hg] Mally Key Jr. [facility] 12-05-2021 10:12-0400 Heart rate 87 /min Mally Key Jr. [facility] 12-05-2021 10:12-0400 Respiratory rate 16 /min Mally Key Jr. [facility] 12-05-2021 10:12-0400 Systolic blood pressure 163 mm[Hg] Mally Key Jr. [facility] Encounters Encounter Date Encounter Type Care Provider Facility Start: 06-10-2024 End: 06-10-2024 Office outpatient visit 15 minutes Zaida Child MD Work Phone: [facility] Comment on above: Superficial phlebiti s and thrombophlebitis of right lower extremity (Primary Dx); Varicose veins of bilateral lower extremities with pain Start: 06-10-2024 End: 06-10-2024 ambulatory [facility] Start: 06-03-2024 End: 06-04-2024 Orders Only Rosanne Merrill LPN [facility] Start: 05-28-2024 End: 05-28-2024 Office outpatient new 30 minutes Zaida Chidl MD Work Phone: [facility] Comment on above: Superficial phlebiti s and thrombophlebitis of right lower extremity (Primary Dx); Right leg pain; Phlebitis and thrombophlebitis of unspecified site; Varicose veins of bilateral lower extremities with pain Start: 05-19-2024 End: 05-19-2024 ambulatory [facility] Work Phone: Start: 05-19-2024 End: 05-19-2024 Patient encounter procedure [facility] Work Phone: Start: 05-07-2024 Non-patient / Non-visit [facility] Work Phone: Start: 05-07-2024 End: 05-07-2024 ambulatory [facility] Work Phone: Start: 05-07-2024 End: 05-07-2024 Patient encounter procedure [facility] Work Phone: Start: 2024 Non-patient / Non-visit [facility] Physician [facility] Work Phone: Start: 05-01-2024 Patient encounter status [facility] Start: 05-01-2024 Non-patient / Non-visit [facility] Physician [facility] Work Phone: Start: 04-29-2024 End: 04-29-2024 ambulatory [facility] Work Phone: Start: 04-29-2024 End: 04-29-[address] [facility] Work Phone: Start: 04-10-2024 End: 04-10-2024 ambulatory Johny Ray Perdomo DO Facility:[facility] Start: 03-20-2024 ambulatory Johnytae willis DO Facility:[facility] Start: 02-05-2024 Patient encounter procedure [facility] Start: 01-24-2024 End: 01-24-2024 ambulatory [facility] Work Phone: Start: 01-24-2024 End: 01-24-[address] [facility] Work Phone: Start: 01-15-2024 End: 01-15-2024 ambulatory Katie Josée Facility:[facility] Start: 01-15-2024 End: 01-15-2024 Lab Drop off Katie Josée [facility] Start: 01-15-2024 End: 01-15-2024 ambulatory Katie M. Lue Facility:[facility] Start: 01-15-2024 End: 01-15-2024 Patient encounter procedure Katie MPadilla Josée [facility] Start: 08-01-2023 End: 08-01-2023 ambulatory Hafsa Knowles Other [facility] Other Start: 08-01-2023 Telephone encounter Hafsa Benson [facility] Start: 07-30-2023 End: 07-30-2023 ambulatory Hafsa Benson Other [employer] Other Start: 07-30-2023 Telephone encounter Hafsa Knowles [facility] Start: 02-20-2023 End: 02-20-2023 ambulatory Katie Almonte Facility:[facility] Start: 02-20-2023 End: 02-20-2023 Patient encounter procedure Katie Almonte [facility] Start: 08-22-2022 End: 08-22-2022 Patient encounter procedure Katie Almonte [facility] Start: 08-01-2022 End: 08-01-[address] ANTWON BAKER Facility:[facility] Start: 07-30-2022 End: 07-31-[address] ANTWON BAKER Facility:[facility] Start: 07-12-2022 Adult health examination Vanessa Knowles Other [employer] Other Start: 06-13-2022 End: 06-14-[address] HAFSA KNOWLES Facility:[facility] Start: 12-05-2021 End: 12-05-2021 Patient encounter procedure Mally Key Jr. [facility] Start: 11-27-2021 End: 11-28-[address] MALLY [...] Author Start: 06-10-2025 Tobacco Screening Tobacco Screening [facility] Start: 05-28-2025 Tobacco Screening Tobacco Screening [facility] Start: 06-25-2024 End: 06-25-2024 Patient encounter procedure 06/25/2024 9:20 AM EST Office Visit [facility] [address] [place] [phone] Zaida Child MD [address], [address] [address] [facility] [facility] Start: 06-18-2024 End: 06-18-2024 Patient encounter procedure 06/18/2024 10:20 AM EST Office Visit [facility] Vascular Surgery [address] [place] [phone] Zaida Child MD [address] [address] [facility] Start: 05-19-2024 Patient referral [facility] Work Phone: Start: 03-15-2024 COVID-19 Vaccine ( season) COVID-19 Vaccine ( season) [facility] Start: 07-20-2023 Tobacco Screening Tobacco Screening [facility] Start: 2012 Fall Risk Screening Fall Risk Screen ing [facility] Start: 1966 DTaP,Tdap and Td Vaccines (1 - Tdap) DTaP,Tdap and Td Vaccines (1 - Tdap) [facility] Start: 1959 Depression Screening Depression Scre ening [facility] DXA Skeletal system.axial Views for bone density [facility] MG Breast - bilatera l Screening [facility] Patient referral [facility] Work Phone: US Lower extremity v ein - right [facility] XR Tibia and Fibula - right 2 Views [facility] Immunizations Immunization Date Immunization Notes Care Provider Fa cility 04-10-2022 SARS-CoV-2 (COVID-19 ) [id number] Katie Lue [facility] 04-11-2021 SARS-CoV-2 (COVID-19 ) mRNA BNT-162b2 vax Katie Lue [facility] 02-15-2021 zoster vaccine recombinant Katie Lue [facility] 11-30-2020 zoster vaccine recombinant Katie Lue [facility] 08-30-2020 SARS-CoV-2 (COVID-19 ) mRNA BNT-162b2 vax Katie Lue [facility] Comment on above: Result Comment: 2022: [id number] 08-09-2020 SARS-CoV-2 (COVID-19 ) mRNA BNT-162b2 vax Katie Almonte [facility] Comment on above: Result Comment: 2022: [id number] 05-16-2020 influenza virus vaccine, split virus (incl. purified surface antigen) Hafsa Knowles Other [employer] Other 05-16-2020 influenza virus vaccine, unspecified formulation [facility] 04-26-2020 influenza virus vaccine, unspecified formulation Katie Almonte [facility] 12-16-2018 pneumococcal polysaccharide vaccine, 23 valent Hafsa Knowles Other [facility] 11-07-2017 pneumococcal conjuga te vaccine, 13 valent Mally Key Jr. [facility] 11-07-2017 pneumococcal Conjuga te, unspecified formulation; Translations: [Need for prophylactic vaccination against Streptococcus pneumoniae (pneumococcus)] Hafsa Knowles Other [employer] [facility] [employer] Other 10-13-2017 pneumococcal polysaccharide vaccine, 23 valent Katie Lue [facility] 04-14-2017 influenza virus vaccine, unspecified formulation Katie Lue [facility] Payers Date Payer Category Payer Commercial Indemnity [facility] [id number] 2012 Medicare 2012 Unknown 1959 Medicare [id number] 1959 Unknown [id number] 1947 Unknown [id number] 93 1947 Unknown [id number] 93 1947 Unknown [id number] 93 1947 Unknown [id number] 93 1947 Unknown [id number] 27 1947 Unknown [id number] 27 1947 Unknown [id number] 27 1947 Unknown [id number] 96 1947 Unknown [id number] 286 Medicare Medicare [id number] Social History Date Type Detail Facility Start: 12-05-2021 End: 07-18-2022 Tobacco smoking status Never smoked tobacco (finding) [facility] Start: 05-28-2024 End: 06-10-2024 Sex Assigned At Female [facility] Tobacco smoking status Never [facility] Start: 1945 Sex Assigned At Female F [facility] Start: 07-18-2022 Tobacco use and exposure Smokeless tobacco non-user [facility] Start: 05-28-2024 End: 06-10-2024 Alcoholic beverage intake Lifetime non-drinker (finding) [facility] Start: 05-28-2024 End: 06-10-2024 History of Social function [facility] Start: 07-18-2022 Alcohol Comment rare [facility] Start: 1945 Sex assigned at Not on file P [facility] Start: 05-31-2021 Sex Female (finding) [facility] Functional Status Date Assessment Result Facility 01-15-2024 Functional Status N/A [facility] 02-20-2023 Functional Status N/A [facility] 08-22-2022 Functional Status N/A [facility] Clinical Notes 12-05-2021 to 06-10-2024 Assessment & [...] ultrasound compression stockings leg elevation and exercise. [facility] 06-10-2024 Evaluation + Plan note Associated Problem(s): Superficial phlebitis and thrombophlebitis of right lower extremity Warm compresses nonsteroidal anti-inflammatory drugs leg elevation and compression therapy. We will get venous reflux ultrasound and rule out DVT as well. [facility] 06-10-2024 Miscellaneous Notes Associated Problem(s): Varicose veins of bilateral lower extremities with pain Venous reflux ultrasound compression stockings leg elevation and exercise. Associated Problem(s): Superficial phlebitis and thrombophlebitis of right lower extremity Warm compresses nonsteroidal anti-inflammatory drugs leg elevation and compression therapy. We will get venous reflux ultrasound and rule out DVT as well. documented in this encounter [facility] 06-10-2024 History of Presen t illness Narrative [...] 06/14/2021 Performed by Vic Hitchcock DO at [facility] BREAST SURGERY bx, marker in place left [...] Zaida Child MD, TRIPP, RPVI, FSVS, FACS [facility] This note was created with the assistance of a speech recognition program. While intending to generate a timely document that accurately reflects the content of the visit, no guarantee can be provided that every grammatical or spelling mistake has been or will be identified or corrected. Thank you for your understanding. documented in this encounter [facility] 05-28-2024 Evaluation + Plan note Associated Problem(s): Varicose veins of bilateral lower extremities with pain Compression stockings leg elevation exercise. Venous reflux ultrasound. [facility] 05-28-2024 Miscellaneous Notes Associated Problem(s): Varicose veins of bilateral lower extremities with pain Compression stockings leg elevation exercise. Venous reflux ultrasound. Associated Problem(s): Superficial phlebitis and thrombophlebitis of right lower extremity Nonsteroidal anti-inflammatory drugs warm compresses leg elevation and compression therapy when possible documented in this encounter [facility] 05-28-2024 Evaluation + Plan note Associated Problem(s): Superficial phlebitis and thrombophlebitis of right lower extremity Nonsteroidal anti-inflammatory drugs warm compresses leg elevation and compression therapy when possible [facility] 05-28-2024 History of Presen t illness Narrative [...] given by office. Patient was given a [employer] coupon voucher to use, this is not [...] 06/14/2021 Performed by Vic Hitchcock DO at [facility] BREAST SURGERY bx, marker in place left [...] pain - [facility] [place] [place] Phlebitis and thrombophlebitis of unspecified site - [facility] [place] Varicose veins of bilateral lower extremities with pain Zaida Child MD, TRIPP, RPVI, FSVS, FACS [facility] This note was created with the assistance of a speech recognition program. While intending to generate a timely document that accurately reflects the content of the visit, no guarantee can be provided that every grammatical or spelling mistake has been or will be identified or corrected. Thank you for your understanding. documented in this encounter [facility] 04-10-2024 Note Procedure: MRI of th e [...] Signed, Electronically Signed in Other Vendor System) [facility] 04-10-2024 Note Procedure: MRI of th e [...] Signed, Electronically Signed in Other Vendor System) [facility] 01-15-2024 Evaluation + Plan note Diagnostic Tests PendingUrine Culture 01/15/24 [facility] 01-15-2024 Hospital Discharg e instructions Patient [...] provider. Document Revised: 11/09/2021 Document Reviewed: 11/09/2021 Language [employer]istics Patient Education 2022 [employer]. Follow Up Care 02/20/2023 12:02:25 With:Gage JACOB, KEKE Carrera, URO Address: [address] [place] [phone] When: Unknown [facility] Note Patient Education Obstetrics and Gynecology [...] provider. Document Revised: 11/09/2021 Document Reviewed: 11/09/2021 Language Logistics Patient Education ? 2022 [employer]. [facility] 07-30-2023 Evaluation note Encounter Date Diagnosis Assessment Notes Jul, Acute non-recurrent maxillary sinusitis (ICD-10 - J01.00) [facility] Other 08-09-2023 Hospital Discharge instructions Patient Education 02/20/2023 09:58:29 Urinary Tract Infection, Adult, [id number] Urinary Tract Infection, Adult A urinary tract [...] Follow these instructions at home: Medicines Take lmnw-blb-axholmb and prescription medicines only as told by [...] provider. Document Revised: 02/10/2021 Document Reviewed: 02/10/2021 [employer] Patient Education 2022 [employer]. Follow Up Care 08/22/2022 12:56:32 With:Gage JACOB, KEKE Carrera, URO Address: When:Within 1 Year(s) [facility] 02-08-2023 Hospital Discharge instructions Patient Education 08/22/2022 [...] 06/17/2013 Document Revised: 02/18/2019 Document Reviewed: 02/18/2019 Language Logistics Patient Education 2020 [employer]. Follow Up Care 06/13/2022 11:42:12 With:Gage JACOB, KEKE Carrera, URO Address: When: Unknown [facility] 05-24-2022 Hospital Discharge instructions Patient Education 12/05/2021 [...] provider gives to you. In general: Take zcsc-ymg-wmriung and prescription medicines only as told by [...] 01/26/2015 Document Revised: 08/07/2018 Document Reviewed: 08/07/2018 [employer] Patient Education 2020 [employer]. Follow Up Care 06/07/2021 13:20:37 With:Shahid Ontiveros MD, Mally Mendiola, URO Address: [facility] [address], [place] [address]- When: Unknown [facility] evalcdsxnd + Plan note No data available for this section [facility] evaluation + Plan note Future Appointments Appointment Date:02/20/2023 10:45:00 AM Scheduled Provider:Katie Almonte MD Location:[facility] Appointment Type:URO Office Visit [facility] evaluation + Plan note Future Appointments Appointment Date:02/26/2024 10:45:00 AM Scheduled Provider:Katie Almonte MD Location:[facility] Appointment Type:URO Office Visit [facility] evaluation noteNo InformationNort [email or web address] Other evaluation note* Diagnosis Onset Date Resolution Status Menopausal and postmenopausal disorder acute Screening mammogram for breast cancer acute [facility] Work Phone: evaluation noteNo assessment information available [facility] Work Phone: evaluation note* Diagnosis Onset Date Resolution Status Preoperative examination acu te Right leg pain acute [facility] Work Phone: Evaluation note* Diagnosis Onset Date Resolution Status Preoperative examination acu te Right leg pain acute Phlebitis acute Right leg pain acute [facility] Work Phone: Evaluation note* Diagnosis Superficial [...] ABOVE SURGERY Hospitalization History CHILD X'S 2 [facility] Other Hospital Discharge instructions No data available for this section [facility]* Referral to Vascular Surgery Time Frame: 05/19/24, Location: None [facility] Work Phone: InstructionsNot on filedocumented in this encounter [facility] filedocumented in this encounter [facility] filedocumented in this encounter [facility] No data available for this section [facility] Summary Purpose Family History No Family History [...] and content) DATE CREATED AUTHOR 08/02/2022 [facility] [place] [facility] DATE CREATED AUTHOR AUTHOR'S ORGANIZ ATION [facility]/16/2024 [facility] DATE CREATED AUTHOR AUTHOR'S ORGANIZ ATION 01/19/2024 [facility] DATE CREATED AUTHOR AUTHOR'S ORGANIZ ATION 04/11/2024 [facility] DATE CREATED AUTHOR AUTHOR'S ORGANIZ ATION 06/13/2024 [facility] Patient Care team informatio n (unrecognized [...] May 19, 2024 End: May 19, 2024 Monotype 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 [place] [address] [place] [address] PCP - General Family Medicine 06/01/21 [employer] Mechanic 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 Start Date End Date Hafsa Knowles MD [address] [place] [address] PCP - General Family Medicine 06/01/21 Monotype Mechanic 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 Start Date End Date Hafsa Knowles MD [address] [place] [address] PCP - General Family Medicine 06/01/21 REASON FOR VISIT (unrecogniz ed section and content) Reason Comments new patient - right leg pain after cellu litis Specialty Diagnoses / Procedures Referred By Mara gamez Referred To Contact Vascular Surgery Diagnoses Right leg pain Phlebitis and thrombophlebit[place] [address] [place] [phone] Phone: tel: fax: [facility] [address] [place] [phone] Phone: tel: fax: Referral ID Status Reason Start Date Expiration Date Visits Requested Visits Authorized [id number] Pending Review Specialty Services Required 05/20/2024 05/20/2025 [...] BE BASED ON THE PRIMARY CLINICAL RECORDS. [facility] [employer] [facility]. provides no warranty or guarantee of the accuracy or completeness of information in this document.
[2024-07-02 10:06] VITALS: BP 134/72; PULSE 71; O2SAT 98
[2024-07-02] MEDS: LIDOCAINE HCL 1% 100 MG/10 ML MDV INJ (11:54)
[2024-07-02] MEDS: 0.9 % SODIUM CHLORIDE 500 ML, LIDOCAINE HCL 20 ML, SODIUM BICARBONATE 10 MEQ INJ (11:54)
== END 2024-07-02 10:17 | disposition home or self-care (01) ==
LOC: VC 09:51
PROVIDERS: PCP Radiology Diagnostic Radiology; Visit Provider Radiology Diagnostic Radiology
DX: I83.813 Varicose veins of bilateral lower extremities with pain (principal)
CPT/HCPCS: 36478

== ENCOUNTER 2024-07-06 10:53 | Outpatient (OUT) | payer MEDICARE, OTHER, SELFPAY ==
--- NOTE | 2024-07-06 07:52 | VEINCLINIC_ITS ---
Vital Signs 07/06/24 07:52 Weight 92 kg Varicose Veins Patient in today for follow up ultrasound of right lower extremity following EVLT of right GSV completed on 07/02/24. Quentin Michel MD personally performed the services described in this documentation, as scribed by Nichole Wesley RDMS in my presence and it is both accurate and complete. Nichole Michel RDMS, am scribing for, and in the presence of, Dr. Quentin Hernandez and in the presence of the patient. thigh: bilateral, knee: bilateral, calf: bilateral, ankle: bilateral and anderson: bilateral aching, sharp and tender 3 8 weeks Worsened in recent months: Yes standing analgesics, elevating extremities and compression stockings Reports erythema, bruising, heaviness, limb pain, edema and leg edema History of lower extremity trauma: No Superficial thrombophlebitis: Yes Family history of varicose veins: yes Has patient had previous lower extremity venous surgery: No Patient has previously received the following treatment(s) for lower extremity varicose veins: Reports none Does patient have a history of : yes Does patient intend to have future pregnancies: no Has patient had lower extremity venous scan with relux testing: Yes Support hose used: Yes Problems walking or doing physical activity: Yes How does it affect you: Unable to stand for long periods of time Do you walk much: Yes Do you stand much: Yes Review of Systems ROS Narrative Quentin Michel MD personally performed the services described in this documentation, as scribed by Nichole Wesley RDMS in my presence and it is both accurate and complete. Nichole Michel RDMS, am scribing for, and in the presence of, Dr. Quentin Hernandez and in the presence of the patient. Status of ROS 10 or more systems reviewed and unremark able except as noted in history and below Cardiovascular Reports: edema and swelling of feet/ankles Musculoskeletal Reports: extremity pain, extremity swelling, joint pain, joint swelling and muscle cramps Integumentary/Breast Reports: itching, redness, skin pain, skin tenderness, skin swelling and sores [facility] Medical History (Updated 07/01/24 @ 16:16 by Saeid Godinez) Phlebitis and thrombophlebitis of superficial vessels of right lower extremity ?I80.01 - Phlebitis and thrombophlebitis of superficial vessels of right lower extremity (ICD-10) Phlebitis and thrombophlebitis of superficial vessels of left lower extremity ?I80.02 - Phlebitis and thrombophlebitis of superficial vessels of left lower extremity (ICD-10) Pain due to varicose veins of both lower extremities ?I83.813 - Varicose veins of bilateral lower extremities with pain (ICD-10) Raynaud disease ?I73.00 - Raynaud's syndrome without gangrene (ICD-10) Arthritis ?M19.90 - Unspecified osteoarthritis, unspecified site (ICD-10) History of ITP (1989) ?Z86.2 - Personal history of diseases of the blood and blood-forming organs and certain disorders involving the immune mechanism (ICD-10) History of blood transfusion ?Z92.89 - Personal history of other medical treatment (ICD-10) Thyroid cyst ?E04.1 - Nontoxic single thyroid nodule (ICD-10) Phlebitis ?I80.9 - Phlebitis and thrombophlebitis of unspecified site (ICD-10) Varicose vein of leg ?I83.90 - Asymptomatic varicose veins of unspecified lower extremity (ICD-10) Knee pain ?M25.569 - Pain in unspecified knee (ICD-10) Seasonal allergic rhinitis ?J30.2 - Other seasonal allergic rhinitis (ICD-10) Cataracts, bilateral ?H26.9 - Unspecified cataract (ICD-10) Hyperparathyroidism ?E21.3 - Hyperparathyroidism, unspecified (ICD-10) Renal cyst ?N28.1 - Cyst of kidney, acquired (ICD-10) Osteopenia ?M85.80 - Other specified disorders of bone density and structure, unspecified site (ICD-10) Vitamin D deficiency ?E55.9 - Vitamin D deficiency, unspecified (ICD-10) Chronic UTI ?N39.0 - Urinary tract infection, site not specified (ICD-10) Genu varum of right lower extremity ?M21.161 - Varus deformity, not elsewhere classified, right knee (ICD-10) Primary osteoarthritis of right knee ?M17.11 - Unilateral primary osteoarthritis, right knee (ICD-10) Surgical History (Updated 07/02/24 @ 10:11 by Saeid Godinez) Status post laser ablation of incompetent vein ?Z98.890 - Other specified postprocedural states (ICD-10) History of colonoscopy ?Z98.890 - Other specified postprocedural states (ICD-10) H/O knee surgery ?Z98.890 - Other specified postprocedural states (ICD-10) H/O breast biopsy ?Z98.890 - Other specified postprocedural states (ICD-10) History of cholecystectomy ?Z90.49 - Acquired absence of other specified parts of digestive tract (ICD- 10) H/O oophorectomy H/O parathyroidectomy ?Z98.890 - Other specified postprocedural states (ICD-10) ?Z90.89 - Acquired absence of other organs (ICD-10) History of hysterectomy ?Z90.710 - Acquired absence of both cervix and uterus (ICD-10) H/O tubal ligation ?Z98.51 - Tubal ligation status (ICD-10) H/O splenectomy (1989) ?Z90.81 - Acquired absence of spleen (ICD-10) S/P arthroscopic knee surgery ?Z98.890 - Other specified postprocedural states (ICD-10) Family History (Updated 06/16/24 @ 10:21 by Hilda Reyes RN) Mother Varicose veins of bilateral lower extremities with pain Father Family history of myocardial infarction Other Cancer Family history of DVT Family history of cancer Social History (Updated 05/01/24 @ 08:31 by Francesca Zavala NP) Within the past year, how often did you have a drink containing alcohol: never Score interpretation: A score less than 3 is consistent with normal alcohol consumption. 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 Highest level of school completed/degree received: some college, no degree Little interest or pleasure in doing things: not at all Feeling down, depressed, or hopeless: not at all Meds Home Medications and Allergies Home Medications ?Medication ?Instructions ?Recorded ?Confirmed ?Type biotin 5 mg capsule 5 mg PO DAILY 05/01/24 06/16/24 History cholecalciferol (vitamin D3) 125 125 mcg PO DAILY 05/01/24 06/16/24 History mcg (5,000 unit) capsule cranberry 500 mg capsule 500 mg PO DAILY 05/01/24 06/16/24 History d-mannose 500 mg capsule mg PO 05/01/24 History estradiol 0.01% (0.1 mg/gram) 0.5 appful vaginal .twice a week 05/01/24 06/16/24 History vaginal cream loratadine 10 mg capsule 10 mg PO DAILY 05/01/24 06/16/24 History [id number] 30 mg-folic cap PO 06/16/24 History acid 1 mg-dss 50 mg-dha 260 mg capsule Allergies Allergy/AdvReac Type Severity Reaction Status Date / Time codeine AdvReac Nausea Verified 05/01/24 08:26 Exam Narrative Exam Narrative: Quentin Michel MD personally performed the services described in this documentation, as scribed by Nichole Wesley RDMS in my presence and it is both accurate and complete. Nichole Michel RDMS am scribing for, and in the presence of, Dr. Quentin Hernandez and in the presence of the patient. Constitutional Documenting provider has reviewed patient's vital signs: yes Common normals: oriented x3 Nutritional appearance: overweight Lymph Lymphatic: no lymphedema noted Cardio Peripheral pulses: posterior tibial pulses present and dorsalis pedis pulses present Extremity General: calf tenderness, edema and other findings Right lower extremity: lower leg Right lower leg: inspection and palpation Left lower extremity: lower leg Left lower leg: inspection and palpation Other: Right mid medial calf healed wound 1.0x1.5cm Neuro Common normals: oriented x3 Results Imaging Venous US: Radiologist's impression: Heat induced thrombus in right GSV 3.6 cm from SFJ and extends to proximal calf. Quentin Michel MD personally performed the services described in this documentation, as scribed by Nichole Wesley RDMS in my presence and it is both accurate and complete. Nichole Michel RDMS, am scribing for, and in the presence of, Dr. Quentin Hernandez and in the presence of the patient. Assessment and Plan Assessment and Plan (1) Phlebitis and thrombophlebitis of superficial vessels of right lower extremity: Plan Plan is for patient to return for EVLT of left GSV on 07/09/24. Quentin Michel MD personally performed the services described in this documentation, as scribed by Nichole Wesley RDMS in my presence and it is both accurate and complete. Nichole Michel RDMS, am scribing for, and in the presence of, Dr. Quentin Hernandez and in the presence of the patient.
--- NOTE | 2024-07-06 07:58 | W.VEIN ---
Discharge Plan Discharge Disposition: Home, Self-Care Outpatient Diagnostics: VC Endovenous Ablation 1VeinRT (Routine) Timeframe: 3 Weeks Facility: [facility] - Location: Vein Center Ordered By: Quentin Hernandez Follow Up Appointments: 07/09/24 Plan of Treatment: EVLT of right AASV EVLT Tumescent Anesthesia: 500 mL 0.9% NS with 20 mL 1% Lidocaine and 10 mL 8.4% NAHCO3 Buffered Local Anesthesia: 10 mL of 1% Lidocaine Buffered Print Language: Uzbek Discharge Date/Time: 07/06/24 13:31
--- NOTE | 2024-07-06 10:55 | VEIN_ITS ---
Patient Name: BHAVESH MONTEIRO MR#: [id number] : 1945 Exam Date: 07/06/2024 Ordering Doctor: DR QUENTIN HERNANDEZ M.D. RADIOLOGY REPORT PROCEDURE: VC EXT VENOUS RT LMTD COMPARISON: None. INDICATIONS: I80.01 - Phlebitis and thrombophlebitis of superficial veins right leg TECHNIQUE: Lower extremity rucker scale and Duplex Doppler evaluation of the deep venous system from the inguinal ligament through the calf veins. FINDINGS: REGION: Right lower extremity. THROMBI: Negative for DVT. Heat induced thrombus in right GSV 3.6cm from SFJ and extends to proximal lower leg. Thrombus also noted in varicose veins in prox-distal medial lower leg. COMPRESSIBILITY: Non-compressible segments corresponding to thrombus FLOW: Areas of no flow. Areas of no flow corresponding to thrombus CONCLUSION: 1. Post ablation occlusion of the right great saphenous vein with heat induced thrombus 3.6 cm from the saphenofemoral junction Dictated by: Quentin Hernandez MD on 07/06/2024 at 11:19 Approved by: Quentin Hernandez MD on 07/06/2024 at 11:20
--- NOTE | 2024-07-06 10:55 | VEIN_ITS ---
Patient Name: BHAVESH MONTEIRO MR#: [id number] : 1945 Exam Date: 07/06/2024 Ordering Doctor: DR QUENTIN HERNANDEZ M.D. RADIOLOGY REPORT PROCEDURE: [facility] EST LMTD VEIN CENTER - OFFICE VISIT FOLLOW [facility] PROGRESS NOTES: The patient reports moderate pain on the right leg related to her known thrombophlebitis. The patient has taken oral ibuprofen with good result. The patient had no difficulty with the right leg following intravenous laser ablation. The patient has worn compression stocking. Physical exam demonstrates the incision to be seal. Thrombosed right great saphenous vein can be palpated. 2 cm area of bruising medial right mid thigh. No erythema or warmth to suggest cellulitis or thrombophlebitis of the great saphenous vein. No active ulceration Review of the ultrasound performed the same day demonstrates occlusive thrombus extending throughout the treated right great saphenous vein with heat induced thrombus 3.2 cm from the saphenofemoral junction. The patient expressed a desire to proceed with treatment of incompetent left great saphenous vein. VEIN/[facility] EST LMTD IMPRESSION: 1. Successful ablation of the right great saphenous vein 2. Persistent incompetent left great saphenous vein PLAN: Intravenous laser ablation left great saphenous vein Nurse notes, history and physical were reviewed and confirmed, see attached forms. The nurse was present throughout the physical exam and consultation Dictated by: Quentin Hernandez MD on 07/06/2024 at 11:34 Approved by: Quentin Hernandez MD on 07/06/2024 at 11:35
--- OUTSIDE RECORDS SUMMARY | 2024-07-06 10:58 | XMS_ITS | CCD ---
Author Organization [facility] Care Team Providers Care 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 Name Role Phone HAFSA KNOWLES Primary [...] Allergy 12-26-19 16 Nausea [facility] (1 source) Codeine Drug Allergy [facility] Repository (2 sources) Acetaminophen / HYDROcodone Drug Allergy Unknown [email or web address] Other (2 sources) Codeine Drug Allergy Unknown [email or web address] Other (2 sources) patient allergy list reviewed by nurse or physicia Propensity to adverse reactions 04-29-20 15 Comment:Done [email or web address] Other (2 sources) Allergies Reconciled Propensity to adverse reactions Unknown [facility]we[facility]r [facility] [employer] Other (4 sources) Acetaminophen Drug Allergy 01-24-20 [facility] (4 sources) HYDROcodone Drug Allergy 01-24-20 [facility] Medications Current Medications Medication Drug Class(es) Dates [...] mouth. Active take [address] [facility] once daily Biotin 5000 5 [...] 2 times per week after for maintenance., [facility], 168, cm, 01/15/24 10:54:00 EDT, Height/Length Dosing, 96, kg, 01/15/24 10:54:00 EDT, Weight Dosing Start Date: 01/15/24 Status: Ordered Start: 08-22-2022 Estrace 0.1 mg /g Cream See Instructions, 42.5 gm, Refill(s) 6, Apply pea-sized amound around the opening of the urethra 3 times per week for 1 month then 2 times per week after for maintenance., [employer] [facility], 168, cm, 08/22/22 11:52:00 EST, [...] given by office. Patient was given a [employer] coupon voucher to use, this is not to be ran through patients insurance. 24 tablet 07/18/2022 Active sulfamethoxazole 800 mg / trimethoprim 160 mg oral tablet (3 sources) Dihydrofolate Reductase Inhibitor Antibacterial, Sulfonamide Antimicrobial Start: 05-08-2024 take 1 tablet by mouth twice daily Sulfamethoxazole-Trimethoprim Active 1 TAB PO Twice daily May 07, 2024 11:00pm Start: 06-25-2023 take 1 tablet by [facility] every twelve hours Bactrim DS 800-160 MG 1 tablet Orally Twice a day for 10 day(s) Jun, Active Vitamin D-3 1000 UNIT (2 sources) take 1 capsule by [facility] once daily Vitamin D-3 1000 UNIT [...] 2:53pm Start: 12-05-2021 take 1 capsule by [facility] every twelve hours Keflex 500 mg Cap 500 mg = 1 cap(s), Oral, q12hr, # 6 cap(s), Refills(s) 0, Pharmacy: [id number], 168, cm, 12/05/21 10:16:00 EDT, Height/Length Dosing, 97.5, kg, 12/05/21 10:16:00 EDT, Weight Dosing Start Date: 12/05/21 Status: Ordered omeprazole 40 mg delayed release oral capsule (6 sources) Proton Pump Inhibitor Start: 01-21-2024 End: 01-24-2024 take 40 mg by mouth once daily Omeprazole Discontinued 40 MG PO Daily January 20, 2024 11:00pm January 24, 2024 10:02am Start: 09-05-2020 take 1 capsule by [facility] once daily Omeprazole 40 MG Omeprazole [...] aPTT Coag (PPP) [Time] 30.5 s 22.3-36.2 [facility] Basophils Auto (Bld) [#/Vol] on 05-01-2024 Basophils (Bld) [#/Vol] 0.0 10 3/uL 0.0-0.1 [facility] Basophils/100 WBC Auto (Bld) on 05-01-2024 Basophils/100 WBC (Bld) 0.7 % 0.2-2.0 [facility] Eosinophils/100 WBC Auto (Bl d)on 05-01-2024 Eosinophils/100 WBC (Bld) 3.8 % 0.9-7.0 [facility] Erythrocyte distribution wid th Auto (RBC) [Ratio]on 05-01-2024 Erythrocyte distribution width (RBC) [Ratio] 14.4 % 11.0-15.0 [facility] Estimated glomerular filtrat ion rate (GFR) non- Americanon 05-01-2024 GFR/1.73 sq M.predicted among non-blacks MDRD (S/P/Bld) [Vol rate/Area] 51 mL/min/{1.73_m2} Low >=60 mL/min/1.73m 2 [facility] Globulin Calc (S) [Mass/Vol] on 05-01-2024 Globulin (S) [Mass/Vol] 4.3 g/dL F [facility] Hematocrit Auto (Bld) [Volum e fraction]on 05-01-2024 Hematocrit (Bld) [Volume fraction] 39.1 % 36.0-48.0 [facility] Hemoglobin [Mass/volume] in Bloodon 05-01-2024 Hemoglobin (Bld) [Mass/Vol] 13.1 g/dL 12.0-16.0 [facility] INR in Platelet poor plasma by Coagulation assayon 05-01-2024 INR Coag (PPP) [Relative time] 1.07 {INR} [facility] Comment on above: DESIRED INR:2.0-3.0 CONDITIONS NOT LISTED BELOW2.5-3.5 FOR PROSTHETIC HEART VALVE REPLACEMENT2.5-3.5 RECURRENT THROMBOSIS Laboratory - Chemistry and C hemistry - challengeon 05-01-2024 Bilirubin Ql (U) Negative NEGATIVE [facility] Glucose (U) [Mass/Vol] Negative NEGATIVE [facility] Ketones Ql (U) Negative NEGATIVE [facility] pH (U) 6.0 [pH] 5.0-9.0 [facility] Specific gravity (U) [Rel density] 1.020 1.005-1.025 [facility] Urobilinogen Qn (U) 0.2 {Diana'U}/dL 0.2-1.0 [facility] Albumin [Mass/Vol] 2.9 g/dL Low 3.4-5.0 [facility] ALP [Catalytic activity/Vol] 196 U/L High 46-116 [facility] ALT [Catalytic activity/Vol] 44 U/L 14-59 [facility] AST [Catalytic activity/Vol] 51 U/L High 15-37 [facility] Bilirubin [Mass/Vol] 0.7 mg/dL 0.2-1.0 [facility] Bilirubin.direct [Mass/Vol] 0.2 mg/dL 0.0-0.2 [facility] Calcium [Mass/Vol] 9.1 mg/dL 8.5-10.1 [facility] Chloride [Moles/Vol] 107 mmol/L 98-107 [facility] CO2 [Moles/Vol] 25.8 mmol/L 21.0-32.0 [facility] Creatinine [Mass/Vol] 1.05 mg/dL High 0.55-1.02 [facility] GFR/1.73 sq M.predicted MDRD (S/P/Bld) [Vol rate/Area] mL/min/{1.73_m2} >=60 mL/min/1.73m 2 [facility] Glucose [Mass/Vol] 84 mg/dL 74-106 [facility] Potassium [Moles/Vol] 3.7 mmol/L 3.5-5.1 [facility] Protein [Mass/Vol] 7.2 g/dL 6.4-8.2 [facility] Sodium [Moles/Vol] 143 mmol/L 136-145 [facility] Urea nitrogen [Mass/Vol] 20.0 mg/dL High 7.0-18.0 [facility] Urea nitrogen/Creatinine [Mass ratio] 19.0 mg/mg [facility] Laboratory - Hematology and Cell countson 05-01-2024 Immature granulocytes/100 WBC (Bld) 0.2 % 0.0-0.5 [facility] Laboratory - Specimen inform ationon 05-01-2024 Appearance (U) CLEAR CLEAR [facility] Color (U) YELLOW YELLOW [facility] Laboratory - Urinalysison Leukocyte esterase Test strip Ql (U) Negative NEGATIVE [facility] Nitrite Ql (U) Negative NEGATIVE [facility] Protein Ql (U) Negative NEG/TRACE [facility] Leukocytes [#/volume] correc reji for nucleated erythrocytes in Blood by Automated counon 05-01-2024 WBC corrected for nucl RBC Auto (Bld) [#/Vol] 4.5 10 3/uL 4.0-11.0 [facility] Lymphocytes Auto (Bld) [#/Vo l]on 05-01-2024 Lymphocytes (Bld) [#/Vol] 2.0 10 3/uL 1.2-3.8 [facility] Lymphocytes/100 WBC Auto (Bl d)on 05-01-2024 Lymphocytes/100 WBC (Bld) 43.8 % 20.5-60.0 [facility] MCH Auto (RBC) [Entitic mass ]on 05-01-2024 MCH (RBC) [Entitic mass] 34.5 pg High 26.7-34.0 [facility] MCHC Auto (RBC) [Mass/Vol]on 05-01-2024 MCHC (RBC) [Mass/Vol] 33.5 g/dL 29.9-35.2 [facility] MCV Auto (RBC) [Entitic vol] on 05-01-2024 MCV (RBC) [Entitic vol] 102.9 fL High 81.0-99.0 F [facility] Monocytes Auto (Bld) [#/Vol] on 05-01-2024 Monocytes (Bld) [#/Vol] 0.6 10 3/uL 0.3-0.8 [facility] Monocytes/100 WBC Auto (Bld) on 05-01-2024 Monocytes/100 WBC (Bld) 13.8 % High 1.7-12.0 F [facility] Neutrophils Auto (Bld) [#/Vo l]on 05-01-2024 Neutrophils (Bld) [#/Vol] 1.7 10 3/uL 1.4-6.5 [facility] Neutrophils/100 WBC Auto (Bl d)on 05-01-2024 Neutrophils/100 WBC (Bld) 37.7 % Low 43.0-75.0 [facility] No Panel Informationon 05-01 Urine Microscopic Review NO [facility] Urine Occult Blood Negative NEGATIVE [facility] Eosinophils # (Auto) 0.2 10 3/uL 0.0-0.7 [facility] Immature Granulocyte # (Auto) 0.01 10 3/uL 0.00-0.03 [facility] No Panel InformationOrdered By: Johny Perdomo on 05-01-2024 MRSA Screening Culture Fi [facility] Platelet mean volume Auto (B ld) [Entitic vol]on 05-01-2024 Platelet mean volume (Bld) [Entitic vol] 12.6 fL 9.5-13.5 [facility] Platelets Auto (Bld) [#/Vol] on 05-01-2024 Platelets (Bld) [#/Vol] 266 10 3/uL 150-450 [facility] Prothrombin time (PT)on 04-14 PT Coag (PPP) [Time] 11.3 s 9.0-11.6 [facility] RBC Auto (Bld) [#/Vol]on RBC (Bld) [#/Vol] 3.80 10 6/uL Low 4.20-5.40 [facility] Serum or plasma albumin/glob ulin mass ratioon 05-01-2024 Albumin/Globulin [Mass ratio] 0.7 {ratio} [facility] Serum or plasma anion gap de terminationon 05-01-2024 Anion gap [Moles/Vol] 13.9 mmol/L [facility] C Urineon 01-19-2024 Bacteria identified [...] Locations R1: This test was performed at: [facility], [address] [place] [address], [employer]- , , [facility] Comment on above: Performed By: #### [id number] #### [facility] [address] [place] [address] Ambulatory Visit Summaryon 0 01-15-2024 Ambulatory Visit [...] Carrera, URO When: Where: [address] [place] [phone] Medications What How Much When Instructions Unchanged estradiol topical (Estrace 0.1 mg/ g Cream) See instructions Apply pea-sized amound around the opening of the urethra 3 times per week for 1 month then 2 times per week after for maintenance. Pickup at [facility] Unchanged biotin (biotin 5000 mcg oral capsule) Contact prescribing physician if questions or concerns Unchanged cholecalciferol (Vitamin D3 5000 intl units oral capsule) 1 Capsules By Mouth Every day with food Contact prescribing physician if questions or concerns Unchanged fexofenadine (Mary) By Mouth Contact prescribing physician if questions or concerns Pharmacy Information [facility]: [address] [place], [place] [id number] [phone] Allergies codeine (nausea) Problems Ongoing - Any [...] intended to (more content not included)... Normal [facility] Urology Office/Clinic Noteon 01-15-2024 Urology Office/Clinic [...] Information Gage JACOB, Katie Arteaga, URL, [place]RO [address], [place] [address]- [phone] Additional Instructions: pt's choice on when to [...] Hyperparathyroidism Osteopeni (more content not included)... Normal [facility] Comment on above: Result Comment: Elec tronically Signed By: Katie Almonte MD\.br\Date and Time Signed: 01/15/24 23:28 EDT\.br\Electronically Co-Signed By: Yuliana Olson\.br\Date and Time Co-Signed: 01/15/24 11:27 EDT [place] 02-21-2023 Screens [id number] Normal [facility] Patient Educationon 02-21-20 Patient Education Obstetrics [...] these instructions at home: Medicines ? Take [id number]-[id number] and prescription medicines only as told by [...] provider. Document Revised: 02/10/2021 Document Reviewed: 02/10/2021 [employer] Patient Education ? 2022 [employer]. [facility] Urology Office/Clinic Noteon 02-20-2023 Urology Office/Clinic [...] medical exam (more content not included)... Normal [facility] Comment on above: Result Comment: Elec tronically Signed By: Katie Almonte MD\.br\Date and Time Signed: 02/20/23 12:03 EDT\.br\Electronically Co-Signed By: Sepideh Perez\.br\Date and Time Co-Signed: 02/20/23 11:49 EDT Covid-19 PCR (CVDTB)on 07-15 SARS-CoV-2 (COVID-19) RNA AZUL+probe Ql (Unsp spec) Not detected Normal NOT DETECTED [facility] Comment on above: Result Comment: This test is not yet approved or cleared by the [place] FDA. When there are no FDA-approved or cleared tests available, and other criteria are met, FDA can make tests available under an emergency access mechanism called an Emergency Use Authorization (EUA). The EUA for this test is supported by the [place] of Health and Human Service's (HHS's) declaration [...] SARS-CoV-2. Performed By: #### C VDTBH #### [facility] [address] [place] [address] Dr. Manjula Arzate CREATININEon 06-13-2022 Creatinine [Mass/Vol] 0.98 mg/dL Normal 0.55-1.02 [facility] Comment on above: Performed By: #### C JESUS #### [facility] [address] [place] [address] Dr. Manjula Arzate EGFR-AF MONTSERRATIAN >60 Normal >=60 [facility] Comment on above: Performed By: #### C JESUS #### [facility] [address] [place] [address] Dr. Manjula Arzate EGFR-NON AF MONTSERRATIAN 55 mL/min/1.73m2 Critically low >=60 [facility] Comment on above: Performed By: #### C JESUS #### [facility] [address] [place] [address] ABD/PELV W CONon [...] by: DARIO BESS Date: 2022-06-13 17:[address] [facility] CT ABD/PELVIS WO CONon 11-27 [...] by: DARIO BESS Date: 2021-11-27 10:[address] [facility] Vital Signs Date Time Vital Sign Value Performing Clinician Facility 06-10-2024 15:24-0500 Body height 167.6 cm Zaida Child MD Work Phone: [facility] 06-10-2024 15:24-0500 Body mass index (BMI) [Ratio] 32.28 kg/m2 Zaida Child MD Work Phone: [facility] 06-10-2024 15:24-0500 Body weight 90.72 kg Zaida Child MD Work Phone: [facility] 06-10-2024 15:24-0500 Diastolic blood pressure 84 mm[Hg] Zaida Child MD Work Phone: [facility] 06-10-2024 15:24-0500 Systolic blood pressure 132 mm[Hg] Zaida Child MD Work Phone: [facility] 05-28-2024 11:08-0500 Body height 167.6 cm Zaida Child MD Work Phone: [facility] 05-28-2024 11:08-0500 Body mass index (BMI) [Ratio] 33.09 kg/m2 Zaida Child MD Work Phone: [facility] 05-28-2024 11:08-0500 Body temperature 97.39 [degF] Zaida Child MD Work Phone: [facility] 05-28-2024 11:08-0500 Body weight 92.99 kg Zaida Child MD Work Phone: [facility] 05-28-2024 11:08-0500 Diastolic blood pressure 84 mm[Hg] Zaida Child MD Work Phone: [facility] 05-28-2024 11:08-0500 Heart rate 72 /min Zaida Child MD Work Phone: [facility] 05-28-2024 11:08-0500 SaO2% (BldA) [Mass fraction] 97 % Zaida Child MD Work Phone: [facility] 05-28-2024 11:08-0500 Systolic blood pressure 146 mm[Hg] Zaida Child MD Work Phone: [facility] 05-19-2024 11:18-0500 Body height 165.1 cm [facility] 05-19-2024 11:18-0500 Body mass index (BMI) [Ratio] 33.1 kg/m2 [facility] 05-19-2024 11:18-0500 Body weight 90.26 kg [facility] 05-19-2024 11:18-0500 Diastolic blood pressure 76 mm[Hg] [facility] 05-19-2024 11:18-0500 Heart rate 91 /min [facility] 05-19-2024 11:18-0500 Systolic blood pressure 114 mm[Hg] [facility] 05-07-2024 14:39-0400 Body height 165.1 cm [facility] 05-07-2024 14:39-0400 Body mass index (BMI) [Ratio] 33.7 kg/m2 [facility] 05-07-2024 14:39-0400 Body weight 92.07 kg [facility] 05-07-2024 14:39-0400 Diastolic blood pressure 79 mm[Hg] [facility] 05-07-2024 14:39-0400 Heart rate 76 /min [facility] 05-07-2024 14:39-0400 Systolic blood pressure 116 mm[Hg] [facility] 04-29-2024 08:21-0400 Body height 165.1 cm [facility] 04-29-2024 08:21-0400 Body mass index (BMI) [Ratio] 33.8 kg/m2 [facility] 04-29-2024 08:21-0400 Body weight 92.3 kg [facility] 04-29-2024 08:21-0400 Diastolic blood pressure 82 mm[Hg] [facility] 04-29-2024 08:21-0400 Heart rate 74 /min [facility] 04-29-2024 08:21-0400 Respiratory rate 16 /min [facility] 04-29-2024 08:21-0400 SaO2% (BldA) [Mass fraction] 96 % [facility] 04-29-2024 08:21-0400 Systolic blood pressure 120 mm[Hg] [facility] 01-24-2024 10:54-0400 Body height 165.1 cm [facility] 01-24-2024 10:54-0400 Body mass index (BMI) [Ratio] 35.6 kg/m2 [facility] 01-24-2024 10:54-0400 Body weight 97.06 kg [facility] 01-24-2024 10:54-0400 Diastolic blood pressure 81 mm[Hg] [facility] 01-24-2024 10:54-0400 Heart rate 71 /min [facility] 01-24-2024 10:54-0400 Systolic blood pressure 121 mm[Hg] [facility] 01-15-2024 10:37-0400 Blood Pressure Location Katie Lue [facility] 01-15-2024 10:37-0400 Body temperature 97.88 [degF] Katie Lue [facility] 01-15-2024 10:37-0400 Diastolic blood pressure 78 mm[Hg] Katie Lue [facility] 01-15-2024 10:37-0400 Heart rate 71 /min Katie Lue [facility] 01-15-2024 10:37-0400 Systolic blood pressure 132 mm[Hg] Katie Lue [facility] 02-20-2023 10:53-0400 Blood Pressure Location Katie Lue [facility] 02-20-2023 10:53-0400 Diastolic blood pressure 76 mm[Hg] Katie Lue [facility] 02-20-2023 10:53-0400 Heart rate 68 /min Katie Lue [facility] 02-20-2023 10:53-0400 Respiratory rate 16 /min Katie Lue [facility] 02-20-2023 10:53-0400 Systolic blood pressure 130 mm[Hg] Katie Lue [facility] 08-22-2022 11:50-0500 Blood Pressure Location Katie Lue [facility] 08-22-2022 11:50-0500 Diastolic blood pressure 78 mm[Hg] Katie Lue [facility] 08-22-2022 11:50-0500 Heart rate 68 /min Katie Lue [facility] 08-22-2022 11:50-0500 Respiratory rate 16 /min Ktaie Lue [facility] 08-22-2022 11:50-0500 Systolic blood pressure 132 mm[Hg] Katie Lue [facility] 12-05-2021 10:33-0400 Diastolic blood pressure 81 mm[Hg] Mally Key Jr. [facility] 12-05-2021 10:33-0400 Mean blood pressure 101 mm[Hg] Mally Key Jr. [facility] 12-05-2021 10:33-0400 Systolic blood pressure 142 mm[Hg] Mally Key Jr. [facility] 12-05-2021 10:12-0400 Blood Pressure Location Mally Key Jr. [facility] 12-05-2021 10:12-0400 Diastolic blood pressure 97 mm[Hg] Mally Key Jr. [facility] 12-05-2021 10:12-0400 Heart rate 87 /min Mally Key Jr. [facility] 12-05-2021 10:12-0400 Respiratory rate 16 /min Mally Key Jr. [facility] 12-05-2021 10:12-0400 Systolic blood pressure 163 mm[Hg] Mally Key Jr. [facility] Encounters Encounter Date Encounter Type Care Provider Facility Start: 06-10-2024 End: 06-10-2024 Office outpatient visit 15 minutes Zaida Child MD Work Phone: [facility] Comment on above: Superficial phlebiti s and thrombophlebitis of right lower extremity (Primary Dx); Varicose veins of bilateral lower extremities with pain Start: 06-10-2024 End: 06-10-2024 ambulatory [facility] Start: 06-03-2024 End: 06-04-2024 Orders Only Rosanne Merrill LPN [facility] Start: 05-28-2024 End: 05-28-2024 Office outpatient new 30 minutes Zaida Child MD Work Phone: [facility] Comment on above: Superficial phlebiti s and thrombophlebitis of right lower extremity (Primary Dx); Right leg pain; Phlebitis and thrombophlebitis of unspecified site; Varicose veins of bilateral lower extremities with pain Start: 05-19-2024 End: 05-19-2024 ambulatory [facility] Work Phone: Start: 05-19-2024 End: 05-19-2024 Patient encounter procedure [facility] Work Phone: Start: 05-07-2024 Non-patient / Non-visit [facility] Work Phone: Start: 05-07-2024 End: 05-07-2024 ambulatory [facility] Work Phone: Start: 05-07-2024 End: 05-07-2024 Patient encounter procedure [facility] Work Phone: Start: 2024 Non-patient / Non-visit [facility] Work Phone: Start: 05-01-2024 Patient encounter status [facility] Start: 05-01-2024 Non-patient / Non-visit [facility] Work Phone: Start: 04-29-2024 End: 04-29-2024 ambulatory [facility] Work Phone: Start: 04-29-2024 End: 04-29-2024 Patient encounter procedure [facility] Work Phone: Start: 04-10-2024 End: 04-10-2024 ambulatory Johny Ray Perdomo DO Facility:[facility] Start: 03-20-2024 ambulatory Johnytae willis DO Facility:[facility] Start: 02-05-2024 Patient encounter procedure [facility] Start: 01-24-2024 End: 01-24-2024 ambulatory [facility] Work Phone: Start: 01-24-2024 End: 01-24-2024 Patient encounter procedure [facility] Work Phone: Start: 01-15-2024 End: 01-15-2024 ambulatory Katie Josée [facility] Start: 01-15-2024 End: 01-15-2024 Lab Drop off Katie Josée [facility] Start: 01-15-2024 End: 01-15-2024 ambulatory Katie M. Lue Facility:[facility] Start: 01-15-2024 End: 01-15-2024 Patient encounter procedure Katie MPadilla Josée [facility] Start: 08-01-2023 End: 08-01-2023 ambulatory Hafsa Knowles Other [facility] [employer] Other Start: 08-01-2023 Telephone encounter Hafsa Benson [facility] Start: 07-30-2023 End: 07-30-2023 ambulatory Hafsa Benson Other [email or web address] Other Start: 07-30-2023 Telephone encounter Hafsa Knowles [facility] Start: 02-20-2023 End: 02-20-2023 ambulatory Katie Almonte Facility:[facility] Start: 02-20-2023 End: 02-20-2023 Patient encounter procedure Katie Almonte [facility] Start: 08-22-2022 End: 08-22-2022 Patient encounter procedure Katie Almonte [facility] Start: 08-01-2022 End: 08-01-[address] ANTWON BAKER Facility:[facility] Start: 07-30-2022 End: 07-31-[address] ANTWON BAKER Facility:[facility] Start: 07-12-2022 Adult health examination Vanessa Knowles Other [email or web address] Other Start: 06-13-2022 End: 06-14-[address] HAFSA KNOWLES Facility:[facility] Start: 12-05-2021 End: 12-05-2021 Patient encounter procedure Mally Key Jr. [facility] Start: 11-27-2021 End: 11-28-[address] [...] Author Start: 06-10-2025 Tobacco Screening Tobacco Screening [facility] Start: 05-28-2025 Tobacco Screening Tobacco Screening [facility] Start: 06-25-2024 End: 06-25-2024 Patient encounter procedure 06/25/2024 9:20 AM EST Office Visit [facility] Vascular Surgery [address] [place] [phone] Zaida Child MD [address], [address] [address] [facility] Start: 06-18-2024 End: 06-18-2024 Patient encounter procedure 06/18/2024 10:20 AM EST Office Visit [facility] Vascular Surgery [address] [place] [phone] Zaida Child MD [address] [address] [facility] Start: 05-19-2024 Patient referral [facility] Work Phone: Start: 03-15-2024 COVID-19 Vaccine ( season) COVID-19 Vaccine ( season) [facility] Start: 07-20-2023 Tobacco Screening Tobacco Screening [facility] Start: 2012 Fall Risk Screening Fall Risk Screen ing [facility] Start: 1966 DTaP,Tdap and Td Vaccines (1 - Tdap) DTaP,Tdap and Td Vaccines (1 - Tdap) [facility] Start: 1959 Depression Screening Depression Scre ening [facility] DXA Skeletal system.axial Views for bone density [facility] MG Breast - bilatera l Screening [facility] Patient referral [facility] Work Phone: [place] Lower extremity v ein - right [facility] XR Tibia and Fibula - right 2 Views [facility] Immunizations Immunization Date Immunization Notes Care Provider Fa cility 04-10-2022 SARS-CoV-2 (COVID-19 ) [id number] Katie Lue [facility] 04-11-2021 SARS-CoV-2 (COVID-19 ) mRNA BNT-162b2 vax Katie Lue [facility] 02-15-2021 zoster vaccine recombinant Katie Lue [facility] 11-30-2020 zoster vaccine recombinant Katie Lue [facility] 08-30-2020 SARS-CoV-2 (COVID-19 ) mRNA BNT-162b2 vax Katie Lue [facility] Comment on above: Result Comment: 2022: [id number] 08-09-2020 SARS-CoV-2 (COVID-19 ) mRNA BNT-162b2 vax Katie Almonte [facility] Comment on above: Result Comment: 2022: [id number] 05-16-2020 influenza virus vaccine, split virus (incl. purified surface antigen) Hafsa Knowles Other [email or web address] Other 05-16-2020 influenza virus vaccine, unspecified formulation [facility] 04-26-2020 influenza virus vaccine, unspecified formulation Katie Almonte [facility] 12-16-2018 pneumococcal polysaccharide vaccine, 23 valent Hafsa Knowles Other [facility] 11-07-2017 pneumococcal conjuga te vaccine, 13 valent Mally Key Jr. [facility] 11-07-2017 pneumococcal Conjuga te, unspecified formulation; Translations: [Need for prophylactic vaccination against Streptococcus pneumoniae (pneumococcus)] Hafsa Knowels Other [facility]we[employer]r [facility] [employer] Other 10-13-2017 pneumococcal polysaccharide vaccine, 23 valent Katie Lue [facility] 04-14-2017 influenza virus vaccine, unspecified formulation Katie Lue [facility] Payers Date Payer Category Payer Commercial Indemnity [facility] [id number] 2012 Medicare 2012 Unknown 1957 Medicare [id number] 1959 Unknown [id number] 1945 Unknown [id number] 93 1947 Unknown [id number] 93 1947 Unknown [id number] 93 1947 Unknown [id number] 93 1947 Unknown [id number] 27 1947 Unknown [id number] [id number] 27 1947 Unknown [id number] [id number] 27 1947 Unknown [id number] 96 1947 Unknown [id number] 286 Medicare Medicare [id number] Social History Date Type Detail Facility Start: 12-05-2021 End: 07-18-2022 Tobacco smoking status Never smoked tobacco (finding) [facility] Start: 05-28-2024 End: 06-10-2024 Sex Assigned At Female [facility] Tobacco smoking status Never [facility] Start: 1945 Sex Assigned At Female F [facility] Start: 07-18-2022 Tobacco use and exposure Smokeless tobacco non-user [facility] Start: 05-28-2024 End: 06-10-2024 Alcoholic beverage intake Lifetime non-drinker (finding) [facility] Start: 05-28-2024 End: 06-10-2024 History of Social function [facility] Start: 07-18-2022 Alcohol Comment rare [facility] Start: 1945 Sex assigned at Not on file P [facility] Start: 05-31-2021 Sex Female (finding) [facility] Functional Status Date Assessment Result Facility 01-15-2024 Functional Status N/A [facility] 02-20-2023 Functional Status N/A [facility] 08-22-2022 Functional Status N/A [facility] Clinical Notes 12-05-2021 to 06-10-2024 Assessment [...] ultrasound compression stockings leg elevation and exercise. [facility] 06-10-2024 Evaluation + Plan note Associated Problem(s): Superficial phlebitis and thrombophlebitis of right lower extremity Warm compresses nonsteroidal anti-inflammatory drugs leg elevation and compression therapy. We will get venous reflux ultrasound and rule out DVT as well. [facility] 06-10-2024 Miscellaneous Notes Associated Problem(s): Varicose veins of bilateral lower extremities with pain Venous reflux ultrasound compression stockings leg elevation and exercise. Associated Problem(s): Superficial phlebitis and thrombophlebitis of right lower extremity Warm compresses nonsteroidal anti-inflammatory drugs leg elevation and compression therapy. We will get venous reflux ultrasound and rule out DVT as well. documented in this encounter [facility] 06-10-2024 History of Presen t illness [...] 06/14/2021 Performed by Vic Hitchcock DO at [facility] BREAST SURGERY bx, marker in place left [...] Zaida Child MD, TRIPP, RPVI, FSVS, FACS [facility] This note was created with the assistance of a speech recognition program. While intending to generate a timely document that accurately reflects the content of the visit, no guarantee can be provided that every grammatical or spelling mistake has been or will be identified or corrected. Thank you for your understanding. documented in this encounter [facility] 05-28-2024 Evaluation + Plan note Associated Problem(s): Varicose veins of bilateral lower extremities with pain Compression stockings leg elevation exercise. Venous reflux ultrasound. [facility] 05-28-2024 Miscellaneous Notes Associated Problem(s): Varicose veins of bilateral lower extremities with pain Compression stockings leg elevation exercise. Venous reflux ultrasound. Associated Problem(s): Superficial phlebitis and thrombophlebitis of right lower extremity Nonsteroidal anti-inflammatory drugs warm compresses leg elevation and compression therapy when possible documented in this encounter [facility] 05-28-2024 Evaluation + Plan note Associated Problem(s): Superficial phlebitis and thrombophlebitis of right lower extremity Nonsteroidal anti-inflammatory drugs warm compresses leg elevation and compression therapy when possible [facility] 05-28-2024 History of Presen t illness [...] given by office. Patient was given a [employer] coupon voucher to use, this is not [...] 06/14/2021 Performed by Vic Hitchcock DO at [facility] BREAST SURGERY bx, marker in place left [...] pain - [facility] [place] [place] Phlebitis and thrombophlebitis of unspecified site - [facility] [place] [place] Varicose veins of bilateral lower extremities with pain Zaida Child MD, TRIPP, RPVI, FSVS, FACS [facility] This note was created with the assistance of a speech recognition program. While intending to generate a timely document that accurately reflects the content of the visit, no guarantee can be provided that every grammatical or spelling mistake has been or will be identified or corrected. Thank you for your understanding. documented in this encounter [facility] 04-10-2024 Note Procedure: MRI of th [...] Signed, Electronically Signed in Other Vendor System) [facility] 04-10-2024 Note Procedure: MRI of th [...] Signed, Electronically Signed in Other Vendor System) [facility] 01-15-2024 Evaluation + Plan note Diagnostic Tests PendingUrine Culture 01/15/24 [facility] 01-15-2024 Hospital Discharg e instructions Patient [...] provider. Document Revised: 11/09/2021 Document Reviewed: 11/09/2021 [employer] Patient Education 2022 [employer]. Follow Up Care 02/20/2023 12:02:25 With:Gage JACOB, KEKE Carrera, URO Address: [address] [place] [phone] When: Unknown [facility]-15-2024 Note Patient Education Obstetrics and [...] provider. Document Revised: 11/09/2021 Document Reviewed: 11/09/2021 [employer] Patient Education ? 2022 [employer]. [facility] 07-30-2023 Evaluation note Encounter Date Diagnosis Assessment Notes Jul, Acute non-recurrent maxillary sinusitis (ICD-10 - J01.00) [email or web address] Other 08-09-2023 Hospital Discharge instructions Patient Education 02/20/2023 09:58:29 Urinary Tract Infection, Adult, Dylb-ld-Wsop Urinary Tract Infection, Adult A urinary tract [...] Follow these instructions at home: Medicines Take amhw-bjh-julolcw and prescription medicines only as told by [...] provider. Document Revised: 02/10/2021 Document Reviewed: 02/10/2021 [employer] Patient Education 2022 [employer]. Follow Up Care 08/22/2022 12:56:32 With:Gage JACOB, KEKE Carrera, URO Address: When:Within 1 Year(s) [facility] 02-08-2023 Hospital Discharge instructions Patient Education [...] 06/17/2013 Document Revised: 02/18/2019 Document Reviewed: 02/18/2019 [employer] Patient Education 2020 [employer]. Follow Up Care 06/13/2022 11:42:12 With:Gage JACOB, KEKE Carrera, URO Address: When: Unknown [facility] 05-24-2022 Hospital Discharge instructions Patient Education [...] provider gives to you. In general: Take hjkb-edd-mvbixvm and prescription medicines only as told by [...] 01/26/2015 Document Revised: 08/07/2018 Document Reviewed: 08/07/2018 [employer] Patient Education 2020 [employer]. Follow Up Care 06/07/2021 13:20:37 With:Shahid Ontiveros MD, Mally Mendiola, URO Address: [facility] [address], [place] [address]- When: Unknown [facility] evalqltcws + Plan note No data available for this section [facility] evaluation + Plan note Future Appointments Appointment Date:02/20/2023 10:45:00 AM Scheduled Provider:Katie Almonte MD Location:[facility] Appointment Type:URO Office Visit [facility] evaluation + Plan note Future Appointments Appointment Date:02/26/2024 10:45:00 AM Scheduled Provider:Katie Almonte MD Location:[facility] Appointment Type:URO Office Visit [facility] evaluation noteNo InformationNort [employer] Other evaluation note* Diagnosis Onset Date Resolution Status Menopausal and postmenopausal disorder acute Screening mammogram for breast cancer acute [facility] Work Phone: evaluation noteNo assessment information available [facility] Work Phone: evaluation note* Diagnosis Onset Date Resolution Status Preoperative examination acu te Right leg pain acute [facility] Work Phone: Evaluation note* Diagnosis Onset Date Resolution Status Preoperative examination acu te Right leg pain acute Phlebitis acute Right leg pain acute [facility] Work Phone: Evaluation note* Diagnosis Superficial phlebitis [...] ABOVE SURGERY Hospitalization History CHILD X'S 2 [email or web address] Other Hospital Discharge instructions No data available for this section [facility] instructions[facility] Orders* Referral to Vascular Surgery Time Frame: 05/19/24, Location: None [facility] Work Phone: InstructionsNot on filedocumented in this encounter [facility] filedocumented in this encounter [facility]Not on filedocumented in this encounter [facility] No data available for this section [facility] Summary Purpose Family History No Family [...] and content) DATE CREATED AUTHOR 08/02/2022 [facility] [place] [facility] DATE CREATED AUTHOR AUTHOR'S ORGANIZ ATION [facility]20[facility] DATE CREATED AUTHOR AUTHOR'S ORGANIZ ATION 01/19/2024 [facility] DATE CREATED AUTHOR AUTHOR'S ORGANIZ ATION 04/11/2024 [facility] DATE CREATED AUTHOR AUTHOR'S ORGANIZ ATION 06/13/2024 [facility] Patient Care team informatio n (unrecognized [...] May 19, 2024 End: May 19, 2024 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 [place] [address] [place] [address] PCP - General Family Medicine 06/01/21 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 Start Date End Date Hafsa Knowles MD [address] [place] [address] PCP - General Family Medicine 06/01/21 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 Start Date End Date Hafsa Knowles MD [address] [place] [address] PCP - General Family Medicine 06/01/21 REASON FOR VISIT (unrecogniz ed section and content) Reason Comments new patient - right leg pain after cellu litis Specialty Diagnoses / Procedures Referred By Mara gamez Referred To Contact Vascular Surgery Diagnoses Right leg pain Phlebitis and thrombophlebit[place] [address] [place] [phone] Phone: tel: fax: [facility] [address] [place] [phone] Phone: tel: fax: Referral ID Status Reason Start Date Expiration Date Visits Requested Visits Authorized [id number] Pending Review Specialty Services Required 05/20/2024 05/20/2025 [...] BASED ON THE PRIMARY CLINICAL RECORDS. [facility]. provides no warranty or guarantee of the accuracy or completeness of information in this document.
== END 2024-07-06 13:31 | disposition home or self-care (01) ==
LOC: VC 10:53
PROVIDERS: PCP Radiology Diagnostic Radiology; Visit Provider Radiology Diagnostic Radiology
DX: I80.01 Phlebitis and thrombophlebitis of superficial vessels of right lower extremity (principal)
CPT/HCPCS: 93971; G0463

== ENCOUNTER 2024-07-08 08:23 | Emergency (ER) | payer MEDICARE, OTHER, SELFPAY ==
[2024-07-08] VITALS (8 sets, daily range): BP systolic 180–211; BP diastolic 80–107; PULSE 61–70; TEMP 36.6; O2SAT 97–98; BMI 32.9
--- OUTSIDE RECORDS SUMMARY | 2024-07-08 08:29 | XMS_ITS | CCD ---
Author Organization [facility] Care Team Providers Care Frame Stripper Name Role Phone HAFSA KNOWLES Primary Care [...] Care Unavailable SAMUEL, DR ANTWON Sharma Consult[employer] UnavailHfasa Hernandez Katie Almonte Attending Unavailable Katie Almonte [...] Allergy 12-26-19 16 Nausea [facility] (1 source) Codeine Drug Allergy [facility] Repository (2 sources) Acetaminophen / HYDROcodone Drug Allergy Unknown [facility] Other (2 sources) Codeine Drug Allergy Unknown [facility] Other (2 sources) patient allergy list reviewed by nurse or physicia Propensity to adverse reactions 04-29-20 15 Comment:Done [facility] Other (2 sources) Allergies Reconciled Propensity to adverse reactions Unknown [facility] Other (4 sources) Acetaminophen Drug Allergy 01-24-20 [facility] (4 sources) HYDROcodone Drug Allergy 01-24-20 [facility] Medications Current Medications Medication Drug Class(es) [...] mouth. Active take 1 capsule by mo [facility] once daily Biotin 5000 5 MG [...] 2 times per week after for maintenance., [facility], 168, cm, 01/15/24 10:54:00 EDT, Height/Length Dosing, 96, kg, 01/15/24 10:54:00 EDT, Weight Dosing Start Date: 01/15/24 Status: Ordered Start: 08-22-2022 Estrace 0.1 mg /g Cream See Instructions, 42.5 gm, Refill(s) 6, Apply pea-sized amound around the opening of the urethra 3 times per week for 1 month then 2 times per week after for maintenance., [employer] #72, 168, cm, 08/22/22 11:52:00 EST, [...] given by office. Patient was given a [employer] coupon voucher to use, this is not to be ran through patients insurance. 24 tablet 07/18/2022 Active sulfamethoxazole 800 mg / trimethoprim 160 mg oral tablet (3 sources) Dihydrofolate Reductase Inhibitor Antibacterial, Sulfonamide Antimicrobial Start: 05-08-2024 take 1 tablet by mouth twice daily Sulfamethoxazole-Trimethoprim Active 1 TAB PO Twice daily May 07, 2024 11:00pm Start: 06-25-2023 take 1 tablet by [facility] every twelve hours Bactrim DS 800-160 MG 1 tablet Orally Twice a day for 10 day(s) Jun, Active Vitamin D-3 1000 UNIT (2 sources) take 1 capsule by [facility] once daily Vitamin D-3 1000 UNIT [...] 2:53pm Start: 12-05-2021 take 1 capsule by [facility] every twelve hours Keflex 500 mg Cap 500 mg = 1 cap(s), Oral, q12hr, # 6 cap(s), Refills(s) 0, Pharmacy: [facility], 168, cm, 12/05/21 10:16:00 EDT, Height/Length Dosing, 97.5, kg, 12/05/21 10:16:00 EDT, Weight Dosing Start Date: 12/05/21 Status: Ordered omeprazole 40 mg delayed release oral capsule (6 sources) Proton Pump Inhibitor Start: 01-21-2024 End: 01-24-2024 take 40 mg by mouth once daily Omeprazole Discontinued 40 MG PO Daily January 20, 2024 11:00pm January 24, 2024 10:02am Start: 09-05-2020 take 1 capsule by [facility] once daily Omeprazole 40 MG Omeprazole [...] aPTT Coag (PPP) [Time] 30.5 s 22.3-36.2 [facility] Basophils Auto (Bld) [#/Vol] on 05-01-2024 Basophils (Bld) [#/Vol] 0.0 10 3/uL 0.0-0.1 [facility] Basophils/100 WBC Auto (Bld) on 05-01-2024 Basophils/100 WBC (Bld) 0.7 % 0.2-2.0 [facility] Eosinophils/100 WBC Auto (Bl d)on 05-01-2024 Eosinophils/100 WBC (Bld) 3.8 % 0.9-7.0 [facility] Erythrocyte distribution wid th Auto (RBC) [Ratio]on 05-01-2024 Erythrocyte distribution width (RBC) [Ratio] 14.4 % 11.0-15.0 [facility] Estimated glomerular filtrat ion rate (GFR) non- Americanon 05-01-2024 GFR/1.73 sq M.predicted among non-blacks MDRD (S/P/Bld) [Vol rate/Area] 51 mL/min/{1.73_m2} Low >=60 mL/min/1.73m 2 [facility] Globulin Calc (S) [Mass/Vol] on 05-01-2024 Globulin (S) [Mass/Vol] 4.3 g/dL F [facility] Hematocrit Auto (Bld) [Volum e fraction]on 05-01-2024 Hematocrit (Bld) [Volume fraction] 39.1 % 36.0-48.0 [facility] Hemoglobin [Mass/volume] in Bloodon 05-01-2024 Hemoglobin (Bld) [Mass/Vol] 13.1 g/dL 12.0-16.0 [facility] INR in Platelet poor plasma by Coagulation assayon 05-01-2024 INR Coag (PPP) [Relative time] 1.07 {INR} [facility] Comment on above: DESIRED INR:2.0-3.0 CONDITIONS NOT LISTED BELOW2.5-3.5 FOR PROSTHETIC HEART VALVE REPLACEMENT2.5-3.5 RECURRENT THROMBOSIS Laboratory - Chemistry and C hemistry - challengeon 05-01-2024 Bilirubin Ql (U) Negative NEGATIVE [facility] Glucose (U) [Mass/Vol] Negative NEGATIVE Fi [facility] Ketones Ql (U) Negative NEGATIVE [facility] pH (U) 6.0 [pH] 5.0-9.0 [facility] Specific gravity (U) [Rel density] 1.020 1.005-1.025 [facility] Urobilinogen Qn (U) 0.2 {Diana'U}/dL 0.2-1.0 [facility] Albumin [Mass/Vol] 2.9 g/dL Low 3.4-5.0 [facility] ALP [Catalytic activity/Vol] 196 U/L High 46-116 [facility] ALT [Catalytic activity/Vol] 44 U/L 14-59 [facility] AST [Catalytic activity/Vol] 51 U/L High 15-37 [facility] Bilirubin [Mass/Vol] 0.7 mg/dL 0.2-1.0 [facility] Bilirubin.direct [Mass/Vol] 0.2 mg/dL 0.0-0.2 [facility] Calcium [Mass/Vol] 9.1 mg/dL 8.5-10.1 [facility] Chloride [Moles/Vol] 107 mmol/L 98-107 [facility] CO2 [Moles/Vol] 25.8 mmol/L 21.0-32.0 [facility] Creatinine [Mass/Vol] 1.05 mg/dL High 0.55-1.02 [facility] GFR/1.73 sq M.predicted MDRD (S/P/Bld) [Vol rate/Area] mL/min/{1.73_m2} >=60 mL/min/1.73m 2 [facility] Glucose [Mass/Vol] 84 mg/dL 74-106 [facility] Potassium [Moles/Vol] 3.7 mmol/L 3.5-5.1 [facility] Protein [Mass/Vol] 7.2 g/dL 6.4-8.2 [facility] Sodium [Moles/Vol] 143 mmol/L 136-145 [facility] Urea nitrogen [Mass/Vol] 20.0 mg/dL High 7.0-18.0 [facility] Urea nitrogen/Creatinine [Mass ratio] 19.0 mg/mg [facility] Laboratory - Hematology and Cell countson 05-01-2024 Immature granulocytes/100 WBC (Bld) 0.2 % 0.0-0.5 [facility] Laboratory - Specimen inform ationon 05-01-2024 Appearance (U) CLEAR CLEAR [facility] Color (U) YELLOW YELLOW [facility] Laboratory - Urinalysison Leukocyte esterase Test strip Ql (U) Negative NEGATIVE [facility] Nitrite Ql (U) Negative NEGATIVE [facility] Protein Ql (U) Negative NEG/TRACE [facility] Leukocytes [#/volume] correc reji for nucleated erythrocytes in Blood by Automated counon 05-01-2024 WBC corrected for nucl RBC Auto (Bld) [#/Vol] 4.5 10 3/uL 4.0-11.0 [facility] Lymphocytes Auto (Bld) [#/Vo l]on 05-01-2024 Lymphocytes (Bld) [#/Vol] 2.0 10 3/uL 1.2-3.8 [facility] Lymphocytes/100 WBC Auto (Bl d)on 05-01-2024 Lymphocytes/100 WBC (Bld) 43.8 % 20.5-60.0 [facility] MCH Auto (RBC) [Entitic mass ]on 05-01-2024 MCH (RBC) [Entitic mass] 34.5 pg High 26.7-34.0 [facility] MCHC Auto (RBC) [Mass/Vol]on 05-01-2024 MCHC (RBC) [Mass/Vol] 33.5 g/dL 29.9-35.2 [facility] MCV Auto (RBC) [Entitic vol] on 05-01-2024 MCV (RBC) [Entitic vol] 102.9 fL High 81.0-99.0 F [facility] Monocytes Auto (Bld) [#/Vol] on 05-01-2024 Monocytes (Bld) [#/Vol] 0.6 10 3/uL 0.3-0.8 [facility] Monocytes/100 WBC Auto (Bld) on 05-01-2024 Monocytes/100 WBC (Bld) 13.8 % High 1.7-12.0 F [facility] Neutrophils Auto (Bld) [#/Vo l]on 05-01-2024 Neutrophils (Bld) [#/Vol] 1.7 10 3/uL 1.4-6.5 [facility] Neutrophils/100 WBC Auto (Bl d)on 05-01-2024 Neutrophils/100 WBC (Bld) 37.7 % Low 43.0-75.0 [facility] No Panel Informationon 05-01 Urine Microscopic Review NO [facility] Urine Occult Blood Negative NEGATIVE [facility] Eosinophils # (Auto) 0.2 10 3/uL 0.0-0.7 [facility] Immature Granulocyte # (Auto) 0.01 10 3/uL 0.00-0.03 [facility] No Panel InformationOrdered By: Johny Perdomo on 05-01-2024 MRSA Screening Culture Fi [facility] Platelet mean volume Auto (B ld) [Entitic vol]on 05-01-2024 Platelet mean volume (Bld) [Entitic vol] 12.6 fL 9.5-13.5 [facility] Platelets Auto (Bld) [#/Vol] on 05-01-2024 Platelets (Bld) [#/Vol] 266 10 3/uL 150-450 [facility] Prothrombin time (PT)on 04-14 PT Coag (PPP) [Time] 11.3 s 9.0-11.6 [facility] RBC Auto (Bld) [#/Vol]on RBC (Bld) [#/Vol] 3.80 10 6/uL Low 4.20-5.40 [facility] Serum or plasma albumin/glob ulin mass ratioon 05-01-2024 Albumin/Globulin [Mass ratio] 0.7 {ratio} [facility] Serum or plasma anion gap de terminationon 05-01-2024 Anion gap [Moles/Vol] 13.9 mmol/L [facility] C Urineon 01-19-2024 Bacteria identified Cx [...] Locations R1: This test was performed at: [facility], [address] [place] [address], [facility]- , , [facility] Comment on above: Performed By: #### [id number] #### [facility] [address] [place] [address] Ambulatory Visit Summaryon 0 01-15-2024 Ambulatory Visit [...] Carrera, URO When: Where: [address] [place] [address] [phone] Medications What How Much When Instructions Unchanged estradiol topical (Estrace 0.1 mg/ g Cream) See instructions Apply pea-sized amound around the opening of the urethra 3 times per week for 1 month then 2 times per week after for maintenance. Pickup at [facility] Unchanged biotin (biotin 5000 mcg oral capsule) Contact prescribing physician if questions or concerns Unchanged cholecalciferol (Vitamin D3 5000 intl units oral capsule) 1 Capsules By Mouth Every day with food Contact prescribing physician if questions or concerns Unchanged fexofenadine (Mary) By Mouth Contact prescribing physician if questions or concerns Pharmacy Information [facility]: [address] [place], [place] [id number] [phone] Allergies codeine (nausea) Problems Ongoing - Any [...] intended to (more content not included)... Normal [facility] Urology Office/Clinic Noteon 01-15-2024 Urology Office/Clinic [...] Information Gage JACOB, Katie Arteaga, URL, URO [address], [place] [address]- [phone] Additional Instructions: pt's choice on when to [...] Hyperparathyroidism Osteopeni (more content not included)... Normal [facility] Comment on above: Result Comment: Elec tronically Signed By: Katie Almonte MD\.br\Date and Time Signed: 01/15/24 23:28 EDT\.br\Electronically Co-Signed By: Yuliana Olson\.br\Date and Time Co-Signed: 01/15/24 11:27 EDT [place] 02-21-2023 Screens [id number] Normal [facility] Patient Educationon 02-21-20 Patient Education Obstetrics [...] these instructions at home: Medicines ? Take [id number] and prescription medicines only as told by [...] provider. Document Revised: 02/10/2021 Document Reviewed: 02/10/2021 [employer] Patient Education ? 2022 [employer] [facility] Urology Office/Clinic Noteon 02-20-2023 Urology Office/Clinic [...] medical exam (more content not included)... Normal [facility] Comment on above: Result Comment: Elec tronically Signed By: Katie Almonte MD\.br\Date and Time Signed: 02/20/23 12:03 EDT\.br\Electronically Co-Signed By: Sepideh Perez\.br\Date and Time Co-Signed: 02/20/23 11:49 EDT Covid-19 PCR (CVDTB)on 07-15 SARS-CoV-2 (COVID-19) RNA AZUL+probe Ql (Unsp spec) Not detected Normal NOT DETECTED [facility] Comment on above: Result Comment: This test is not yet approved or cleared by the [place] FDA. When there are no FDA-approved or cleared tests available, and other criteria are met, FDA can make tests available under an emergency access mechanism called an Emergency Use Authorization (EUA). The EUA for this test is supported by the [place] of Health and Human Service's (HHS's) declaration [...] SARS-CoV-2. Performed By: #### C VDTBH #### [facility] [address] [place] [address] Dr. Manjula Arzate CREATININEon 06-13-2022 Creatinine [Mass/Vol] 0.98 mg/dL Normal 0.55-1.02 [facility] Comment on above: Performed By: #### C JESUS #### [facility] [address] [place] [address] Dr. Manjula Arzate EGFR-AF [place]IZ[place] >60 Normal >=60 [facility] Comment on above: Performed By: #### C JESUS #### [facility] [address] [place] [address] Dr. Manjula Arzate EGFR-NON AF [place]IZEN [place] 55 mL/min/1.73m2 Critically low >=60 [facility] Comment on above: Performed By: #### C JESUS #### [facility] [address] [place] [address] ABD/PELV W CONon [...] by: DARIO BESS Date: 2022-06-13 17:40 Normal [facility] CT ABD/PELVIS WO CONon 11-27 CT ABD/PELVIS [...] by: DARIO BESS Date: 2021-11-27 10:41 Normal [facility] Vital Signs Date Time Vital Sign Value Performing Clinician Facility 06-10-2024 15:24-0500 Body height 167.6 cm Zaida Child MD Work Phone: [facility] 06-10-2024 15:24-0500 Body mass index (BMI) [Ratio] 32.28 kg/m2 Zaida Child MD Work Phone: [facility] 06-10-2024 15:24-0500 Body weight 90.72 kg Zaida Child MD Work Phone: [facility] 06-10-2024 15:24-0500 Diastolic blood pressure 84 mm[Hg] Zaida Child MD Work Phone: [facility] 06-10-2024 15:24-0500 Systolic blood pressure 132 mm[Hg] Zaida Child MD Work Phone: [facility] 05-28-2024 11:08-0500 Body height 167.6 cm Zaida Child MD Work Phone: [facility] 05-28-2024 11:08-0500 Body mass index (BMI) [Ratio] 33.09 kg/m2 Zaida Child MD Work Phone: [facility] 05-28-2024 11:08-0500 Body temperature 97.39 [degF] Zaida Child MD Work Phone: [facility] 05-28-2024 11:08-0500 Body weight 92.99 kg Zaida Child MD Work Phone: [facility] 05-28-2024 11:08-0500 Diastolic blood pressure 84 mm[Hg] Zaida Child MD Work Phone: [facility] 05-28-2024 11:08-0500 Heart rate 72 /min Zaida Child MD Work Phone: [facility] 05-28-2024 11:08-0500 SaO2% (BldA) [Mass fraction] 97 % Zaida Child MD Work Phone: [facility] 05-28-2024 11:08-0500 Systolic blood pressure 146 mm[Hg] Zaida Child MD Work Phone: [facility] 05-19-2024 11:18-0500 Body height 165.1 cm [facility] 05-19-2024 11:18-0500 Body mass index (BMI) [Ratio] 33.1 kg/m2 [facility] 05-19-2024 11:18-0500 Body weight 90.26 kg [facility] 05-19-2024 11:18-0500 Diastolic blood pressure 76 mm[Hg] [facility] 05-19-2024 11:18-0500 Heart rate 91 /min [facility] 05-19-2024 11:18-0500 Systolic blood pressure 114 mm[Hg] [facility] 05-07-2024 14:39-0400 Body height 165.1 cm [facility] 05-07-2024 14:39-0400 Body mass index (BMI) [Ratio] 33.7 kg/m2 [facility] 05-07-2024 14:39-0400 Body weight 92.07 kg [facility] 05-07-2024 14:39-0400 Diastolic blood pressure 79 mm[Hg] [facility] 05-07-2024 14:39-0400 Heart rate 76 /min [facility] 05-07-2024 14:39-0400 Systolic blood pressure 116 mm[Hg] [facility] 04-29-2024 08:21-0400 Body height 165.1 cm [facility] 04-29-2024 08:21-0400 Body mass index (BMI) [Ratio] 33.8 kg/m2 [facility] 04-29-2024 08:21-0400 Body weight 92.3 kg [facility] 04-29-2024 08:21-0400 Diastolic blood pressure 82 mm[Hg] [facility] 04-29-2024 08:21-0400 Heart rate 74 /min [facility] 04-29-2024 08:21-0400 Respiratory rate 16 /min [facility] 04-29-2024 08:21-0400 SaO2% (BldA) [Mass fraction] 96 % [facility] 04-29-2024 08:21-0400 Systolic blood pressure 120 mm[Hg] [facility] 01-24-2024 10:54-0400 Body height 165.1 cm [facility] 01-24-2024 10:54-0400 Body mass index (BMI) [Ratio] 35.6 kg/m2 [facility] 01-24-2024 10:54-0400 Body weight 97.06 kg [facility] 01-24-2024 10:54-0400 Diastolic blood pressure 81 mm[Hg] [facility] 01-24-2024 10:54-0400 Heart rate 71 /min [facility] 01-24-2024 10:54-0400 Systolic blood pressure 121 mm[Hg] [facility] 01-15-2024 10:37-0400 Blood Pressure Location Katie Lue [facility] 01-15-2024 10:37-0400 Body temperature 97.88 [degF] Katie Lue [facility] 01-15-2024 10:37-0400 Diastolic blood pressure 78 mm[Hg] Katie Lue [facility] 01-15-2024 10:37-0400 Heart rate 71 /min Katie Lue [facility] 01-15-2024 10:37-0400 Systolic blood pressure 132 mm[Hg] Katie Lue [facility] 02-20-2023 10:53-0400 Blood Pressure Location Katie Lue [facility] 02-20-2023 10:53-0400 Diastolic blood pressure 76 mm[Hg] Katie Lue [facility] 02-20-2023 10:53-0400 Heart rate 68 /min Katie Lue [facility] 02-20-2023 10:53-0400 Respiratory rate 16 /min Katie Lue [facility] 02-20-2023 10:53-0400 Systolic blood pressure 130 mm[Hg] Katie Lue [facility] 08-22-2022 11:50-0500 Blood Pressure Location Katie Lue [facility] 08-22-2022 11:50-0500 Diastolic blood pressure 78 mm[Hg] Katie Lue [facility] 08-22-2022 11:50-0500 Heart rate 68 /min Katie Lue [facility] 08-22-2022 11:50-0500 Respiratory rate 16 /min Katie Lue [facility] 08-22-2022 11:50-0500 Systolic blood pressure 132 mm[Hg] Katie Lue [facility] 12-05-2021 10:33-0400 Diastolic blood pressure 81 mm[Hg] Mally Key Jr. [facility] 12-05-2021 10:33-0400 Mean blood pressure 101 mm[Hg] Mally Key Jr. [facility] 12-05-2021 10:33-0400 Systolic blood pressure 142 mm[Hg] Mally Key Jr. [facility] 12-05-2021 10:12-0400 Blood Pressure Location Mally Key Jr. [facility] 12-05-2021 10:12-0400 Diastolic blood pressure 97 mm[Hg] Mally Key Jr. [facility] 12-05-2021 10:12-0400 Heart rate 87 /min Mally Key Jr. [facility] 12-05-2021 10:12-0400 Respiratory rate 16 /min Mally Key Jr. [facility] 12-05-2021 10:12-0400 Systolic blood pressure 163 mm[Hg] Mally Key Jr. [facility] Encounters Encounter Date Encounter Type Care Provider Facility Start: 06-10-2024 End: 06-10-2024 Office outpatient visit 15 minutes Zaida Child MD Work Phone: [facility] Comment on above: Superficial phlebiti s and thrombophlebitis of right lower extremity (Primary Dx); Varicose veins of bilateral lower extremities with pain Start: 06-10-2024 End: 06-10-2024 [facility] Start: 06-03-2024 End: 06-04-2024 Orders Only Rosanne Merrill LPN [facility] Start: 05-28-2024 End: 05-28-2024 Office outpatient new 30 minutes Zaida Child MD Work Phone: [facility] Comment on above: Superficial phlebiti s and thrombophlebitis of right lower extremity (Primary Dx); Right leg pain; Phlebitis and thrombophlebitis of unspecified site; Varicose veins of bilateral lower extremities with pain Start: 05-19-2024 End: 05-19-2024 ambulatory [facility] Work Phone: Start: 05-19-2024 End: 05-19-2024 Patient encounter procedure [facility] Work Phone: Start: 05-07-2024 Non-patient / Non-visit [facility] Work Phone: Start: 05-07-2024 End: 05-07-2024 ambulatory [facility] Work Phone: Start: 05-07-2024 End: 05-07-2024 Patient encounter procedure [facility] Work Phone: Start: 2024 Non-patient / Non-visit [facility] Work Phone: Start: 05-01-[address] [facility] Start: 05-01-2024 Non-patient / Non-visit [facility] Work Phone: Start: 04-29-2024 End: 04-29-2024 ambulatory [facility] Work Phone: Start: 04-29-2024 End: 04-29-2024 [facility] encounter [facility] Work Phone: Start: 04-10-2024 End: 04-10-2024 ambulatory Johny Ray Perdomo DO Facility:[facility] Start: 03-20-2024 ambulatory Johnytae willis DO Facility:[facility] Start: 02-05-[address] [facility] Start: 01-24-2024 End: 01-24-2024 ambulatory [facility] Work Phone: Start: 01-24-2024 End: 01-24-2024 Patient encounter procedure [facility] Work Phone: Start: 01-15-2024 End: 01-15-2024 ambulatory Katie Josée [facility] Start: 01-15-2024 End: 01-15-2024 Lab Drop off Katie Josée [facility] Start: 01-15-2024 End: 01-15-2024 ambulatory Katie M. Lue Facility:[facility] Start: 01-15-2024 End: 01-15-2024 Patient encounter procedure Katie MPadilla Josée [facility] Start: 08-01-2023 End: 08-01-2023 ambulatory Hafsa Knowles Other [facility] Other Start: 08-01-2023 Telephone encounter Hafsa Benson [facility] Start: 07-30-2023 End: 07-30-2023 ambulatory Hafsa Benson Other [facility] Other Start: 07-30-2023 Telephone encounter Hafsa Knowles [facility] Start: 02-20-2023 End: 02-20-2023 ambulatory Katie Almonte Facility:[facility] Start: 02-20-2023 End: 02-20-2023 Patient encounter procedure Katie Almonte [facility] Start: 08-22-2022 End: 08-22-2022 Patient encounter procedure Katie Almonte [facility] Start: 08-01-2022 End: 08-01-[address] ANTWON BAKER Facility:[facility] Start: 07-30-2022 End: 07-31-[address] ANTWON BAKER Facility:[facility] Start: 07-12-2022 Adult health examination Vanessa Knowles Other [facility] Other Start: 06-13-2022 End: 06-14-[address] HAFSA KNOWLES Facility:[facility] Start: 12-05-2021 End: 12-05-2021 Patient encounter procedure Mally Key Jr. [facility] Start: 11-27-2021 End: 11-28-[address] MALLY [...] Author Start: 06-10-2025 Tobacco Screening Tobacco Screening [facility] Start: 05-28-2025 Tobacco Screening Tobacco Screening [facility] Start: 06-25-2024 End: 06-25-2024 Patient encounter procedure 06/25/2024 9:20 AM EST Office Visit [facility] [address] [place] [phone] Zaida Child MD [address], [address] [address] [facility] Start: 06-18-2024 End: 06-18-2024 Patient encounter procedure 06/18/2024 10:20 AM EST Office Visit [facility] [facility] [address] [place] [phone] Zaida Child MD [address] [address] [facility] Start: 05-19-2024 Patient referral [facility] Work Phone: Start: 03-15-2024 COVID-19 Vaccine ( season) COVID-19 Vaccine ( season) [facility] Start: 07-20-2023 Tobacco Screening Tobacco Screening [facility] Start: 2012 Fall Risk Screening Fall Risk Screen ing [facility] Start: 1966 DTaP,Tdap and Td Vaccines (1 - Tdap) DTaP,Tdap and Td Vaccines (1 - Tdap) [facility] Start: 1959 Depression Screening Depression Scre ening [facility] DXA Skeletal system.axial Views for bone density [facility] MG Breast - bilatera l Screening [facility] Patient referral [facility] Work Phone: US Lower extremity v ein - right [facility] XR Tibia and Fibula - right [address] [facility] Immunizations Immunization Date Immunization Notes Care Provider Fa cility 04-10-2022 SARS-CoV-2 (COVID-19 ) [id number] Katie Lue [facility] 04-11-2021 SARS-CoV-2 (COVID-19 ) mRNA BNT-162b2 vax Katie Lue [facility] 02-15-2021 zoster vaccine recombinant Katie Lue [facility] 11-30-2020 zoster vaccine recombinant Katie Lue [facility] 08-30-2020 SARS-CoV-2 (COVID-19 ) mRNA BNT-162b2 vax Katie Lue [facility] Comment on above: Result Comment: 2022: [id number] 08-09-2020 SARS-CoV-2 (COVID-19 ) mRNA BNT-162b2 vax Katie Almonte [facility] Comment on above: Result Comment: 2022: [id number] 05-16-2020 influenza virus vaccine, split virus (incl. purified surface antigen) Hafsa Knowles Other [employer] Other 05-16-2020 influenza virus vaccine, unspecified formulation [facility] 04-26-2020 influenza virus vaccine, unspecified formulation Katie Almonte [facility] 12-16-2018 pneumococcal polysaccharide vaccine, 23 valent Hafsa Knowles Other [facility] 11-07-2017 pneumococcal conjuga te vaccine, 13 valent Mally Key Jr. [facility] 11-07-2017 pneumococcal Conjuga te, unspecified formulation; Translations: [Need for prophylactic vaccination against Streptococcus pneumoniae (pneumococcus)] Hafsa Knowles Other [facility] [employer] Other 10-13-2017 pneumococcal polysaccharide vaccine, 23 valent Katie Lue [facility] 04-14-2017 influenza virus vaccine, unspecified formulation Katie Lue [facility] Payers Date Payer Category Payer Commercial Indemnity [facility] [id number] 2012 Medicare 2012 Unknown 1959 Medicare [id number] 1959 Unknown [id number] 1945 Unknown [id number] 93 1947 Unknown [id number] 93 1947 Unknown [id number] 93 1947 Unknown [id number] 93 1947 Unknown [id number] 27 1945 Unknown [id number] 27 1947 Unknown [id number] 27 1945 Unknown [id number] 96 1945 Unknown [id number] 286 Medicare Medicare [id number] Social History Date Type Detail Facility Start: 12-05-2021 End: 07-18-2022 Tobacco smoking status Never smoked tobacco (finding) [facility] Start: 05-28-2024 End: 06-10-2024 Sex Assigned At Female [facility] Tobacco smoking status Never [facility] Start: 1945 Sex Assigned At Female F [facility] Start: 07-18-2022 Tobacco use and exposure Smokeless tobacco non-user [facility] [employer] [facility] Start: 05-28-2024 End: 06-10-2024 Alcoholic beverage intake Lifetime non-drinker (finding) [facility] Start: 05-28-2024 End: 06-10-2024 History of Social function [facility] [employer] [facility] Start: 07-18-2022 Alcohol Comment rare [facility] [email or web address] [facility] Start: 1945 Sex assigned at Not on file [facility] Start: 05-31-2021 Sex Female (finding) [facility] [employer] [facility] Functional Status Date Assessment Result Facility 01-15-2024 Functional Status N/A [facility] 02-20-2023 Functional Status N/A [facility] 08-22-2022 Functional Status N/A [facility] Clinical Notes 12-05-2021 to 06-10-2024 Assessment & [...] ultrasound compression stockings leg elevation and exercise. [facility] [employer] [facility] 06-10-2024 Evaluation + Plan note Associated Problem(s): Superficial phlebitis and thrombophlebitis of right lower extremity Warm compresses nonsteroidal anti-inflammatory drugs leg elevation and compression therapy. We will get venous reflux ultrasound and rule out DVT as well. [facility] 06-10-2024 Miscellaneous Notes Associated Problem(s): Varicose veins of bilateral lower extremities with pain Venous reflux ultrasound compression stockings leg elevation and exercise. Associated Problem(s): Superficial phlebitis and thrombophlebitis of right lower extremity Warm compresses nonsteroidal anti-inflammatory drugs leg elevation and compression therapy. We will get venous reflux ultrasound and rule out DVT as well. documented in this encounter [facility] 06-10-2024 History of Presen t illness [...] 06/14/2021 Performed by Vic Hitchcock DO at [facility] BREAST SURGERY bx, marker in place [...] Zaida Child MD, TRIPP, RPVI, FSVS, FACS [facility] This note was created with the assistance of a speech recognition program. While intending to generate a timely document that accurately reflects the content of the visit, no guarantee can be provided that every grammatical or spelling mistake has been or will be identified or corrected. Thank you for your understanding. documented in this encounter [facility] 05-28-2024 Evaluation + Plan note Associated Problem(s): Varicose veins of bilateral lower extremities with pain Compression stockings leg elevation exercise. Venous reflux ultrasound. [facility] 05-28-2024 Miscellaneous Notes Associated Problem(s): Varicose veins of bilateral lower extremities with pain Compression stockings leg elevation exercise. Venous reflux ultrasound. Associated Problem(s): Superficial phlebitis and thrombophlebitis of right lower extremity Nonsteroidal anti-inflammatory drugs warm compresses leg elevation and compression therapy when possible documented in this encounter [facility] 05-28-2024 Evaluation + Plan note Associated Problem(s): Superficial phlebitis and thrombophlebitis of right lower extremity Nonsteroidal anti-inflammatory drugs warm compresses leg elevation and compression therapy when possible [facility] 05-28-2024 History of Presen t illness [...] given by office. Patient was given a [employer] coupon voucher to use, this is not [...] 06/14/2021 Performed by Vic Hitchcock DO at [facility] BREAST SURGERY bx, marker in place [...] pain - [facility] [place] [place] Phlebitis and thrombophlebitis of unspecified site - [facility] [place] Varicose veins of bilateral lower extremities with pain Zaida Child MD, TRIPP, RPVI, FSVS, FACS [facility] This note was created with the assistance of a speech recognition program. While intending to generate a timely document that accurately reflects the content of the visit, no guarantee can be provided that every grammatical or spelling mistake has been or will be identified or corrected. Thank you for your understanding. documented in this encounter [facility] 04-10-2024 Note Procedure: MRI of th [...] Signed, Electronically Signed in Other Vendor System) [facility] 04-10-2024 Note Procedure: MRI of [...] Signed, Electronically Signed in Other Vendor System) [facility] 01-15-2024 Evaluation + Plan note Diagnostic Tests PendingUrine Culture 01/15/24 [facility] 01-15-2024 Hospital Discharg e instructions Patient [...] provider. Document Revised: 11/09/2021 Document Reviewed: 11/09/2021 [employer] Patient Education 2022 [employer]. Follow Up Care 02/20/2023 12:02:25 With:Gage JACOB, KEKE Carrera, URO Address: [address] [place] [phone] When: Unknown [facility] Note Patient Education Obstetrics and [...] provider. Document Revised: 11/09/2021 Document Reviewed: 11/09/2021 [employer] Patient Education ? 2022 [employer]. [facility] 07-30-2023 Evaluation note Encounter Date Diagnosis Assessment Notes Jul, Acute non-recurrent maxillary sinusitis (ICD-10 - J01.00) [facility] [employer] Other 08-09-2023 Hospital Discharge instructions Patient Education 02/20/2023 09:58:29 Urinary Tract Infection, Adult, Nvko-zs-Zolp Urinary Tract Infection, Adult A urinary tract [...] Follow these instructions at home: Medicines Take lisr-prd-mtevmov and prescription medicines only as told by [...] provider. Document Revised: 02/10/2021 Document Reviewed: 02/10/2021 [employer] Patient Education 2022 [employer]. Follow Up Care 08/22/2022 12:56:32 With:Gage JACOB, KEKE Carrera, URO Address: When:Within 1 Year(s) [facility] 02-08-2023 Hospital Discharge instructions Patient Education 08/22/2022 [...] 06/17/2013 Document Revised: 02/18/2019 Document Reviewed: 02/18/2019 [employer] Patient Education 2020 [employer]. Follow Up Care 06/13/2022 11:42:12 With:Gage JACOB, KEKE Carrera, URO Address: When: Unknown [facility] 05-24-2022 Hospital Discharge instructions Patient Education 12/05/2021 [...] provider gives to you. In general: Take eurx-daz-ejrtzui and prescription medicines only as told by [...] 01/26/2015 Document Revised: 08/07/2018 Document Reviewed: 08/07/2018 [employer] Patient Education 2020 [employer]. Follow Up Care 06/07/2021 13:20:37 With:Shahid Ontiveros MD, Mally Mendiola, URO Address: [facility] [address], [place] [address]- When: Unknown [facility] evalaosetz + Plan note No data available for this section [facility] evaluation + Plan note Future Appointments Appointment Date:02/20/2023 10:45:00 AM Scheduled Provider:Katie Almonte MD Location:[facility] Appointment Type:URO Office Visit [facility] evaluation + Plan note Future Appointments Appointment Date:02/26/2024 10:45:00 AM Scheduled Provider:Katie Almonte MD Location:[facility] Appointment Type:URO Office Visit [facility] evaluation noteNo InformationNort [employer] Other evaluation note* Diagnosis Onset Date Resolution Status Menopausal and postmenopausal disorder acute Screening mammogram for breast cancer acute [facility] Work Phone: evaluation noteNo assessment information available [facility] Work Phone: evaluation note* Diagnosis Onset Date Resolution Status Preoperative examination acu te Right leg pain acute [facility] Work Phone: Evaluation note* Diagnosis Onset Date Resolution Status Preoperative examination acu te Right leg pain acute Phlebitis acute Right leg pain acute [facility] Work Phone: Evaluation note* Diagnosis Superficial [...] ABOVE SURGERY Hospitalization History [facility] X'[facility] 2 [employer] Other Hospital Discharge instructions No data available [facility] instructions[facility] Orders* Referral to Vascular Surgery Time Frame: 05/19/24, Location: None [facility] Work Phone: InstructionsNot on filedocumented in this encounter [facility] filedocumented in this encounter [facility]Not on filedocumented in this encounter [facility] No data available for this section [facility] Summary Purpose Family History No Family History [...] and content) DATE CREATED AUTHOR 08/02/2022 [facility] [place] [facility] DATE CREATED AUTHOR AUTHOR'S ORGANIZ ATION 01/16/2024 [facility] DATE CREATED AUTHOR AUTHOR'S ORGANIZ ATION 01/19/2024 [facility] DATE CREATED AUTHOR AUTHOR'S ORGANIZ ATION 04/11/2024 [facility] DATE CREATED AUTHOR AUTHOR'S ORGANIZ ATION 06/13/2024 [facility] Patient Care team informatio n (unrecognized [...] May 19, 2024 End: May 19, 2024 Frame Stripper 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 [place] [address] [place] [address] PCP - General Family Medicine 06/01/21 Frame Stripper 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 Start Date End Date Hafsa Knowles MD [address] [place] [address] PCP - General Family Medicine 06/01/21 Frame Stripper 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 Start Date End Date Hafsa Knowles MD [address] [place] [address] PCP - General Family Medicine 06/01/21 REASON FOR VISIT (unrecogniz ed section and content) Reason Comments new patient - right leg pain after cellu litis Specialty Diagnoses / Procedures Referred By Mara gamez Referred To Contact Vascular Surgery Diagnoses Right leg pain Phlebitis and thrombophlebitis [place] [address] [place] [phone] Phone: tel: fax: [facility] [address] [place] [phone] Phone: tel: fax: Referral ID Status Reason Start Date Expiration Date Visits Requested Visits Authorized [id number] Pending Review Specialty Services Required 05/20/2024 05/20/2025 [...] BE BASED ON THE PRIMARY CLINICAL RECORDS. [facility] [employer] [facility]. provides no warranty or guarantee of the accuracy or completeness of information in this document.
--- NOTE | 2024-07-08 08:43 | ECG_ITS ---
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
--- NOTE | 2024-07-08 08:44 | CT_ITS ---
The [address] [address] Patient Name: BHAVESH MONTEIRO MRN: [id number] date: 1945 Sex: F Assigned Patient Location: ER Current Patient Location: ER Accession/Order Number: [id number] Exam Date: 07/08/2024 09:10 Report Date: 07/08/2024 10:35 At the request of: SHEMAR MESA Procedure: CT abdomen pelvis wo con CT ABDOMEN AND PELVIS WITHOUT CONTRAST: 07/08/2024 9:10 AM EST Clinical Data: RLQ pain Comparison: 06/13/2022 Unenhanced helically acquired data per protocol. The lack of IV contrast material hampers evaluation of the viscera, for adenopathy, and of the vasculature. The lack of oral contrast medium to some extent hampers evaluation of the bowel. All CT scans at this facility use dose modulation, iterative reconstruction, and/or weight based dosing when appropriate to reduce radiation dose to as low as reasonably achievable. FINDINGS: LOWER THORAX: Unremarkable. LIVER: No focal acute findings evident on this unenhanced study. Hepatic margins at points are slightly lobular. Caudate lobe is not hypertrophied. The right lobe is small. SPLEEN: Status post splenectomy. No recurrent or residual spleen is evident GB/BILIARY: Status post cholecystectomy. Biliary tree is not dilated. PANCREAS: Diffusely thin structure with areas of fatty replacement. Pancreatic duct is not dilated. ADRENALS: No acute finding. KIDNEYS/URETERS: The kidneys are symmetric in size and overall density on this unenhanced exam. Again, there is a lesion medial aspects upper to midpole left kidney which is well-defined. It measures 26 mm. Prior measurement 22 mm. Internally it measures 47 Hounsfield units in density. No left hydronephrosis or hydroureter. Today, there is mild right hydronephrosis and. The right ureter is little larger than the left throughout much of its course. No distinct evidence of a ureteral calculus. VESSELS: No AAA ABDOMINAL NODES: No obvious adenopathy. PELVIC NODES: No obvious adenopathy. BLADDER: Contains a small amount of fluid. Today, there is a calcification along its posterior and inferior aspects towards the right. This measures up to 3 mm in maximum size. REPRODUCTIVE: No acute finding at CT PERITONEUM: No free air. No free fluid. EXTRAPERITONEUM: No acute findings. BOWEL: No GI obstruction. Modest amount stool within aspects of the colon. On this study performed without oral contrast medium, no focally thickened loop of bowel is apparent BODY WALL: Diffusely thin. Fairly small umbilical hernia containing fat but no bowel. BONES: No acute findings. OTHER: No acute findings. CT/CT abdomen pelvis wo con IMPRESSION: 1. Today, mild right hydronephrosis and hydroureter. No ureteral calculus. Interval up to 3 mm calcification in the urinary bladder. This likely represents a calculus that has recently passed through the right UVJ. 2. Left renal lesion is well-defined. It has mildly increased in size in the interim. Etiology unknown. It could simply represent interval enlargement of benign cyst containing proteinaceous/hemorrhagic debris. However, given the interval change in size, recommend follow-up limited retroperitoneal ultrasound to further evaluate. 3. Liver as described. Suspect an element of cirrhosis but clinical correlation is needed Electronically authenticated by: HESHAM TURNER Date: 07/08/2024 10:35
[2024-07-08 08:52] LABS: Basophils Absolute Auto 0.1 10^3/uL (0.0-0.1); Basophils Percent Auto 0.7 % (0.2-2.0); Eosinophils Absolute Auto 0.1 10^3/uL (0.0-0.7); Eosinophils Percent Auto 1.9 % (0.9-7.0); Hematocrit 36.8 % (36.0-48.0); Hemoglobin 12.5 g/dL (12.0-16.0); Immature Granulocytes Abs Auto 0.02 10^3/uL (0.00-0.03); Immature Granulocytes Pct Auto 0.3 % (0.0-0.5); Lymphocytes Absolute Auto 2.1 10^3/uL (1.2-3.8); Lymphocytes Percent Auto 29.1 % (20.5-60.0); Mean Corpuscular Hemoglobin 34.5 pg (26.7-34.0); Mean Corpuscular Volume 101.7 fL (81.0-99.0); Mean Platelet Volume 11.6 fL (9.5-13.5); Monocytes Absolute Auto 0.8 10^3/uL (0.3-0.8); Monocytes Percent Auto 10.8 % (1.7-12.0); Neutrophils Absolute Auto 4.1 10^3/uL (1.4-6.5); Neutrophils Percent Auto 57.2 % (43.0-75.0); Platelet Count 291 10^3/uL (150-450); Red Blood Count 3.62 10^6/uL (4.20-5.40); Red Cell Distribution Width 14.1 % (11.0-15.0); White Blood Count 7.2 10^3/uL (4.0-11.0)
[2024-07-08 09:10] LABS: Alanine Aminotransferase 27 U/L (14-59); Albumin Globulin Ratio 0.7; Albumin Level 2.9 g/dL (3.4-5.0); Alkaline Phosphatase 254 U/L (46-116); Anion Gap 15.4; Aspartate Amino Transferase 43 U/L (15-37); BUN Creatinine Ratio 13.2; Bilirubin Total 0.8 mg/dL (0.2-1.0); Calcium 8.7 mg/dL (8.5-10.1); Carbon Dioxide 25.1 mmol/L (21.0-32.0); Chloride 107 mmol/L (98-107); Estimated GFR (African America >60 (>=60 mL/min/1.73m^2); Estimated GFR (Non-African Ame 50 (>=60 mL/min/1.73m^2); Glucose 126 mg/dL (74-106); Potassium 3.5 mmol/L (3.5-5.1); Sodium 144 mmol/L (136-145); Total Protein 6.9 g/dL (6.4-8.2)
[2024-07-08 09:12] LABS: Troponin I High Sensitivity 8.3 pg/mL (4.0-51.3)
[2024-07-08] MEDS: ONDANSETRON PF 4 MG/2 ML VIAL IV (09:38)
[2024-07-08] MEDS: MORPHINE SULFATE 2 MG/ML SYRINGE IV (09:38)
[2024-07-08 10:25] LABS: Bilirubin Urine NEGATIVE (NEGATIVE); Blood Urine LARGE (NEGATIVE); Clarity Urine CLEAR (CLEAR); Color Urine YELLOW (YELLOW); Glucose Urine UA NEGATIVE (NEGATIVE); Ketones Urine 15 mg/dL (NEGATIVE); Leukocyte Esterase Urine NEGATIVE (NEGATIVE); Nitrite Urine NEGATIVE (NEGATIVE); Protein Urine NEGATIVE (NEG/TRACE); Urobilinogen Urine 0.2 EU/dL (0.2-1.0)
[2024-07-08 10:26] LABS: Urine Microscopic Indicated YES
[2024-07-08 10:35] LABS: Bacteria Urine SMALL #/HPF (NONE SEEN); RBC Urine 20-50 #/HPF (0-2)
[2024-07-08 10:36] LABS: Amorphous Sediment Urine RARE; Cast Seen? NONE SEEN #/LPF (NONE SEEN); Crystals Seen? None Seen #/HPF (None Seen); Mucus Urine NONE SEEN (NONE SEEN); Squamous Epithelial Cell Urine MODERATE #/LPF (NONE/RARE); Urine Culture Indicated YES
--- NOTE | 2024-07-08 12:23 | ED.ABDPAIN1 ---
HPI - Abdominal Pain General Chief Complaint: Abdominal Pain Stated Complaint: Abdominal Pain Time Seen by Provider: 07/08/24 08:37 Source: patient Mode of arrival: ambulance History of Present Illness HPI narrative: The patient is coming to the ER with a right lower quadrant abdominal pain that woke her up from sleep at 3 AM, pain was right-sided associated with nausea and vomiting, mentioned that the last meal that she had was AROUND 8:00 when she had some chips and cookies The patient denies any other complaints of diarrhea or any other concerns Related Data Home Medications ?Medication ?Instructions ?Recorded ?Confirmed biotin 5 mg capsule 5 mg PO DAILY 05/01/24 06/16/24 cholecalciferol (vitamin D3) 125 125 mcg PO DAILY 05/01/24 06/16/24 mcg (5,000 unit) capsule cranberry 500 mg capsule 500 mg PO DAILY 05/01/24 06/16/24 d-mannose 500 mg capsule mg PO 05/01/24 estradiol 0.01% (0.1 mg/gram) 0.5 appful vaginal .twice a week 05/01/24 06/16/24 vaginal cream loratadine 10 mg capsule 10 mg PO DAILY 05/01/24 06/16/24 [id number] 30 mg-folic cap PO 06/16/24 acid 1 mg-dss 50 mg-dha 260 mg capsule Previous Rx's ?Medication ?Instructions ?Recorded cephalexin 500 mg capsule 500 mg PO BID #10 caps 07/08/24 tamsulosin 0.4 mg capsule (Flomax) 0.4 mg PO DAILY #7 caps 07/08/24 tramadol 50 mg tablet 50 mg PO Q8H PRN pain 2 days #6 07/08/24 tabs Allergies Allergy/AdvReac Type Severity Reaction Status Date / Time codeine AdvReac Nausea Verified 05/01/24 08:26 Review of Systems ROS Status of ROS 10 or more systems reviewed and unremarkable except as noted in history and below [facility] Medical History (Updated 07/08/24 @ 10:56 by Maryan Mcwilliams MD) Phlebitis and thrombophlebitis of superficial vessels of right lower extremity ?I80.01 - Phlebitis and thrombophlebitis of superficial vessels of right lower extremity (ICD-10) Phlebitis and thrombophlebitis of superficial vessels of left lower extremity ?I80.02 - Phlebitis and thrombophlebitis of superficial vessels of left lower extremity (ICD-10) Pain due to varicose veins of both lower extremities ?I83.813 - Varicose veins of bilateral lower extremities with pain (ICD-10) Raynaud disease ?I73.00 - Raynaud's syndrome without gangrene (ICD-10) Arthritis ?M19.90 - Unspecified osteoarthritis, unspecified site (ICD-10) History of ITP (1989) ?Z86.2 - Personal history of diseases of the blood and blood-forming organs and certain disorders involving the immune mechanism (ICD-10) History of blood transfusion ?Z92.89 - Personal history of other medical treatment (ICD-10) Thyroid cyst ?E04.1 - Nontoxic single thyroid nodule (ICD-10) Phlebitis ?I80.9 - Phlebitis and thrombophlebitis of unspecified site (ICD-10) Varicose vein of leg ?I83.90 - Asymptomatic varicose veins of unspecified lower extremity (ICD-10) Knee pain ?M25.569 - Pain in unspecified knee (ICD-10) Seasonal allergic rhinitis ?J30.2 - Other seasonal allergic rhinitis (ICD-10) Cataracts, bilateral ?H26.9 - Unspecified cataract (ICD-10) Hyperparathyroidism ?E21.3 - Hyperparathyroidism, unspecified (ICD-10) Renal cyst ?N28.1 - Cyst of kidney, acquired (ICD-10) Osteopenia ?M85.80 - Other specified disorders of bone density and structure, unspecified site (ICD-10) Vitamin D deficiency ?E55.9 - Vitamin D deficiency, unspecified (ICD-10) Chronic UTI ?N39.0 - Urinary tract infection, site not specified (ICD-10) Genu varum of right lower extremity ?M21.161 - Varus deformity, not elsewhere classified, right knee (ICD-10) Primary osteoarthritis of right knee ?M17.11 - Unilateral primary osteoarthritis, right knee (ICD-10) Surgical History (Updated 07/02/24 @ 10:11 by Saeid Godinez) Status post laser ablation of incompetent vein ?Z98.890 - Other specified postprocedural states (ICD-10) History of colonoscopy ?Z98.890 - Other specified postprocedural states (ICD-10) H/O knee surgery ?Z98.890 - Other specified postprocedural states (ICD-10) H/O breast biopsy ?Z98.890 - Other specified postprocedural states (ICD-10) History of cholecystectomy ?Z90.49 - Acquired absence of other specified parts of digestive tract (ICD-10) H/O oophorectomy H/O parathyroidectomy ?Z98.890 - Other specified postprocedural states (ICD-10) ?Z90.89 - Acquired absence of other organs (ICD-10) History of hysterectomy ?Z90.710 - Acquired absence of both cervix and uterus (ICD-10) H/O tubal ligation ?Z98.51 - Tubal ligation status (ICD-10) H/O splenectomy (1989) ?Z90.81 - Acquired absence of spleen (ICD-10) S/P arthroscopic knee surgery ?Z98.890 - Other specified postprocedural states (ICD-10) Family History (Updated 06/16/24 @ 10:21 by Hilda Reyes RN) Mother Varicose veins of bilateral lower extremities with pain Father Family history of myocardial infarction Other Cancer Family history of DVT Family history of cancer Social History (Updated 05/01/24 @ 08:31 by Francesca Zavala NP) Within the past year, how often did you have a drink containing alcohol: never Score interpretation: A score less than 3 is consistent with normal alcohol consumption. 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 General: Well-appearing and in no apparent distress. Skin: Warm, dry, no pallor noted. No rash. Head: Normocephalic, atraumatic. Neck: Supple, non-tender. Eye: Pupils are equal, round and EOMI. No scleral icterus. Ears, Nose, Mouth, and Throat: TM are clear, no nasal mucosal hypertrophy. Oral mucosa is moist, no posterior oropharynx erythema, uvula is mid-line Cardiovascular: Regular Rate and Rhythm without murmur, gallop or rub. Respiratory: No accessory muscle use or respiratory distress. Lungs are clear to auscultation, no wheezing, rales or rhonchi Chest Wall: no tenderness Back: No midline thoracic or lumbar vertebral tenderness. No CVA tenderness Musculoskeletal: normal ROM, no calf or popliteal tenderness, no lower extremity edema/swelling GI: Abdomen is soft, non-distended. Normal bowel sounds. No masses appreciated. Right lower quadrant tenderness. Negative McBurney, no rebound, guarding, or rigidity noted. Neurological: A&O x4. No cranial nerve dysfunction observed. No truncal ataxia. Moves all extremities. Sensation intact. Psychiatric: Cooperative and interactive. Normal mood and affect. Constitutional Vital Signs, click to edit/add: Last Vital Signs Temp 98 F 07/08/24 08:23 Pulse 62 07/08/24 09:00 Resp 13 07/08/24 09:00 BP 180/80 H 07/08/24 09:49 Pulse Ox 97 07/08/24 09:21 O2 Del Method Room Air 07/08/24 08:23 Course Vital Signs Vital signs: Vital Signs Temperature 98 F 07/08/24 08:23 Pulse Rate 70 07/08/24 08:23 Respiratory Rate 18 07/08/24 08:23 Blood Pressure 196/82 H 07/08/24 08:23 Pulse Oximetry 98 07/08/24 08:23 Oxygen Delivery Method Room Air 07/08/24 08:23 Temperature 98 F 07/08/24 08:23 Pulse Rate 62 07/08/24 09:00 Respiratory Rate 13 07/08/24 09:00 Blood Pressure 180/80 H 07/08/24 09:49 Pulse Oximetry 97 07/08/24 09:21 Oxygen Delivery Method Room Air 07/08/24 08:23 MDM - Abdominal Pain MDM Narrative Medical decision making narrative: The patient presenting to us with a right lower quadrant pain, she received Zofran and Toradol by the EMS before arrival The patient CBC and chemistry showed no acute significant pathology her CAT scan shows mild right hydronephrosis with a possible kidney stone in the bladder It was noted that the patient when she was going to the bathroom here she felt better after urinating she might have passed a stone The patient was covered with Flomax and Keflex just as a prophylaxis because she have bacteria in the urine with her history of kidney stone Patient also was covered for pain with tramadol The patient is to follow up with primary care physician in next 2-3 days or to return to the emergency department should any of the signs or symptoms worsen or new symptoms develop. The patient agrees with the following Diagnosis and Treatment plan and the patient will be discharged home. The patient had the discussion with her regarding finding of the left kidney mass but she already had a follow-up on that as outpatient with her primary care Lab Data Labs: Lab Results 07/08/24 07/08/24 Range/Units 08:45 10:17 WBC 7.2 (4.0-11.0) 10^3/uL RBC 3.62 L (4.20-5.40) 10^6/uL Hgb 12.5 (12.0-16.0) g/dL Hct 36.8 (36.0-48.0) % MCV 101.7 H (81.0-99.0) fL MCH 34.5 H (26.7-34.0) pg MCHC 34.0 (29.9-35.2) g/dL RDW 14.1 (11.0-15.0) % Plt Count 291 (150-450) 10^3/uL MPV 11.6 (9.5-13.5) fL Neut % (Auto) 57.2 (43.0-75.0) % Lymph % (Auto) 29.1 (20.5-60.0) % Adams % (Auto) 10.8 (1.7-12.0) % Eos % (Auto) 1.9 (0.9-7.0) % Baso % (Auto) 0.7 (0.2-2.0) % Neut # (Auto) 4.1 (1.4-6.5) 10^3/uL Lymph # (Auto) 2.1 (1.2-3.8) 10^3/uL Adams # (Auto) 0.8 (0.3-0.8) 10^3/uL Eos # (Auto) 0.1 (0.0-0.7) 10^3/uL Baso # (Auto) 0.1 (0.0-0.1) 10^3/uL Abs Immat Gran (auto) 0.02 (0.00-0.03) 10^3/uL Imm/Tot Granulo (auto) 0.3 (0.0-0.5) % Sodium 144 (136-145) mmol/L Potassium 3.5 (3.5-5.1) mmol/L Chloride 107 (98-107) mmol/L Carbon Dioxide 25.1 (21.0-32.0) mmol/L Anion Gap 15.4 BUN 14.0 (7.0-18.0) mg/dL Creatinine 1.06 H (0.55-1.02) mg/dL Est GFR ( Amer) >60 (>=60 mL/min/1.73m^2) Est GFR (Non-Af Amer) 50 L (>=60 mL/min/1.73m^2) BUN/Creatinine Ratio 13.2 Glucose 126 H (74-106) mg/dL Calcium 8.7 (8.5-10.1) mg/dL Total Bilirubin 0.8 (0.2-1.0) mg/dL AST 43 H (15-37) U/L ALT 27 (14-59) U/L Alkaline Phosphatase 254 H (46-116) U/L Troponin I High Sens 8.3 (4.0-51.3) pg/mL Total Protein 6.9 (6.4-8.2) g/dL Albumin 2.9 L (3.4-5.0) g/dL Globulin 4.0 g/dL Albumin/Globulin Ratio 0.7 Lipase 25.0 (16.0-77.0) U/L Urine Color Yellow (YELLOW) Urine Clarity Clear (CLEAR) Urine pH 7.0 (5.0-9.0) Ur Specific Aiken 1.020 (1.005-1.025) Urine Protein Negative (NEG/TRACE) mg/dL Urine Glucose (UA) Negative (NEGATIVE) mg/dL Urine Ketones 15 A (NEGATIVE) mg/dL Urine Occult Blood Large A (NEGATIVE) Urine Nitrite Negative (NEGATIVE) Urine Bilirubin Negative (NEGATIVE) Urine Urobilinogen 0.2 (0.2-1.0) EU/dL Ur Leukocyte Esterase Negative (NEGATIVE) Urine RBC 20-50 A (0-2) #/HPF Urine WBC 2-5 A (NONE SEEN) #/HPF Ur Squamous Epith Cells Moderate A (NONE/RARE) #/LPF Urine Crystals None seen (None Seen) #/HPF Amorphous Sediment Rare Urine Bacteria Small A (NONE SEEN) #/HPF Urine Casts None seen (NONE SEEN) #/LPF Urine Mucus None seen (NONE SEEN) Ur Culture Indicated? Yes Discharge Plan Discharge Chief Complaint: Abdominal Pain Clinical Impression: Kidney stone, Hydronephrosis Patient Disposition: Home, Self-Care Time of Disposition Decision: 10:56 Condition: Good Prescriptions / Home Meds: New tamsulosin [Flomax] 0.4 mg capsule 0.4 mg PO DAILY Qty: 7 0RF cephalexin 500 mg capsule 500 mg PO BID Qty: 10 0RF tramadol 50 mg tablet 50 mg PO Q8H PRN (Reason: pain) 2 Days Qty: 6 0RF No Action estradiol 0.01 % (0.1 mg/gram) cream 0.5 appful VAGINAL .twice a week cholecalciferol (vitamin D3) 125 mcg (5,000 unit) capsule 125 mcg PO DAILY cranberry 500 mg capsule 500 mg PO DAILY Rx Instructions: administer with a meal biotin 5 mg capsule 5 mg PO DAILY d-mannose 500 mg capsule PO loratadine 10 mg capsule 10 mg PO DAILY [id number] 30 mg iron-1 mg -50 mg-260 mg capsule PO Print Language: [place] Citizen Instructions: How to Strain Your Urine (ED), Hydronephrosis (ED) Referrals: Quentin Hernandez MD [Primary Care Provider] - 1 week Discharge Date/Time: 07/08/24 11:29
[2024-07-10 14:40] LABS: BOX Test Reference Lab FIRELANDS; BOX Test Sent Out URINE
== END 2024-07-08 11:29 | disposition home or self-care (01) ==
PROVIDERS: Emergency Provider Emergency Medicine; PCP Radiology Diagnostic Radiology
DX: N13.2 Hydronephrosis with renal and ureteral calculous obstruction (principal); Z90.49 Acquired absence of other specified parts of digestive tract; Z90.710 Acquired absence of both cervix and uterus; Z90.81 Acquired absence of spleen
CPT/HCPCS: 36415; 74176; 80053; 81001; 83690; 84484; 85025; 87086; 93005; 96374; 96375; 99285; J2270; J2405

== ENCOUNTER 2024-07-09 10:18 | Outpatient (OUT) | payer MEDICARE, OTHER, SELFPAY ==
--- NOTE | 2024-07-03 08:51 | V.VEINS.HP ---
Vital Signs 07/09/24 10:30 BP 118/78 BP Location Left Brachial BP Position Sitting BP Cuff Size Adult BP Source Manual Cuff Respiration 18 Pulse 95 H Pulse Source Monitor Pulse Oximetry (%) 96 Oxygen Delivery Method Room Air Varicose Veins Patient in this day for EVLT of right aasv. Blanco Michel MD personally performed the services described in this documentation, as scribed by Hilda Reyes RN in my presence and it is both accurate and complete. Hilda Michel RN, am scribing for, and in the presence of, Dr. Blanco Sullivan and in the presence of the patient. thigh: bilateral, knee: bilateral, calf: bilateral, ankle: bilateral and anderson: bilateral aching, sharp and tender 3 8 weeks Worsened in recent months: Yes standing analgesics, elevating extremities and compression stockings Reports erythema, bruising, heaviness, limb pain, edema and leg edema History of lower extremity trauma: No Superficial thrombophlebitis: Yes Family history of varicose veins: yes Has patient had previous lower extremity venous surgery: No Patient has previously received the following treatment(s) for lower extremity varicose veins: Reports none Does patient have a history of : yes Does patient intend to have future pregnancies: no Has patient had lower extremity venous scan with relux testing: Yes Support hose used: Yes Problems walking or doing physical activity: Yes How does it affect you: Unable to stand for long periods of time Do you walk much: Yes Do you stand much: Yes Review of Systems ROS Narrative Blanco Michel MD personally performed the services described in this documentation, as scribed by Hilda Reyes RN in my presence and it is both accurate and complete. Hilda Michel RN, am scribing for, and in the presence of, Dr. Blanco Sullivan and in the presence of the patient. Status of ROS 10 or more systems reviewed and unremarkable except as noted in history and below Cardiovascular Reports: edema and swelling of feet/ankles Musculoskeletal Reports: extremity pain, extremity swelling, joint pain, joint swelling and muscle cramps Integumentary/Breast Reports: itching, redness, skin pain, skin tenderness, skin swelling and sores [facility] Medical History (Updated 07/08/24 @ 10:56 by Maryan Mcwilliams MD) Phlebitis and thrombophlebitis of superficial vessels of right lower extremity ?I80.01 - Phlebitis and thrombophlebitis of superficial vessels of right lower extremity (ICD-10) Phlebitis and thrombophlebitis of superficial vessels of left lower extremity ?I80.02 - Phlebitis and thrombophlebitis of superficial vessels of left lower extremity (ICD-10) Pain due to varicose veins of both lower extremities ?I83.813 - Varicose veins of bilateral lower extremities with pain (ICD-10) Raynaud disease ?I73.00 - Raynaud's syndrome without gangrene (ICD-10) Arthritis ?M19.90 - Unspecified osteoarthritis, unspecified site (ICD-10) History of ITP (1989) ?Z86.2 - Personal history of diseases of the blood and blood-forming organs and certain disorders involving the immune mechanism (ICD-10) History of blood transfusion ?Z92.89 - Personal history of other medical treatment (ICD-10) Thyroid cyst ?E04.1 - Nontoxic single thyroid nodule (ICD-10) Phlebitis ?I80.9 - Phlebitis and thrombophlebitis of unspecified site (ICD-10) Varicose vein of leg ?I83.90 - Asymptomatic varicose veins of unspecified lower extremity (ICD-10) Knee pain ?M25.569 - Pain in unspecified knee (ICD-10) Seasonal allergic rhinitis ?J30.2 - Other seasonal allergic rhinitis (ICD-10) Cataracts, bilateral ?H26.9 - Unspecified cataract (ICD-10) Hyperparathyroidism ?E21.3 - Hyperparathyroidism, unspecified (ICD-10) Renal cyst ?N28.1 - Cyst of kidney, acquired (ICD-10) Osteopenia ?M85.80 - Other specified disorders of bone density and structure, unspecified site (ICD-10) Vitamin D deficiency ?E55.9 - Vitamin D deficiency, unspecified (ICD-10) Chronic UTI ?N39.0 - Urinary tract infection, site not specified (ICD-10) Genu varum of right lower extremity ?M21.161 - Varus deformity, not elsewhere classified, right knee (ICD-10) Primary osteoarthritis of right knee ?M17.11 - Unilateral primary osteoarthritis, right knee (ICD-10) Surgical History (Updated 07/02/24 @ 10:11 by Saeid Godinez) Status post laser ablation of incompetent vein ?Z98.890 - Other specified postprocedural states (ICD-10) History of colonoscopy ?Z98.890 - Other specified postprocedural states (ICD-10) H/O knee surgery ?Z98.890 - Other specified postprocedural states (ICD-10) H/O breast biopsy ?Z98.890 - Other specified postprocedural states (ICD-10) History of cholecystectomy ?Z90.49 - Acquired absence of other specified parts of digestive tract (ICD-10) H/O oophorectomy H/O parathyroidectomy ?Z98.890 - Other specified postprocedural states (ICD-10) ?Z90.89 - Acquired absence of other organs (ICD-10) History of hysterectomy ?Z90.710 - Acquired absence of both cervix and uterus (ICD-10) H/O tubal ligation ?Z98.51 - Tubal ligation status (ICD-10) H/O splenectomy (1989) ?Z90.81 - Acquired absence of spleen (ICD-10) S/P arthroscopic knee surgery ?Z98.890 - Other specified postprocedural states (ICD-10) Family History (Updated 06/16/24 @ 10:21 by Hilda Reyes RN) Mother Varicose veins of bilateral lower extremities with pain Father Family history of myocardial infarction Other Cancer Family history of DVT Family history of cancer Social History (Updated 05/01/24 @ 08:31 by Francesca Zavala NP) Within the past year, how often did you have a drink containing alcohol: never Score interpretation: A score less than 3 is consistent with normal alcohol consumption. 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 Highest level of school completed/degree received: some college, no degree Little interest or pleasure in doing things: not at all Feeling down, depressed, or hopeless: not at all Meds Home Medications and Allergies Home Medications ?Medication ?Instructions ?Recorded ?Confirmed ?Type biotin 5 mg capsule 5 mg PO DAILY 05/01/24 06/16/24 History cholecalciferol (vitamin D3) 125 125 mcg PO DAILY 05/01/24 06/16/24 History mcg (5,000 unit) capsule cranberry 500 mg capsule 500 mg PO DAILY 05/01/24 06/16/24 History d-mannose 500 mg capsule mg PO 05/01/24 History estradiol 0.01% (0.1 mg/gram) 0.5 appful vaginal .twice a week 05/01/24 06/16/24 History vaginal cream loratadine 10 mg capsule 10 mg PO DAILY 05/01/24 06/16/24 History [id number] 30 mg-folic cap PO 06/16/24 History acid 1 mg-dss 50 mg-dha 260 mg capsule cephalexin 500 mg capsule 500 mg PO BID #10 caps 07/08/24 Rx tamsulosin 0.4 mg capsule (Flomax) 0.4 mg PO DAILY #7 caps 07/08/24 Rx tramadol 50 mg tablet 50 mg PO Q8H PRN pain 2 days #6 07/08/24 Rx tabs Allergies Allergy/AdvReac Type Severity Reaction Status Date / Time codeine AdvReac Nausea Verified 05/01/24 08:26 Exam Narrative Exam Narrative: Blanco iMchel MD personally performed the services described in this documentation, as scribed by Hilda Reyes RN in my presence and it is both accurate and complete. Hilda Michel RN, am scribing for, and in the presence of, Dr. Blanco Sullivan and in the presence of the patient. Constitutional Documenting provider has reviewed patient's vital signs: yes Common normals: oriented x3 Nutritional appearance: overweight Lymph Lymphatic: no lymphedema noted Cardio Peripheral pulses: posterior tibial pulses present and dorsalis pedis pulses present Extremity General: calf tenderness, edema and other findings Right lower extremity: lower leg Right lower leg: inspection and palpation Left lower extremity: lower leg Left lower leg: inspection and palpation Other: Right mid medial calf healed wound 1.0x1.5cm Neuro Common normals: oriented x3 Assessment and Plan Assessment and Plan (1) Pain due to varicose veins of both lower extremities: Plan The patient tolerated the procedure well without complication.? The patient verbalizes understanding and states they will comply.? Patient was given post-procedure instructions. Patient was discharged in good condition.? Scheduled to undergo follow-up evaluation 07/13/24. Blanco Michel MD personally performed the services described in this documentation, as scribed by Hilda Reyes RN in my presence and it is both accurate and complete. I, Hilda Reyes RN, am scribing for, and in the presence of, Dr. Blanco Sullivan and in the presence of the patient. Procedures Procedure Instructions Procedures Plan of care: Risks and benefits of the procedure were discussed at length and informed written consent was obtained.? Time-out completed for verification of correct patient, procedure and site.? Staff present during time-out: Hilda Reyes RN,? Blanco Sullivan MD, [facility],T. Time Out Time____3___ Patient prepped and procedure performed in usual sterile fashion. Risk of injury related to use of Diode laser and/or laser devices? __AG___ ? Serial number of laser used :? [id number] Control panel self test performed, electrical cords in good condition, floor is dry, basin of water available, fire extinguisher in close proximity_AG__ Polycarbonate goggles available and Laser warning signs outside of doors___AG___ Eye protection provided to patient and staff in room_AG___ Use of laser retardant drapes and dull blackened instruments as directed__AG___ Use of nonflammable prep solutions and use of saline soaked sponges to protect tissues as indicated _AG___ Length ____8____ cm Laser operated by ___Dr. Sullivan Physician verbal confirmation laser locked in place__AG__ Laser start time (date and time) __07/09/24@1102 Laser stop time(date and time) ___07/09/24@1103 Storey _8.0___ Average laser use __407 Joules Average laser use___51 seconds Pulse continuous ___AG_? Pulse intermittent ___ Amount of Tumescent used ___50cc___ Evaluated patient for signs and symptoms of electrical injury __AG___ ? Skin clear at insertion site __AG___ Patient tolerated procedure well.? Right leg Coban dressing applied to access site.? Applied Right thigh high leg compression stocking. Will return on 07/13/24 for Right leg limited venous ultrasound and exam. IBlanco MD personally performed the services described in this documentation, as scribed by Hilda Reyes RN in my presence and it is both accurate and complete. I, Hilda Reyes RN, am scribing for, and in the presence of, Dr. Blanco Sullivan and in the presence of the patient.
--- NOTE | 2024-07-03 09:00 | W.VEIN ---
Discharge Plan Discharge Disposition: Home, Self-Care Outpatient Diagnostics: VC Facility EST LMTD (Routine) Timeframe: 2 Weeks Facility: [facility] - Location: Vein Center Ordered By: Blanco Sullivan VC EXT Venous RT LMTD (Routine) Timeframe: 2 Weeks Facility: [facility] - Location: Vein Center Ordered By: lBanco Sullivan Follow Up Appointments: 07/13/24 Plan of Treatment: u/s follow up following evlt of right aasv 07/09/24 Patient Instructions: Endovenous Ablation (DC) Print Language: Iranian Discharge Date/Time: 07/09/24 11:15
--- NOTE | 2024-07-09 10:25 | VEIN_ITS ---
[address] [address] Patient Name: BHAVESH MONTEIRO MRN: [id number] date: 1945 Sex: F Assigned Patient Location: Current Patient Location: Accession/Order Number: [id number] Exam Date: 07/09/2024 10:30 Report Date: 07/09/2024 11:13 At the request of: CARLO RICHARDSON Procedure: VC Endovenous Ablation 1VeinRT EXAMINATION: VC Endovenous Ablation 1VeinRT HISTORY: I83.813 - Varicose veins of bilateral lower extremities w... The risks and benefits of the procedure had been previously discussed, and were rediscussed at length. Informed written consent was obtained. Hilda Reyes RN and Anat Belle RDMS, RVT assisted. Time out procedure was performed. The right lower extremity was prepared and draped in the usual sterile fashion to allow knee flexion in the sterile field. Duplex ultrasound probe was draped in a sterile cover, sterile transmission gel was used. Venous mapping was performed with the areas of dilation and large tributaries marked. The total length was 8 cm from the entry proximal thigh to 3 cm below the Saphenofemoral junction. The diameter of the right anterior accessory saphenous vein ranged from 7.1 mm. A 30 gauge needle and 1% buffered lidocaine was used to anesthetize the entry site. A 4 mm incision was made with a scalpel and the saphenous vein was entered percutaneously under direct ultrasound guidance with a micropuncture set, a single stick was successful in gaining access. A micro-guide wire was inserted and the needle removed. A micro-set including a dilator was inserted over the microwire and the needle and dilator were removed. A guide wire was inserted through the micro-set and guided through the saphenous vein to the saphenofemoral junction. The dilator was removed and an introducer sheath was inserted over the wire until the end of the sheath entered the saphenofemoral junction. The dilator and wire were removed and the 600 micron fiber was introduced and placed and positioned so that it extended beyond the sheath and was 3 cm distal to the saphenofemoral or saphenopopliteal junction. Final position of the fiber was determined by ultrasound guidance and duplex imaging. Tumescent anesthetic was delivered by ultrasound guidance. 50 cc of fluid was delivered along the entire course of the saphenous vein. The solution consisted of 1000 cc of normal saline with 40 mL of 1% lidocaine and 20 mL of sodium bicarbonate. A final positioning check was made. The energy source was turned on by means of the foot pedal and the fiber and sheath were withdrawn. The total number of Joules delivered was 407. The laser was active for 51 seconds under continuous pulse, average laser use of 8 J. Laser start time: 11:02 AM Laser stop time: 11:03 AM Date: 07/09/2024. A duplex ultrasound revealed compressibility and flow at the saphenofemoral junction immediately after the procedure. Hemostasis at the access site was achieved. The skin incision of the saphenous vein was closed with a 4 x 4. A compression stocking was applied. Postop instructions were given. A follow up appointment was recommended and scheduled. The patient tolerated the procedure well. Electronically authenticated by: DARIO BESS Date: 07/09/2024 11:13
[2024-07-09 10:30] VITALS: BP 118/78; PULSE 95; O2SAT 96
[2024-07-09] MEDS: LIDOCAINE HCL 1% 100 MG/10 ML MDV INJ (10:51)
[2024-07-09] MEDS: 0.9 % SODIUM CHLORIDE 500 ML, LIDOCAINE HCL 20 ML, SODIUM BICARBONATE 10 MEQ INJ (10:52)
== END 2024-07-09 11:15 | disposition home or self-care (01) ==
LOC: VC 10:23
PROVIDERS: PCP Radiology Diagnostic Radiology; Visit Provider Radiology Diagnostic Radiology
DX: I83.813 Varicose veins of bilateral lower extremities with pain (principal)
CPT/HCPCS: 36478

== ENCOUNTER 2024-07-13 10:46 | Outpatient (OUT) | payer MEDICARE, OTHER, SELFPAY ==
--- NOTE | 2024-07-13 09:12 | VEINCLINIC_ITS ---
Vital Signs 07/13/24 09:13 Height 5 ft 6 in Weight 102 kg BMI 36.3 Varicose Veins Patient in today for follow up ultrasound of right lower extremity following EVLT of right AASV completed on 07/09/24. Blanco Michel MD personally performed the services described in this documentation, as scribed by Nichole Wesley RDMS in my presence and it is both accurate and complete. Nichole Michel RDMS am scribing for, and in the presence of, Dr. Blanco Sullivan and in the presence of the patient. thigh: bilateral, knee: bilateral, calf: bilateral, ankle: bilateral and anderson: bilateral aching, sharp and tender 3 8 weeks Worsened in recent months: Yes standing analgesics, elevating extremities and compression stockings Reports erythema, bruising, heaviness, limb pain, edema and leg edema History of lower extremity trauma: No Superficial thrombophlebitis: Yes Family history of varicose veins: yes Has patient had previous lower extremity venous surgery: No Patient has previously received the following treatment(s) for lower extremity varicose veins: Reports none Does patient have a history of : yes Does patient intend to have future pregnancies: no Has patient had lower extremity venous scan with relux testing: Yes Support hose used: Yes Problems walking or doing physical activity: Yes How does it affect you: Unable to stand for long periods of time Do you walk much: Yes Do you stand much: Yes Review of Systems ROS Narrative Blanco Michel MD personally performed the services described in this documentation, as scribed by Nichole Wesley RDMS in my presence and it is both accurate and complete. Nichole Michel RDMS, am scribing for, and in the presence of, Dr. Blanco Sullivan and in the presence of the patient. Status of ROS 10 or more systems reviewed and unremark able except as noted in history and below Cardiovascular Reports: edema and swelling of feet/ankles Musculoskeletal Reports: extremity pain, extremity swelling, joint pain, joint swelling and muscle cramps Integumentary/Breast Reports: itching, redness, skin pain, skin tenderness, skin swelling and sores [facility] Medical History (Updated 07/08/24 @ 10:56 by Maryan Mcwilliams MD) Phlebitis and thrombophlebitis of superficial vessels of right lower extremity ?I80.01 - Phlebitis and thrombophlebitis of superficial vessels of right lower extremity (ICD-10) Phlebitis and thrombophlebitis of superficial vessels of left lower extremity ?I80.02 - Phlebitis and thrombophlebitis of superficial vessels of left lower extremity (ICD-10) Pain due to varicose veins of both lower extremities ?I83.813 - Varicose veins of bilateral lower extremities with pain (ICD-10) Raynaud disease ?I73.00 - Raynaud's syndrome without gangrene (ICD-10) Arthritis ?M19.90 - Unspecified osteoarthritis, unspecified site (ICD-10) History of ITP (1989) ?Z86.2 - Personal history of diseases of the blood and blood-forming organs and certain disorders involving the immune mechanism (ICD-10) History of blood transfusion ?Z92.89 - Personal history of other medical treatment (ICD-10) Thyroid cyst ?E04.1 - Nontoxic single thyroid nodule (ICD-10) Phlebitis ?I80.9 - Phlebitis and thrombophlebitis of unspecified site (ICD-10) Varicose vein of leg ?I83.90 - Asymptomatic varicose veins of unspecified lower extremity (ICD-10) Knee pain ?M25.569 - Pain in unspecified knee (ICD-10) Seasonal allergic rhinitis ?J30.2 - Other seasonal allergic rhinitis (ICD-10) Cataracts, bilateral ?H26.9 - Unspecified cataract (ICD-10) Hyperparathyroidism ?E21.3 - Hyperparathyroidism, unspecified (ICD-10) Renal cyst ?N28.1 - Cyst of kidney, acquired (ICD-10) Osteopenia ?M85.80 - Other specified disorders of bone density and structure, unspecified site (ICD-10) Vitamin D deficiency ?E55.9 - Vitamin D deficiency, unspecified (ICD-10) Chronic UTI ?N39.0 - Urinary tract infection, site not specified (ICD-10) Genu varum of right lower extremity ?M21.161 - Varus deformity, not elsewhere classified, right knee (ICD-10) Primary osteoarthritis of right knee ?M17.11 - Unilateral primary osteoarthritis, right knee (ICD-10) Surgical History (Updated 07/02/24 @ 10:11 by Saeid Godinez) Status post laser ablation of incompetent vein ?Z98.890 - Other specified postprocedural states (ICD-10) History of colonoscopy ?Z98.890 - Other specified postprocedural states (ICD-10) H/O knee surgery ?Z98.890 - Other specified postprocedural states (ICD-10) H/O breast biopsy ?Z98.890 - Other specified postprocedural states (ICD-10) History of cholecystectomy ?Z90.49 - Acquired absence of other specified parts of digestive tract (ICD- 10) H/O oophorectomy H/O parathyroidectomy ?Z98.890 - Other specified postprocedural states (ICD-10) ?Z90.89 - Acquired absence of other organs (ICD-10) History of hysterectomy ?Z90.710 - Acquired absence of both cervix and uterus (ICD-10) H/O tubal ligation ?Z98.51 - Tubal ligation status (ICD-10) H/O splenectomy (1989) ?Z90.81 - Acquired absence of spleen (ICD-10) S/P arthroscopic knee surgery ?Z98.890 - Other specified postprocedural states (ICD-10) Family History (Updated 06/16/24 @ 10:21 by iHlda Reyes RN) Mother Varicose veins of bilateral lower extremities with pain Father Family history of myocardial infarction Other Cancer Family history of DVT Family history of cancer Social History (Updated 05/01/24 @ 08:31 by Francesca Zavala NP) Within the past year, how often did you have a drink containing alcohol: never Score interpretation: A score less than 3 is consistent with normal alcohol consumption. 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 Highest level of school completed/degree received: some college, no degree Little interest or pleasure in doing things: not at all Feeling down, depressed, or hopeless: not at all Meds Home Medications and Allergies Home Medications ?Medication ?Instructions ?Recorded ?Confirmed ?Type biotin 5 mg capsule 5 mg PO DAILY 05/01/24 06/16/24 History cholecalciferol (vitamin D3) 125 125 mcg PO DAILY 05/01/24 06/16/24 History mcg (5,000 unit) capsule cranberry 500 mg capsule 500 mg PO DAILY 05/01/24 06/16/24 History d-mannose 500 mg capsule mg PO 05/01/24 History estradiol 0.01% (0.1 mg/gram) 0.5 appful vaginal .twice a week 05/01/24 06/16/24 History vaginal cream loratadine 10 mg capsule 10 mg PO DAILY 05/01/24 06/16/24 History [id number] 30 mg-folic cap PO 06/16/24 History acid 1 mg-dss 50 mg-dha 260 mg capsule cephalexin 500 mg capsule 500 mg PO BID #10 caps 07/08/24 Rx tamsulosin 0.4 mg capsule (Flomax) 0.4 mg PO DAILY #7 caps 07/08/24 Rx tramadol 50 mg tablet 50 mg PO Q8H PRN pain 2 days #6 07/08/24 07/13/24 Rx tabs Allergies Allergy/AdvReac Type Severity Reaction Status Date / Time codeine AdvReac Nausea Verified 05/01/24 08:26 Exam Narrative Exam Narrative: Blanco Michel MD personally performed the services described in this docum entation, as scribed by Nichole Wesley RDMS in my presence and it is both accurate and complete. Nichole Michel RDMS, am scribing for, and in the presence of, Dr. Blanco Sullivan and in the presence of the patient. Constitutional Documenting provider has reviewed patient's vital signs: yes Common normals: oriented x3 Nutritional appearance: overweight Lymph Lymphatic: no lymphedema noted Cardio Peripheral pulses: posterior tibial pulses present and dorsalis pedis pulses present Extremity General: calf tenderness, edema and other findings Right lower extremity: lower leg Right lower leg: inspection and palpation Left lower extremity: lower leg Left lower leg: inspection and palpation Neuro Common normals: oriented x3 Results Imaging Venous US: Radiologist's impression: Heat induced thrombus in right AASV 1.7 cm from SFJ and extends to mid thigh. Blanco Michel MD personally performed the services described in this documentation, as scribed by Nichole Wesley RDMS in my presence and it is both accurate and complete. Nichole Michel RDMS, am scribing for, and in the presence of, Dr. Blanco Sullivan and in the presence of the patient. Assessment and Plan Assessment and Plan (1) Phlebitis and thrombophlebitis of superficial vessels of right lower extremity: Plan Plan is for patient to return for Varithena/microfoam of right leg on 07/16/23. IBlanco MD personally performed the services described in this documentation, as scribed by Nichole Wesley RDMS in my presence and it is both accurate and complete. I, Nichole Wesley RDMS, am scribing for, and in the presence of, Dr. Blanco Sullivan and in the presence of the patient.
[2024-07-13 09:13] VITALS: BMI 36.3
--- NOTE | 2024-07-13 10:51 | VEIN_ITS ---
Patient Name: BHAVESH MONTEIRO MR#: [id number] : 1945 Exam Date: 07/13/2024 Ordering Doctor: DR DARIO BESS M.D. RADIOLOGY REPORT PROCEDURE: [facility] - OFFICE VISIT FOLLOW UP [facility] PROGRESS NOTES: The patient reports improvement in leg symptoms. There has been interval reduction in varicosities. The patient has followed our recommendations to walk 20-30 minutes once or twice per day since the procedure. Physical exam demonstrates decrease in varicosities of the leg. Persistent superficial varicosities are identified along the legs bilaterally. Review of the ultrasound performed the same day demonstrates occlusive thrombus extending throughout the treated vein(s), see separate report, consistent with a successful ablation. No thrombus extending into or beyond the saphenofemoral junction. The patient expressed a desire to proceed with treatment of remaining incompetent varicosities. The patient was informed that treatment was a process and would require several procedures/sessions. VEIN/[facility] EST [facility]MT[facility] IMPRESSION: 1. Successful ablation of the right anterior accessory saphenous vein(s). 2. Persistent varicose veins and lower extremity symptoms. PLAN: 1. Microfoam chemical ablation of right leg incompetent branch saphenous varicosities. Nurse notes, history and physical were reviewed and confirmed, see attached forms. The nurse was present throughout the physical exam and consultation Dictated by: Dario Bess M.D. on 07/13/2024 at 11:37 Approved by: Dario Bess M.D. on 07/13/2024 at 11:38
--- NOTE | 2024-07-13 10:51 | VEIN_ITS ---
Patient Name: BHAVESH MONTEIRO MR#: [id number] : 1945 Exam Date: 07/13/2024 Ordering Doctor: DR DARIO SULLIVAN M.D. RADIOLOGY REPORT PROCEDURE: [facility] EXT [facility]EN[facility] RT L[facility]D COMPARISON: [facility] EXT [facility]ENOUS [facility], 07/06/2024. INDICATIONS: I80.01 - Phlebitis and thrombophlebitis of superficial veins right leg TECHNIQUE: Lower extremity rucker scale and Duplex Doppler evaluation of the deep venous system from the inguinal ligament through the calf veins. FINDINGS: REGION: Right lower extremity. THROMBI: Negative for DVT. Heat induced thrombus in right AASV 1.7 cm from SFJ and extends to mid thigh. COMPRESSIBILITY: Non-compressible segments corresponding to thrombus FLOW: Areas of no flow corresponding to thrombus OTHER: Multiple large varicose veins remain in right leg. Largest is lateral/anterior thigh. CONCLUSION: 1. Successful post ablation occlusion of right anterior accessory saphenous vein. Dictated by: Dario Sullivan M.D. on 07/13/2024 at 11:36 Approved by: Dario Sullivan M.D. on 07/13/2024 at 11:37
--- OUTSIDE RECORDS SUMMARY | 2024-07-13 11:00 | XMS_ITS | CCD ---
Author Organization [facility] Care Team Providers Care Tower Switch Operator Name Role Phone HAFSA KNOWLES Primary [...] SAMUEL, DR ANTWON Sharma Consulting UnavailHafsa Hernandez Unavailable Katie Almonte Attending Unavailable Katie Almonte Attending Unavailable Katie Almonte Attending Unavailable Katie Almonte Admitting Unavailable Johny Perdomo DO Attending UnavailJohny Wallace DO Attending UnavailHafsa Hernandez MD Primary Care Hafsa Lan MD Primary Care Provider [phone] ZAIDA CHILD Attending Unavailable HAFSA KNOWLES Referring HAFSA Salas Primary Care Unavailable Maryan Mcwilliams Attending Unavailable Maryan Mcwilliams Admitting Unavailable Allergies Allergy Classification Reported Allergen(s) Allergy Type Date of Onset Reaction(s) Facility (16 sources) Codeine; Translations: [codeine] Drug Allergy 12-26-19 16 Nausea [facility] (1 source) Codeine Drug Allergy [facility] Repository (2 sources) Acetaminophen / HYDROcodone Drug Allergy Unknown S[employer] [facility] [employer] Other (2 sources) Codeine Drug Allergy Unknown S[employer] [facility] [employer] Other (2 sources) patient allergy list reviewed by nurse or physicia Propensity to adverse reactions 04-29-20 15 Comment:Done Checkd[employer]In Other (2 sources) Allergies Reconciled Propensity to adverse reactions Unknown S.N. [employer] [facility] [employer] Other (5 sources) Acetaminophen; Translations: [acetaminophen] Drug Allergy 01-24-20 24 [facility] (5 sources) HYDROcodone; Translations: [hydrocodone] Drug Allergy 01-24-20 [facility] (1 source) Codeine Drug Allergy 05-19-20 [facility] Repository Medications Current Medications Medication Drug Class(es) Dates [...] mouth. Active take 1 capsule by mo [facility] once daily Biotin 5000 5 MG [...] 2 times per week after for maintenance., [email or web address], 168, cm, 01/15/24 10:54:00 EDT, Height/Length Dosing, 96, kg, 01/15/24 10:54:00 EDT, Weight Dosing Start Date: 01/15/24 Status: Ordered Start: 08-22-2022 Estrace 0.1 mg /g Cream See Instructions, 42.5 gm, Refill(s) 6, Apply pea-sized amound around the opening of the urethra 3 times per week for 1 month then 2 times per week after for maintenance., [email or web address], 168, cm, 08/22/22 11:52:00 EST, Height/Length [...] given by office. Patient was given a [employer] coupon voucher to use, this is not to be ran through patients insurance. 24 tablet 07/18/2022 Active sulfamethoxazole 800 mg / trimethoprim 160 mg oral tablet (3 sources) Dihydrofolate Reductase Inhibitor Antibacterial, Sulfonamide Antimicrobial Start: 05-08-2024 take 1 tablet by mouth twice daily Sulfamethoxazole-Trimethoprim Active 1 TAB PO Twice daily May 07, 2024 11:00pm Start: 06-25-2023 [facility] Bactrim DS 800-160 MG 1 tablet Orally Twice a day for 10 day(s) Jun, Active Vitamin D-3 1000 UNIT (2 sources) take 1 capsule by mo [facility] once daily Vitamin D-3 1000 UNIT [...] 2:53pm Start: 12-05-2021 take 1 capsule by [facility] every twelve hours Keflex 500 mg Cap 500 mg = 1 cap(s), Oral, q12hr, # 6 cap(s), Refills(s) 0, Pharmacy: [email or web address], 168, cm, 12/05/21 10:16:00 EDT, Height/Length Dosing, 97.5, kg, 12/05/21 10:16:00 EDT, Weight Dosing Start Date: 12/05/21 Status: Ordered omeprazole 40 mg delayed release oral capsule (6 sources) Proton Pump Inhibitor Start: 01-21-2024 End: 01-24-2024 take 40 mg by mouth once daily Omeprazole Discontinued 40 MG PO Daily January 20, 2024 11:00pm January 24, 2024 10:02am Start: 09-05-2020 take 1 capsule by mo [facility] once daily Omeprazole 40 MG Omeprazole [...] Test Name Value Interpretation Reference Range Facility Urine Cultureon 07-08-2024 Bacteria identified Cx Nom (U) 30,000 colonies/ml mixed bacterial skin contaminants including mixed gram negative bacilli - 2 Days PERFORMED BY: [place] [address] PATHOLOGIST CUSTOM FRAMING SPECIALIST ZAIDA Sumner [facility] Comment on above: Performed By: #### C UU #### [address] Activated partial thrombopla stin time (aPTT) in platelet poor plasma by coagulation aon 05-01-2024 aPTT Coag (PPP) [Time] 30.5 s 22.3-36.[address] [facility] Basophils Auto (Bld) [#/Vol] on 05-01-2024 Basophils (Bld) [#/Vol] 0.0 10 3/uL 0.0-0.1 [facility] Basophils/100 WBC Auto (Bld) on 05-01-2024 Basophils/100 WBC (Bld) 0.7 % 0.2-2.0 [facility] Eosinophils/100 WBC Auto (Bl d)on 05-01-2024 Eosinophils/100 WBC (Bld) 3.8 % 0.9-7.0 [facility] Erythrocyte distribution wid th Auto (RBC) [Ratio]on 05-01-2024 Erythrocyte distribution width (RBC) [Ratio] 14.4 % 11.0-15.0 [facility] Estimated glomerular filtrat ion rate (GFR) non- Americanon 05-01-2024 GFR/1.73 sq M.predicted among non-blacks MDRD (S/P/Bld) [Vol rate/Area] 51 mL/min/{1.73_m2} Low >=60 mL/min/1.73m 2 [facility] Globulin Calc (S) [Mass/Vol] on 05-01-2024 Globulin (S) [Mass/Vol] 4.3 g/dL [facility] Hematocrit Auto (Bld) [Volum e fraction]on 05-01-2024 Hematocrit (Bld) [Volume fraction] 39.1 % 36.0-48.0 [facility] Hemoglobin [Mass/volume] in Bloodon 05-01-2024 Hemoglobin (Bld) [Mass/Vol] 13.1 g/dL 12.0-16.0 [facility] INR in Platelet poor plasma by Coagulation assayon 05-01-2024 INR Coag (PPP) [Relative time] 1.07 {INR} [facility] Comment on above: DESIRED INR:2.0-3.0 CONDITIONS NOT LISTED BELOW2.5-3.5 FOR PROSTHETIC HEART VALVE REPLACEMENT2.5-3.5 RECURRENT THROMBOSIS Laboratory - Chemistry and C hemistry - challengeon 05-01-2024 Bilirubin Ql (U) Negative NEGATIVE [facility] Glucose (U) [Mass/Vol] Negative NEGATIVE [facility] Ketones Ql (U) Negative NEGATIVE [facility] pH (U) 6.0 [pH] 5.0-9.0 [facility] Specific gravity (U) [Rel density] 1.020 1.005-1.025 [facility] Urobilinogen Qn (U) 0.2 {Diana'U}/dL 0.2-1.0 [facility] Albumin [Mass/Vol] 2.9 g/dL Low 3.4-5.0 [facility] ALP [Catalytic activity/Vol] 196 U/L High 46-116 [facility] ALT [Catalytic activity/Vol] 44 U/L 14-59 [facility] AST [Catalytic activity/Vol] 51 U/L High 15-37 [facility] Bilirubin [Mass/Vol] 0.7 mg/dL 0.2-1.0 [facility] Bilirubin.direct [Mass/Vol] 0.2 mg/dL 0.0-0.2 [facility] Calcium [Mass/Vol] 9.1 mg/dL 8.5-10.1 [facility] Chloride [Moles/Vol] 107 mmol/L 98-107 [facility] CO2 [Moles/Vol] 25.8 mmol/L 21.0-32.0 [facility] Creatinine [Mass/Vol] 1.05 mg/dL High 0.55-1.02 [facility] GFR/1.73 sq M.predicted MDRD (S/P/Bld) [Vol rate/Area] mL/min/{1.73_m2} >=60 mL/min/1.73m 2 [facility] Glucose [Mass/Vol] 84 mg/dL 74-106 [facility] Potassium [Moles/Vol] 3.7 mmol/L 3.5-5.1 [facility] Protein [Mass/Vol] 7.2 g/dL 6.4-8.2 [facility] Sodium [Moles/Vol] 143 mmol/L 136-145 [facility] Urea nitrogen [Mass/Vol] 20.0 mg/dL High 7.0-18.0 [facility] Urea nitrogen/Creatinine [Mass ratio] 19.0 mg/mg [facility] Laboratory - Hematology and Cell countson 05-01-2024 Immature granulocytes/100 WBC (Bld) 0.2 % 0.0-0.5 [facility] Laboratory - Specimen inform ationon 05-01-2024 Appearance (U) CLEAR CLEAR [facility] Color (U) YELLOW YELLOW [facility] Laboratory - Urinalysison Leukocyte esterase Test strip Ql (U) Negative NEGATIVE [facility] Nitrite Ql (U) Negative NEGATIVE [facility] Protein Ql (U) Negative NEG/TRACE [facility] Leukocytes [#/volume] correc reji for nucleated erythrocytes in Blood by Automated counon 05-01-2024 WBC corrected for nucl RBC Auto (Bld) [#/Vol] 4.5 10 3/uL 4.0-11.0 [facility] Lymphocytes Auto (Bld) [#/Vo l]on 05-01-2024 Lymphocytes (Bld) [#/Vol] 2.0 10 3/uL 1.2-3.8 [facility] Lymphocytes/100 WBC Auto (Bl d)on 05-01-2024 Lymphocytes/100 WBC (Bld) 43.8 % 20.5-60.0 [facility] MCH Auto (RBC) [Entitic mass ]on 05-01-2024 MCH (RBC) [Entitic mass] 34.5 pg High 26.7-34.0 [facility] MCHC Auto (RBC) [Mass/Vol]on 05-01-2024 MCHC (RBC) [Mass/Vol] 33.5 g/dL 29.9-35.2 [facility] MCV Auto (RBC) [Entitic vol] on 05-01-2024 MCV (RBC) [Entitic vol] 102.9 fL High 81.0-99.0 [facility] Monocytes Auto (Bld) [#/Vol] on 05-01-2024 Monocytes (Bld) [#/Vol] 0.6 10 3/uL 0.3-0.8 [facility] Monocytes/100 WBC Auto (Bld) on 05-01-2024 Monocytes/100 WBC (Bld) 13.8 % High 1.7-12.0 [facility] Neutrophils Auto (Bld) [#/Vo l]on 05-01-2024 Neutrophils (Bld) [#/Vol] 1.7 10 3/uL 1.4-6.5 [facility] Neutrophils/100 WBC Auto (Bl d)on 05-01-2024 Neutrophils/100 WBC (Bld) 37.7 % Low 43.0-75.0 [facility] No Panel Informationon 05-01 Urine Microscopic Review NO [facility] Urine Occult Blood Negative NEGATIVE [facility] Eosinophils # (Auto) 0.2 10 3/uL 0.0-0.7 [facility] Immature Granulocyte # (Auto) 0.01 10 3/uL 0.00-0.03 [facility] No Panel InformationOrdered By: Johny Perdomo on 05-01-2024 MRSA Screening Culture [facility] Platelet mean volume Auto (B ld) [Entitic vol]on 05-01-2024 Platelet mean volume (Bld) [Entitic vol] 12.6 fL 9.5-13.5 [facility] Platelets Auto (Bld) [#/Vol] on 05-01-2024 Platelets (Bld) [#/Vol] 266 10 3/uL 150-450 [facility] Prothrombin time (PT)on 04-14 PT Coag (PPP) [Time] 11.3 s 9.0-11.6 [facility] RBC Auto (Bld) [#/Vol]on RBC (Bld) [#/Vol] 3.80 10 6/uL Low 4.20-5.40 [facility] Serum or plasma albumin/glob ulin mass ratioon 05-01-2024 Albumin/Globulin [Mass ratio] 0.7 {ratio} [facility] Serum or plasma anion gap de terminationon 05-01-2024 Anion gap [Moles/Vol] 13.9 mmol/L [facility] C Urineon 01-19-2024 Bacteria identified Cx [...] Locations R1: This test was performed at: [employer] [facility], [address] [place] [address], [id number]- , , Normal [facility] Comment on above: Performed By: #### 2 [id number] #### [facility] [address] [place] [address] Ambulatory Visit Summaryon 0 01-15-2024 Ambulatory Visit [...] URL, URO When: Where: [address] [place] [address]- [phone] Medications What How Much When Instructions Unchanged estradiol topical (Estrace 0.1 mg/ g Cream) See instructions Apply pea-sized amound around the opening of the urethra 3 times per week for 1 month then 2 times per week after for maintenance. Pickup at [facility] Unchanged biotin (biotin 5000 mcg oral capsule) Contact prescribing physician if questions or concerns Unchanged cholecalciferol (Vitamin D3 5000 intl units oral capsule) 1 Capsules By Mouth Every day with food Contact prescribing physician if questions or concerns Unchanged fexofenadine (Mary) By Mouth Contact prescribing physician if questions or concerns Pharmacy Information [facility]: [address] [place] [id number] [phone] Allergies codeine (nausea) Problems Ongoing - Any [...] to (more content not included)... Normal [facility] Urology Office/Clinic Noteon 01-15-2024 Urology Office/Clinic [...] Information Gage JACOB, Katie Arteaga, URL, URO [address], [place] [phone] Additional Instructions: pt's choice on when to schedule f/u Patient Education Kegel Janette Michel, Yuliana Olson, personally scribed for Dr. Almonte on 01/15/2024 11:27:08. . Documentation recorded by the scribeYuliana, accurately reflects the services(s) I performed and decisions made by me. Authenticated by Dr. Almonte on 01/15/2024 23:28:03. Problem List/Past Medical History Ongoing Asymptomatic bacteriuria Calculus of gallbladder Hyperparathyroidism Osteopeni (more content not included)... Normal [facility] Comment on above: Result Comment: Elec tronically Signed By: Katie Almonte MD\.br\Date and Time Signed: 01/15/24 23:28 EDT\.br\Electronically Co-Signed By: Yuliana Olson\.br\Date and Time Co-Signed: 01/15/24 11:27 EDT [place] 02-21-2023 Screens [id number] [facility] Patient Educationon 02-21-20 23 Patient Education [...] these instructions at home: Medicines ? Take jwqq-rug-uohmvot and prescription medicines only as told by [...] provider. Document Revised: 02/10/2021 Document Reviewed: 02/10/2021 [employer] Patient Education ? 2022 [employer] [facility] Office/Clinic Noteon 02-20-2023 Urology Office/Clinic Note [...] exam (more content not included)... Normal [facility] Comment on above: Result Comment: Elec tronically Signed By: Katie Almonte MD\.br\Date and Time Signed: 02/20/23 12:03 EDT\.br\Electronically Co-Signed By: Sepideh Perez\.br\Date and Time Co-Signed: 02/20/23 11:49 EDT Covid-19 PCR (CVDTB)on 07-15 SARS-CoV-2 (COVID-19) RNA AZUL+probe Ql (Unsp spec) Not detected Normal NOT DETECTED [facility] Comment on above: Result Comment: This test is not yet approved or cleared by the [place] FDA. When there are no FDA-approved or cleared tests available, and other criteria are met, FDA can make tests available under an emergency access mechanism called an Emergency Use Authorization (EUA). The EUA for this test is supported by the [employer] of Health and Human Service's (HHS's) declaration [...] SARS-CoV-2. Performed By: #### C VDTBH #### [facility] [address] [place] [address] Dr. Manjula Arzate CREATININEon 06-13-2022 Creatinine [Mass/Vol] 0.98 mg/dL Normal 0.55-1.02 [facility] Comment on above: Performed By: #### C JESUS #### [facility] [address] [place] [address] Dr. Manjula Arzate EGFR-AF ENGLISH >60 Normal >=60 [facility] Comment on above: Performed By: #### C JESUS #### [facility] [address] [place] [address] Dr. Manjula Arzate EGFR-NON AF ENGLISH 55 mL/min/1.73m2 Critically low >=60 [facility] Comment on above: Performed By: #### C JESUS #### [facility] [address] ABD/PELV W CONon [...] DARIO BESS Date: 2022-06-13 17:40 Normal [facility] CT ABD/PELVIS WO CONon 11-27 CT [...] by: DARIO BESS Date: 2021-11-27 10:41 Normal [facility] Vital Signs Date Time Vital Sign Value Performing Clinician Facility 06-10-2024 15:24-0500 Body height 167.6 cm Zaida Child MD Work Phone: [facility] 06-10-2024 15:24-0500 Body mass index (BMI) [Ratio] 32.28 kg/m2 Zaida Child MD Work Phone: [facility] 06-10-2024 15:240500 Body weight 90.72 kg Zaida Child MD Work Phone: [facility] 06-10-2024 15:24-0500 Diastolic blood pressure 84 mm[Hg] Zaida Child MD Work Phone: [facility] 06-10-2024 15:24-0500 Systolic blood pressure 132 mm[Hg] Zaida Child MD Work Phone: [facility] 05-28-2024 11:08-0500 Body height 167.6 cm Zaida Child MD Work Phone: [facility] 05-28-2024 11:08-0500 Body mass index (BMI) [Ratio] 33.09 kg/m2 Zaida Child MD Work Phone: [facility] 05-28-2024 11:08-0500 Body temperature 97.39 [degF] Zaida Child MD Work Phone: [facility] 05-28-2024 11:08-0500 Body weight 92.99 kg Zaida Child MD Work Phone: [facility] 05-28-2024 11:08-0500 Diastolic blood pressure 84 mm[Hg] Zaida Child MD Work Phone: [facility] 05-28-2024 11:08-0500 Heart rate 72 /min Zaida Child MD Work Phone: [facility] 05-28-2024 11:08-0500 SaO2% (BldA) [Mass fraction] 97 % Zaida Child MD Work Phone: [facility] 05-28-2024 11:08-0500 Systolic blood pressure 146 mm[Hg] Zaida Child MD Work Phone: [facility] 05-19-2024 11:18-0500 Body height 165.1 cm [facility] 05-19-2024 11:18-0500 Body mass index (BMI) [Ratio] 33.1 kg/m2 [facility] 05-19-2024 11:18-0500 Body weight 90.26 kg [facility] 05-19-2024 11:18-0500 Diastolic blood pressure 76 mm[Hg] [facility] 05-19-2024 11:18-0500 Heart rate 91 /min [facility] 05-19-2024 11:18-0500 Systolic blood pressure 114 mm[Hg] [facility] 05-07-2024 14:39-0400 Body height 165.1 cm [facility] 05-07-2024 14:39-0400 Body mass index (BMI) [Ratio] 33.7 kg/m2 [facility] 05-07-2024 14:39-0400 Body weight 92.07 kg [facility] 05-07-2024 14:39-0400 Diastolic blood pressure 79 mm[Hg] [facility] 05-07-2024 14:39-0400 Heart rate 76 /min [facility] 05-07-2024 14:39-0400 Systolic blood pressure 116 mm[Hg] [facility] 04-29-2024 08:21-0400 Body height 165.1 cm [facility] 04-29-2024 08:21-0400 Body mass index (BMI) [Ratio] 33.8 kg/m2 [facility] 04-29-2024 08:21-0400 Body weight 92.3 kg [facility] 04-29-2024 08:21-0400 Diastolic blood pressure 82 mm[Hg] [facility] 04-29-2024 08:21-0400 Heart rate 74 /min [facility] 04-29-2024 08:21-0400 Respiratory rate 16 /min [facility] 04-29-2024 08:21-0400 SaO2% (BldA) [Mass fraction] 96 % [facility] 04-29-2024 08:21-0400 Systolic blood pressure 120 mm[Hg] [facility] 01-24-2024 10:54-0400 Body height 165.1 cm [facility] 01-24-2024 10:54-0400 Body mass index (BMI) [Ratio] 35.6 kg/m2 [facility] 01-24-2024 10:54-0400 Body weight 97.06 kg [facility] 01-24-2024 10:54-0400 Diastolic blood pressure 81 mm[Hg] [facility] 01-24-2024 10:54-0400 Heart rate 71 /min [facility] 01-24-2024 10:54-0400 Systolic blood pressure 121 mm[Hg] [facility] 01-15-2024 10:37-0400 Blood Pressure Location Katie Lue [facility] 01-15-2024 10:37-0400 Body temperature 97.88 [degF] Katie Lue [facility] 01-15-2024 10:37-0400 Diastolic blood pressure 78 mm[Hg] Katie Lue [facility] 01-15-2024 10:37-0400 Heart rate 71 /min Katie Lue [facility] 01-15-2024 10:37-0400 Systolic blood pressure 132 mm[Hg] Katie Lue [facility] 02-20-2023 10:53-0400 Blood Pressure Location Katie Lue [facility] 02-20-2023 10:53-0400 Diastolic blood pressure 76 mm[Hg] Katie Lue [facility] 02-20-2023 10:53-0400 Heart rate 68 /min Katie Lue [facility] 02-20-2023 10:53-0400 Respiratory rate 16 /min Katie Lue [facility] 02-20-2023 10:53-0400 Systolic blood pressure 130 mm[Hg] Katie Lue [facility] 08-22-2022 11:50-0500 Blood Pressure Location Katie Lue [facility] 08-22-2022 11:50-0500 Diastolic blood pressure 78 mm[Hg] Katie Lue [facility] 08-22-2022 11:50-0500 Heart rate 68 /min Katie Lue [facility] 08-22-2022 11:50-0500 Respiratory rate 16 /min Katie Lue [facility] 08-22-2022 11:50-0500 Systolic blood pressure 132 mm[Hg] Katie Lue [facility] 12-05-2021 10:33-0400 Diastolic blood pressure 81 mm[Hg] Mally Key Jr. [facility] 12-05-2021 10:33-0400 Mean blood pressure 101 mm[Hg] Mally Key Jr. [facility] 12-05-2021 10:33-0400 Systolic blood pressure 142 mm[Hg] Mally Key Jr. [facility] 12-05-2021 10:12-0400 Blood Pressure Location Mally Key Jr. [facility] 12-05-2021 10:12-0400 Diastolic blood pressure 97 mm[Hg] Mally Key Jr. [facility] 12-05-2021 10:12-0400 Heart rate 87 /min Mally Key Jr. [facility] 12-05-2021 10:12-0400 Respiratory rate 16 /min Mally Key Jr. [facility] 12-05-2021 10:12-0400 Systolic blood pressure 163 mm[Hg] Mally Key Jr. [facility] Encounters Encounter Date Encounter Type Care Provider Facility Start: 07-08-2024 End: 07-08-2024 ambulatory [facility] Facility:[facility] Start: 06-10-2024 End: 06-10-2024 Office outpatient visit 15 minutes Zaida Child MD Work Phone: [facility] Comment on above: Superficial phlebiti s and thrombophlebitis of right lower extremity (Primary Dx); Varicose veins of bilateral lower extremities with pain Start: 06-10-2024 End: 06-10-2024 ambulatory ZAIDA CHILD [facility] Start: 06-03-2024 End: 06-04-2024 Orders Only [facility] Start: 05-28-2024 End: 05-28-2024 Office outpatient new 30 minutes Zaida Child MD Work Phone: [facility] Comment on above: Superficial phlebiti s and thrombophlebitis of right lower extremity (Primary Dx); Right leg pain; Phlebitis and thrombophlebitis of unspecified site; Varicose veins of bilateral lower extremities with pain Start: 05-19-2024 End: 05-19-2024 ambulatory [facility] Work Phone: Start: 05-19-2024 End: 05-19-2024 [facility] Work Phone: Start: 05-07-2024 Non-patient / Non-visit [facility] Work Phone: Start: 05-07-2024 End: 05-07-2024 ambulatory [facility] Work Phone: Start: 05-07-2024 End: 05-07-2024 Patient encounter procedure [facility] Work Phone: Start: 2024 Non-patient / Non-visit [facility] Work Phone: Start: 05-01-2024 Patient encounter status [facility] Start: 05-01-2024 Non-patient / Non-visit [facility] Work Phone: Start: 04-29-2024 End: 04-29-2024 ambulatory [facility] Work Phone: Start: 04-29-2024 End: 04-29-2024 Patient encounter [facility] Work Phone: Start: 04-10-2024 End: 04-10-2024 ambulatory Johny Perdomo DO Facility:[facility] Start: 03-20-2024 ambulatory Johnytae willis DO Facility:[facility] Start: 02-05-2024 Patient encounter procedure [facility] Start: 01-24-2024 End: 01-24-2024 ambulatory [facility] Work Phone: Start: 01-24-2024 End: 01-24-2024 Patient encounter [facility] Work Phone: Start: 01-15-2024 End: 01-15-2024 ambulatory Katie M. Lue [facility] Start: 01-15-2024 End: 01-15-2024 Lab Drop off Katie Jeffries. Lue [facility] Start: 01-15-2024 End: 01-15-2024 ambulatory Katie Jeffries. Lue Facility:[facility] Start: 01-15-2024 End: 01-15-2024 Patient encounter procedure Katie M. Lue [facility] Start: 08-01-2023 End: 08-01-2023 ambulatory Hafsa Knowles Other [employer] Other Start: 08-01-2023 Telephone encounter Hafsa Knowles [facility] Start: 07-30-2023 End: 07-30-2023 ambulatory Hafsa Knowles Other [employer] Other Start: 07-30-2023 Telephone encounter Hafsa Benson [facility] Start: 02-20-2023 End: 02-20-2023 ambulatory Katie Jeffries. Lue Facility:[facility] Start: 02-20-2023 End: 02-20-2023 Patient encounter procedure Katie M. Lue [facility] Start: 08-22-2022 End: 08-22-2022 Patient encounter procedure Katie M. Lue [facility] Start: 08-01-2022 End: 08-01-[address] ANTWON BAKER Facility:[facility] Start: 07-30-2022 End: 07-31-[address] ANTWON BAKER Facility:[facility] Start: 07-12-2022 Adult health examination Vanessa Knowles Other [employer] Other Start: 06-13-2022 End: 06-14-[address] HAFSA KNOWLES Facility:[facility] Start: 12-05-2021 End: 12-05-2021 Patient encounter procedure Mally Key Jr. [facility] Start: 11-27-2021 End: 11-28-[address] [...] Author Start: 06-10-2025 Tobacco Screening Tobacco Screening [facility] Start: 05-28-2025 Tobacco Screening Tobacco Screening [facility] Start: 06-25-2024 End: 06-25-2024 Patient encounter procedure 06/25/2024 9:20 AM EST Office Visit [facility] [address] [place] [address] Zaida Child MD [address], [address] [address] [facility] Start: 06-18-2024 End: 06-18-2024 Patient encounter procedure 06/18/2024 10:20 AM EST Office Visit [facility] [address] [place] [address] Zaida Child MD [address], [address] [address] [facility] Start: 05-19-2024 Patient referral [facility] Work Phone: Start: 03-15-2024 COVID-19 Vaccine ( season) COVID-19 Vaccine ( season) [facility] Start: 07-20-2023 Tobacco Screening Tobacco Screening [facility] Start: 2012 Fall Risk Screening Fall Risk Screen ing [facility] Start: 1966 DTaP,Tdap and Td Vaccines (1 - Tdap) DTaP,Tdap and Td Vaccines (1 - Tdap) [facility] Start: 1959 [facility] Views for bone density [facility] MG Breast - bilatera l Screening [facility] Patient referral [facility] Work Phone: US Lower extremity v ein - right [facility] XR Tibia and Fibula - right 2 Views [facility] Immunizations Immunization Date Immunization Notes Care Provider Fa cility 04-10-2022 SARS-CoV-2 (COVID-19 ) [id number] Katie Almonte [facility] 04-11-2021 SARS-CoV-2 (COVID-19 ) mRNA BNT-162b2 vax Katie Lue [facility] 02-15-2021 zoster vaccine recombinant Katie Lue [facility] 11-30-2020 zoster vaccine recombinant Katie Lue [facility] 08-30-2020 SARS-CoV-2 (COVID-19 ) mRNA BNT-162b2 vax Katie Lue [facility] Comment on above: Result Comment: 2022: [id number] 08-09-2020 SARS-CoV-2 (COVID-19 ) mRNA BNT-162b2 vax Katie Lue [facility] Comment on above: Result Comment: 2022: [id number] 05-16-2020 influenza virus vaccine, split virus (incl. purified surface antigen) Hafsa Knowles Other [employer] Other 05-16-2020 influenza virus vaccine, unspecified formulation [facility] 04-26-2020 influenza virus vaccine, unspecified formulation Katie Josée [facility] 12-16-2018 pneumococcal polysaccharide vaccine, 23 valent Hafsa Knowles Other [facility] 11-07-2017 pneumococcal conjuga te vaccine, 13 valent Mally Key Jr. [facility] 11-07-2017 pneumococcal Conjuga te, unspecified formulation; Translations: [Need for prophylactic vaccination against Streptococcus pneumoniae (pneumococcus)] Hafsa Knowles Other [facility] Other 10-13-2017 pneumococcal polysaccharide vaccine, 23 valent Katie Almonte [facility] 04-14-2017 influenza virus vaccine, unspecified formulation Katie Almonte [facility] Payers Date Payer Category Payer Self-pay 2020 [employer] Member Subscriber Plan / Payer (Effective 2020-Present) Name: Damaso Kan Relation to Subscriber: Self Name: Damaso Kan Payer ID: Not on file Type: Not on file Address: [place] [id number] 2012 Medicare 2012 Unknown 1959 Medicare [id number] 1959 Unknown [id number] 1947 Unknown [id number] 93 1947 Unknown [id number] 93 1947 Unknown [id number] .[id number] 93 1947 Unknown [id number] .[id number] 93 1947 Unknown [id number] .[id number] 27 1947 Unknown [id number] 27 1947 Unknown [id number] 27 1947 Unknown [id number] 96 1947 Unknown [id number] 286 Medicare Medicare [id number] Unknown [id number] 31 Social History Date Type Detail Facility Start: 12-05-2021 End: 07-18-2022 Tobacco smoking status Never smoked tobacco (finding) [facility] Start: 05-28-2024 End: 06-10-2024 Sex Assigned At Female [facility] Tobacco smoking status Never [facility] Start: 1945 Sex Assigned At Female [facility] Start: 07-18-2022 Tobacco use and exposure Smokeless tobacco non-user [facility] Start: 05-28-2024 End: 06-10-2024 Alcoholic beverage intake Lifetime non-drinker (finding) [facility] Start: 05-28-2024 End: 06-10-2024 History of Social function [facility] Start: 07-18-2022 Alcohol Comment rare [facility] Start: 1945 Sex assigned at Not on file P [facility] Start: 05-31-2021 Sex Female (finding) [facility] Functional Status Date Assessment Result Facility 01-15-2024 Functional Status N/A [facility] 02-20-2023 Functional Status N/A [facility] 08-22-2022 Functional Status N/A [facility] Clinical Notes 12-05-2021 to 06-10-2024 Assessment & Plan Note - Zaida Child MD - 06/10/2024 5:32 PM ESTAssessment & Plan Note - Zaida Child MD - 06/10/2024 5:32 PM ESTMoalise Child MD - 06/10/2024 3:30 PM EST Note Date & Type Note Facility 06-10-2024 Evaluation + Plan note Associated Problem(s): Varicose veins of bilateral lower extremities with pain Venous reflux ultrasound compression stockings leg elevation and exercise. [facility] 06-10-2024 Evaluation + Plan note Associated Problem(s): Superficial phlebitis and thrombophlebitis of right lower extremity Warm compresses nonsteroidal anti-inflammatory drugs leg elevation and compression therapy. We will get venous reflux ultrasound and rule out DVT as well. [facility] 06-10-2024 Miscellaneous Notes Associated Problem(s): Varicose veins of bilateral lower extremities with pain Venous reflux ultrasound compression stockings leg elevation and exercise. Associated Problem(s): Superficial phlebitis and thrombophlebitis of right lower extremity Warm compresses nonsteroidal anti-inflammatory drugs leg elevation and compression therapy. We will get venous reflux ultrasound and rule out DVT as well. documented in this encounter [facility] 06-10-2024 History of Presen t illness Narrative [...] given by office. Patient was given a [employer] coupon voucher to use, this is not [...] Performed by Vic Hitchcock DO at [facility] BREAST SURGERY bx, marker in place left [...] FSVS, FACS [facility] This note was created with the assistance of a speech recognition program. While intending to generate a timely document that accurately reflects the content of the visit, no guarantee can be provided that every grammatical or spelling mistake has been or will be identified or corrected. Thank you for your understanding. documented in this encounter [facility] 05-28-2024 Evaluation + Plan note Associated Problem(s): Varicose veins of bilateral lower extremities with pain Compression stockings leg elevation exercise. Venous reflux ultrasound. [facility] 05-28-2024 Miscellaneous Notes Associated Problem(s): Varicose veins of bilateral lower extremities with pain Compression stockings leg elevation exercise. Venous reflux ultrasound. Associated Problem(s): Superficial phlebitis and thrombophlebitis of right lower extremity Nonsteroidal anti-inflammatory drugs warm compresses leg elevation and compression therapy when possible documented in this encounter [facility] 05-28-2024 Evaluation + Plan note Associated Problem(s): Superficial phlebitis and thrombophlebitis of right lower extremity Nonsteroidal anti-inflammatory drugs warm compresses leg elevation and compression therapy when possible [facility] 05-28-2024 History of Presen t illness [...] given by office. Patient was given a [employer] coupon voucher to use, this is not [...] 06/14/2021 Performed by Vic Hitchcock DO at [facility] bx, marker in place left [...] right lower extremity Right leg pain - [facility] [place], [place] Phlebitis and thrombophlebitis of unspecified [facility] [place], [place] Varicose veins of bilateral lower extremities with pain Zaida Child MD, TRIPP, RPVI, FSVS, FACS [facility] This note was created with the assistance of a speech recognition program. While intending to generate a timely document that accurately reflects the content of the visit, no guarantee can be provided that every grammatical or spelling mistake has been or will be identified or corrected. Thank you for your understanding. documented in this encounter [facility] 04-10-2024 Note Procedure: MRI of th e [...] Signed, Electronically Signed in Other Vendor System) [facility] 04-10-2024 Note Procedure: MRI of th e [...] Signed, Electronically Signed in Other Vendor System) [facility] 01-15-2024 Evaluation + Plan note Diagnostic Tests PendingUrine Culture 01/15/24 [facility] 01-15-2024 Hospital Discharg e instructions Patient [...] provider. Document Revised: 11/09/2021 Document Reviewed: 11/09/2021 [employer] Patient Education 2022 [employer]te. Follow Up Care 02/20/2023 12:02:25 With:Gage JACOB, Katie Arteaga, KEKE, URO Address: [address] [place] [address]- [phone] When: Unknown [facility] 01-15-2024 Note Patient Education Obstetrics and Gynecology [...] provider. Document Revised: 11/09/2021 Document Reviewed: 11/09/2021 [employer] Patient Education ? [address] [facility] 07-30-2023 Evaluation note Encounter Date Diagnosis Assessment Notes Jul, Acute non-recurrent maxillary sinusitis (ICD-10 - J01.00) [facility] Other 08-09-2023 Hospital Discharge instructions Patient Education 02/20/2023 09:58:29 Urinary Tract Infection, Adult, Jdqf-wb-Cdji Urinary Tract Infection, Adult A urinary tract [...] Follow these instructions at home: Medicines Take olds-bau-mjapbpl and prescription medicines only as told by [...] provider. Document Revised: 02/10/2021 Document Reviewed: 02/10/2021 [employer] Patient Education 2022 [employer]Ante. Follow Up Care 08/22/2022 12:56:32 With:Gage JACOB, KEKE Carrera, URO Address: When:Within 1 Year(s) [facility] 02-08-2023 Hospital Discharge instructions Patient Education [...] 06/17/2013 Document Revised: 02/18/2019 Document Reviewed: 02/18/2019 [employer] Patient Education 2019 [employer] Follow Up Care 06/13/2022 11:42:12 With:Gage JACOB, KEKE Carrera, URO Address: When: Unknown [facility] 05-24-2022 Hospital Discharge instructions Patient Education [...] provider gives to you. In general: Take bhab-ird-mksoxhj and prescription medicines only as told by [...] 01/26/2015 Document Revised: 08/07/2018 Document Reviewed: 08/07/2018 [employer] Patient Education 2020 RxAnte. Follow Up Care 06/07/2021 13:20:37 With:Shahid Ontiveros MD, Mally Mendiola, URO Address: [facility] [address] , [place] [address]- When: Unknown [facility] evaluation + Plan note No data available for this section [facility] evaluation + Plan note Future Appointments Appointment Date:02/20/2023 10:45:00 AM Scheduled Provider:Gage JACOB, Katie Arteaga Location:[facility] Appointment Type:URO [facility] Future Appointments Appointment Date:02/26/2024 10:45:00 AM Scheduled Provider:Katie Almonte MD Location:[facility] Appointment Type:URO Office Visit [facility] evalwbgwsh [facility]No [facility] [employer] Other Evaluation note* Diagnosis Onset Date Resolution Status Menopausal and postmenopausal disorder acute Screening mammogram for breast cancer acute [facility] Work Phone: Evaluation noteNo assessment information available [facility] Work Phone: evaluxfrlv note* Diagnosis Onset Date Resolution Status Preoperative examination acu te Right leg pain acute [facility] Work Phone: evaluation note* Diagnosis Onset Date Resolution Status Preoperative examination acu te Right leg pain acute Phlebitis acute Right leg pain acute [facility] Work Phone: evalurjkla note* Diagnosis Superficial phlebitis and thrombophlebitis of [...] ABOVE SURGERY Hospitalization History CHILD X'S [address] [facility] [employer] Other Hospital Discharge instructions No data available for this section [facility] instructionsAmbulatory Orders* Referral to Vascular Surgery Time Frame: 05/19/24, Location: None Selected [facility] Work Phone: InstructionsNot on filedocumented in this encounter [facility] filedocumented in this encounter [facility]ructionsNot on filedocumented in this encounter [facility] No data available for this section [facility] Summary Purpose Family History No Family [...] and content) DATE CREATED AUTHOR 08/02/2022 [facility] DATE CREATED AUTHOR AUTHOR'S ORGANIZ ATION 01/16/2024 [facility] DATE CREATED AUTHOR AUTHOR'S ORGANIZ ATION 01/19/2024 [facility] DATE CREATED AUTHOR AUTHOR'S ORGANIZ ATION 04/11/2024 [facility] DATE CREATED AUTHOR AUTHOR'S ORGANIZ ATION 06/13/2024 [facility] DATE CREATED AUTHOR AUTHOR'S ORGANIZ ATION 07/12/2024 [facility] Patient Care team informatio n (unrecognized section [...] May 19, 2024 End: May 19, 2024 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 Start Date End Date Hafsa Knowles MD [address] [place] [address] PCP - General Family Medicine 06/01/21 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 Start Date End Date Hafsa Knowles MD [address] [place] [address] PCP - General Family Medicine 06/01/21 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 Start Date End Date Hafsa Knowles MD [address] [place] [address] PCP - General Family Medicine 06/01/21 REASON FOR VISIT (unrecogniz ed section and content) Reason Comments new patient - right leg pain after cellu litis Specialty Diagnoses / Procedures Referred By Mara t Referred To Contact Vascular Surgery Diagnoses Right leg pain Phlebitis and thrombophlebitis of unspecified site Hafsa Knowles MD [address] [place] [address] Phone: tel: fax: [facility] [address] [place] [address] Phone: tel:[phone] fax: Referral ID Status Reason Start Date Expiration Date Visits Requested Visits Authorized [id number] Pending Review Specialty Services Required 05/20/2024 05/20/2025 [...] BE BASED ON THE PRIMARY CLINICAL RECORDS. [employer] provides no warranty or guarantee of the accuracy or completeness of information in this document.
--- NOTE | 2024-07-13 11:31 | P.DS_ITS ---
Discharge Plan Discharge Disposition: Home, Self-Care Outpatient Diagnostics: VC INJ Foam Sclerosant WESLEY RESTAURANT CREW (Routine) Timeframe: 2 Weeks Facility: [facility] - Location: [facility] Ordered By: Blanco Sullivan Follow Up Appointments: 07/16/23 Print Language: Greenlandic
--- NOTE | 2024-07-13 11:31 | W.VEIN ---
Discharge Plan Discharge Disposition: Home, Self-Care Outpatient Diagnostics: VC INJ Foam Sclerosant WESLEY TOOL MARKER (Routine) Timeframe: 2 Weeks Facility: [facility] - Location: [facility] Ordered By: Blanco Sullivan Follow Up Appointments: 07/16/23 Print Language: Upper Sorbian
== END 2024-07-13 11:32 | disposition home or self-care (01) ==
PROVIDERS: PCP Radiology Diagnostic Radiology; Visit Provider Radiology Diagnostic Radiology
DX: I80.02 Phlebitis and thrombophlebitis of superficial vessels of left lower extremity (principal)
CPT/HCPCS: 93971; G0463

== ENCOUNTER 2024-07-16 13:53 | Outpatient (OUT) | payer MEDICARE, OTHER, SELFPAY ==
--- NOTE | 2024-07-14 11:53 | V.VEINS.HP ---
Vital Signs 07/16/24 14:15 BP 136/70 BP Location Right Brachial BP Position Sitting BP Cuff Size Large Adult BP Source Manual Cuff Respiration 18 Pulse 72 Pulse Source Monitor Pulse Oximetry (%) 96 Oxygen Delivery Method Room Air Comment The patient's blood pressure is elevated. Varicose Veins Patient in today for microfoam chemical ablation right leg Quentin Michel MD personally performed the services described in this documentation, as scribed by Saeid Godinez RN in my presence and it is both accurate and complete. ISaeid RN, am scribing for, and in the presence of, Dr. Quentin Hernandez and in the presence of the patient. thigh: bilateral, knee: bilateral, calf: bilateral, ankle: bilateral and anderson: bilateral aching, sharp and tender 3 8 weeks Worsened in recent months: Yes standing analgesics, elevating extremities and compression stockings Reports erythema, bruising, heaviness, limb pain, edema and leg edema History of lower extremity trauma: No Superficial thrombophlebitis: Yes Family history of varicose veins: yes Has patient had previous lower extremity venous surgery: No Patient has previously received the following treatment(s) for lower extremity varicose veins: Reports none Does patient have a history of : yes Does patient intend to have future pregnancies: no Has patient had lower extremity venous scan with relux testing: Yes Support hose used: Yes Problems walking or doing physical activity: Yes How does it affect you: Unable to stand for long periods of time Do you walk much: Yes Do you stand much: Yes Review of Systems ROS Narrative Quentin Michel MD personally performed the services described in this documentation, as scribed by Saeid Godinez RN in my presence and it is both accurate and complete. Saeid Michel RN, am scribing for, and in the presence of, Dr. Quentin Hernandez and in the presence of the patient. Status of ROS 10 or more systems reviewed and unremarkable except as noted in history and below Cardiovascular Reports: edema and swelling of feet/ankles Musculoskeletal Reports: extremity pain, extremity swelling, joint pain, joint swelling and muscle cramps Integumentary/Breast Reports: itching, redness, skin pain, skin tenderness, skin swelling and sores [facility] Medical History (Updated 07/08/24 @ 10:56 by Maryan Mcwilliams MD) Phlebitis and thrombophlebitis of superficial vessels of right lower extremity ?I80.01 - Phlebitis and thrombophlebitis of superficial vessels of right lower extremity (ICD-10) Phlebitis and thrombophlebitis of superficial vessels of left lower extremity ?I80.02 - Phlebitis and thrombophlebitis of superficial vessels of left lower extremity (ICD-10) Pain due to varicose veins of both lower extremities ?I83.813 - Varicose veins of bilateral lower extremities with pain (ICD-10) Raynaud disease ?I73.00 - Raynaud's syndrome without gangrene (ICD-10) Arthritis ?M19.90 - Unspecified osteoarthritis, unspecified site (ICD-10) History of ITP (1989) ?Z86.2 - Personal history of diseases of the blood and blood-forming organs and certain disorders involving the immune mechanism (ICD-10) History of blood transfusion ?Z92.89 - Personal history of other medical treatment (ICD-10) Thyroid cyst ?E04.1 - Nontoxic single thyroid nodule (ICD-10) Phlebitis ?I80.9 - Phlebitis and thrombophlebitis of unspecified site (ICD-10) Varicose vein of leg ?I83.90 - Asymptomatic varicose veins of unspecified lower extremity (ICD-10) Knee pain ?M25.569 - Pain in unspecified knee (ICD-10) Seasonal allergic rhinitis ?J30.2 - Other seasonal allergic rhinitis (ICD-10) Cataracts, bilateral ?H26.9 - Unspecified cataract (ICD-10) Hyperparathyroidism ?E21.3 - Hyperparathyroidism, unspecified (ICD-10) Renal cyst ?N28.1 - Cyst of kidney, acquired (ICD-10) Osteopenia ?M85.80 - Other specified disorders of bone density and structure, unspecified site (ICD-10) Vitamin D deficiency ?E55.9 - Vitamin D deficiency, unspecified (ICD-10) Chronic UTI ?N39.0 - Urinary tract infection, site not specified (ICD-10) Genu varum of right lower extremity ?M21.161 - Varus deformity, not elsewhere classified, right knee (ICD-10) Primary osteoarthritis of right knee ?M17.11 - Unilateral primary osteoarthritis, right knee (ICD-10) Surgical History (Updated 07/16/24 @ 15:10 by Saeid Godinez) S/P sclerotherapy of varicose veins ?Z98.890 - Other specified postprocedural states (ICD-10) ?Z86.79 - Personal history of other diseases of the circulatory system (ICD-10) Status post laser ablation of incompetent vein ?Z98.890 - Other specified postprocedural states (ICD-10) Status post laser ablation of incompetent vein ?Z98.890 - Other specified postprocedural states (ICD-10) Status post laser ablation of incompetent vein ?Z98.890 - Other specified postprocedural states (ICD-10) History of colonoscopy ?Z98.890 - Other specified postprocedural states (ICD-10) H/O knee surgery ?Z98.890 - Other specified postprocedural states (ICD-10) H/O breast biopsy ?Z98.890 - Other specified postprocedural states (ICD-10) History of cholecystectomy ?Z90.49 - Acquired absence of other specified parts of digestive tract (ICD-10) H/O oophorectomy H/O parathyroidectomy ?Z98.890 - Other specified postprocedural states (ICD-10) ?Z90.89 - Acquired absence of other organs (ICD-10) History of hysterectomy ?Z90.710 - Acquired absence of both cervix and uterus (ICD-10) H/O tubal ligation ?Z98.51 - Tubal ligation status (ICD-10) H/O splenectomy (1989) ?Z90.81 - Acquired absence of spleen (ICD-10) S/P arthroscopic knee surgery ?Z98.890 - Other specified postprocedural states (ICD-10) Family History (Updated 06/16/24 @ 10:21 by Hilda Reyes RN) Mother Varicose veins of bilateral lower extremities with pain Father Family history of myocardial infarction Other Cancer Family history of DVT Family history of cancer Social History (Updated 05/01/24 @ 08:31 by Francesca Zavala NP) Within the past year, how often did you have a drink containing alcohol: never Score interpretation: A score less than 3 is consistent with normal alcohol consumption. 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 Highest level of school completed/degree received: some college, no degree Little interest or pleasure in doing things: not at all Feeling down, depressed, or hopeless: not at all Meds Home Medications and Allergies Home Medications ?Medication ?Instructions ?Recorded ?Confirmed ?Type biotin 5 mg capsule 5 mg PO DAILY 05/01/24 06/16/24 History cholecalciferol (vitamin D3) 125 125 mcg PO DAILY 05/01/24 06/16/24 History mcg (5,000 unit) capsule cranberry 500 mg capsule 500 mg PO DAILY 05/01/24 06/16/24 History d-mannose 500 mg capsule mg PO 05/01/24 History estradiol 0.01% (0.1 mg/gram) 0.5 appful vaginal .twice a week 05/01/24 06/16/24 History vaginal cream loratadine 10 mg capsule 10 mg PO DAILY 05/01/24 06/16/24 History [id number]-[id number] 30 mg-folic cap PO 06/16/24 History acid 1 mg-dss 50 mg-dha 260 mg capsule cephalexin 500 mg capsule 500 mg PO BID #10 caps 07/08/24 Rx tamsulosin 0.4 mg capsule (Flomax) 0.4 mg PO DAILY #7 caps 07/08/24 Rx tramadol 50 mg tablet 50 mg PO Q8H PRN pain 2 days #6 07/08/24 07/13/24 Rx tabs Allergies Allergy/AdvReac Type Severity Reaction Status Date / Time codeine AdvReac Nausea Verified 05/01/24 08:26 Exam Narrative Exam Narrative: Quentin Michel MD personally performed the services described in this documentation, as scribed by Saeid Godinez RN in my presence and it is both accurate and complete. Saeid Michel RN, am scribing for, and in the presence of, Dr. Quentin Hernandez and in the presence of the patient. Constitutional Documenting provider has reviewed patient's vital signs: yes Common normals: oriented x3 Nutritional appearance: overweight Lymph Lymphatic: no lymphedema noted Cardio Peripheral pulses: posterior tibial pulses present and dorsalis pedis pulses present Extremity General: calf tenderness, edema and other findings Right lower extremity: lower leg Right lower leg: inspection and palpation Left lower extremity: lower leg Left lower leg: inspection and palpation Neuro Common normals: oriented x3 Assessment and Plan Assessment and Plan (1) Pain due to varicose veins of both lower extremities: Plan f/u evaluation with physician along with right leg limted u/s Quentin Michel MD personally performed the services described in this documentation, as scribed by Saeid Godinez RN in my presence and it is both accurate and complete. I, Saeid Godinez RN, am scribing for, and in the presence of, Dr. Quentin Hernandez and in the presence of the patient. Procedures Procedure Instructions Procedures leg microfoam chemical ablation/Varithena: Risks and benefits of the procedure were discussed at length and informed written consent was obtained.? Time-out procedure was performed and the correct patient and procedure were confirmed.? Staff present during time-out: aSeid Godinez RN and Quentin Hernandez MD.? Patient prepped and procedure performed in usual sterile fashion.? Patient was placed in Trendelenburg prior to Polidocanol/Varithena injections. Sclerosing Agent:?? 15cc 1% Polidocanol/Varithena Site Injected: Right lecc varithena administered in to a 5mm varicose vein distal GSV at the level of the ankle 5cc varithena administered in to a 4mm varicose vein anterior proximal right lower leg 3cc varithena administered in to a 4mm varicose vein anterior proximal right lower leg Number of Injections:? 3 The patient tolerated the procedure well without complication.? Hemostasis was obtained and thigh-high compression stocking was applied with foam pads.? Instructed patient to wear stocking for at least 96 hours and sleep with it and only remove for showering.? The patient was instructed to? wear stocking for 2 weeks.? Patient verbalizes understanding and states they will comply.? Patient was given post-procedure instructions. Patient was discharged in good condition.? Scheduled to undergo limited venous ultrasound and? exam on 07/20/2024.
--- NOTE | 2024-07-14 11:57 | W.VEIN ---
Discharge Plan Discharge Disposition: Home, Self-Care Outpatient Diagnostics: VC Facility EST LMTD (Routine) Timeframe: 2 Weeks Facility: [facility] - Location: [facility] Ordered By: Quentin Hernandez VC EXT Venous RT LMTD (Routine) Timeframe: 2 Weeks Facility: [facility] - Location: Vein Center Ordered By: Quentin Hernandez Follow Up Appointments: 07/20/2024 Plan of Treatment: f/u evaluation with physician along with right leg limited u/s Patient Instructions: Polidocanol (By injection) (Gianna Garcia) Print Language: Burkinan Discharge Date/Time: 07/16/24 15:06
--- NOTE | 2024-07-16 13:55 | VEIN_ITS ---
[address] [address] Patient Name: BHAVESH MONTEIRO MRN: [id number] date: 1945 Sex: F Assigned Patient Location: Current Patient Location: Accession/Order Number: [id number] Exam Date: 07/16/2024 13:55 Report Date: 07/16/2024 15:01 At the request of: DARIO BESS Procedure: VC INJ Foam Sclerosant WUS DRYWALL STRIPPER PROCEDURE: VC INJ Foam Sclerosant WUS DRYWALL STRIPPER COMPARISON: None. HISTORY: I83.813 - Varicose veins of bilateral lower extremities w... Pre-operative Diagnosis: CEAP class C4a venous insufficiency with pain, tenderness, edema and incompetent right saphenous and varicose vein(s), chronic venous insufficiency right leg secondary to venous incompetence Post-operative Diagnosis: : CEAP class C4a venous insufficiency with pain, tenderness, edema and incompetent right saphenous and varicose vein(s), chronic venous insufficiency right leg secondary to venous incompetence Procedure Performed: 1. Ultrasound-guided microfoam chemical ablation with Varithenaregistered 2. Intraoperative ultrasound guidance Anesthesia: None Indications for Procedure: 79-year-old female who presents with a long history of lower extremity pain swelling and varicose veins culminating in hemosiderin staining. The patient failed conservative medical therapy including medical compression stockings, exercise and analgesics. Prior procedures include endovenous laser ablation and Microfoam chemical ablation. Multiple incompetent varicosities of the right leg. Duplex scan showed reflux and enlarged diameters up to 5 mm. The patient underwent informed consent including management options where the complications of infection, bleeding, pain, and skin injury were discussed. Particular attention was spent discussing thrombus extension and deep vein thrombosis as well as the possibility of pulmonary embolus and treatment with oral or injectable blood thinners. Procedure: The patient walked to the procedure room. All applicable staff donned appropriate apparel. A procedure timeout was performed to confirm correct patient, correct extremity, correct procedure, and correct room set-up including presence of all applicable supplies, devices, and drugs. A duplex ultrasound, performed by myself confirmed the location and incompetence of branch saphenous varicosities and their course was marked on the skin together with the dilated tributaries. The extent of treatment of the vein and the associated varicosities was determined through ultrasound mapping. The skin was prepped and then punctured with a butterfly needle and advanced under ultrasound guidance. The Varithenaregistered canister was activated and the canister was primed and purged as required in the instructions for use. Varithenaregistered was drawn into a sterile syringe. Following injections were made: 7 cc injected into an incompetent 5 mm distal right great saphenous vein at the level of the ankle. 5 cc injected into a 4 mm varicose vein anterior proximal right lower leg 3 cc injected into a 4 mm varicose vein posterior proximal medial right lower leg Varithenaregistered was slowly administered at 0.5-1.0 cc/second with close observation by ultrasound of its course in the vessels. Total volume utilized was: 15cc. Following administration of Varithenaregistered the leg was elevated and the patient was asked to repeatedly dorsiflex the ankle to limit flow of Varithenaregistered into perforating veins. Once appropriate spasm had been confirmed in the treated veins, the vascular catheter was removed from the leg and light pressure was applied over the puncture site for hemostasis. The common femoral and deep superficial veins were then evaluated for flow and compressibility prior to dressing placement. The lower extremity was kept elevated at 45 degrees above the horizontal and cording material was applied over the saphenous segments and tributaries to allow for eccentric compression over the target vessels including the targeted saphenous vein(s). A multilayer dressing was applied consisting of foam pads, coban and thigh-high 20-30 mm Hg compression elastic support hose were placed on the patient. The leg was lowered only after compression had been applied and the patient was immediately ambulatory. The patient ambulated 10 minutes under supervision and was without apparent concerns at time of release. Post-care instructions include advising patient to keep post-treatment bandages in place and dry for 48 hours, avoid extended periods of inactivity, avoid heavy exercise for one week, wear compression stockings on the treated leg continuously for two weeks, to walk daily for 10 minutes over the next month. The patient was instructed to take an anti-inflammatory medicine as needed and to follow up for color duplex scan of the Saphenous veins, the treated branch saphenous varicosities, the adjacent deep veins, and additional treatment within 7 days. PERSONNEL: Saeid Godinez RN Electronically authenticated by: CARLO RICHARDSON Date: 07/16/2024 15:01
--- OUTSIDE RECORDS SUMMARY | 2024-07-16 13:58 | XMS_ITS | CCD ---
Author Organization [facility] Care Team Providers Care 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 Name Role Phone HAFSA KNOWLES Primary Care [...] UnavailHafsa Hernandez Unavailable Katie Almonte Attending Unavailable aKtie Almonte Attending Unavailable Katie Almonte Attending Unavailable Katie Almonte Admitting Unavailable Johny Perdomo DO Attending UnavailJohny Wallace DO Attending Hafsa Stoner MD Primary Care Hafsa Lan MD Primary Care Provider ZAIDA CHILD Attending Unavailable HAFSA KNOWLES Referring HAFSA Salas Primary Care Unavailable Maryan Mcwilliams Attending Unavailable Maryan Mcwilliams Admitting Unavailable Allergies Allergy Classification Reported Allergen(s) Allergy Type Date of Onset Reaction(s) Facility (16 sources) Codeine; Translations: [codeine] Drug Allergy 12-26-19 16 Nausea [facility] (1 source) Codeine Drug Allergy [facility] Repository (2 sources) Acetaminophen / HYDROcodone Drug Allergy Unknown [facility] Other (2 sources) Codeine Drug Allergy Unknown [facility] Other (2 sources) patient allergy list reviewed by nurse or physicia Propensity to adverse reactions 04-29-20 15 Comment:Done [facility] Other (2 sources) Allergies Reconciled Propensity to adverse reactions Unknown [facility] Other (5 sources) Acetaminophen; Translations: [acetaminophen] Drug Allergy 01-24-20 24 [facility] (5 sources) HYDROcodone; Translations: [hydrocodone] Drug Allergy 01-24-20 [facility] (1 source) Codeine Drug Allergy 05-19-20 [facility] Repository Medications Current Medications Medication Drug [...] mouth. Active take 1 capsule by mo [facility] once daily Biotin 5000 5 MG [...] 2 times per week after for maintenance., [facility], 168, cm, 01/15/24 10:54:00 EDT, Height/Length Dosing, 96, kg, 01/15/24 10:54:00 EDT, Weight Dosing Start Date: 01/15/24 Status: Ordered Start: 08-22-2022 Estrace 0.1 mg /g Cream See Instructions, 42.5 gm, Refill(s) 6, Apply pea-sized amound around the opening of the urethra 3 times per week for 1 month then 2 times per week after for maintenance., [employer] [facility], 168, cm, 08/22/22 11:52:00 EST, Height/Length [...] given by office. Patient was given a [employer] coupon voucher to use, this is not to be ran through patients insurance. 24 tablet 07/18/2022 Active sulfamethoxazole 800 mg / trimethoprim 160 mg oral tablet (3 sources) Dihydrofolate Reductase Inhibitor Antibacterial, Sulfonamide Antimicrobial Start: 05-08-2024 take 1 tablet by mouth twice daily Sulfamethoxazole-Trimethoprim Active 1 TAB PO Twice daily May 07, 2024 11:00pm Start: 06-25-2023 [facility] Bactrim DS 800-160 MG 1 tablet Orally Twice a day for 10 day(s) Jun, Active Vitamin D-3 1000 UNIT (2 sources) take 1 capsule by mo [facility] once daily Vitamin D-3 1000 UNIT [...] 2:53pm Start: 12-05-2021 take 1 capsule by [facility] every twelve hours Keflex 500 mg Cap 500 mg = 1 cap(s), Oral, q12hr, # 6 cap(s), Refills(s) 0, Pharmacy: [facility], 168, cm, 12/05/21 10:16:00 EDT, Height/Length [...] Start: 09-05-2020 take 1 capsule by mo [facility] once daily Omeprazole 40 MG Omeprazole [...] negative bacilli - 2 Days PERFORMED BY: [place] [address] PATHOLOGIST ESCROW AGENT ZAIDA Sumner [facility] Comment on above: Performed By: #### C UU #### [address] Activated partial thrombopla stin time (aPTT) in platelet poor plasma by coagulation aon 05-01-2024 aPTT Coag (PPP) [Time] 30.5 s 22.3-36.2 Fi [facility] Basophils Auto (Bld) [#/Vol] on 05-01-2024 Basophils (Bld) [#/Vol] 0.0 10 3/uL 0.0-0.1 [facility] Basophils/100 WBC Auto (Bld) on 05-01-2024 Basophils/100 WBC (Bld) 0.7 % 0.2-2.0 [facility] Eosinophils/100 WBC Auto (Bl d)on 05-01-2024 Eosinophils/100 WBC (Bld) 3.8 % 0.9-7.0 [facility] Erythrocyte distribution wid th Auto (RBC) [Ratio]on 05-01-2024 Erythrocyte distribution width (RBC) [Ratio] 14.4 % 11.0-15.0 [facility] Estimated glomerular filtrat ion rate (GFR) non- Americanon 05-01-2024 GFR/1.73 sq M.predicted among non-blacks MDRD (S/P/Bld) [Vol rate/Area] 51 mL/min/{1.73_m2} Low >=60 mL/min/1.73m 2 [facility] Globulin Calc (S) [Mass/Vol] on 05-01-2024 Globulin (S) [Mass/Vol] 4.3 g/dL [facility] Hematocrit Auto (Bld) [Volum e fraction]on 05-01-2024 Hematocrit (Bld) [Volume fraction] 39.1 % 36.0-48.0 [facility] Hemoglobin [Mass/volume] in Bloodon 05-01-2024 Hemoglobin (Bld) [Mass/Vol] 13.1 g/dL 12.0-16.0 [facility] INR in Platelet poor plasma by Coagulation assayon 05-01-2024 INR Coag (PPP) [Relative time] 1.07 {INR} [facility] Comment on above: DESIRED INR:2.0-3.0 CONDITIONS NOT LISTED BELOW2.5-3.5 FOR PROSTHETIC HEART VALVE REPLACEMENT2.5-3.5 RECURRENT THROMBOSIS Laboratory - Chemistry and C hemistry - challengeon 05-01-2024 Bilirubin Ql (U) Negative NEGATIVE [facility] Glucose (U) [Mass/Vol] Negative NEGATIVE [facility] Ketones Ql (U) Negative NEGATIVE [facility] pH (U) 6.0 [pH] 5.0-9.0 [facility] Specific gravity (U) [Rel density] 1.020 1.005-1.025 [facility] Urobilinogen Qn (U) 0.2 {Diana'U}/dL 0.2-1.0 [facility] Albumin [Mass/Vol] 2.9 g/dL Low 3.4-5.0 [facility] ALP [Catalytic activity/Vol] 196 U/L High 46-116 [facility] ALT [Catalytic activity/Vol] 44 U/L 14-59 [facility] AST [Catalytic activity/Vol] 51 U/L High 15-37 [facility] Bilirubin [Mass/Vol] 0.7 mg/dL 0.2-1.[address] [facility] Bilirubin.direct [Mass/Vol] 0.2 mg/dL 0.0-0.2 [facility] Calcium [Mass/Vol] 9.1 mg/dL 8.5-10.1 [facility] Chloride [Moles/Vol] 107 mmol/L 98-[address] [facility] CO2 [Moles/Vol] 25.8 mmol/L 21.0-32.0 [facility] Creatinine [Mass/Vol] 1.05 mg/dL High 0.55-1.02 [facility] GFR/1.73 sq M.predicted MDRD (S/P/Bld) [Vol rate/Area] mL/min/{1.73_m2} >=60 mL/min/1.73m 2 [facility] Glucose [Mass/Vol] 84 mg/dL 74-106 [facility] Potassium [Moles/Vol] 3.7 mmol/L 3.5-5.1 [facility] Protein [Mass/Vol] 7.2 g/dL 6.4-8.2 [facility] Sodium [Moles/Vol] 143 mmol/L 136-145 [facility] Urea nitrogen [Mass/Vol] 20.0 mg/dL High 7.0-18.0 [facility] Urea nitrogen/Creatinine [Mass ratio] 19.0 mg/mg [facility] Laboratory - Hematology and Cell countson 05-01-2024 Immature granulocytes/100 WBC (Bld) 0.2 % 0.0-0.5 [facility] Laboratory - Specimen inform ationon 05-01-2024 Appearance (U) CLEAR CLEAR [facility] Color (U) YELLOW YELLOW [facility] Laboratory - Urinalysison Leukocyte esterase Test strip Ql (U) Negative NEGATIVE [facility] Nitrite Ql (U) Negative NEGATIVE [facility] Protein Ql (U) Negative NEG/TRACE [facility] Leukocytes [#/volume] correc reji for nucleated erythrocytes in Blood by Automated counon 05-01-2024 WBC corrected for nucl RBC Auto (Bld) [#/Vol] 4.5 10 3/uL 4.0-11.0 [facility] Lymphocytes Auto (Bld) [#/Vo l]on 05-01-2024 Lymphocytes (Bld) [#/Vol] 2.0 10 3/uL 1.2-3.8 [facility] Lymphocytes/100 WBC Auto (Bl d)on 05-01-2024 Lymphocytes/100 WBC (Bld) 43.8 % 20.5-60.0 [facility] MCH Auto (RBC) [Entitic mass ]on 05-01-2024 MCH (RBC) [Entitic mass] 34.5 pg High 26.7-34.0 [facility] MCHC Auto (RBC) [Mass/Vol]on 05-01-2024 MCHC (RBC) [Mass/Vol] 33.5 g/dL 29.9-35.2 [facility] MCV Auto (RBC) [Entitic vol] on 05-01-2024 MCV (RBC) [Entitic vol] 102.9 fL High 81.0-99.0 [facility] Monocytes Auto (Bld) [#/Vol] on 05-01-2024 Monocytes (Bld) [#/Vol] 0.6 10 3/uL 0.3-0.8 [facility] Monocytes/100 WBC Auto (Bld) on 05-01-2024 Monocytes/100 WBC (Bld) 13.8 % High 1.7-12.0 [facility] Neutrophils Auto (Bld) [#/Vo l]on 05-01-2024 Neutrophils (Bld) [#/Vol] 1.7 10 3/uL 1.4-6.5 [facility] Neutrophils/100 WBC Auto (Bl d)on 05-01-2024 Neutrophils/100 WBC (Bld) 37.7 % Low 43.0-75.0 [facility] No Panel Informationon 05-01 Urine Microscopic Review NO [facility] Urine Occult Blood Negative NEGATIVE [facility] Eosinophils # (Auto) 0.2 10 3/uL 0.0-0.7 [facility] Immature Granulocyte # (Auto) 0.01 10 3/uL 0.00-0.03 [facility] No Panel InformationOrdered By: Johny Perdomo on 05-01-2024 MRSA Screening Culture [facility] Platelet mean volume Auto (B ld) [Entitic vol]on 05-01-2024 Platelet mean volume (Bld) [Entitic vol] 12.6 fL 9.5-13.5 [facility] Platelets Auto (Bld) [#/Vol] on 05-01-2024 Platelets (Bld) [#/Vol] 266 10 3/uL 150-450 [facility] Prothrombin time (PT)on 04-14 PT Coag (PPP) [Time] 11.3 s 9.0-11.[address] [facility] RBC Auto (Bld) [#/Vol]on RBC (Bld) [#/Vol] 3.80 10 6/uL Low 4.20-5.40 [facility] Serum or plasma albumin/glob ulin mass ratioon 05-01-2024 Albumin/Globulin [Mass ratio] 0.7 {ratio} [facility] Serum or plasma anion gap de terminationon 05-01-2024 Anion gap [Moles/Vol] 13.9 mmol/L [facility] C Urineon 01-19-2024 Bacteria identified Cx [...] Locations R1: This test was performed at: [facility], [address] [place] [address], [phone]- , , Normal [facility] Comment on above: Performed By: #### 2 [id number] #### [facility] [address] [place] [address] Ambulatory Visit Summaryon 0 01-15-2024 Ambulatory Visit [...] URL, URO When: Where: [address] [place] [address]- [phone] Medications What How Much When Instructions Unchanged estradiol topical (Estrace 0.1 mg/ g Cream) See instructions Apply pea-sized amound around the opening of the urethra 3 times per week for 1 month then 2 times per week after for maintenance. Pickup at [facility] Unchanged biotin (biotin 5000 mcg oral capsule) Contact prescribing physician if questions or concerns Unchanged cholecalciferol (Vitamin D3 5000 intl units oral capsule) 1 Capsules By Mouth Every day with food Contact prescribing physician if questions or concerns Unchanged fexofenadine (Mary) By Mouth Contact prescribing physician if questions or concerns Pharmacy Information [facility]: [address] [place] [phone] Allergies codeine (nausea) Problems Ongoing - Any [...] to (more content not included)... Normal [facility] Urology Office/Clinic Noteon 01-15-2024 Urology Office/Clinic [...] Information Gage JACOB, Katie Arteaga, URL, URO [address], [place] [phone] Additional Instructions: pt's choice on when to [...] Osteopeni (more content not included)... Normal [facility] Comment on above: Result Comment: Elec tronically Signed By: Katie Almonte MD\.br\Date and Time Signed: 01/15/24 23:28 EDT\.br\Electronically Co-Signed By: Yuliana Olson\.br\Date and Time Co-Signed: 01/15/24 11:27 EDT [place] 02-21-2023 Screens [id number] Normal [facility] Patient Educationon 02-21-20 23 Patient Education [...] these instructions at home: Medicines ? Take [id number]-[id number] and prescription medicines only as told by [...] provider. Document Revised: 02/10/2021 Document Reviewed: 02/10/2021 [employer] Patient Education ? 2022 [employer] [facility] Urology Office/Clinic Noteon 02-20-2023 Urology [...] exam (more content not included)... Normal [facility] Comment on above: Result Comment: Elec tronically Signed By: Katie Almonte MD\.br\Date and Time Signed: 02/20/23 12:03 EDT\.br\Electronically Co-Signed By: Sepideh Perez\.br\Date and Time Co-Signed: 02/20/23 11:49 EDT Covid-19 PCR (CVDTB)on 07-15 SARS-CoV-2 (COVID-19) RNA AZUL+probe Ql (Unsp spec) Not detected Normal NOT DETECTED [facility] Comment on above: Result Comment: This test is not yet approved or cleared by the [place] FDA. When there are no FDA-approved or cleared tests available, and other criteria are met, FDA can make tests available under an emergency access mechanism called an Emergency Use Authorization (EUA). The EUA for this test is supported by the [place] of Health and Human Service's (HHS's) declaration [...] SARS-CoV-2. Performed By: #### C VDTBH #### [facility] [address] [place] [address] Dr. Manjula Arzate CREATININEon 06-13-2022 Creatinine [Mass/Vol] 0.98 mg/dL Normal 0.55-1.02 [facility] Comment on above: Performed By: #### C JESUS #### [facility] [address] [place] [address] Dr. Manjula Arzate EGFR-AF VINCENTIAN >60 Normal >=60 [facility] Comment on above: Performed By: #### C JESUS #### [facility] [address] [place] [address] Dr. Manjula Arzate EGFR-NON AF VINCENTIAN 55 mL/min/1.73m2 Critically low >=60 [facility] Comment on above: Performed By: #### C JESUS #### [facility] [address] ABD/PELV W CONon [...] DARIO BESS Date: 2022-06-13 17:40 Normal [facility] CT ABD/PELVIS WO CONon 11-27 CT [...] by: DARIO BESS Date: 2021-11-27 10:41 Normal [facility] Vital Signs Date Time Vital Sign Value Performing Clinician Facility 06-10-2024 15:24-0500 Body height 167.6 cm Zaida Child MD Work Phone: [facility] 06-10-2024 15:24-0500 Body mass index (BMI) [Ratio] 32.28 kg/m2 Zaida Child MD Work Phone: [facility] 06-10-2024 15:240500 Body weight 90.72 kg Zaida Child MD Work Phone: [facility] 06-10-2024 15:24-0500 Diastolic blood pressure 84 mm[Hg] Zaida Child MD Work Phone: [facility] 06-10-2024 15:24-0500 Systolic blood pressure 132 mm[Hg] Zaida Child MD Work Phone: [facility] 05-28-2024 11:08-0500 Body height 167.6 cm Zaida Child MD Work Phone: [facility] 05-28-2024 11:08-0500 Body mass index (BMI) [Ratio] 33.09 kg/m2 Zaida Child MD Work Phone: [facility] 05-28-2024 11:08-0500 Body temperature 97.39 [degF] Zaida Child MD Work Phone: [facility] 05-28-2024 11:08-0500 Body weight 92.99 kg Zaida Child MD Work Phone: [facility] 05-28-2024 11:08-0500 Diastolic blood pressure 84 mm[Hg] Zaida Child MD Work Phone: [facility] 05-28-2024 11:08-0500 Heart rate 72 /min Zaida Child MD Work Phone: [facility] 05-28-2024 11:08-0500 SaO2% (BldA) [Mass fraction] 97 % Zaida Child MD Work Phone: [facility] 05-28-2024 11:08-0500 Systolic blood pressure 146 mm[Hg] Zaida Child MD Work Phone: [facility] 05-19-2024 11:18-0500 Body height 165.1 cm [facility] 05-19-2024 11:18-0500 Body mass index (BMI) [Ratio] 33.1 kg/m2 [facility] 05-19-2024 11:18-0500 Body weight 90.26 kg [facility] 05-19-2024 11:18-0500 Diastolic blood pressure 76 mm[Hg] [facility] 05-19-2024 11:18-0500 Heart rate 91 /min [facility] 05-19-2024 11:18-0500 Systolic blood pressure 114 mm[Hg] [facility] 05-07-2024 14:39-0400 Body height 165.1 cm [facility] 05-07-2024 14:39-0400 Body mass index (BMI) [Ratio] 33.7 kg/m2 [facility] 05-07-2024 14:39-0400 Body weight 92.07 kg [facility] 05-07-2024 14:39-0400 Diastolic blood pressure 79 mm[Hg] [facility] 05-07-2024 14:39-0400 Heart rate 76 /min [facility] 05-07-2024 14:39-0400 Systolic blood pressure 116 mm[Hg] [facility] 04-29-2024 08:21-0400 Body height 165.1 cm [facility] 04-29-2024 08:21-0400 Body mass index (BMI) [Ratio] 33.8 kg/m2 [facility] 04-29-2024 08:21-0400 Body weight 92.3 kg [facility] 04-29-2024 08:21-0400 Diastolic blood pressure 82 mm[Hg] [facility] 04-29-2024 08:21-0400 Heart rate 74 /min [facility] 04-29-2024 08:21-0400 Respiratory rate 16 /min [facility] 04-29-2024 08:21-0400 SaO2% (BldA) [Mass fraction] 96 % [facility] 04-29-2024 08:21-0400 Systolic blood pressure 120 mm[Hg] [facility] 01-24-2024 10:54-0400 Body height 165.1 cm [facility] 01-24-2024 10:54-0400 Body mass index (BMI) [Ratio] 35.6 kg/m2 [facility] 01-24-2024 10:54-0400 Body weight 97.06 kg [facility] 01-24-2024 10:54-0400 Diastolic blood pressure 81 mm[Hg] [facility] 01-24-2024 10:54-0400 Heart rate 71 /min [facility] 01-24-2024 10:54-0400 Systolic blood pressure 121 mm[Hg] [facility] 01-15-2024 10:37-0400 Blood Pressure Location Katie Lue [facility] 01-15-2024 10:37-0400 Body temperature 97.88 [degF] Katie Lue [facility] 01-15-2024 10:37-0400 Diastolic blood pressure 78 mm[Hg] Katie Lue [facility] 01-15-2024 10:37-0400 Heart rate 71 /min Katie Lue [facility] 01-15-2024 10:37-0400 Systolic blood pressure 132 mm[Hg] Katie Lue [facility] 02-20-2023 10:53-0400 Blood Pressure Location Katie Lue [facility] 02-20-2023 10:53-0400 Diastolic blood pressure 76 mm[Hg] Katie Lue [facility] 02-20-2023 10:53-0400 Heart rate 68 /min Katie Lue [facility] 02-20-2023 10:53-0400 Respiratory rate 16 /min Katie Lue [facility] 02-20-2023 10:53-0400 Systolic blood pressure 130 mm[Hg] Katie Lue [facility] 08-22-2022 11:50-0500 Blood Pressure Location Katie Lue [facility] 08-22-2022 11:50-0500 Diastolic blood pressure 78 mm[Hg] Katie Lue [facility] 08-22-2022 11:50-0500 Heart rate 68 /min Katie Lue [facility] 08-22-2022 11:50-0500 Respiratory rate 16 /min Katie Lue [facility] 08-22-2022 11:50-0500 Systolic blood pressure 132 mm[Hg] Katie Lue [facility] 12-05-2021 10:33-0400 Diastolic blood pressure 81 mm[Hg] Mally Key Jr. [facility] 12-05-2021 10:33-0400 Mean blood pressure 101 mm[Hg] Mally Key Jr. [facility] 12-05-2021 10:33-0400 Systolic blood pressure 142 mm[Hg] Mally Key Jr. [facility] 12-05-2021 10:12-0400 Blood Pressure Location Mally Key Jr. [facility] 12-05-2021 10:12-0400 Diastolic blood pressure 97 mm[Hg] Mally Key Jr. [facility] 12-05-2021 10:12-0400 Heart rate 87 /min Mally Key Jr. [facility] 12-05-2021 10:12-0400 Respiratory rate 16 /min Mally Key Jr. [facility] 12-05-2021 10:12-0400 Systolic blood pressure 163 mm[Hg] Mally Key Jr. [facility] Encounters Encounter Date Encounter Type Care Provider Facility Start: 07-08-2024 End: 07-08-2024 ambulatory [facility] Facility:[facility] Start: 06-10-2024 End: 06-10-2024 Office outpatient visit 15 minutes Zaida Child MD Work Phone: [facility] Comment on above: Superficial phlebiti s and thrombophlebitis of right lower extremity (Primary Dx); Varicose veins of bilateral lower extremities with pain Start: 06-10-2024 End: 06-10-2024 ambulatory ZAIDA CHILD [facility] Start: 06-03-2024 End: 06-04-2024 Orders Only [...] with pain Start: 05-19-2024 End: 05-19-2024 ambulatory [facility] Work Phone: Start: 05-19-2024 End: 05-19-2024 Patient encounter procedure [facility] Work Phone: Start: 05-07-2024 Non-patient / Non-visit [facility] Work Phone: Start: 05-07-2024 End: 05-07-2024 ambulatory [facility] Work Phone: Start: 05-07-2024 End: 05-07-2024 Patient encounter procedure [facility] Work Phone: Start: 2024 Non-patient / Non-visit [facility] Work Phone: Start: 05-01-2024 Patient encounter status [facility] Start: 05-01-2024 Non-patient / Non-visit [facility] Work Phone: Start: 04-29-2024 End: 04-29-2024 ambulatory [facility] Work Phone: Start: 04-29-2024 End: 04-29-2024 Patient encounter procedure [facility] Work Phone: Start: 04-10-2024 End: 04-10-2024 ambulatory Johny Perdomo DO Facility:[facility] Start: 03-20-2024 ambulatory Johnytae willis DO Facility:[facility] Start: 02-05-2024 Patient encounter procedure [facility] Start: 01-24-2024 End: 01-24-2024 ambulatory [facility] Work Phone: Start: 01-24-2024 End: 01-24-2024 Patient encounter procedure [facility] Work Phone: Start: 01-15-2024 End: 01-15-2024 ambulatory Katie M. Lue Facility[facility] Start: 01-15-2024 End: 01-15-2024 Lab Drop off Katie Jeffries. Lue [facility] Start: 01-15-2024 End: 01-15-2024 ambulatory Katie Jeffries. Lue Facility:[facility] Start: 01-15-2024 End: 01-15-2024 Patient encounter procedure Katie M. Lue [facility] Start: 08-01-2023 End: 08-01-2023 ambulatory Hafsa Knowles Other [employer] Other Start: 08-01-2023 Telephone encounter Hafsa Knowles [facility] Start: 07-30-2023 End: 07-30-2023 ambulatory Hafsa Knowles Other [employer] Other Start: 07-30-2023 Telephone encounter Hafsa Benson [facility] Start: 02-20-2023 End: 02-20-2023 ambulatory Katie Jeffries. Lue Facility:[facility] Start: 02-20-2023 End: 02-20-2023 Patient encounter procedure Katie M. Lue [facility] Start: 08-22-2022 End: 08-22-2022 Patient encounter procedure Katie M. Lue [facility] Start: 08-01-2022 End: 08-01-[address] ANTWON BAKER Facility:[facility] Start: 07-30-2022 End: 07-31-[address] ANTWON BAKER Facility:[facility] Start: 07-12-2022 Adult health examination Vanessa Knowles Other [employer] Other Start: 06-13-2022 End: 06-14-[address] HAFSA KNOWLES Facility:[facility] Start: 12-05-2021 End: 12-05-2021 Patient encounter procedure Mally Key Jr. [facility] Start: 11-27-2021 End: 11-28-[address] [...] Start: 06-10-2025 Tobacco Screening Tobacco Screening [facility] Start: 05-28-2025 Tobacco Screening [facility] System Start: 06-25-2024 End: 06-25-2024 Patient encounter procedure 06/25/2024 9:20 AM EST Office Visit [facility] [address] [place] [address] Zaida Child MD [address], [address] [address] [facility] Start: 06-18-2024 End: 06-18-2024 Patient encounter procedure 06/18/2024 10:20 AM EST Office Visit [facility] [address] [place] [address] Zaida Child MD [address], [address] [address] [facility] Start: 05-19-[address] [facility] Work Phone: Start: 03-15-2024 COVID-19 Vaccine ( season) COVID-19 Vaccine ( season) [facility] Start: 07-20-2023 Tobacco Screening Tobacco Screening [facility] Start: 2012 Fall Risk Screening Fall Risk Screen ing [facility] Start: 1966 DTaP,Tdap and Td Vaccines (1 - Tdap) DTaP,Tdap and Td Vaccines (1 - Tdap) [facility] Start: 1959 [facility].axial Views for bone density [facility] MG Breast - bilatera l Screening [facility] Patient referral [facility] Work Phone: US Lower extremity v ein - right [facility] XR Tibia and Fibula - right 2 Views [facility] Immunizations Immunization Date Immunization Notes Care Provider Fa cility 04-10-2022 SARS-CoV-2 (COVID-19 ) [id number] Katie Almonte [facility] 04-11-2021 SARS-CoV-2 (COVID-19 ) mRNA BNT-162b2 vax Katie Lue [facility] 02-15-2021 zoster vaccine recombinant Katie Lue [facility] 11-30-2020 zoster vaccine recombinant Katie Lue [facility] 08-30-2020 SARS-CoV-2 (COVID-19 ) mRNA BNT-162b2 vax Katie Lue [facility] Comment on above: Result Comment: 2022: [id number] 08-09-2020 SARS-CoV-2 (COVID-19 ) mRNA BNT-162b2 vax Katie Lue [facility] Comment on above: Result Comment: 2022: [id number] 05-16-2020 influenza virus vaccine, split virus (incl. purified surface antigen) Hafsa Knowles Other [employer] Other 05-16-2020 influenza virus vaccine, unspecified formulation [facility] 04-26-2020 influenza virus vaccine, unspecified formulation Katie Josée [facility] 12-16-2018 pneumococcal polysaccharide vaccine, 23 valent Hafsa Knowles Other [facility] 11-07-2017 pneumococcal conjuga te vaccine, 13 valent Mally Key Jr. [facility] 11-07-2017 pneumococcal Conjuga te, unspecified formulation; Translations: [Need for prophylactic vaccination against Streptococcus pneumoniae (pneumococcus)] Hafsa Knowles Other [employer] Other 10-13-2017 pneumococcal polysaccharide vaccine, 23 valent Katie Almonte [facility] 04-14-2017 influenza virus vaccine, unspecified formulation Katie Almonte [facility] Payers Date Payer Category Payer Self-pay 2020 [employer] Member Subscriber Plan / Payer (Effective 2020-Present) Name: Damaso Kan Relation to Subscriber: Self Name: Damaso Kan Payer ID: Not on file Type: Not on file Address: [place] [id number] 2012 Medicare 2012 Unknown 1957 Medicare [id number] 1959 Unknown [id number] 1945 Unknown [id number] 93 1945 Unknown [id number] 93 1947 Unknown [id number] .[id number] 93 1947 Unknown [id number] .[id number] 93 1947 Unknown [id number] .[id number] 27 1947 Unknown [id number] 27 1947 Unknown [id number] 27 1947 Unknown [id number] 96 1947 Unknown [id number] 286 Medicare Medicare [id number] Unknown [id number] 31 Social History Date Type Detail Facility Start: 12-05-2021 End: 07-18-2022 Tobacco smoking status Never smoked tobacco (finding) [facility] Start: 05-28-2024 End: 06-10-2024 Sex Assigned At Female [facility] Tobacco smoking status Never [facility] Start: 1945 Sex Assigned At Female [facility] Start: 07-18-2022 Tobacco use and exposure Smokeless tobacco non-user [facility] Start: 05-28-2024 End: 06-10-2024 Alcoholic beverage intake Lifetime non-drinker (finding) [facility] Start: 05-28-2024 End: 06-10-2024 History of Social function [facility] Start: 07-18-[address] [facility] Start: 1945 Sex assigned at Not on file P [facility] Start: 05-31-2021 Sex Female (finding) [facility] Functional Status Date Assessment Result Facility 01-15-2024 Functional Status N/A [facility] 02-20-2023 Functional Status N/A [facility] 08-22-2022 Functional Status N/A [facility] Clinical Notes 12-05-2021 to 06-10-2024 Assessment [...] ultrasound compression stockings leg elevation and exercise. [facility] 06-10-2024 Evaluation + Plan note Associated Problem(s): Superficial phlebitis and thrombophlebitis of right lower extremity Warm compresses nonsteroidal anti-inflammatory drugs leg elevation and compression therapy. We will get venous reflux ultrasound and rule out DVT as well. [facility] 06-10-2024 Miscellaneous Notes Associated Problem(s): Varicose veins of bilateral lower extremities with pain Venous reflux ultrasound compression stockings leg elevation and exercise. Associated Problem(s): Superficial phlebitis and thrombophlebitis of right lower extremity Warm compresses nonsteroidal anti-inflammatory drugs leg elevation and compression therapy. We will get venous reflux ultrasound and rule out DVT as well. documented in this encounter [facility] 06-10-2024 History of Presen t [...] given by office. Patient was given a [employer] coupon voucher to use, this is not [...] Zaida Child MD, TRIPP, RPVI, FSVS, FACS [facility] This note was created with the assistance of a speech recognition program. While intending to generate a timely document that accurately reflects the content of the visit, no guarantee can be provided that every grammatical or spelling mistake has been or will be identified or corrected. Thank you for your understanding. documented in this encounter [facility] 05-28-2024 Evaluation + Plan note Associated Problem(s): Varicose veins of bilateral lower extremities with pain Compression stockings leg elevation exercise. Venous reflux ultrasound. [facility] 05-28-2024 Miscellaneous Notes Associated Problem(s): Varicose veins of bilateral lower extremities with pain Compression stockings leg elevation exercise. Venous reflux ultrasound. Associated Problem(s): Superficial phlebitis and thrombophlebitis of right lower extremity Nonsteroidal anti-inflammatory drugs warm compresses leg elevation and compression therapy when possible documented in this encounter [facility] 05-28-2024 Evaluation + Plan note Associated Problem(s): Superficial phlebitis and thrombophlebitis of right lower extremity Nonsteroidal anti-inflammatory drugs warm compresses leg elevation and compression therapy when possible [facility] [address] [facility] 05-28-2024 History of Presen t illness Narrative [...] given by office. Patient was given a [employer] coupon voucher to use, this is not [...] 06/14/2021 Performed by Vic Hitchcock DO at [facility] BREAST SURGERY bx, marker in place [...] extremity Right leg pain - [facility] [place], [place] Phlebitis and thrombophlebitis of unspecified site [facility] [place], [place] Varicose veins of bilateral lower extremities with pain Zaida Child MD, TRIPP, RPVI, FSVS, FACS [facility] This note was created with the assistance of a speech recognition program. While intending to generate a timely document that accurately reflects the content of the visit, no guarantee can be provided that every grammatical or spelling mistake has been or will be identified or corrected. Thank you for your understanding. documented in this encounter [facility] 04-10-2024 Note Procedure: MRI of [...] Signed, Electronically Signed in Other Vendor System) [facility] 04-10-2024 Note Procedure: MRI of [...] Signed, Electronically Signed in Other Vendor System) [facility] 01-15-2024 Evaluation + Plan note Diagnostic Tests PendingUrine Culture 01/15/24 [facility] 01-15-2024 Hospital Discharg e instructions Patient [...] provider. Document Revised: 11/09/2021 Document Reviewed: 11/09/2021 [employer] Patient Education 2022 [employer]. Follow Up Care 02/20/2023 12:02:25 With:Gage JACOB, Katie Arteaga, KEKE, URO Address: [address] [place] [phone] When: Unknown [facility] 01-15-2024 Note Patient Education Obstetrics and [...] provider. Document Revised: 11/09/2021 Document Reviewed: 11/09/2021 [employer] Patient Education ? 2022 [employer]. [facility] 07-30-2023 Evaluation note Encounter Date Diagnosis Assessment Notes Jul, Acute non-recurrent maxillary sinusitis (ICD-10 - J01.00) [employer] Other 08-09-2023 Hospital Discharge instructions Patient Education 02/20/2023 09:58:29 Urinary Tract Infection, Adult, Euhf-ix-Yijj Urinary Tract Infection, Adult A urinary tract [...] Follow these instructions at home: Medicines Take jcld-rpo-gmoqhsk and prescription medicines only as told by [...] provider. Document Revised: 02/10/2021 Document Reviewed: 02/10/2021 [employer] Patient Education 2022 [employer]. Follow Up Care 08/22/2022 12:56:32 With:Gage JACOB, KEKE Carrera, URO Address: When:Within 1 Year(s) [facility] 02-08-2023 Hospital Discharge instructions Patient Education [...] 06/17/2013 Document Revised: 02/18/2019 Document Reviewed: 02/18/2019 [employer] Patient Education 2019 [employer] Follow Up Care 06/13/2022 11:42:12 With:Gage JACOB, KEKE Carrera, URO Address: When: Unknown [facility] 05-24-2022 Hospital Discharge instructions Patient Education [...] provider gives to you. In general: Take bskv-kjv-xdomhwh and prescription medicines only as told by [...] 01/26/2015 Document Revised: 08/07/2018 Document Reviewed: 08/07/2018 [employer] Patient Education 2020 [employer]. Follow Up Care 06/07/2021 13:20:37 With:Shahid Ontiveros MD, Mally Mendiola, URO Address: [facility] [address] , [place] [address]- When: Unknown [facility] evaluation + Plan note No data available for this section [facility] evaluation + Plan note Future Appointments Appointment Date:02/20/2023 10:45:00 AM Scheduled Provider:Gage JACOB, Katie Arteaga Location:[facility] Appointment Type:URO [facility] Future Appointments Appointment Date:02/26/2024 10:45:00 AM Scheduled Provider:Katie Almonte MD Location:[facility] Appointment Type:URO Office Visit [facility] evalvisguq noteNo [facility] Other Evaluation note* Diagnosis Onset Date Resolution Status Menopausal and postmenopausal disorder acute Screening mammogram for breast cancer acute [facility] Work Phone: Evaluation noteNo assessment information available [facility] Work Phone: evaluhsaqe note* Diagnosis Onset Date Resolution Status Preoperative examination acu te Right leg pain acute [facility] Work Phone: evaluation note* Diagnosis Onset Date Resolution Status Preoperative examination acu te Right leg pain acute Phlebitis acute Right leg pain acute [facility] Work Phone: evaluqocgx note* Diagnosis Superficial phlebitis and thrombophlebitis of [...] ABOVE SURGERY Hospitalization History [facility] Other Hospital Discharge instructions No data available for this section [facility]* Referral to Vascular Surgery Time Frame: 05/19/24, Location: None Selected [facility] Work Phone: InstructionsNot on filedocumented in this encounter [facility] filedocumented in this encounter [facility] System[facility]ructionsNot on filedocumented in this encounter [facility] No data available for this section [facility] Summary Purpose Family History No Family [...] and content) DATE CREATED AUTHOR 08/02/2022 [facility] DATE CREATED AUTHOR AUTHOR'S ORGANIZ ATION 01/16/2024 [facility] DATE CREATED AUTHOR AUTHOR'S ORGANIZ ATION 01/19/2024 [facility] DATE CREATED AUTHOR AUTHOR'S ORGANIZ ATION 04/11/2024 [facility] DATE CREATED AUTHOR AUTHOR'S ORGANIZ ATION 06/13/2024 [facility] DATE CREATED AUTHOR AUTHOR'S ORGANIZ ATION 07/12/2024 [facility] Patient Care team informatio n [...] May 19, 2024 End: May 19, 2024 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 Start Date End Date Hafsa Knowles MD [address] [place] [address] PCP - General Family Medicine 06/01/21 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 Start Date End Date Hafsa Knowles MD [address] [place] [address] PCP - General Family Medicine 06/01/21 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 Start Date End Date Hafsa Knowles MD [address] [place] [address] PCP - General Family Medicine 06/01/21 REASON FOR VISIT (unrecogniz ed section and content) Reason Comments new patient - right leg pain after cellu litis Specialty Diagnoses / Procedures Referred By Mara t Referred To Contact Vascular Surgery Diagnoses Right leg pain Phlebitis and thrombophlebitis of unspecified site Hafsa Knowles MD [address] [place] [address] Phone: tel: fax: [facility] [address] [place] [address] Phone: tel:[phone] fax: Referral ID Status Reason Start Date Expiration Date Visits Requested Visits Authorized [id number] Pending Review Specialty Services Required 05/20/2024 05/20/2025 [...] BE BASED ON THE PRIMARY CLINICAL RECORDS. [employer] provides no warranty or guarantee of the accuracy or completeness of information in this document.
[2024-07-16 14:15] VITALS: BP 136/70; PULSE 72; O2SAT 96
== END 2024-07-16 15:06 | disposition home or self-care (01) ==
LOC: VC 13:53
PROVIDERS: PCP Radiology Diagnostic Radiology; Visit Provider Radiology Diagnostic Radiology
DX: I83.813 Varicose veins of bilateral lower extremities with pain (principal)
CPT/HCPCS: 36466

== ENCOUNTER 2024-07-20 11:21 | Outpatient (OUT) | payer MEDICARE, OTHER, SELFPAY ==
--- NOTE | 2024-07-20 11:22 | VEIN_ITS ---
Patient Name: BHAVESH MONTEIRO MR#: [id number] : 1945 Exam Date: 07/20/2024 Ordering Doctor: DR QUENTIN HERNANDEZ M.D. RADIOLOGY REPORT PROCEDURE: [facility] EST [facility] - OFFICE VISIT FOLLOW UP [facility] PROGRESS NOTES: The patient reports no significant problems following micro foam chemical ablation of incompetent right leg varicose veins. The patient did not require oral analgesics. The patient did wear her compression stocking. Physical exam demonstrates some swelling and warmth of the right mid to distal medial and anterior lower leg and ankle likely representing thrombophlebitis. No active ulceration. Review of the ultrasound performed the same day demonstrates occlusive thrombus extending throughout the treated right leg varicose veins. There is an 8 cm segment of deep vein thrombus in a single posterior tibial vein, 8 cm from the popliteal vein. This is related to a known incompetent perforating vein which could not be treated with intravenous laser ablation due to lack of an overlying active skin ulceration. These findings were discussed with the patient The patient expressed a desire to proceed with treatment of incompetent left leg varicose veins with micro foam chemical ablation. VEIN/[facility] EST TD IMPRESSION: 1. Successful ablation of treated right leg varicose veins within 8 cm deep vein thrombus in a single posterior tibial vein 2. Persistent incompetent left leg varicose veins. PLAN: 1. 325 milligram enteric coated aspirin once per day until her next visit Nurse notes, history and physical were reviewed and confirmed, see attached forms. The nurse was present throughout the physical exam and consultation Dictated by: Quentin Hernandez MD on 07/20/2024 at 11:53 Approved by: Quentin Hernandez MD on 07/20/2024 at 12:46
--- NOTE | 2024-07-20 11:22 | VEIN_ITS ---
Patient Name: BHAVESH MONTEIRO MR#: [id number] : 1945 Exam Date: 07/20/2024 Ordering Doctor: DR QUENTIN HERNANDEZ M.D. RADIOLOGY REPORT PROCEDURE: VC EXT VENOUS RT LMTD COMPARISON: VC EXT VENOUS RT LMTD, 07/13/2024. VC EXT VENOUS RT LMTD, 07/06/2024. INDICATIONS: I80.01 - Phlebitis and thrombophlebitis of superficial veins right leg TECHNIQUE: Lower extremity rucker scale and Duplex Doppler evaluation of the deep venous system from the inguinal ligament through the calf veins. FINDINGS: REGION: Right lower extremity. THROMBI: Positive for DVT. Chemically induced thrombus in multiple varicose veins in right leg. Thrombus extends into PTV in an 8 cm segment from mid to prox lower leg. COMPRESSIBILITY: Non-compressible segments corresponding to thrombus FLOW: Areas of no flow corresponding to thrombus OTHER: Multiple large varicose veins remain. Largest is distal lateral thigh measures 7.1 mm. CONCLUSION: Post ablation occlusion of treated right leg varicose veins with an 8 cm segment of deep vein thrombus in a single posterior tibial vein related to an incompetent perforating vein Dictated by: Quentin Hernandez MD on 07/20/2024 at 11:50 Approved by: Quentin Hernandez MD on 07/20/2024 at 11:52
[2024-07-20 11:42] VITALS: BMI 36.3
--- NOTE | 2024-07-20 11:42 | VEINCLINIC_ITS ---
Vital Signs 07/20/24 11:42 Height 5 ft 6 in Weight 102 kg BMI 36.3 Varicose Veins Patient in today for follow up ultrasound of right lower extremity following treatment of Varithena/microfoam completed on 07/16/24. Quentin Michel MD personally performed the services described in this documentation, as scribed by Nichole Wesley RDMS in my presence and it is both accurate and complete. Nichole Michel RDMS, am scribing for, and in the presence of, Dr. Quentin Hernandez and in the presence of the patient. thigh: bilateral, knee: bilateral, calf: bilateral, ankle: bilateral and anderson: bilateral aching, sharp and tender 3 8 weeks Worsened in recent months: Yes standing analgesics, elevating extremities and compression stockings Reports erythema, bruising, heaviness, limb pain, edema and leg edema History of lower extremity trauma: No Superficial thrombophlebitis: Yes Family history of varicose veins: yes Has patient had previous lower extremity venous surgery: No Patient has previously received the following treatment(s) for lower extremity varicose veins: Reports none Does patient have a history of : yes Does patient intend to have future pregnancies: no Has patient had lower extremity venous scan with relux testing: Yes Support hose used: Yes Problems walking or doing physical activity: Yes How does it affect you: Unable to stand for long periods of time Do you walk much: Yes Do you stand much: Yes Review of Systems ROS Narrative Quentin Michel MD personally performed the services described in this documentation, as scribed by Nichole Wesley RDMS in my presence and it is both accurate and complete. Nichole Michel RDMS, am scribing for, and in the presence of, Dr. Quentin Hernandez and in the presence of the patient. Status of ROS 10 or more systems reviewed and unremark able except as noted in history and below Cardiovascular Reports: edema and swelling of feet/ankles Musculoskeletal Reports: extremity pain, extremity swelling, joint pain, joint swelling and muscle cramps Integumentary/Breast Reports: itching, redness, skin pain, skin tenderness, skin swelling and sores PFSH PFS Medical History (Updated 07/08/24 @ 10:56 by Maryan Mcwilliams MD) Phlebitis and thrombophlebitis of superficial vessels of right lower extremity ?I80.01 - Phlebitis and thrombophlebitis of superficial vessels of right lower extremity (ICD-10) Phlebitis and thrombophlebitis of superficial vessels of left lower extremity ?I80.02 - Phlebitis and thrombophlebitis of superficial vessels of left lower extremity (ICD-10) Pain due to varicose veins of both lower extremities ?I83.813 - Varicose veins of bilateral lower extremities with pain (ICD-10) Raynaud disease ?I73.00 - Raynaud's syndrome without gangrene (ICD-10) Arthritis ?M19.90 - Unspecified osteoarthritis, unspecified site (ICD-10) History of ITP (1989) ?Z86.2 - Personal history of diseases of the blood and blood-forming organs and certain disorders involving the immune mechanism (ICD-10) History of blood transfusion ?Z92.89 - Personal history of other medical treatment (ICD-10) Thyroid cyst ?E04.1 - Nontoxic single thyroid nodule (ICD-10) Phlebitis ?I80.9 - Phlebitis and thrombophlebitis of unspecified site (ICD-10) Varicose vein of leg ?I83.90 - Asymptomatic varicose veins of unspecified lower extremity (ICD-10) Knee pain ?M25.569 - Pain in unspecified knee (ICD-10) Seasonal allergic rhinitis ?J30.2 - Other seasonal allergic rhinitis (ICD-10) Cataracts, bilateral ?H26.9 - Unspecified cataract (ICD-10) Hyperparathyroidism ?E21.3 - Hyperparathyroidism, unspecified (ICD-10) Renal cyst ?N28.1 - Cyst of kidney, acquired (ICD-10) Osteopenia ?M85.80 - Other specified disorders of bone density and structure, unspecified site (ICD-10) Vitamin D deficiency ?E55.9 - Vitamin D deficiency, unspecified (ICD-10) Chronic UTI ?N39.0 - Urinary tract infection, site not specified (ICD-10) Genu varum of right lower extremity ?M21.161 - Varus deformity, not elsewhere classified, right knee (ICD-10) Primary osteoarthritis of right knee ?M17.11 - Unilateral primary osteoarthritis, right knee (ICD-10) Surgical History (Updated 07/16/24 @ 15:10 by Saeid Godinez) S/P sclerotherapy of varicose veins ?Z98.890 - Other specified postprocedural states (ICD-10) ?Z86.79 - Personal history of other diseases of the circulatory system (ICD- 10) Status post laser ablation of incompetent vein ?Z98.890 - Other specified postprocedural states (ICD-10) Status post laser ablation of incompetent vein ?Z98.890 - Other specified postprocedural states (ICD-10) Status post laser ablation of incompetent vein ?Z98.890 - Other specified postprocedural states (ICD-10) History of colonoscopy ?Z98.890 - Other specified postprocedural states (ICD-10) H/O knee surgery ?Z98.890 - Other specified postprocedural states (ICD-10) H/O breast biopsy ?Z98.890 - Other specified postprocedural states (ICD-10) History of cholecystectomy ?Z90.49 - Acquired absence of other specified parts of digestive tract (ICD- 10) H/O oophorectomy H/O parathyroidectomy ?Z98.890 - Other specified postprocedural states (ICD-10) ?Z90.89 - Acquired absence of other organs (ICD-10) History of hysterectomy ?Z90.710 - Acquired absence of both cervix and uterus (ICD-10) H/O tubal ligation ?Z98.51 - Tubal ligation status (ICD-10) H/O splenectomy (1989) ?Z90.81 - Acquired absence of spleen (ICD-10) S/P arthroscopic knee surgery ?Z98.890 - Other specified postprocedural states (ICD-10) Family History (Updated 06/16/24 @ 10:21 by Hilda Reyes RN) Mother Varicose veins of bilateral lower extremities with pain Father Family history of myocardial infarction Other Cancer Family history of DVT Family history of cancer Social History (Updated 05/01/24 @ 08:31 by Francesca Zavala NP) Within the past year, how often did you have a drink containing alcohol: never Score interpretation: A score less than 3 is consistent with normal alcohol consumption. 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 Highest level of school completed/degree received: some college, no degree Little interest or pleasure in doing things: not at all Feeling down, depressed, or hopeless: not at all Meds Home Medications and Allergies Home Medications ?Medication ?Instructions ?Recorded ?Confirmed ?Type biotin 5 mg capsule 5 mg PO DAILY 05/01/24 06/16/24 History cholecalciferol (vitamin D3) 125 125 mcg PO DAILY 05/01/24 06/16/24 History mcg (5,000 unit) capsule cranberry 500 mg capsule 500 mg PO DAILY 05/01/24 06/16/24 History d-mannose 500 mg capsule mg PO 05/01/24 History estradiol 0.01% (0.1 mg/gram) 0.5 appful vaginal .twice a week 05/01/24 06/16/24 History vaginal cream loratadine 10 mg capsule 10 mg PO DAILY 05/01/24 06/16/24 History [id number] 30 mg-folic cap PO 06/16/24 History acid 1 mg-dss 50 mg-dha 260 mg capsule cephalexin 500 mg capsule 500 mg PO BID #10 caps 07/08/24 Rx tamsulosin 0.4 mg capsule (Flomax) 0.4 mg PO DAILY #7 caps 07/08/24 Rx tramadol 50 mg tablet 50 mg PO Q8H PRN pain 2 days #6 07/08/24 07/13/24 Rx tabs Allergies Allergy/AdvReac Type Severity Reaction Status Date / Time codeine AdvReac Nausea Verified 05/01/24 08:26 Exam Narrative Exam Narrative: Quentin Michel MD personally performed the services described in this documentation, as scribed by Nichole Wesley RDMS in my presence and it is both accurate and complete. INichole RDMS, am scribing for, and in the presence of, Dr. Quentin Hernandez and in the presence of the patient. Constitutional Documenting provider has reviewed patient's vital signs: yes Common normals: oriented x3 Nutritional appearance: overweight Lymph Lymphatic: no lymphedema noted Cardio Peripheral pulses: posterior tibial pulses present and dorsalis pedis pulses present Extremity General: calf tenderness, edema and other findings Right lower extremity: lower leg Right lower leg: inspection and palpation Left lower extremity: lower leg Left lower leg: inspection and palpation Neuro Common normals: oriented x3 Results Imaging Venous US: Radiologist's impression: Chemically induced thrombus in multiple varicose veins in right leg. Thrombus extends into PTV in an 8 cm segment 7-8 cm from popliteal. Quentin Michel MD personally performed the services described in this documentation, as scribed by Nichole Wesley RDMS in my presence and it is both accurate and complete. I, Nichole Wesley RDMS, am scribing for, and in the presence of, Dr. Quentin Hernandez and in the presence of the patient. Assessment and Plan Assessment and Plan (1) Phlebitis and thrombophlebitis of superficial vessels of right lower extremity: Plan Plan is for patient to return for Varithena/microfoam of left leg on 07/23/24. IQuentin MD personally performed the services described in this documentation, as scribed by Nichole Wesley RDMS in my presence and it is both accurate and complete. I, Nichole Wesley RDMS, am scribing for, and in the presence of, Dr. Quentin Hernandez and in the presence of the patient.
--- NOTE | 2024-07-20 12:55 | P.DS_ITS ---
Discharge Plan Discharge Disposition: Home, Self-Care Outpatient Diagnostics: VC INJ Foam Sclerosant WUS NEWS SPECIALIST (Routine) Timeframe: 2 Weeks Facility: [facility] - Location: [facility] Ordered By: Quentin Hernandez Follow Up Appointments: 07/23/24 Plan of Treatment: Varithena left leg Print Language: Divehi Discharge Date/Time: 07/20/24 12:56
== END 2024-07-20 12:56 | disposition home or self-care (01) ==
PROVIDERS: PCP Family Medicine; Visit Provider Radiology Diagnostic Radiology
DX: I80.01 Phlebitis and thrombophlebitis of superficial vessels of right lower extremity (principal)
CPT/HCPCS: 93971; G0463

== ENCOUNTER 2024-07-21 10:27 | Outpatient (OUT) | payer MEDICARE, OTHER, SELFPAY ==
--- NOTE | 2024-07-21 10:33 | US_ITS ---
The [address] [address] Patient Name: BHAVESH MONTEIRO MRN: [id number] date: 1945 Sex: F Assigned Patient Location: US Current Patient Location: Accession/Order Number: [id number] Exam Date: 07/21/2024 10:36 Report Date: 07/22/2024 06:33 At the request of: HARLAN KNOWLES Procedure: US renal BI EXAMINATION: US renal BI HISTORY: Kidney Lesion, Hydronephrosis Right Kidney COMPARISON: No relevant comparison available. TECHNIQUE: Ultrasound examination was performed of the kidneys and urinary bladder. FINDINGS: RIGHT KIDNEY: No evidence of pelvocaliectasis, mass, or calculi. Normal parenchymal echogenicity. Color Doppler demonstrates blood flow within the kidney. Kidney: 10.1 x 5.3 x 5.3 cm LEFT KIDNEY: Contains a 2.0 cm hypoechoic area within anterior mid body. Normal parenchymal echogenicity. Color Doppler demonstrates blood flow within the kidney. Kidney: 7.9 x 6.5 x 7.8 cm BLADDER: No visible wall thickening, mass, or calculi. Post void residual: 48 mL URETERAL JETS: Visualized bilaterally. US/US renal BI IMPRESSION: 1. Nonspecific 2.0 cm lesion within left kidney which may correspond to finding on recent CT study but is not well seen. Given the appearance on the recent noncontrast CT study, further evaluation via CT abdomen without and with IV contrast to evaluate enhancement characteristics is recommended. Alternatively, MRI of the abdomen could be performed. Electronically authenticated by: DARIO BESS Date: 07/22/2024 06:33
== END 2024-07-21 10:28 | disposition home or self-care (01) ==
LOC: US 10:27
PROVIDERS: PCP Family Medicine; Visit Provider Family Medicine
DX: N28.9 Disorder of kidney and ureter, unspecified (principal); N13.30 Unspecified hydronephrosis
CPT/HCPCS: 76775

== ENCOUNTER 2024-07-23 14:55 | Outpatient (OUT) | payer MEDICARE, OTHER, SELFPAY ==
--- NOTE | 2024-07-22 15:13 | V.VEINS.HP ---
Vital Signs 07/23/24 15:04 BP 136/76 BP Location Right Brachial BP Position Sitting BP Cuff Size Large Adult BP Source Automatic Cuff Respiration 18 Pulse 83 Pulse Source Monitor Pulse Oximetry (%) 98 Oxygen Delivery Method Room Air Comment The patient's blood pressure is elevated. Varicose Veins Patient in today for microfoam chemical ablation left leg Quentin Michel MD personally performed the services described in this documentation, as scribed by Saeid Godinez RN in my presence and it is both accurate and complete. ISaeid RN, am scribing for, and in the presence of, Dr. Quentin Hernandez and in the presence of the patient. thigh: bilateral, knee: bilateral, calf: bilateral, ankle: bilateral and anderson: bilateral aching, sharp and tender 3 8 weeks Worsened in recent months: Yes standing analgesics, elevating extremities and compression stockings Reports erythema, bruising, heaviness, limb pain, edema and leg edema History of lower extremity trauma: No Superficial thrombophlebitis: Yes Family history of varicose veins: yes Has patient had previous lower extremity venous surgery: No Patient has previously received the following treatment(s) for lower extremity varicose veins: Reports none Does patient have a history of : yes Does patient intend to have future pregnancies: no Has patient had lower extremity venous scan with relux testing: Yes Support hose used: Yes Problems walking or doing physical activity: Yes How does it affect you: Unable to stand for long periods of time Do you walk much: Yes Do you stand much: Yes Review of Systems ROS Narrative Quentin Michel MD personally performed the services described in this documentation, as scribed by Saeid Godinez RN in my presence and it is both accurate and complete. Saeid Michel RN, am scribing for, and in the presence of, Dr. Quentin Hernandez and in the presence of the patient. Status of ROS 10 or more systems reviewed and unremarkable except as noted in history and below Cardiovascular Reports: edema and swelling of feet/ankles Musculoskeletal Reports: extremity pain, extremity swelling, joint pain, joint swelling and muscle cramps Integumentary/Breast Reports: itching, redness, skin pain, skin tenderness, skin swelling and sores [facility] History (Updated 07/08/24 @ 10:56 by Maryan Mcwilliams MD) Phlebitis and thrombophlebitis of superficial vessels of right lower extremity ?I80.01 - Phlebitis and thrombophlebitis of superficial vessels of right lower extremity (ICD-10) Phlebitis and thrombophlebitis of superficial vessels of left lower extremity ?I80.02 - Phlebitis and thrombophlebitis of superficial vessels of left lower extremity (ICD-10) Pain due to varicose veins of both lower extremities ?I83.813 - Varicose veins of bilateral lower extremities with pain (ICD-10) Raynaud disease ?I73.00 - Raynaud's syndrome without gangrene (ICD-10) Arthritis ?M19.90 - Unspecified osteoarthritis, unspecified site (ICD-10) History of ITP (1989) ?Z86.2 - Personal history of diseases of the blood and blood-forming organs and certain disorders involving the immune mechanism (ICD-10) History of blood transfusion ?Z92.89 - Personal history of other medical treatment (ICD-10) Thyroid cyst ?E04.1 - Nontoxic single thyroid nodule (ICD-10) Phlebitis ?I80.9 - Phlebitis and thrombophlebitis of unspecified site (ICD-10) Varicose vein of leg ?I83.90 - Asymptomatic varicose veins of unspecified lower extremity (ICD-10) Knee pain ?M25.569 - Pain in unspecified knee (ICD-10) Seasonal allergic rhinitis ?J30.2 - Other seasonal allergic rhinitis (ICD-10) Cataracts, bilateral ?H26.9 - Unspecified cataract (ICD-10) Hyperparathyroidism ?E21.3 - Hyperparathyroidism, unspecified (ICD-10) Renal cyst ?N28.1 - Cyst of kidney, acquired (ICD-10) Osteopenia ?M85.80 - Other specified disorders of bone density and structure, unspecified site (ICD-10) Vitamin D deficiency ?E55.9 - Vitamin D deficiency, unspecified (ICD-10) Chronic UTI ?N39.0 - Urinary tract infection, site not specified (ICD-10) Genu varum of right lower extremity ?M21.161 - Varus deformity, not elsewhere classified, right knee (ICD-10) Primary osteoarthritis of right knee ?M17.11 - Unilateral primary osteoarthritis, right knee (ICD-10) Surgical History (Updated 07/23/24 @ 16:07 by Saeid Godinez) S/P sclerotherapy of varicose veins ?Z98.890 - Other specified postprocedural states (ICD-10) ?Z86.79 - Personal history of other diseases of the circulatory system (ICD-10) S/P sclerotherapy of varicose veins ?Z98.890 - Other specified postprocedural states (ICD-10) ?Z86.79 - Personal history of other diseases of the circulatory system (ICD-10) Status post laser ablation of incompetent vein ?Z98.890 - Other specified postprocedural states (ICD-10) Status post laser ablation of incompetent vein ?Z98.890 - Other specified postprocedural states (ICD-10) Status post laser ablation of incompetent vein ?Z98.890 - Other specified postprocedural states (ICD-10) History of colonoscopy ?Z98.890 - Other specified postprocedural states (ICD-10) H/O knee surgery ?Z98.890 - Other specified postprocedural states (ICD-10) H/O breast biopsy ?Z98.890 - Other specified postprocedural states (ICD-10) History of cholecystectomy ?Z90.49 - Acquired absence of other specified parts of digestive tract (ICD-10) H/O oophorectomy H/O parathyroidectomy ?Z98.890 - Other specified postprocedural states (ICD-10) ?Z90.89 - Acquired absence of other organs (ICD-10) History of hysterectomy ?Z90.710 - Acquired absence of both cervix and uterus (ICD-10) H/O tubal ligation ?Z98.51 - Tubal ligation status (ICD-10) H/O splenectomy (1989) ?Z90.81 - Acquired absence of spleen (ICD-10) S/P arthroscopic knee surgery ?Z98.890 - Other specified postprocedural states (ICD-10) Family History (Updated 06/16/24 @ 10:21 by Hilda Reyes RN) Mother Varicose veins of bilateral lower extremities with pain Father Family history of myocardial infarction Other Cancer Family history of DVT Family history of cancer Social History (Updated 05/01/24 @ 08:31 by Francesca Zavala NP) Within the past year, how often did you have a drink containing alcohol: never Score interpretation: A score less than 3 is consistent with normal alcohol consumption. 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 Highest level of school completed/degree received: some college, no degree Little interest or pleasure in doing things: not at all Feeling down, depressed, or hopeless: not at all Meds Home Medications and Allergies Home Medications ?Medication ?Instructions ?Recorded ?Confirmed ?Type biotin 5 mg capsule 5 mg PO DAILY 05/01/24 06/16/24 History cholecalciferol (vitamin D3) 125 125 mcg PO DAILY 05/01/24 06/16/24 History mcg (5,000 unit) capsule cranberry 500 mg capsule 500 mg PO DAILY 05/01/24 06/16/24 History d-mannose 500 mg capsule mg PO 05/01/24 History estradiol 0.01% (0.1 mg/gram) 0.5 appful vaginal .twice a week 05/01/24 06/16/24 History vaginal cream loratadine 10 mg capsule 10 mg PO DAILY 05/01/24 06/16/24 History [id number] 30 mg-folic cap PO 06/16/24 History acid 1 mg-dss 50 mg-dha 260 mg capsule cephalexin 500 mg capsule 500 mg PO BID #10 caps 07/08/24 Rx tamsulosin 0.4 mg capsule (Flomax) 0.4 mg PO DAILY #7 caps 07/08/24 Rx tramadol 50 mg tablet 50 mg PO Q8H PRN pain 2 days #6 07/08/24 07/13/24 Rx tabs Allergies Allergy/AdvReac Type Severity Reaction Status Date / Time codeine AdvReac Nausea Verified 05/01/24 08:26 Exam Narrative Exam Narrative: IQuentin MD personally performed the services described in this documentation, as scribed by Saeid Godinez RN in my presence and it is both accurate and complete. ISaeid RN, am scribing for, and in the presence of, Dr. Quentin Hernandez and in the presence of the patient. Constitutional Documenting provider has reviewed patient's vital signs: yes Common normals: oriented x3 Nutritional appearance: overweight Lymph Lymphatic: no lymphedema noted Cardio Peripheral pulses: posterior tibial pulses present and dorsalis pedis pulses present Extremity General: calf tenderness, edema and other findings Right lower extremity: lower leg Right lower leg: inspection and palpation Left lower extremity: lower leg Left lower leg: inspection and palpation Neuro Common normals: oriented x3 Assessment and Plan Assessment and Plan (1) Pain due to varicose veins of both lower extremities: Plan f/u examination with physician along with left leg limited u/s Quentin Michel MD personally performed the services described in this documentation, as scribed by Seaid Godinez RN in my presence and it is both accurate and complete. ISaeid RN, am scribing for, and in the presence of, Dr. Quentin Hernandez and in the presence of the patient. Procedures Procedure Instructions Procedures Left leg microfoam chemical ablation/Varithena: Risks and benefits of the procedure were discussed at length and informed written consent was obtained.? Time-out procedure was performed and the correct patient and procedure were confirmed.? Staff present during time-out: Saeid Godinez RN and Quentin Hernandez MD.? Patient prepped and procedure performed in usual sterile fashion.? Patient was placed in Trendelenburg prior to Polidocanol/Varithena injections. Sclerosing Agent:??15 cc 1% Polidocanol/Varithena Site Injected: left lecc varithena administered in to a 5mm varicose vein distal medial anterior lower leg 7cc varithena administered in to a anterior lateral knee/distal thigh Number of Injections:? 2 The patient tolerated the procedure well without complication.? Hemostasis was obtained and thigh-high compression stocking was applied with foam pads.? Instructed patient to wear stocking for at least 96 hours and sleep with it and only remove for showering.? The patient was instructed to? wear stocking for 2 weeks.? Patient verbalizes understanding and states they will comply.? Patient was given post-procedure instructions. Patient was discharged in good condition.? Scheduled to undergo limited venous ultrasound and? exam on 07/28/2024. Quentin Michel MD personally performed the services described in this documentation, as scribed by Saeid Godinez RN in my presence and it is both accurate and complete. Saeid Michel RN, am scribing for, and in the presence of, Dr. Quentin Hernandez and in the presence of the patient.
--- NOTE | 2024-07-22 15:16 | P.DS_ITS ---
Discharge Plan Discharge Disposition: Home, Self-Care Outpatient Diagnostics: VC Facility EST LMTD (Routine) Timeframe: 2 Weeks Facility: [facility] - Location: Vein Center Ordered By: Quentin Hernandez VC EXT Venous LT Limited (Routine) Timeframe: 2 Weeks Facility: [facility] - Location: Vein Center Ordered By: Quentin Hernandez Follow Up Appointments: 07/28/2024 Plan of Treatment: f/u evaluation with physician along with left left limited u/s Patient Instructions: Endovenous Ablation (DC) Print Language: Uzbek Discharge Date/Time: 07/23/24 16:11
--- NOTE | 2024-07-23 14:57 | VEIN_ITS ---
[address] [address] Patient Name: BHAVESH MONTEIRO MRN: [id number] date: 1945 Sex: F Assigned Patient Location: Current Patient Location: Accession/Order Number: [id number] Exam Date: 07/23/2024 15:00 Report Date: 07/23/2024 16:00 At the request of: CARLO RICHARDSON Procedure: VC INJ Foam Sclerosant [facility] PROCEDURE: VC INJ Foam Sclerosant [facility] PHYSIC[facility] COMPARISON: None. HISTORY: I83.813 - Varicose veins of bilateral lower extremities w... Pre-operative Diagnosis: CEAP class C4a venous insufficiency with pain, tenderness, edema and incompetent left saphenous and varicose vein(s), chronic venous insufficiency left leg secondary to venous incompetence Post-operative Diagnosis: CEAP class C4a venous insufficiency with pain, tenderness, edema and incompetent left saphenous and varicose vein(s), chronic venous insufficiency left leg secondary to venous incompetence Procedure Performed: 1. Ultrasound-guided microfoam chemical ablation with Varithenaregistered 2. Intraoperative ultrasound guidance Anesthesia: None Indications for Procedure: 79-year-old female who presents with a long history of lower extremity pain swelling varicose veins culminating and hemosiderin staining. The patient failed conservative medical therapy including medical compression stockings, exercise and analgesics. Prior procedures include . Multiple incompetent varicosities of the left leg. Duplex scan showed reflux and enlarged diameters up to 8 mm. The patient underwent informed consent including management options where the complications of infection, bleeding, pain, and skin injury were discussed. Particular attention was spent discussing thrombus extension and deep vein thrombosis as well as the possibility of pulmonary embolus and treatment with oral or injectable blood thinners. Procedure: The patient walked to the procedure room. All applicable staff donned appropriate apparel. A procedure timeout was performed to confirm correct patient, correct extremity, correct procedure, and correct room set-up including presence of all applicable supplies, devices, and drugs. A duplex ultrasound, performed by myself confirmed the location and incompetence of branch saphenous varicosities and their course was marked on the skin together with the dilated tributaries. The extent of treatment of the vein and the associated varicosities was determined through ultrasound mapping. The skin was prepped and then punctured with a butterfly needle and advanced under ultrasound guidance. The Varithenaregistered canister was activated and the canister was primed and purged as required in the instructions for use. Varithenaregistered was drawn into a sterile syringe. Following injections were made: 8 cc injected into an 5 mm varicose vein distal mid anterior lower leg 7 cc injected into an 8 mm varicose vein anterior lateral knee/distal thigh Varithenaregistered was slowly administered at 0.5-1.0 cc/second with close observation by ultrasound of its course in the vessels. Total volume utilized was: 15cc. Following administration of Varithenaregistered the leg was elevated and the patient was asked to repeatedly dorsiflex the ankle to limit flow of Varithenaregistered into perforating veins. Once appropriate spasm had been confirmed in the treated veins, the vascular catheter was removed from the leg and light pressure was applied over the puncture site for hemostasis. The common femoral and deep superficial veins were then evaluated for flow and compressibility prior to dressing placement. The lower extremity was kept elevated at 45 degrees above the horizontal and cording material was applied over the saphenous segments and tributaries to allow for eccentric compression over the target vessels including the targeted saphenous vein(s). A multilayer dressing was applied consisting of foam pads, coban and thigh-high 20-30 mm Hg compression elastic support hose were placed on the patient. The leg was lowered only after compression had been applied and the patient was immediately ambulatory. The patient ambulated 10 minutes under supervision and was without apparent concerns at time of release. Post-care instructions include advising patient to keep post-treatment bandages in place and dry for 48 hours, avoid extended periods of inactivity, avoid heavy exercise for one week, wear compression stockings on the treated leg continuously for two weeks, to walk daily for 10 minutes over the next month. The patient was instructed to take an anti-inflammatory medicine as needed and to follow up for color duplex scan of the Saphenous veins, the treated branch saphenous varicosities, the adjacent deep veins, and additional treatment within 7 days. PERSONNEL: Saeid Godinez RN Electronically authenticated by: CARLO RICHARDSON Date: 07/23/2024 16:00
[2024-07-23 15:04] VITALS: BP 136/76; PULSE 83; O2SAT 98
== END 2024-07-23 16:11 | disposition home or self-care (01) ==
LOC: VC 14:55
PROVIDERS: PCP Family Medicine; Visit Provider Radiology Diagnostic Radiology
DX: I83.813 Varicose veins of bilateral lower extremities with pain (principal)
CPT/HCPCS: 36466

== ENCOUNTER 2024-07-28 10:55 | Outpatient (OUT) | payer MEDICARE, OTHER, SELFPAY ==
--- NOTE | 2024-07-28 10:57 | VEIN_ITS ---
Patient Name: BHAVESH MONTEIRO MR#: [id number] : 1945 Exam Date: 07/28/2024 Ordering Doctor: DR CARLO RICHARDSON M.D. RADIOLOGY REPORT PROCEDURE: [facility] - OFFICE VISIT FOLLOW UP COMPARISON: [facility], 07/20/2024. PROGRESS NOTES: The patient reports improvement in leg symptoms. There has been interval reduction in varicosities. The patient has followed our recommendations to walk 20-30 minutes once or twice per day since the procedure. Physical exam demonstrates decrease in varicosities of the leg. Persistent varicosities are identified along the legs bilaterally. Review of the ultrasound performed the same day demonstrates occlusive thrombus extending throughout the treated vein(s), see separate report, consistent with a successful ablation. No thrombus extending into or beyond the saphenofemoral junction. The patient expressed a desire to proceed with treatment of remaining incompetent varicosities. The patient was informed that treatment was a process and would require several procedures/sessions. [facility]: 1. Successful ablation of the left leg treated branch saphenous vein(s). 2. Persistent superficial varicose veins and lower extremity symptoms. PLAN: Microfoam chemical ablation of right leg incompetent branch saphenous varicosities. Nurse notes, history and physical were reviewed and confirmed, see attached forms. The nurse was present throughout the physical exam and consultation Dictated by: Blanco Sullivan M.D. on 07/28/2024 at 14:15 Approved by: Blanco Sullivan M.D. on 07/28/2024 at 14:17
--- NOTE | 2024-07-28 10:57 | VEIN_ITS ---
Patient Name: BHAVESH MONTEIRO MR#: [id number] : 1945 Exam Date: 07/28/2024 Ordering Doctor: DR CARLO RICHARDSON M.D. RADIOLOGY REPORT PROCEDURE: VC EXT VENOUS LT LIMITED COMPARISON: VC EXT VENOUS LT LIMITED, 06/30/2024. INDICATIONS: I80.02 - Phlebitis and thrombophlebitis of superficial ve... TECHNIQUE: Lower extremity rucker scale and Duplex Doppler evaluation of the deep venous system from the inguinal ligament through the calf veins. FINDINGS: REGION: Left lower extremity. THROMBI: Negative for DVT. Varithena induced thrombus visualized at mid/lateral calf and lateral knee. COMPRESSIBILITY: Non-compressible segments corresponding to thrombus FLOW: Areas of no flow corresponding to thrombus OTHER: Multiple varicose veins remain measuring up to 7.9mm with 1.3s reflux. CONCLUSION: 1. Successful post ablation occlusion of left leg treated branch saphenous varicosities. Dictated by: Blanco Sullivan M.D. on 07/28/2024 at 14:15 Approved by: Blanco Sullivan M.D. on 07/28/2024 at 14:15
--- OUTSIDE RECORDS SUMMARY | 2024-07-28 11:05 | XMS_ITS | CCD ---
Author Organization [facility] Care Team Providers Care Metal Framer Name Role Phone HAFSA KNOWLES Primary Care [...] Consulting Unavailparadise BAKER, DR ANTWON Sharma Admitting Unavailabl e SAMUEL, [...] ZAIDA CHILD Attending Unavailable HAFSA KNOWLES Referring Unavailable HAFSA KNOWLES Primary Care Unavailable Maryan Mcwilliams Attending Unavailable Maryan Mcwilliams Admitting Unavailable Maryan Mcwilliams MD Attending Provider Allergies Allergy Classification Reported Allergen(s) Allergy Type Date of Onset Reaction(s) Facility (17 sources) Codeine; Translations: [codeine] Drug Allergy 12-26-19 16 Nausea [facility] (1 source) Codeine Drug Allergy [facility] Repository (2 sources) Acetaminophen / HYDROcodone Drug Allergy Unknown Admittedly [facility] Other (2 sources) Codeine Drug Allergy Unknown [facility] Other (2 sources) patient allergy list reviewed by nurse or physicia Propensity to adverse reactions 04-29-20 15 Comment:Done [facility] Other (2 sources) Allergies Reconciled Propensity to adverse reactions Unknown Admittedly [facility] Other (6 sources) Acetaminophen; Translations: [acetaminophen] Drug Allergy 01-24-20 24 [facility] (6 sources) HYDROcodone; Translations: [hydrocodone] Drug Allergy 01-24-20 24 [facility] (1 source) Codeine Drug Allergy 05-19-20 [facility] Repository Medications Current Medications Medication Drug Class(es) Dates Sig (Normalized) Sig (Original) acetaminophen 325 mg oral tablet (3 sources) acetaminophen (TYLENOL) 325 mg tablet Take by mouth. Active biotin 5 mg oral capsule (15 sources) Start: 01-21-2024 take 1 capsule by mouth once daily Biotin 5 mg capsule Active 5 MG PO Daily January 20, 2024 11:00pm Start: 10-25-2020 biotin 5000 mc g oral capsule Refills(s) 0 Start Date: 10/25/20 Status: Ordered biotin 1 mg caps ule Take by mouth. Active take 1 capsule by mo [facility] once daily Biotin 5000 5 MG 1 capsule Orally Once a day Active cholecalciferol 0.025 mg oral capsule (8 sources) Vitamin D Start: 01-21-2024 take 1 capsule by mouth once daily Cholecalciferol (Vitamin D3) 25 mcg (1,000 unit) capsule Active 25 MCG PO Daily January 20, [...] mouth. Active estradiol 0.1 mg/ml vaginal cream (9 sources) Estrogen Start: 01-24-2024 Estradiol (Estrace) 0.01 % (0.1 mg/gram) cream Active 1 APPLICATOR VAGINAL Daily January 23, 2024 11:00pm for 14 days Start: 01-15-2024 Estrace 0.1 mg /g Cream See Instructions, 42.5 gm, Refill(s) 6, Apply pea-sized amound around the opening of the urethra 3 times per week for 1 month then 2 times per week after for maintenance., [facility], 168, cm, 01/15/24 10:54:00 EDT, Height/Length Dosing, 96, kg, 01/15/24 10:54:00 EDT, Weight Dosing Start Date: 01/15/24 Status: Ordered Start: 08-22-2022 Estrace 0.1 mg /g Cream See Instructions, 42.5 gm, Refill(s) 6, Apply pea-sized amound around the opening of the urethra 3 times per week for 1 month then 2 times per week after for maintenance., [facility], 168, cm, 08/22/22 11:52:00 EST, Height/Length Dosin... Start Date: 08/22/22 Status: Ordered fexofenadine hydrochloride 60 mg oral tablet (13 sources) Histamine-1 Receptor Antagonist Start: 01-24-2024 take [...] morning. Active naproxen 500 mg oral tablet (2 sources) Nonsteroidal Anti-inflammatory Drug Start: 05-08-20 take 1 tablet by mouth twice daily Naproxen 500 mg tablet Active 500 MG PO Twice daily May 07, 2024 11:00pm sod sulf-pot chloride-mag sulf 1.479-0.188- 0.225 gram tablet (6 sources) Start: 07-24-19 sod sulf-pot chloride-mag sulf 1.479-0.188- 0.225 gram tablet Indications: Left upper quadrant abdominal pain , Abnormal computed tomography of large intestine PATIENT TO USE $50 COUPON VOUCHER GIVEN BY OFFICE, DO NOT RUN THRU INSURANCE 24 tablet 07/24/2022 Active Start: 07-18-2022 sod sulf-pot c hloride-mag sulf 1.479-0.188- 0.225 gram tablet See instructional sheet given by office. Patient was given a [employer] coupon voucher to use, this is not to be ran through patients insurance. 24 tablet 07/18/2022 Active Vitamin D-3 1000 UNIT (2 sources) take 1 capsule by [facility] once daily Vitamin D-3 1000 UNIT 1 capsule Orally Once a day Active Completed/Discontinued Medications Medication Drug Class(es) Dates Sig (Normalized) Sig (Original) cephalexin 500 mg oral capsule (7 sources) Cephalosporin Antibacterial Start: 05-05-2024 End: 05-08-2024 take 1 capsule by mouth three times daily Cephalexin 500 mg capsule Discontinued 500 MG PO Three times daily May 06, 2024 11:00pm May 08, 2024 2:53pm Start: 12-05-2021 take 1 capsule by [facility] every twelve hours Keflex 500 mg Cap 500 mg = 1 cap(s), Oral, q12hr, # 6 cap(s), Refills(s) 0, Pharmacy: [id number], 168, cm, 12/05/21 10:16:00 EDT, Height/Length Dosing, 97.5, kg, 12/05/21 10:16:00 EDT, Weight Dosing Start Date: 12/05/21 Status: Ordered nitrofurantoin, macrocrystals 50 mg oral capsule (15 sources) Nitrofuran Antibacterial Start: 03-24-2024 End: 07-16-2024 take 1 capsule by mouth once daily at mealtime Nitrofurantoin Macrocrystal 50 mg capsule Discontinued 0 .ROUTE .COMPLEX May 20, 2024 10:53am July 16, 2024 9:03am TAKE 1 CAPSULE BY MOUTH ONCE DAILY * TAKE WITH FOOD or a meal* Start: 01-24-2024 End: 03-24-2024 take 1 capsule by mouth once daily at mealtime Nitrofurantoin Macrocrystal 50 mg capsule Discontinued 50 MG PO Daily January 24, 2024 10:34am March 24, 2024 7:39am must administer with a meal/food Start: 01-24-2024 End: 01-24-2024 take 1 capsule by mouth twice daily at mealtime Nitrofurantoin Macrocrystal 100 mg capsule Discontinued 100 MG PO Twice daily January 23, 2024 11:00pm January 24, 2024 10:35am must administer with a meal/food omeprazole 40 mg delayed release oral capsule (7 sources) Proton Pump Inhibitor Start: 01-21-2024 End: 01-24-2024 take 1 capsule by mouth once daily Omeprazole 40 mg capsule,delayed release(DR/EC) Discontinued 40 MG PO Daily January 20, 2024 11:00pm January 24, 2024 10:02am Start: 09-05-2020 take 1 capsule by [facility] once daily Omeprazole 40 MG Omeprazole 40MG, 1 (one) Capsule daily # 30, 09/05/2020, Ref. x2. Active Oral daily for 30 Aug, Active predniSONE 20 mg oral tablet (2 sources) Start: 05-19-2024 End: 07-16-2024 take 1 tablet by mouth twice daily Prednisone 20 mg tablet Discontinued 20 MG PO Twice daily May 19, 2024 12:00am July 16, 2024 9:03am sulfamethoxazole 800 mg / trimethoprim 160 mg oral tablet (4 sources) Dihydrofolate Reductase Inhibitor Antibacterial, Sulfonamide Antimicrobial Start: 05-08-2024 End: 07-16-2024 take 1 tablet by mouth twice daily Sulfamethoxazole- Trimethoprim 800-160 mg tablet Discontinued 1 TAB PO Twice daily May 07, 2024 11:00pm July 16, 2024 9:03am Start: 06-25-2023 take 1 tablet by marcelino th every twelve hours Bactrim DS 800-160 MG 1 tablet Orally Twice a day for 10 day(s) Jun, Active Vitamin D3 5000 intl units oral [...] [Unspecified visual loss] Onset: 3 07-18-2022 Chronic Calculus of urinary tract (2 sources) Kidney stone; Translations: [Calculus of kidney] 07-16-2024 Episodic Deficiency and other anemia (5 sources) Anemia 10-25-2020 Episodic Genitourinary congenital anomalies (2 sources) Multiple congenital cysts of kidney; 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, unspecified] Chronic Genitourinary symptoms and ill-defined conditions (14 sources) Urgent desire to urinate; Translations: [Urgency of urination] Onset: 3 Episodic Menopausal disorders (15 sources) Atrophic vaginitis; Translations: [Postmenopausal atrophic vaginitis] [...] of hypertension] Episodic Other connective tissue disease (4 sources) Pain in right lower limb; Translations: [Pain in right leg] 05-07-2024 Episodic Other connective tissue disease (5 sources) Pain in right leg; Translations: [Pain [...] sources) Cyst of kidney 08-22-2022 Episodic Other diseases of kidney and ureters (1 source) Hydronephrosis; Translations: [Unspecified hydronephrosis] 07-16-2024 Episodic Other diseases of kidney and ureters (1 source) Unspecified hydronephrosis; Translations: [Hydronephrosis] 07-16-2024 Episodic Other endocrine disorders (7 sources) Hyperparathyroidism; [...] conditions (not mental disorders or infectious disease) (8 sources) Elevated liver enzymes level; Translations: [Other specified abnormal findings of blood chemistry] 01-24-2024 Episodic Other upper respiratory disease (2 sources) Allergic rhinitis; Translations: [Allergic rhinitis, unspecified] Onset: 6 Chronic Other upper respiratory infections (2 sources) Chronic sinusitis; Translations: [Chronic sinusitis, unspecified] Chronic Phlebitis; thrombophlebitis and thromboembolism (10 sources) Phlebitis; Translations: [Phlebitis and thrombophlebitis of [...] negative bacilli - 2 Days PERFORMED BY: [place], [place] [id number] PATHOLOGIST RESTAURANT INSPECTOR ZAIDA Sumner [facility] Comment on above: Performed By: #### C UU #### [facility] [address] [id number] [facility] Urine cultureOrdered By: Yesenia Mcwilliams on 07-08-2024 Bacteria identified Cx Nom (U) Urine culture [facility] Activated partial thrombopla stin time (aPTT) in platelet poor plasma by coagulation aon 05-01-2024 aPTT Coag (PPP) [Time] 30.5 s 22.3-36.2 [facility] a[facility] Coag (PPP) [Time] Activated partial thromboplastin time (aPTT) in platelet poor plasma by coagulation a 22.3-36.2 [facility] Basophils Auto (Bld) [#/Vol] on 05-01-2024 Basophils (Bld) [#/Vol] 0.0 10 3/uL 0.0-0.1 [facility] Basophils (Bld) [#/Vol] Automated basoph il count 0.0-0.1 [facility] Basophils/100 WBC Auto (Bld) on 05-01-2024 Basophils/100 WBC (Bld) 0.7 % 0.2-2.0 F [facility] Basophils/100 WBC (Bld) Automated basophil % 0. 2-2.0 [facility] Eosinophils/100 WBC Auto (Bl d)on 05-01-2024 Eosinophils/100 WBC (Bld) 3.8 % 0.9-7.0 [facility] Eosinophils/100 WBC (Bld) Automated eosinophil % 0.9-7.0 [facility] Erythrocyte distribution wid th Auto (RBC) [Ratio]on 05-01-2024 Erythrocyte distribution width (RBC) [Ratio] 14.4 % 11.0-15.0 [facility] Erythrocyte distribution width (RBC) [Ratio] Erythrocyte distribution width [Ratio] by Automated count 11.0-15.0 [facility] Estimated glomerular filtrat ion rate (GFR) non- Americanon 05-01-2024 GFR/1.73 sq M.predicted among non-blacks MDRD (S/P/Bld) [Vol rate/Area] 51 mL/min/{1.73_m2} Low >=60 mL/min/1.73m 2 [facility] GFR/1.73 sq M.predicted among non-blacks MDRD (S/P/Bld) [Vol rate/Area] Estimated glomerular filtration rate (GFR) non- Low >=60 mL/min/1.73m 2 [facility] Globulin Calc (S) [Mass/Vol] on 05-01-2024 Globulin (S) [Mass/Vol] 4.3 g/dL [facility] Globulin (S) [Mass/Vol] Serum globulin measurement by calculation (mass/volume) [facility] Hematocrit Auto (Bld) [Volum e fraction]on 05-01-2024 Hematocrit (Bld) [Volume fraction] 39.1 % 36.0-48.0 [facility] Hematocrit (Bld) [Volume fraction] Hematocrit [Volume Fraction] of Blood by Automated count 36.0-48.0 [facility] Hemoglobin [Mass/volume] in Bloodon 05-01-2024 Hemoglobin (Bld) [Mass/Vol] 13.1 g/dL 12.0-16.0 [facility] Hemoglobin (Bld) [Mass/Vol] Hemoglobin [Mass/volume] in Blood 12.0-16.0 [facility] INR in Platelet poor plasma by Coagulation assayon 05-01-2024 INR Coag (PPP) [Relative time] 1.07 {INR} [facility] Comment on above: DESIRED INR:2.0-3.0 CONDITIONS NOT LISTED BELOW2.5-3.5 FOR PROSTHETIC HEART VALVE REPLACEMENT2.5-3.5 RECURRENT THROMBOSIS INR Coag (PPP) [Relative time] INR in Platelet poor plasma by Coagulation assay [facility] Comment on above: DESIRED INR:2.0-3.0 CONDITIONS NOT LISTED BELOW2.5-3.5 FOR PROSTHETIC HEART VALVE REPLACEMENT2.5-3.5 RECURRENT THROMBOSIS Laboratory - Chemistry and C hemistry - challengeon 05-01-2024 Bilirubin Ql (U) Negative NEGATIVE [facility] Glucose (U) [Mass/Vol] Negative NEGATIVE Fi [facility] Ketones Ql (U) Negative NEGATIVE [facility] pH (U) 6.0 [pH] 5.0-9.0 [facility] Specific gravity (U) [Rel density] 1.020 1.005-1.025 [facility] Urobilinogen Qn (U) 0.2 {Diana'U}/dL 0.2-1.0 [facility] Albumin [Mass/Vol] 2.9 g/dL Low 3.4-5.0 [facility] ALP [Catalytic activity/Vol] 196 U/L High 46-116 [facility] ALT [Catalytic activity/Vol] 44 U/L 14-59 [facility] AST [Catalytic activity/Vol] 51 U/L High 15-37 [facility] Bilirubin [Mass/Vol] 0.7 mg/dL 0.2-1.0 [facility] Bilirubin.direct [Mass/Vol] 0.2 mg/dL 0.0-0.2 [facility] Calcium [Mass/Vol] 9.1 mg/dL 8.5-10.1 [facility] Chloride [Moles/Vol] 107 mmol/L 98-107 [facility] CO2 [Moles/Vol] 25.8 mmol/L 21.0-32.0 [facility] Creatinine [Mass/Vol] 1.05 mg/dL High 0.55-1.02 [facility] GFR/1.73 sq M.predicted MDRD (S/P/Bld) [Vol rate/Area] mL/min/{1.73_m2} >=60 mL/min/1.73m 2 [facility] Glucose [Mass/Vol] 84 mg/dL 74-106 [facility] Potassium [Moles/Vol] 3.7 mmol/L 3.5-5.1 [facility] Protein [Mass/Vol] 7.2 g/dL 6.4-8.2 [facility] Sodium [Moles/Vol] 143 mmol/L 136-145 [facility] Urea nitrogen [Mass/Vol] 20.0 mg/dL High 7.0-18.0 [facility] Urea nitrogen/Creatinine [Mass ratio] 19.0 mg/mg [facility] Laboratory - Hematology and Cell countson 05-01-2024 Immature granulocytes/100 WBC (Bld) 0.2 % 0.0-0.5 [facility] Laboratory - Specimen inform ationon 05-01-2024 Appearance (U) CLEAR CLEAR [facility] Color (U) YELLOW YELLOW [facility] Laboratory - Urinalysison Leukocyte esterase Test strip Ql (U) Negative NEGATIVE [facility] Nitrite Ql (U) Negative NEGATIVE [facility] Protein Ql (U) Negative NEG/TRACE [facility] Leukocytes [#/volume] correc reji for nucleated erythrocytes in Blood by Automated counon 05-01-2024 WBC corrected for nucl RBC Auto (Bld) [#/Vol] 4.5 10 3/uL 4.0-11.0 [facility] WBC corrected for nucl RBC Auto (Bld) [#/Vol] Leukocytes [#/volume] corrected for nucleated erythrocytes in Blood by Automated coun 4.0-11.0 [facility] Lymphocytes Auto (Bld) [#/Vo l]on 05-01-2024 Lymphocytes (Bld) [#/Vol] 2.0 10 3/uL 1.2-3.8 [facility] Lymphocytes (Bld) [#/Vol] Lymphocytes [#/volume] in Blood by Automated count 1.2-3.8 [facility] Lymphocytes/100 WBC Auto (Bl d)on 05-01-2024 Lymphocytes/100 WBC (Bld) 43.8 % 20.5-60.0 [facility] Lymphocytes/100 WBC (Bld) Lymphocytes/100 leukocytes in Blood by Automated count 20.5-60.0 [facility] MCH Auto (RBC) [Entitic mass ]on 05-01-2024 MCH (RBC) [Entitic mass] 34.5 pg High 26.7-34.0 [facility] MCH (RBC) [Entitic mass] MCH [Entitic mass] by Automated count High 26.7-34.0 [facility] MCHC Auto (RBC) [Mass/Vol]on 05-01-2024 MCHC (RBC) [Mass/Vol] 33.5 g/dL 29.9-35.2 [facility] MCHC (RBC) [Mass/Vol] MCHC [Mass/volume] by Automated count 29.9-35.2 [facility] MCV Auto (RBC) [Entitic vol] on 05-01-2024 MCV (RBC) [Entitic vol] 102.9 fL High 81.0-99.0 [facility] MCV (RBC) [Entitic vol] MCV [Entitic vol ume] by Automated count High 81.0-99.0 [facility] Monocytes Auto (Bld) [#/Vol] on 05-01-2024 Monocytes (Bld) [#/Vol] 0.6 10 3/uL 0.3-0.8 [facility] Monocytes (Bld) [#/Vol] Automated blood monocyte count 0.3-0.8 [facility] Monocytes/100 WBC Auto (Bld) on 05-01-2024 Monocytes/100 WBC (Bld) 13.8 % High 1.7-12.0 [facility] Monocytes/100 WBC (Bld) Automated monocyte % High 1. 7-12.0 [facility] Neutrophils Auto (Bld) [#/Vo l]on 05-01-2024 Neutrophils (Bld) [#/Vol] 1.7 10 3/uL 1.4-6.5 [facility] Neutrophils (Bld) [#/Vol] Neutrophils [#/volume] in Blood by Automated count 1.4-6.5 [facility] Neutrophils/100 WBC Auto (Bl d)on 05-01-2024 Neutrophils/100 WBC (Bld) 37.7 % Low 43.0-75.0 [facility] Neutrophils/100 WBC (Bld) Automated neutrophil % Low 43.0-75.0 [facility] No Panel Informationon 05-01 Urine Microscopic Review NO [facility] Urine Occult Blood Negative NEGATIVE [facility] Eosinophils # (Auto) 0.2 10 3/uL 0.0-0.7 [facility] Immature Granulocyte # (Auto) 0.01 10 3/uL 0.00-0.03 [facility] No Panel InformationOrdered By: Johny Perdomo on 05-01-2024 MRSA Screening Culture [facility] Platelet mean volume Auto (B ld) [Entitic vol]on 05-01-2024 Platelet mean volume (Bld) [Entitic vol] 12.6 fL 9.5-13.5 [facility] Platelet mean volume (Bld) [Entitic vol] Platelet mean volume [Entitic volume] in Blood by Automated count 9.5-13.5 [facility] Platelets Auto (Bld) [#/Vol] on 05-01-2024 Platelets (Bld) [#/Vol] 266 10 3/uL 150-450 [facility] Platelets (Bld) [#/Vol] Platelets [#/vol ume] in Blood by Automated count 150-450 [facility] Prothrombin time (PT)on 04-14 PT Coag (PPP) [Time] 11.3 s 9.0-11.6 [facility] PT Coag (PPP) [Time] Prothrombin time (PT) 9.0- 11.6 [facility] RBC Auto (Bld) [#/Vol]on RBC (Bld) [#/Vol] 3.80 10 6/uL Low 4.20-5.40 [facility] RBC (Bld) [#/Vol] Erythrocytes [#/volume] in Blood by Automated count Low 4.20-5.40 [facility] Serum or plasma albumin/glob ulin mass ratioon 05-01-2024 Albumin/Globulin [Mass ratio] 0.7 {ratio} [facility] Albumin/Globulin [Mass ratio] Serum or plasma albumin/globulin mass ratio [facility] Serum or plasma anion gap de terminationon 05-01-2024 Anion gap [Moles/Vol] 13.9 mmol/L [facility] Anion gap [Moles/Vol] Serum or plasma an ion gap determination [facility] C Urineon 01-19-2024 Bacteria identified [...] Locations R1: This test was performed at: [facility], [address] [place] [address], [id number]- , [place], Normal [facility] Comment on above: Performed By: #### 2 [id number] #### [facility] [address] [place] [id number] Ambulatory Visit Summaryon 0 01-15-2024 Ambulatory Visit [...] Follow Up with Gage JACOB, Katie Arteaga, KEKE, URO When: Where: [address] [place] [phone] Medications What How Much When Instructions Unchanged estradiol topical (Estrace 0.1 mg/ g Cream) See instructions Apply pea-sized amound around the opening of the urethra 3 times per week for 1 month then 2 times per week after for maintenance. Pickup at [facility] Unchanged biotin (biotin 5000 mcg oral capsule) Contact prescribing physician if questions or concerns Unchanged cholecalciferol (Vitamin D3 5000 intl units oral capsule) 1 Capsules By Mouth Every day with food Contact prescribing physician if questions or concerns Unchanged fexofenadine (Mary) By Mouth Contact prescribing physician if questions or concerns Pharmacy Information [facility]: [address] [place] [phone] Allergies codeine (nausea) Problems Ongoing - Any [...] to (more content not included)... Normal [facility] Urology Office/Clinic Noteon 01-15-2024 Urology [...] Information Gage JACOB, Katie Arteaga, URL, URO [address], [place] [phone] Additional Instructions: pt's choice on when to [...] Osteopeni (more content not included)... Normal [facility] Comment on above: Result Comment: Elec tronically Signed By: Katie Almonte MD\.br\Date and Time Signed: 01/15/24 23:28 EDT\.br\Electronically Co-Signed By: Yuliana Olson\.br\Date and Time Co-Signed: 01/15/24 11:27 EDT [place] 02-21-2023 Screens [id number] Normal [facility] Patient Educationon 02-21-20 Patient Education [...] these instructions at home: Medicines ? Take aozp-oyy-sumlsml and prescription medicines only as told by [...] provider. Document Revised: 02/10/2021 Document Reviewed: 02/10/2021 [employer] Patient Education ? 2022 [employer] Normal [facility] Urology Office/Clinic Noteon 02-20-2023 Urology [...] exam (more content not included)... Normal [facility] Comment on above: Result Comment: Elec tronically Signed By: Katie Almonte MD\.br\Date and Time Signed: 02/20/23 12:03 EDT\.br\Electronically Co-Signed By: Sepideh Perez\.br\Date and Time Co-Signed: 02/20/23 11:49 EDT Covid-19 PCR (CVDTB)on 07-15 SARS-CoV-2 (COVID-19) RNA AZUL+probe Ql (Unsp spec) Not detected Normal NOT DETECTED [facility] Comment on above: Result Comment: This test is not yet approved or cleared by the [place] FDA. When there are no FDA-approved or cleared tests available, and other criteria are met, FDA can make tests available under an emergency access mechanism called an Emergency Use Authorization (EUA). The EUA for this test is supported by the [employer] Intern of Health and Human Service's (HHS's) declaration [...] SARS-CoV-2. Performed By: #### C VDTBH #### [facility] [address] [place] [address] Dr. Manjula Arzate CREATININEon 06-13-2022 Creatinine [Mass/Vol] 0.98 mg/dL Normal 0.55-1.02 [facility] Comment on above: Performed By: #### C JESUS #### [facility] [address] [address] [address] Manjula Arzate EGFR-AF IRISH >60 Normal >=60 [facility] Comment on above: Performed By: #### C JESUS #### [facility] [address] [place], [place] [address] Dr. Manjula Arzate EGFR-NON AF IRISH 55 mL/min/1.73m2 Critically low >=60 [facility] Comment on above: Performed By: #### C JESUS #### [facility] [address] ABD/PELV W CONon [...] by: DARIO BESS Date: 2022-06-13 17:40 Normal [facility] CT ABD/PELVIS WO CONon 11-27 [...] by: DARIO BESS Date: 2021-11-27 10:41 Normal [facility] Vital Signs Date Time Vital Sign Value Performing Clinician Facility 07-16-2024 08:56-0500 Body height 165.1 cm Maryan Mcwilliams MD Work Phone: [facility] 07-16-2024 08:56-0500 Body mass index (BMI) [Ratio] 34.4 kg/m2 Maryan Mcwilliams MD Work Phone: [facility] 07-16-2024 08:56-0500 Body weight 93.89 kg Maryan Mcwilliams MD Work Phone: [facility] 07-16-2024 08:56-0500 Diastolic blood pressure 66 mm[Hg] Maryan Mcwilliams MD Work Phone: [facility] 07-16-2024 08:56-0500 Heart rate 83 /min Maryan Mcwilliams MD Work Phone: [facility] 07-16-2024 08:56-0500 Systolic blood pressure 112 mm[Hg] Maryan Mcwilliams MD Work Phone: [facility] 06-10-2024 15:24-0500 Body height 167.6 cm Zaida Child MD Work Phone: [facility] 06-10-2024 15:24-0500 Body mass index (BMI) [Ratio] 32.28 kg/m2 Zaida Child MD Work Phone: [facility] 06-10-2024 15:24-0500 Body weight 90.72 kg Zaida Child MD Work Phone: [facility] 06-10-2024 15:24-0500 Diastolic blood pressure 84 mm[Hg] Zaida Child MD Work Phone: [facility] 06-10-2024 15:24-0500 Systolic blood pressure 132 mm[Hg] Zaida Child MD Work Phone: [facility] 05-28-2024 11:08-0500 Body height 167.6 cm Zaida Child MD Work Phone: [facility] 05-28-2024 11:08-0500 Body mass index (BMI) [Ratio] 33.09 kg/m2 Zaida Child MD Work Phone: [facility] 05-28-2024 11:08-0500 Body temperature 97.39 [degF] Zaida Child MD Work Phone: [facility] 05-28-2024 11:08-0500 Body weight 92.99 kg Zaida Child MD Work Phone: [facility] 05-28-2024 11:08-0500 Diastolic blood pressure 84 mm[Hg] Zaida Child MD Work Phone: [facility] 05-28-2024 11:08-0500 Heart rate 72 /min Zaida Child MD Work Phone: [facility] 05-28-2024 11:08-0500 SaO2% (BldA) [Mass fraction] 97 % Zaida Child MD Work Phone: [facility] 05-28-2024 11:08-0500 Systolic blood pressure 146 mm[Hg] Zaida Child MD Work Phone: [facility] 05-19-2024 11:18-0500 Body height 165.1 cm [facility] 05-19-2024 11:18-0500 Body mass index (BMI) [Ratio] 33.1 kg/m2 [facility] 05-19-2024 11:18-0500 Body weight 90.26 kg [facility] 05-19-2024 11:18-0500 Diastolic blood pressure 76 mm[Hg] [facility] 05-19-2024 11:18-0500 Heart rate 91 /min [facility] 05-19-2024 11:18-0500 Systolic blood pressure 114 mm[Hg] [facility] 05-07-2024 14:39-0400 Body height 165.1 cm [facility] 05-07-2024 14:39-0400 Body mass index (BMI) [Ratio] 33.7 kg/m2 [facility] 05-07-2024 14:39-0400 Body weight 92.07 kg [facility] 05-07-2024 14:39-0400 Diastolic blood pressure 79 mm[Hg] [facility] 05-07-2024 14:39-0400 Heart rate 76 /min [facility] 05-07-2024 14:39-0400 Systolic blood pressure 116 mm[Hg] [facility] 04-29-2024 08:21-0400 Body height 165.1 cm [facility] 04-29-2024 08:21-0400 Body mass index (BMI) [Ratio] 33.8 kg/m2 [facility] 04-29-2024 08:21-0400 Body weight 92.3 kg [facility] 04-29-2024 08:21-0400 Diastolic blood pressure 82 mm[Hg] [facility] 04-29-2024 08:21-0400 Heart rate 74 /min [facility] 04-29-2024 08:21-0400 Respiratory rate 16 /min [facility] 04-29-2024 08:21-0400 SaO2% (BldA) [Mass fraction] 96 % [facility] 04-29-2024 08:21-0400 Systolic blood pressure 120 mm[Hg] [facility] 01-24-2024 10:54-0400 Body height 165.1 cm [facility] 01-24-2024 10:54-0400 Body mass index (BMI) [Ratio] 35.6 kg/m2 [facility] 01-24-2024 10:54-0400 Body weight 97.06 kg [facility] 01-24-2024 10:54-0400 Diastolic blood pressure 81 mm[Hg] [facility] 01-24-2024 10:54-0400 Heart rate 71 /min [facility] 01-24-2024 10:54-0400 Systolic blood pressure 121 mm[Hg] [facility] 01-15-2024 10:37-0400 Blood Pressure Location Katie Lue [facility] 01-15-2024 10:37-0400 Body temperature 97.88 [degF] Katie Lue [facility] 01-15-2024 10:37-0400 Diastolic blood pressure 78 mm[Hg] Katie Lue [facility] 01-15-2024 10:37-0400 Heart rate 71 /min Katie Lue [facility] 01-15-2024 10:37-0400 Systolic blood pressure 132 mm[Hg] Katie Lue [facility] 02-20-2023 10:53-0400 Blood Pressure Location Katie Lue [facility] 02-20-2023 10:53-0400 Diastolic blood pressure 76 mm[Hg] Katie Lue [facility] 02-20-2023 10:53-0400 Heart rate 68 /min Katie Lue [facility] 02-20-2023 10:53-0400 Respiratory rate 16 /min Katie Lue [facility] 02-20-2023 10:53-0400 Systolic blood pressure 130 mm[Hg] Katie Lue [facility] 08-22-2022 11:50-0500 Blood Pressure Location Katie Lue [facility] 08-22-2022 11:50-0500 Diastolic blood pressure 78 mm[Hg] Katie Lue [facility] 08-22-2022 11:50-0500 Heart rate 68 /min Katie Lue [facility] 08-22-2022 11:50-0500 Respiratory rate 16 /min Katie Lue [facility] 08-22-2022 11:50-0500 Systolic blood pressure 132 mm[Hg] Katie Almonte [facility] 12-05-2021 10:33-0400 Diastolic blood pressure 81 mm[Hg] Mally Key Jr. [facility] 12-05-2021 10:33-0400 Mean blood pressure 101 mm[Hg] Mally Key Jr. [facility] 12-05-2021 10:33-0400 Systolic blood pressure 142 mm[Hg] Mally Key Jr. [facility] 12-05-2021 10:12-0400 Blood Pressure Location Mally Key Jr. [facility] 12-05-2021 10:12-0400 Diastolic blood pressure 97 mm[Hg] Mally Key Jr. [facility] 12-05-2021 10:12-0400 Heart rate 87 /min Mally Key Jr. [facility] 12-05-2021 10:12-0400 Respiratory rate 16 /min Mally Key Jr. [facility] 12-05-2021 10:12-0400 Systolic blood pressure 163 mm[Hg] Mally Key Jr. [facility] Encounters Encounter Date Encounter Type Care Provider Facility Start: 07-16-2024 End: 07-16-2024 ambulatory Maryan Mcwilliams MD Work Phone: [facility] Work Phone: Start: 07-16-2024 End: 07-16-2024 Patient encounter procedure Maryan Mcwilliams MD Work Phone: [facility] Work Phone: Start: 07-09-2024 Non-patient / Non-visit Maryan Mcwilliams MD Work Phone: [facility] Work Phone: Start: 07-08-2024 End: 07-08-2024 ambulatory Maryan Mcwilliams Facility:[facility] Start: 07-08-2024 End: 07-08-2024 Departed Referred Maryan Mcwilliams MD Work Phone: [facility] Start: 06-10-2024 End: 06-10-2024 Office outpatient visit 15 minutes Zaida Child MD Work Phone: [facility] Comment on above: Superficial phlebiti s and thrombophlebitis of right lower extremity (Primary Dx); Varicose veins of bilateral lower extremities with pain Start: 06-10-2024 End: 06-10-2024 ambulatory ZAIDA CHILD [facility] Start: 06-03-2024 End: 06-04-2024 Orders Only [...] with pain Start: 05-19-2024 End: 05-19-2024 ambulatory [facility] Work Phone: Start: 05-19-2024 End: 05-19-2024 Patient encounter procedure [facility] Work Phone: Start: 05-07-2024 Non-patient / Non-visit [facility] Work Phone: Start: 05-07-2024 End: 05-07-2024 ambulatory [facility] Work Phone: Start: 05-07-2024 End: 05-07-2024 Patient encounter procedure [facility] Work Phone: Start: 2024 Non-patient / Non-visit [facility] Work Phone: Start: 05-03-2024 Non-patient / Non-visit Maryan Mcwilliams MD Work Phone: [facility] Work Phone: Start: 05-01-2024 Patient encounter status [facility] Start: 05-01-2024 Non-patient / Non-visit [facility] Work Phone: Start: 04-29-2024 End: 04-29-2024 ambulatory [facility] Work Phone: Start: 04-29-2024 End: 04-29-2024 Encounter for other preprocedural examination Maryan Mcwilliams MD Work Phone: [facility] Start: 04-29-2024 End: 04-29-2024 Patient encounter procedure [facility] Work Phone: Start: 04-10-2024 End: 04-10-2024 ambulatory Johny Perdomo DO Facility:[facility] Start: 03-20-2024 ambulatory Johny willis DO Facility:[facility] Start: 02-05-2024 Patient encounter procedure [facility] Start: 01-24-2024 End: 01-24-2024 ambulatory [facility] Work Phone: Start: 01-24-2024 End: 01-24-2024 Patient encounter procedure [facility] Work Phone: Start: 01-15-2024 End: 01-15-2024 ambulatory Katie M. Lue [facility] Start: 01-15-2024 End: 01-15-2024 Lab Drop off Katie M. Lue [facility] Start: 01-15-2024 End: 01-15-2024 ambulatory Katie M. Lue Facility:[facility] Start: 01-15-2024 End: 01-15-2024 Patient encounter procedure Katie M. Lue [facility] Start: 08-01-2023 End: 08-01-2023 ambulatory Hafsa Knowles Other [facility] Other Start: 08-01-2023 Telephone encounter Hafsa Knowles [facility] Start: 07-30-2023 End: 07-30-2023 ambulatory Hafsa Knowles Other [facility] Other Start: 07-30-2023 Telephone encounter Hafsa Knowles [facility] Start: 02-20-2023 End: 02-20-2023 ambulatory Katie M. Lue Facility:[facility] [place] Start: 02-20-2023 End: 02-20-2023 Patient encounter procedure Katie M. Lue [facility] Start: 08-22-2022 End: 08-22-2022 Patient encounter procedure Katie M. Lue [facility] Start: 08-01-2022 End: 08-01-[address] ANTWON BAKER Facility:[facility] Start: 07-30-2022 End: 07-31-[address] ANTWON BAKER Facility:[facility] Start: 07-12-2022 Adult health examination Vanessa Knowles Other [employer] Other Start: 06-13-2022 End: 06-14-[address] HAFSA KNOWLES Facility:[facility] Start: 12-05-2021 End: 12-05-2021 Patient encounter procedure Mally Key Jr. [facility] Start: 11-27-2021 End: 11-28-[address] MALLY KEY JR Facility:[facility] Procedures Date Procedure Procedure Detail Performing Clinician Start: 07-08-2024 Urine culture Maryan Brody MD Work Phone: Start: 05-01-2024 MRSA Screening Culture Start: 07-29-2019 [...] Mally gilbert Jr. Bilateral cataracts (disorder) Mally Shahid Ontiveros Ligation of fallopian tube D prashanth Key Screening for malign ant neoplasm of breast Hafsa Knowles Other Plan of Treatment Date Care Activity Detail Author Start: 06-10-2025 Tobacco Screening Tobacco Screening [facility] Start: 05-28-2025 Tobacco Screening Tobacco Screening [facility] Start: 06-25-2024 End: 06-25-2024 Patient encounter procedure 06/25/2024 9:20 AM EST Office Visit [facility] [address] [place] [phone] Zaida Child MD [address], [address] [address] [facility] Start: 06-18-2024 End: 06-18-2024 Patient encounter procedure 06/18/2024 10:20 AM EST Office Visit [facility] [address] [place] [phone] Zaida Child MD [address], [address] [address] [facility] Start: 05-19-2024 Patient referral [facility] Work Phone: Start: 03-15-2024 COVID-19 Vaccine ( season) COVID-19 Vaccine ( season) [facility] Start: 07-20-2023 Tobacco Screening Tobacco Screening [facility] Start: 2012 Fall Risk Screening Fall Risk Screen ing [facility] Start: 1966 DTaP,Tdap and Td Vaccines (1 - Tdap) DTaP,Tdap and Td Vaccines (1 - Tdap) [facility] Start: 1959 [facility] Views for bone density [facility] MG Breast - bilatera l Screening [facility] Patient referral [facility] Work Phone: US Lower extremity v ein - right [facility] XR Tibia and Fibula - right 2 Views [facility] Immunizations Immunization Date Immunization Notes Care Provider Fa cility 04-10-2022 SARS-CoV-2 (COVID-19 ) [id number] Katie Lue [facility] 04-11-2021 SARS-CoV-2 (COVID-19 ) mRNA BNT-162b2 vax Katie Lue [facility] 02-15-2021 zoster vaccine recombinant Katie Lue [facility] 11-30-2020 zoster vaccine recombinant Katie Lue [facility] 08-30-2020 SARS-CoV-2 (COVID-19 ) mRNA BNT-162b2 vax Katie Lue [facility] Comment on above: Result Comment: 2022: [id number] 08-09-2020 SARS-CoV-2 (COVID-19 ) mRNA BNT-162b2 vax Katie Lue [facility] Comment on above: Result Comment: 2022: [id number] 05-16-2020 influenza virus vaccine, split virus (incl. purified surface antigen) Hafsa Knowles Other [facility] Other 05-16-2020 influenza virus vaccine, unspecified formulation [facility] 04-26-2020 influenza virus vaccine, unspecified formulation Katie Lue [facility] 12-16-2018 pneumococcal polysaccharide vaccine, 23 valent Hafsa Knowles Other [facility] 11-07-2017 pneumococcal conjuga te vaccine, 13 valent Mally Key Jr. [facility] 11-07-2017 pneumococcal Conjuga te, unspecified formulation; Translations: [Need for prophylactic vaccination against Streptococcus pneumoniae (pneumococcus)] Hafsa Knowles Other [facility] Other 10-13-2017 pneumococcal polysaccharide vaccine, 23 valent Katie Gage [facility] 04-14-2017 influenza virus vaccine, unspecified formulation Katie Almonte [facility] Payers Date Payer Category Payer Self-pay 2020 Commercial [employer]emnity [facility] [id number] 2012 Medicare 2012 Unknown 1959 Medicare [id number] 1959 Unknown [id number] 1947 Unknown [id number] 93 1947 Unknown [id number] 93 1947 Unknown [id number] 93 1947 Unknown [id number] 93 1947 Unknown [id number] 27 1947 Unknown [id number] 27 1947 Unknown [id number] 27 1947 Unknown [id number] 96 1947 Unknown [id number] 286 Medicare Medicare [id number] Unknown [id number] 31 Social History Date Type Detail Facility Start: 12-05-2021 End: 07-23-2023 Tobacco smoking status Never smoked tobacco (finding) [facility] Start: 05-28-2024 End: 06-10-2024 Sex Assigned At Female [facility] Tobacco smoking status Never [facility] Start: 1945 Sex Assigned At Female [facility] Start: 07-18-2022 Tobacco use and exposure Smokeless tobacco non-user [facility] Start: 05-28-2024 End: 06-10-2024 Alcoholic beverage intake Lifetime non-drinker (finding) [facility] Start: 05-28-2024 End: 06-10-2024 History of Social function [facility] Start: 07-18-2022 Alcohol Comment [facility] Start: 1945 Sex assigned at Not on file P Alfonso [facility] Start: 05-31-2021 End: 07-16-2024 Sex Female (finding) [facility] Functional Status Date Assessment Result Facility 01-15-2024 Functional Status N/A [facility] 02-20-2023 Functional Status N/A [facility] 08-22-2022 Functional Status N/A [facility] Clinical Notes 12-05-2021 to 06-10-2024 Assessment [...] ultrasound compression stockings leg elevation and exercise. [facility] 06-10-2024 Evaluation + Plan note Associated Problem(s): Superficial phlebitis and thrombophlebitis of right lower extremity Warm compresses nonsteroidal anti-inflammatory drugs leg elevation and compression therapy. We will get venous reflux ultrasound and rule out DVT as well. [facility] 06-10-2024 Miscellaneous Notes Associated Problem(s): Varicose veins of bilateral lower extremities with pain Venous reflux ultrasound compression stockings leg elevation and exercise. Associated Problem(s): Superficial phlebitis and thrombophlebitis of right lower extremity Warm compresses nonsteroidal anti-inflammatory drugs leg elevation and compression therapy. We will get venous reflux ultrasound and rule out DVT as well. [facility] History of Presen t illness Narrative [...] given by office. Patient was given a [employer] coupon voucher to use, this is not [...] 06/14/2021 Performed by Vic Hitchcock DO at [facility] BREAST SURGERY bx, marker in place [...] Zaida Child MD, TRIPP, RPVI, FSVS, FACS [facility] This note was created with the assistance of a speech recognition program. While intending to generate a timely document that accurately reflects the content of the visit, no guarantee can be provided that every grammatical or spelling mistake has been or will be identified or corrected. Thank you for your understanding. documented in this encounter [facility] 05-28-2024 Evaluation + Plan note Associated Problem(s): Varicose veins of bilateral lower extremities with pain Compression stockings leg elevation exercise. Venous reflux ultrasound. [facility] 05-28-2024 Miscellaneous Notes Associated Problem(s): Varicose veins of bilateral lower extremities with pain Compression stockings leg elevation exercise. Venous reflux ultrasound. Associated Problem(s): Superficial phlebitis and thrombophlebitis of right lower extremity Nonsteroidal anti-inflammatory drugs warm compresses leg elevation and compression therapy when possible documented in this encounter [facility] 05-28-2024 Evaluation + Plan note Associated Problem(s): Superficial phlebitis and thrombophlebitis of right lower extremity Nonsteroidal anti-inflammatory drugs warm compresses leg elevation and compression therapy when possible [facility] 05-28-2024 History of Presen t illness [...] 06/14/2021 Performed by Vic Hitchcock DO at [facility] BREAST SURGERY bx, marker in place [...] extremity Right leg pain - [facility] [place] [place] Phlebitis and thrombophlebitis of unspecified site - [facility] [place] [place] Varicose veins of bilateral lower extremities with pain aZida Child MD, TRIPP, RPVI, FSVS, FACS [facility] This note was created with the assistance of a speech recognition program. While intending to generate a timely document that accurately reflects the content of the visit, no guarantee can be provided that every grammatical or spelling mistake has been or will be identified or corrected. Thank you for your understanding. documented in this encounter [facility] [employer] [facility] 04-29-2024 Evaluation note Diagnosis Onset Date Resolution Preoperative examination acute April 29 11:24am Right leg pain acute May 072023 2:12pm Phlebitis acute May 19, 2024 11:09am Right leg pain acute May 192023 11:09am Hydronephrosis, right acute Enrico uary 2024 8:54am Kidney stone acute July 16, 2024 8:54am [facility] Work Phone: 1(442) 376-588509-27-2024 NoteProcedure: MRI of the right knee without contrast. Sequences: Sagittal T2 [...] Is Signed, Electronically Signed in Other Vendor System)[facility]09-27-2024 NoteProcedure: MRI of the right knee without contrast. Sequences: Sagittal T2 [...] Is Signed, Electronically Signed in Other Vendor System)[facility]07-03-2024 Evaluation + Plan note Diagnostic Tests Pending * Urine Culture 01/15/24 [facility]07-03-2024 Hospital Discharge instructions Patient Education 01/15/2024 11:24:08 Kegel Exercises [...] muscles. These are the same muscles you squeezewhen you [...] provider. Document Revised: 11/09/2021 Document Reviewed: 11/09/2021 [employer] Patient Education 2022 [employer]Early. Follow Up Care 02/20/2023 12:02:25 With:Gaeg JACOB, HARSH CarreraL, URO Address: [address], [place] [phone] When: Unknown [facility] [place] 07-03-2024 NotePatient Education Obstetrics and Gynecology Kegel Exercises Kegel [...] muscles. These are the same muscles you squeezewhen you [...] provider. Document Revised: 11/09/2021 Document Reviewed: 11/09/2021 [employer] Patient Education ? 2022 [employer]Early.[facility] 07-30-2023 Evaluation note* Encounter Date Diagnosis Assessment Notes Treatment Notes Treatment Clinical Notes Jul, Acute non-recurrent maxillary sinusitis (ICD-10 - J01.00) [facility] Other 08-09-2023 Hospital Discharge instructions Patient Education 02/20/2023 09:58:29 Urinary Tract Infection, Adult, Ugzg-tf-Wyll Urinary Tract Infection, Adult A urinary tract [...] Follow these instructions at home: Medicines Take lrbm-csj-bieuqmt and prescription medicines only as told by [...] provider. Document Revised: 02/10/2021 Document Reviewed: 02/10/2021 [employer] Patient Education 2022 [employer]Early. Follow Up Care 08/22/2022 12:56:32 With:Gage JACOB, KEKE Carrera, URO Address: When:Within 1 Year(s) [facility] 02-08-2023 Hospital Discharge instructions Patient Education [...] 06/17/2013 Document Revised: 02/18/2019 Document Reviewed: 02/18/2019 [employer] Patient Education 2020 [employer]Early. Follow Up Care 06/13/2022 11:42:12 With:Gage JACOB, KEKE Carrera, URO Address: When: Unknown [facility] 05-24-2022 Hospital Discharge instructions Patient Education [...] provider gives to you. In general: Take phhm-osy-pmxqfyk and prescription medicines only as told by [...] 01/26/2015 Document Revised: 08/07/2018 Document Reviewed: 08/07/2018 [employer] Patient Education 2019 [employer]Early. Follow Up Care 06/07/2021 13:20:37 With:Shahid Ontiveros MD, Mally Mendiola, URO Address: [facility] [address], [place] [address]- When: Unknown [facility] evaluation + Plan note No data available for this section [facility] evaluation + Plan note Future Appointments Appointment Date:02/20/2023 10:45:00 AM Scheduled Provider:Katie Almonte MD Location:[facility] Appointment Type:URO Office Visit [facility] evaluation + Plan note Future Appointments Appointment Date:02/26/2024 10:45:00 AM Scheduled Provider:Katie Almonte MD Location:[facility] Appointment Type:URO Office Visit [facility] evaluation noteNo InformationNost. [facility] [employer] Other evaluation note* Diagnosis Onset Date Resolution Status Menopausal and postmenopausal disorder acute Screening mammogram for breast cancer acute [facility] Work Phone: Evaluation noteNo assessment information available [facility] Work Phone: Evaluation note* Diagnosis Onset Date Resolution Status Preoperative examination acu te Right leg pain acute [facility] Work Phone: Evaluation note* Diagnosis Onset Date Resolution Status Preoperative examination acu te Right leg pain acute Phlebitis acute Right leg pain acute [facility] Work Phone: Evaluation note* Diagnosis Superficial [...] with pain documented in this encounter [facility] N[facility]ative - Reported* Type Description [...] ABOVE SURGERY Hospitalization History CHILD X'S 2 [place] Other Hospital Discharge instructions No data available for this section [facility] instructionsAmbulatory Orders* Referral to Vascular Surgery Time Frame: 05/19/24, Location: None [facility] Work Phone: InstructionsNot on filedocumented in this encounter [facility] filed[facility] in [facility] encounter [facility] filedocumented in [facility] No data available for this section [facility] Summary Purpose Family History Relationship Condition Age [...] Right leg pain Phlebitis Right leg pain Chief Complaint Admit Date Pre-surgical Clearance April 29 11:24am Amb Documentation 2024 9 :46am [facility] f/u lower extremity pain April 2:12pm CC Adult Risk Stratification April 2:19pm Cellulitis f/u May 19, 2024 1 1:09am Unknown July 08, 2024 10:17am Amb Documentation July 09, 2024 10:30am [facility], kidney stone July 16, 2024 8: 54am Reason for Visit Admit Date Preoperative examination April 29, 024 11:24am Right leg pain May 07, 2024 2 :12pm Phlebitis May 19, 2024 1 1:09am Right leg pain May 19, 2024 1 1:09am Hydronephrosis, right July 16, 2024 8:54am Kidney stone July 16, 2024 8: 54am Additional Source Comments INFORMATION SOURCE (unrecogn ized section and content) DATE CREATED AUTHOR 08/02/2022 [facility] DATE CREATED AUTHOR AUTHOR'S ORGANIZ ATION 01/16/2024 [facility] DATE CREATED AUTHOR AUTHOR'S ORGANIZ ATION 01/19/2024 [facility] DATE CREATED AUTHOR AUTHOR'S ORGANIZ ATION 04/11/2024 [facility] DATE CREATED AUTHOR AUTHOR'S ORGANIZ ATION 06/13/2024 [facility] DATE CREATED AUTHOR AUTHOR'S ORGANIZ ATION 07/12/2024 [facility] Patient Care team informatio [...] May 19, 2024 End: May 19, 2024 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 Start Date End Date Hafsa Knowles MD [address] [place] [address] PCP - General Family Medicine 06/01/21 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 Start Date End Date Hafsa Knowles MD [address] [place] [address] PCP - General Family Medicine 06/01/21 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 Start Date End Date Hafsa Knowles MD [address] [place] [address] PCP - General Family Medicine 06/01/21 Team Status: Active Member Role Status Dates Hafsa Knowles MD Primary Care Provider Active Start: May 03, 2024 Lucas Robert DO Attending Provider Active Sta rt: May 03, 2024 Team Status: Inactive Member Role Status Dates Maryan Mcwilliams MD Attending Provider Active Sta rt: July 08, 2024 End: July 08, 2024 Team Status: Active Member Role Status Dates Hafsa Knowles MD Primary Care Provider Active Start: July 09, 2024 Jenniffer Luna CMA Attending Provider Active Start: July 09, 2024 Team Status: Inactive Member Role Status Dates Hafsa Knowles MD Primary Care Provide r, Attending Provider Active Start: July 16, 2024 End: July 16, 2024 REASON FOR VISIT (unrecogniz ed section and content) Reason Comments new patient - right leg pain after cellu litis Specialty Diagnoses / Procedures Referred By Contac t Referred To Contact Vascular Surgery Diagnoses Right leg pain Phlebitis and thrombophlebitis of unspecified site Hafsa Knowles MD [address] [place] [address] Phone: tel: fax: [facility] [address] [place] [address] Phone: tel:[phone] fax: Referral ID Status Reason Start Date Expiration Date Visits Requested Visits Authorized [id number] Pending Review Specialty Services Required 05/20/2024 05/20/2025 [...] BE BASED ON THE PRIMARY CLINICAL RECORDS. [employer] provides no warranty or guarantee of the accuracy or completeness of information in this document.
--- NOTE | 2024-07-28 11:20 | VEINCLINIC_ITS ---
Varicose Veins Patient in today for follow up ultrasound post microfoam chemical ablation left leg Blanco Michel MD personally performed the services described in this documentation, as scribed by Anat Belle RVT, RDMS in my presence and it is both accurate and complete. Anat Michel RVT, RDMS, am scribing for, and in the presence of, Dr. Blanco Sullivan and in the presence of the patient. thigh: bilateral, knee: bilateral, calf: bilateral, ankle: bilateral and anderson: bilateral aching, sharp and tender 3 8 weeks Worsened in recent months: Yes standing analgesics, elevating extremities and compression stockings Reports erythema, bruising, heaviness, limb pain, edema and leg edema History of lower extremity trauma: No Superficial thrombophlebitis: Yes Family history of varicose veins: yes Has patient had previous lower extremity venous surgery: No Patient has previously received the following treatment(s) for lower extremity varicose veins: Reports none Does patient have a history of : yes Does patient intend to have future pregnancies: no Has patient had lower extremity venous scan with relux testing: Yes Support hose used: Yes Problems walking or doing physical activity: Yes How does it affect you: Unable to stand for long periods of time Do you walk much: Yes Do you stand much: Yes Review of Systems ROS Narrative Blanco Michel MD personally performed the services described in this documentation, as scribed by Anat Belle RVT, RDMS in my presence and it is both accurate and complete. Anat Michel RVT, RDMS, am scribing for, and in the presence of, Dr. Blanco Sullivan and in the presence of the patient. Status of ROS 10 or more systems reviewed and unremark able except as noted in history and below Cardiovascular Reports: edema and swelling of feet/ankles Musculoskeletal Reports: extremity pain, extremity swelling, joint pain, joint swelling and muscle cramps Integumentary/Breast Reports: itching, redness, skin pain, skin tenderness, skin swelling and sores [facility] Medical History (Updated 07/08/24 @ 10:56 by Maryan Mcwilliams MD) Phlebitis and thrombophlebitis of superficial vessels of right lower extremity ?I80.01 - Phlebitis and thrombophlebitis of superficial vessels of right lower extremity (ICD-10) Phlebitis and thrombophlebitis of superficial vessels of left lower extremity ?I80.02 - Phlebitis and thrombophlebitis of superficial vessels of left lower extremity (ICD-10) Pain due to varicose veins of both lower extremities ?I83.813 - Varicose veins of bilateral lower extremities with pain (ICD-10) Raynaud disease ?I73.00 - Raynaud's syndrome without gangrene (ICD-10) Arthritis ?M19.90 - Unspecified osteoarthritis, unspecified site (ICD-10) History of ITP (1989) ?Z86.2 - Personal history of diseases of the blood and blood-forming organs and certain disorders involving the immune mechanism (ICD-10) History of blood transfusion ?Z92.89 - Personal history of other medical treatment (ICD-10) Thyroid cyst ?E04.1 - Nontoxic single thyroid nodule (ICD-10) Phlebitis ?I80.9 - Phlebitis and thrombophlebitis of unspecified site (ICD-10) Varicose vein of leg ?I83.90 - Asymptomatic varicose veins of unspecified lower extremity (ICD-10) Knee pain ?M25.569 - Pain in unspecified knee (ICD-10) Seasonal allergic rhinitis ?J30.2 - Other seasonal allergic rhinitis (ICD-10) Cataracts, bilateral ?H26.9 - Unspecified cataract (ICD-10) Hyperparathyroidism ?E21.3 - Hyperparathyroidism, unspecified (ICD-10) Renal cyst ?N28.1 - Cyst of kidney, acquired (ICD-10) Osteopenia ?M85.80 - Other specified disorders of bone density and structure, unspecified site (ICD-10) Vitamin D deficiency ?E55.9 - Vitamin D deficiency, unspecified (ICD-10) Chronic UTI ?N39.0 - Urinary tract infection, site not specified (ICD-10) Genu varum of right lower extremity ?M21.161 - Varus deformity, not elsewhere classified, right knee (ICD-10) Primary osteoarthritis of right knee ?M17.11 - Unilateral primary osteoarthritis, right knee (ICD-10) Surgical History (Updated 07/23/24 @ 16:07 by Saeid Godinez) S/P sclerotherapy of varicose veins ?Z98.890 - Other specified postprocedural states (ICD-10) ?Z86.79 - Personal history of other diseases of the circulatory system (ICD- 10) S/P sclerotherapy of varicose veins ?Z98.890 - Other specified postprocedural states (ICD-10) ?Z86.79 - Personal history of other diseases of the circulatory system (ICD- 10) Status post laser ablation of incompetent vein ?Z98.890 - Other specified postprocedural states (ICD-10) Status post laser ablation of incompetent vein ?Z98.890 - Other specified postprocedural states (ICD-10) Status post laser ablation of incompetent vein ?Z98.890 - Other specified postprocedural states (ICD-10) History of colonoscopy ?Z98.890 - Other specified postprocedural states (ICD-10) H/O knee surgery ?Z98.890 - Other specified postprocedural states (ICD-10) H/O breast biopsy ?Z98.890 - Other specified postprocedural states (ICD-10) History of cholecystectomy ?Z90.49 - Acquired absence of other specified parts of digestive tract (ICD- 10) H/O oophorectomy H/O parathyroidectomy ?Z98.890 - Other specified postprocedural states (ICD-10) ?Z90.89 - Acquired absence of other organs (ICD-10) History of hysterectomy ?Z90.710 - Acquired absence of both cervix and uterus (ICD-10) H/O tubal ligation ?Z98.51 - Tubal ligation status (ICD-10) H/O splenectomy (1989) ?Z90.81 - Acquired absence of spleen (ICD-10) S/P arthroscopic knee surgery ?Z98.890 - Other specified postprocedural states (ICD-10) Family History (Updated 06/16/24 @ 10:21 by Hilda Reyes RN) Mother Varicose veins of bilateral lower extremities with pain Father Family history of myocardial infarction Other Cancer Family history of DVT Family history of cancer Social History (Updated 05/01/24 @ 08:31 by Francesca Zavala NP) Within the past year, how often did you have a drink containing alcohol: never Score interpretation: A score less than 3 is consistent with normal alcohol consumption. 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 Highest level of school completed/degree received: some college, no degree Little interest or pleasure in doing things: not at all Feeling down, depressed, or hopeless: not at all Meds Home Medications and Allergies Home Medications ?Medication ?Instructions ?Recorded ?Confirmed ?Type biotin 5 mg capsule 5 mg PO DAILY 05/01/24 06/16/24 History cholecalciferol (vitamin D3) 125 125 mcg PO DAILY 05/01/24 06/16/24 History mcg (5,000 unit) capsule cranberry 500 mg capsule 500 mg PO DAILY 05/01/24 06/16/24 History d-mannose 500 mg capsule mg PO 05/01/24 History estradiol 0.01% (0.1 mg/gram) 0.5 appful vaginal .twice a week 05/01/24 06/16/24 History vaginal cream loratadine 10 mg capsule 10 mg PO DAILY 05/01/24 06/16/24 History [id number] 30 mg-folic cap PO 06/16/24 History acid 1 mg-dss 50 mg-dha 260 mg capsule cephalexin 500 mg capsule 500 mg PO BID #10 caps 07/08/24 Rx tamsulosin 0.4 mg capsule (Flomax) 0.4 mg PO DAILY #7 caps 07/08/24 Rx tramadol 50 mg tablet 50 mg PO Q8H PRN pain 2 days #6 07/08/24 07/13/24 Rx tabs Allergies Allergy/AdvReac Type Severity Reaction Status Date / Time codeine AdvReac Nausea Verified 05/01/24 08:26 Exam Narrative Exam Narrative: Blanco Michel MD personally performed the services described in this documentation, as scribed by Anat Belle RVT, RDMS in my presence and it is both accurate and complete. Anat Michel RVT, RDMS, am scribing for, and in the presence of, Dr. Blanco Sullivan and in the presence of the patient. 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 Assessment and Plan Assessment and Plan (1) Phlebitis and thrombophlebitis of superficial vessels of left lower extremity: Plan Patient in today for follow up ultrasound of lower extremity following treatment of Varithena/microfoam completed on 07/22/24. IBlanco MD personally performed the services described in this documentation, as scribed by Anat Belle RVT, RDMS in my presence and it is both accurate and complete. Anat Michel RVT, RDMS, am scribing for, and in the presence of, Dr. Blanco Sullivan and in the presence of the patient.
--- NOTE | 2024-07-28 11:23 | W.VEIN ---
Discharge Plan Discharge Disposition: Home, Self-Care Outpatient Diagnostics: VC INJ Foam Sclerosant WUGinger [employer]CE [employer]IC (Routine) Timeframe: 2 Weeks Facility: [facility] - Location: [facility] Ordered By: Blanco Sullivan Follow Up Appointments: 08/04/24 Plan of Treatment: Varithena/microfoam chemical ablation right leg. Print Language: Iranian Discharge Date/Time: 07/28/24 11:33
== END 2024-07-28 11:33 | disposition home or self-care (01) ==
PROVIDERS: PCP Family Medicine; Visit Provider Radiology Diagnostic Radiology
DX: I80.02 Phlebitis and thrombophlebitis of superficial vessels of left lower extremity (principal)
CPT/HCPCS: 93971; G0463

== ENCOUNTER 2024-08-04 12:52 | Outpatient (OUT) | payer MEDICARE, OTHER, SELFPAY ==
--- NOTE | 2024-08-03 08:59 | V.VEINS.HP ---
Vital Signs 08/04/24 13:05 BP 120/62 BP Location Right Brachial BP Position Sitting BP Cuff Size Adult BP Source Manual Cuff Respiration 18 Pulse 79 Pulse Source Monitor Pulse Oximetry (%) 96 Oxygen Delivery Method Room Air Comment The patient's blood pressure is elevated. Varicose Veins Patient in today for microfoam chemical ablation of right leg Blanco Michel MD personally performed the services described in this documentation, as scribed by Saeid Godinez RN in my presence and it is both accurate and complete. Saeid Michel RN, am scribing for, and in the presence of, Dr. Blanco Sullivan and in the presence of the patient. thigh: bilateral, knee: bilateral, calf: bilateral, ankle: bilateral and anderson: bilateral aching, sharp and tender 3 8 weeks Worsened in recent months: Yes standing analgesics, elevating extremities and compression stockings Reports erythema, bruising, heaviness, limb pain, edema and leg edema History of lower extremity trauma: No Superficial thrombophlebitis: Yes Family history of varicose veins: yes Has patient had previous lower extremity venous surgery: No Patient has previously received the following treatment(s) for lower extremity varicose veins: Reports none Does patient have a history of : yes Does patient intend to have future pregnancies: no Has patient had lower extremity venous scan with relux testing: Yes Support hose used: Yes Problems walking or doing physical activity: Yes How does it affect you: Unable to stand for long periods of time Do you walk much: Yes Do you stand much: Yes Review of Systems ROS Narrative Blanco Michel MD personally performed the services described in this documentation, as scribed by Saeid Godinez RN in my presence and it is both accurate and complete. Saeid Michel RN, am scribing for, and in the presence of, Dr. Blanco Sullivan and in the presence of the patient. Status of ROS 10 or more systems reviewed and unremarkable except as noted in history and below Cardiovascular Reports: edema and swelling of feet/ankles Musculoskeletal Reports: extremity pain, extremity swelling, joint pain, joint swelling and muscle cramps Integumentary/Breast Reports: itching, redness, skin pain, skin tenderness, skin swelling and sores [facility] History (Updated 07/08/24 @ 10:56 by Maryan Mcwilliams MD) Phlebitis and thrombophlebitis of superficial vessels of right lower extremity ?I80.01 - Phlebitis and thrombophlebitis of superficial vessels of right lower extremity (ICD-10) Phlebitis and thrombophlebitis of superficial vessels of left lower extremity ?I80.02 - Phlebitis and thrombophlebitis of superficial vessels of left lower extremity (ICD-10) Pain due to varicose veins of both lower extremities ?I83.813 - Varicose veins of bilateral lower extremities with pain (ICD-10) Raynaud disease ?I73.00 - Raynaud's syndrome without gangrene (ICD-10) Arthritis ?M19.90 - Unspecified osteoarthritis, unspecified site (ICD-10) History of ITP (1989) ?Z86.2 - Personal history of diseases of the blood and blood-forming organs and certain disorders involving the immune mechanism (ICD-10) History of blood transfusion ?Z92.89 - Personal history of other medical treatment (ICD-10) Thyroid cyst ?E04.1 - Nontoxic single thyroid nodule (ICD-10) Phlebitis ?I80.9 - Phlebitis and thrombophlebitis of unspecified site (ICD-10) Varicose vein of leg ?I83.90 - Asymptomatic varicose veins of unspecified lower extremity (ICD-10) Knee pain ?M25.569 - Pain in unspecified knee (ICD-10) Seasonal allergic rhinitis ?J30.2 - Other seasonal allergic rhinitis (ICD-10) Cataracts, bilateral ?H26.9 - Unspecified cataract (ICD-10) Hyperparathyroidism ?E21.3 - Hyperparathyroidism, unspecified (ICD-10) Renal cyst ?N28.1 - Cyst of kidney, acquired (ICD-10) Osteopenia ?M85.80 - Other specified disorders of bone density and structure, unspecified site (ICD-10) Vitamin D deficiency ?E55.9 - Vitamin D deficiency, unspecified (ICD-10) Chronic UTI ?N39.0 - Urinary tract infection, site not specified (ICD-10) Genu varum of right lower extremity ?M21.161 - Varus deformity, not elsewhere classified, right knee (ICD-10) Primary osteoarthritis of right knee ?M17.11 - Unilateral primary osteoarthritis, right knee (ICD-10) Surgical History (Updated 08/04/24 @ 15:16 by Saeid Godinez) S/P sclerotherapy of varicose veins ?Z98.890 - Other specified postprocedural states (ICD-10) ?Z86.79 - Personal history of other diseases of the circulatory system (ICD-10) S/P sclerotherapy of varicose veins ?Z98.890 - Other specified postprocedural states (ICD-10) ?Z86.79 - Personal history of other diseases of the circulatory system (ICD-10) S/P sclerotherapy of varicose veins ?Z98.890 - Other specified postprocedural states (ICD-10) ?Z86.79 - Personal history of other diseases of the circulatory system (ICD-10) Status post laser ablation of incompetent vein ?Z98.890 - Other specified postprocedural states (ICD-10) Status post laser ablation of incompetent vein ?Z98.890 - Other specified postprocedural states (ICD-10) Status post laser ablation of incompetent vein ?Z98.890 - Other specified postprocedural states (ICD-10) History of colonoscopy ?Z98.890 - Other specified postprocedural states (ICD-10) H/O knee surgery ?Z98.890 - Other specified postprocedural states (ICD-10) H/O breast biopsy ?Z98.890 - Other specified postprocedural states (ICD-10) History of cholecystectomy ?Z90.49 - Acquired absence of other specified parts of digestive tract (ICD-10) H/O oophorectomy H/O parathyroidectomy ?Z98.890 - Other specified postprocedural states (ICD-10) ?Z90.89 - Acquired absence of other organs (ICD-10) History of hysterectomy ?Z90.710 - Acquired absence of both cervix and uterus (ICD-10) H/O tubal ligation ?Z98.51 - Tubal ligation status (ICD-10) H/O splenectomy (1989) ?Z90.81 - Acquired absence of spleen (ICD-10) S/P arthroscopic knee surgery ?Z98.890 - Other specified postprocedural states (ICD-10) Family History (Updated 06/16/24 @ 10:21 by Hilda Reyes RN) Mother Varicose veins of bilateral lower extremities with pain Father Family history of myocardial infarction Other Cancer Family history of DVT Family history of cancer Social History (Updated 05/01/24 @ 08:31 by Francesca Zavala NP) Within the past year, how often did you have a drink containing alcohol: never Score interpretation: A score less than 3 is consistent with normal alcohol consumption. 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 Highest level of school completed/degree received: some college, no degree Little interest or pleasure in doing things: not at all Feeling down, depressed, or hopeless: not at all Meds Home Medications and Allergies Home Medications ?Medication ?Instructions ?Recorded ?Confirmed ?Type biotin 5 mg capsule 5 mg PO DAILY 05/01/24 06/16/24 History cholecalciferol (vitamin D3) 125 125 mcg PO DAILY 05/01/24 06/16/24 History mcg (5,000 unit) capsule cranberry 500 mg capsule 500 mg PO DAILY 05/01/24 06/16/24 History d-mannose 500 mg capsule mg PO 05/01/24 History estradiol 0.01% (0.1 mg/gram) 0.5 appful vaginal .twice a week 05/01/24 06/16/24 History vaginal cream loratadine 10 mg capsule 10 mg PO DAILY 05/01/24 06/16/24 History [id number] 30 mg-folic cap PO 06/16/24 History acid 1 mg-dss 50 mg-dha 260 mg capsule cephalexin 500 mg capsule 500 mg PO BID #10 caps 07/08/24 Rx tamsulosin 0.4 mg capsule (Flomax) 0.4 mg PO DAILY #7 caps 07/08/24 Rx tramadol 50 mg tablet 50 mg PO Q8H PRN pain 2 days #6 07/08/24 07/13/24 Rx tabs Allergies Allergy/AdvReac Type Severity Reaction Status Date / Time codeine AdvReac Nausea Verified 05/01/24 08:26 Exam Narrative Exam Narrative: IBlanco MD personally performed the services described in this documentation, as scribed by Saeid Godinez RN in my presence and it is both accurate and complete. ISaeid RN, am scribing for, and in the presence of, Dr. Blanco Sullivan and in the presence of the patient. Constitutional Documenting provider has reviewed patient's vital signs: yes Common normals: oriented x3 Nutritional appearance: overweight Lymph Lymphatic: no lymphedema noted Cardio Peripheral pulses: posterior tibial pulses present and dorsalis pedis pulses present Extremity General: calf tenderness, edema and other findings Right lower extremity: lower leg Right lower leg: inspection and palpation Left lower extremity: lower leg Left lower leg: inspection and palpation Neuro Common normals: oriented x3 Assessment and Plan Assessment and Plan (1) Pain due to varicose veins of both lower extremities: Plan f/u evaluation with physician along with right leg limited u/s Blanco Michel MD personally performed the services described in this documentation, as scribed by Saeid Godinez RN in my presence and it is both accurate and complete. ISaeid RN, am scribing for, and in the presence of, Dr. Blanco Sullivan and in the presence of the patient. Procedures Procedure Instructions Procedures Right leg microfoam chemical ablation/Varithena: Risks and benefits of the procedure were discussed at length and informed written consent was obtained.? Time-out procedure was performed and the correct patient and procedure were confirmed.? Staff present during time-out: Saeid Godinez RN and Blanco Sullivan MD.? Patient prepped and procedure performed in usual sterile fashion.? Patient was placed in Trendelenburg prior to Polidocanol/Varithena injections. Sclerosing Agent:?? 15cc 1% Polidocanol/Varithena Site Injected: Right lecc varithena administerd in to a 4mm varicose vein right proximal lateral lower leg 7cc varithena administered in to a 6mm varicose vein right mid anterior upper leg Number of Injections:? 2 The patient tolerated the procedure well without complication.? Hemostasis was obtained and thigh-high compression stocking was applied with foam pads.? Instructed patient to wear stocking for at least 96 hours and sleep with it and only remove for showering.? The patient was instructed to? wear stocking for 2 weeks.? Patient verbalizes understanding and states they will comply.? Patient was given post-procedure instructions. Patient was discharged in good condition.? Scheduled to undergo limited venous ultrasound and? exam on 08/11/2024 Blanco Michel MD personally performed the services described in this documentation, as scribed by Saeid Godinez RN in my presence and it is both accurate and complete. I, Saeid Godinez RN, am scribing for, and in the presence of, Dr. Blanco Sullivan and in the presence of the patient.
--- NOTE | 2024-08-03 09:13 | W.VEIN ---
Discharge Plan Discharge Disposition: Home, Self-Care Outpatient Diagnostics: [facility] Facility EST LMTD (Routine) Timeframe: 2 Weeks Facility: [facility] - Location: [facility] Ordered By: Quentin Hernandez VC EXT Venous RT LMTD (Routine) Timeframe: 2 Weeks Facility: [facility] - Location: [facility] Center Ordered By: Quentin Hernandez Follow Up Appointments: 08/10/2024 Plan of Treatment: f/u examination with physician along with right leg limited u/s Print Language: Kazakh Discharge Date/Time: 08/04/24 15:14
--- NOTE | 2024-08-04 12:54 | VEIN_ITS ---
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 Pre-operative Diagnosis: CEAP class C4a venous insufficiency with pain, tenderness, edema and incompetent branch saphenous vein(s), chronic venous insufficiency right leg secondary to venous incompetence Post-operative Diagnosis: CEAP class C4a venous insufficiency with pain, tenderness, edema and incompetent branch saphenous vein(s), chronic venous insufficiency right leg secondary to venous incompetence Procedure Performed: 1. Ultrasound-guided microfoam chemical ablation with Varithenaregistered 2. Intraoperative ultrasound guidance Physician: Dario Bess M.D. Anesthesia: None Indications for Procedure: 79 year old female. Symptoms including extremity pain, swelling, dilated bulging veins for many years despite conservative medical therapy including medical compression stockings, exercise and analgesics. Prior procedures include endovenous laser ablation and microfoam chemical ablation. Multiple incompetent varicosities of the right leg. Duplex scan showed reflux and enlarged diameters up to 6 mm. The patient underwent informed consent including management options where the complications of infection, bleeding, pain, and skin injury were discussed. Particular attention was spent discussing thrombus extension and deep vein thrombosis as well as the possibility of pulmonary embolus and treatment with oral or injectable blood thinners. Procedure: The patient walked to the procedure room. All applicable staff donned appropriate apparel. A procedure timeout was performed to confirm correct patient, correct extremity, correct procedure, and correct room set-up including presence of all applicable supplies, devices, and drugs. A duplex ultrasound, performed by myself confirmed the location and incompetence of branch saphenous varicosities and their course was marked on the skin together with the dilated tributaries. The extent of treatment of the vein and the associated varicosities was determined through ultrasound mapping. The skin was prepped and then punctured with a butterfly needle and advanced under ultrasound guidance. The Varithenaregistered canister was activated and the canister was primed and purged as required in the instructions for use. Varithenaregistered was drawn into a sterile syringe. Varithenaregistered was slowly administered at 0.5-1.0 cc/second with close observation by ultrasound of its course in the vessels. Total volume utilized was: 15 mL (8 mL into a 4 mm varicosity proximal lateral lower leg; 7 mL into a 6 mm varicosity mid anterior upper leg). Following administration of Varithenaregistered the leg was elevated and the patient was asked to repeatedly dorsiflex the ankle to limit flow of Varithenaregistered into perforating veins. Once appropriate spasm had been confirmed in the treated veins, the vascular catheter was removed from the leg and light pressure was applied over the puncture site for hemostasis. The common femoral and deep superficial veins were then evaluated for flow and compressibility prior to dressing placement. The lower extremity was kept elevated at 45 degrees above the horizontal and cording material was applied over the saphenous segments and tributaries to allow for eccentric compression over the target vessels including the targeted saphenous vein(s). A multilayer dressing was applied consisting of foam pads, coban and thigh-high 20-30 mm Hg compression elastic support hose were placed on the patient. The leg was lowered only after compression had been applied and the patient was immediately ambulatory. The patient ambulated 10 minutes under supervision and was without apparent concerns at time of release. Post-care instructions include advising patient to keep post-treatment bandages in place and dry for 48 hours, avoid extended periods of inactivity, avoid heavy exercise for one week, wear compression stockings on the treated leg continuously for two weeks, to walk daily for 10 minutes over the next month. The patient was instructed to take an anti-inflammatory medicine as needed and to follow up for color duplex scan of the Saphenous veins, the treated branch saphenous varicosities, the adjacent deep veins, and additional treatment within 7 days. PERSONNEL: Saeid Godinez RN Electronically authenticated by: DARIO BESS Date: 08/04/2024 13:51
[2024-08-04 13:05] VITALS: BP 120/62; PULSE 79; O2SAT 96
== END 2024-08-04 15:14 | disposition home or self-care (01) ==
LOC: VC 12:53
PROVIDERS: PCP Family Medicine; Visit Provider Radiology Diagnostic Radiology
DX: I83.813 Varicose veins of bilateral lower extremities with pain (principal)
CPT/HCPCS: 36466

== ENCOUNTER 2024-08-10 11:13 | Outpatient (OUT) | payer MEDICARE, OTHER, SELFPAY ==
[2024-08-10 10:04] VITALS: BMI 36.3
--- NOTE | 2024-08-10 10:04 | VEINCLINIC_ITS ---
Vital Signs 08/10/24 10:04 Height 5 ft 6 in Weight 102 kg BMI 36.3 Varicose Veins Patient in today for follow up ultrasound of right lower extremity following treatment of Varithena/microfoam completed on 08/04/24. Blanco Michel MD personally performed the services described in this documentation, as scribed by Nichole Wesley RDMS in my presence and it is both accurate and complete. Nichole Michel RDMS, am scribing for, and in the presence of, Dr. Blanco Sullivan and in the presence of the patient. thigh: bilateral, knee: bilateral, calf: bilateral, ankle: bilateral and anderson: bilateral aching, sharp and tender 3 8 weeks Worsened in recent months: Yes standing analgesics, elevating extremities and compression stockings Reports erythema, bruising, heaviness, limb pain, edema and leg edema History of lower extremity trauma: No Superficial thrombophlebitis: Yes Family history of varicose veins: yes Has patient had previous lower extremity venous surgery: No Patient has previously received the following treatment(s) for lower extremity varicose veins: Reports none Does patient have a history of : yes Does patient intend to have future pregnancies: no Has patient had lower extremity venous scan with relux testing: Yes Support hose used: Yes Problems walking or doing physical activity: Yes How does it affect you: Unable to stand for long periods of time Do you walk much: Yes Do you stand much: Yes Review of Systems ROS Narrative Blanco Michel MD personally performed the services described in this documentation, as scribed by Nichole Wesley RDMS in my presence and it is both accurate and complete. Nichole Michel RDMS, am scribing for, and in the presence of, Dr. Blanco Sullivan and in the presence of the patient. Status of ROS 10 or more systems reviewed and unremark able except as noted in history and below Cardiovascular Reports: edema and swelling of feet/ankles Musculoskeletal Reports: extremity pain, extremity swelling, joint pain, joint swelling and muscle cramps Integumentary/Breast Reports: itching, redness, skin pain, skin tenderness, skin swelling and sores [facility] (Updated 07/08/24 @ 10:56 by Maryan Mcwilliams MD) Phlebitis and thrombophlebitis of superficial vessels of right lower extremity ?I80.01 - Phlebitis and thrombophlebitis of superficial vessels of right lower extremity (ICD-10) Phlebitis and thrombophlebitis of superficial vessels of left lower extremity ?I80.02 - Phlebitis and thrombophlebitis of superficial vessels of left lower extremity (ICD-10) Pain due to varicose veins of both lower extremities ?I83.813 - Varicose veins of bilateral lower extremities with pain (ICD-10) Raynaud disease ?I73.00 - Raynaud's syndrome without gangrene (ICD-10) Arthritis ?M19.90 - Unspecified osteoarthritis, unspecified site (ICD-10) History of ITP (1989) ?Z86.2 - Personal history of diseases of the blood and blood-forming organs and certain disorders involving the immune mechanism (ICD-10) History of blood transfusion ?Z92.89 - Personal history of other medical treatment (ICD-10) Thyroid cyst ?E04.1 - Nontoxic single thyroid nodule (ICD-10) Phlebitis ?I80.9 - Phlebitis and thrombophlebitis of unspecified site (ICD-10) Varicose vein of leg ?I83.90 - Asymptomatic varicose veins of unspecified lower extremity (ICD-10) Knee pain ?M25.569 - Pain in unspecified knee (ICD-10) Seasonal allergic rhinitis ?J30.2 - Other seasonal allergic rhinitis (ICD-10) Cataracts, bilateral ?H26.9 - Unspecified cataract (ICD-10) Hyperparathyroidism ?E21.3 - Hyperparathyroidism, unspecified (ICD-10) Renal cyst ?N28.1 - Cyst of kidney, acquired (ICD-10) Osteopenia ?M85.80 - Other specified disorders of bone density and structure, unspecified site (ICD-10) Vitamin D deficiency ?E55.9 - Vitamin D deficiency, unspecified (ICD-10) Chronic UTI ?N39.0 - Urinary tract infection, site not specified (ICD-10) Genu varum of right lower extremity ?M21.161 - Varus deformity, not elsewhere classified, right knee (ICD-10) Primary osteoarthritis of right knee ?M17.11 - Unilateral primary osteoarthritis, right knee (ICD-10) Surgical History (Updated 08/04/24 @ 15:16 by Saeid Godinez) S/P sclerotherapy of varicose veins ?Z98.890 - Other specified postprocedural states (ICD-10) ?Z86.79 - Personal history of other diseases of the circulatory system (ICD- 10) S/P sclerotherapy of varicose veins ?Z98.890 - Other specified postprocedural states (ICD-10) ?Z86.79 - Personal history of other diseases of the circulatory system (ICD- 10) S/P sclerotherapy of varicose veins ?Z98.890 - Other specified postprocedural states (ICD-10) ?Z86.79 - Personal history of other diseases of the circulatory system (ICD- 10) Status post laser ablation of incompetent vein ?Z98.890 - Other specified postprocedural states (ICD-10) Status post laser ablation of incompetent vein ?Z98.890 - Other specified postprocedural states (ICD-10) Status post laser ablation of incompetent vein ?Z98.890 - Other specified postprocedural states (ICD-10) History of colonoscopy ?Z98.890 - Other specified postprocedural states (ICD-10) H/O knee surgery ?Z98.890 - Other specified postprocedural states (ICD-10) H/O breast biopsy ?Z98.890 - Other specified postprocedural states (ICD-10) History of cholecystectomy ?Z90.49 - Acquired absence of other specified parts of digestive tract (ICD- 10) H/O oophorectomy H/O parathyroidectomy ?Z98.890 - Other specified postprocedural states (ICD-10) ?Z90.89 - Acquired absence of other organs (ICD-10) History of hysterectomy ?Z90.710 - Acquired absence of both cervix and uterus (ICD-10) H/O tubal ligation ?Z98.51 - Tubal ligation status (ICD-10) H/O splenectomy (1989) ?Z90.81 - Acquired absence of spleen (ICD-10) S/P arthroscopic knee surgery ?Z98.890 - Other specified postprocedural states (ICD-10) Family History (Updated 06/16/24 @ 10:21 by Hilda Reyes RN) Mother Varicose veins of bilateral lower extremities with pain Father Family history of myocardial infarction Other Cancer Family history of DVT Family history of cancer Social History (Updated 05/01/24 @ 08:31 by Francesca Zavala NP) Within the past year, how often did you have a drink containing alcohol: never Score interpretation: A score less than 3 is consistent with normal alcohol consumption. 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 Highest level of school completed/degree received: some college, no degree Little interest or pleasure in doing things: not at all Feeling down, depressed, or hopeless: not at all Meds Home Medications and Allergies Home Medications ?Medication ?Instructions ?Recorded ?Confirmed ?Type biotin 5 mg capsule 5 mg PO DAILY 05/01/24 06/16/24 History cholecalciferol (vitamin D3) 125 125 mcg PO DAILY 05/01/24 06/16/24 History mcg (5,000 unit) capsule cranberry 500 mg capsule 500 mg PO DAILY 05/01/24 06/16/24 History d-mannose 500 mg capsule mg PO 05/01/24 History estradiol 0.01% (0.1 mg/gram) 0.5 appful vaginal .twice a week 05/01/24 06/16/24 History vaginal cream loratadine 10 mg capsule 10 mg PO DAILY 05/01/24 06/16/24 History [id number] 30 mg-folic cap PO 06/16/24 History acid 1 mg-dss 50 mg-dha 260 mg capsule cephalexin 500 mg capsule 500 mg PO BID #10 caps 07/08/24 Rx tamsulosin 0.4 mg capsule (Flomax) 0.4 mg PO DAILY #7 caps 07/08/24 Rx tramadol 50 mg tablet 50 mg PO Q8H PRN pain 2 days #6 07/08/24 07/13/24 Rx tabs Allergies Allergy/AdvReac Type Severity Reaction Status Date / Time codeine AdvReac Nausea Verified 05/01/24 08:26 Exam Narrative Exam Narrative: IBlanco MD personally performed the services described in this documentation, as scribed by Nichole Wesley RDMS in my presence and it is both accurate and complete. INichole RDMS, am scribing for, and in the presence of, Dr. Blanco Sullivan and in the presence of the patient. Constitutional Documenting provider has reviewed patient's vital signs: yes Common normals: oriented x3 Nutritional appearance: overweight Lymph Lymphatic: no lymphedema noted Cardio Peripheral pulses: posterior tibial pulses present and dorsalis pedis pulses present Extremity General: calf tenderness, edema and other findings Right lower extremity: lower leg Right lower leg: inspection and palpation Left lower extremity: lower leg Left lower leg: inspection and palpation Neuro Common normals: oriented x3 Results Imaging Venous US: Radiologist's impression: Chemically induced thrombus in multiple varicose veins in right leg. Blanco Michel MD personally performed the services described in this documentation, as scribed by Nichole Wesley RDMS in my presence and it is both accurate and complete. Nichole Michel RDMS, am scribing for, and in the presence of, Dr. Blanco Sullivan and in the presence of the patient. Assessment and Plan Assessment and Plan (1) Phlebitis and thrombophlebitis of superficial vessels of right lower extremity: Plan Plan is for patient to return for Varithena/microfoam of left leg on 08/13/24. Blanco Michel MD personally performed the services described in this documentation, as scribed by Nichole Wesley RDMS in my presence and it is both accurate and complete. Nichole Michel RDMS, am scribing for, and in the presence of, Dr. Blanco Sullivan and in the presence of the patient.
--- NOTE | 2024-08-10 11:15 | VEIN_ITS ---
Patient Name: BHAVESH MONTEIRO MR#: [id number] : 1945 Exam Date: 08/10/2024 Ordering Doctor: DR CARLO RICHARDSON M.D. RADIOLOGY REPORT PROCEDURE: [facility] - OFFICE VISIT FOLLOW UP COMPARISON: [facility], 07/28/2024. PROGRESS NOTES: The patient reports improvement in leg symptoms. There has been interval reduction in varicosities. The patient has followed our recommendations to walk 20-30 minutes once or twice per day since the procedure. Physical exam demonstrates decrease in varicosities of the leg. Persistent varicosities are identified along the left leg. Numerous spider veins bilaterally. Review of the ultrasound performed the same day demonstrates occlusive thrombus extending throughout the treated vein(s), see separate report, consistent with a successful ablation. No thrombus extending into or beyond the saphenofemoral junction. The patient expressed a desire to proceed with treatment of remaining incompetent varicosities. The patient was informed that treatment was a process and would require several procedures/sessions. [facility]: 1. Successful ablation of the treated right leg branch saphenous vein(s). 2. Persistent varicose veins and lower extremity symptoms. PLAN: 1. Microfoam chemical ablation of left leg incompetent branch saphenous varicosities. Nurse notes, history and physical were reviewed and confirmed, see attached forms. The nurse was present throughout the physical exam and consultation Dictated by: Blanco Sullivan M.D. on 08/10/2024 at 12:12 Approved by: Blanco Sullivan M.D. on 08/10/2024 at 12:13
--- NOTE | 2024-08-10 11:15 | VEIN_ITS ---
Patient Name: BHAVESH MONTEIRO MR#: [id number] : 1945 Exam Date: 08/10/2024 Ordering Doctor: DR CARLO RICHARDSON M.D. RADIOLOGY REPORT PROCEDURE: [facility] EXT VENOUS RT LMTD COMPARISON: [facility] EXT VENOUS RT LMTD, 07/20/2024. INDICATIONS: I80.01 - Phlebitis and thrombophlebitis of superficial veins right leg TECHNIQUE: Lower extremity rucker scale and Duplex Doppler evaluation of the deep venous system from the inguinal ligament through the calf veins. FINDINGS: REGION: Right lower extremity. THROMBI: Negative for DVT. Chemically induced thrombus in multiple varicose veins in right leg. COMPRESSIBILITY: Non-compressible segments corresponding to thrombus FLOW: Areas of no flow corresponding to thrombus OTHER: Patent varicose vein lateral/anterior knee measures 3.8 mm. CONCLUSION: 1. Successful post ablation occlusion of right leg treated branch saphenous varicosities. Dictated by: Blanco Sullivan M.D. on 08/10/2024 at 12:12 Approved by: Blanco Sullivan M.D. on 08/10/2024 at 12:12
--- OUTSIDE RECORDS SUMMARY | 2024-08-10 11:17 | XMS_ITS | CCD ---
Author Organization [facility] Care Team Providers Care Coremaker Apprentice Name Role Phone HAFSA KNOWLES Primary Care Physician [phone] SAMUEL, DR ANTWON Sharma Admitting Unavailparadise BAKER, [...] Almonte Attending Unavailable Katie Almonte Attending Unavailable Kaite Almonte Attending Unavailable Katie Almonte Admitting Unavailable Johny Perdomo DO Attending UnavailJohny Wallace DO Attending UnavailHafsa Hernandez MD Primary Care Hafsa Lan MD Primary Care Provider ZAIDA CHILD Attending Unavailable HAFSA KNOWLES Referring Unavailable HAFSA KNOWLES Primary Care Unavailable Maryan Mcwilliams Attending Unavailable Maryan Mcwilliams Admitting Unavailable Maryan Mcwilliams MD Attending Provider [phone] Allergies Allergy Classification Reported Allergen(s) Allergy Type Date of Onset Reaction(s) Facility (17 sources) Codeine; Translations: [codeine] Drug Allergy 12-26-19 16 Nausea [facility] (1 source) Codeine Drug Allergy [facility] Repository (2 sources) Acetaminophen / HYDROcodone Drug Allergy Unknown [employer] [facility] [employer] Other (2 sources) Codeine Drug Allergy Unknown [employer] Other (2 sources) patient allergy list reviewed by nurse or physicia Propensity to adverse reactions 04-29-20 15 Comment:Done [employer] Other (2 sources) Allergies Reconciled Propensity to adverse reactions Unknown [employer] [facility] [employer] Other (6 sources) Acetaminophen; Translations: [acetaminophen] Drug Allergy 01-24-20 24 [facility] (6 sources) HYDROcodone; Translations: [hydrocodone] Drug Allergy 01-24-20 24 [facility] (1 source) Codeine Drug Allergy 05-19-20 [facility] Repository Medications Current Medications Medication Drug [...] mouth. Active take 1 capsule by mo [facility] once daily Biotin 5000 5 MG 1 [...] 2 times per week after for maintenance., [employer] #72, 168, cm, 01/15/24 10:54:00 EDT, Height/Length Dosing, 96, kg, 01/15/24 10:54:00 EDT, Weight Dosing Start Date: 01/15/24 Status: Ordered Start: 08-22-2022 Estrace 0.1 mg /g Cream See Instructions, 42.5 gm, Refill(s) 6, Apply pea-sized amound around the opening of the urethra 3 times per week for 1 month then 2 times per week after for maintenance., [employer] [facility], 168, cm, 08/22/22 11:52:00 EST, Height/Length [...] given by office. Patient was given a [employer] coupon voucher to use, this is not to be ran through patients insurance. 24 tablet 07/18/2022 Active Vitamin D-3 1000 UNIT (2 sources) take 1 capsule by [facility] once daily Vitamin D-3 1000 [...] 2:53pm Start: 12-05-2021 take 1 capsule by [facility] every twelve hours Keflex 500 mg Cap 500 mg = 1 cap(s), Oral, q12hr, # 6 cap(s), Refills(s) 0, Pharmacy: [facility], 168, cm, 12/05/21 10:16:00 EDT, Height/Length [...] 10:02am Start: 09-05-2020 take 1 capsule by [facility] once daily Omeprazole 40 MG [...] negative bacilli - 2 Days PERFORMED BY: [facility] [place], [place] [id number] PATHOLOGIST POST DOC FELLOWSHIP ZAIDA Sumner [facility] Comment on above: Performed By: #### C UU #### [facility] [address] [id number] [facility] Urine cultureOrdered By: Yesenia Mcwilliams on 07-08-2024 Bacteria identified Cx Nom (U) Urine culture [facility] Activated partial thrombopla stin time (aPTT) in platelet poor plasma by coagulation aon 05-01-2024 aPTT Coag (PPP) [Time] 30.5 s 22.3-36.2 [facility] aP[facility] Coag (PPP) [Time] Activated partial thromboplastin time (aPTT) in platelet poor plasma by coagulation a 22.3-36.2 [facility] Basophils Auto (Bld) [#/Vol] on 05-01-2024 Basophils (Bld) [#/Vol] 0.0 10 3/uL 0.0-0.1 [facility] Basophils (Bld) [#/Vol] Automated basoph il count 0.0-0.1 [facility] Basophils/100 WBC Auto (Bld) on 05-01-2024 Basophils/100 WBC (Bld) 0.7 % 0.2-2.0 F [facility] Basophils/100 WBC (Bld) Automated basophil % 0. 2-2.0 [facility] Eosinophils/100 WBC Auto (Bl d)on 05-01-2024 Eosinophils/100 WBC (Bld) 3.8 % 0.9-7.0 [facility] Eosinophils/100 WBC (Bld) Automated eosinophil % 0.9-7.0 [facility] Erythrocyte distribution wid th Auto (RBC) [Ratio]on 05-01-2024 Erythrocyte distribution width (RBC) [Ratio] 14.4 % 11.0-15.0 [facility] Erythrocyte distribution width (RBC) [Ratio] Erythrocyte distribution width [Ratio] by Automated count 11.0-15.0 [facility] Estimated glomerular filtrat ion rate (GFR) non- Americanon 05-01-2024 GFR/1.73 sq M.predicted among non-blacks MDRD (S/P/Bld) [Vol rate/Area] 51 mL/min/{1.73_m2} Low >=60 mL/min/1.73m 2 [facility] GFR/1.73 sq M.predicted among non-blacks MDRD (S/P/Bld) [Vol rate/Area] Estimated glomerular filtration rate (GFR) non- Low >=60 mL/min/1.73m 2 [facility] Globulin Calc (S) [Mass/Vol] on 05-01-2024 Globulin (S) [Mass/Vol] 4.3 g/dL [facility] Globulin (S) [Mass/Vol] Serum globulin measurement by calculation (mass/volume) [facility] Hematocrit Auto (Bld) [Volum e fraction]on 05-01-2024 Hematocrit (Bld) [Volume fraction] 39.1 % 36.0-48.0 [facility] Hematocrit (Bld) [Volume fraction] Hematocrit [Volume Fraction] of Blood by Automated count 36.0-48.0 [facility] Hemoglobin [Mass/volume] in Bloodon 05-01-2024 Hemoglobin (Bld) [Mass/Vol] 13.1 g/dL 12.0-16.0 [facility] Hemoglobin (Bld) [Mass/Vol] Hemoglobin [Mass/volume] in Blood 12.0-16.0 [facility] INR in Platelet poor plasma by Coagulation assayon 05-01-2024 INR Coag (PPP) [Relative time] 1.07 {INR} [facility] Comment on above: DESIRED INR:2.0-3.0 CONDITIONS NOT LISTED BELOW2.5-3.5 FOR PROSTHETIC HEART VALVE REPLACEMENT2.5-3.5 RECURRENT THROMBOSIS INR Coag (PPP) [Relative time] INR in Platelet poor plasma by Coagulation assay [facility] Comment on above: DESIRED INR:2.0-3.0 CONDITIONS NOT LISTED BELOW2.5-3.5 FOR PROSTHETIC HEART VALVE REPLACEMENT2.5-3.5 RECURRENT THROMBOSIS Laboratory - Chemistry and C hemistry - challengeon 05-01-2024 Bilirubin Ql (U) Negative NEGATIVE [facility] Glucose (U) [Mass/Vol] Negative NEGATIVE Fi [facility] Ketones Ql (U) Negative NEGATIVE [facility] pH (U) 6.0 [pH] 5.0-9.0 [facility] Specific gravity (U) [Rel density] 1.020 1.005-1.025 [facility] Urobilinogen Qn (U) 0.2 {Diana'U}/dL 0.2-1.0 [facility] Albumin [Mass/Vol] 2.9 g/dL Low 3.4-5.0 [facility] ALP [Catalytic activity/Vol] 196 U/L High 46-116 [facility] ALT [Catalytic activity/Vol] 44 U/L 14-59 [facility] AST [Catalytic activity/Vol] 51 U/L High 15-37 [facility] Bilirubin [Mass/Vol] 0.7 mg/dL 0.2-1.0 [facility] Bilirubin.direct [Mass/Vol] 0.2 mg/dL 0.0-0.2 [facility] Calcium [Mass/Vol] 9.1 mg/dL 8.5-10.1 [facility] Chloride [Moles/Vol] 107 mmol/L 98-107 [facility] CO2 [Moles/Vol] 25.8 mmol/L 21.0-32.0 [facility] Creatinine [Mass/Vol] 1.05 mg/dL High 0.55-1.[address] [facility] GFR/1.73 sq M.predicted MDRD (S/P/Bld) [Vol rate/Area] mL/min/{1.73_m2} >=60 mL/min/1.73m 2 [facility] Glucose [Mass/Vol] 84 mg/dL 74-106 [facility] Potassium [Moles/Vol] 3.7 mmol/L 3.5-5.[address] [facility] Protein [Mass/Vol] 7.2 g/dL 6.4-8.2 [facility] Sodium [Moles/Vol] 143 mmol/L 136-145 [facility] Urea nitrogen [Mass/Vol] 20.0 mg/dL High 7.0-18.0 [facility] Urea nitrogen/Creatinine [Mass ratio] 19.0 mg/mg [facility] Laboratory - Hematology and Cell countson 05-01-2024 Immature granulocytes/100 WBC (Bld) 0.2 % 0.0-0.5 [facility] Laboratory - Specimen inform ationon 05-01-2024 Appearance (U) CLEAR CLEAR [facility] Color (U) YELLOW YELLOW [facility] Laboratory - Urinalysison Leukocyte esterase Test strip Ql (U) Negative NEGATIVE [facility] Nitrite Ql (U) Negative NEGATIVE [facility] Protein Ql (U) Negative NEG/TRACE [facility] Leukocytes [#/volume] correc reji for nucleated erythrocytes in Blood by Automated counon 05-01-2024 WBC corrected for nucl RBC Auto (Bld) [#/Vol] 4.5 10 3/uL 4.0-11.0 [facility] WBC corrected for nucl RBC Auto (Bld) [#/Vol] Leukocytes [#/volume] corrected for nucleated erythrocytes in Blood by Automated coun 4.0-11.0 [facility] Lymphocytes Auto (Bld) [#/Vo l]on 05-01-2024 Lymphocytes (Bld) [#/Vol] 2.0 10 3/uL 1.2-3.8 [facility] Lymphocytes (Bld) [#/Vol] Lymphocytes [#/volume] in Blood by Automated count 1.2-3.8 [facility] Lymphocytes/100 WBC Auto (Bl d)on 05-01-2024 Lymphocytes/100 WBC (Bld) 43.8 % 20.5-60.0 [facility] Lymphocytes/100 WBC (Bld) Lymphocytes/100 leukocytes in Blood by Automated count 20.5-60.0 [facility] MCH Auto (RBC) [Entitic mass ]on 05-01-2024 MCH (RBC) [Entitic mass] 34.5 pg High 26.7-34.0 [facility] MCH (RBC) [Entitic mass] MCH [Entitic mass] by Automated count High 26.7-34.0 [facility] MCHC Auto (RBC) [Mass/Vol]on 05-01-2024 MCHC (RBC) [Mass/Vol] 33.5 g/dL 29.9-35.[address] [facility] MCHC (RBC) [Mass/Vol] MCHC [Mass/volume] by Automated count 29.9-35.2 [facility] MCV Auto (RBC) [Entitic vol] on 05-01-2024 MCV (RBC) [Entitic vol] 102.9 fL High 81.0-99.0 F [facility] MCV (RBC) [Entitic vol] MCV [Entitic vol ume] by Automated count High 81.0-99.0 [facility] Monocytes Auto (Bld) [#/Vol] on 05-01-2024 Monocytes (Bld) [#/Vol] 0.6 10 3/uL 0.3-0.8 [facility] Monocytes (Bld) [#/Vol] Automated blood monocyte count 0.3-0.8 [facility] Monocytes/100 WBC Auto (Bld) on 05-01-2024 Monocytes/100 WBC (Bld) 13.8 % High 1.7-12.0 F [facility] Monocytes/100 WBC (Bld) Automated monocyte % High 1. 7-12.0 [facility] Neutrophils Auto (Bld) [#/Vo l]on 05-01-2024 Neutrophils (Bld) [#/Vol] 1.7 10 3/uL 1.4-6.5 [facility] Neutrophils (Bld) [#/Vol] Neutrophils [#/volume] in Blood by Automated count 1.4-6.5 [facility] Neutrophils/100 WBC Auto (Bl d)on 05-01-2024 Neutrophils/100 WBC (Bld) 37.7 % Low 43.0-75.0 [facility] Neutrophils/100 WBC (Bld) Automated neutrophil % Low 43.0-75.0 [facility] No Panel Informationon 05-01 Urine Microscopic Review NO [facility] Urine Occult Blood Negative NEGATIVE [facility] Eosinophils # (Auto) 0.2 10 3/uL 0.0-0.[address] [facility] Immature Granulocyte # (Auto) 0.01 10 3/uL 0.00-0.03 [facility] No Panel InformationOrdered By: Johny Perdomo on 05-01-2024 MRSA Screening Culture [facility] Platelet mean volume Auto (B ld) [Entitic vol]on 05-01-2024 Platelet mean volume (Bld) [Entitic vol] 12.6 fL 9.5-13.5 [facility] Platelet mean volume (Bld) [Entitic vol] Platelet mean volume [Entitic volume] in Blood by Automated count 9.5-13.5 [facility] Platelets Auto (Bld) [#/Vol] on 05-01-2024 Platelets (Bld) [#/Vol] 266 10 3/uL 150-450 [facility] Platelets (Bld) [#/Vol] Platelets [#/vol ume] in Blood by Automated count 150-450 [facility] Prothrombin time (PT)on 04-14 PT Coag (PPP) [Time] 11.3 s 9.0-11.6 [facility] PT Coag (PPP) [Time] Prothrombin time (PT) 9.0- 11.6 [facility] RBC Auto (Bld) [#/Vol]on RBC (Bld) [#/Vol] 3.80 10 6/uL Low 4.20-5.40 [facility] RBC (Bld) [#/Vol] Erythrocytes [#/volume] in Blood by Automated count Low 4.20-5.40 [facility] Serum or plasma albumin/glob ulin mass ratioon 05-01-2024 Albumin/Globulin [Mass ratio] 0.7 {ratio} [facility] Albumin/Globulin [Mass ratio] Serum or plasma albumin/globulin mass ratio [facility] Serum or plasma anion gap de terminationon 05-01-2024 Anion gap [Moles/Vol] 13.9 mmol/L Fi [facility] Anion gap [Moles/Vol] Serum or plasma an ion gap determination [facility] C Urineon 01-19-2024 Bacteria identified Cx [...] test was performed at: [facility], [address] [place] [address], [id number]- , [place], Normal [facility] Comment on above: Performed By: #### [id number] #### [facility] [address] [place] [id number] Ambulatory Visit Summaryon 0 01-15-2024 Ambulatory Visit [...] Arteaga, KEKE, URO When: Where: [address] [place] [phone] Medications What How Much When Instructions Unchanged estradiol topical (Estrace 0.1 mg/ g Cream) See instructions Apply pea-sized amound around the opening of the urethra 3 times per week for 1 month then 2 times per week after for maintenance. Pickup at [facility] Unchanged biotin (biotin 5000 mcg oral capsule) Contact prescribing physician if questions or concerns Unchanged cholecalciferol (Vitamin D3 5000 intl units oral capsule) 1 Capsules By Mouth Every day with food Contact prescribing physician if questions or concerns Unchanged fexofenadine (Mary) By Mouth Contact prescribing physician if questions or concerns Pharmacy Information [facility]: [address] [place] [id number] [phone] Allergies codeine (nausea) Problems Ongoing - Any [...] intended to (more content not included)... Normal [facility] Urology Office/Clinic Noteon 01-15-2024 Urology [...] Information Gage JACOB, Katie Arteaga, URL, URO [address], [place] [phone] Additional Instructions: pt's choice on when to [...] Hyperparathyroidism Osteopeni (more content not included)... Normal [facility] Comment on above: Result Comment: Elec tronically Signed By: Katie Almonte MD\.br\Date and Time Signed: 01/15/24 23:28 EDT\.br\Electronically Co-Signed By: Yuliana Olson\.br\Date and Time Co-Signed: 01/15/24 11:27 EDT [place] 02-21-2023 Screens [id number] Normal [facility] Patient Educationon 02-21-20 Patient Education [...] these instructions at home: Medicines ? Take tial-nmo-yavmgcc and prescription medicines only as told by [...] provider. Document Revised: 02/10/2021 Document Reviewed: 02/10/2021 [employer] Patient Education ? 2022 [employer] Normal [facility] Urology Office/Clinic Noteon 02-20-2023 Urology Office/Clinic Note [...] medical exam (more content not included)... Normal [facility] Comment on above: Result Comment: Elec tronically Signed By: Katie Almonte MD\.br\Date and Time Signed: 02/20/23 12:03 EDT\.br\Electronically Co-Signed By: Sepideh Perez\.br\Date and Time Co-Signed: 02/20/23 11:49 EDT Covid-19 PCR (CVDTB)on 07-15 SARS-CoV-2 (COVID-19) RNA AZUL+probe Ql (Unsp spec) Not detected Normal NOT DETECTED [facility] Comment on above: Result Comment: This test is not yet approved or cleared by the [place] FDA. When there are no FDA-approved or cleared tests available, and other criteria are met, FDA can make tests available under an emergency access mechanism called an Emergency Use Authorization (EUA). The EUA for this test is supported by the Process Control Manager of Health and Human Service's (HHS's) declaration [...] SARS-CoV-2. Performed By: #### C VDTBH #### [facility] [address] [place] [address] Dr. Manjula Arzate CREATININEon 06-13-2022 Creatinine [Mass/Vol] 0.98 mg/dL Normal 0.55-1.02 [facility] Comment on above: Performed By: #### C JESUS #### [facility] [address] [address] [address] Manjula Arzate EGFR-AF VENEZUELAN >60 Normal >=[address] [facility] Comment on above: Performed By: #### C JESUS #### [facility] [address] [place], [place] [address] Dr. Manjula Arzate EGFR-NON AF VENEZUELAN 55 mL/min/1.73m2 Critically low >=60 [facility] Comment on above: Performed By: #### C JESUS #### [facility] [address] ABD/PELV W CONon [...] or mild colitis. Electronically authenticated by: DARIO EBSS Date: 2022-06-13 17:40 Normal [facility] CT ABD/PELVIS WO CONon 11-27 CT [...] by: DARIO BESS Date: 2021-11-27 10:41 Normal [facility] Vital Signs Date Time Vital Sign Value Performing Clinician Facility 07-16-2024 08:56-0500 Body height 165.1 cm Maryan Mcwilliams MD Work Phone: [facility] 07-16-2024 08:56-0500 Body mass index (BMI) [Ratio] 34.4 kg/m2 Maryan Mcwilliams MD Work Phone: [facility] 07-16-2024 08:56-0500 Body weight 93.89 kg Maryan Mcwilliams MD Work Phone: [facility] 07-16-2024 08:56-0500 Diastolic blood pressure 66 mm[Hg] Maryan Mcwilliams MD Work Phone: [facility] 07-16-2024 08:56-0500 Heart rate 83 /min Maryan Mcwilliams MD Work Phone: [facility] 07-16-2024 08:56-0500 Systolic blood pressure 112 mm[Hg] Maryan Mcwliliams MD Work Phone: [facility] 06-10-2024 15:24-0500 Body height 167.6 cm Zaida Child MD Work Phone: [facility] 06-10-2024 15:24-0500 Body mass index (BMI) [Ratio] 32.28 kg/m2 Zaida Child MD Work Phone: [facility] 06-10-2024 15:24-0500 Body weight 90.72 kg Zaida Child MD Work Phone: [facility] 06-10-2024 15:24-0500 Diastolic blood pressure 84 mm[Hg] Zaida Child MD Work Phone: [facility] 06-10-2024 15:24-0500 Systolic blood pressure 132 mm[Hg] Zaida Child MD Work Phone: [facility] 05-28-2024 11:08-0500 Body height 167.6 cm Zaida Child MD Work Phone: [facility] 05-28-2024 11:08-0500 Body mass index (BMI) [Ratio] 33.09 kg/m2 Zaida Child MD Work Phone: [facility] 05-28-2024 11:08-0500 Body temperature 97.39 [degF] Zaida Child MD Work Phone: [facility] 05-28-2024 11:08-0500 Body weight 92.99 kg Zaida Child MD Work Phone: [facility] 05-28-2024 11:08-0500 Diastolic blood pressure 84 mm[Hg] Zaida Child MD Work Phone: [facility] 05-28-2024 11:08-0500 Heart rate 72 /min Zaida Child MD Work Phone: [facility] 05-28-2024 11:08-0500 SaO2% (BldA) [Mass fraction] 97 % Zaida Child MD Work Phone: [facility] 05-28-2024 11:08-0500 Systolic blood pressure 146 mm[Hg] Zaida Child MD Work Phone: [facility] 05-19-2024 11:18-0500 Body height 165.1 cm [facility] 05-19-2024 11:18-0500 Body mass index (BMI) [Ratio] 33.1 kg/m2 [facility] 05-19-2024 11:18-0500 Body weight 90.26 kg [facility] 05-19-2024 11:18-0500 Diastolic blood pressure 76 mm[Hg] [facility] 05-19-2024 11:18-0500 Heart rate 91 /min [facility] 05-19-2024 11:18-0500 Systolic blood pressure 114 mm[Hg] [facility] 05-07-2024 14:39-0400 Body height 165.1 cm [facility] 05-07-2024 14:39-0400 Body mass index (BMI) [Ratio] 33.7 kg/m2 [facility] 05-07-2024 14:39-0400 Body weight 92.07 kg [facility] 05-07-2024 14:39-0400 Diastolic blood pressure 79 mm[Hg] [facility] 05-07-2024 14:39-0400 Heart rate 76 /min [facility] 05-07-2024 14:39-0400 Systolic blood pressure 116 mm[Hg] [facility] 04-29-2024 08:21-0400 Body height 165.1 cm [facility] 04-29-2024 08:21-0400 Body mass index (BMI) [Ratio] 33.8 kg/m2 [facility] 04-29-2024 08:21-0400 Body weight 92.3 kg [facility] 04-29-2024 08:21-0400 Diastolic blood pressure 82 mm[Hg] [facility] 04-29-2024 08:21-0400 Heart rate 74 /min [facility] 04-29-2024 08:21-0400 Respiratory rate 16 /min [facility] 04-29-2024 08:21-0400 SaO2% (BldA) [Mass fraction] 96 % [facility] 04-29-2024 08:21-0400 Systolic blood pressure 120 mm[Hg] [facility] 01-24-2024 10:54-0400 Body height 165.1 cm [facility] 01-24-2024 10:54-0400 Body mass index (BMI) [Ratio] 35.6 kg/m2 [facility] 01-24-2024 10:54-0400 Body weight 97.06 kg [facility] 01-24-2024 10:54-0400 Diastolic blood pressure 81 mm[Hg] [facility] 01-24-2024 10:54-0400 Heart rate 71 /min [facility] 01-24-2024 10:54-0400 Systolic blood pressure 121 mm[Hg] [facility] 01-15-2024 10:37-0400 Blood Pressure Location Katie Lue [facility] 01-15-2024 10:37-0400 Body temperature 97.88 [degF] Katie Lue [facility] 01-15-2024 10:37-0400 Diastolic blood pressure 78 mm[Hg] Katie Lue [facility] 01-15-2024 10:37-0400 Heart rate 71 /min Katie Lue [facility] 01-15-2024 10:37-0400 Systolic blood pressure 132 mm[Hg] Katie Lue [facility] 02-20-2023 10:53-0400 Blood Pressure Location Katie Lue [facility] 02-20-2023 10:53-0400 Diastolic blood pressure 76 mm[Hg] Katie Lue [facility] 02-20-2023 10:53-0400 Heart rate 68 /min Katie Lue [facility] 02-20-2023 10:53-0400 Respiratory rate 16 /min Katie Lue [facility] 02-20-2023 10:53-0400 Systolic blood pressure 130 mm[Hg] Katie Lue [facility] 08-22-2022 11:50-0500 Blood Pressure Location Katie Lue [facility] 08-22-2022 11:50-0500 Diastolic blood pressure 78 mm[Hg] Katie Lue [facility] 08-22-2022 11:50-0500 Heart rate 68 /min Katie Lue [facility] 08-22-2022 11:50-0500 Respiratory rate 16 /min Katie Lue [facility] 08-22-2022 11:50-0500 Systolic blood pressure 132 mm[Hg] Katie Almonte [facility] 12-05-2021 10:33-0400 Diastolic blood pressure 81 mm[Hg] Mally Key Jr. [facility] 12-05-2021 10:33-0400 Mean blood pressure 101 mm[Hg] Mally Key Jr. [facility] 12-05-2021 10:33-0400 Systolic blood pressure 142 mm[Hg] Mally Key Jr. [facility] 12-05-2021 10:12-0400 Blood Pressure Location Mally Key Jr. [facility] 12-05-2021 10:12-0400 Diastolic blood pressure 97 mm[Hg] Mally Key Jr. [facility] 12-05-2021 10:12-0400 Heart rate 87 /min Mally Key Jr. [facility] [facility] 12-05-2021 10:12-0400 Respiratory rate 16 /min Mally Key Jr. [facility] 12-05-2021 10:12-0400 Systolic blood pressure 163 mm[Hg] Mally Key Jr. [facility] Encounters Encounter Date Encounter Type Care Provider Facility Start: 07-16-2024 End: 07-16-2024 ambulatory Maryan Mcwilliams MD Work Phone: [place] Work Phone: Start: 07-16-2024 End: 07-16-2024 Patient encounter procedure Maryan Mcwilliams MD Work Phone: [facility] Work Phone: Start: 07-09-2024 Non-patient / Non-visit Maryan Mcwilliams MD Work Phone: [facility] Work Phone: Start: 07-08-2024 End: 07-08-2024 ambulatory Maryan Mcwilliams Facility:[facility] Start: 07-08-2024 End: 07-08-2024 Departed Referred Maryan Mcwilliams MD Work Phone: [facility] Start: 06-10-2024 End: 06-10-2024 Office outpatient visit 15 minutes Zaida Child MD Work Phone: [facility] Comment on above: Superficial phlebiti s and thrombophlebitis of right lower extremity (Primary Dx); Varicose veins of bilateral lower extremities with pain Start: 06-10-2024 End: 06-10-2024 ambulatory ZAIDA CHILD [facility] Start: 06-03-2024 End: 06-04-2024 Orders Only [...] with pain Start: 05-19-2024 End: 05-19-2024 ambulatory [facility] Work Phone: Start: 05-19-2024 End: 05-19-2024 Patient encounter procedure [facility] Work Phone: Start: 05-07-2024 Non-patient / Non-visit [facility] Work Phone: Start: 05-07-2024 End: 05-07-2024 ambulatory [facility] Work Phone: Start: 05-07-2024 End: 05-07-2024 Patient encounter procedure [facility] Work Phone: Start: 2024 Non-patient / Non-visit [facility] Physician [facility] Work Phone: Start: 05-03-2024 Non-patient / Non-visit Maryan Mcwilliams MD Work Phone: [facility] Work Phone: Start: 05-01-2024 Patient encounter status [facility] Start: 05-01-2024 Non-patient / Non-visit [facility] Physician [facility] Work Phone: Start: 04-29-2024 End: 04-29-2024 ambulatory [facility] Work Phone: Start: 04-29-2024 End: 04-29-2024 Encounter for other preprocedural examination Maryan Mcwilliams MD Work Phone: [facility] Start: 04-29-2024 End: 04-29-2024 Patient encounter procedure [facility] Work Phone: Start: 04-10-2024 End: 04-10-2024 ambulatory Johny Perdomo DO Facility:[facility] Start: 03-20-2024 ambulatory Johny willis DO Facility:[facility] Start: 02-05-2024 Patient encounter procedure [facility] Start: 01-24-2024 End: 01-24-2024 [facility] Work Phone: Start: 01-24-2024 End: 01-24-2024 Patient encounter procedure [facility] Work Phone: Start: 01-15-2024 End: 01-15-2024 ambulatory Katie M. Lue Facility:[facility] Start: 01-15-2024 End: 01-15-2024 Lab Drop off Katie M. Lue [facility] Start: 01-15-2024 End: 01-15-2024 ambulatory Katie M. Lue Facility:[facility] Start: 01-15-2024 End: 01-15-2024 Patient encounter procedure Katie M. Lue [facility] Start: 08-01-2023 End: 08-01-2023 ambulatory Hafsa Knowles Other [employer] Other Start: 08-01-2023 Telephone encounter Hafsa Knowles [facility] Start: 07-30-2023 End: 07-30-2023 ambulatory Hafsa Knowles Other [employer] Other Start: 07-30-2023 Telephone encounter Hafsa Knowles [facility] Start: 02-20-2023 End: 02-20-2023 ambulatory Katie M. Lue Facility:[facility] [place] Start: 02-20-2023 End: 02-20-2023 Patient encounter procedure Katie M. Lue [facility] Start: 08-22-2022 End: 08-22-2022 Patient encounter procedure Katie M. Lue [facility] Start: 08-01-2022 End: 08-01-[address] ANTWON BAKER Facility:[facility] Start: 07-30-2022 End: 07-31-[address] ANTWON BAKER Facility:[facility] Start: 07-12-2022 Adult health examination Vanessa Knowles Other [place] Adyen Other Start: 06-13-2022 End: 06-14-[address] HAFSA KNOWLES Facility:[facility] Start: 12-05-2021 End: 12-05-2021 Patient encounter procedure Mally Key Jr. [facility] Start: 11-27-2021 End: 11-28-2021 ambulatory [...] Author Start: 06-10-2025 Tobacco Screening Tobacco Screening [facility] Start: 05-28-2025 Tobacco Screening Tobacco Screening [facility] Start: 06-25-2024 End: 06-25-2024 Patient encounter procedure 06/25/2024 9:20 AM EST Office Visit [facility] [address] [place] [phone] Zaida Child MD [address], [address] [address] [facility] Start: 06-18-2024 End: 06-18-2024 Patient encounter procedure 06/18/2024 10:20 AM EST Office Visit [facility] [address] [place] [phone] Zaida Child MD [address], [address] [address] [facility] Start: 05-19-2024 Patient referral [facility] Work Phone: Start: 03-15-2024 COVID-19 Vaccine ( season) COVID-19 Vaccine ( season) [facility] Start: 07-20-2023 Tobacco Screening Tobacco Screening [facility] Start: 2012 Fall Risk Screening Fall Risk Screen ing [facility] Start: 1966 DTaP,Tdap and Td Vaccines (1 - Tdap) DTaP,Tdap and Td Vaccines (1 - Tdap) [facility] Start: 1959 [facility] S[facility].axial Views for bone density [facility] MG Breast - bilatera l Screening [facility] Patient referral [facility] Work Phone: US Lower extremity v ein - right [facility] XR Tibia and Fibula - right 2 Views [facility] Immunizations Immunization Date Immunization Notes Care Provider Fa cility 04-10-2022 SARS-CoV-2 (COVID-19 ) [id number] Katie Lue [facility] 04-11-2021 SARS-CoV-2 (COVID-19 ) mRNA BNT-162b2 vax Katie Lue [facility] 02-15-2021 zoster vaccine recombinant Katie Lue [facility] 11-30-2020 zoster vaccine recombinant Katie Lue [facility] 08-30-2020 SARS-CoV-2 (COVID-19 ) mRNA BNT-162b2 vax Katie Lue [facility] Comment on above: Result Comment: 2022: [id number] 08-09-2020 SARS-CoV-2 (COVID-19 ) mRNA BNT-162b2 vax Katie Lue [facility] Comment on above: Result Comment: 2022: [id number] 05-16-2020 influenza virus vaccine, split virus (incl. purified surface antigen) Hafsa Knowles Other [employer] Other 05-16-2020 influenza virus vaccine, unspecified formulation [facility] 04-26-2020 influenza virus vaccine, unspecified formulation Katie Lue [facility] 12-16-2018 pneumococcal polysaccharide vaccine, 23 valent Hafsa Knowles Other [facility] 11-07-2017 pneumococcal conjuga te vaccine, 13 valent Mally Key Jr. [facility] 11-07-2017 pneumococcal Conjuga te, unspecified formulation; Translations: [Need for prophylactic vaccination against Streptococcus pneumoniae (pneumococcus)] Hafsa Knowles Other [employer] Other 10-13-2017 pneumococcal polysaccharide vaccine, 23 valent Katie Gage [facility] 04-14-2017 influenza virus vaccine, unspecified formulation Katie Almonte [facility] Payers Date Payer Category Payer Self-pay 2020 Commercial Indemnity [facility] [id number] 2012 Medicare 2012 Unknown 1959 Medicare [id number] 1959 Unknown [id number] 1947 Unknown [id number] 93 1947 Unknown [id number] 93 1947 Unknown [id number] 93 1947 Unknown [id number] 93 1947 Unknown [id number] 27 1947 Unknown [id number] 27 1947 Unknown [id number] 27 1947 Unknown [id number] 96 1947 Unknown [id number] 286 Medicare Medicare [id number] Unknown [id number] 31 Social History Date Type Detail Facility Start: 12-05-2021 End: 07-23-2023 Tobacco smoking status Never smoked tobacco (finding) [facility] Start: 05-28-2024 End: 06-10-2024 Sex Assigned At Female [facility] Tobacco smoking status Never [facility] Start: 1945 Sex Assigned At Female [facility] Start: 07-18-2022 Tobacco use and exposure Smokeless tobacco non-user [facility] Start: 05-28-2024 End: 06-10-2024 Alcoholic beverage intake Lifetime non-drinker (finding) [facility] Start: 05-28-2024 End: 06-10-2024 History of Social function [facility] Start: 07-18-2022 Alcohol Comment [facility] Start: 1945 Sex assigned at Not on file P Alfonso [facility] Start: 05-31-2021 End: 07-16-2024 Sex Female (finding) [facility] Functional Status Date Assessment Result Facility 01-15-2024 Functional Status N/A [facility] 02-20-2023 Functional Status N/A [facility] 08-22-2022 Functional Status N/A [facility] Clinical Notes 12-05-2021 to 06-10-2024 Assessment & [...] ultrasound compression stockings leg elevation and exercise. [facility] 06-10-2024 Evaluation + Plan note Associated Problem(s): Superficial phlebitis and thrombophlebitis of right lower extremity Warm compresses nonsteroidal anti-inflammatory drugs leg elevation and compression therapy. We will get venous reflux ultrasound and rule out DVT as well. [facility] 06-10-2024 Miscellaneous Notes Associated Problem(s): Varicose veins of bilateral lower extremities with pain Venous reflux ultrasound compression stockings leg elevation and exercise. Associated Problem(s): Superficial phlebitis and thrombophlebitis of right lower extremity Warm compresses nonsteroidal anti-inflammatory drugs leg elevation and compression therapy. We will get venous reflux ultrasound and rule out DVT as well. [facility] History of Presen t illness Narrative [...] given by office. Patient was given a [employer] coupon voucher to use, this is not [...] 06/14/2021 Performed by Vic Hitchcock DO at [facility] BREAST SURGERY bx, marker in place [...] Zaida Child MD, TRIPP, RPVI, FSVS, FACS [facility] This note was created with the assistance of a speech recognition program. While intending to generate a timely document that accurately reflects the content of the visit, no guarantee can be provided that every grammatical or spelling mistake has been or will be identified or corrected. Thank you for your understanding. documented in this encounter [facility] 05-28-2024 Evaluation + Plan note Associated Problem(s): Varicose veins of bilateral lower extremities with pain Compression stockings leg elevation exercise. Venous reflux ultrasound. [facility] 05-28-2024 Miscellaneous Notes Associated Problem(s): Varicose veins of bilateral lower extremities with pain Compression stockings leg elevation exercise. Venous reflux ultrasound. Associated Problem(s): Superficial phlebitis and thrombophlebitis of right lower extremity Nonsteroidal anti-inflammatory drugs warm compresses leg elevation and compression therapy when possible documented in this encounter [facility] 05-28-2024 Evaluation + Plan note Associated Problem(s): Superficial phlebitis and thrombophlebitis of right lower extremity Nonsteroidal anti-inflammatory drugs warm compresses leg elevation and compression therapy when possible [facility] 05-28-2024 History of Presen t illness [...] 06/14/2021 Performed by Vic Hitchcock DO at [facility] BREAST SURGERY bx, marker in place left [...] pain - [facility] [place] [place] Phlebitis and thrombophlebitis of unspecified site - [facility] [place] [place] Varicose veins of bilateral lower extremities with pain Zaida Child MD, TRIPP, RPVI, FSVS, FACS [facility] [...] for your understanding. documented in this encounter [facility] [email or web address] [facility] 04-29-2024 Evaluation note Diagnosis Onset Date Resolution Preoperative examination acute April 29 11:24am Right leg pain acute May 072023 2:12pm Phlebitis acute May 19, 2024 11:09am Right leg pain acute May 192023 11:09am Hydronephrosis, right acute Enrico uary 2024 8:54am Kidney stone acute July 16, 2024 8:54am [place] Work Phone: [phone]) 106-316509-27-2024 NoteProcedure: MRI of the right knee without [...] Is Signed, Electronically Signed in Other Vendor System)[facility]09-27-2024 NoteProcedure: MRI of the right knee without [...] Is Signed, Electronically Signed in Other Vendor System)[facility]07-03-2024 Evaluation + Plan note Diagnostic Tests Pending * Urine Culture 01/15/24 [facility]07-03-2024 Hospital Discharge instructions Patient Education 01/15/2024 [...] provider. Document Revised: 11/09/2021 Document Reviewed: 11/09/2021 [employer] Patient Education 2022 [employer] Follow Up Care 02/20/2023 12:02:25 With:Gage JACOB, HARSH CarreraL, URO Address: [address], [place] [phone] When: Unknown [facility] [place] 07-03-2024 NotePatient Education Obstetrics and Gynecology Kegel [...] provider. Document Revised: 11/09/2021 Document Reviewed: 11/09/2021 [employer] Patient Education ? 2022 [employer] 07-30-2023 Evaluation note* Encounter Date Diagnosis Assessment Notes Treatment Notes Treatment Clinical Notes Jul, Acute non-recurrent maxillary sinusitis (ICD-10 - J01.00) [employer] Other 08-09-2023 Hospital Discharge instructions Patient Education 02/20/2023 09:58:29 Urinary Tract Infection, Adult, [id number] Urinary Tract Infection, Adult A urinary tract [...] Follow these instructions at home: Medicines Take zfnh-kpa-thbsmuk and prescription medicines only as told by [...] provider. Document Revised: 02/10/2021 Document Reviewed: 02/10/2021 [employer] Patient Education 2022 [employer] Follow Up Care 08/22/2022 12:56:32 With:Gage JACOB, KEKE Carrera, URO Address: When:Within 1 Year(s) [facility] 02-08-2023 Hospital Discharge instructions Patient [...] 06/17/2013 Document Revised: 02/18/2019 Document Reviewed: 02/18/2019 [employer] Patient Education 2020 [employer] Follow Up Care 06/13/2022 11:42:12 With:Gage JACOB, KEKE Carrera, URO Address: When: Unknown [facility] 05-24-2022 Hospital Discharge instructions Patient [...] provider gives to you. In general: Take fokp-jen-fvtstys and prescription medicines only as told by [...] 01/26/2015 Document Revised: 08/07/2018 Document Reviewed: 08/07/2018 [employer] Patient Education 2019 [employer] Follow Up Care 06/07/2021 13:20:37 With:Shahid Ontiveros MD, Mally Mendiola, URO Address: [facility] [address], [place] [address]- When: Unknown [facility] evaluation + Plan note No data available for this section [facility] evaluation + Plan note Future Appointments Appointment Date:02/20/2023 10:45:00 AM Scheduled Provider:Katie Almonte MD Location:[facility] Appointment Type:URO Office Visit [facility] evaluation + Plan note Future Appointments Appointment Date:02/26/2024 10:45:00 AM Scheduled Provider:Katie Almonte MD Location:[facility] Appointment Type:URO Office Visit [facility] Other evaluation note* Diagnosis Onset Date Resolution Status Menopausal and postmenopausal disorder acute Screening mammogram for breast cancer acute [place] Work Phone: Evaluation noteNo assessment information available [place] Work Phone: Evaluation note* Diagnosis Onset Date Resolution Status Preoperative examination acu te Right leg pain acute [place] Work Phone: Evaluation note* Diagnosis Onset Date Resolution Status Preoperative examination acu te Right leg pain acute Phlebitis acute Right leg pain acute [place] Work Phone: Evaluation note* Diagnosis Superficial phlebitis [...] with pain documented in this [facility] N[facility]ative - Reported* Type [...] ABOVE SURGERY Hospitalization History CHILD X'S 2 [employer] Other Hospital Discharge instructions No data available for this section [facility] Discharge instructionsAmbulatory Orders* Referral to Vascular Surgery Time Frame: 05/19/24, Location: None [facility] Work Phone: InstructionsNot on filedocumented in this encounter [facility] on filedocumented in this encounter [facility]Not on filedocumented in this encounter [facility] No data available for this section [facility] Summary Purpose Family History Relationship Condition [...] and content) DATE CREATED AUTHOR [facility]/02/2022 [facility] DATE CREATED AUTHOR AUTHOR'S ORGANIZ ATION 01/16/2024 [facility] DATE CREATED AUTHOR AUTHOR'S ORGANIZ ATION 01/19/2024 [facility] DATE CREATED AUTHOR AUTHOR'S ORGANIZ ATION 04/11/2024 [facility] DATE CREATED AUTHOR AUTHOR'S ORGANIZ ATION 06/13/2024 [facility] DATE CREATED AUTHOR AUTHOR'S ORGANIZ ATION 07/12/2024 [facility] Patient Care team informatio n [...] May 19, 2024 End: May 19, 2024 [employer] 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 Start Date End Date Hafsa Knowles MD [address] [place] [address] PCP - General Family Medicine 06/01/21 [employer] App[employer] 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 Start Date End Date Hafsa Knowles MD [address] [place] [address] PCP - General Family Medicine 06/01/21 [employer] App[employer]ice 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 Start Date End Date Hafsa Knowles MD [address] [place] [address] PCP - General Family Medicine 06/01/21 Team [...] thrombophlebitis of unspecified site Hafsa Knowles MD [address] [place] [address] Phone: tel: fax: [facility] [address] [place] [address] Phone: tel:[phone] fax: Referral ID Status Reason Start Date Expiration Date Visits Requested Visits Authorized [id number] Pending Review Specialty Services Required 05/20/2024 05/20/2025 [...] BE BASED ON THE PRIMARY CLINICAL RECORDS. [employer] provides no warranty or guarantee of the accuracy or completeness of information in this document.
--- NOTE | 2024-08-10 11:53 | P.DS_ITS ---
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
--- NOTE | 2024-08-10 11:53 | W.VEIN ---
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
== END 2024-08-10 11:54 | disposition home or self-care (01) ==
PROVIDERS: PCP Family Medicine; Visit Provider Radiology Diagnostic Radiology
DX: I80.01 Phlebitis and thrombophlebitis of superficial vessels of right lower extremity (principal)
CPT/HCPCS: 93971; G0463

== ENCOUNTER 2024-08-13 10:52 | Outpatient (OUT) | payer MEDICARE, OTHER, SELFPAY ==
--- NOTE | 2024-08-12 11:11 | VEINCLINIC_ITS ---
Varicose Veins Patient in today for microfoam chemical ablation left leg Blanco Michel MD personally performed the services described in this documentation, as scribed by Saeid Godinez RN in my presence and it is both accurate and complete. Saeid Michel RN, am scribing for, and in the presence of, Dr. Blanco Sullivan and in the presence of the patient. thigh: bilateral, knee: bilateral, calf: bilateral, ankle: bilateral and anderson: bilateral aching, sharp and tender 3 8 weeks Worsened in recent months: Yes standing analgesics, elevating extremities and compression stockings Reports erythema, bruising, heaviness, limb pain, edema and leg edema History of lower extremity trauma: No Superficial thrombophlebitis: Yes Family history of varicose veins: yes Has patient had previous lower extremity venous surgery: No Patient has previously received the following treatment(s) for lower extremity varicose veins: Reports none Does patient have a history of : yes Does patient intend to have future pregnancies: no Has patient had lower extremity venous scan with relux testing: Yes Support hose used: Yes Problems walking or doing physical activity: Yes How does it affect you: Unable to stand for long periods of time Do you walk much: Yes Do you stand much: Yes Review of Systems ROS Narrative Blanco Michel MD personally performed the services described in this documentation, as scribed by Saeid Godinez RN in my presence and it is both accurate and complete. Saeid Michel RN, am scribing for, and in the presence of, Dr. Blanco Sullivan and in the presence of the patient. Status of ROS 10 or more systems reviewed and unremark able except as noted in history and below Cardiovascular Reports: edema and swelling of feet/ankles Musculoskeletal Reports: extremity pain, extremity swelling, joint pain, joint swelling and muscle cramps Integumentary/Breast Reports: itching, redness, skin pain, skin tenderness, skin swelling and sores [facility] Medical History (Updated 07/08/24 @ 10:56 by Maryan Mcwilliams MD) Phlebitis and thrombophlebitis of superficial vessels of right lower extremity ?I80.01 - Phlebitis and thrombophlebitis of superficial vessels of right lower extremity (ICD-10) Phlebitis and thrombophlebitis of superficial vessels of left lower extremity ?I80.02 - Phlebitis and thrombophlebitis of superficial vessels of left lower extremity (ICD-10) Pain due to varicose veins of both lower extremities ?I83.813 - Varicose veins of bilateral lower extremities with pain (ICD-10) Raynaud disease ?I73.00 - Raynaud's syndrome without gangrene (ICD-10) Arthritis ?M19.90 - Unspecified osteoarthritis, unspecified site (ICD-10) History of ITP (1989) ?Z86.2 - Personal history of diseases of the blood and blood-forming organs and certain disorders involving the immune mechanism (ICD-10) History of blood transfusion ?Z92.89 - Personal history of other medical treatment (ICD-10) Thyroid cyst ?E04.1 - Nontoxic single thyroid nodule (ICD-10) Phlebitis ?I80.9 - Phlebitis and thrombophlebitis of unspecified site (ICD-10) Varicose vein of leg ?I83.90 - Asymptomatic varicose veins of unspecified lower extremity (ICD-10) Knee pain ?M25.569 - Pain in unspecified knee (ICD-10) Seasonal allergic rhinitis ?J30.2 - Other seasonal allergic rhinitis (ICD-10) Cataracts, bilateral ?H26.9 - Unspecified cataract (ICD-10) Hyperparathyroidism ?E21.3 - Hyperparathyroidism, unspecified (ICD-10) Renal cyst ?N28.1 - Cyst of kidney, acquired (ICD-10) Osteopenia ?M85.80 - Other specified disorders of bone density and structure, unspecified site (ICD-10) Vitamin D deficiency ?E55.9 - Vitamin D deficiency, unspecified (ICD-10) Chronic UTI ?N39.0 - Urinary tract infection, site not specified (ICD-10) Genu varum of right lower extremity ?M21.161 - Varus deformity, not elsewhere classified, right knee (ICD-10) Primary osteoarthritis of right knee ?M17.11 - Unilateral primary osteoarthritis, right knee (ICD-10) Surgical History (Updated 08/04/24 @ 15:16 by Saeid Godinez) S/P sclerotherapy of varicose veins ?Z98.890 - Other specified postprocedural states (ICD-10) ?Z86.79 - Personal history of other diseases of the circulatory system (ICD- 10) S/P sclerotherapy of varicose veins ?Z98.890 - Other specified postprocedural states (ICD-10) ?Z86.79 - Personal history of other diseases of the circulatory system (ICD- 10) S/P sclerotherapy of varicose veins ?Z98.890 - Other specified postprocedural states (ICD-10) ?Z86.79 - Personal history of other diseases of the circulatory system (ICD- 10) Status post laser ablation of incompetent vein ?Z98.890 - Other specified postprocedural states (ICD-10) Status post laser ablation of incompetent vein ?Z98.890 - Other specified postprocedural states (ICD-10) Status post laser ablation of incompetent vein ?Z98.890 - Other specified postprocedural states (ICD-10) History of colonoscopy ?Z98.890 - Other specified postprocedural states (ICD-10) H/O knee surgery ?Z98.890 - Other specified postprocedural states (ICD-10) H/O breast biopsy ?Z98.890 - Other specified postprocedural states (ICD-10) History of cholecystectomy ?Z90.49 - Acquired absence of other specified parts of digestive tract (ICD- 10) H/O oophorectomy H/O parathyroidectomy ?Z98.890 - Other specified postprocedural states (ICD-10) ?Z90.89 - Acquired absence of other organs (ICD-10) History of hysterectomy ?Z90.710 - Acquired absence of both cervix and uterus (ICD-10) H/O tubal ligation ?Z98.51 - Tubal ligation status (ICD-10) H/O splenectomy (1989) ?Z90.81 - Acquired absence of spleen (ICD-10) S/P arthroscopic knee surgery ?Z98.890 - Other specified postprocedural states (ICD-10) Family History (Updated 06/16/24 @ 10:21 by Hilda Reyes RN) Mother Varicose veins of bilateral lower extremities with pain Father Family history of myocardial infarction Other Cancer Family history of DVT Family history of cancer Social History (Updated 05/01/24 @ 08:31 by Francesca Zavala NP) Within the past year, how often did you have a drink containing alcohol: never Score interpretation: A score less than 3 is consistent with normal alcohol consumption. 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 Highest level of school completed/degree received: some college, no degree Little interest or pleasure in doing things: not at all Feeling down, depressed, or hopeless: not at all Meds Home Medications and Allergies Home Medications ?Medication ?Instructions ?Recorded ?Confirmed ?Type biotin 5 mg capsule 5 mg PO DAILY 05/01/24 06/16/24 History cholecalciferol (vitamin D3) 125 125 mcg PO DAILY 05/01/24 06/16/24 History mcg (5,000 unit) capsule cranberry 500 mg capsule 500 mg PO DAILY 05/01/24 06/16/24 History d-mannose 500 mg capsule mg PO 05/01/24 History estradiol 0.01% (0.1 mg/gram) 0.5 appful vaginal .twice a week 05/01/24 06/16/24 History vaginal cream loratadine 10 mg capsule 10 mg PO DAILY 05/01/24 06/16/24 History [id number] 30 mg-folic cap PO 06/16/24 History acid 1 mg-dss 50 mg-dha 260 mg capsule cephalexin 500 mg capsule 500 mg PO BID #10 caps 07/08/24 Rx tamsulosin 0.4 mg capsule (Flomax) 0.4 mg PO DAILY #7 caps 07/08/24 Rx tramadol 50 mg tablet 50 mg PO Q8H PRN pain 2 days #6 07/08/24 07/13/24 Rx tabs Allergies Allergy/AdvReac Type Severity Reaction Status Date / Time codeine AdvReac Nausea Verified 05/01/24 08:26 Exam Narrative Exam Narrative: Blanco Michel MD personally performed the services described in this documentation, as scribed by Saeid Godinez RN in my presence and it is both accurate and complete. Saeid Michel RN, am scribing for, and in the presence of, Dr. Blanco Sullivan and in the presence of the patient. Constitutional Documenting provider has reviewed patient's vital signs: yes Common normals: oriented x3 Nutritional appearance: overweight Lymph Lymphatic: no lymphedema noted Cardio Peripheral pulses: posterior tibial pulses present and dorsalis pedis pulses present Extremity General: calf tenderness, edema and other findings Right lower extremity: lower leg Right lower leg: inspection and palpation Left lower extremity: lower leg Left lower leg: inspection and palpation Neuro Common normals: oriented x3 Assessment and Plan Assessment and Plan (1) Pain due to varicose veins of both lower extremities: Plan f/u evaluation with physician along with left leg limited u/s Blanco Michel MD personally performed the services described in this documentation, as scribed by Saeid Godinez RN in my presence and it is both accurate and complete. I, Saeid Godinez RN, am scribing for, and in the presence of, Dr. Blanco Sullivan and in the presence of the patient. Procedures Procedure Instructions Procedures Left leg microfoam chemical ablation/Varithena: Risks and benefits of the procedure were discussed at length and informed written consent was obtained.? Time-out procedure was performed and the correct patient and procedure were confirmed.? Staff present during time-out: Saeid Godinez RN and Blanco Sullivan MD.? Patient prepped and procedure performed in usual sterile fashion.? Patient was placed in Trendelenburg prior to Polidocanol/Varithena injections. Sclerosing Agent:?? cc 1% Polidocanol/Varithena Site Injected: left leg: Number of Injections:? The patient tolerated the procedure well without complication.? Hemostasis was obtained and thigh-high compression stocking was applied with foam pads.? Instructed patient to wear stocking for at least 96 hours and sleep with it and only remove for showering.? The patient was instructed to? wear stocking for 2 weeks.? Patient verbalizes understanding and states they will comply.? Patient was given post-procedure instructions. Patient was discharged in good condition.? Scheduled to undergo limited venous ultrasound and? exam on IBlanco MD personally performed the services described in this documentation, as scribed by Saeid Godinez RN in my presence and it is both accurate and complete. Saeid Michel RN, am scribing for, and in the presence of, Dr. Blanco Sullivan and in the presence of the patient.
--- NOTE | 2024-08-12 11:14 | W.VEIN ---
Discharge Plan Discharge Disposition: Home, Self-Care Outpatient Diagnostics: [facility] Facility EST LMTD (Routine) Timeframe: 2 Weeks Facility: [facility] - Location: [facility] Ordered By: Blanco Sullivan VC EXT Venous LT Limited (Routine) Timeframe: 2 Weeks Facility: [facility] - Location: Vein Center Ordered By: Blanco Sullivan Plan of Treatment: f/u evaluation with physician along with left leg limited u/s Print Language: Maltese
--- NOTE | 2024-08-13 07:46 | VEINCLINIC_ITS ---
Vital Signs 08/13/24 11:13 BP Location Left Brachial BP Position Sitting BP Cuff Size Adult BP Source Manual Cuff Respiration 18 Pulse 74 Pulse Source Monitor Pulse Oximetry (%) 96 Oxygen Delivery Method Room Air Varicose Veins Patient in this day for varithena/microfoam chemical ablation left leg. Blanco Michel MD personally performed the services described in this documentation, as scribed by Hilda Reyes RN in my presence and it is both accurate and complete. Hilda Michel RN, am scribing for, and in the presence of, Dr. Blanco Sullivan and in the presence of the patient. thigh: bilateral, knee: bilateral, calf: bilateral, ankle: bilateral and anderson: bilateral aching, sharp and tender 3 8 weeks Worsened in recent months: Yes standing analgesics, elevating extremities and compression stockings Reports erythema, bruising, heaviness, limb pain, edema and leg edema History of lower extremity trauma: No Superficial thrombophlebitis: Yes Family history of varicose veins: yes Has patient had previous lower extremity venous surgery: No Patient has previously received the following treatment(s) for lower extremity varicose veins: Reports none Does patient have a history of : yes Does patient intend to have future pregnancies: no Has patient had lower extremity venous scan with relux testing: Yes Support hose used: Yes Problems walking or doing physical activity: Yes How does it affect you: Unable to stand for long periods of time Do you walk much: Yes Do you stand much: Yes Review of Systems ROS Narrative Blanco Michel MD personally performed the services described in this documentation, as scribed by Hilda Reyes RN in my presence and it is both accurate and complete. Hilda Michel RN, am scribing for, and in the presence of, Dr. Blanco Sullivan and in the presence of the patient. Status of ROS 10 or more systems reviewed and unremark able except as noted in history and below Cardiovascular Reports: edema and swelling of feet/ankles Musculoskeletal Reports: extremity pain, extremity swelling, joint pain, joint swelling and muscle cramps Integumentary/Breast Reports: itching, redness, skin pain, skin tenderness, skin swelling and sores [facility] Medical History (Updated 07/08/24 @ 10:56 by Maryan Mcwilliams MD) Phlebitis and thrombophlebitis of superficial vessels of right lower extremity ?I80.01 - Phlebitis and thrombophlebitis of superficial vessels of right lower extremity (ICD-10) Phlebitis and thrombophlebitis of superficial vessels of left lower extremity ?I80.02 - Phlebitis and thrombophlebitis of superficial vessels of left lower extremity (ICD-10) Pain due to varicose veins of both lower extremities ?I83.813 - Varicose veins of bilateral lower extremities with pain (ICD-10) Raynaud disease ?I73.00 - Raynaud's syndrome without gangrene (ICD-10) Arthritis ?M19.90 - Unspecified osteoarthritis, unspecified site (ICD-10) History of ITP (1989) ?Z86.2 - Personal history of diseases of the blood and blood-forming organs and certain disorders involving the immune mechanism (ICD-10) History of blood transfusion ?Z92.89 - Personal history of other medical treatment (ICD-10) Thyroid cyst ?E04.1 - Nontoxic single thyroid nodule (ICD-10) Phlebitis ?I80.9 - Phlebitis and thrombophlebitis of unspecified site (ICD-10) Varicose vein of leg ?I83.90 - Asymptomatic varicose veins of unspecified lower extremity (ICD-10) Knee pain ?M25.569 - Pain in unspecified knee (ICD-10) Seasonal allergic rhinitis ?J30.2 - Other seasonal allergic rhinitis (ICD-10) Cataracts, bilateral ?H26.9 - Unspecified cataract (ICD-10) Hyperparathyroidism ?E21.3 - Hyperparathyroidism, unspecified (ICD-10) Renal cyst ?N28.1 - Cyst of kidney, acquired (ICD-10) Osteopenia ?M85.80 - Other specified disorders of bone density and structure, unspecified site (ICD-10) Vitamin D deficiency ?E55.9 - Vitamin D deficiency, unspecified (ICD-10) Chronic UTI ?N39.0 - Urinary tract infection, site not specified (ICD-10) Genu varum of right lower extremity ?M21.161 - Varus deformity, not elsewhere classified, right knee (ICD-10) Primary osteoarthritis of right knee ?M17.11 - Unilateral primary osteoarthritis, right knee (ICD-10) Surgical History (Updated 08/04/24 @ 15:16 by Saeid Godinez) S/P sclerotherapy of varicose veins ?Z98.890 - Other specified postprocedural states (ICD-10) ?Z86.79 - Personal history of other diseases of the circulatory system (ICD- 10) S/P sclerotherapy of varicose veins ?Z98.890 - Other specified postprocedural states (ICD-10) ?Z86.79 - Personal history of other diseases of the circulatory system (ICD- 10) S/P sclerotherapy of varicose veins ?Z98.890 - Other specified postprocedural states (ICD-10) ?Z86.79 - Personal history of other diseases of the circulatory system (ICD- 10) Status post laser ablation of incompetent vein ?Z98.890 - Other specified postprocedural states (ICD-10) Status post laser ablation of incompetent vein ?Z98.890 - Other specified postprocedural states (ICD-10) Status post laser ablation of incompetent vein ?Z98.890 - Other specified postprocedural states (ICD-10) History of colonoscopy ?Z98.890 - Other specified postprocedural states (ICD-10) H/O knee surgery ?Z98.890 - Other specified postprocedural states (ICD-10) H/O breast biopsy ?Z98.890 - Other specified postprocedural states (ICD-10) History of cholecystectomy ?Z90.49 - Acquired absence of other specified parts of digestive tract (ICD- 10) H/O oophorectomy H/O parathyroidectomy ?Z98.890 - Other specified postprocedural states (ICD-10) ?Z90.89 - Acquired absence of other organs (ICD-10) History of hysterectomy ?Z90.710 - Acquired absence of both cervix and uterus (ICD-10) H/O tubal ligation ?Z98.51 - Tubal ligation status (ICD-10) H/O splenectomy (1989) ?Z90.81 - Acquired absence of spleen (ICD-10) S/P arthroscopic knee surgery ?Z98.890 - Other specified postprocedural states (ICD-10) Family History (Updated 06/16/24 @ 10:21 by Hilda Reyes RN) Mother Varicose veins of bilateral lower extremities with pain Father Family history of myocardial infarction Other Cancer Family history of DVT Family history of cancer Social History (Updated 05/01/24 @ 08:31 by Francesca Zavala NP) Within the past year, how often did you have a drink containing alcohol: never Score interpretation: A score less than 3 is consistent with normal alcohol consumption. 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 Highest level of school completed/degree received: some college, no degree Little interest or pleasure in doing things: not at all Feeling down, depressed, or hopeless: not at all Meds Home Medications and Allergies Home Medications ?Medication ?Instructions ?Recorded ?Confirmed ?Type biotin 5 mg capsule 5 mg PO DAILY 05/01/24 06/16/24 History cholecalciferol (vitamin D3) 125 125 mcg PO DAILY 05/01/24 06/16/24 History mcg (5,000 unit) capsule cranberry 500 mg capsule 500 mg PO DAILY 05/01/24 06/16/24 History d-mannose 500 mg capsule mg PO 05/01/24 History estradiol 0.01% (0.1 mg/gram) 0.5 appful vaginal .twice a week 05/01/24 06/16/24 History vaginal cream loratadine 10 mg capsule 10 mg PO DAILY 05/01/24 06/16/24 History [id number] 30 mg-folic cap PO 06/16/24 History acid 1 mg-dss 50 mg-dha 260 mg capsule cephalexin 500 mg capsule 500 mg PO BID #10 caps 07/08/24 Rx tamsulosin 0.4 mg capsule (Flomax) 0.4 mg PO DAILY #7 caps 07/08/24 Rx tramadol 50 mg tablet 50 mg PO Q8H PRN pain 2 days #6 07/08/24 07/13/24 Rx tabs Allergies Allergy/AdvReac Type Severity Reaction Status Date / Time codeine AdvReac Nausea Verified 05/01/24 08:26 Exam Narrative Exam Narrative: IBlanco MD personally performed the services described in this documentation, as scribed by Hilda Reyes RN in my presence and it is both accurate and complete. Hilda Michel RN, am scribing for, and in the presence of, Dr. Blanco Sullivan and in the presence of the patient. Constitutional Documenting provider has reviewed patient's vital signs: yes Common normals: oriented x3 Nutritional appearance: overweight Lymph Lymphatic: no lymphedema noted Cardio Peripheral pulses: posterior tibial pulses present and dorsalis pedis pulses present Extremity General: calf tenderness, edema and other findings Right lower extremity: lower leg Right lower leg: inspection and palpation Left lower extremity: lower leg Left lower leg: inspection and palpation Neuro Common normals: oriented x3 Assessment and Plan Assessment and Plan (1) Pain due to varicose veins of both lower extremities: Plan The patient tolerated the procedure well without complication.? The patient verbalizes understanding and states they will comply.? Patient was given post- procedure instructions. Patient was discharged in good condition.? Scheduled to undergo follow-up evaluation on 08/17/24. Blanco Michel MD personally performed the services described in this documentation, as scribed by Hilda Reyes RN in my presence and it is both accurate and complete. Hilda Michel RN, am scribing for, and in the presence of, Dr. Blanco Sullivan and in the presence of the patient. Procedures Procedure Instructions Procedures leg microfoam chemical ablation/Varithena: Risks and benefits of the procedure were discussed at length and informed written consent was obtained.? Time-out procedure was performed and the correct patient and procedure were confirmed.? Staff present during time-out: Hilda Reyes RN and Blanco Sullivan MD.? Patient prepped and procedure performed in usual sterile fashion.? Patient was placed in Trendelenburg prior to Polidocanol/Varithena injections. Sclerosing Agent:?? 4cc 1% Polidocanol/Varithena Site Injected: left leg Number of Injections:? 7cc into 5mm vein left distal posterior calf 4cc into 4mm vein into left mid anterior thigh 4cc into 4mm vein into left distal medial lower leg The patient tolerated the procedure well without complication.? Hemostasis was obtained and thigh-high compression stocking was applied with foam pads.? Instructed patient to wear stocking for at least 96 hours and sleep with it and only remove for showering.? The patient was instructed to? wear stocking for 2 weeks.? Patient verbalizes understanding and states they will comply.? Patient was given post-procedure instructions. Patient was discharged in good condition.? Scheduled to undergo limited venous u ltrasound and? exam on 08/17/24. Blanco Michel MD personally performed the services described in this documentation, as scribed by Hilda Reyes RN in my presence and it is both accurate and complete. I, Hilda Reyes RN, am scribing for, and in the presence of, Dr. Blanco Sullivan and in the presence of the patient.
--- NOTE | 2024-08-13 07:49 | P.DS_ITS ---
Discharge Plan Discharge Disposition: Home, Self-Care Outpatient Diagnostics: [facility] Facility EST LMTD (Routine) Timeframe: 2 Weeks Facility: [facility] - Location: Vein Center Ordered By: Blanco Sullivan VC EXT Venous LT Limited (Routine) Timeframe: 2 Weeks Facility: [facility] - Location: Vein Center Ordered By: Blanco Sullivan Follow Up Appointments: 08/17/24. Plan of Treatment: f/u evaluation with physician along with left leg limited u/s Patient Instructions: Polidocanol (By injection) (Asclera, Varithena) Print Language: Slovenian Discharge Date/Time: 08/13/24 12:12
--- NOTE | 2024-08-13 07:49 | V.VEINS.HP ---
[facility] Medical History (Updated 07/08/24 @ 10:56 by Maryan Mcwilliams MD) Phlebitis and thrombophlebitis of superficial vessels of right lower extremity ?I80.01 - Phlebitis and thrombophlebitis of superficial vessels of right lower extremity (ICD-10) Phlebitis and thrombophlebitis of superficial vessels of left lower extremity ?I80.02 - Phlebitis and thrombophlebitis of superficial vessels of left lower extremity (ICD-10) Pain due to varicose veins of both lower extremities ?I83.813 - Varicose veins of bilateral lower extremities with pain (ICD-10) Raynaud disease ?I73.00 - Raynaud's syndrome without gangrene (ICD-10) Arthritis ?M19.90 - Unspecified osteoarthritis, unspecified site (ICD-10) History of ITP (1989) ?Z86.2 - Personal history of diseases of the blood and blood-forming organs and certain disorders involving the immune mechanism (ICD-10) History of blood transfusion ?Z92.89 - Personal history of other medical treatment (ICD-10) Thyroid cyst ?E04.1 - Nontoxic single thyroid nodule (ICD-10) Phlebitis ?I80.9 - Phlebitis and thrombophlebitis of unspecified site (ICD-10) Varicose vein of leg ?I83.90 - Asymptomatic varicose veins of unspecified lower extremity (ICD-10) Knee pain ?M25.569 - Pain in unspecified knee (ICD-10) Seasonal allergic rhinitis ?J30.2 - Other seasonal allergic rhinitis (ICD-10) Cataracts, bilateral ?H26.9 - Unspecified cataract (ICD-10) Hyperparathyroidism ?E21.3 - Hyperparathyroidism, unspecified (ICD-10) Renal cyst ?N28.1 - Cyst of kidney, acquired (ICD-10) Osteopenia ?M85.80 - Other specified disorders of bone density and structure, unspecified site (ICD-10) Vitamin D deficiency ?E55.9 - Vitamin D deficiency, unspecified (ICD-10) Chronic UTI ?N39.0 - Urinary tract infection, site not specified (ICD-10) Genu varum of right lower extremity ?M21.161 - Varus deformity, not elsewhere classified, right knee (ICD-10) Primary osteoarthritis of right knee ?M17.11 - Unilateral primary osteoarthritis, right knee (ICD-10) Surgical History (Updated 08/04/24 @ 15:16 by Saeid Godinez) S/P sclerotherapy of varicose veins ?Z98.890 - Other specified postprocedural states (ICD-10) ?Z86.79 - Personal history of other diseases of the circulatory system (ICD-10) S/P sclerotherapy of varicose veins ?Z98.890 - Other specified postprocedural states (ICD-10) ?Z86.79 - Personal history of other diseases of the circulatory system (ICD-10) S/P sclerotherapy of varicose veins ?Z98.890 - Other specified postprocedural states (ICD-10) ?Z86.79 - Personal history of other diseases of the circulatory system (ICD-10) Status post laser ablation of incompetent vein ?Z98.890 - Other specified postprocedural states (ICD-10) Status post laser ablation of incompetent vein ?Z98.890 - Other specified postprocedural states (ICD-10) Status post laser ablation of incompetent vein ?Z98.890 - Other specified postprocedural states (ICD-10) History of colonoscopy ?Z98.890 - Other specified postprocedural states (ICD-10) H/O knee surgery ?Z98.890 - Other specified postprocedural states (ICD-10) H/O breast biopsy ?Z98.890 - Other specified postprocedural states (ICD-10) History of cholecystectomy ?Z90.49 - Acquired absence of other specified parts of digestive tract (ICD-10) H/O oophorectomy H/O parathyroidectomy ?Z98.890 - Other specified postprocedural states (ICD-10) ?Z90.89 - Acquired absence of other organs (ICD-10) History of hysterectomy ?Z90.710 - Acquired absence of both cervix and uterus (ICD-10) H/O tubal ligation ?Z98.51 - Tubal ligation status (ICD-10) H/O splenectomy (1989) ?Z90.81 - Acquired absence of spleen (ICD-10) S/P arthroscopic knee surgery ?Z98.890 - Other specified postprocedural states (ICD-10) Family History (Updated 06/16/24 @ 10:21 by Hilda Reyes, RN) Mother Varicose veins of bilateral lower extremities with pain Father Family history of myocardial infarction Other Cancer Family history of DVT Family history of cancer Social History (Updated 05/01/24 @ 08:31 by Francesca Zavala NP) Within the past year, how often did you have a drink containing alcohol: never Score interpretation: A score less than 3 is consistent with normal alcohol consumption. 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 Highest level of school completed/degree received: some college, no degree Little interest or pleasure in doing things: not at all Feeling down, depressed, or hopeless: not at all Meds Home Medications and Allergies Home Medications ?Medication ?Instructions ?Recorded ?Confirmed ?Type biotin 5 mg capsule 5 mg PO DAILY 05/01/24 06/16/24 History cholecalciferol (vitamin D3) 125 125 mcg PO DAILY 05/01/24 06/16/24 History mcg (5,000 unit) capsule cranberry 500 mg capsule 500 mg PO DAILY 05/01/24 06/16/24 History d-mannose 500 mg capsule mg PO 05/01/24 History estradiol 0.01% (0.1 mg/gram) 0.5 appful vaginal .twice a week 05/01/24 06/16/24 History vaginal cream loratadine 10 mg capsule 10 mg PO DAILY 05/01/24 06/16/24 History lcs16-vjof 30 mg-folic cap PO 06/16/24 History acid 1 mg-dss 50 mg-dha 260 mg capsule cephalexin 500 mg capsule 500 mg PO BID #10 caps 07/08/24 Rx tamsulosin 0.4 mg capsule (Flomax) 0.4 mg PO DAILY #7 caps 07/08/24 Rx tramadol 50 mg tablet 50 mg PO Q8H PRN pain 2 days #6 07/08/24 07/13/24 Rx tabs Allergies Allergy/AdvReac Type Severity Reaction Status Date / Time codeine AdvReac Nausea Verified 05/01/24 08:26 Assessment and Plan Assessment and Plan (1) Pain due to varicose veins of both lower extremities: Plan The patient tolerated the procedure well without complication.? The patient verbalizes understanding and states they will comply.? Patient was given post-procedure instructions. Patient was discharged in good condition.? Scheduled to undergo follow-up evaluation on I,Blanco Sullivan MD personally performed the services described in this documentation, as scribed by Hilda Reyes RN in my presence and it is both accurate and complete. I, Hilda Reyes RN, am scribing for, and in the presence of, Dr. Blanco Sullivan and in the presence of the patient.
--- NOTE | 2024-08-13 10:54 | VEIN_ITS ---
[address] [address] Patient Name: BHAVESH MONTEIRO MRN: [id number] date: 1945 Sex: F Assigned Patient Location: Current Patient Location: Accession/Order Number: [id number] Exam Date: 08/13/2024 10:54 Report Date: 08/13/2024 12:07 At the request of: BLANCO SULLIVAN Procedure: VC INJ Foam Sclerosant WUS CLERK OF WORKS PROCEDURE: VC INJ Foam Sclerosant WUS CLERK OF WORKS HISTORY: I83.813 - Varicose veins of bilateral lower extremities w... Pre-operative Diagnosis: CEAP class C4a venous insufficiency with pain, tenderness, edema and incompetent branch saphenous vein(s), chronic venous insufficiency left leg secondary to venous incompetence Post-operative Diagnosis: CEAP class C4a venous insufficiency with pain, tenderness, edema and incompetent branch saphenous vein(s), chronic venous insufficiency left leg secondary to venous incompetence Procedure Performed: 1. Ultrasound-guided microfoam chemical ablation with Varithenaregistered 2. Intraoperative ultrasound guidance Physician: Blanco Sullivan M.D. Anesthesia: None Indications for Procedure: 79 year old female. Symptoms including lower extremity pain, swelling, dilated bulging veins for many years despite conservative medical therapy including medical compression stockings, exercise and analgesics. Prior procedures include [endovenous laser ablation and microfoam chemical ablation. Multiple incompetent varicosities of the left leg. Duplex scan showed reflux and enlarged diameters up to 5 mm. The patient underwent informed consent including management options where the complications of infection, bleeding, pain, and skin injury were discussed. Particular attention was spent discussing thrombus extension and deep vein thrombosis as well as the possibility of pulmonary embolus and treatment with oral or injectable blood thinners. Procedure: The patient walked to the procedure room. All applicable staff donned appropriate apparel. A procedure timeout was performed to confirm correct patient, correct extremity, correct procedure, and correct room set-up including presence of all applicable supplies, devices, and drugs. A duplex ultrasound, performed by myself confirmed the location and incompetence of branch saphenous varicosities and their course was marked on the skin together with the dilated tributaries. The extent of treatment of the vein and the associated varicosities was determined through ultrasound mapping. The skin was prepped and then punctured with a butterfly needle and advanced under ultrasound guidance. The Varithenaregistered canister was activated and the canister was primed and purged as required in the instructions for use. Varithenaregistered was drawn into a sterile syringe. Varithenaregistered was slowly administered at 0.5-1.0 cc/second with close observation by ultrasound of its course in the vessels. Total volume utilized was: 15 mL (7 mL into a 5 mm incompetent varicosity distal posterior calf; 4 mL into a 4 mm varicosity mid anterior thigh; 4 mL into a 4 mm varicosity distal medial calf). Following administration of Varithenaregistered the leg was elevated and the patient was asked to repeatedly dorsiflex the ankle to limit flow of Varithenaregistered into perforating veins. Once appropriate spasm had been confirmed in the treated veins, the vascular catheter was removed from the leg and light pressure was applied over the puncture site for hemostasis. The common femoral and deep superficial veins were then evaluated for flow and compressibility prior to dressing placement. The lower extremity was kept elevated at 45 degrees above the horizontal and cording material was applied over the saphenous segments and tributaries to allow for eccentric compression over the target vessels including the targeted saphenous vein(s). A multilayer dressing was applied consisting of foam pads, coban and thigh-high 20-30 mm Hg compression elastic support hose were placed on the patient. The leg was lowered only after compression had been applied and the patient was immediately ambulatory. The patient ambulated 10 minutes under supervision and was without apparent concerns at time of release. Post-care instructions include advising patient to keep post-treatment bandages in place and dry for 48 hours, avoid extended periods of inactivity, avoid heavy exercise for one week, wear compression stockings on the treated leg continuously for two weeks, to walk daily for 10 minutes over the next month. The patient was instructed to take an anti-inflammatory medicine as needed and to follow up for color duplex scan of the Saphenous veins, the treated branch saphenous varicosities, the adjacent deep veins, and additional treatment within 7 days. PERSONNEL: Anat Belle RDMS, RVT, Nichole Wesley RDMS Electronically authenticated by: BLANCO SULLIVAN Date: 08/13/2024 12:07
--- OUTSIDE RECORDS SUMMARY | 2024-08-13 11:05 | XMS_ITS | CCD ---
Author Organization [facility] Care Team Providers Care Associate Doctor Name Role Phone HAFSA KNOWLES Primary Care [...] Care Hafsa Lan MD Primary Care Provider [phone] ZAIDA CHILD Attending Unavailable HAFSA KNOWLES Referring Unavailable HAFSA KNOWLES Primary Care Unavailable Maryan Mcwilliams Attending Unavailable Maryan Mcwilliams Admitting Unavailable Maryan Mcwilliams MD Attending Provider Allergies Allergy Classification Reported Allergen(s) Allergy Type Date of Onset Reaction(s) Facility (17 sources) Codeine; Translations: [codeine] Drug Allergy 12-26-19 16 Nausea [facility] (1 source) Codeine Drug Allergy [facility] Repository (2 sources) Acetaminophen / HYDROcodone Drug Allergy Unknown [facility] Other (2 sources) Codeine Drug Allergy Unknown Effective Measure Other (2 sources) patient allergy list reviewed by nurse or physicia Propensity to adverse reactions 04-29-20 15 Comment:Done Effective Measure Other (2 sources) Allergies Reconciled Propensity to adverse reactions Unknown [facility] Other (6 sources) Acetaminophen; Translations: [acetaminophen] Drug Allergy 01-24-20 24 [facility] (6 sources) HYDROcodone; Translations: [hydrocodone] Drug Allergy 01-24-20 24 [facility] (1 source) Codeine Drug Allergy 05-19-20 [facility] Repository Medications Current Medications Medication Drug Class(es) [...] take [address] [facility] once daily Biotin 5000 5 MG [...] 2 times per week after for maintenance., [facility] [employer] [facility], 168, cm, 01/15/24 10:54:00 EDT, Height/Length Dosing, 96, kg, 01/15/24 10:54:00 EDT, Weight Dosing Start Date: 01/15/24 Status: Ordered Start: 08-22-2022 Estrace 0.1 mg /g Cream See Instructions, 42.5 gm, Refill(s) 6, Apply pea-sized amound around the opening of the urethra 3 times per week for 1 month then 2 times per week after for maintenance., [facility], 168, cm, 08/22/22 11:52:00 EST, Height/Length [...] given by office. Patient was given a [employer] coupon voucher to use, this is not to be ran through patients insurance. 24 tablet 07/18/2022 Active Vitamin D-3 1000 UNIT (2 sources) take 1 capsule by [facility] once daily Vitamin D-3 1000 UNIT [...] 2:53pm Start: 12-05-2021 take 1 capsule by [facility] every twelve hours Keflex 500 mg Cap 500 mg = 1 cap(s), Oral, q12hr, # 6 cap(s), Refills(s) 0, Pharmacy: [facility], 168, cm, 12/05/21 10:16:00 EDT, Height/Length [...] 10:02am Start: 09-05-2020 take 1 capsule by [facility] once daily Omeprazole 40 MG [...] - 2 Days PERFORMED BY: [facility] [place], [place] [id number] PATHOLOGIST FINE CHEMICALS OPERATOR ZAIDA Sumner [facility] Comment on above: Performed By: #### C UU #### [facility] [address] [id number] [facility] Urine cultureOrdered By: Yesenia Mcwilliams on 07-08-2024 Bacteria identified Cx Nom (U) Urine culture [facility] Activated partial thrombopla stin time (aPTT) in platelet poor plasma by coagulation aon 05-01-2024 aPTT Coag (PPP) [Time] 30.5 s 22.3-36.2 [facility] Coag (PPP) [Time] Activated partial thromboplastin time (aPTT) in platelet poor plasma by coagulation a 22.3-36.2 [facility] Basophils Auto (Bld) [#/Vol] on 05-01-2024 Basophils (Bld) [#/Vol] 0.0 10 3/uL 0.0-0.1 [facility] Basophils (Bld) [#/Vol] Automated basoph il count 0.0-0.1 [facility] Basophils/100 WBC Auto (Bld) on 05-01-2024 Basophils/100 WBC (Bld) 0.7 % 0.2-2.0 F [facility] Basophils/100 WBC (Bld) Automated basophil % 0. 2-2.0 [facility] Eosinophils/100 WBC Auto (Bl d)on 05-01-2024 Eosinophils/100 WBC (Bld) 3.8 % 0.9-7.0 [facility] Eosinophils/100 WBC (Bld) Automated eosinophil % 0.9-7.0 [facility] Erythrocyte distribution wid th Auto (RBC) [Ratio]on 05-01-2024 Erythrocyte distribution width (RBC) [Ratio] 14.4 % 11.0-15.0 [facility] Erythrocyte distribution width (RBC) [Ratio] Erythrocyte distribution width [Ratio] by Automated count 11.0-15.0 [facility] Estimated glomerular filtrat ion rate (GFR) non- Americanon 05-01-2024 GFR/1.73 sq M.predicted among non-blacks MDRD (S/P/Bld) [Vol rate/Area] 51 mL/min/{1.73_m2} Low >=60 mL/min/1.73m 2 [facility] GFR/1.73 sq M.predicted among non-blacks MDRD (S/P/Bld) [Vol rate/Area] Estimated glomerular filtration rate (GFR) non- Low >=60 mL/min/1.73m 2 [facility] Globulin Calc (S) [Mass/Vol] on 05-01-2024 Globulin (S) [Mass/Vol] 4.3 g/dL [facility] Globulin (S) [Mass/Vol] Serum globulin measurement by calculation (mass/volume) [facility] Hematocrit Auto (Bld) [Volum e fraction]on 05-01-2024 Hematocrit (Bld) [Volume fraction] 39.1 % 36.0-48.0 [facility] Hematocrit (Bld) [Volume fraction] Hematocrit [Volume Fraction] of Blood by Automated count 36.0-48.0 [facility] Hemoglobin [Mass/volume] in Bloodon 05-01-2024 Hemoglobin (Bld) [Mass/Vol] 13.1 g/dL 12.0-16.0 [facility] Hemoglobin (Bld) [Mass/Vol] Hemoglobin [Mass/volume] in Blood 12.0-16.0 [facility] INR in Platelet poor plasma by Coagulation assayon 05-01-2024 INR Coag (PPP) [Relative time] 1.07 {INR} [facility] Comment on above: DESIRED INR:2.0-3.0 CONDITIONS NOT LISTED BELOW2.5-3.5 FOR PROSTHETIC HEART VALVE REPLACEMENT2.5-3.5 RECURRENT THROMBOSIS INR Coag (PPP) [Relative time] INR in Platelet poor plasma by Coagulation assay [facility] Comment on above: DESIRED INR:2.0-3.0 CONDITIONS NOT LISTED BELOW2.5-3.5 FOR PROSTHETIC HEART VALVE REPLACEMENT2.5-3.5 RECURRENT THROMBOSIS Laboratory - Chemistry and C hemistry - challengeon 05-01-2024 Bilirubin Ql (U) Negative NEGATIVE [facility] Glucose (U) [Mass/Vol] Negative NEGATIVE [facility] Ketones Ql (U) Negative NEGATIVE [facility] pH (U) 6.0 [pH] 5.0-9.0 [facility] Specific gravity (U) [Rel density] 1.020 1.005-1.025 [facility] Urobilinogen Qn (U) 0.2 {Diana'U}/dL 0.2-1.0 [facility] Albumin [Mass/Vol] 2.9 g/dL Low 3.4-5.0 [facility] ALP [Catalytic activity/Vol] 196 U/L High 46-116 [facility] ALT [Catalytic activity/Vol] 44 U/L 14-59 [facility] AST [Catalytic activity/Vol] 51 U/L High 15-37 [facility] Bilirubin [Mass/Vol] 0.7 mg/dL 0.2-1.0 [facility] Bilirubin.direct [Mass/Vol] 0.2 mg/dL 0.0-0.2 [facility] Calcium [Mass/Vol] 9.1 mg/dL 8.5-10.1 [facility] Chloride [Moles/Vol] 107 mmol/L 98-107 [facility] CO2 [Moles/Vol] 25.8 mmol/L 21.0-32.0 [facility] Creatinine [Mass/Vol] 1.05 mg/dL High 0.55-1.02 [facility] GFR/1.73 sq M.predicted MDRD (S/P/Bld) [Vol rate/Area] mL/min/{1.73_m2} >=60 mL/min/1.73m 2 [facility] Glucose [Mass/Vol] 84 mg/dL 74-106 [facility] Potassium [Moles/Vol] 3.7 mmol/L 3.5-5.1 [facility] Protein [Mass/Vol] 7.2 g/dL 6.4-8.2 [facility] Sodium [Moles/Vol] 143 mmol/L 136-145 [facility] Urea nitrogen [Mass/Vol] 20.0 mg/dL High 7.0-18.0 [facility] Urea nitrogen/Creatinine [Mass ratio] 19.0 mg/mg [facility] Laboratory - Hematology and Cell countson 05-01-2024 Immature granulocytes/100 WBC (Bld) 0.2 % 0.0-0.5 [facility] Laboratory - Specimen inform ationon 05-01-2024 Appearance (U) CLEAR CLEAR [facility] Color (U) YELLOW YELLOW [facility] Laboratory - Urinalysison Leukocyte esterase Test strip Ql (U) Negative NEGATIVE [facility] Nitrite Ql (U) Negative NEGATIVE [facility] Protein Ql (U) Negative NEG/TRACE [facility] Leukocytes [#/volume] correc reji for nucleated erythrocytes in Blood by Automated counon 05-01-2024 WBC corrected for nucl RBC Auto (Bld) [#/Vol] 4.5 10 3/uL 4.0-11.0 [facility] WBC corrected for nucl RBC Auto (Bld) [#/Vol] Leukocytes [#/volume] corrected for nucleated erythrocytes in Blood by Automated coun 4.0-11.0 [facility] Lymphocytes Auto (Bld) [#/Vo l]on 05-01-2024 Lymphocytes (Bld) [#/Vol] 2.0 10 3/uL 1.2-3.8 [facility] Lymphocytes (Bld) [#/Vol] Lymphocytes [#/volume] in Blood by Automated count 1.2-3.8 [facility] Lymphocytes/100 WBC Auto (Bl d)on 05-01-2024 Lymphocytes/100 WBC (Bld) 43.8 % 20.5-60.0 [facility] Lymphocytes/100 WBC (Bld) Lymphocytes/100 leukocytes in Blood by Automated count 20.5-60.0 [facility] MCH Auto (RBC) [Entitic mass ]on 05-01-2024 MCH (RBC) [Entitic mass] 34.5 pg High 26.7-34.0 [facility] MCH (RBC) [Entitic mass] MCH [Entitic mass] by Automated count High 26.7-34.0 [facility] MCHC Auto (RBC) [Mass/Vol]on 05-01-2024 MCHC (RBC) [Mass/Vol] 33.5 g/dL 29.9-35.2 [facility] MCHC (RBC) [Mass/Vol] MCHC [Mass/volume] by Automated count 29.9-35.2 [facility] MCV Auto (RBC) [Entitic vol] on 05-01-2024 MCV (RBC) [Entitic vol] 102.9 fL High 81.0-99.0 F [facility] MCV (RBC) [Entitic vol] MCV [Entitic vol ume] by Automated count High 81.0-99.0 [facility] Monocytes Auto (Bld) [#/Vol] on 05-01-2024 Monocytes (Bld) [#/Vol] 0.6 10 3/uL 0.3-0.8 [facility] Monocytes (Bld) [#/Vol] Automated blood monocyte count 0.3-0.8 [facility] Monocytes/100 WBC Auto (Bld) on 05-01-2024 Monocytes/100 WBC (Bld) 13.8 % High 1.7-12.0 F [facility] Monocytes/100 WBC (Bld) Automated monocyte % High 1. 7-12.0 [facility] Neutrophils Auto (Bld) [#/Vo l]on 05-01-2024 Neutrophils (Bld) [#/Vol] 1.7 10 3/uL 1.4-6.5 [facility] Neutrophils (Bld) [#/Vol] Neutrophils [#/volume] in Blood by Automated count 1.4-6.5 [facility] Neutrophils/100 WBC Auto (Bl d)on 05-01-2024 Neutrophils/100 WBC (Bld) 37.7 % Low 43.0-75.0 [facility] Neutrophils/100 WBC (Bld) Automated neutrophil % Low 43.0-75.0 [facility] No Panel Informationon 05-01 Urine Microscopic Review NO [facility] Urine Occult Blood Negative NEGATIVE [facility] Eosinophils # (Auto) 0.2 10 3/uL 0.0-0.7 [facility] Immature Granulocyte # (Auto) 0.01 10 3/uL 0.00-0.03 [facility] No Panel InformationOrdered By: Johny Perdomo on 05-01-2024 MRSA Screening Culture [facility] Platelet mean volume Auto (B ld) [Entitic vol]on 05-01-2024 Platelet mean volume (Bld) [Entitic vol] 12.6 fL 9.5-13.5 [facility] Platelet mean volume (Bld) [Entitic vol] Platelet mean volume [Entitic volume] in Blood by Automated count 9.5-13.5 [facility] Platelets Auto (Bld) [#/Vol] on 05-01-2024 Platelets (Bld) [#/Vol] 266 10 3/uL 150-450 [facility] Platelets (Bld) [#/Vol] Platelets [#/vol ume] in Blood by Automated count 150-450 [facility] Prothrombin time (PT)on 04-14 PT Coag (PPP) [Time] 11.3 s 9.0-11.6 [facility] PT Coag (PPP) [Time] Prothrombin time (PT) 9.0- 11.6 [facility] RBC Auto (Bld) [#/Vol]on RBC (Bld) [#/Vol] 3.80 10 6/uL Low 4.20-5.40 [facility] RBC (Bld) [#/Vol] Erythrocytes [#/volume] in Blood by Automated count Low 4.20-5.40 [facility] Serum or plasma albumin/glob ulin mass ratioon 05-01-2024 Albumin/Globulin [Mass ratio] 0.7 {ratio} [facility] Albumin/Globulin [Mass ratio] Serum or plasma albumin/globulin mass ratio [facility] Serum or plasma anion gap de terminationon 05-01-2024 Anion gap [Moles/Vol] 13.9 mmol/L Fi [facility] Anion gap [Moles/Vol] Serum or plasma an ion gap determination [facility] C Urineon 01-19-2024 Bacteria identified [...] Locations R1: This test was performed at: [facility], [address] [place] [address], [id number] , [place], Normal [facility] Comment on above: Performed By: #### [id number] #### [facility] [address] [place] [id number] Ambulatory Visit Summaryon 0 01-15-2024 Ambulatory Visit [...] Arteaga, KEKE, URO When: Where: [address] [place] [address] [phone] Medications What How Much When Instructions Unchanged estradiol topical (Estrace 0.1 mg/ g Cream) See instructions Apply pea-sized amound around the opening of the urethra 3 times per week for 1 month then 2 times per week after for maintenance. Pickup at [facility] Unchanged biotin (biotin 5000 mcg oral capsule) Contact prescribing physician if questions or concerns Unchanged cholecalciferol (Vitamin D3 5000 intl units oral capsule) 1 Capsules By Mouth Every day with food Contact prescribing physician if questions or concerns Unchanged fexofenadine (Mary) By Mouth Contact prescribing physician if questions or concerns Pharmacy Information [facility]: [address] [place] [id number] [phone] Allergies codeine (nausea) Problems Ongoing - Any [...] intended to (more content not included)... Normal [facility] Urology Office/Clinic Noteon 01-15-2024 Urology [...] Information Gage JACOB, Katie Arteaga, URL, URO [address], [place] [phone] Additional Instructions: pt's choice on when to [...] Hyperparathyroidism Osteopeni (more content not included)... Normal [facility] Comment on above: Result Comment: Elec tronically Signed By: Katie Almonte MD\.br\Date and Time Signed: 01/15/24 23:28 EDT\.br\Electronically Co-Signed By: Yuliana Olson\.br\Date and Time Co-Signed: 01/15/24 11:27 EDT [place] 02-21-2023 Screens [id number] Normal [facility] Patient Educationon 02-21-20 Patient Education [...] these instructions at home: Medicines ? Take [id number] and prescription medicines only as told by [...] provider. Document Revised: 02/10/2021 Document Reviewed: 02/10/2021 [employer] Patient Education ? 2022 [employer] Normal [facility] Urology Office/Clinic Noteon 02-20-2023 Urology [...] medical exam (more content not included)... Normal [facility] Comment on above: Result Comment: Elec tronically Signed By: Katie Almonte MD\.br\Date and Time Signed: 02/20/23 12:03 EDT\.br\Electronically Co-Signed By: Sepiedh Perez\.br\Date and Time Co-Signed: 02/20/23 11:49 EDT Covid-19 PCR (CVDTB)on 07-15 SARS-CoV-2 (COVID-19) RNA AZUL+probe Ql (Unsp spec) Not detected Normal NOT DETECTED [facility] Comment on above: Result Comment: This test is not yet approved or cleared by the [place] FDA. When there are no FDA-approved or cleared tests available, and other criteria are met, FDA can make tests available under an emergency access mechanism called an Emergency Use Authorization (EUA). The EUA for this test is supported by the [employer] Coordinator of Health and Human Service's (HHS's) declaration [...] SARS-CoV-2. Performed By: #### C VDTBH #### [facility] [address] [place] [address] Dr. Manjula Arzate CREATININEon 06-13-2022 Creatinine [Mass/Vol] 0.98 mg/dL Normal 0.55-1.02 [facility] Comment on above: Performed By: #### C JESUS #### [facility] [address] [address] [address] Manjula Arzate EGFR-AF TRINIDADIAN >60 Normal >=60 [facility] Comment on above: Performed By: #### C JESUS #### [facility] [address] [place], [place] [address] Dr. Manjula Arzate EGFR-NON AF TRINIDADIAN 55 mL/min/1.73m2 Critically low >=60 [facility] Comment on above: Performed By: #### C JESUS #### [facility] [address] ABD/PELV W CONon [...] DARIO BESS Date: 2022-06-13 17:[address] [facility] CT ABD/PELVIS WO CONon 11-27 CT [...] DARIO BESS Date: 2021-11-27 10:[address] [facility] Vital Signs Date Time Vital Sign Value Performing Clinician Facility 07-16-2024 08:56-0500 Body height 165.1 cm Maryan Mcwilliams MD Work Phone: [facility] 07-16-2024 08:56-0500 Body mass index (BMI) [Ratio] 34.4 kg/m2 Maryan Mcwilliams MD Work Phone: [facility] 07-16-2024 08:56-0500 Body weight 93.89 kg Maryan Mcwilliams MD Work Phone: [facility] 07-16-2024 08:56-0500 Diastolic blood pressure 66 mm[Hg] Maryan Mcwilliams MD Work Phone: [facility] 07-16-2024 08:56-0500 Heart rate 83 /min Maryan Mcwilliams MD Work Phone: [facility] 07-16-2024 08:56-0500 Systolic blood pressure 112 mm[Hg] Maryan Mcwilliams MD Work Phone: [facility] 06-10-2024 15:24-0500 Body height 167.6 cm Zaida Child MD Work Phone: [facility] 06-10-2024 15:24-0500 Body mass index (BMI) [Ratio] 32.28 kg/m2 Zaida Child MD Work Phone: [facility] 06-10-2024 15:24-0500 Body weight 90.72 kg Zaida Child MD Work Phone: [facility] 06-10-2024 15:24-0500 Diastolic blood pressure 84 mm[Hg] Zaida Child MD Work Phone: [facility] 06-10-2024 15:24-0500 Systolic blood pressure 132 mm[Hg] Zaida Child MD Work Phone: [facility] 05-28-2024 11:08-0500 Body height 167.6 cm Zaida Child MD Work Phone: [facility] 05-28-2024 11:08-0500 Body mass index (BMI) [Ratio] 33.09 kg/m2 Zaida Child MD Work Phone: [facility] 05-28-2024 11:08-0500 Body temperature 97.39 [degF] Zaida Child MD Work Phone: [facility] 05-28-2024 11:08-0500 Body weight 92.99 kg Zaida Child MD Work Phone: [facility] 05-28-2024 11:08-0500 Diastolic blood pressure 84 mm[Hg] Zaida Child MD Work Phone: [facility] 05-28-2024 11:08-0500 Heart rate 72 /min Zaida Child MD Work Phone: [facility] 05-28-2024 11:08-0500 SaO2% (BldA) [Mass fraction] 97 % Zaida Child MD Work Phone: [facility] 05-28-2024 11:08-0500 Systolic blood pressure 146 mm[Hg] Zaida Child MD Work Phone: [facility] 05-19-2024 11:18-0500 Body height 165.1 cm [facility] 05-19-2024 11:18-0500 Body mass index (BMI) [Ratio] 33.1 kg/m2 [facility] 05-19-2024 11:18-0500 Body weight 90.26 kg [facility] 05-19-2024 11:18-0500 Diastolic blood pressure 76 mm[Hg] [facility] 05-19-2024 11:18-0500 Heart rate 91 /min [facility] 05-19-2024 11:18-0500 Systolic blood pressure 114 mm[Hg] [facility] 05-07-2024 14:39-0400 Body height 165.1 cm [facility] 05-07-2024 14:39-0400 Body mass index (BMI) [Ratio] 33.7 kg/m2 [facility] 05-07-2024 14:39-0400 Body weight 92.07 kg [facility] 05-07-2024 14:39-0400 Diastolic blood pressure 79 mm[Hg] [facility] 05-07-2024 14:39-0400 Heart rate 76 /min [facility] 05-07-2024 14:39-0400 Systolic blood pressure 116 mm[Hg] [facility] 04-29-2024 08:21-0400 Body height 165.1 cm [facility] 04-29-2024 08:21-0400 Body mass index (BMI) [Ratio] 33.8 kg/m2 [facility] 04-29-2024 08:21-0400 Body weight 92.3 kg [facility] 04-29-2024 08:21-0400 Diastolic blood pressure 82 mm[Hg] [facility] 04-29-2024 08:21-0400 Heart rate 74 /min [facility] 04-29-2024 08:21-0400 Respiratory rate 16 /min [facility] 04-29-2024 08:21-0400 SaO2% (BldA) [Mass fraction] 96 % [facility] 04-29-2024 08:21-0400 Systolic blood pressure 120 mm[Hg] [facility] 01-24-2024 10:54-0400 Body height 165.1 cm [facility] 01-24-2024 10:54-0400 Body mass index (BMI) [Ratio] 35.6 kg/m2 [facility] 01-24-2024 10:54-0400 Body weight 97.06 kg [facility] 01-24-2024 10:54-0400 Diastolic blood pressure 81 mm[Hg] [facility] 01-24-2024 10:54-0400 Heart rate 71 /min [facility] 01-24-2024 10:54-0400 Systolic blood pressure 121 mm[Hg] [facility] 01-15-2024 10:37-0400 Blood Pressure Location Katie Lue [facility] 01-15-2024 10:37-0400 Body temperature 97.88 [degF] Katie Lue [facility] 01-15-2024 10:37-0400 Diastolic blood pressure 78 mm[Hg] Katie Lue [facility] 01-15-2024 10:37-0400 Heart rate 71 /min Katie Lue [facility] 01-15-2024 10:37-0400 Systolic blood pressure 132 mm[Hg] Katie Lue [facility] 02-20-2023 10:53-0400 Blood Pressure Location Katie Lue [facility] 02-20-2023 10:53-0400 Diastolic blood pressure 76 mm[Hg] Katie Lue [facility] 02-20-2023 10:53-0400 Heart rate 68 /min Katie Lue [facility] 02-20-2023 10:53-0400 Respiratory rate 16 /min Katie Lue [facility] 02-20-2023 10:53-0400 Systolic blood pressure 130 mm[Hg] Katie Lue [facility] 08-22-2022 11:50-0500 Blood Pressure Location Katie Lue [facility] 08-22-2022 11:50-0500 Diastolic blood pressure 78 mm[Hg] Katie Lue [facility] 08-22-2022 11:50-0500 Heart rate 68 /min Katie Lue [facility] 08-22-2022 11:50-0500 Respiratory rate 16 /min Katie Lue [facility] 08-22-2022 11:50-0500 Systolic blood pressure 132 mm[Hg] Katie Almonte [facility] 12-05-2021 10:33-0400 Diastolic blood pressure 81 mm[Hg] Mally Key Jr. [facility] 12-05-2021 10:33-0400 Mean blood pressure 101 mm[Hg] Mally Key Jr. [facility] 12-05-2021 10:33-0400 Systolic blood pressure 142 mm[Hg] Mally Key Jr. [facility] 12-05-2021 10:12-0400 Blood Pressure Location Mally Key Jr. [facility] 12-05-2021 10:12-0400 Diastolic blood pressure 97 mm[Hg] Mally Key Jr. [facility] 12-05-2021 10:12-0400 Heart rate 87 /min Mally Key Jr. [facility] 12-05-2021 10:12-0400 Respiratory rate 16 /min Mally Key Jr. [facility] 12-05-2021 10:12-0400 Systolic blood pressure 163 mm[Hg] Mally Key Jr. [facility] Encounters Encounter Date Encounter Type Care Provider Facility Start: 07-16-2024 End: 07-16-2024 ambulatory Maryan Mcwilliams MD Work Phone: [facility] Work Phone: Start: 07-16-2024 End: 07-16-2024 Patient encounter procedure Maryan Mcwilliams MD Work Phone: [facility] Work Phone: Start: 07-09-2024 Non-patient / Non-visit Maryan Mcwilliams MD Work Phone: [facility] Work Phone: Start: 07-08-2024 End: 07-08-2024 ambulatory Maryan Mcwilliams Facility:[facility] Start: 07-08-2024 End: 07-08-2024 Departed Referred Maryan Mcwilliams MD Work Phone: [facility] Start: 06-10-2024 End: 06-10-2024 Office outpatient visit 15 minutes Zaida Child MD Work Phone: [facility] Comment on above: Superficial phlebiti s and thrombophlebitis of right lower extremity (Primary Dx); Varicose veins of bilateral lower extremities with pain Start: 06-10-2024 End: 06-10-2024 ambulatory ZAIDA CHILD [facility] Start: 06-03-2024 End: 06-04-2024 Orders Only [...] with pain Start: 05-19-2024 End: 05-19-2024 ambulatory [facility] Work Phone: Start: 05-19-2024 End: 05-19-2024 Patient encounter procedure [facility] Work Phone: Start: 05-07-2024 Non-patient / Non-visit [facility] Work Phone: Start: 05-07-2024 End: 05-07-2024 ambulatory [facility] Work Phone: Start: 05-07-2024 End: 05-07-2024 Patient encounter procedure [facility] Work Phone: Start: 2024 Non-patient / Non-visit [facility] Work Phone: Start: 05-03-2024 Non-patient / Non-visit Maryan Mcwilliams MD Work Phone: [facility] Work Phone: Start: 05-01-2024 Patient encounter status [facility] Start: 05-01-2024 Non-patient / Non-visit [facility] [place] Work Phone: Start: 04-29-2024 End: 04-29-2024 ambulatory [facility] Work Phone: Start: 04-29-2024 End: 04-29-2024 Encounter for other preprocedural examination Maryan Mcwilliams MD Work Phone: [facility] Start: 04-29-2024 End: 04-29-2024 Patient encounter procedure [facility] Work Phone: Start: 04-10-2024 End: 04-10-2024 ambulatory Johny Perdomo DO Facility:[facility] Start: 03-20-2024 ambulatory Johny willis DO Facility:[facility] Start: 02-05-2024 Patient encounter procedure [facility] Start: 01-24-2024 End: 01-24-2024 ambulatory [facility] Work Phone: Start: 01-24-2024 End: 01-24-2024 Patient encounter procedure [facility] Work Phone: Start: 01-15-2024 End: 01-15-2024 ambulatory Katie M. Lue [place] Start: 01-15-2024 End: 01-15-2024 Lab Drop off Katie M. Lue [facility] Start: 01-15-2024 End: 01-15-2024 ambulatory Katie M. Lue Facility:[facility] Start: 01-15-2024 End: 01-15-2024 Patient encounter procedure Katie M. Lue [facility] Start: 08-01-2023 End: 08-01-2023 ambulatory Hafsa Knowles Other Effective Measure Other Start: 08-01-2023 Telephone encounter Hafsa Knowles [facility] Start: 07-30-2023 End: 07-30-2023 ambulatory Hafsa Knowles Other Effective [employer] Other Start: 07-30-2023 Telephone encounter Hafsa Knowles [facility] Start: 02-20-2023 End: 02-20-2023 ambulatory Katie M. Lue Facility:[facility] [place] Start: 02-20-2023 End: 02-20-2023 Patient encounter procedure Katie M. Lue [facility] Start: 08-22-2022 End: 08-22-2022 Patient encounter procedure Katie M. Lue [facility] Start: 08-01-2022 End: 08-01-[address] ANTWON BAKER Facility:[facility] Start: 07-30-2022 End: 07-31-[address] ANTWON BAKER Facility:[facility] Start: 07-12-2022 Adult health examination Vanessa Knowles Other [place] [employer] Other Start: 06-13-2022 End: 06-14-[address] HAFSA KNOWLES Facility:[facility] Start: 12-05-2021 End: 12-05-2021 Patient encounter procedure Mally Key Jr. [facility] Start: 11-27-2021 End: 11-28-[address] MALLY [...] Author Start: 06-10-2025 Tobacco Screening Tobacco Screening [facility] Start: 05-28-2025 Tobacco Screening Tobacco Screening [facility] Start: 06-25-2024 End: 06-25-2024 Patient encounter procedure 06/25/2024 9:20 AM EST Office Visit [facility] [address] [place] [phone] Zaida Child MD [address], [address] [address] [facility] Start: 06-18-2024 End: 06-18-2024 Patient encounter procedure 06/18/2024 10:20 AM EST Office Visit [facility] [address] [place] [phone] Zaida Child MD [address], [address] [address] [facility] Start: 05-19-2024 Patient referral [facility] Work Phone: Start: 03-15-2024 COVID-19 Vaccine ( season) COVID-19 Vaccine ( season) [facility] Start: 07-20-2023 Tobacco Screening Tobacco Screening [facility] Start: 2012 Fall Risk Screening Fall Risk Screen ing [facility] Start: 1966 DTaP,Tdap and Td Vaccines (1 - Tdap) DTaP,Tdap and Td Vaccines (1 - Tdap) [facility] Start: 1959 [facility].axial Views for bone density [facility] MG Breast - bilatera l Screening [facility] Patient referral [facility] Work Phone: US Lower extremity v ein - right [facility] XR Tibia and Fibula - right 2 Views [facility] Immunizations Immunization Date Immunization Notes Care Provider Fa cility 04-10-2022 SARS-CoV-2 (COVID-19 ) [id number] Katie Lue [facility] 04-11-2021 SARS-CoV-2 (COVID-19 ) mRNA BNT-162b2 vax Katie Lue [facility] 02-15-2021 zoster vaccine recombinant Katie Lue [facility] 11-30-2020 zoster vaccine recombinant Katie Lue [facility] 08-30-2020 SARS-CoV-2 (COVID-19 ) mRNA BNT-162b2 vax Katie Lue [facility] Comment on above: Result Comment: 2022: [id number] 08-09-2020 SARS-CoV-2 (COVID-19 ) mRNA BNT-162b2 vax Katie Lue [facility] Comment on above: Result Comment: 2022: [id number] 05-16-2020 influenza virus vaccine, split virus (incl. purified surface antigen) Hafsa Knowles Other Effective Measure Other 05-16-2020 influenza virus vaccine, unspecified formulation [facility] 04-26-2020 influenza virus vaccine, unspecified formulation Katie Lue [facility] 12-16-2018 pneumococcal polysaccharide vaccine, 23 valent Hafsa Knowles Other [facility] 11-07-2017 pneumococcal conjuga te vaccine, 13 valent Mally Key Jr. [facility] 11-07-2017 pneumococcal Conjuga te, unspecified formulation; Translations: [Need for prophylactic vaccination against Streptococcus pneumoniae (pneumococcus)] Hafsa Knowles Other Effective Measure Other 10-13-2017 pneumococcal polysaccharide vaccine, 23 valent Katie Gage [facility] 04-14-2017 influenza virus vaccine, unspecified formulation Katie Almonte [facility] Payers Date Payer Category Payer Self-pay 2020 Commercial Indemnity [facility] [id number] 2012 Medicare 2012 Unknown 1959 Medicare [id number] 1959 Unknown [id number] 1947 Unknown [id number] 93 1947 Unknown [id number] 93 1947 Unknown [id number] 93 1947 Unknown [id number] 93 1947 Unknown [id number] 27 1947 Unknown [id number] 27 1947 Unknown [id number] 27 1947 Unknown [id number] 96 1947 Unknown [id number] 286 Medicare Medicare [id number] Unknown [id number] 31 Social History Date Type Detail Facility Start: 12-05-2021 End: 07-23-2023 Tobacco smoking status Never smoked tobacco (finding) [facility] Start: 05-28-2024 End: 06-10-2024 Sex Assigned At Female [facility] Tobacco smoking status Never [facility] Start: 1945 Sex Assigned At Female [facility] Start: 07-18-2022 Tobacco use and exposure Smokeless tobacco non-user [facility] Start: 05-28-2024 End: 06-10-2024 Alcoholic beverage intake Lifetime non-drinker (finding) [facility] Start: 05-28-2024 End: 06-10-2024 History of Social function [facility] Start: 07-18-2022 Alcohol Comment rare [facility] Start: 1945 Sex assigned at Not on file P Alfonso [facility] Start: 05-31-2021 End: 07-16-2024 Sex Female (finding) [facility] Functional Status Date Assessment Result Facility 01-15-2024 Functional Status N/A [facility] 02-20-2023 Functional Status N/A [facility] 08-22-2022 Functional Status N/A [facility] Clinical Notes 12-05-2021 to 06-10-2024 Assessment & Plan Note - Zaida Child MD - 06/10/2024 5:32 PM ESTAssessment & Plan Note - Zaida Child MD - 06/10/2024 5:32 PM ESTMoalsie Chlid MD - 06/10/2024 3:30 PM EST Note Date & Type Note Facility 06-10-2024 Evaluation + Plan note Associated Problem(s): Varicose veins of bilateral lower extremities with pain Venous reflux ultrasound compression stockings leg elevation and exercise. [facility] 06-10-2024 Evaluation + Plan note Associated Problem(s): Superficial phlebitis and thrombophlebitis of right lower extremity Warm compresses nonsteroidal anti-inflammatory drugs leg elevation and compression therapy. We will get venous reflux ultrasound and rule out DVT as well. [facility] 06-10-2024 Miscellaneous Notes Associated Problem(s): Varicose veins of bilateral lower extremities with pain Venous reflux ultrasound compression stockings leg elevation and exercise. Associated Problem(s): Superficial phlebitis and thrombophlebitis of right lower extremity Warm compresses nonsteroidal anti-inflammatory drugs leg elevation and compression therapy. We will get venous reflux ultrasound and rule out DVT as well. [facility] History of Presen t illness Narrative [...] given by office. Patient was given a [employer] coupon voucher to use, this is not [...] 06/14/2021 Performed by Vic Hitchcock DO at [facility] BREAST SURGERY bx, marker in place [...] Zaida Child MD, TRIPP, RPVI, FSVS, FACS [facility] This note was created with the assistance of a speech recognition program. While intending to generate a timely document that accurately reflects the content of the visit, no guarantee can be provided that every grammatical or spelling mistake has been or will be identified or corrected. Thank you for your understanding. documented in this encounter [facility] 05-28-2024 Evaluation + Plan note Associated Problem(s): Varicose veins of bilateral lower extremities with pain Compression stockings leg elevation exercise. Venous reflux ultrasound. [facility] 05-28-2024 Miscellaneous Notes Associated Problem(s): Varicose veins of bilateral lower extremities with pain Compression stockings leg elevation exercise. Venous reflux ultrasound. Associated Problem(s): Superficial phlebitis and thrombophlebitis of right lower extremity Nonsteroidal anti-inflammatory drugs warm compresses leg elevation and compression therapy when possible documented in this encounter [facility] 05-28-2024 Evaluation + Plan note Associated Problem(s): Superficial phlebitis and thrombophlebitis of right lower extremity Nonsteroidal anti-inflammatory drugs warm compresses leg elevation and compression therapy when possible [facility] 05-28-2024 History of Presen t illness Narrative [...] 06/14/2021 Performed by Vic Hitchcock DO at [facility] BREAST SURGERY bx, marker in place [...] pain - [facility] [place] [place] Phlebitis and thrombophlebitis of unspecified site - [facility] [place] [place] Varicose veins of bilateral lower extremities with [...] for your understanding. documented in this encounter [facility] 04-29-2024 Evaluation note Diagnosis Onset Date Resolution Preoperative examination acute April 29 11:24am Right leg pain acute May 072023 2:12pm Phlebitis acute May 19, 2024 11:09am Right leg pain acute May 192023 11:09am Hydronephrosis, right acute Enrico uary 2024 8:54am Kidney stone acute July 16, 2024 8:54am [facility] Work Phone: [phone]) 475-606209-27-2024 NoteProcedure: MRI of the right knee without [...] Is Signed, Electronically Signed in Other Vendor System)[facility]09-27-2024 NoteProcedure: MRI of the right knee [...] Is Signed, Electronically Signed in Other Vendor System)[facility]07-03-2024 Evaluation + Plan note Diagnostic Tests Pending * Urine Culture 01/15/24 [facility]07-03-2024 Hospital Discharge instructions Patient Education 01/15/2024 11:24:08 [...] provider. Document Revised: 11/09/2021 Document Reviewed: 11/09/2021 [employer] Patient Education 2022 [employer]. Follow Up Care 02/20/2023 12:02:25 With:Gage JACOB, HARSH CarreraL, URO Address: [address], [place] [phone] When: Unknown [facility] [place] 07-03-2024 NotePatient Education Obstetrics and Gynecology Kegel [...] provider. Document Revised: 11/09/2021 Document Reviewed: 11/09/2021 Covocative Patient Education ? 2022 [employer].[facility] 07-30-2023 Evaluation note* Encounter Date Diagnosis Assessment Notes Treatment Notes Treatment Clinical Notes Jul, Acute non-recurrent maxillary sinusitis (ICD-10 - J01.00) Effective Measure Other 08-09-2023 Hospital Discharge instructions Patient Education 02/20/2023 09:58:29 Urinary Tract Infection, Adult, [id number] Urinary Tract Infection, Adult A urinary tract [...] Follow these instructions at home: Medicines Take bhno-cde-gginawl and prescription medicines only as told by [...] provider. Document Revised: 02/10/2021 Document Reviewed: 02/10/2021 Cov[employer]ative Patient Education 2022 [employer]. Follow Up Care 08/22/2022 12:56:32 With:Gage JACOB, KEKE Carrera, URO Address: When:Within 1 Year(s) [facility] 02-08-2023 Hospital Discharge instructions Patient Education 08/22/2022 [...] 06/17/2013 Document Revised: 02/18/2019 Document Reviewed: 02/18/2019 Covocative Patient Education 2020 [employer]. Follow Up Care 06/13/2022 11:42:12 With:Gage JACOB, KEKE Carrera, URO Address: When: Unknown [facility] 05-24-2022 Hospital Discharge instructions Patient Education 12/05/2021 [...] provider gives to you. In general: Take ezop-phv-pkoxxbr and prescription medicines only as told by [...] 01/26/2015 Document Revised: 08/07/2018 Document Reviewed: 08/07/2018 Covocative Patient Education 2019 [employer]. Follow Up Care 06/07/2021 13:20:37 With:Shahid Ontiveros MD, Mally Mendiola, URO Address: [facility] [address], [place] [address]- When: Unknown [facility] evaluation + Plan note No data available for this section [facility] evaluation + Plan note Future Appointments Appointment Date:02/20/2023 10:45:00 AM Scheduled Provider:Katie Almonte MD Location:[facility] Appointment Type:URO Office Visit [facility] evaluation + Plan note Future Appointments Appointment Date:02/26/2024 10:45:00 AM Scheduled Provider:Katie Almonte MD Location:[facility] Appointment Type:URO Office Visit [facility] evaluation noteNo [facility]Nom[facility] [employer] Other evaluation note* Diagnosis Onset Date Resolution Status Menopausal and postmenopausal disorder acute Screening mammogram for breast cancer acute [facility] Work Phone: Evaluation noteNo assessment information available [facility] Work Phone: Evaluation note* Diagnosis Onset Date Resolution Status Preoperative examination acu te Right leg pain acute [facility] Work Phone: Evaluation note* Diagnosis Onset Date Resolution Status Preoperative examination acu te Right leg pain acute Phlebitis acute Right leg pain acute [facility] Work Phone: Evaluation note* Diagnosis Superficial [...] with pain documented in this encounter [facility] Narrative - Reported* Type [...] ABOVE SURGERY Hospitalization History CHILD X'S 2 Effective Measure Other Hospital Discharge instructions No data available for this section [facility] Discharge instructionsAmbulatory Orders* Referral to Vascular Surgery Time Frame: 05/19/24, Location: None [facility] Work Phone: InstructionsNot on filedocumented in this encounter [facility] on filedocumented in this encounter [facility] System[facility]ructionsNot on filedocumented in this encounter [facility] No data available for this section [facility] Summary Purpose Family History Relationship Condition Age [...] and content) DATE CREATED AUTHOR 08/02/2022 [facility] DATE CREATED AUTHOR AUTHOR'S ORGANIZ ATION 01/16/2024 [facility] DATE CREATED AUTHOR AUTHOR'S ORGANIZ ATION 01/19/2024 [facility] DATE CREATED AUTHOR AUTHOR'S ORGANIZ ATION 04/11/2024 [facility] DATE CREATED AUTHOR AUTHOR'S ORGANIZ ATION 06/13/2024 [facility] DATE CREATED AUTHOR AUTHOR'S ORGANIZ ATION 07/12/2024 [facility] Patient Care team informatio n [...] May 19, 2024 End: May 19, 2024 Associate Doctor 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 Start Date End Date Hafsa Knowles MD [address] [place] [address] PCP - General Family Medicine 06/01/21 Associate Doctor 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 Start Date End Date Hafsa Knowles MD [address] [place] [address] PCP - General Family Medicine 06/01/21 Associate Doctor 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 Start Date End Date Hafsa Knowles MD [address] [place] [address] PCP - General Family Medicine 06/01/21 Team [...] thrombophlebitis of unspecified site Hafsa Knowles MD [address] [place] [address] Phone: tel: fax: [facility] [address] [place] [address] Phone: tel:[phone] fax: Referral ID Status Reason Start Date Expiration Date Visits Requested Visits Authorized [id number] Pending Review Specialty Services Required 05/20/2024 05/20/2025 [...] BE BASED ON THE PRIMARY CLINICAL RECORDS. [employer] provides no warranty or guarantee of the accuracy or completeness of information in this document.
[2024-08-13 11:13] VITALS: PULSE 74; O2SAT 96
== END 2024-08-13 12:12 | disposition home or self-care (01) ==
LOC: VC 10:52
PROVIDERS: PCP Family Medicine; Visit Provider Radiology Diagnostic Radiology
DX: I83.813 Varicose veins of bilateral lower extremities with pain (principal)
CPT/HCPCS: 36466

== ENCOUNTER 2024-08-17 11:19 | Outpatient (OUT) | payer MEDICARE, OTHER, SELFPAY ==
--- NOTE | 2024-08-17 11:21 | VEIN_ITS ---
Patient Name: BHAVESH MONTEIRO MR#: [id number] : 1945 Exam Date: 08/17/2024 Ordering Doctor: DR DARIO SULLIVAN M.D. RADIOLOGY REPORT PROCEDURE: VC EXT VENOUS LT LIMITED COMPARISON: VC EXT VENOUS LT LIMITED, 07/28/2024. INDICATIONS: I80.02 - Phlebitis and thrombophlebitis of superficial veins left leg TECHNIQUE: Lower extremity rucker scale and Duplex Doppler evaluation of the deep venous system from the inguinal ligament through the calf veins. FINDINGS: REGION: Left lower extremity. THROMBI: Negative for DVT. Chemically induced thrombus in multiple varicose veins. COMPRESSIBILITY: Non-compressible segments corresponding to thrombus FLOW: Areas of no flow corresponding to thrombus OTHER: Patent varicose vein proximal lateral lower leg measures 4.8 mm. CONCLUSION: 1. Successful post ablation occlusion of left leg treated branch saphenous varicosities. Dictated by: Dario Sullivan M.D. on 08/17/2024 at 16:10 Approved by: Dario Sullivan M.D. on 08/17/2024 at 16:10
--- NOTE | 2024-08-17 11:21 | VEIN_ITS ---
Patient Name: BHAVESH MONTEIRO MR#: [id number] : 1945 Exam Date: 08/17/2024 Ordering Doctor: DR DARIO BESS M.D. RADIOLOGY REPORT PROCEDURE: [facility] EST [facility] - OFFICE VISIT FOLLOW UP COMPARISON: [facility], 08/10/2024. PROGRESS NOTES: The patient reports improvement in leg symptoms. There has been interval reduction in varicosities. The patient has followed our recommendations to walk 20-30 minutes once or twice per day since the procedure. Physical exam demonstrates decrease in varicosities of the leg. Persistent superficial spider veins are identified along the legs bilaterally. Review of the ultrasound performed the same day demonstrates occlusive thrombus extending throughout the treated vein(s), see separate report, consistent with a successful ablation. No thrombus extending into or beyond the saphenofemoral junction. The patient expressed a desire to proceed with treatment of bilateral lower extremity spider veins and reticular veins. The patient was informed that treatment was a process and would require several procedures/sessions. [facility]: 1. Successful ablation of the remaining incompetent branch saphenous vein(s). 2. Persistent spider veins. PLAN: 1. Bilateral lower extremity sclerotherapy. 2. Patient experienced a fall last night striking her head with possible loss of consciousness and has experienced concussion like symptoms since that time. Patient also has significant bruising over right elbow and right hip. Patient was directed to the emergency department for evaluation. Recommendations were discussed with patient and her and they agreed. Nurse notes, history and physical were reviewed and confirmed, see attached forms. The nurse was present throughout the physical exam and consultation Dictated by: Dario Bess M.D. on 08/17/2024 at 16:11 Approved by: Dario Bess M.D. on 08/17/2024 at 16:13
--- OUTSIDE RECORDS SUMMARY | 2024-08-17 11:23 | XMS_ITS | CCD ---
Author Organization [facility] Care Team Providers Care Doughnut Icer Name Role Phone HAFSA KNOWLES Primary Care Physician [phone] SAMUEL, DR ANTWON Sharma Admitting Unavailparadise BAKER, [...] Allergy 12-26-19 16 Nausea [facility] (1 source) Codeine Drug Allergy [facility] Repository (2 sources) Acetaminophen / HYDROcodone Drug Allergy Unknown [employer] [facility] Other (2 sources) Codeine Drug Allergy Unknown [facility] Other (2 sources) patient allergy list reviewed by nurse or physicia Propensity to adverse reactions 04-29-20 15 Comment:Done [facility] Other (2 sources) Allergies Reconciled Propensity to adverse reactions Unknown [employer] [facility] Other (6 sources) Acetaminophen; Translations: [acetaminophen] Drug Allergy 01-24-20 24 [facility] (6 sources) HYDROcodone; Translations: [hydrocodone] Drug Allergy 01-24-20 24 [facility] (1 source) Codeine Drug Allergy 05-19-20 [facility] Repository Medications Current Medications Medication [...] mouth. Active take 1 capsule by mo [facility] once daily Biotin 5000 5 [...] 2 times per week after for maintenance., [employer] #72, 168, cm, 01/15/24 10:54:00 EDT, Height/Length Dosing, 96, kg, 01/15/24 10:54:00 EDT, Weight Dosing Start Date: 01/15/24 Status: Ordered Start: 08-22-2022 Estrace 0.1 mg /g Cream See Instructions, 42.5 gm, Refill(s) 6, Apply pea-sized amound around the opening of the urethra 3 times per week for 1 month then 2 times per week after for maintenance., [facility], 168, cm, 08/22/22 11:52:00 EST, Height/Length [...] given by office. Patient was given a [employer] coupon voucher to use, this is not to be ran through patients insurance. 24 tablet 07/18/2022 Active Vitamin D-3 1000 UNIT (2 sources) take 1 capsule by [facility] once daily Vitamin D-3 1000 [...] 2:53pm Start: 12-05-2021 take 1 capsule by [facility] every twelve hours Keflex 500 mg Cap 500 mg = 1 cap(s), Oral, q12hr, # 6 cap(s), Refills(s) 0, Pharmacy: [facility], 168, cm, 12/05/21 10:16:00 EDT, Height/Length [...] 10:02am Start: 09-05-2020 take 1 capsule by [facility] once daily Omeprazole 40 MG [...] negative bacilli - 2 Days PERFORMED BY: [facility] [place], [place] [id number] PATHOLOGIST INFANTRYMAN ZAIDA Sumner [facility] Comment on above: Performed By: #### C UU #### [facility] [address] [id number] [facility] Urine cultureOrdered By: Yesenia Mcwilliams on 07-08-2024 Bacteria identified Cx Nom (U) Urine culture [facility] Activated partial thrombopla stin time (aPTT) in platelet poor plasma by coagulation aon 05-01-2024 aPTT Coag (PPP) [Time] 30.5 s 22.3-36.2 [facility] Coag (PPP) [Time] Activated partial thromboplastin time (aPTT) in platelet poor plasma by coagulation a 22.3-36.2 [facility] Basophils Auto (Bld) [#/Vol] on 05-01-2024 Basophils (Bld) [#/Vol] 0.0 10 3/uL 0.0-0.1 [facility] Basophils (Bld) [#/Vol] Automated basoph il count 0.0-0.1 [facility] Basophils/100 WBC Auto (Bld) on 05-01-2024 Basophils/100 WBC (Bld) 0.7 % 0.2-2.[address] [facility] Basophils/100 WBC (Bld) Automated basophil % 0. 2-2.0 [facility] Eosinophils/100 WBC Auto (Bl d)on 05-01-2024 Eosinophils/100 WBC (Bld) 3.8 % 0.9-7.0 [facility] Eosinophils/100 WBC (Bld) Automated eosinophil % 0.9-7.0 [facility] Erythrocyte distribution wid th Auto (RBC) [Ratio]on 05-01-2024 Erythrocyte distribution width (RBC) [Ratio] 14.4 % 11.0-15.0 [facility] Erythrocyte distribution width (RBC) [Ratio] Erythrocyte distribution width [Ratio] by Automated count 11.0-15.0 [facility] Estimated glomerular filtrat ion rate (GFR) non- Americanon 05-01-2024 GFR/1.73 sq M.predicted among non-blacks MDRD (S/P/Bld) [Vol rate/Area] 51 mL/min/{1.73_m2} Low >=60 mL/min/1.73m 2 [facility] GFR/1.73 sq M.predicted among non-blacks MDRD (S/P/Bld) [Vol rate/Area] Estimated glomerular filtration rate (GFR) non- Low >=60 mL/min/1.73m 2 [facility] Globulin Calc (S) [Mass/Vol] on 05-01-2024 Globulin (S) [Mass/Vol] 4.3 g/dL [facility] Globulin (S) [Mass/Vol] Serum globulin measurement by calculation (mass/volume) [facility] Hematocrit Auto (Bld) [Volum e fraction]on 05-01-2024 Hematocrit (Bld) [Volume fraction] 39.1 % 36.0-48.0 [facility] Hematocrit (Bld) [Volume fraction] Hematocrit [Volume Fraction] of Blood by Automated count 36.0-48.0 [facility] Hemoglobin [Mass/volume] in Bloodon 05-01-2024 Hemoglobin (Bld) [Mass/Vol] 13.1 g/dL 12.0-16.0 [facility] Hemoglobin (Bld) [Mass/Vol] Hemoglobin [Mass/volume] in Blood 12.0-16.0 [facility] INR in Platelet poor plasma by Coagulation assayon 05-01-2024 INR Coag (PPP) [Relative time] 1.07 {INR} [facility] Comment on above: DESIRED INR:2.0-3.0 CONDITIONS NOT LISTED BELOW2.5-3.5 FOR PROSTHETIC HEART VALVE REPLACEMENT2.5-3.5 RECURRENT THROMBOSIS INR Coag (PPP) [Relative time] INR in Platelet poor plasma by Coagulation assay [facility] Comment on above: DESIRED INR:2.0-3.0 CONDITIONS NOT LISTED BELOW2.5-3.5 FOR PROSTHETIC HEART VALVE REPLACEMENT2.5-3.5 RECURRENT THROMBOSIS Laboratory - Chemistry and C hemistry - challengeon 05-01-2024 Bilirubin Ql (U) Negative NEGATIVE [facility] Glucose (U) [Mass/Vol] Negative NEGATIVE Fi [facility] Ketones Ql (U) Negative NEGATIVE [facility] pH (U) 6.0 [pH] 5.0-9.0 [facility] Specific gravity (U) [Rel density] 1.020 1.005-1.025 [facility] Urobilinogen Qn (U) 0.2 {Diana'U}/dL 0.2-1.0 [facility] Albumin [Mass/Vol] 2.9 g/dL Low 3.4-5.0 [place] ALP [Catalytic activity/Vol] 196 U/L High 46-116 [facility] ALT [Catalytic activity/Vol] 44 U/L 14-59 [facility] AST [Catalytic activity/Vol] 51 U/L High 15-37 [facility] Bilirubin [Mass/Vol] 0.7 mg/dL 0.2-1.0 [facility] Bilirubin.direct [Mass/Vol] 0.2 mg/dL 0.0-0.2 [facility] Calcium [Mass/Vol] 9.1 mg/dL 8.5-10.1 [place] Chloride [Moles/Vol] 107 mmol/L 98-107 [facility] CO2 [Moles/Vol] 25.8 mmol/L 21.0-32.0 [facility] Creatinine [Mass/Vol] 1.05 mg/dL High 0.55-1.[address] [facility] GFR/1.73 sq M.predicted MDRD (S/P/Bld) [Vol rate/Area] mL/min/{1.73_m2} >=60 mL/min/1.73m 2 [facility] Glucose [Mass/Vol] 84 mg/dL 74-106 [place] Potassium [Moles/Vol] 3.7 mmol/L 3.5-5.[address] [facility] Protein [Mass/Vol] 7.2 g/dL 6.4-8.2 [place] Sodium [Moles/Vol] 143 mmol/L 136-145 [place] Urea nitrogen [Mass/Vol] 20.0 mg/dL High 7.0-18.0 [facility] Urea nitrogen/Creatinine [Mass ratio] 19.0 mg/mg [facility] Laboratory - Hematology and Cell countson 05-01-2024 Immature granulocytes/100 WBC (Bld) 0.2 % 0.0-0.5 [facility] Laboratory - Specimen inform ationon 05-01-2024 Appearance (U) CLEAR CLEAR [facility] Color (U) YELLOW YELLOW [facility] Laboratory - Urinalysison Leukocyte esterase Test strip Ql (U) Negative NEGATIVE [facility] Nitrite Ql (U) Negative NEGATIVE [facility] Protein Ql (U) Negative NEG/TRACE [facility] Leukocytes [#/volume] correc reji for nucleated erythrocytes in Blood by Automated counon 05-01-2024 WBC corrected for nucl RBC Auto (Bld) [#/Vol] 4.5 10 3/uL 4.0-11.0 [facility] WBC corrected for nucl RBC Auto (Bld) [#/Vol] Leukocytes [#/volume] corrected for nucleated erythrocytes in Blood by Automated coun 4.0-11.0 [facility] Lymphocytes Auto (Bld) [#/Vo l]on 05-01-2024 Lymphocytes (Bld) [#/Vol] 2.0 10 3/uL 1.2-3.8 [facility] Lymphocytes (Bld) [#/Vol] Lymphocytes [#/volume] in Blood by Automated count 1.2-3.8 [facility] Lymphocytes/100 WBC Auto (Bl d)on 05-01-2024 Lymphocytes/100 WBC (Bld) 43.8 % 20.5-60.0 [facility] Lymphocytes/100 WBC (Bld) Lymphocytes/100 leukocytes in Blood by Automated count 20.5-60.0 [facility] MCH Auto (RBC) [Entitic mass ]on 05-01-2024 MCH (RBC) [Entitic mass] 34.5 pg High 26.7-34.0 [facility] MCH (RBC) [Entitic mass] MCH [Entitic mass] by Automated count High 26.7-34.0 [facility] MCHC Auto (RBC) [Mass/Vol]on 05-01-2024 MCHC (RBC) [Mass/Vol] 33.5 g/dL 29.9-35.[address] [facility] MCHC (RBC) [Mass/Vol] MCHC [Mass/volume] by Automated count 29.9-35.2 [facility] MCV Auto (RBC) [Entitic vol] on 05-01-2024 MCV (RBC) [Entitic vol] 102.9 fL High 81.0-99.[address] [facility] MCV (RBC) [Entitic vol] MCV [Entitic vol ume] by Automated count High 81.0-99.0 [facility] Monocytes Auto (Bld) [#/Vol] on 05-01-2024 Monocytes (Bld) [#/Vol] 0.6 10 3/uL 0.3-0.8 [facility] Monocytes (Bld) [#/Vol] Automated blood monocyte count 0.3-0.8 [facility] Monocytes/100 WBC Auto (Bld) on 05-01-2024 Monocytes/100 WBC (Bld) 13.8 % High 1.7-12.[address] [facility] Monocytes/100 WBC (Bld) Automated monocyte % High 1. 7-12.0 [facility] Neutrophils Auto (Bld) [#/Vo l]on 05-01-2024 Neutrophils (Bld) [#/Vol] 1.7 10 3/uL 1.4-6.5 [facility] Neutrophils (Bld) [#/Vol] Neutrophils [#/volume] in Blood by Automated count 1.4-6.5 [facility] Neutrophils/100 WBC Auto (Bl d)on 05-01-2024 Neutrophils/100 WBC (Bld) 37.7 % Low 43.0-75.0 [facility] Neutrophils/100 WBC (Bld) Automated neutrophil % Low 43.0-75.0 [facility] No Panel Informationon 05-01 Urine Microscopic Review NO [facility] Urine Occult Blood Negative NEGATIVE [place] Eosinophils # (Auto) 0.2 10 3/uL 0.0-0.[address] [facility] Immature Granulocyte # (Auto) 0.01 10 3/uL 0.00-0.03 [facility] No Panel InformationOrdered By: Johny Perdomo on 05-01-2024 MRSA Screening Culture [facility] Platelet mean volume Auto (B ld) [Entitic vol]on 05-01-2024 Platelet mean volume (Bld) [Entitic vol] 12.6 fL 9.5-13.5 [facility] Platelet mean volume (Bld) [Entitic vol] Platelet mean volume [Entitic volume] in Blood by Automated count 9.5-13.5 [facility] Platelets Auto (Bld) [#/Vol] on 05-01-2024 Platelets (Bld) [#/Vol] 266 10 3/uL 150-450 [facility] Platelets (Bld) [#/Vol] Platelets [#/vol ume] in Blood by Automated count 150-450 [facility] Prothrombin time (PT)on 04-14 PT Coag (PPP) [Time] 11.3 s 9.0-11.6 [facility] PT Coag (PPP) [Time] Prothrombin time (PT) 9.0- 11.6 [facility] RBC Auto (Bld) [#/Vol]on RBC (Bld) [#/Vol] 3.80 10 6/uL Low 4.20-5.40 [facility] RBC (Bld) [#/Vol] Erythrocytes [#/volume] in Blood by Automated count Low 4.20-5.40 [facility] Serum or plasma albumin/glob ulin mass ratioon 05-01-2024 Albumin/Globulin [Mass ratio] 0.7 {ratio} [facility] Albumin/Globulin [Mass ratio] Serum or plasma albumin/globulin mass ratio [facility] Serum or plasma anion gap de terminationon 05-01-2024 Anion gap [Moles/Vol] 13.9 mmol/L Fi [facility] Anion gap [Moles/Vol] Serum or plasma an ion gap determination [facility] C Urineon 01-19-2024 Bacteria identified [...] Locations R1: This test was performed at: [facility], [address] [place] [address], [address]- , [place], Normal [facility] Comment on above: Performed By: #### 2 [id number] #### [facility] [address] [place] [id number] Ambulatory Visit Summaryon 0 01-15-2024 Ambulatory Visit [...] D3 5000 intl units oral capsule) fexofenadine (Mayr) Procedures Performed Cholecystectomy (07/29/2019), Parathyroidectomy (07/15/2016), Colonoscopy [...] Arteaga, KEKE, URO When: Where: [address] [place] [phone] Medications What How Much When Instructions Unchanged estradiol topical (Estrace 0.1 mg/ g Cream) See instructions Apply pea-sized amound around the opening of the urethra 3 times per week for 1 month then 2 times per week after for maintenance. Pickup at [facility] Unchanged biotin (biotin 5000 mcg oral capsule) Contact prescribing physician if questions or concerns Unchanged cholecalciferol (Vitamin D3 5000 intl units oral capsule) 1 Capsules By Mouth Every day with food Contact prescribing physician if questions or concerns Unchanged fexofenadine (Mary) By Mouth Contact prescribing physician if questions or concerns Pharmacy Information [facility]: [address] [place] [phone] Allergies codeine (nausea) Problems Ongoing - Any [...] to (more content not included)... Normal [facility] Urology Office/Clinic Noteon 01-15-2024 Urology Office/Clinic [...] Information Gage JACOB, Katie Arteaga, URL, URO [address], [place] [phone] Additional Instructions: pt's choice on when to schedule f/u Patient Education Kegel Exercises Anand, Yuliana Olson, personally scribed for Dr. Almonte on 01/15/2024 11:27:08. . Documentation recorded by the scribeYuliana, accurately reflects the services(s) I performed and decisions made by me. Authenticated by Dr. Almonet on 01/15/2024 23:28:03. Problem List/Past Medical History Ongoing Asymptomatic bacteriuria Calculus of gallbladder Hyperparathyroidism Osteopeni (more content not included)... Normal [facility] Comment on above: Result Comment: Elec tronically Signed By: Katie Almonte MD\.br\Date and Time Signed: 01/15/24 23:28 EDT\.br\Electronically Co-Signed By: Yuliana Olson\.br\Date and Time Co-Signed: 01/15/24 11:27 EDT [place] 02-21-2023 Screens [id number] [facility] Patient Educationon 02-21-20 Patient Education Obstetrics [...] these instructions at home: Medicines ? Take [id number]-eqy-awcflom and prescription medicines only as told by [...] provider. Document Revised: 02/10/2021 Document Reviewed: 02/10/2021 [employer] Patient Education ? 2022 [employer] Normal [facility] Urology Office/Clinic Noteon 02-20-2023 Urology Office/Clinic [...] exam (more content not included)... Normal [facility] Comment on above: Result Comment: Elec tronically Signed By: Katie Almonte MD\.br\Date and Time Signed: 02/20/23 12:03 EDT\.br\Electronically Co-Signed By: Sepideh Perez\.br\Date and Time Co-Signed: 02/20/23 11:49 EDT Covid-19 PCR (CVDTB)on 07-15 SARS-CoV-2 (COVID-19) RNA AZUL+probe Ql (Unsp spec) Not detected Normal NOT DETECTED [facility] Comment on above: Result Comment: This test is not yet approved or cleared by the [place] FDA. When there are no FDA-approved or cleared tests available, and other criteria are met, FDA can make tests available under an emergency access mechanism called an Emergency Use Authorization (EUA). The EUA for this test is supported by the Special Loan Officer of Health and Human Service's (HHS's) declaration [...] SARS-CoV-2. Performed By: #### C VDTBH #### [facility] [address] [place] [address] Dr. Manjula Arzate CREATININEon 06-13-2022 Creatinine [Mass/Vol] 0.98 mg/dL Normal 0.55-1.02 [facility] Comment on above: Performed By: #### C JESUS #### [facility] [address] [address] [address] Manjula Arzate EGFR-AF GEORGIAN >60 Normal >=60 [facility] Comment on above: Performed By: #### C JESUS #### [facility] [address] [place], [place] [address] Dr. Manjula Arzate EGFR-NON AF GEORGIAN 55 mL/min/1.73m2 Critically low >=60 [facility] Comment on above: Performed By: #### C JESUS #### [facility] [address] ABD/PELV W CONon [...] by: DARIO BESS Date: 2022-06-13 17:40 Normal [facility] CT ABD/PELVIS WO CONon 11-27 [...] by: DARIO BESS Date: 2021-11-27 10:41 Normal [facility] Vital Signs Date Time Vital Sign Value Performing Clinician Facility 07-16-2024 08:56-0500 Body height 165.1 cm Maryan Mcwilliams MD Work Phone: [facility] 07-16-2024 08:56-0500 Body mass index (BMI) [Ratio] 34.4 kg/m2 Maryan Mcwilliams MD Work Phone: [facility] 07-16-2024 08:56-0500 Body weight 93.89 kg Maryan Mcwilliams MD Work Phone: [facility] 07-16-2024 08:56-0500 Diastolic blood pressure 66 mm[Hg] Maryan Mcwilliams MD Work Phone: [facility] 07-16-2024 08:56-0500 Heart rate 83 /min Maryan Mcwilliams MD Work Phone: [facility] 07-16-2024 08:56-0500 Systolic blood pressure 112 mm[Hg] Maryan Mcwilliams MD Work Phone: [facility] 06-10-2024 15:24-0500 Body height 167.6 cm Zaida Child MD Work Phone: [facility] 06-10-2024 15:24-0500 Body mass index (BMI) [Ratio] 32.28 kg/m2 Zaida Child MD Work Phone: [facility] 06-10-2024 15:24-0500 Body weight 90.72 kg Zaida Child MD Work Phone: [facility] 06-10-2024 15:24-0500 Diastolic blood pressure 84 mm[Hg] Zaida Child MD Work Phone: [facility] 06-10-2024 15:24-0500 Systolic blood pressure 132 mm[Hg] Zaida Child MD Work Phone: [facility] 05-28-2024 11:08-0500 Body height 167.6 cm Zaida Child MD Work Phone: [facility] 05-28-2024 11:08-0500 Body mass index (BMI) [Ratio] 33.09 kg/m2 Zaida Child MD Work Phone: [facility] 05-28-2024 11:08-0500 Body temperature 97.39 [degF] Zaida Child MD Work Phone: [facility] 05-28-2024 11:08-0500 Body weight 92.99 kg Zaida Child MD Work Phone: [facility] 05-28-2024 11:08-0500 Diastolic blood pressure 84 mm[Hg] Zaida Child MD Work Phone: [facility] 05-28-2024 11:08-0500 Heart rate 72 /min Zaida Child MD Work Phone: [facility] 05-28-2024 11:08-0500 SaO2% (BldA) [Mass fraction] 97 % Zaida Child MD Work Phone: [facility] 05-28-2024 11:08-0500 Systolic blood pressure 146 mm[Hg] Zaida Child MD Work Phone: [facility] 05-19-2024 11:18-0500 Body height 165.1 cm [facility] 05-19-2024 11:18-0500 Body mass index (BMI) [Ratio] 33.1 kg/m2 [facility] 05-19-2024 11:18-0500 Body weight 90.26 kg [facility] 05-19-2024 11:18-0500 Diastolic blood pressure 76 mm[Hg] [facility] 05-19-2024 11:18-0500 Heart rate 91 /min [facility] 05-19-2024 11:18-0500 Systolic blood pressure 114 mm[Hg] [facility] 05-07-2024 14:39-0400 Body height 165.1 cm [facility] 05-07-2024 14:39-0400 Body mass index (BMI) [Ratio] 33.7 kg/m2 [facility] 05-07-2024 14:39-0400 Body weight 92.07 kg [facility] 05-07-2024 14:39-0400 Diastolic blood pressure 79 mm[Hg] [facility] 05-07-2024 14:39-0400 Heart rate 76 /min [facility] 05-07-2024 14:39-0400 Systolic blood pressure 116 mm[Hg] [facility] 04-29-2024 08:21-0400 Body height 165.1 cm [facility] 04-29-2024 08:21-0400 Body mass index (BMI) [Ratio] 33.8 kg/m2 [facility] 04-29-2024 08:21-0400 Body weight 92.3 kg [facility] 04-29-2024 08:21-0400 Diastolic blood pressure 82 mm[Hg] [facility] 04-29-2024 08:21-0400 Heart rate 74 /min [facility] 04-29-2024 08:21-0400 Respiratory rate 16 /min [facility] 04-29-2024 08:21-0400 SaO2% (BldA) [Mass fraction] 96 % [facility] 04-29-2024 08:21-0400 Systolic blood pressure 120 mm[Hg] [facility] 01-24-2024 10:54-0400 Body height 165.1 cm [facility] 01-24-2024 10:54-0400 Body mass index (BMI) [Ratio] 35.6 kg/m2 [facility] 01-24-2024 10:54-0400 Body weight 97.06 kg [facility] 01-24-2024 10:54-0400 Diastolic blood pressure 81 mm[Hg] [facility] 01-24-2024 10:54-0400 Heart rate 71 /min [facility] 01-24-2024 10:54-0400 Systolic blood pressure 121 mm[Hg] [facility] 01-15-2024 10:37-0400 Blood Pressure Location Katie Lue [facility] 01-15-2024 10:37-0400 Body temperature 97.88 [degF] Katie Lue [facility] 01-15-2024 10:37-0400 Diastolic blood pressure 78 mm[Hg] Katie Lue [facility] 01-15-2024 10:37-0400 Heart rate 71 /min Katie Lue [facility] 01-15-2024 10:37-0400 Systolic blood pressure 132 mm[Hg] Katie Lue [facility] 02-20-2023 10:53-0400 Blood Pressure Location Katie Lue [facility] 02-20-2023 10:53-0400 Diastolic blood pressure 76 mm[Hg] Katie Lue [facility] 02-20-2023 10:53-0400 Heart rate 68 /min Katie Lue [facility] 02-20-2023 10:53-0400 Respiratory rate 16 /min Katie Lue [facility] 02-20-2023 10:53-0400 Systolic blood pressure 130 mm[Hg] Katie Lue [facility] 08-22-2022 11:50-0500 Blood Pressure Location Katie Lue [facility] 08-22-2022 11:50-0500 Diastolic blood pressure 78 mm[Hg] Katie Lue [facility] 08-22-2022 11:50-0500 Heart rate 68 /min Katie Lue [facility] 08-22-2022 11:50-0500 Respiratory rate 16 /min Katie Lue [facility] 08-22-2022 11:50-0500 Systolic blood pressure 132 mm[Hg] Katie Almonte [facility] 12-05-2021 10:33-0400 Diastolic blood pressure 81 mm[Hg] Mally Key Jr. [facility] 12-05-2021 10:33-0400 Mean blood pressure 101 mm[Hg] Mally Key Jr. [facility] 12-05-2021 10:33-0400 Systolic blood pressure 142 mm[Hg] Mally Key Jr. [facility] 12-05-2021 10:12-0400 Blood Pressure Location Mally Key Jr. [facility] 12-05-2021 10:12-0400 Diastolic blood pressure 97 mm[Hg] Mally Key Jr. [facility] 12-05-2021 10:12-0400 Heart rate 87 /min Mally Key Jr. [facility] 12-05-2021 10:12-0400 Respiratory rate 16 /min Mally Key Jr. [facility] 12-05-2021 10:12-0400 Systolic blood pressure 163 mm[Hg] Mally Key Jr. [facility] Encounters Encounter Date Encounter Type Care Provider Facility Start: 07-16-2024 End: 07-16-2024 ambulatory Maryan Mcwilliams MD Work Phone: [facility] Work Phone: Start: 07-16-2024 End: 07-16-2024 Patient encounter procedure Maryan Mcwilliams MD Work Phone: [facility] Physician [facility] Work Phone: Start: 07-09-2024 Non-patient / Non-visit Maryan Mcwilliams MD Work Phone: [facility] Work Phone: Start: 07-08-2024 End: 07-08-2024 ambulatory Maryan Mcwilliams Facility:[facility] Start: 07-08-2024 End: 07-08-2024 Departed Referred Maryan Mcwilliams MD Work Phone: [facility] Start: 06-10-2024 End: 06-10-2024 Office outpatient visit 15 minutes Zaida Child MD Work Phone: [facility] Comment on above: Superficial phlebiti s and thrombophlebitis of right lower extremity (Primary Dx); Varicose veins of bilateral lower extremities with pain Start: 06-10-2024 End: 06-10-[address] [facility] Start: 06-03-2024 End: [...] 05-19-2024 ambulatory [facility] Work Phone: Start: 05-19-2024 End: 05-19-2024 Patient encounter procedure [facility] Work Phone: Start: 05-07-2024 Non-patient / Non-visit [facility] Physician [facility] Work Phone: Start: 05-07-2024 End: 05-07-2024 ambulatory [facility] Work Phone: Start: 05-07-2024 End: 05-07-2024 Patient encounter procedure [facility] Work Phone: Start: 2024 Non-patient / Non-visit [facility] Physician [facility] Work Phone: Start: 05-03-2024 Non-patient / Non-visit Maryan Mcwilliams MD Work Phone: [facility] Work Phone: Start: 05-01-2024 Patient encounter status [facility] Start: 05-01-2024 Non-patient / Non-visit [facility] Physician [facility] Work Phone: Start: 04-29-2024 End: 04-29-2024 ambulatory [facility] Work Phone: Start: 04-29-2024 End: 04-29-2024 Encounter for other preprocedural examination Maryan Mcwilliams MD Work Phone: [facility] Start: 04-29-2024 End: 04-29-2024 Patient encounter procedure [facility] Work Phone: Start: 04-10-2024 End: 04-10-2024 ambulatory Johny Perdomo DO Facility:[facility] Start: 03-20-2024 ambulatory Johny willis DO Facility:[facility] Start: 02-05-2024 Patient encounter procedure [facility] Start: 01-24-2024 End: 01-24-2024 ambulatory [facility] Work Phone: Start: 01-24-2024 End: 01-24-2024 Patient encounter procedure [facility] Work Phone: Start: 01-15-2024 End: 01-15-2024 ambulatory Katie M. Lue Facility:[facility] Start: 01-15-2024 End: 01-15-2024 Lab Drop off Katie M. Lue [facility] Start: 01-15-2024 End: 01-15-2024 ambulatory Katie M. Lue Facility:[facility] Start: 01-15-2024 End: 01-15-2024 Patient encounter procedure Katie M. Lue [facility] Start: 08-01-2023 End: 08-01-2023 ambulatory Hafsa Knowles Other [facility] Other Start: 08-01-2023 Telephone encounter Hafsa Knowles [facility] Start: 07-30-2023 End: 07-30-2023 ambulatory Hafsa Knowles Other [facility] Other Start: 07-30-2023 Telephone encounter Hafsa Knowles [facility] Start: 02-20-2023 End: 02-20-2023 ambulatory Katie M. Lue Facility:[facility] Start: 02-20-2023 End: 02-20-2023 Patient encounter procedure Katie M. Lue [facility] Start: 08-22-2022 End: 08-22-2022 Patient encounter procedure Katie M. Lue [facility] Start: 08-01-2022 End: 08-01-[address] ANTWON BAKER Facility:[facility] Start: 07-30-2022 End: 07-31-[address] ANTWON BAKER Facility:[facility] Start: 07-12-2022 Adult health examination Vanessa Knowles Other [facility] Other Start: 06-13-2022 End: 06-14-[address] HAFSA KNOWLES Facility:[facility] Start: 12-05-2021 End: 12-05-2021 Patient encounter procedure Mally Key Jr. [facility] Start: 11-27-2021 End: 11-28-[address] MALLY KEY JR Facility:[facility] Procedures Date Procedure Procedure Detail Performing Clinician Start: 07-08-2024 Urine culture Maryan Brody MD Work Phone: Start: 05-01-2024 MRSA Screening Culture Start: 07-29-2019 Cholecystectomy Mally eKy Jr. Start: 07-15-2016 Parathyroidectomy Gregg Key Jr. [...] Author Start: 06-10-2025 Tobacco Screening Tobacco Screening [facility] Start: 05-28-2025 Tobacco Screening Tobacco Screening [facility] Start: 06-25-2024 End: 06-25-2024 Patient encounter procedure 06/25/2024 9:20 AM EST Office Visit [facility] [address] [place] [phone] Zaida Child MD [address], [address] [address] [facility] Start: 06-18-2024 End: 06-18-2024 Patient encounter procedure 06/18/2024 10:20 AM EST Office Visit [facility] [address] [place] [phone] Zaida Child MD [address], [address] [address] [facility] Start: 05-19-2024 Patient referral [facility] Work Phone: Start: 03-15-2024 COVID-19 Vaccine ( season) COVID-19 Vaccine ( season) [facility] Start: 07-20-2023 Tobacco Screening Tobacco Screening [facility] Start: 2012 Fall Risk Screening Fall Risk Screen ing [facility] Start: 1966 DTaP,Tdap and Td Vaccines (1 - Tdap) DTaP,Tdap and Td Vaccines (1 - Tdap) [facility] Start: 1959 [facility] S[facility].axial Views for bone density [facility] MG Breast - bilatera l Screening [facility] Patient referral [facility] Work Phone: US Lower extremity v ein - right [facility] XR Tibia and Fibula - right 2 Views [facility] Immunizations Immunization Date Immunization Notes Care Provider Fa cility 04-10-2022 SARS-CoV-2 (COVID-19 ) [id number] Katie Lue [facility] 04-11-2021 SARS-CoV-2 (COVID-19 ) mRNA BNT-162b2 vax Katie Lue [facility] 02-15-2021 zoster vaccine recombinant Katie Lue [facility] 11-30-2020 zoster vaccine recombinant Katie Lue [facility] 08-30-2020 SARS-CoV-2 (COVID-19 ) mRNA BNT-162b2 vax Katie Lue [facility] Comment on above: Result Comment: 2022: [id number] 08-09-2020 SARS-CoV-2 (COVID-19 ) mRNA BNT-162b2 vax Katie Lue [facility] Comment on above: Result Comment: 2022: [id number] 05-16-2020 influenza virus vaccine, split virus (incl. purified surface antigen) Hafsa Knowles Other [facility] Other 05-16-2020 influenza virus vaccine, unspecified formulation [facility] 04-26-2020 influenza virus vaccine, unspecified formulation Katie Lue [facility] 12-16-2018 pneumococcal polysaccharide vaccine, 23 valent Hafsa Knowles Other [facility] 11-07-2017 pneumococcal conjuga te vaccine, 13 valent Mally Key Jr. [facility] 11-07-2017 pneumococcal Conjuga te, unspecified formulation; Translations: [Need for prophylactic vaccination against Streptococcus pneumoniae (pneumococcus)] Hafsa Knowles Other [facility] Other 10-13-2017 pneumococcal polysaccharide vaccine, 23 valent Katie Gage [facility] 04-14-2017 influenza virus vaccine, unspecified formulation Katie Almonte [facility] Payers Date Payer Category Payer Self-pay 2020 [employer] [facility] [id number] 2012 Medicare 2012 Unknown 1959 Medicare [id number] 1959 Unknown [id number] 1947 Unknown [id number] 93 1947 Unknown [id number] 93 1947 Unknown [id number] 93 1947 Unknown [id number] 93 1947 Unknown [id number] 27 1947 Unknown [id number] 27 1947 Unknown [id number] 27 1947 Unknown [id number] 96 1947 Unknown [id number] 286 Medicare Medicare [id number] Unknown [id number] 31 Social History Date Type Detail Facility Start: 12-05-2021 End: 07-23-2023 Tobacco smoking status Never smoked tobacco (finding) [facility] Start: 05-28-2024 End: 06-10-2024 Sex Assigned At Female [facility] Tobacco smoking status Never [facility] Start: 1945 Sex Assigned At Female [facility] Start: 07-18-2022 Tobacco use and exposure Smokeless tobacco non-user [facility] Start: 05-28-2024 End: 06-10-2024 Alcoholic beverage intake Lifetime non-drinker (finding) [facility] Start: 05-28-2024 End: 06-10-2024 History of Social function [facility] Start: 07-18-2022 Alcohol Comment rare [facility] Start: 1945 Sex assigned at Not on file P Alfonso [facility] Start: 05-31-2021 End: 07-16-2024 Sex Female (finding) [facility] Functional Status Date Assessment Result Facility 01-15-2024 Functional Status N/A [facility] 02-20-2023 Functional Status N/A [facility] 08-22-2022 Functional Status N/A [facility] Clinical Notes 12-05-2021 to 06-10-2024 [...] ultrasound compression stockings leg elevation and exercise. [facility] 06-10-2024 Evaluation + Plan note Associated Problem(s): Superficial phlebitis and thrombophlebitis of right lower extremity Warm compresses nonsteroidal anti-inflammatory drugs leg elevation and compression therapy. We will get venous reflux ultrasound and rule out DVT as well. [facility] 06-10-2024 Miscellaneous Notes Associated Problem(s): Varicose veins of bilateral lower extremities with pain Venous reflux ultrasound compression stockings leg elevation and exercise. Associated Problem(s): Superficial phlebitis and thrombophlebitis of right lower extremity Warm compresses nonsteroidal anti-inflammatory drugs leg elevation and compression therapy. We will get venous reflux ultrasound and rule out DVT as well. documented [facility] History of Presen t illness Narrative [...] given by office. Patient was given a [employer] coupon voucher to use, this is not [...] 06/14/2021 Performed by Vic Hitchcock DO at [facility] BREAST SURGERY bx, marker in place [...] RPVI, FSVS, FACS [facility] This note was created with the assistance of a speech recognition program. While intending to generate a timely document that accurately reflects the content of the visit, no guarantee can be provided that every grammatical or spelling mistake has been or will be identified or corrected. Thank you for your understanding. documented in this encounter [facility] 05-28-2024 Evaluation + Plan note Associated Problem(s): Varicose veins of bilateral lower extremities with pain Compression stockings leg elevation exercise. Venous reflux ultrasound. [facility] 05-28-2024 Miscellaneous Notes Associated Problem(s): Varicose veins of bilateral lower extremities with pain Compression stockings leg elevation exercise. Venous reflux ultrasound. Associated Problem(s): Superficial phlebitis and thrombophlebitis of right lower extremity Nonsteroidal anti-inflammatory drugs warm compresses leg elevation and compression therapy when possible documented in this encounter [facility] 05-28-2024 Evaluation + Plan note Associated Problem(s): Superficial phlebitis and thrombophlebitis of right lower extremity Nonsteroidal anti-inflammatory drugs warm compresses leg elevation and compression therapy when possible [facility] 05-28-2024 History of Presen t illness [...] 06/14/2021 Performed by Vic Hitchcock DO at [facility] BREAST SURGERY bx, marker in place left [...] pain - [facility] [place] [place] Phlebitis and thrombophlebitis of unspecified site - [facility] [place] [place] Varicose veins of bilateral lower extremities with [...] for your understanding. documented in this encounter [facility] 04-29-2024 Evaluation note Diagnosis Onset Date Resolution Preoperative examination acute April 29 11:24am Right leg pain acute May 072023 2:12pm Phlebitis acute May 19, 2024 11:09am Right leg pain acute May 192023 11:09am Hydronephrosis, right acute Enrico uary 2024 8:54am Kidney stone acute July 16, 2024 8:54am [facility] Work Phone: [phone]) 514-734309-27-2024 NoteProcedure: MRI of the right knee without [...] Is Signed, Electronically Signed in Other Vendor System)[facility]09-27-2024 NoteProcedure: MRI of the right knee without [...] Is Signed, Electronically Signed in Other Vendor System)[facility]07-03-2024 Evaluation + Plan note Diagnostic Tests Pending * Urine Culture 01/15/24 [facility]07-03-2024 Hospital Discharge instructions Patient Education 01/15/2024 [...] provider. Document Revised: 11/09/2021 Document Reviewed: 11/09/2021 Huan Xiong Patient Education 2022 [employer]. Follow Up Care 02/20/2023 12:02:25 With:Gage JACOB, HARSH CarreraL, URO Address: [address], [place] [phone] When: Unknown [facility] [place] 07-03-2024 NotePatient Education Obstetrics and Gynecology Kegel [...] provider. Document Revised: 11/09/2021 Document Reviewed: 11/09/2021 Huan Xiong Patient Education ? 2022 [employer].[facility] 07-30-2023 Evaluation note* Encounter Date Diagnosis Assessment Notes Treatment Notes Treatment Clinical Notes Jul, Acute non-recurrent maxillary sinusitis (ICD-10 - J01.00) [facility] Other 08-09-2023 Hospital Discharge instructions Patient Education 02/20/2023 09:58:29 Urinary Tract Infection, Adult, Ozlo-eq-Zmlw Urinary Tract Infection, Adult A urinary tract [...] Follow these instructions at home: Medicines Take ptwe-vxi-wdskpcm and prescription medicines only as told by [...] provider. Document Revised: 02/10/2021 Document Reviewed: 02/10/2021 Huan Xiong Patient Education 2022 [employer]. Follow Up Care 08/22/2022 12:56:32 With:Gage JACOB, KEKE Carrera, URO Address: When:Within 1 Year(s) [facility] 02-08-2023 Hospital Discharge instructions Patient [...] 06/17/2013 Document Revised: 02/18/2019 Document Reviewed: 02/18/2019 Huan Xiong Patient Education 2020 [employer]. Follow Up Care 06/13/2022 11:42:12 With:Gage JACOB, KEKE Carrera, URO Address: When: Unknown [facility] 05-24-2022 Hospital Discharge instructions Patient [...] provider gives to you. In general: Take vhwk-wji-pmgwgyb and prescription medicines only as told by [...] 01/26/2015 Document Revised: 08/07/2018 Document Reviewed: 08/07/2018 Huan Xiong Patient Education 2019 [employer]. Follow Up Care 06/07/2021 13:20:37 With:Shahid Ontiveros MD, Mally Mendiola, URO Address: [facility] [address], [place] [address]- When: Unknown [facility] evaluation + Plan note No data available for this section [facility] evaluation + Plan note Future Appointments Appointment Date:02/20/2023 10:45:00 AM Scheduled Provider:Katie Almonte MD Location:[facility] Appointment Type:URO Office Visit [facility] evaluation + Plan note Future Appointments Appointment Date:02/26/2024 10:45:00 AM Scheduled Provider:Katie Almonte MD Location:[facility] Appointment Type:URO Office Visit [facility] evaluation noteNo [facility] Other evaluation note* Diagnosis Onset Date Resolution Status Menopausal and postmenopausal disorder acute Screening mammogram for breast cancer acute [facility] Work Phone: Evaluation noteNo assessment information available [facility] Work Phone: Evaluation note* Diagnosis Onset Date Resolution Status Preoperative examination acu te Right leg pain acute [facility] Work Phone: Evaluation note* Diagnosis Onset Date Resolution Status Preoperative examination acu te Right leg pain acute Phlebitis acute Right leg pain acute [facility] Work Phone: Evaluation note* Diagnosis [...] with pain documented in this [facility] Narrative - Reported* Type [...] ABOVE SURGERY Hospitalization History CHILD X'S 2 [facility] Other Hospital Discharge instructions No data available for this section [facility] Discharge instructionsAmbulatory Orders* Referral to Vascular Surgery Time Frame: 05/19/24, Location: None [facility] Work Phone: InstructionsNot on filedocumented in this encounter [facility] on filedocumented in this encounter [facility]ructionsNot on filedocumented in this encounter [facility] No data available for this section [facility] Summary Purpose Family History Relationship [...] and content) DATE CREATED AUTHOR [facility]/02/[address] [facility] DATE CREATED AUTHOR AUTHOR'S ORGANIZ ATION 01/16/2024 [facility] DATE CREATED AUTHOR AUTHOR'S ORGANIZ ATION 01/19/2024 [facility] DATE CREATED AUTHOR AUTHOR'S ORGANIZ ATION 04/11/2024 [facility] DATE CREATED AUTHOR AUTHOR'S ORGANIZ ATION 06/13/2024 [facility] DATE CREATED AUTHOR AUTHOR'S ORGANIZ ATION 07/12/2024 [facility] Patient Care team informatio [...] May 19, 2024 End: May 19, 2024 Doughnut Icer 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 Start Date End Date Hafsa Knowles MD [address] [place] [address] PCP - General Family Medicine 06/01/21 Doughnut Icer 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 Start Date End Date Hafsa Knowles MD [address] [place] [address] PCP - General Family Medicine 06/01/21 Doughnut Icer 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 Start Date End Date Hafsa Knowles MD [address] [place] [address] PCP - General Family Medicine 06/01/21 Team [...] thrombophlebitis of unspecified site Hafsa Knowles MD [address] [place] [address] Phone: tel: fax: [facility] [address] [place] [address] Phone: tel:[phone] fax: Referral ID Status Reason Start Date Expiration Date Visits Requested Visits Authorized [id number] Pending Review Specialty Services Required 05/20/2024 05/20/2025 [...] BE BASED ON THE PRIMARY CLINICAL RECORDS. [employer] provides no warranty or guarantee of the accuracy or completeness of information in this document.
[2024-08-17 11:53] VITALS: BP 140/80; PULSE 85; O2SAT 96; BMI 36.3
--- NOTE | 2024-08-17 11:53 | V.VEINS.HP ---
Vital Signs 08/17/24 11:53 Height 5 ft 6 in Weight 102 kg BMI 36.3 BP 140/80 BP Location Right Brachial BP Position Sitting BP Cuff Size Large Adult BP Source Automatic Cuff Pulse 85 Pulse Oximetry (%) 96 Oxygen Delivery Method Room Air Comment The patient's blood pressure is elevated. Varicose Veins Patient in today for follow up ultrasound of left lower extremity following treatment of Varithena/microfoam completed on 08/13/24. Blanco Michel MD personally performed the services described in this documentation, as scribed by Nichole Wesley RDMS in my presence and it is both accurate and complete. Nichole Michel RDMS, am scribing for, and in the presence of, Dr. Blanco Sullivan and in the presence of the patient. thigh: bilateral, knee: bilateral, calf: bilateral, ankle: bilateral and anderson: bilateral aching, sharp and tender 3 8 weeks Worsened in recent months: Yes standing analgesics, elevating extremities and compression stockings Reports erythema, bruising, heaviness, limb pain, edema and leg edema History of lower extremity trauma: No Superficial thrombophlebitis: Yes Family history of varicose veins: yes Has patient had previous lower extremity venous surgery: No Patient has previously received the following treatment(s) for lower extremity varicose veins: Reports none Does patient have a history of : yes Does patient intend to have future pregnancies: no Has patient had lower extremity venous scan with relux testing: Yes Support hose used: Yes Problems walking or doing physical activity: Yes How does it affect you: Unable to stand for long periods of time Do you walk much: Yes Do you stand much: Yes Review of Systems ROS Narrative Blanco Michel MD personally performed the services described in this documentation, as scribed by Nichole Wesley RDMS in my presence and it is both accurate and complete. Nichole Michel RDMS, am scribing for, and in the presence of, Dr. Blanco Sullivan and in the presence of the patient. Status of ROS 10 or more systems reviewed and unremarkable except as noted in history and below Cardiovascular Reports: edema and swelling of feet/ankles Musculoskeletal Reports: extremity pain, extremity swelling, joint pain, joint swelling and muscle cramps Integumentary/Breast Reports: itching, redness, skin pain, skin tenderness, skin swelling and sores [facility] Medical History (Updated 08/17/24 @ 15:15 by Michael Sorensen MD) Phlebitis and thrombophlebitis of superficial vessels of right lower extremity ?I80.01 - Phlebitis and thrombophlebitis of superficial vessels of right lower extremity (ICD-10) Phlebitis and thrombophlebitis of superficial vessels of left lower extremity ?I80.02 - Phlebitis and thrombophlebitis of superficial vessels of left lower extremity (ICD-10) Pain due to varicose veins of both lower extremities ?I83.813 - Varicose veins of bilateral lower extremities with pain (ICD-10) Raynaud disease ?I73.00 - Raynaud's syndrome without gangrene (ICD-10) Arthritis ?M19.90 - Unspecified osteoarthritis, unspecified site (ICD-10) History of ITP (1989) ?Z86.2 - Personal history of diseases of the blood and blood-forming organs and certain disorders involving the immune mechanism (ICD-10) History of blood transfusion ?Z92.89 - Personal history of other medical treatment (ICD-10) Thyroid cyst ?E04.1 - Nontoxic single thyroid nodule (ICD-10) Phlebitis ?I80.9 - Phlebitis and thrombophlebitis of unspecified site (ICD-10) Varicose vein of leg ?I83.90 - Asymptomatic varicose veins of unspecified lower extremity (ICD-10) Knee pain ?M25.569 - Pain in unspecified knee (ICD-10) Seasonal allergic rhinitis ?J30.2 - Other seasonal allergic rhinitis (ICD-10) Cataracts, bilateral ?H26.9 - Unspecified cataract (ICD-10) Hyperparathyroidism ?E21.3 - Hyperparathyroidism, unspecified (ICD-10) Renal cyst ?N28.1 - Cyst of kidney, acquired (ICD-10) Osteopenia ?M85.80 - Other specified disorders of bone density and structure, unspecified site (ICD-10) Vitamin D deficiency ?E55.9 - Vitamin D deficiency, unspecified (ICD-10) Chronic UTI ?N39.0 - Urinary tract infection, site not specified (ICD-10) Genu varum of right lower extremity ?M21.161 - Varus deformity, not elsewhere classified, right knee (ICD-10) Primary osteoarthritis of right knee ?M17.11 - Unilateral primary osteoarthritis, right knee (ICD-10) Surgical History (Updated 08/04/24 @ 15:16 by Saeid Godinez) S/P sclerotherapy of varicose veins ?Z98.890 - Other specified postprocedural states (ICD-10) ?Z86.79 - Personal history of other diseases of the circulatory system (ICD-10) S/P sclerotherapy of varicose veins ?Z98.890 - Other specified postprocedural states (ICD-10) ?Z86.79 - Personal history of other diseases of the circulatory system (ICD-10) S/P sclerotherapy of varicose veins ?Z98.890 - Other specified postprocedural states (ICD-10) ?Z86.79 - Personal history of other diseases of the circulatory system (ICD-10) Status post laser ablation of incompetent vein ?Z98.890 - Other specified postprocedural states (ICD-10) Status post laser ablation of incompetent vein ?Z98.890 - Other specified postprocedural states (ICD-10) Status post laser ablation of incompetent vein ?Z98.890 - Other specified postprocedural states (ICD-10) History of colonoscopy ?Z98.890 - Other specified postprocedural states (ICD-10) H/O knee surgery ?Z98.890 - Other specified postprocedural states (ICD-10) H/O breast biopsy ?Z98.890 - Other specified postprocedural states (ICD-10) History of cholecystectomy ?Z90.49 - Acquired absence of other specified parts of digestive tract (ICD-10) H/O oophorectomy H/O parathyroidectomy ?Z98.890 - Other specified postprocedural states (ICD-10) ?Z90.89 - Acquired absence of other organs (ICD-10) History of hysterectomy ?Z90.710 - Acquired absence of both cervix and uterus (ICD-10) H/O tubal ligation ?Z98.51 - Tubal ligation status (ICD-10) H/O splenectomy (1989) ?Z90.81 - Acquired absence of spleen (ICD-10) S/P arthroscopic knee surgery ?Z98.890 - Other specified postprocedural states (ICD-10) Family History (Updated 06/16/24 @ 10:21 by Hilda Reyes RN) Mother Varicose veins of bilateral lower extremities with pain Father Family history of myocardial infarction Other Cancer Family history of DVT Family history of cancer Social History (Updated 05/01/24 @ 08:31 by Francesca Zavala NP) Within the past year, how often did you have a drink containing alcohol: never Score interpretation: A score less than 3 is consistent with normal alcohol consumption. 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 Highest level of school completed/degree received: some college, no degree Little interest or pleasure in doing things: not at all Feeling down, depressed, or hopeless: not at all Meds Home Medications and Allergies Home Medications ?Medication ?Instructions ?Recorded ?Confirmed ?Type biotin 5 mg capsule 5 mg PO DAILY 05/01/24 08/17/24 History cholecalciferol (vitamin D3) 125 125 mcg PO DAILY 05/01/24 08/17/24 History mcg (5,000 unit) capsule cranberry 500 mg capsule 500 mg PO DAILY 05/01/24 08/17/24 History d-mannose 500 mg capsule mg PO 05/01/24 History estradiol 0.01% (0.1 mg/gram) 0.5 appful vaginal .twice a week 05/01/24 08/17/24 History vaginal cream loratadine 10 mg capsule 10 mg PO DAILY 05/01/24 08/17/24 History aspirin 81 mg tablet,delayed 81 mg PO DAILY 08/17/24 08/17/24 History release (Adult Low Dose Aspirin) Allergies Allergy/AdvReac Type Severity Reaction Status Date / Time codeine AdvReac Nausea Verified 05/01/24 08:26 Exam Narrative Exam Narrative: Patient presents with bruising on right hip, right side of head, and right elbow after fall last night. Patient states that she had an episode of syncope with loss of memory for a number of hours around 5:30 PM. Woke up around 2 AM with nausea. Blanco Michel MD personally performed the services described in this documentation, as scribed by Nichole Wesley RDMS in my presence and it is both accurate and complete. Nichole Michel RDMS, am scribing for, and in the presence of, Dr. Blanco Sullivan and in the presence of the patient. 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 Blanco Michel MD personally performed the services described in this documentation, as scribed by Nichole Wesley RDMS in my presence and it is both accurate and complete. Nichole Michel RDMS, am scribing for, and in the presence of, Dr. Blanco Sullivan and in the presence of the patient. Assessment and Plan Assessment and Plan (1) Phlebitis and thrombophlebitis of superficial vessels of left lower extremity: Plan Plan is for patient to return for sclerotherapy of spider veins and will head over to the ER to be evaluated for fall incident. Blanco Michel MD personally performed the services described in this documentation, as scribed by Nichole Wesley RDMS in my presence and it is both accurate and complete. Nichole Michel RDMS, am scribing for, and in the presence of, Dr. Blanco Sullivan and in the presence of the patient.
--- NOTE | 2024-08-17 15:46 | P.DS_ITS ---
Discharge Plan Discharge Disposition: Home, Self-Care Outpatient Diagnostics: VC INJ Sclerosing SOLMULT Vein (Routine) Timeframe: 2 Weeks Facility: [facility] - Location: [facility] Ordered By: Blanco Sullivan Print Language: Surinamese Discharge Date/Time: 08/17/24 15:47
== END 2024-08-17 15:47 | disposition home or self-care (01) ==
PROVIDERS: PCP Family Medicine; Visit Provider Radiology Diagnostic Radiology
DX: I80.02 Phlebitis and thrombophlebitis of superficial vessels of left lower extremity (principal)
CPT/HCPCS: 93971; G0463

== ENCOUNTER 2024-08-17 12:10 | Emergency (ER) | payer MEDICARE, OTHER, SELFPAY ==
[2024-08-17] VITALS (27 sets, daily range): BP systolic 134–169; BP diastolic 62–98; PULSE 64–87; TEMP 37.1; O2SAT 93–100; BMI 31.5
--- NOTE | 2024-08-17 12:29 | PC.NURSE ---
large bruise to right elbow, ROM wnl
--- NOTE | 2024-08-17 12:30 | PC.NURSE ---
large bruise to lower right hip, pt able to ambulate with walker
--- NOTE | 2024-08-17 12:31 | ECG_ITS ---
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
--- NOTE | 2024-08-17 12:32 | ED_ITS ---
HPI HPI - General Adult General Chief complaint: Fall Stated complaint: HEAD INJURY - 08/16/2024 Time Seen by Provider: 08/17/24 12:14 Source: patient Mode of arrival: walk-in History of Present Illness HPI narrative: 79-year-old female presented for a syncopal episode where when she passed out she fell and she hit the right side of her head and the right elbow and the right hip. She has noticed bruising at the elbow and the hip and a lump on her scalp. She states she got weak during the middle of the night when she got up to go to the bathroom but she did not pass out then. There were no other syncopal episodes other than the original 1 which happened about 6 PM. No palpitations fever vomiting or diarrhea. Related Data Home Medications ?Medication ?Instructions ?Recorded ?Confirmed biotin 5 mg capsule 5 mg PO DAILY 05/01/24 08/17/24 cholecalciferol (vitamin D3) 125 125 mcg PO DAILY 05/01/24 08/17/24 mcg (5,000 unit) capsule cranberry 500 mg capsule 500 mg PO DAILY 05/01/24 08/17/24 d-mannose 500 mg capsule mg PO 05/01/24 estradiol 0.01% (0.1 mg/gram) 0.5 appful vaginal .twice a week 05/01/24 08/17/24 vaginal cream loratadine 10 mg capsule 10 mg PO DAILY 05/01/24 08/17/24 aspirin 81 mg tablet,delayed 81 mg PO DAILY 08/17/24 08/17/24 release (Adult Low Dose Aspirin) Allergies Allergy/AdvReac Type Severity Reaction Status Date / Time codeine AdvReac Nausea Verified 05/01/24 08:26 Opioid HPI Opioid Management Most Recent Opioid Data: Last Pain Scale 2 07/08/24 08:32 07/08/24 Review of Systems ROS Narrative A ten point review of systems is negative except as noted above. [facility] Medical History (Updated 08/17/24 @ 15:15 by Michael Sorensen MD) Phlebitis and thrombophlebitis of superficial vessels of right lower extremity ?I80.01 - Phlebitis and thrombophlebitis of superficial vessels of right lower extremity (ICD-10) Phlebitis and thrombophlebitis of superficial vessels of left lower extremity ?I80.02 - Phlebitis and thrombophlebitis of superficial vessels of left lower extremity (ICD-10) Pain due to varicose veins of both lower extremities ?I83.813 - Varicose veins of bilateral lower extremities with pain (ICD-10) Raynaud disease ?I73.00 - Raynaud's syndrome without gangrene (ICD-10) Arthritis ?M19.90 - Unspecified osteoarthritis, unspecified site (ICD-10) History of ITP (1989) ?Z86.2 - Personal history of diseases of the blood and blood-forming organs and certain disorders involving the immune mechanism (ICD-10) History of blood transfusion ?Z92.89 - Personal history of other medical treatment (ICD-10) Thyroid cyst ?E04.1 - Nontoxic single thyroid nodule (ICD-10) Phlebitis ?I80.9 - Phlebitis and thrombophlebitis of unspecified site (ICD-10) Varicose vein of leg ?I83.90 - Asymptomatic varicose veins of unspecified lower extremity (ICD-10) Knee pain ?M25.569 - Pain in unspecified knee (ICD-10) Seasonal allergic rhinitis ?J30.2 - Other seasonal allergic rhinitis (ICD-10) Cataracts, bilateral ?H26.9 - Unspecified cataract (ICD-10) Hyperparathyroidism ?E21.3 - Hyperparathyroidism, unspecified (ICD-10) Renal cyst ?N28.1 - Cyst of kidney, acquired (ICD-10) Osteopenia ?M85.80 - Other specified disorders of bone density and structure, unspecified site (ICD-10) Vitamin D deficiency ?E55.9 - Vitamin D deficiency, unspecified (ICD-10) Chronic UTI ?N39.0 - Urinary tract infection, site not specified (ICD-10) Genu varum of right lower extremity ?M21.161 - Varus deformity, not elsewhere classified, right knee (ICD-10) Primary osteoarthritis of right knee ?M17.11 - Unilateral primary osteoarthritis, right knee (ICD-10) Surgical History (Updated 08/04/24 @ 15:16 by Saeid Godinez) S/P sclerotherapy of varicose veins ?Z98.890 - Other specified postprocedural states (ICD-10) ?Z86.79 - Personal history of other diseases of the circulatory system (ICD- 10) S/P sclerotherapy of varicose veins ?Z98.890 - Other specified postprocedural states (ICD-10) ?Z86.79 - Personal history of other diseases of the circulatory system (ICD- 10) S/P sclerotherapy of varicose veins ?Z98.890 - Other specified postprocedural states (ICD-10) ?Z86.79 - Personal history of other diseases of the circulatory system (ICD- 10) Status post laser ablation of incompetent vein ?Z98.890 - Other specified postprocedural states (ICD-10) Status post laser ablation of incompetent vein ?Z98.890 - Other specified postprocedural states (ICD-10) Status post laser ablation of incompetent vein ?Z98.890 - Other specified postprocedural states (ICD-10) History of colonoscopy ?Z98.890 - Other specified postprocedural states (ICD-10) H/O knee surgery ?Z98.890 - Other specified postprocedural states (ICD-10) H/O breast biopsy ?Z98.890 - Other specified postprocedural states (ICD-10) History of cholecystectomy ?Z90.49 - Acquired absence of other specified parts of digestive tract (ICD- 10) H/O oophorectomy H/O parathyroidectomy ?Z98.890 - Other specified postprocedural states (ICD-10) ?Z90.89 - Acquired absence of other organs (ICD-10) History of hysterectomy ?Z90.710 - Acquired absence of both cervix and uterus (ICD-10) H/O tubal ligation ?Z98.51 - Tubal ligation status (ICD-10) H/O splenectomy (1989) ?Z90.81 - Acquired absence of spleen (ICD-10) S/P arthroscopic knee surgery ?Z98.890 - Other specified postprocedural states (ICD-10) Family History (Updated 06/16/24 @ 10:21 by Hilda Reyes RN) Mother Varicose veins of bilateral lower extremities with pain Father Family history of myocardial infarction Other Cancer Family history of DVT Family history of cancer Social History (Updated 05/01/24 @ 08:31 by Francesca Zavala NP) Within the past year, how often did you have a drink containing alcohol: never Score interpretation: A score less than 3 is consistent with normal alcohol consumption. 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 General: The patient appears well and in no apparent distress. Patient is resting comfortably on cart. Skin: Warm, dry, no pallor noted. There is no rash noted. Head: Normocephalic, hematoma present on the right scalp. Cervical spine not tender. The rest of her back is nontender as well Eye: Normal conjunctiva, no drainage Ears, Nose, Mouth, and Throat: oral mucosa is moist. Nares patent. Cardiovascular: Regular Rate and Rhythm Respiratory: Patient is in no distress, no accessory muscle use, lungs are clear to auscultation, no wheezing, rales or rhonchi Back: non-tender GI: Soft and nontender Musculoskeletal: Bruising present in the right elbow which has full range of motion with flexion and extension and pronation and supination. The shoulder and wrist are nontender and have full range of motion. She has bruising at the right hip and has good range of motion of that hip actively. The right knee is nontender. Neurological: A&O, normal speech Psychiatric: Cooperative Constitutional Vital Signs, click to edit/add: Last Vital Signs Temp 98.7 F 08/17/24 12:13 Pulse 67 08/17/24 14:50 Resp 16 08/17/24 14:50 BP 139/70 08/17/24 14:45 Pulse Ox 93 L 08/17/24 14:50 O2 Del Method Room Air 08/17/24 12:13 Course Vital Signs Vital signs: Vital Signs Temperature 98.7 F 08/17/24 12:13 Pulse Rate 87 08/17/24 12:13 Respiratory Rate 18 08/17/24 12:13 Blood Pressure 160/86 H 08/17/24 12:13 Pulse Oximetry 96 08/17/24 12:13 Oxygen Delivery Method Room Air 08/17/24 12:13 Temperature 98.7 F 08/17/24 12:13 Pulse Rate 67 08/17/24 14:50 Respiratory Rate 16 08/17/24 14:50 Blood Pressure 139/70 08/17/24 14:45 Pulse Oximetry 93 L 08/17/24 14:50 Oxygen Delivery Method Room Air 08/17/24 12:13 Medical Decision Making MDM Narrative Medical decision making narrative: CT per radiologist shows subdural hematoma with slight midline shift. CT C- spine is negative and her x-rays of the elbow and hip are negative as well. Findings were discussed thoroughly with the patient and she is requesting transfer to [facility]. I have spoken to Dr. Banks there who accepts the patient. She is stable and agreeable for transfer. Treatment diagnosis and disposition were discussed with the patient and her . Differential Diagnosis Differential Diagnosis: Head contusion, subdural hematoma, epidural hematoma, C- spine fracture Lab Data Lab results reviewed: Yes I reviewed the patient's lab results Labs: Lab Results 08/17/24 Range/Units 12:35 WBC 9.2 (4.0-11.0) 10^3/uL RBC 3.35 L (4.20-5.40) 10^6/uL Hgb 11.3 L (12.0-16.0) g/dL Hct 34.1 L (36.0-48.0) % MCV 101.8 H (81.0-99.0) fL MCH 33.7 (26.7-34.0) pg MCHC 33.1 (29.9-35.2) g/dL RDW 14.3 (11.0-15.0) % Plt Count 284 (150-450) 10^3/uL MPV 11.9 (9.5-13.5) fL Seg Neuts % (Manual) 69.0 (43.0-75.0) Lymphocytes % (Manual) 27.0 (20.5-60.0) % Monocytes % (Manual) 4.0 (1.7-12.0) % Eosinophils % (Manual) 0.0 L (0.9-7.0) % Basophils % (Manual) 0.0 L (0.2-2.0) % Neutrophils # (Manual) 6.34 (1.4-6.5) 10^3/uL Lymphocytes # (Manual) 2.48 (1.20-3.80) 10^3/uL Monocytes # (Manual) 0.36 (0.30-0.80) 10^3/uL Eosinophils # (Manual) 0.00 (0.00-0.70) 10^3/uL Basophils # (Manual) 0.00 (0.00-0.10) 10^3/uL Anisocytosis 1+ Sodium 143 (136-145) mmol/L Potassium 3.8 (3.5-5.1) mmol/L Chloride 107 (98-107) mmol/L Carbon Dioxide 26.3 (21.0-32.0) mmol/L Anion Gap 13.5 BUN 16.0 (7.0-18.0) mg/dL Creatinine 0.98 (0.55-1.02) mg/dL Est GFR ( Amer) >60 (>=60 mL/min/1.73m^2) Est GFR (Non-Af Amer) 55 L (>=60 mL/min/1.73m^2) BUN/Creatinine Ratio 16.3 Glucose 129 H (74-106) mg/dL Calcium 8.8 (8.5-10.1) mg/dL Troponin I High Sens 8.2 (4.0-51.3) pg/mL Imaging Data CT scan - head: Radiologist's impression: ITS Impressions Head CT 08/17/24 13:04 IMPRESSION: 1. No acute cervical spine fracture. 2. Straightening of the cervical spine, likely positional or related to muscle spasm. 3. Multilevel degenerative disc disease of the cervical spine that is most pronounced at C4-C5 and C5-C6. 4. Uncovertebral and facet joint osteoarthritis contribute to bilateral neural foraminal narrowing from C3-C4 through C5-C6. 5. Carotid artery atherosclerosis. 6. Tiny subcentimeter hypoattenuating thyroid nodules as well as a small right thyroid calcification. Electronically authenticated by: ANTWON HAJI Date: 08/17/2024 14:02 Elbow X-Ray 08/17/24 13:12 IMPRESSION: 1. Mild right elbow soft tissue swelling without discrete acute displaced fracture or dislocation. 2. No right elbow effusion. Electronically authenticated by: ANTWON HAJI Date: 08/17/2024 14:24 Hip X-Ray 08/17/24 13:12 IMPRESSION: 1. No acute bone abnormality. Minimal degenerative changes. Electronically authenticated by: DARIO BESS Date: 08/17/2024 14:[address] 08/17/24 13:16 IMPRESSION: 1. No acute cervical spine fracture. 2. Straightening of the cervical spine, likely positional or related to muscle spasm. 3. Multilevel degenerative disc disease of the cervical spine that is most pronounced at C4-C5 and C5-C6. 4. Uncovertebral and facet joint osteoarthritis contribute to bilateral neural foraminal narrowing from C3-C4 through C5-C6. 5. Carotid artery atherosclerosis. 6. Tiny subcentimeter hypoattenuating thyroid nodules as well as a small right thyroid calcification. Electronically authenticated by: ANTWON HAJI Date: 08/17/2024 14:02 ECG Data Attestation: I personally reviewed and interpreted this ECG as follows: (EKG on my interpretation shows normal sinus rhythm with rate of 69 and no acute change) Critical Care Time Critical Care Time Critical Care Time: Yes Total Critical Care Time: 40 Attestation: Due to the high probability of sudden and clinically significant deterioration in the patient's condition he/she required the highest level of my preparedness to intervene urgently I provided critical care time including documentation time, medication orders and management, reevaluation, vital sign assessment, ordering and reviewing of lab tests, ordering and reviewing of x-ray studies, and admission orders. Aggregate critical care time is 40 minutes including only time during which I was engaged in work directly related to his/her care and did not include time spent treating other patients simultaneously. Discharge Plan Discharge Chief Complaint: Fall Clinical Impression: Subdural hematoma Patient Disposition: [facility] Time of Disposition Decision: 15:14 Discharge Location: [facility] Mode of Transportation: EMS
--- NOTE | 2024-08-17 12:33 | PC.NURSE ---
pt alert and appropriate
[2024-08-17 12:52] LABS: Hematocrit 34.1 % (36.0-48.0); Hemoglobin 11.3 g/dL (12.0-16.0); Mean Corpuscular HGB Conc 33.1 g/dL (29.9-35.2); Mean Corpuscular Hemoglobin 33.7 pg (26.7-34.0); Mean Corpuscular Volume 101.8 fL (81.0-99.0); Mean Platelet Volume 11.9 fL (9.5-13.5); Platelet Count 284 10^3/uL (150-450); Red Blood Count 3.35 10^6/uL (4.20-5.40); Red Cell Distribution Width 14.3 % (11.0-15.0); White Blood Count 9.2 10^3/uL (4.0-11.0)
--- NOTE | 2024-08-17 13:04 | CT_ITS ---
The [address] [address] Patient Name: BHAVESH MONTEIRO MRN: [id number] date: 1945 Sex: F Assigned Patient Location: ER Current Patient Location: ED.MAIN Accession/Order Number: [id number] Exam Date: 08/17/2024 12:57 Report Date: 08/17/2024 14:02 At the request of: KATHRYN MCKEON Procedure: CT head/brain wo con CT head without contrast CLINICAL: Head injury . Patient passed out last night striking wooden bench. Bump to back of head. TECHNIQUE: Contiguous transaxial images were obtained from skull base to vertex without administration of intravenous contrast. Dose reduction: mA and/or kV are were adjusted by automated exposure control software based upon patients height and weight. FINDINGS: Note that there is beam hardening artifact at the posterior fossa limiting evaluation. There is right frontotemporoparietal scalp soft tissue swelling/hematoma. No discrete acute calvarial fracture is appreciated. The visualized globes and orbits are grossly normal. Visualized paranasal sinuses are clear. Bilateral mastoid air cells are clear. There is an acute right hemispheric extra-axial hemorrhage (subdural hematoma) measuring up to 1.3 cm in thickness. There is a somewhat convex appearance at the right frontotemporal region at its thickest portion. There is resultant local mass effect with sulcal effacement and approximately 3 mm of right to left midline shift. There may be minimal partial effacement of the right lateral ventricle as compared to the left lateral ventricle. There is mild periventricular white matter low attenuation, most consistent with chronic small vessel ischemic disease. There is no acute large territory ischemia. There is intracranial atherosclerosis. IMPRESSION : 1. Acute right hemispheric extra-axial hemorrhage (subdural hematoma) measuring up to 1.3 cm in thickness. There is a somewhat convex appearance at the right frontotemporal region is thickest portion. There is resultant local mass effect with sulcal effacement. There is also minimal partial effacement of right lateral ventricle as well as approximately 3 mm of jqzyj-dj-uhai midline shift. 2. Right frontotemporoparietal scalp soft tissue swelling/hematoma. 3. Mild chronic small vessel ischemic disease. I discussed critical findings with Dr. Mckeon in the emergency department at 1:56 PM on 08/17/2024. CT cervical spine CLINICAL: Head injury . TECHNIQUE: Contiguous transaxial images obtained from skullbase through cervical spine without administration of intravenous contrast. Coronal and sagittal reformations were obtained. Dose reduction: mA and/or kV are were adjusted by automated exposure control software based upon patients height and weight. FINDINGS: There is straightening of the cervical spine with loss of normal cervical lordosis. There is also mild dextrocurvature of the cervical spine. There is no prevertebral soft tissue swelling or acute cervical spine fracture. There is multilevel degenerative disc disease of the cervical spine, most pronounced at C4-C5 and C5-C6. There is minimal retrolisthesis of C5 on C6. There are tiny posterior disc-aspect complexes at C4-C5 and C5-C6. There is uncovertebral joint osteoarthritis that is most pronounced from C3-C4 through C5-C6. There is also mild multilevel and bilateral facet joint osteoarthritis. There is bilateral C3-C4 through C5-C6 neural foraminal narrowing. There is atlantodental articulation osteoarthritis. There is carotid artery atherosclerosis. There are several tiny hypoattenuating thyroid nodules as well as a small right thyroid calcification. CT/CT head/brain wo con IMPRESSION: 1. No acute cervical spine fracture. 2. Straightening of the cervical spine, likely positional or related to muscle spasm. 3. Multilevel degenerative disc disease of the cervical spine that is most pronounced at C4-C5 and C5-C6. 4. Uncovertebral and facet joint osteoarthritis contribute to bilateral neural foraminal narrowing from C3-C4 through C5-C6. 5. Carotid artery atherosclerosis. 6. Tiny subcentimeter hypoattenuating thyroid nodules as well as a small right thyroid calcification. Electronically authenticated by: ANTWON HAJI Date: 08/17/2024 14:02
[2024-08-17 13:08] LABS: Segmented Neut Absolute Manual 6.34 10^3/uL (1.4-6.5)
[2024-08-17 13:09] LABS: Anisocytosis 1+; Lymphocytes Absolute Manual 2.48 10^3/uL (1.20-3.80); Monocytes Absolute Manual 0.36 10^3/uL (0.30-0.80)
--- NOTE | 2024-08-17 13:12 | XR_ITS ---
The [address] [address] Patient Name: BHAVESH MONTEIRO MRN: [id number] date: 1945 Sex: F Assigned Patient Location: ER Current Patient Location: ER Accession/Order Number: [id number] Exam Date: 08/17/2024 13:04 Report Date: 08/17/2024 14:33 At the request of: KATHRYN MCKEON Procedure: XR hip RT min 2V PROCEDURE: XR hip RT min 2V HISTORY: fall COMPARISON: None. FINDINGS: BONES:No fracture, acute abnormality, or significant arthropathy. SOFT TISSUES:No visible soft tissue swelling. EFFUSION:None visible. OTHER: Negative. XR/XR hip RT min 2V IMPRESSION: 1. No acute bone abnormality. Minimal degenerative changes. Electronically authenticated by: DARIO BESS Date: 08/17/2024 14:33
--- NOTE | 2024-08-17 13:12 | XR_ITS ---
The [address] [address] Patient Name: BHAVESH MONTEIRO MRN: [id number] date: 1945 Sex: F Assigned Patient Location: ER Current Patient Location: ER Accession/Order Number: [id number] Exam Date: 08/17/2024 13:04 Report Date: 08/17/2024 14:24 At the request of: KATHRYN MCKEON Procedure: XR elbow RT min 3V EXAM: XR elbow RT min 3V HISTORY: Fall. Patient passed out last night striking wooden bench. COMPARISON: None. TECHNIQUE: 3 views right elbow. FINDINGS: There is no acute displaced fracture or dislocation of the right elbow. Joint spaces are normal. There is no right elbow effusion. There is mild soft tissue swelling at the right elbow. XR/XR elbow RT min 3V IMPRESSION: 1. Mild right elbow soft tissue swelling without discrete acute displaced fracture or dislocation. 2. No right elbow effusion. Electronically authenticated by: ANTWON HAJI Date: 08/17/2024 14:24
[2024-08-17 13:14] LABS: Anion Gap 13.5; BUN Creatinine Ratio 16.3; Calcium 8.8 mg/dL (8.5-10.1); Carbon Dioxide 26.3 mmol/L (21.0-32.0); Chloride 107 mmol/L (98-107); Estimated GFR (African America >60 (>=60 mL/min/1.73m^2); Estimated GFR (Non-African Ame 55 (>=60 mL/min/1.73m^2); Glucose 129 mg/dL (74-106); Potassium 3.8 mmol/L (3.5-5.1); Sodium 143 mmol/L (136-145); Troponin I High Sensitivity 8.2 pg/mL (4.0-51.3)
--- NOTE | 2024-08-17 13:16 | CT_ITS ---
The [address] [address] Patient Name: BHAVESH MONTEIRO MRN: [id number] date: 1945 Sex: F Assigned Patient Location: ER Current Patient Location: ED.MAIN Accession/Order Number: [id number] Exam Date: 08/17/2024 13:12 Report Date: 08/17/2024 14:02 At the request of: KATHRYN MCKEON Procedure: CT cervical spine wo con CT head without contrast CLINICAL: Head injury . Patient passed out last night striking wooden bench. Bump to back of head. TECHNIQUE: Contiguous transaxial images were obtained from skull base to vertex without administration of intravenous contrast. Dose reduction: mA and/or kV are were adjusted by automated exposure control software based upon patients height and weight. FINDINGS: Note that there is beam hardening artifact at the posterior fossa limiting evaluation. There is right frontotemporoparietal scalp soft tissue swelling/hematoma. No discrete acute calvarial fracture is appreciated. The visualized globes and orbits are grossly normal. Visualized paranasal sinuses are clear. Bilateral mastoid air cells are clear. There is an acute right hemispheric extra-axial hemorrhage (subdural hematoma) measuring up to 1.3 cm in thickness. There is a somewhat convex appearance at the right frontotemporal region at its thickest portion. There is resultant local mass effect with sulcal effacement and approximately 3 mm of right to left midline shift. There may be minimal partial effacement of the right lateral ventricle as compared to the left lateral ventricle. There is mild periventricular white matter low attenuation, most consistent with chronic small vessel ischemic disease. There is no acute large territory ischemia. There is intracranial atherosclerosis. IMPRESSION : 1. Acute right hemispheric extra-axial hemorrhage (subdural hematoma) measuring up to 1.3 cm in thickness. There is a somewhat convex appearance at the right frontotemporal region is thickest portion. There is resultant local mass effect with sulcal effacement. There is also minimal partial effacement of right lateral ventricle as well as approximately 3 mm of szqbj-ys-jocq midline shift. 2. Right frontotemporoparietal scalp soft tissue swelling/hematoma. 3. Mild chronic small vessel ischemic disease. I discussed critical findings with Dr. Mckeon in the emergency department at 1:56 PM on 08/17/2024. CT cervical spine CLINICAL: Head injury . TECHNIQUE: Contiguous transaxial images obtained from skullbase through cervical spine without administration of intravenous contrast. Coronal and sagittal reformations were obtained. Dose reduction: mA and/or kV are were adjusted by automated exposure control software based upon patients height and weight. FINDINGS: There is straightening of the cervical spine with loss of normal cervical lordosis. There is also mild dextrocurvature of the cervical spine. There is no prevertebral soft tissue swelling or acute cervical spine fracture. There is multilevel degenerative disc disease of the cervical spine, most pronounced at C4-C5 and C5-C6. There is minimal retrolisthesis of C5 on C6. There are tiny posterior disc-aspect complexes at C4-C5 and C5-C6. There is uncovertebral joint osteoarthritis that is most pronounced from C3-C4 through C5-C6. There is also mild multilevel and bilateral facet joint osteoarthritis. There is bilateral C3-C4 through C5-C6 neural foraminal narrowing. There is atlantodental articulation osteoarthritis. There is carotid artery atherosclerosis. There are several tiny hypoattenuating thyroid nodules as well as a small right thyroid calcification. CT/CT cervical spine wo con IMPRESSION: 1. No acute cervical spine fracture. 2. Straightening of the cervical spine, likely positional or related to muscle spasm. 3. Multilevel degenerative disc disease of the cervical spine that is most pronounced at C4-C5 and C5-C6. 4. Uncovertebral and facet joint osteoarthritis contribute to bilateral neural foraminal narrowing from C3-C4 through C5-C6. 5. Carotid artery atherosclerosis. 6. Tiny subcentimeter hypoattenuating thyroid nodules as well as a small right thyroid calcification. Electronically authenticated by: ANTWON HAJI Date: 08/17/2024 14:02
== END 2024-08-17 16:00 | disposition short-term general hospital (02) ==
PROVIDERS: Emergency Provider Emergency Medicine; PCP Family Medicine
DX: S06.5XAA Traumatic subdural hemorrhage with loss of consciousness status unknown, initial encounter (principal); I80.02 Phlebitis and thrombophlebitis of superficial vessels of left lower extremity; Z90.49 Acquired absence of other specified parts of digestive tract; Z90.710 Acquired absence of both cervix and uterus; Z98.51 Tubal ligation status; Z90.81 Acquired absence of spleen; M50.30 Other cervical disc degeneration, unspecified cervical region; W19.XXXA Unspecified fall, initial encounter
CPT/HCPCS: 36415; 70450; 72125; 73080; 73502; 80048; 84484; 85007; 85027; 93005; 93971; 99285; G0463

== ENCOUNTER 2025-02-10 14:34 | Outpatient (OUT) | payer MEDICARE, OTHER, SELFPAY ==
[2025-02-10 11:20] LABS: Hematocrit 38.0 % (36.0-48.0); Hemoglobin 12.8 g/dL (12.0-16.0); Immature Granulocytes Abs Auto 0.01 10^3/uL (0.00-0.03); Immature Granulocytes Pct Auto 0.2 % (0.0-0.5); Lymphocytes Absolute Auto 2.5 10^3/uL (1.2-3.8); Mean Corpuscular HGB Conc 33.7 g/dL (29.9-35.2); Mean Corpuscular Hemoglobin 34.3 pg (26.7-34.0); Mean Corpuscular Volume 101.9 fL (81.0-99.0); Platelet Count 297 10^3/uL (150-450); Red Blood Count 3.73 10^6/uL (4.20-5.40); White Blood Count 5.0 10^3/uL (4.0-11.0)
[2025-02-10 11:24] LABS: Glucose Urine UA NEGATIVE (NEGATIVE)
[2025-02-10 12:02] LABS: Alanine Aminotransferase 50 U/L (14-59); Albumin Globulin Ratio 0.7; Albumin Level 3.0 g/dL (3.4-5.0); Alkaline Phosphatase 265 U/L (46-116); Anion Gap 7.5; Aspartate Amino Transferase 50 U/L (15-37); Blood Urea Nitrogen 23.0 mg/dL (7.0-18.0); Calcium 9.2 mg/dL (8.5-10.1); Carbon Dioxide 33.4 mmol/L (21.0-32.0); Chloride 103 mmol/L (98-107); Estimated GFR (African America >60 (>=60 mL/min/1.73m^2); Estimated GFR (Non-African Ame >60 (>=60 mL/min/1.73m^2); Globulin 4.6 g/dL; Glucose 90 mg/dL (74-106); Potassium 3.9 mmol/L (3.5-5.1); Sodium 140 mmol/L (136-145); Total Protein 7.6 g/dL (6.4-8.2)
== END 2025-02-10 14:35 | disposition home or self-care (01) ==
LOC: LAB 02-11 14:34
PROVIDERS: PCP Family Medicine; Visit Provider Student in an Organized Health Care Education/Training Program
DX: Z01.810 Encounter for preprocedural cardiovascular examination (principal); Z01.811 Encounter for preprocedural respiratory examination; Z01.812 Encounter for preprocedural laboratory examination; M17.11 Unilateral primary osteoarthritis, right knee
CPT/HCPCS: 36415; 80053; 81003; 83036; 85025; 87081

== ENCOUNTER 2025-02-17 10:55 | Outpatient (OUT) | payer MEDICARE, OTHER, SELFPAY ==
--- NOTE | 2025-02-17 11:00 | MM_ITS ---
Patient Name: BHAVESH MONTEIRO MR#: [id number] : 1945 Exam Date: 02/17/2025 Ordering Doctor: DR HARLAN KNOWLES M.D. RADIOLOGY REPORT PROCEDURE: MM TOMOSYNTHESIS SCREENING BI COMPARISON: MM TOMOSYNTHESIS SCREENING BI, 02/12/2024. MG MAMM SCREEN HAYDEE W CAD, 11/01/2016. MG MAMM HAYDEE SCRN W CAD DIG, 05/23/2015. INDICATIONS: Screening Calculator Name NCI Breast Cancer Risk Assessment Tool 5 Year Breast Cancer Risk Not Reported. Lifetime Breast Cancer Risk Not Reported. Personal Breast Cancer No Personal Ovarian Cancer No Treatments None Family Cancers None LOCATION: [facility] BREAST COMPOSITION: There are scattered areas of fibroglandular density. FINDINGS: DIAGNOSTIC CATEGORY 1--NEGATIVE. RIGHT BREAST: No significant suspicious finding. LEFT BREAST: No significant suspicious finding. RECOMMENDATIONS: ROUTINE MAMMOGRAM AND CLINICAL EVALUATION IN 12 MONTHS. PLEASE NOTE: A NORMAL MAMMOGRAM DOES NOT EXCLUDE THE POSSIBILITY OF BREAST CANCER. A CLINICALLY SUSPICIOUS PALPABLE LUMP SHOULD BE BIOPSIED. Dictated by: Davion Dixon DO on 02/17/2025 at 15:43 Approved by: Davion Dixon DO on 02/17/2025 at 15:45
== END 2025-02-17 10:56 | disposition home or self-care (01) ==
LOC: MAMMO 10:56
PROVIDERS: PCP Family Medicine; Visit Provider Family Medicine
DX: Z12.31 Encounter for screening mammogram for malignant neoplasm of breast (principal)
CPT/HCPCS: 77063; 77067

== ENCOUNTER 2025-03-08 13:53 | Outpatient (RCR) | payer MEDICARE, OTHER, SELFPAY | END 2025-06-04 09:36 | disposition home or self-care (01) | LOC: PT 13:53 | PROVIDERS: PCP Family Medicine; Visit Provider Student in an Organized Health Care Education/Training Program | DX: M17.11 Unilateral primary osteoarthritis, right knee (principal); M25.561 Pain in right knee | CPT/HCPCS: 97010; 97110; 97112; 97140; 97161; 97530; G0283 ==

== ENCOUNTER 2025-03-31 14:43 | Emergency (ER) | payer MEDICARE, OTHER, SELFPAY ==
--- OUTSIDE RECORDS SUMMARY | 2025-03-04 07:00 | XMS_ITS ---
Author Organization [facility] Address [address] [place] [address] Care Team Providers Care Surface Supervisor Name Role Phone Blanco Morgan Unavailable [phone] Johny Perdomo Unavailable [phone] REASON FOR VISIT RIGHT TOTAL KNEE ARTHROPLASTY-VISIONEER Encounters Encounter Location Date Provider Diagnosis [facility] [address] [place], [place] [id number] 03/04/2025 Johny Perdomo Unilateral primary osteoarthritis, right knee M17.11 Assessments Encounter Date Diagnosis (ICD Code) Assessment Notes Treatment Notes Treatment Clinical Notes Section Notes 03/04/2025 Unilateral primary osteoarthritis, right knee (ICD-10 - M17.11) Plan Of Treatment Next Appt Details Provider Name:Johny james, 04/19/2025 02:00:00 PM, [address] , [place], [address], Progress Notes * MIKAYLA MONTEIROOB:1945 (79 yo F)Acc No.[id number]:03/04/2025 Patient: BHAVESH CURRY Provider: Denae Perdomo DO :1945 A ge:79 Y S ex:Female Date:03/04/2025 Address:[address] [place] [address] , [place], [id number] * Images: * Electronic signature of Keiry Perdomo DO on 03/31/2025 at 02:50 PM EDT Sign off status: Pending * Provider: Denae Perdomo DO Date: 0 03/04/2025 Generated for Printi ng/Fabhumig/eTransmitting on: 0 03/31/2025 02:50 PM EDT
--- OUTSIDE RECORDS SUMMARY | 2025-03-04 07:00 | XMS_ITS ---
Author Organization [facility] Address [address] [place] [address] Care Team Providers Care Sales Market Leader Name Role Phone Blanco Morgan Unavailable [phone] Johny Perdomo Unavailable [phone] Allergies Allergen (clinical drug ingredient) Drug/Non Drug Allergy documented on EMR Reaction Allergy Type Onset Date Status codeine codeine nausea Drug Allergy Active REASON FOR VISIT virtual h and p right total knee Medications Medication SIG (Take, Route, Fr equency, Duration) Notes Start Date End Date Status Tylenol Active Biotin Active Vitamin D3 Active estradiol Not-Taking Mary Allergy Not- Taking Claritin Active Estrace Active Vitamin C Not-Taking Social History Tobacco Use: Social History Observation Description Date Details (start date - stop date) Never Smoker NA - NA AUDIT-C (Standard) Question Answer Notes Did you have a drink containing alcohol in the p ast year? 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 We did discuss total knee arthroplasty in detail. At this point we could proceed for total knee arthroplasty however she will need to have clearance per her neurologist. . Will plan for right total knee arthroplasty with [facility] Plan Of Treatment Treatment Notes Assessment Notes Other Notes: I had a rustam lamar discussion today with the patient regarding her right knee osteoarthritis. We did discuss total knee arthroplasty in detail. At this point we could proceed for total knee arthroplasty however she will need to have clearance per her neurologist. . Will plan for right total knee arthroplasty with [facility] Next Appt Details Provider Name:Johny james, 04/19/2025 02:00:00 PM, [address] , [place], [address], Progress Notes * MIKAYLA MONTEIROOB:1945 (79 yo F)Acc No.[id number]:03/04/2025 Patient: BHAVESH CURRY Provider: Denae Perdomo DO :1945 A ge:79 Y S ex:Female Date:03/04/2025 Address:[address] [place], [place] [id number] Subjective: * Chief Complaints: * 1 . Virtual h and p right total knee. * HPI: G eneral Info per Patient Report: Have you seen another doctor in this practice? N o. S esther affected is R ight. J oint or body part affected is k nee. P ain occurred c hronic. W ork related: N o. M otor vehicle accident: N o. T hird constitution party responsibility: N o. Q uality of pain is m oderate. T ype of pain: s harp. H ave you been seen by a Dentist in the last year? Y es. D o you have any dental problems? N o.? G eneral Follow Up Information: Patient is a 79-year-old female presents today for right total knee arthroplasty consultation. She was booked about a year ago however had some medical complications including a brain bleed which required intervention. She now presents today for surgical intervention for right total knee arthroplasty. We have discussed risk and benefits in the past. She has had no change in her symptoms and she is still having considerable pain. She is no longer on chronic antibiotics for UTI. She also has varicose veins that have been addressed. * ROS: C onstitutional: Fever/Chills N o. F ever No. M usculoskeletal: Joint pain Y es. J oint Weakness Y es. J oint Swelling Y es. * Medical History: K idney trouble, Drug Allergies, Blood Clots:. * Surgical History: S plenectomy 09/1989, Knee surgery , Parathyroid 2017. * Social History: E xercise regularly D o you exercise? N o. W hat is your place of residence? W here do you live? P rivate home. A YOUNG-C (Standard) D id you have a drink containing alcohol in the past year? N o, P oints 0 , I nterpretation N egative. T obacco Control (Standard) T obacco use: N onsmoker. * Medications: T aking Claritin , Taking Estrace , Taking Tylenol , Taking Biotin , Taking Vitamin D3 , Not-Taking/PRN estradiol , Not-Taking/PRN Mary Allergy , Not-Taking/PRN Vitamin C , Medication List reviewed and reconciled with the patient * Allergies: C odeine: Nausea. Objective: * Vitals: H t: 5'6 , Wt: 187 lbs, BMI:30.18. * Examination: G eneral examination: R ight lower extremity:Skin is intact. There is no effusion. Patient has a passively correctable valgus deformity of about 7 degrees. She has a range of motion of about 0-1 20. Her motor and sensory exam is intact without deficit. 2+ DP pulse. Assessment: * Assessment: 1. U nilateral primary osteoarthritis, right knee - M17.11 (Primary) 2 . G enu varum of right lower extremity - M21.161 Plan: * Treatment: Forms: * Images: * Electronic signature of Keiry Perdomo , DO on 03/31/2025 at 02:51 PM EDT Sign off status: Pending * Provider: Denae Perdomo, DO Date: 0 03/04/2025 Generated for Tess gore/Larry/Joselinitting on: 0 03/31/2025 02:51 PM EDT History and Physical Notes * HPI (History of Present Illness) Category Sub-Category Detail Notes Category Not es General Follow Up Information Patient is a 79-year -old female presents today for right total knee arthroplasty consultation. She was booked about a year ago however had some medical complications including a brain bleed which required intervention. She now presents today for surgical intervention for right total knee arthroplasty. We have discussed risk and benefits in the past. She has had no change in her symptoms and she is still having considerable pain. She is no longer on chronic antibiotics for UTI. She also has varicose veins that have been addressed. General Info per Patient Report Side affected is Right Joint or body part affected is knee Pain occurred chronic Work related: No Motor vehicle accident: No Quality of pain is moderate Type of pain: sharp Have you seen another doctor in this pra ctice? No Third constitution party responsibility: No Have you been seen by a Dentist in the l ast year? Yes Do you have any dental problems? No Examination Category Sub-Category Detail Notes Category Not es General examination Right lo wer extremity:Skin is intact. There is no effusion. Patient has a passively correctable valgus deformity of about 7 degrees. She has a range of motion of about 0-1 20. Her motor and sensory exam is intact without deficit. 2+ DP pulse.
--- OUTSIDE RECORDS SUMMARY | 2025-03-16 06:40 | XMS_ITS ---
Author Organization [facility] Address [address] [place] [address] Care Team Providers Care Digital Community Manager Name Role Phone Blanco Morgan Unavailable [phone] PerdomoJohny willis Unavailable [phone] REASON FOR VISIT 1ST POST OP RIGHT TOTAL KNEE [facility] 03/04, Right knee pain Medications Medication SIG (Take, Route, Frequency, Duration) Notes Start Date End Date Status Vitamin C Not-Taking acetaminophen-hydrocodon e 325 mg-5 mg 1 tab(s) orally every 6 hours for 7 days 03/16/2025 03/23/2025 Active Adult Aspirin Regimen 81 mg 1 tab(s) orally 2 TIMES A DAY for 30 days 03/04/2025 Active ondansetron 4 mg 1 tab(s) orally 3 times a day as needed for 7 days 03/04/2025 Active Colace sodium 100 mg 1 cap(s) orally 2 times a day for 14 days 03/04/2025 04/01/2025 Active Biotin Active Tylenol Active estradiol Not-Taking Vitamin D3 Active Mary Allergy Not- Taking Estrace Active Claritin Active Encounters Encounter Location Date Provider Diagnosis [facility] [address] [place] [id number] 03/16/2025 Johny Perdomo Aftercare following joint replacement surgery Z47.1 and History of total right knee replacement Z96.651 Assessments Encounter Date Diagnosis (ICD Code) Assessment Notes Treatment Notes Treatment Clinical Notes Section Notes 03/16/2025 Aftercare following joint replacement surgery (ICD-10 - Z47.1) Status post right total knee arthroplasty 03/16/2025 History of total right knee replacement (ICD-10 - Z96.651) Status post right total knee arthroplasty 03/16/2025 Other Overall Damaso is doing well today in regards to her right total knee arthroplasty. Recommend continued physical therapy. Range of motion encouraged. See her back in the office in 1 month with repeat x-rays. Status post right total knee arthroplasty Plan Of Treatment Medication Medication Name Sig Start Date Stop Date Notes acetaminophen-hydrocodone 32 5 mg-5 mg 1 tab(s) orally every 6 hours for 7 days 03/16/2025 03/23/2025 Treatment Notes Assessment Notes Other Overall Damaso is do ing well today in regards to her right total knee arthroplasty. Recommend continued physical therapy. Range of motion encouraged. See her back in the office in 1 month with repeat x-rays. Pending Test Test Name Order Date Knee, right 3v AP, Lat, [place] - [id number] 03/16/2025 Handicap parking placard 1 year 03/16/20 25 Next Appt Details Follow Up: 4 Weeks, Reason: Provider Name:Johny james, 04/19/2025 02:00:00 PM, [address] [facility], [place], [address], Progress Notes * MIKAYLA MONTEIROOB:1945 (79 yo F)Acc No.[id number]:03/16/2025 Progress Notes Patient: DAMASO CURRY Provider: Denae Perdomo DO :1945 A ge:79 Y S ex:Female Date:03/16/2025 Address:[address] [place], [place] [id number] Subjective: * Chief Complaints: * 1 . 1ST POST OP RIGHT TOTAL KNEE [facility] 03/04. 2. Right knee pain. * HPI: G eneral Follow Up Information: Patient is 79-year-old female presents today for first postop from her right total knee arthroplasty. She is 2 weeks postop today. Overall doing well. Pain is controlled. She has maintained her surgical dressings. She is having no new falls or injuries. She denies any numbness or tingling. Is going to physical therapy. * ROS: C onstitutional: Denies C hills. P M and R Intake: Denies F ever. D enies fever, chills, return. * Medical History: * Surgical History: S plenectomy 09/1989, Knee surgery , Parathyroid 2017, Right total knee arthroplasty 03/04/2025. * Medications: T aking Claritin , Taking Estrace , Taking Tylenol , Taking Biotin , Taking Vitamin D3 , Taking Adult Aspirin Regimen 81 mg delayed release tablet 1 tab(s) orally 2 TIMES A DAY , Taking Colace sodium 100 mg capsule 1 cap(s) orally 2 times a day , stop date 04/01/2025, Taking ondansetron 4 mg tablet, disintegrating 1 tab(s) orally 3 times a day as needed , Not-Taking/PRN estradiol , Not-Taking/PRN Mary Allergy , Not-Taking/PRN Vitamin C Objective: * Vitals: * Examination: G eneral examination: R ight lower extremity:Surgical dressings removed. Incision is clean dry and intact. No evidence of infection. He has range of motion of about 3 degrees to 92 degrees. Motor and sensory exam is intact without deficit. 2+ DP pulse. X -ray Imaging Studies: I reviewed 3 views of right knee in the office today demonstrates no acute fracture or dislocation. Right total knee arthroplasty components in place no evidence of periprosthetic fracture or loosening of implants. Assessment: * Assessment: 1. A ftercare following joint replacement surgery - Z47.1 (Primary) 2 . H istory of total right knee replacement - Z96.651 Status post right total knee arthroplasty. Plan: * Treatment: 2. H istory of total right knee replacement L AB: Handicap parking placard 1 year I maging: Knee, right 3v AP, Lat, [place] - [id number] 3. O thers Notes: Overall Damaso is doing well today in regards to her right total knee arthroplasty. Recommend continued physical therapy. Range of motion encouraged. See her back in the office in 1 month with repeat x-rays. * Procedure Codes: 7 [id number] X-ray Knee, 3 view * Follow Up: 4 Weeks Forms: * Images: * Electronic signature of Keiry Perdomo , on 03/31/2025 at 02:51 PM EDT Sign off status: Pending * Provider: Denae Perdomo, DO Date: 0 03/16/2025 Generated for Tess gore/Larry/eTransmitting on: 0 03/31/2025 02:51 PM EDT History and Physical Notes * HPI (History of Present Illness) Category Sub-Category Detail Notes Category Not es General Follow Up Information Patient is 79-year-o ld female presents today for first postop from her right total knee arthroplasty. She is 2 weeks postop today. Overall doing well. Pain is controlled. She has maintained her surgical dressings. She is having no new falls or injuries. She denies any numbness or tingling. Is going to physical therapy. Examination Category Sub-Category Detail Notes Category Not es General examination Right lo wer extremity:Surgical dressings removed. Incision is clean dry and intact. No evidence of infection. He has range of motion of about 3 degrees to 92 degrees. Motor and sensory exam is intact without deficit. 2+ DP pulse. X-ray Imaging Studies I revi ewed 3 views of right knee in the office today demonstrates no acute fracture or dislocation. Right total knee arthroplasty components in place no evidence of periprosthetic fracture or loosening of implants.
--- OUTSIDE RECORDS SUMMARY | 2025-03-31 14:51 | XMS_ITS | Encounter Summary ---
Author Organization [employer] Address [id number] [address] [place] [address] Care Team Providers Care Staff Rn Name Role Phone Hafsa Browning MD Primary Care Provider [phone] Encounter Details Date Type Department Care Team (Late st Contact Info) Description 06/03/2024 Telephone [facility] [address] [place] [address] Zaida Child MD [address], [facility] [address] [place] [address] Social History Tobacco Use Types Packs/Day Years Used Date Smoking Tobacco: Never Smokeless Tobacco: Never Alcohol Use Standard Drinks/Week Comments Never 0 (1 standard drink = 0.6 oz pur e alcohol) rare Hunger Screening Answer Date Recorded Within the past 12 months we worried whether our food would run out before we got money to buy more. Never True 05/28/2024 Within the past 12 months th e food we bought just didn't last and we didn't have money to get more. Never True 05/28/2024 Comments Unknown Sex and Gender Information Value Date Recorded Sex Assigned at Not on file Legal Sex Female 10:24 AM EST Gender Identity Not on file Sexual Orientation Not on file documented as of this encounter Miscellaneous Notes * Telephone Encounter - Rayne Vila - 06/03/2024 9:58 AM EST Patient was seen on 05/28 for Superficial phlebitis and thrombophlebitis and she is stating the pain is getting worse she can be reached at [phone] * Telephone Encounter - Rosanne Merrill LPN - 06/03/2024 9:58 AM EST Spoke to patient regarding her increased pain and what she describes as Little purple and red dots Patient made an appt to come to the office for evaluation. Patient agrees documented in this encounter Plan of Treatment Not on file documented as of this encounter Visit Diagnoses Not on filedocumented in this encounter Care Teams Staff Rn 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 Start Date End Date Hafsa Browning MD [address] [place] [address] PCP - General Family Medicine 06/01/21 documented as of this encounter
--- OUTSIDE RECORDS SUMMARY | 2025-03-31 14:51 | XMS_ITS | Clinical Summary ---
Author Organization [facility] Address [address], [address] [place] [address] Care Team Providers Care Lather Apprentice Name Role Phone Hafsa Browning MD Primary Care Provider [phone] Encounters Date Type Department Care Team Description 01/18/2025 2:21 PM EDT - 01/20/2025 11:59 PM EDT Hospital Encounter [facility] Radiology [address] [place] [address] Osteoarthritis of right knee, unspecified osteoarthritis type Discharge Disposition: Home or Self Care 01/18/2025 Transcribe Orders [facility] Admitting [address] [place], [place] [id number] MelissaMiya bernsteinziyad Pineda Osteoarthritis of right knee, unspecified osteoarthritis type (Primary Dx) from Last 3 Months Social History Tobacco Use Types Packs/Day Years Used Date Smoking Tobacco: Never Assessed Comments Unknown Sex and Gender Information Value Date Recorded Sex Assigned at Not on file Legal Sex Female 2:06 PM EDT Gender Identity Not on file Sexual Orientation Not on file Plan of Treatment Health Maintenance Due Date Last Done Comments Depression Screen 1959 Hepatitis C screen 1965 DTaP/Tdap/Td vaccine (1 - Tdap) 1966 DEXA (modify frequency per FRAX score) 2002 Respiratory Syncytial Virus (RSV) or age 60 yrs+ (1 - 1-dose 75+ series) 2022 Annual Wellness Visit (Medicare) 01/18/2025 Flu vaccine (#1) 02/12/2025 04/16/2024, 09/2021, 04/26/2020, Additional history exists COVID-19 Vaccine ( season) 2025 04/10/2022, 04/11/2021, 08/30/2020, Additional history exists Pneumococcal 50+ years Vaccine Completed 11/07/2017, 10/13/2017 Shingles vaccine Completed 02/15/2021, 11/30/2020 Hepatitis A vaccine Aged Out No longe r eligible based on patient's age to complete this topic Hepatitis B vaccine Aged Out No longe r eligible based on patient's age to complete this topic Hib vaccine Aged Out No longer eligi ble based on patient's age to complete this topic Meningococcal (ACWY) vaccine Aged Out No longer eligible based on patient's age to complete this topic Meningococcal B vaccine Aged Out No l onger eligible based on patient's age to complete this topic Polio vaccine Aged Out No longer elig ible based on patient's age to complete this topic Procedures Procedure Name Priority Date/Time Associated Diagnosis Comments XR KNEE RIGHT (MIN 4 VIEWS) Routine 01/18/2025 3:27 PM EDT Osteoarthritis of right knee, unspecified osteoarthritis type from Last 3 Months Results * XR KNEE RIGHT (MIN 4 VIEWS) (01/18/2025 3:27 PM EDT) Anatomical Region Laterality Modality Thigh, Knee, Leg Computed Radiog damien 01/18/2025 3:27 PM EDT Impressions 01/18/2025 5:08 PM EDT FINDINGS/IMPRESSION: 1. Kellgren-Jose Armando grade 3 osteoarthritic change right knee. 2. Grade 2 osteoarthritic change left knee. 3. Moderate right patellofemoral osteoarthritic change. 4. No joint effusion, fracture, or chondrocalcinosis. Narrative 01/18/2025 5:08 PM EDT EXAM: XR KNEE RIGHT (MIN 4 VIEWS) HISTORY: Osteoarthritis of right knee, unspecified osteoarthritis type COMPARISON: 05/07/2024 [facility] Procedure Note Isaac King Jr., MD - 01/18/2025 EXAM: XR KNEE RIGHT (MIN 4 VIEWS) HISTORY: Osteoarthritis of right knee, unspecified osteoarthritis type COMPARISON: 05/07/2024 [facility] IMPRESSION: FINDINGS/IMPRESSION: 1. Kellgren-Jose Armando grade 3 osteoarthritic change right knee. 2. Grade 2 osteoarthritic change left knee. 3. Moderate right patellofemoral osteoarthritic change. 4. No joint effusion, fracture, or chondrocalcinosis. us Johny Perdomo DO [facility] ORDERA BLES Final Result from Last 3 Months Insurance [employer] [place] Care Teams Lather Apprentice 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 Start Date End Date Hafsa Browning MD [address] [place] [phone] PCP - General Family Medicine 01/18/25
--- OUTSIDE RECORDS SUMMARY | 2025-03-31 14:51 | XMS_ITS | Encounter Summary ---
Author Organization [employer] Address [id number] [address] [place] [address] Care Team Providers Care Content Coordinator Name Role Phone Hafsa Browning MD Primary Care Provider [phone] Reason for Visit * Reason Onset Date Comments Hospital Follow-up 08/21/2024 Encounter Details Date Type Department Care Team (Late st Contact Info) Description 08/21/2024 Telephone [facility] [address] [place] [phone] [facility] Follow-up Social History Tobacco Use Types Packs/Day Years Used Date Smoking Tobacco: Never Smokeless Tobacco: Never Alcohol Use Standard Drinks/Week Comments Not Currently 0 (1 standard drink = 0.6 oz pur e alcohol) very seldom [facility] Utilities Answer Date Recorded In the past 12 months has [employer] electric, gas, oil, or water company threatened to shut off services in your home? No 08/17/2024 AUDIT-C Answer Date Recorded Q1: How often do you have a drink containing alc ohol? Monthly or less 08/17/2024 Q2: How many drinks containi ng alcohol do you have on a typical day when you are drinking? 1 or 2 08/17/2024 Q3: How often do you have si x or more drinks on one occasion? Never 08/17/2024 Overall Financial Resource Strain (CARDIA) Answe r Date Recorded How hard is it for you to pa y for the very basics like food, housing, medical care, and heating? Not hard at all 08/17/2024 PHQ-2 Answer Date Recorded Total Score 0 08/17/2024 PRAPARE - Transportation Answer Date Re corded In the past 12 months, has l ack of transportation kept you from medical appointments or from getting medications? No 09/2024 In the past 12 months, has l ack of transportation kept you from meetings, work, or from getting things needed for daily living? No 08/17/2024 Housing Instability Answer Date Recorde d Are you worried or concerned that in the next two months you may not have stable housing that you own, rent or stay in as a part of a household? No 08/17/2024 Hunger Screening Answer Date Recorded Within the past 12 months we worried whether our food would run out before we got money to buy more. Never True 08/17/2024 Within the past 12 months th e food we bought just didn't last and we didn't have money to get more. Never True 08/17/2024 Comments Unknown Sex and Gender Information Value Date Recorded Sex Assigned at Not on file Legal Sex Female 10:24 AM EST Gender Identity Not on file Sexual Orientation Not on file documented as of this encounter Miscellaneous Notes * Telephone Encounter - Ama Deutsch - 08/21/2024 7:59 AM EST Message from the 08/20/24 d/c list per MMM. Patient d/c from H. Dx Syncope and collapse and multiple injuries. It is likely to be all vasovagal/ vasodepressive syncope. Along with dehydration Sinus rhythm on telemetry no arrhythmias recorded. Both echo and carotid Doppler appear unremarkable. No recorded arrhythmias on telemetry Will make arrangement for 30 day event monitor to rule out significant arrhythmia. I still think her syncope was vasovagal along with some dehydration. Encouraged her to increase water intake and do not fast. Avoid caffeinated beverages. Okay to discharge cardiac-rodriguez. Patient to f/u 1 to 2 weeks. bvb * Telephone Encounter - Maryuri Fuentes - 08/21/2024 7:59 AM EST APPT SCHED, WAITING FOR EM ORDER documented in this encounter Plan of Treatment Not on file documented as of this encounter Goals Goal Patient Goal Type Associated Problems Recent Progress Patient-Stated? Author Safe Discharge General Yes Mya Vazquez, RN Note: Evaluation of progress towards goal: safe transition home self care with spouse and family support. documented as of this encounter Visit Diagnoses Not on filedocumented in this encounter Additional Health Concerns Assessment Noted Time PHQ-9 Depression Total Score: 0 08/17/19 25 8:21 PM EST documented as of this encounter Care Teams Content Coordinator 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 Start Date End Date Hafsa Browning MD [facility] [place] [address] PCP - General Family Medicine 06/01/21 documented as of this encounter
--- OUTSIDE RECORDS SUMMARY | 2025-03-31 14:51 | XMS_ITS | Encounter Summary ---
Author Organization [facility] Address [facility] [id number] [address] [place] [address] Care Team Providers Care Outreach Assistant Name Role Phone Hafsa Browning MD Primary Care Provider [phone] Encounter Details Date Type Department Care Team (Late st Contact Info) Description 05/29/2024 Orders Only [facility] [address] [place] [phone] Stephanie Dowell CMA Social History Tobacco Use Types Packs/Day Years [...] on file documented as of this encounter Plan of Treatment Not on file documented as of this encounter Visit Diagnoses Not on filedocumented in this encounter Care Teams Outreach Assistant 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 Start Date End Date Hafsa Browning MD [address] [place] [address] PCP - General Family Medicine 06/01/21 documented as of this encounter
--- OUTSIDE RECORDS SUMMARY | 2025-03-31 14:51 | XMS_ITS | Clinical Summary ---
Author Organization [employer] Address [facility] [id number] [address] [place] [address] Care Team Providers Care Gift Shop Assistant Name Role Phone Hafsa Browning MD Primary Care Provider [phone] Allergies Active Allergy Reactions Criticality Noted Date Comments Codeine Nausea,GI Disturbance 06/14/2021 Medications biotin 1 mg capsule Take 1 capsule by mouth in the morning. Active cholecalciferol , vitamin D3, 5,000 units tablet Take 1 tablet (5,000 Units total) by mouth in the morning. Active cranberry 500 mg capsule Take 1 mg by mouth in the morning. Active loratadine (CLARITIN) 10 mg tablet Take 1 tablet (10 mg total) by mouth daily as needed for allergies. Active estradioL (ESTRACE) 0.01 % (0.1 mg/gram) vaginal cream Insert 2 g into the vagina 2 (two) times a week. 01/15/2024 Active NON FORMULARY Take 1 each by mouth in the morning. Med Name: [place] vitamin for bladder health. Active acetaminophen (TYLENOL EXTRA STRENGTH) 500 mg tablet Take 2 tablets (1,000 mg total) by mouth every 6 (six) hours as needed for pain. Active Active Problems Problem Noted Date Diagnosed Date Vasovagal syncope 09/29/2024 Acute cystitis 09/23/2024 Asymptomatic bacteriuria 09/23/2024 Cholelithiasis 09/23/2024 Hyperparathyroidism 09/23/2024 Osteopenia 09/23/2024 Urinary urgency 09/23/2024 Vaginal atrophy 09/23/2024 Subdural hemorrhage 08/17/2024 Superficial phlebitis and th rombophlebitis of right lower extremity 05/28/2024 Assessment & Plan (06/10/2024 5:32 PM EST): Warm compresses nonsteroidal anti-inflammatory drugs leg elevation and compression therapy. We will get venous reflux ultrasound and rule out DVT as well. Assessment & Plan (05/28/2024 11:34 AM EST): Nonsteroidal anti-inflammatory drugs warm compresses leg elevation and compression therapy when possible Varicose veins of bilateral lower extremities wi th pain 05/28/2024 Assessment & Plan (06/10/2024 5:32 PM EST): Venous reflux ultrasound compression stockings leg elevation and exercise. Assessment & Plan (05/28/2024 11:35 AM EST): Compression stockings leg elevation exercise. Venous reflux ultrasound. Visual impairment 07/18/2022 Overview (07/18/2022): glasses Kidney mass 07/18/2022 Arthritis 07/18/2022 Encounters Date Type Department Care Team Description 02/25/2025 Telephone [facility] [address] [place] [phone] Cordell Ellsworth MD clearance 01/20/2025 Telephone [facility] [address] [place] [phone] Cordell Ellsworth MD from Last 3 Months Immunizations Immunization Administration Dates Next Due Influenza, Im Flucelvax (Pf) 04/16/2024 Influenza, Unspecified 04/16/2022,04/26/2020,07/2016 Pneumococcal Conjugate 13-Valent 11/07/2017,10/14 Pneumococcal Polysaccharide 10/13/2017 Zoster Vaccine Recombinant 02/15/2021,11/30/2020 Family History Medical History Relation Name Comments Multiple myeloma Father Brain Tumor Maternal Aunt Brain cancer Maternal Aunt Breast cancer Maternal Aunt Cancer Maternal Aunt Breast cancer Mother Cancer Mother Kidney cancer Mother Ovarian cancer Mother Breast cancer Niece 1 Breast cancer Niece 2 Relation Name Status Comments Father Maternal Aunt Maternal Uncle Mother Niece 1 Niece 2 Alive Social History Tobacco Use Types Packs/Day Years Used Date Smoking Tobacco: Never Smokeless Tobacco: Never Tobacco Cessation:Counseling Given: Not Answered Alcohol Use Standard Drinks/Week Comments Not Currently 0 (1 standard drink = 0.6 oz pur e alcohol) very seldom [facility] Utilities Answer Date Recorded In the past 12 months has th e electric, gas, oil, or water company threatened [...] got money to buy more. Never True 09/29/2024 Within the past 12 months th e food we bought just didn't last and we didn't have money to get more. Never True 09/29/2024 Comments Unknown Sex and Gender Information Value Date Recorded Sex Assigned at Not on file Legal Sex Female 10:24 AM EST Gender Identity Not on file Sexual Orientation Not on file Last Filed Vital Signs Vital Sign Reading Time Taken Comments Blood Pressure 140/90 09/29/2024 12:51 PM EDT Pulse 82 09/29/2024 12:51 PM EDT Temperature 36.9 C (98.5 F) 08/20/2024 7:56 AM EST Respiratory Rate 18 08/20/2024 7:59 AM EST Oxygen Saturation 98% 09/29/2024 12:51 PM EDT Inhaled Oxygen Concentration - - Weight 83.5 kg (184 lb) 10/08/2024 1:42 PM EDT Height 170.2 cm (5' 7.01 ) 10/08/2024 1:42 PM ED T Body Mass Index 28.81 10/08/2024 1:42 PM EDT Plan of Treatment Health Maintenance Due Date Last Done Comments DTaP,Tdap and Td Vaccines (1 - Tdap) 1966 Fall Risk Screening 2012 COVID-19 Vaccine (2024-2 6 season) 2025 04/10/2022, 04/11/2021, 08/30/2020, Additional history exists Influenza Vaccine 03/15/2025 04/16/2024, , 04/26/2020, Additional history exists Depression Screening 08/17/2025 08/17/2024 Tobacco Screening 09/29/2025 09/29/2024 Zoster (Shingles) Vaccine Completed 02/15/2021, Colonoscopy Discontinued 08/01/2022 Goals Goal Patient Goal Type Associated Problems Recent Progress Patient-Stated? Author Safe Discharge General Yes Mya Vazquez, RN Note: Evaluation of progress towards goal: safe transition home self care with spouse and family support. Medical Devices Not on file Procedures Procedure Name Priority Date/Time Associated Diagnosis Comments COLONOSCOPY Routine 08/01/2022 Abnormal computed tomography of large intestine Left upper quadrant abdominal pain from Last 3 Months or Most Recently Relevant to Health Maintenance Results * Colonoscopy (08/01/2022) us Benjy Huston DO GI PROCEDURE ORDERABLES Fin al Result MANUALLY TRANSCRIBED RESULTS from Last 3 Months or Most Recently Relevant to Health Maintenance Insurance [employer] Advance Directives * Full Code (Latest Code Status on File) Date Activated Date Inactivated Comments 08/17/2024 5:30 PM 08/20/2024 2:19 PM Care Teams Gift Shop Assistant 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 Start Date End Date Hafsa Browning MD [facility] [place] [address] PCP - General Family Medicine 06/01/21
--- OUTSIDE RECORDS SUMMARY | 2025-03-31 14:51 | XMS_ITS | Patient Health Record ---
Author Organization [facility] Address [address] [place] [address] Care Team Providers Care Roller Leveler Operator Name Role Phone Blanco Morgan Unavailable [phone] Johny Perdomo Unavailable [phone] Allergies Allergen (clinical drug ingredient) Drug/Non Drug Allergy documented on EMR Reaction Allergy Type Onset Date Status codeine codeine nausea Drug Allergy Active Results Component Value Reference Range Notes Hgb (Not yet reviewed by pro vider) Interpretation: Performing Lab: Notes/Report: [address] [address] Hgb 11.9 12.0-16.0 g/dL Hct 34.9 36.0-46.0 % XR Knee 1 or 2 Views Right ( Not yet reviewed by provider) Interpretation: Performing Lab: Notes/Report: Patient Name: Erin Kan EXAM: XR Knee 1 or 2 Views Right Surgery Scheduling Reviewed date:09/01/2024 09:52:10 AM Interpretation: Performing Lab: Notes/Report: Primary Insurance Company: MEDICARE Surgeon/Assist: ANDREZ/RENO ROMERO Surgery Location: [place] Surgery Date & Time: 05/11/24 @ 8 AM Surgery End Time: 12:00 Procedure: RIGHT TOTAL KNEE ARTHROPLASTY Special Equipment: KEY AND NEPHEW CUSTOM IMPLANT C-Arm: YES Diagnosis: OSTEOARTHRITIS OF RIGHT KNEE Admission Type: OP Anesthesia Type/CPNB: GENERAL Bed 23 HR Latex Allergy NO Lab Location: [place] Lab Date/Time: 05/01/24 @ 8 AM [facility] Date/T 05/01/ @ 8 AM Technician Assistant: ZOË Duarte Pre-op labs/Chest Order: CBC,BMP,UA REFL EX C&S,CXR,EKG,MRSA Had or have MRSA/Direct contact w MRSA pt/HCW NO Had dental problems/Yes-no/type: NO MRI Knee Surg.Navigate or Pl anONLY Right Reviewed date:07/13/2024 03:00:13 PM Interpretation: Performing Lab: Notes/Report: Patient Name: Erin Kan Procedure: MRI of the right knee without contrast. XR Knee Standing AP Bilatera l Reviewed date:07/13/2024 03:00:13 PM Interpretation: Performing Lab: Notes/Report: Patient Name: Erin Kan Procedure: MRI of the right knee without contrast. Surgery Scheduling Reviewed date:03/04/2025 08:40:06 AM Interpretation: Performing Lab: Notes/Report: Primary Insurance Company: MEDICARE Surgeon/Assist: ANDREZ/RENO ROMERO Surgery Location: [facility] Surgery Date & Time: 03/04/2025 @ 11:00 Hosp arrival time day of: 8:00 AM Surgery End Time: 2:00 Procedure: RIGHT TOTAL KNEE ARTHROPLASTY Special Equipment: [employer] C-Arm: YES Diagnosis: OSTEOARTHRITIS OF RIGHT KNEE Admission Type: OP Anesthesia Type/CPNB: GENERAL Bed 23 HR OBS Post-op Appointment Date: 03/16/2025 @ 10:40 Latex Allergy NO Lab Location: [place] [facility] Date/T NOT NEEDED Technician Assistant: ZOË Curry Physician: HARLAN Curry Appt Date/T 02/17/2025 Pre-op labs/Chest Order: CBC,CMP,MRSA,HGB A1C,UA,CXR,E KG Had or have MRSA/Direct contact w MRSA pt/HCW NO XR KNEE RIGHT (MIN 4 VIEWS) (Not yet reviewed by provider) Interpretation: Performing Lab: Notes/Report: EXAM: XR KNEE RIGHT (MIN 4 VIEWS) Performed at: [address] [address] Reason For Referral Reason NO PRIOR AUTH REQUIR ED MCE/MED MUTUAL...05/11...PLEASE PRECERT RIGHT TOTAL KNEE ARTHROPLASTY AT [facility] OUTPATIENT WITH 23HR OBS Diagnosis 1 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) Diagnosis 2 Unilateral primary o steoarthritis, right knee (M17.11) Referral Organization [facility] Referring Provider First Name Johny Referring Provider Last Name Andrez Referring Provider Speciality Orthopedic Surgery Referred Organization [facility] Referred Provider Johny Perdomo Referred Address [address] [place],[address],[place] Referred Provider Specialty Orthopedic S urgery Procedure 1 Arthroplasty Knee To shanell Med/Lat Compartments ([address]) General Notes Zoë Starkey 2023 11:40:32 AM >, Junie Avilez 04/27/2024 02:55:06 PM > NO PRIOR AUTH REQUIRED- MEDICARE PRIMARY. PER [employer], MEDICARE IS ACTIVE WITH BOTH PARTS A AND B COVERAGE OF 04/14/2012. SECONDARY MED MUTUAL IS ACTIVE OF 04/14/2021 PER [employer] AND FOLLOWS [facility] GUIDELINES. FAXED TO JANIA.Lalito Tricia 04/28/2024 07:17:46 AM > Referral Priority Routine Reason KELECHI......PLEASE PREC ERT RIGHT TOTAL KNEE ARTHROPLASTY AT [facility] ON 03/04 OUTPATIENT 23 HR OBS Diagnosis 1 Unilateral primary o steoarthritis, right knee (M17.11) Referral Organization [facility] Referring Provider First Name Johny Referring Provider Last Name Andrez Referring Provider Speciality Orthopedic Surgery Referred Organization [facility] Referred Provider Johny Perdomo Referred Address [address] [place], [place],[id number],[place] Referred Provider Specialty Orthopedic S urgery Procedure 1 Arthroplasty Knee To shanell Med/Lat Compartments (45999) Procedure 2 N BLOCK INJ FEM, SIN GLE (23538) Procedure 3 N BLOCK, OTHER PERIP HERAL (12132) General Notes Zoë Starkey 2024 09:59:02 AM >, Billie Mark 02/05/2025 09:00:27 AM >PER [employer], PATIENT IS ACTIVE PART A AND PART B, NO AUTH REQUIRED MA NOTIF[facility] 02/09/2025 09:16:42 AM > Referral Priority Routine Medications Medication SIG (Take, Route, Frequency, Duration) Notes Start Date End Date Status Estrace Active Claritin Active Biotin Active Tylenol Active estradiol Not-Taking Vitamin D3 Active Vitamin C Not-Taking Mary Allergy Not- Taking Adult Aspirin Regimen 81 mg 1 tab(s) orally 2 TIMES A DAY for 30 days 03/04/2025 Active ondansetron 4 mg 1 tab(s) orally 3 times a day as needed for 7 days 03/04/2025 Active Colace sodium 100 mg 1 cap(s) orally 2 times a day for 14 days 03/04/2025 04/01/2025 Active Social History Tobacco Use: Social History Observation Description Date Details (start date - stop date) Never Smoker NA - NA AUDIT-C (Standard) Question Answer Notes Did you have a drink containing alcohol in the p ast year? 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) Active confirmed Vital Signs Height 5'6 in 03/04/2025 Weight 187 lbs 03/04/2025 BMI 30.18 03/04/2025 Encounters Encounter Location Date Provider Diagnosis [facility] [address] [place], [place] [id number] 03/04/2025 Johnytae Perdomo Unilateral primary osteoarthritis, right knee M17.11 [facility] [address] [place], [place] [id number] 03/04/2025 Johnytae Perdomo Unilateral primary osteoarthritis, right knee M17.11 and Genu varum of right lower extremity M21.161 [facility] [address] [place] [address] 03/16/2025 Johnytae Perdomo Aftercare following joint replacement surgery Z47.1 and History of total right knee replacement Z96.651 [facility] [address] [place] [address] 12/30/2024 Blanco Morgan Acute pain of right knee M25.561 [facility] [address] [place] [address] 01/18/2025 Johny Perdomo Unilateral primary osteoarthritis, right knee M17.11 [facility] [address] [place] [address] 04/23/2024 Johny Perdomo Unilateral primary osteoarthritis, right knee M17.11 ; History of total right knee replacement Z96.651 and Aftercare following joint replacement surgery Z47.1 [facility] [address] [place] [address] 04/27/2024 Johny Perdomo Unilateral primary osteoarthritis, right knee M17.11 and Genu varum of right lower extremity M21.161 [facility] [address] [place] [address] 02/03/2025 Johny Lipscombews Unilateral primary osteoarthritis, right knee M17.11 ; 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 ; Encounter for pre-operative laboratory testing Z01.812 ; Encounter for pre-operative respiratory clearance Z01.811 and Pre-operative cardiovascular examination Z01.810 [facility] [address] [place] [address] 03/04/2025 Johny Andrez Aftercare following joint replacement surgery Z47.1 and History of total right knee replacement Z96.651 Assessments Encounter Date Diagnosis (ICD Code) Assessment Notes Treatment Notes Treatment Clinical Notes Section Notes 04/23/2024 Unilateral primary osteoarthritis, right knee (ICD-10 - M17.11) 04/23/2024 History of total right knee replacement (ICD-10 - Z96.651) 04/27/2024 Unilateral primary osteoarthritis, right knee (ICD-10 - M17.11) 04/27/2024 Genu varum of right lower extremity (ICD-10 - M21.161) 12/30/2024 Acute pain of right knee (ICD-10 - M25.561) 01/18/2025 Unilateral primary osteoarthritis, right knee (ICD-10 - M17.11) Right knee osteoarthritis 02/03/2025 Unilateral primary osteoarthritis, right knee (ICD-10 - M17.11) 02/03/2025 Carrier or suspected carrier of Methicillin resistant Staphylococcus aureus (ICD-10 - Z22.322) 03/04/2025 Aftercare following joint replacement surgery (ICD-10 - Z47.1) 03/04/2025 History of total right knee replacement (ICD-10 - Z96.651) 03/04/2025 Unilateral primary osteoarthritis, right knee (ICD-10 - M17.11) 03/04/2025 Unilateral primary osteoarthritis, right knee (ICD-10 - M17.11) 03/16/2025 Aftercare following joint replacement surgery (ICD-10 - Z47.1) Status post right total knee arthroplasty 03/16/2025 History of total right knee replacement (ICD-10 - Z96.651) Status post right total knee arthroplasty 03/04/2025 Genu varum of right lower extremity (ICD-10 - M21.161) 04/23/2024 Aftercare following joint replacement surgery (ICD-10 - Z47.1) 02/03/2025 Encounter for pre-operative laboratory testing (ICD-10 - Z01.812) 02/03/2025 Encounter for pre-operative respiratory clearance (ICD-10 - Z01.811) 02/03/2025 Pre-operative cardiovascular examination (ICD-10 - Z01.810) 03/04/2025 Other Notes: I had a lengthy discussion today with the patient regarding her right knee osteoarthritis. We did discuss total knee arthroplasty in detail. At this point we could proceed for total knee arthroplasty however she will need to have clearance per her neurologist. . Will plan for right total knee arthroplasty with [facility] 03/16/2025 Other Overall Erin is doing well today in regards to her right total knee arthroplasty. Recommend continued physical therapy. Range of motion encouraged. See her back in the office in 1 month with repeat x-rays. Status post right total knee arthroplasty 01/18/2025 Other I had a lengthy discussion today with the patient regarding her right knee osteoarthritis. We did discuss total knee arthroplasty in detail. At this point we could proceed for total knee arthroplasty however she will need to have clearance per her neurologist. Will start the clearance process. Will plan for right total knee arthroplasty with [facility] Right knee osteoarthritis Plan Of Treatment Pending Test Test Name Order Date Chest 2 views - 09313 03/09/2024 Knee, right 3v AP, Lat, Leach - 73035 03/16/2025 Knee, bilat 1v AP standing - 36158 03/09 Walker w/ Wheels OTS 03/09/2024 CMP 03/09/2024 CMP 02/03/2025 Walker Order OTS 04/23/2024 MRSA (Bilateral Nares) PCR 02/03/2025 MRSA (Bilateral Nares) PCR 03/09/2024 PT - Evaluate and Treat, as directed, 2 - 3 times a week x 4 - 6 weeks 02/03/2025 PT - Evaluate and Treat, as directed, 2 - 3 times a week x 4 - 6 weeks 04/23/2024 PT - Evaluate and Treat, as directed, 2 - 3 times a week x 4 - 6 weeks 03/09/2024 Handicap parking placard 1 year 03/16/20 EKG 03/09/2024 CBC with diff 03/09/2024 UA with Reflex C & S 03/09/2024 UA with Reflex C & S 02/03/2025 CBC WITH DIFFERENTIAL 02/03/2025 XR Knee 1 or 2 Views Right 03/04/2025 Hgb 03/04/2025 Hgb A1c 02/03/2025 XR KNEE RIGHT (MIN 4 VIEWS) 01/18/2025 SCC- KNEE 4 VIEW RIGHT 91270 01/18/2025 SCC- KNEE 4 VIEW RIGHT 63653 09/23/2023 Walker Order and dispense wheels with th erapist discretion 04/27/2024 MRI : Knee Right [employer] [employer] reincluding long leg films 98246 03/09/2024 Next Appt Details Provider Name:Johny james, 04/19/2025 02:00:00 PM, [address], [place], [address], Insurance Providers Payer Name Payer Address Payer Phone Subscriber Number Group Number Insured Name Patient Relationship to Insured Coverage Start Date Coverage End Date Medicare [address] [address] [place]IL[place]VARES [phone] [id number] ERIN KAN Self - patient is the insured Medical [facility] [address] [place] [address] [id number] ERIN KAN Self - patient is the insured Medical (General) History Medical History History ICD Code Kidney trouble Drug Allergies Blood Clots: Surgical History Surgery Date(Month/Year) 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
--- OUTSIDE RECORDS SUMMARY | 2025-03-31 14:51 | XMS_ITS | Encounter Summary ---
Author Organization [employer] [facility] [employer] Address [facility] [place] [id number] [address] [place] [address] Care Team Providers Care Staff Submarine Warfare Officer Name Role Phone Hafsa Browning MD Primary Care Provider [phone] Encounter Details Date Type Department Care Team (Late st Contact Info) Description 05/27/2024 Orders Only [facility] [address] [place] [phone] Stephanie Dowell CMA Social History Tobacco Use [...] on file documented as of this encounter Procedures Procedure Name Priority Date/Time Associated Diagnosis Comments VASC VENOUS DUPLEX LOWER RIGHT Routine 05/08/2024 11:01 AM EDT documented in this encounter Results * Vas venous duplex lwr single right (05/08/2024 11:01 AM EDT) Anatomical Region Laterality Modality Vascular Right Ultrasound us Not In System Ref Prov CV VASCULAR ORDERABLES Fi nal Result documented in this encounter Visit Diagnoses Not on filedocumented in this encounter Care Teams Staff Submarine Warfare Officer 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 Start Date End Date Hafsa Browning MD [address] [place] [address] PCP - General Family Medicine 06/01/21 documented as of this encounter
[2025-03-31 14:52] VITALS: BP 127/85; PULSE 75; TEMP 37.1; O2SAT 98; BMI 28.2
--- OUTSIDE RECORDS SUMMARY | 2025-03-31 14:52 | XMS_ITS | Patient Health Record ---
Author Organization [facility] [place] Address [address] [place] [address] Care Team Providers Care Cone Treater Name Role Phone Hafsa Browning Primary Care Provider Micaela Padron Unavailable [phone] Allergies No Known Allergies Reason For Referral No Information Medications Medication SIG (Take, Route, Fr equency, Duration) Notes Start Date End Date Status Macrodantin Active Estradiol Active Cranberry Active Vitamin D3 Active Biotin Active Allergy Relief Activ e Social History Tobacco Use: Social History Observation Description Date Details (start date - stop date) Never Smoker NA - NA Tobacco Control (Standard) Question Answer Notes Tobacco use: Nonsmoker Vital Signs Temperature 97.2 degrees Fahrenheit 04/09/2024 Respiratory Rate 18 /min 04/09/2024 Oximetry 94 % 04/09/2024 Height 66 in 04/09/2024 Weight 203 lbs 04/09/2024 BMI 32.76 kg/m2 04/09/2024 Encounters Encounter Location Date Provider Diagnosis [facility] ([facility]) [address] [place] [address] [place] [address] 04/09/2024 Micaela Martins Tinea unguium B35.1 Assessments Encounter Date Diagnosis (ICD Code) Assessment Notes Treatment Notes Treatment Clinical Notes Section Notes 04/09/2024 Tinea unguium (ICD-10 - B35.1) The patient is a pleasant 78-year-old female who presents for evaluation of thickened mycotic toenails affecting both great toes. The patient has no evidence of paronychia or ingrowing of the nails. She was advised that the best treatment for nail fungus is oral antifungals, however these medications have a high side effect profile and require blood testing. I advised if she is interested in starting this medication she should talk to her family doctor. The patient is not interested in pursuing that at this time. I advised that onychomycosis is a cosmetic issue if it is not painful. I recommend Vicks VapoRub to the nails to soften them. All questions were answered to her satisfaction. She may follow-up as needed. 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
--- OUTSIDE RECORDS SUMMARY | 2025-03-31 14:52 | XMS_ITS | Encounter Summary ---
Author [facility] Address [facility] [id number] [address] [place] [address] Care Team Providers Care Slitting Machine Operator Name Role Phone Hafsa Browning MD Primary Care Provider [phone] Encounter Details Date Type Department Care Team (Late st Contact Info) Description 06/03/2024 Orders Only [facility] [address] [place] [phone] Stephanie Dowell CMA Social History Tobacco Use [...] on filedocumented in this encounter Care Teams Slitting Machine Operator 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 Start Date End Date Hafsa Browning MD [address] [place] [address] PCP - General Family Medicine 06/01/21 documented as of this encounter
--- NOTE | 2025-03-31 15:36 | ED_ITS ---
HPI HPI - General Adult General Chief complaint: Extremity Problem, Nontraumatic Stated complaint: POST OP COMPLICATIONS Time Seen by Provider: 03/31/25 15:03 Source: patient Mode of arrival: walk-in Limitations: no limitations History of Present Illness HPI narrative: Patient is a 79-year-old female that presents to the emergency department with complaints of rash around her right knee that has been increasing after a total knee arthroplasty 4 weeks ago. She had this done with Dr. Perdomo at [facility]. She noticed the rash about a week ago and it has been spreading up and down her leg. She has not been wearing a dressing anymore. The area in the middle of the knee she presented to physical therapy today and they recommended that she come to the emergency room for evaluation. She denies any systemic symptoms such as fever, night sweats, or chills. She has had no surgical or postop complications thus far. Mid knee the rash had strarted to crust over and have some yellowish drainage. Her surgicval incision has not opened. Related Data Home Medications ?Medication ?Instructions ?Recorded ?Confirmed biotin 5 mg capsule 5 mg PO DAILY 05/01/2408/17 cholecalciferol (vitamin D3) 125 125 mcg PO DAILY 04/1408/17/24 mcg (5,000 unit) capsule cranberry 500 mg capsule 500 mg PO DAILY 05/01/2410/06 d-mannose 500 mg capsule mg PO 05/01/24 estradiol 0.01% (0.1 mg/gram) 0.5 appful vaginal .twic e a week 05/01/24 08/17/24 vaginal cream loratadine 10 mg capsule 10 mg PO DAILY 05/01/2403/15 aspirin 81 mg tablet,delayed 81 mg PO DAILY 08/17/24 0 03/31/25 release (Adult Low Dose Aspirin) Previous Rx's ?Medication ?Instructions ?Recorded cefdinir 300 mg capsule 300 mg PO BID 10 days #20 ca ps 03/31/25 fluconazole 150 mg tablet 150 mg PO Q3D 3 doses #3 tab s 03/31/25 methylprednisolone 4 mg tablets in 4 mg PO DAILY #21 e a 03/31/25 a dose pack (Medrol (Rob)) Allergies Allergy/AdvReac Type Severity Reaction Status Date / Time codeine AdvReac Nausea Verified 03/31/25 14:52 Opioid HPI Opioid Management Most Recent Opioid Data: Last Pain Scale 2 03/31/25, 14:52 Review of Systems ROS Status of ROS 10 or more systems reviewed and unremark able except as noted in history and below [facility] Medical History (Updated 03/31/25 @ 15:56 by KAUSHIK Perdomo) Phlebitis and thrombophlebitis of superficial vessels of right lower extremity ?I80.01 - Phlebitis and thrombophlebitis of superficial vessels of right lower extremity (ICD-10) Phlebitis and thrombophlebitis of superficial vessels of left lower extremity ?I80.02 - Phlebitis and thrombophlebitis of superficial vessels of left lower extremity (ICD-10) Pain due to varicose veins of both lower extremities ?I83.813 - Varicose veins of bilateral lower extremities with pain (ICD-10) Raynaud disease ?I73.00 - Raynaud's syndrome without gangrene (ICD-10) Arthritis ?M19.90 - Unspecified osteoarthritis, unspecified site (ICD-10) History of ITP (1989) ?Z86.2 - Personal history of diseases of the blood and blood-forming organs and certain disorders involving the immune mechanism (ICD-10) History of blood transfusion ?Z92.89 - Personal history of other medical treatment (ICD-10) Thyroid cyst ?E04.1 - Nontoxic single thyroid nodule (ICD-10) Phlebitis ?I80.9 - Phlebitis and thrombophlebitis of unspecified site (ICD-10) Varicose vein of leg ?I83.90 - Asymptomatic varicose veins of unspecified lower extremity (ICD-10) Knee pain ?M25.569 - Pain in unspecified knee (ICD-10) Seasonal allergic rhinitis ?J30.2 - Other seasonal allergic rhinitis (ICD-10) Cataracts, bilateral ?H26.9 - Unspecified cataract (ICD-10) Hyperparathyroidism ?E21.3 - Hyperparathyroidism, unspecified (ICD-10) Renal cyst ?N28.1 - Cyst of kidney, acquired (ICD-10) Osteopenia ?M85.80 - Other specified disorders of bone density and structure, unspecified site (ICD-10) Vitamin D deficiency ?E55.9 - Vitamin D deficiency, unspecified (ICD-10) Chronic UTI ?N39.0 - Urinary tract infection, site not specified (ICD-10) Genu varum of right lower extremity ?M21.161 - Varus deformity, not elsewhere classified, right knee (ICD-10) Primary osteoarthritis of right knee ?M17.11 - Unilateral primary osteoarthritis, right knee (ICD-10) Surgical History (Updated 08/04/24 @ 15:16 by Saeid Godinez) S/P sclerotherapy of varicose veins ?Z98.890 - Other specified postprocedural states (ICD-10) ?Z86.79 - Personal history of other diseases of the circulatory system (ICD- 10) S/P sclerotherapy of varicose veins ?Z98.890 - Other specified postprocedural states (ICD-10) ?Z86.79 - Personal history of other diseases of the circulatory system (ICD- 10) S/P sclerotherapy of varicose veins ?Z98.890 - Other specified postprocedural states (ICD-10) ?Z86.79 - Personal history of other diseases of the circulatory system (ICD- 10) Status post laser ablation of incompetent vein ?Z98.890 - Other specified postprocedural states (ICD-10) Status post laser ablation of incompetent vein ?Z98.890 - Other specified postprocedural states (ICD-10) Status post laser ablation of incompetent vein ?Z98.890 - Other specified postprocedural states (ICD-10) History of colonoscopy ?Z98.890 - Other specified postprocedural states (ICD-10) H/O knee surgery ?Z98.890 - Other specified postprocedural states (ICD-10) H/O breast biopsy ?Z98.890 - Other specified postprocedural states (ICD-10) History of cholecystectomy ?Z90.49 - Acquired absence of other specified parts of digestive tract (ICD- 10) H/O oophorectomy H/O parathyroidectomy ?Z98.890 - Other specified postprocedural states (ICD-10) ?Z90.89 - Acquired absence of other organs (ICD-10) History of hysterectomy ?Z90.710 - Acquired absence of both cervix and uterus (ICD-10) H/O tubal ligation ?Z98.51 - Tubal ligation status (ICD-10) H/O splenectomy (1989) ?Z90.81 - Acquired absence of spleen (ICD-10) S/P arthroscopic knee surgery ?Z98.890 - Other specified postprocedural states (ICD-10) Family History (Updated 06/16/24 @ 10:21 by Hilda Reyes RN) Mother Varicose veins of bilateral lower extremities with pain Father Family history of myocardial infarction Other Cancer Family history of DVT Family history of cancer Social History (Updated 05/01/24 @ 08:31 by Francesca Zavala NP) Within the past year, how often did you have a drink containing alcohol: never Score interpretation: A score less than 3 is consistent with normal alcohol consumption. 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 Rash R Knee as noted below. Head: Normocephalic, atraumatic. Neck: Supple, non-tender. Eye: Pupils are equal, round and EOMI. No scleral icterus. Ears, Nose, Mouth, and Throat: No nasal mucosal hypertrophy. Oral mucosa is moist, no posterior oropharynx erythema, uvula is mid-line Cardiovascular: Regular Rate and Rhythm without murmur, gallop or rub. Respiratory: No accessory muscle use or respiratory distress. Lungs are clear to auscultation, no wheezing, rales or rhonchi Chest Wall: no tenderness Back: No midline thoracic or lumbar vertebral tenderness. Musculoskeletal: Full ROM of all extremities, no calf or popliteal tenderness, except right knee 0-90 degrees ROM. Midline surgical scar, no drainage or dehiscence from this incision. There is a rash on the lateral side worse in the middle that is starting to extend superior and somewhat inferior. There are crusted vesicles about mid lateral wound, no drainage on exam. 2+ DP pulse palpated. Sensation intact distally. GI: Abdomen is soft, non-distended, non tender to palpation. No masses appreciated. No rebound, guarding, or rigidity noted. Neurological: A&O x4. No cranial nerve dysfunction observed. No truncal ataxia. Moves all extremities. Sensation intact. Psychiatric: Cooperative and interactive. Normal mood and affect. Constitutional Vital Signs, click to edit/add: Last Vital Signs Temp 98.7 F 03/31/25 14:52 Pulse 75 03/31/25 14:52 Resp 16 03/31/25 14:52 BP 127/85 03/31/25 14:52 Pulse Ox 98 03/31/25 14:52 O2 Del Method Room Air 03/31/25 14:52 Documenting provider has reviewed patient's vital signs: yes Course Vital Signs Vital signs: Vital Signs Temperature 98.7 F 03/31/25 14:52 Pulse Rate 75 03/31/25 14:52 Respiratory Rate 16 03/31/25 14:52 Blood Pressure 127/85 03/31/25 14:52 Pulse Oximetry 98 03/31/25 14:52 Oxygen Delivery Method Room Air 03/31/25 14:52 Temperature 98.7 F 03/31/25 14:52 Pulse Rate 75 03/31/25 14:52 Respiratory Rate 16 03/31/25 14:52 Blood Pressure 127/85 03/31/25 14:52 Pulse Oximetry 98 03/31/25 14:52 Oxygen Delivery Method Room Air 03/31/25 14:52 Medical Decision Making MDM Narrative Medical decision making narrative: 79 year old female presents to the emergency department 4 weeks post Right Total Knee Arthroplasty with Dr Perdomo with complaints of spreading rash around incision. She was at PT today and they recommended ER evaluation and sent her here. The rash is lateral to the knee incision, no dehiscence of the incision. There is some crusting of the rash over the knee portion that has started to drain some yellowish fluid today. She denies fever, nights sweats, etc. Here the patient appears non toxic and is afebrile. No surrounding erythema, swelling, warmth, or induration of the R knee. No sign of abscess formation. Rash appears superficial in nature. No drainage on exam here observed. No indication for joint aspiration at this time given lack of systemic or joint signs/ symptoms. I did speak with her Surgeon, Dr Perdomo, who would like CBC, ESR, and CRP ordered. Patient had no leukocytosis. ESR 44, CRP 1.02, which I did call him back and update with results. He states that ESR/ CRP can remain elevated still at 4 weeks post op and he will use as a baseline for follow up with patient. He would like her to start on Cefdinir and a Medrol Dose Pack. I discussed labs results and plan with patient and she also requested something to help with yeast infection as she always gets one with antibiotics and doesn't like using Monostat. Dr Perdomo will see her next week in office in [place] on Saturday. No signs of systemic infection or deep prosthetic involvement. Treating empirically for superficial skin infection with antibiotics and steroids per Surgeons instructions. Patient is stable for discharge with instructions to monitor for worsening infection ( fever, chills, increased drainage, joint pain, or rapidly spreading erythema). Outpatient Ortho follow-up arranged. Return precautions were discussed and also placed in discharge information. Patient was discharged with Cefdinir 300mg BID x 10 days, Diflucan 150mg one today then Q3days while on antibiotics, and a Medrol dose pack. Differential Diagnosis Differential Diagnosis: Superficial cellulitis, Total Knee infection, Contact dermatitis Lab Data Labs: Lab Results 03/31/25 Range/Units 16:10 WBC 5.3 (4.0-11.0) 10^3/uL RBC 3.52 L (4.20-5.40) 10^6/uL Hgb 12.1 (12.0-16.0) g/dL Hct 37.2 (36.0-48.0) % MCV 105.7 H (81.0-99.0) fL MCH 34.4 H (26.7-34.0) pg MCHC 32.5 (29.9-35.2) g/dL RDW 14.2 (11.0-15.0) % Plt Count 384 (150-450) 10^3/uL MPV 11.9 (9.5-13.5) fL Neut % (Auto) 26.4 L (43.0-75.0) % Lymph % (Auto) 55.7 (20.5-60.0) % Cannon % (Auto) 13.4 H (1.7-12.0) % Eos % (Auto) 3.6 (0.9-7.0) % Baso % (Auto) 0.9 (0.2-2.0) % Neut # (Auto) 1.4 (1.4-6.5) 10^3/uL Lymph # (Auto) 2.9 (1.2-3.8) 10^3/uL Cannon # (Auto) 0.7 (0.3-0.8) 10^3/uL Eos # (Auto) 0.2 (0.0-0.7) 10^3/uL Baso # (Auto) 0.1 (0.0-0.1) 10^3/uL Abs Immat Gran (auto) 0.00 (0.00-0.03) 10^3/uL Imm/Tot Granulo (auto) 0.0 (0.0-0.5) % ESR 44 H (<=30) mm/hr C-Reactive Protein 1.02 H (<=0.50) mg/dL Discharge Plan Discharge Chief Complaint: Extremity Problem, Nontraumatic Clinical Impression: Post-operative complication Qualifiers: Surgical complication system/body Area: musculoskeletal system Surgical complication type: unspecified Procedure type: musculoskeletal Qualified Code(s): M96.89 - Other intraoperative and postprocedural complications and disorders of the musculoskeletal system Patient Disposition: Home, Self-Care Time of Disposition Decision: 16:43 Condition: Good Mode of Transportation: Private Vehicle Prescriptions / Home Meds: New cefdinir 300 mg capsule 300 mg PO BID 10 Days Qty: 20 0RF methylprednisolone [Medrol (Rob)] 4 mg tablets,dose pack 4 mg PO DAILY Qty: 21 0RF fluconazole 150 mg tablet 150 mg PO Q3D Qty: 3 0RF No Action estradiol 0.01 % (0.1 mg/gram) cream 0.5 appful VAGINAL .twice a week cholecalciferol (vitamin D3) 125 mcg (5,000 unit) capsule 125 mcg PO DAILY cranberry 500 mg capsule 500 mg PO DAILY Rx Instructions: administer with a meal biotin 5 mg capsule 5 mg PO DAILY d-mannose 500 mg capsule PO loratadine 10 mg capsule 10 mg PO DAILY aspirin [Adult Low Dose Aspirin] 81 mg tablet,delayed release (DR/EC) 81 mg PO DAILY Print Language: Japanese Instructions: Surgical Site Infections (ED) Additional Instructions: Your surgeon wants you to start on a new course of an antibiotic and a steroid pack. You will be given a prophylactic treatment for yeast infection caused by antibiotic use. Follow-up with Dr. Perdomo in 1 week, Saturday, in his [place] office. Call tomorrow for appointment time. Call your surgeon or go to the Emergency Department if you experience any of the following: * Fever >100.4?F (38?C) * Chills or night sweats * Increased redness, warmth, or swelling around the incision * Foul-smelling or purulent (thick banerjee/brown) drainage from the wound * Sudden increase in pain * Rash spreading rapidly or becoming blistered or painful * Difficulty bearing weight or decreased mobility Referrals: Hafsa Browning MD [Primary Care Provider, Family Practice] - 1 week Johny Perdomo MD [Physician] - 1 week Referral Note: Follow-up in the [place] [facility] office next April 06. Call office tomorrow to get an appointment time. Discharge Date/Time: 03/31/25 16:58
--- OUTSIDE RECORDS SUMMARY | 2025-03-31 15:58 | XMS_ITS | CCD ---
Author Organization [facility] Care Team Providers Care Lawn Sprinkler Servicer Name Role Phone HARLAN KNOWLES Primary Care Physician SAMUEL, DR ANTWON Sharma Admitting Unavailparadise BAKER, DR ANTWON Sharma Attending Unavailparadise KNOWLES, DR HARLAN Sharma Primary Care Unavailable SAMUEL, DR ANTWON Sharma Consulting UnavailEMILEE Trimble Consulting Unavailable BETZY HAMILTON Consulting Unavailable SHAHID ORTEGA, DR MALLY Mendiola Admitting Unavailparadise KEY JR, DR MALLY Mendiola Attending Unavailparadise KNOWLES, DR HARLAN Sharma Primary Care Unavailable SHAHRIAR, DR DARIO Duarte Consulting Unavailable SHAHID ORTEGA, DR MALLY Mendiola Consulting Unavailparadise KNOWLES, DR HARLAN Sharma Admitting Unavailable BENSON, DR HARLAN Sharma Attending Unavailable BENSON, DR HARLAN Sharma Primary Care Unavailable SHAHRIAR, DR DARIO Duarte Consulting Unavailable SHAHID ORTEGA, DR MALLY Mendiola Consulting Unavailparadise BAKER, DR ANTWON Sharma Admitting Unavailparadise BAKER, DR ANTWON Sharma Attending Unavailparadise KNOWLES, DR HARLAN Sharma Primary Care Unavailable SAMUEL, DR ANTWON Sharma Consulting UnavailHarlan Hernandez Unavailable Katie Almonte Attending Unavailable Katie Almonte Attending Unavailable Katie Almonte Attending Unavailable Kaite Almonte Admitting Unavailable Maryan Mcwilliams Attending Unavailable Maryan Mcwilliams Admitting Unavailable Maryan Mcwilliams MD Attending Provider Harlan Knowles MD Primary Care Provider ZAIDA CHILD Attending Unavailable HARLAN KNOWLES Referring Unavailable HARLAN KNOWLES Primary Care Unavailable HARLAN KNOWLES Primary Care Unavailable [facility]ARDIOLOG[facility], [facility] Consulting Unavailable HESHAM AMADOR Admitting Unavailable HESHAM AMADOR Attending Unavailable DUTCH ELLSWORTH Consulting Unavailable ANTONY THIBODEAUX Referring Unavailable KNOWLES, HARLAN E Primary Care Unavailable KATHRYN SORENSEN Referring Unavailable KNOWLES, HARLAN E Primary Care Unavailable Harlan Knowles MD Primary Care Provider KNOWLES, HARLAN E Referring Unavailable KNOWLES, HARLAN E Primary Care Unavailable KNOWLES, HARLAN E Referring Unavailable KNOWLES, HARLAN E Primary Care Unavailable DUTCH ELLSWORTH Attending Unavailable KNOWLES, HARLAN E Referring Unavailable KNOWLES, HARLAN E Primary Care Unavailable DORIAN EVANS Referring Unavailable KNOWLES, HARLAN E Primary Care Unavailable TAMARA, DUTCH C Referring Unavailable KNOWLES, HARLAN E Primary Care Unavailable MADDIE RAMACHANDRAN Attending Unavailable KNOWLES, HARLAN E Referring Unavailable KNOWLES, HARLAN E Primary Care Unavailable TAMARA, DUTCH C Referring Unavailable KNOWLES, HARLAN E Primary Care Unavailable Harlan Knowles MD Primary Care Provider JOHNY PERDOMO Referring Unavailable KNOWLES, HARLAN Primary Care Unavailable Harlan Knowles MD Primary Care Provider Harlan Knowles MD Attending Provider Dario Bess Attending Unavailable Dario Bess Admitting Unavailable Knowles, Harlan E Primary Care Unavailable Knowles, Harlan E Primary Care Unavailable Quentin Hernandez V. Attending Unavailable Quentin Hernandez V. Admitting Unavailable Dario eBss Attending Unavailable Dario Bess Admitting Unavailable Knowles, Harlan E Primary Care Unavailable Dario Bess Attending Unavailable Dario Bess Admitting Unavailable Knowles, Harlan E Primary Care Unavailable Quentin Hernandez V. Attending Unavailable Quentin Hernandez V. Admitting Unavailable Knowles, Harlan E Primary Care Unavailable Quentin Hernandez V. Attending Unavailable Quentin Hernandez V. Admitting Unavailable Knowles, Harlan E Primary Care Unavailable Johny Perdomo DO Attending Provider [phone] Shannan Polanco APRN Attending Provider Benson JACOB, Harlan Ledezma Primary Care Unava ilable Conor HENSON, Johny Bell Attending UnavailHarlan Hernandez MD Primary Care Unava ilable Conor HENSON, Johny Bell Attending Unavailabl e Conor DO, Johny Bell Attending Unavailabl e Perdomo DO, Johny Bell Admitting Cinda Knowles MD, Harlan Ledezma Primary Care Berenice Toro MD, Marielena Scott Consulting Unavail able Johny Perdomo DO Attending Cinda e Allergies Allergy Classification Reported Allergen(s) Allergy Type Date of Onset Reaction(s) Facility (20 sources) Codeine; Translations: [codeine] Drug Allergy 12-26-19 16 Nausea, GI Disturbance [facility] (1 source) Codeine Drug Allergy [facility] Repository (2 sources) Acetaminophen / HYDROcodone Drug Allergy Unknown [facility] [employer] Other (2 sources) Codeine Drug Allergy Unknown [facility] [employer] Other (2 sources) patient allergy list reviewed by nurse or physicia Propensity to adverse reactions 04-29-20 15 Comment:Done [facility] [employer] Other (2 sources) Allergies Reconciled Propensity to adverse reactions Unknown [facility] [employer] Other (11 sources) Acetaminophen; Translations: [acetaminophen] Drug Allergy 01-24-20 24 [facility] (11 sources) HYDROcodone; Translations: [hydrocodone] Drug Allergy 01-24-20 24 [facility] (1 source) Codeine Drug Allergy 05-19-20 24 [facility] Repository Medications Current Medications Medication Drug Class(es) Dates Sig (Normalized) Sig (Original) acetaminophen 500 mg oral tablet (12 sources) take 2 tablets by mouth every six hours as needed for pain acetaminophen (TYLENOL EXTRA STRENGTH) 500 mg tablet Take 2 tablets (1,000 mg total) by mouth every 6 (six) hours as needed for pain. Active acetaminophen (T YLENOL) 325 mg tablet Take by mouth. Active biotin 5 mg oral capsule (20 sources) Start: 01-21-2024 take 1 capsule by mouth once daily Biotin 5 mg capsule Active 5 MG PO Daily January 21, 2024 12:00am Complies with drug therapy Start: 10-25-2020 biotin 5000 mc g oral capsule Refills(s) 0 Start Date: 10/25/20 Status: Ordered take 1 capsule by mo uth in the morning biotin 1 mg capsule Take 1 capsule by mouth in the morning. Active take 1 capsule by mo [facility] once daily Biotin 5000 5 MG 1 capsule Orally Once a day Active cholecalciferol 0.025 mg oral capsule (20 sources) Vitamin D Start: 01-21-2024 take 1 capsule by mouth once daily Cholecalciferol (Vitamin D3) 25 mcg (1,000 unit) capsule Active 25 MCG PO Daily January 21, 2024 12:00am Complies with drug therapy take 1 tablet by mouth in the [...] Active cranberry preparation 500 mg oral capsule (12 sources) Non-Standardized Food Allergenic Extract, Non-Standardized Plant Allergenic Extract take 1 mg by mouth in the morning cranberry 500 mg capsule Take 1 mg by mouth in the morning. Active take 1 mg by mouth in the mornin g cranberry 500 mg capsule Take 1 mg by mouth in the morning. Suspended cranberry 500 mg capsule Take by mouth. Active estradiol 0.1 mg/ml vaginal cream (20 sources) Estrogen Start: 12-17-2024 Estradiol (Est race) 0.01 % (0.1 mg/gram) cream Active 1 APPLICATOR VAGINAL every week December 17, 2024 1:04pm for 14 days Complies with drug therapy Start: 01-24-2024 End: 12-17-2024 Estradiol (Estrace) 0.01 % ( 0.1 mg/gram) cream Discontinued 1 APPLICATOR VAGINAL Daily January 24, 2024 12:00am December 17, 2024 1:05pm for 14 days Start: 01-15-2024 estradioL (EST RACE) 0.01 % (0.1 mg/gram) vaginal cream Insert 2 g into the vagina 2 (two) times a week. 01/15/2024 Active Start: 01-15-2024 Estrace 0.1 mg /g Cream See Instructions, 42.5 gm, Refill(s) 6, Apply pea-sized amound around the opening of the urethra 3 times per week for 1 month then 2 times per week after for maintenance., [facility], 168, cm, 01/15/24 10:54:00 EDT, Height/Length Dosing, 96, kg, 01/15/24 10:54:00 EDT, Weight Dosing Start Date: 01/15/24 Status: Ordered Start: 08-22-2022 Estrace 0.1 mg /g Cream See Instructions, 42.5 gm, Refill(s) 6, Apply pea-sized amound around the opening of the urethra 3 times per week for 1 month then 2 times per week after for maintenance., [facility], 168, cm, 08/22/22 11:52:00 EST, Height/Length Dosin... Start Date: 08/22/22 Status: Ordered ibuprofen 400 mg oral tablet (3 sources) Nonsteroidal Anti-inflammatory Drug take 1 tablet by mouth every six hours as needed for pain ibuprofen (MOTRIN) 400 mg tablet Take 1 tablet (400 mg total) by mouth every 6 (six) hours as needed for pain. Active levETIRAcetam 500 mg oral tablet (2 sources) Start: End: take 1 tablet by mouth once levETIRAcetam (KEPPRA) 500 mg tablet Take 1 tablet (500 mg total) by mouth every 12 (twelve) hours for 6 days. 12 tablet 08/18/2024 08/24/2024 Active loratadine 10 mg oral tablet (17 sources) Start: take 1 tablet by mouth once daily Loratadine (Claritin) 10 mg tablet Active 10 MG PO Daily September 02, 2024 1:00am Complies with drug therapy nitrofurantoin, macrocrystals 50 mg oral capsule (20 sources) Nitrofuran Antibacterial Start: 025 take 1 capsule by mouth once daily at mealtime Nitrofurantoin Macrocrystal 50 mg capsule Active 0 .ROUTE .COMPLEX January 27, 2025 10:52am TAKE 1 CAPSULE BY MOUTH ONCE DAILY * TAKE WITH FOOD or a meal* Complies with drug therapy Start: 03-24-2024 End: 07-16-2024 take 1 capsule by mouth once daily at mealtime Nitrofurantoin Macrocrystal 50 mg capsule Discontinued 0 .ROUTE .COMPLEX May 20, 2024 11:53am July 16, 2024 10:03am TAKE 1 CAPSULE BY MOUTH ONCE DAILY [...] 2024 11:35am must administer with a meal/food NON FORMULARY (9 sources) take 1 dose by mouth in the morning NON FORMULARY Take 1 each by mouth in the morning. Med Name: [place] vitamin for bladder health. Active take 1 dose by mouth in the morn ing NON FORMULARY Take 1 each by mouth in the morning. Med Name: [place] vitamin for bladder health. Suspended sod sulf-pot chloride-mag tabares lf 1.479-0.188- 0.225 gram tablet (6 sources) Start: 07-24-2022 sod sulf-pot c hloride-mag sulf 1.479-0.188- 0.225 gram tablet Indications: Left [...] UNIT (2 sources) take 1 capsule by [facility] once daily Vitamin D-3 1000 UNIT 1 capsule Orally Once a day Active Completed/Discontinued Medications Medication Drug Class(es) Dates Sig (Normalized) Sig (Original) cephalexin 500 mg oral capsule (17 sources) Cephalosporin Antibacterial Start: 05-05-2024 End: 05-08-2024 take 1 capsule by mouth three times daily Cephalexin 500 mg capsule Discontinued 500 MG PO Three times daily May 07, 2024 12:00am May 08, 2024 3:53pm Start: 12-05-2021 take 1 capsule by [facility] every twelve hours Keflex 500 mg Cap 500 mg = 1 cap(s), Oral, q12hr, # 6 cap(s), Refills(s) 0, Pharmacy: [id number], 168, cm, 12/05/21 10:16:00 EDT, Height/Length Dosing, 97.5, kg, 12/05/21 10:16:00 EDT, Weight Dosing Start Date: 12/05/21 Status: Ordered fexofenadine hydrochloride 60 mg oral tablet (20 sources) Histamine-1 Receptor Antagonist Start: 01-24-2024 End: 09-02-2024 take 1 tablet by mouth twice daily Fexofenadine (Mary Allergy) 60 mg tablet Discontinued 60 MG PO Twice daily January 24, 2024 12:00am September 02, 2024 12:18pm Start: 10-25-2020 End: 09-29-2024 fexofenadine (MARY) 180 m g tablet Take by mouth. 10/25/2020 09/29/2024 Discontinued (Therapy completed) Start: 10-25-2020 Mary Oral, Refills(s) 0 Start Date: 10/25/20 Status: Ordered naproxen 500 mg oral tablet (7 sources) Nonsteroidal Anti-inflammatory Drug Start: 05-08-2024 End: 09-02-2024 take 1 tablet by mouth twice daily Naproxen 500 mg tablet Discontinued 500 MG PO Twice daily May 08, 2024 12:00am September 02, 2024 12:19pm omeprazole 40 mg delayed release oral capsule (12 sources) Proton Pump Inhibitor Start: 01-21-2024 End: 01-24-2024 take 1 capsule by mouth once daily Omeprazole 40 mg capsule,delayed release(DR/EC) Discontinued 40 MG PO Daily January 21, 2024 12:00am January 24, 2024 11:02am Start: 09-05-2020 take 1 capsule by [facility] once daily Omeprazole 40 MG Omeprazole 40MG, 1 (one) Capsule daily # 30, 09/05/2020, Ref. x2. Active Oral daily for 30 Aug, Active predniSONE 20 mg oral tablet (7 sources) Start: 05-19-2024 End: 07-16-2024 take 1 tablet by mouth twice daily Prednisone 20 mg tablet Discontinued 20 MG PO Twice daily May 19, 2024 1:00am July 16, 2024 10:03am sulfamethoxazole 800 mg / trimethoprim 160 mg oral tablet (9 sources) Dihydrofolate Reductase Inhibitor Antibacterial, Sulfonamide Antimicrobial Start: 05-08-2024 End: 07-16-2024 take 1 tablet by mouth twice daily Sulfamethoxazole- Trimethoprim 800-160 mg tablet Discontinued 1 TAB PO Twice daily May 08, 2024 12:00am July 16, 2024 10:03am Start: 06-25-2023 take 1 tablet by marcelino [...] Active Problems Problem Classification Problem Date Documented Date Episodic/Chronic Abdominal pain (2 sources) Left upper quadrant pain; Translations: [Left upper quadrant pain] Episodic Acute cerebrovascular disease (20 sources) Hemorrhage into subdural space of neuraxis; 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, unspecified] Onset: 08-17-2024 08-17-2024 Chronic Allergic reactions (2 sources) Contact dermatitis due to plants; Translations: [Unspecified contact dermatitis due to plants, except food] Episodic Blindness and vision defects (12 sources) Visual impairment; Translations: [Unspecified visual loss] Onset: 07-18-2022 07-18-2022 Chronic Calculus of urinary tract (8 sources) Kidney stone; Translations: [Calculus of kidney] 07-16-2024 Episodic Conditions associated with dizziness or vertigo (1 source) Dizziness Onset: 09-29-2024 Episodic Deficiency and other anemia (5 sources) Anemia 10-25-2020 Episodic E Codes: Fall (1 source) Fall Onset: 08-17-2024 Genitourinary congenital anomalies (2 sources) Multiple congenital cysts of kidney; 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, unspecified] Chronic Menopausal disorders (20 sources) Atrophic vaginitis; Translations: [Postmenopausal atrophic vaginitis] Onset: 11-07-2017 Chronic Nutritional deficiencies (2 sources) Vitamin D deficiency; Translations: [Vitamin D deficiency, unspecified] Chronic Osteoarthritis (20 sources) Arthritis; Translations: [Unspecified osteoarthritis, unspecified site] Onset: 07-18-2022 10-25-2020 Chronic Other circulatory disease (2 sources) Elevated blood-pressure reading without diagnosis of hypertension; Translations: [Elevated blood-pressure reading, without diagnosis of hypertension] Episodic Other connective tissue disease (9 sources) Pain in right lower limb; Translations: [Pain in right leg] 05-07-2024 Episodic Other connective tissue disease (5 sources) Pain in right leg; Translations: [Pain in limb] 05-07-2024 Episodic Other diseases of kidney and ureters (3 sources) Disorder of kidney and/or ureter; Translations: [Other specified disorders of kidney and ureter] Onset: 12-05-2021 Chronic Other diseases of kidney and ureters (13 sources) Renal mass; Translations: [Other specified disorders of kidney and ureter] Onset: 07-18-2022 12-05-2021 Chronic Other diseases of kidney and [...] Episodic Other diseases of kidney and ureters (6 sources) Hydronephrosis; Translations: [Unspecified hydronephrosis] 07-16-2024 Episodic Other diseases of kidney and ureters (2 sources) Unspecified hydronephrosis; Translations: [Hydronephrosis] 07-16-2024 Episodic Other diseases of kidney and ureters (5 sources) Kidney lesion; Translations: [Disorder of kidney and ureter, unspecified] 07-16-2024 Episodic Other diseases of kidney and ureters (1 source) Disorder of kidney and ureter, unspecified; Translations: [Unspecified disorder of kidney and ureter] 07-16-2024 Episodic Other endocrine disorders (13 sources) Hyperparathyroidism; Translations: [Hyperparathyroidism, unspecified] Onset: 07-24-2016 07-09-2019 Chronic Other endocrine disorders (2 sources) Primary hyperparathyroidism; Translations: [Primary hyperparathyroidism] Chronic Other injuries and conditions due to external causes (1 source) Injury of head Onset: 08-17-2024 Episodic Other non-traumatic joint disorders (4 sources) Arthralgia of the lower leg; Translations: [Pain in joint, lower leg] Onset: 11-07-2017 Episodic Other nutritional; endocrine; and metabolic disorders (2 sources) Obesity; Translations: [Obesity, unspecified] Chronic Other nutritional; endocrine; and metabolic disorders (2 sources) Hypercalcemia; Translations: [Hypercalcemia] Chronic Other screening for suspected conditions (not mental disorders or infectious disease) (16 sources) Elevated liver enzymes level; Translations: [Other specified abnormal findings of blood chemistry] 01-24-2024 Episodic Other upper respiratory disease (2 sources) Allergic rhinitis; Translations: [Allergic rhinitis, unspecified] Onset: 04-13-2016 Chronic Other upper respiratory infections (2 sources) Chronic sinusitis; Translations: [Chronic sinusitis, unspecified] Chronic Residual codes; unclassified (1 source) Pain, unspecified; Translations: [Pain, unspecified] Onset: 08-17-2024 Episodic Thyroid disorders (5 sources) Thyroid nodule 07-09-2019 Chronic Unclassified (1 source) follow up superficial thrombophlebitis venous duplex lwr s Onset: 06-10-2024 Unclassified (1 source) Hospital Follow-up Onset: 09-29-2024 Past or Other Problems Problem Classification Problem Date Documented Da te Episodic/Chronic Biliary tract disease (20 sources) Biliary calculus; Translations: [Gallstone] Onset: 5 07-09-2019 Episodic Genitourinary symptoms and ill-defined conditions (20 sources) Urgent desire to urinate; Translations: [Urgency of urination] Onset: 3 Episodic Mood disorders (9 sources) Mood disorders Onset: 5 08-17-2024 Other bone disease and musculoskeletal deformities (13 sources) Osteopenia; Translations: [Other specified disorders of bone density and structure, unspecified site] Onset: 5 07-09-2019 Episodic Other bone disease and musculoskeletal deformities (2 sources) Bone density finding; Translations: [Other specified disorders of bone density and structure, unspecified site] Onset: 6 Episodic Other connective tissue disease (1 source) Pain in lower limb Onset: 4 Episodic Other upper respiratory infections (3 sources) Acute sinusitis; Translations: [Acute sinusitis, unspecified] Onset: 5 Episodic Phlebitis; thrombophlebitis and thromboembolism (20 sources) Phlebitis; Translations: [Phlebitis and thrombophlebitis of unspecified site] Onset: 4 05-19-2024 Episodic Syncope (7 sources) Vasovagal syncope; Translations: [Syncope and collapse] Onset: 5 09-29-2024 Episodic Unclassified (2 sources) Abnormal result; Translations: [Other abnormal clinical finding] Onset: 7 Urinary tract infections (14 sources) Acute cystitis; Translations: [Acute cystitis without hematuria] Onset: 2 Episodic Varicose veins of lower extremity (15 sources) Varicose veins of lower extremity; Translations: [Varicose veins of bilateral lower extremities with pain] Onset: 4 05-28-2024 Episodic Results Test Name Value Interpretation Reference Range Facility Inpatient Clinical Summaryon 03-05-2025 Inpatient Clinical Summary [facility] [address] [place] [address] [phone] [facility] [address] [place], [place] [id number] [phone] Clinical Summary Person Information Name: Damaso Kan Age: 79 Years : 1945 Sex: Female PCP: Harlan Knowles MD Marital Status: Phone: PCP: Race: White Ethnicity: Not or Language: [place]ian Visit Id: Visit Reason: Speciality: Acuity: Enc Type: Observation Med Service: Orthopedics Arrival: 03/04/2025 08:48:23 Discharge: Dispo Type: Address: [address] [place] [id number] Preferred Communication Mode: Verbal Preferred Language: [place]ian Discharge Diagnosis: Osteoarthritis of right knee Discharged To: Home with family care Mode of Discharge Transportation: Private vehicle Home Treatments: Devices/Equipment: Professional Skilled Services: Special Services and Community Resources: Discharge Orders: Activity Restrictions Continue to use your walker, crutches or cane as instructed by your physical therapist. Your therapist will tell you when you can discontinue use of walking aids. For many patients walking aids are needed only for the first few days after surgery. Activity Restrictions Continue to wear the anti-embolic (REJI) stockings day and night for 2 weeks (or longer if your activity level remains low). Discharge Special Instructions Bruising may occur in the thigh for knee replacement patients. Do not be alarmed if this occurs. Discharge Wound Care Leave the Aquacel bandage in place until follow up. Ok to shower over dressing Follow up 03/05/25 6:58:00 EDT, 2 to 4 weeks Tube Feeding and Supplements Home Health Consult and Ambulatory Referrals Treatment and Wound Care Coughing/Deep Breathing 03/04/25 13:22:00 EDT, Stop date 03/04/25 13:22:00 EDT, Nursing to encourage Q1 hour while awake Incision Care 03/04/25 13:22:00 EDT, Constant Order Skin Care: Skin Integrity: Localized abnormality Skin Abnormalities: Lines/Devices/BM Information: Urinary Catheter Type: Urinary Catheter Size: Urinary Catheter Activity Date: Pre-insertion Indwelling Catheter Education: Ostomy Type: GI Tube Type: GI Tube Size: GI Tube Activity Date: Date of Last Bowel Movement: 03/03 Functional Status: Sensory Deficits: None Valuables/Belongings : Other: History of Falls Within 6 Months: No High Fall Risk Interventions: Activities of Daily Living: ADLs: Independent Bathing ADL: Dressing ADL: Personal Care Provided: Assisted with gown, Back rub, Chux pad changed, Linens changed, Oral care, [place] care Bed Mobility Assistance: Independent Ambulation Assistance: One person assistance Musculoskeletal Abnormality: Gait: Steady, Slow Assistive Devices: Special Orthopedic Devices: Current Level of Assistance for Self Care/Mobility: Cognitive Status: Orientation Assessment: Oriented x 4 Level of Consciousness: Alert Characteristics of Speech: Clear Aspiration Risk: None Affect/Behavior: Appropriate, Calm, Cooperative, Painful Smoking Status Never (less than 100 in lifetime) Laboratory or Other Results This Visit (last charted value for your 03/04/2025 visit) Hematology 03/04/2025 3:51 PM Hct: 34.9 % -- Normal range between ( 36.0 and 46.0 ) Hgb: 11.9 g/dL -- Normal range between ( 12.0 and 16.0 ) Diagnostic Radiology 03/04/2025 1:36 PM XR Knee 1 or 2 Views Right: XR Knee 1 or 2 Views Right Measurements: Height: 167 cm Dosing Weight: 92.0 kg Measured Weight: 87.0 kg Blood Pressure: 118 mmHg/ 70 mmHg BMI: 32.99 kg/m2 Respiratory: Respirations: Unlabored, Quiet Respiratory Symptoms: None CPAP/BiPAP: Machine Status: Expiratory Pressure: Inspiratory Pressure: Set Respiratory Rate: Oxygen Flow Rate: 5 L/min Inspiratory Time: Cardiovascular: Heart Rhythm: Regular Vital Signs: Temp Axillary: Temp Temporal Artery: 36.0 degC Temp Oral: 36.7 degC Temp Rectal: Apical Heart Rate: Peripheral Pulse Rate: 66 bpm Heart Rate: 64 bpm Respiratory Rate: 18 br/min Diet: Diet: Feeding Tolerance: Appetite: Good Procedures Gall bladder THYROID CYST REMOVAL TOTAL HYSTERECTOMY WITH BSO RIGHT KNEE SURGERY, KNEE CAP DENTAL IMPLANTS VERICOSE VEIN SURGERY EGD RIGHT KNEE MENISCECTOMY COLONOSCOPY CATARCT, BILATERAL WITH IOL BREAST BIOPSY, RIGHT PARATHROID REMOVAL, LEFT SPLEEN REMOVED (1989) Immunizations No Immunizations Documented This Visit Allergies codeine (Nausea) Patient Friendly Med Rec List Medications That Were Updated - Follow Current Instructions Other Medications Current: acetaminophen (acetaminophen 325 mg oral tablet) 650 Milligram Oral (given by mouth) 4 times a day. Last Dose: Current: acetaminophen (acetaminophen 325 mg oral tablet) 650 Milligram Oral (given by mouth) every 4 hours as (more content not included)... Normal [facility] Orthopedic Progress Noteon 0 03-05-2025 Orthopedic Progress Note Subjective Patient seen and evaluated bedside today. Overall doing well. Pain controlled on current pain regimen. Denies any numbness or tingling. Review of Systems Denies fever, chills, chilling Objective Vitals & Measurements T: 36.8 ?C (Oral) HR: 66 (Peripheral) RR: 16 BP: 113/66 SpO2: 97% HT: 167 cm HT: 167 cm WT: 87.0 kg BMI: 32.99 BMI: 32.99 Additional Vitals No qualifying data available. Lab Results Microbiology - Current Encounter No qualifying data available. Diagnostic Results Diagnostic Radiology XR Knee 1 or 2 Views Right 03/04/25 16:30:52 IMPRESSION: Status post total right knee arthroplasty. No acute hardware complication. Stable alignment and appearance of the osseous structures. Expected postoperative changes of the soft tissues and joint spaces. Signed By: Pal Hewitt MD Physical Exam Right lower extremity: Surgical dressings are clean, dry, intact. Compartments are soft and compressible. She is able to flex and extend toes. Has some difficulty with ankle dorsiflexion. Plantarflexion intact. 2+ DP pulse Assessment/Plan Patient is a 79-year-old female being seen status post right total knee arthroplasty. Postop day #1 - Weightbearing as tolerated right lower extremity -PT/OT today mobilize -Complete postop antibiotics - DVT prophylaxis 81 mg aspirin twice daily starting today - Keep surgical dressing in place until follow-up appointment - Postoperative prescription sent to pharmacy - Follow-up in office in 2 weeks. 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 Medical team is consulted for medical management. Assessment: S/p knee arthroplasty right-sided Raynaud's disease Arthritis History of DVT Anemia Plan: Continue current medications, continue current medicine for chronic medical issues. DVT and GI prophylaxis as per primary team. Pain control as per primary team follow along with you. History of Present Illness 79-year-old female with multiple medical problems presented to the hospital for knee arthroplasty, status post right-sided arthroplasty, medicine team is consulted for medical comorbidities. Patient denies any symptoms beside knee pain, basic workup is negative, placed under observation after surgery. Review of Systems Constitutional: [No fevers, chills, sweats] Eye: [No recent visual problems] ENMT: [No ear pain, nasal congestion, sore throat] Respiratory: [No shortness of breath, cough] Cardiovascular: [No Chest pain, palpitations, syncope] Gastrointestinal: [No nausea, vomiting, diarrhea] Genitourinary: [No hematuria] Cachorro/Lymph: [Negative for bruising tendency, swollen lymph glands] Endocrine: [Negative for excessive thirst, excessive hunger] Musculoskeletal: [No back pain, neck pain, joint pain, muscle pain, decreased range of motion] Integumentary: [No rash, pruritus, abrasions] Neurologic: [Alert & oriented X 4] Psychiatric: [No anxiety, depression] Objective Vitals & Measurements T: 36.5 ?C (Oral) TMIN: 36.0 ?C (Temporal Artery) TMAX: 36.5 ?C (Oral) HR: 66 (Peripheral) RR: 18 BP: 144/78 SpO2: 97% HT: 167 cm HT: 167 cm WT: 92.0 kg WT: 92.0 kg (Dosing) BMI: 32.99 BMI: 32.99 General: [Alert and oriented, well nourished, no acute distress]. Eye: [PERRL, EOMI, normal conjunctiva]. HENT: [Normocephalic, clear tympanic membranes, normal hearing, moist oral mucosa, no scleral icterus, no sinus tenderness]. Neck: [Supple, non-tender, no carotid bruits, no JVD, no lymphadenopathy]. Lungs: [Clear to auscultation and percussion, non-labored respiration]. Heart: [Normal rate, regular rhythm, no murmur, gallop or edema]. Abdomen: [Soft, non-tender, non-distended, normal bowel sounds, no masses]. Musculoskeletal: [Normal range of motion and strength, no tenderness or swelling]. Skin: [Skin is warm, dry and pink, no rashes or lesions]. Neurologic: [Awake, alert, and oriented X3, CN II-XII intact]. Psychiatric: [Cooperative, appropriate mood and affect]. Additional Vitals No qualifying data available. Problem List/Past Medical History Ongoing Arthritis of knee, right Bladder prolapse, female, acquired Brain bleed Chronic UTI (urinary tract infection) History of DVT (deep vein thrombosis) History of fall History of kidney stones History of syncope History of thrombophlebitis Kidney cysts Raynauds disease Right knee pain Seasonal allergies Urinary urgency Historical No qualifying data Degree of Malnutrition: No qualifying data available. Procedure/Surgical History EGD COLONOSCOPY BREAST BIOPSY, RIGHT PARATHROID REMOVAL, LEFT DENTAL IMPLANTS CATARCT, BILATERAL WITH IOL VERICOSE VEIN SURGERY RIGHT KNEE MENISCECTOMY RIGHT KNEE SURGERY, KNEE CAP TOTAL HYSTERECTOMY WITH BSO Gall bladder THYROID CYST REMOVAL SPLEEN REMOVED (1989) Arthroplasty Knee Total Replacement (Right) (03/04/2025) Medications Inpatient acetaminophen, 650 mg, Oral, QID acetaminophen, 650 mg, Oral, q4hr, PRN ceFAZolin, 1 g= 50 mL, IV Piggyback, q8hr Colace, 100 mg, Oral, BID HYDROmorphone, 0.5 mg= 0.5 mL, IV Push, q3hr, PRN meloxicam, 15 mg, Oral, Daily Normal Saline Flush 0.9% injectable solution, 10 mL, IV Push, As Indicated, PRN oxyCODONE, 5 mg, Oral, q4hr, PRN Sodium Chloride 0.9% intravenous solution 1,000 mL, 1000 mL, IV Tylenol, 1000 mg, Oral, q6hr, PRN Vitamin D3, 5000 International_unit, Oral, Daily Zofran, 4 mg= 2 mL, IV Push, q6hr, PRN ZyrTEC, 10 mg, Oral, Daily, PRN Home Biotin 5000 mcg oral capsule, 1 tabs, Oral, Daily, AM cranberry 125 mg oral tablet, disintegrating, See Instructions, AM Estrace Vaginal 0.1 mg/g vaginal cream, 0.1 mg, VAG, q4day, use with enclosed calibrated applicator as directed. wash applicator with mild soap/warm water after use. Macrodantin 100 mg oral capsule, 100 mg= 1 caps, Oral, Daily, AM Tylenol, 1000 mg, Oral, q6hr, PRN URINARY HARMONY, See Instructions, AM Vitamin D3 125 mcg (5000 intl units) oral tablet, disintegrating, 125 mcg= 1 tabs, Oral, Daily, AM ZyrTEC 10 mg oral tablet, 10 mg= 1 tabs, Oral, Daily, PRN Allergi (more content not included)... Normal [facility] 03-04-2025 Hematocrit (Bld) [Volume fraction] 34.9 % Low 36.0-46.0 [facility] Comment on above: Performed By: #### H GB[facility] #### [id number] [place] [address] Hemoglobin (Bld) [Mass/Vol] 11.9 g/dL Low 12.0-16.0 [facility] Comment on above: Performed By: #### H [facility] #### [address] [address] Operative Reporton Operative Report Indication for Surgery Patient is a 79-year-old presenting today for right total knee arthroplasty. Does have severe end-stage osteoarthritis of the right knee. We have discussed total knee arthroplasty in detail. Did discuss risk and benefits of surgery. Also discussed postop expectations as well as rehab protocols. Informed consent was obtained. No guarantees made. Preoperative Diagnosis Right knee osteoarthritis Postoperative Diagnosis Right knee osteoarthritis Operation Arthroplasty Knee Total Replacement, Right Surgeon(s) Johny Perdomo DO (Surgeon - Primary) Business Analyst Consultant Lupillo De Oliveira (Insulation Cutter And Former) Anesthesia General Francesca Yo MD (Chisel Mortiser Operator) Elvira Mcmahan (Provider) Jaleesa Alvarenga (Provider) Estimated Blood Loss 300.0 mL Urine Output N/A Findings Severe valgus right knee osteoarthritis Specimen(s) None Complications None Technique Patient taken to the operative suite. Transferred to the operative table. Underwent anesthesia induction and intubation without complication. Proceeded to isolate prepped out the right lower extremity usual sterile fashion. We then had a timeout the patient, procedure, operative site was confirmed. We then proceeded to perform a midline approach to the knee. Dissected through skin and subcutaneous tissue. Tissues were noted to be quite poor in quality. We did perform a medial parapatellar arthrotomy. We everted the patella. Made a freehand cut leaving about 14 mm of patella left. We drilled and pegged for a size 32 mm patella. We then proceeded to flex up the knee. Use our standard cut block that was made from visionary templating. We cut the distal femur. Minimal cut on the lateral condyle as expected due to the severe valgus deformity. We then proceeded to sublux the tibia anteriorly. We placed the tibial cut guide on the tibia. We made our cut. We then checked with extension blocks were easily able to get a size 9 into the extension space. We then proceeded to place our 5 and 1 distal femur cut back to the prior pins that were drilled with our visionary template. We cut our 5 and 1 cut. We then placed a #5 femur on the distal femur. We then subluxed the tibia anteriorly. Selected a size 4 tibia which was placed at the medial third rotation. We then drilled and punched for the keel. We then trialed. We tried with CPS polys. [place]rose that size 13 gave us the best stability with full extension. Patella tracking was excellent. We then removed all of the implants. The medial and lateral meniscus were removed. We proceeded to remove any bony fragments left within the knee. The posterior capsule was injected with total joint cocktail. Aqua Mark was utilized to maintain hemostasis. We then proceeded to copiously irrigate the knee and made clean bony surfaces. The final implants consisted of a size 5 femur, 4 tibia, 32 millimeter patella. These were implanted with cement. Once the cement polymerized we trialed again with multiple polyethylene. [place]rose that the size 13 CPS gave us the best stability as well as range of motion. We implanted a size 13 CPS poly. Knee once again was copiously irrigated. Any excess cement was removed. Vancomycin powder placed in the wound. The arthrotomy was closed with 1 Vicryl in 1 strata fix. Noted to be poor quality tissue. Subcutaneous layer closed with 0 Vicryl 2-0 Vicryl followed by a running 3 oh strata fix in the subcu layer followed by Prineo dressing. Patient extubated taken the PACU in stable condition. Postoperative plan: Patient will be weightbearing as tolerated. PT OT eval on the floor.Start DVT prophylaxis postop day 1. Will consult hospitalist for medical management. Anticipate discharge to home tomorrow Tourniquet Time Tourniquet Cuff 30x4 [id number], Thigh (Right), Total Time 1 Tourniquet Cuff 30x4 [id number], Thigh (Right), Total Time 5 Tourniquet Cuff 30x4 [id number], Thigh (Right), Total Time 50 Tourniquet Cuff 30x4 [id number], Thigh (Right), Total Time 56 Settin mmHg Settin mmHg Settin mmHg Settin mmHg Sponge/Needle Count Complete Fluid Count 600 cc crystalloid Catheters, Drains, Tubes None Electronically signed by Johny Perdomo DO 03/04/25 13:28 EDT Normal [facility] XR Knee 1 or 2 Views Righton 03-04-2025 XR Knee 1 or 2 Views Right EXAM: XR Knee 1 or 2 Views Right HISTORY: Pain in joint, knee, COMPARISON: None. TECHNIQUE: 2 view radiograph of the right knee. FINDINGS/IMPRESSION: Status post total right knee arthroplasty. No acute hardware complication. Stable alignment and appearance of the osseous structures. Expected postoperative changes of the soft tissues and joint spaces. Final Dictated by: Pal Hewitt MD Dictated DT/TM: 03/04/2025 4:29 pm Signed by: Pal Hewitt MD Signed (Electronic Signature): 03/04/2025 4:30 pm (If Report Is Signed, Electronically Signed in Other Vendor System) Normal [facility] Progress Note-Nurseon 2024 Progress Note-Nurse CALLED AND SPOKE WITH ANNIE REGARDING PATIENT/CASE - WITH SYNCOPE EPPISODE/FALL/INJURY (AUGUST 2024) WHICH RESULTED IN BRAIN BLEED. PATIENT STATES WAS RELEASE OF CARE BY NEUROLOGIST. CALLED AND FAXED REQUEST TO DR HUYNH DATABASE ADMINISTRATION ASSOCIATE TO REQUEST THE FOLLOWIN. NEURO CLEARANCE OR NOTE STATING PATIENT RELEASED FROM THEIR CARE/NO LONGER NEEDING CARE 2. PCP CLEARANCE WITH PROGRESS NOTE 3. LABS 4. EKG 5. ANY OTHER CARDIAC TESTING PATIENT HAD 6. LAST CARDIOLOGY PROGRESS NOTE Electronically signed by Dacia Rosario 02/25/25 15:30 EDT Normal [facility] Basophils Auto (Bld) [#/Vol] Ordered By: Johny Perdomo on 02-10-2025 Basophils (Bld) [#/Vol] 0.1 10 3/uL 0.0-0.1 [facility] Basophils/100 WBC Auto (Bld) Ordered By: Johny Perdomo on 02-10-2025 Basophils/100 WBC (Bld) 1.2 % 0.2-2.0 [facility] Eosinophils/100 WBC Auto (Bl d)Ordered By: Johny Perdomo on 02-10-2025 Eosinophils/100 WBC (Bld) 2.8 % 0.9-7.0 [facility] Erythrocyte distribution wid th Auto (RBC) [Ratio]Ordered By: Johny Perdomo on 02-10-2025 Erythrocyte distribution width (RBC) [Ratio] 14.2 % 11.0-15.0 [facility] Estimated glomerular filtrat ion rate (GFR) non- AmericanOrdered By: Johny Perdomo on 02-10-2025 GFR/1.73 sq M.predicted among non-blacks MDRD (S/P/Bld) [Vol rate/Area] mL/min/{1.73_m2} >=60 mL/min/1.73m 2 [facility] Globulin Calc (S) [Mass/Vol] Ordered By: Johny Perdomo on 02-10-2025 Globulin (S) [Mass/Vol] 4.6 g/dL [facility] Glucose mean value [Mass/vol ume] in Blood Estimated from glycated hemoglobinOrdered By: Johny Perdomo on 02-10-2025 Average glucose Estimated from glycated hemoglobin (Bld) [Mass/Vol] 88 mg/dL [facility] Hematocrit Auto (Bld) [Volum e fraction]Ordered By: Johny Perdomo on 02-10-2025 Hematocrit (Bld) [Volume fraction] 38.0 % 36.0-48.0 [facility] Hemoglobin A1c percentageOrd ered By: Johny Perdomo on 02-10-2025 HbA1c (Bld) [Mass fraction] 4.7 % 4.5-6.2 [facility] Comment on above: ADA RECOMMENDED LIMI T 4.0 - 6.0ADA THERAPEUTIC TARGET < 7.0ACTION SUGGESTED> 7.0 Hemoglobin [Mass/volume] in BloodOrdered By: Johny Perdomo on 02-10-2025 Hemoglobin (Bld) [Mass/Vol] 12.8 g/dL 12.0-16.0 [facility] Laboratory - Chemistry and C hemistry - challengeOrdered By: Johny Perdomo on 02-10-2025 Albumin [Mass/Vol] 3.0 g/dL Low 3.4-5.0 [facility] ALP [Catalytic activity/Vol] 265 U/L High 46-116 [facility] ALT [Catalytic activity/Vol] 50 U/L 14-59 [facility] AST [Catalytic activity/Vol] 50 U/L High 15-37 [facility] Bilirubin [Mass/Vol] 0.8 mg/dL 0.2-1.0 [facility] Calcium [Mass/Vol] 9.2 mg/dL 8.5-10.1 [facility] Chloride [Moles/Vol] 103 mmol/L 98-107 [facility] CO2 [Moles/Vol] 33.4 mmol/L High 21.0-32.0 [facility] Creatinine [Mass/Vol] 0.87 mg/dL 0.55-1.02 [facility] GFR/1.73 sq M.predicted MDRD (S/P/Bld) [Vol rate/Area] mL/min/{1.73_m2} >=60 mL/min/1.73m 2 [facility] Glucose [Mass/Vol] 90 mg/dL 74-106 [facility] Potassium [Moles/Vol] 3.9 mmol/L 3.5-5.1 [facility] Protein [Mass/Vol] 7.6 g/dL 6.4-8.2 [facility] Sodium [Moles/Vol] 140 mmol/L 136-145 [facility] Urea nitrogen [Mass/Vol] 23.0 mg/dL High 7.0-18.0 [facility] Urea nitrogen/Creatinine [Mass ratio] 26.4 mg/mg [facility] Bilirubin Ql (U) Negative NEGATIVE [facility] Glucose (U) [Mass/Vol] Negative NEGATIVE [facility] Ketones Ql (U) Negative NEGATIVE [facility] pH (U) 6.0 [pH] 5.0-9.0 [facility] Specific gravity (U) [Rel density] 1.010 1.005-1.025 [facility] Urobilinogen Qn (U) 0.2 {Diana'U}/dL 0.2-1.0 [facility] Laboratory - Hematology and Cell countsOrdered By: Johny Perdomo on 02-10-2025 Immature granulocytes/100 WBC (Bld) 0.2 % 0.0-0.5 [facility] Laboratory - Specimen inform ationOrdered By: Johny Perdomo on 02-10-2025 Appearance (U) CLEAR CLEAR [facility] Color (U) YELLOW YELLOW [facility] Laboratory - UrinalysisOrder ed By: Johny Perdomo on 02-10-2025 Leukocyte esterase Test strip Ql (U) Negative NEGATIVE [facility] Nitrite Ql (U) Negative NEGATIVE [facility] Protein Ql (U) Negative NEG/TRACE [facility] Leukocytes [#/volume] correc reji for nucleated erythrocytes in Blood by Automated counOrdered By: Johny Perdomo on 02-10-2025 WBC corrected for nucl RBC Auto (Bld) [#/Vol] 5.0 10 3/uL 4.0-11.0 [facility] Lymphocytes Auto (Bld) [#/Vo l]Ordered By: Johny Perdomo on 02-10-2025 Lymphocytes (Bld) [#/Vol] 2.5 10 3/uL 1.2-3.8 [facility] Lymphocytes/100 WBC Auto (Bl d)Ordered By: Johny Perdomo on 02-10-2025 Lymphocytes/100 WBC (Bld) 49.6 % 20.5-60.0 [facility] MCH Auto (RBC) [Entitic mass ]Ordered By: Johny Perdomo on 02-10-2025 MCH (RBC) [Entitic mass] 34.3 pg High 26.7-34.0 [facility] MCHC Auto (RBC) [Mass/Vol]Or dered By: Johny Perdomo on 02-10-2025 MCHC (RBC) [Mass/Vol] 33.7 g/dL 29.9-35.2 [facility] MCV Auto (RBC) [Entitic vol] Ordered By: Johny Perdomo on 02-10-2025 MCV (RBC) [Entitic vol] 101.9 fL High 81.0-99.0 [facility] Monocytes Auto (Bld) [#/Vol] Ordered By: Johny Perdomo on 02-10-2025 Monocytes (Bld) [#/Vol] 0.6 10 3/uL 0.3-0.8 [facility] Monocytes/100 WBC Auto (Bld) Ordered By: Johny Perdomo on 02-10-2025 Monocytes/100 WBC (Bld) 12.0 % 1.7-12.0 [facility] Neutrophils Auto (Bld) [#/Vo l]Ordered By: Johny Perdomo on 02-10-2025 Neutrophils (Bld) [#/Vol] 1.7 10 3/uL 1.4-6.5 [facility] Neutrophils/100 WBC Auto (Bl d)Ordered By: Johny Perdomo on 02-10-2025 Neutrophils/100 WBC (Bld) 34.2 % Low 43.0-75.0 [facility] No Panel InformationOrdered By: Johny Perdomo on 02-10-2025 Eosinophils # (Auto) 0.1 10 3/uL 0.0-0.7 [facility] Immature Granulocyte # (Auto) 0.01 10 3/uL 0.00-0.03 [facility] Urine Microscopic Review NO [facility] Urine Occult Blood Negative NEGATIVE [facility] Platelet mean volume Auto (B ld) [Entitic vol]Ordered By: Johny Perdomo on 02-10-2025 Platelet mean volume (Bld) [Entitic vol] 12.1 fL 9.5-13.5 [facility] Platelets Auto (Bld) [#/Vol] Ordered By: Johny Perdomo on 02-10-2025 Platelets (Bld) [#/Vol] 297 10 3/uL 150-450 [facility] RBC Auto (Bld) [#/Vol]Ordere d By: Johny Perdomo on 02-10-2025 RBC (Bld) [#/Vol] 3.73 10 6/uL Low 4.20-5.40 [facility] Serum or plasma albumin/glob ulin mass ratioOrdered By: Johny Perdomo on 02-10-2025 Albumin/Globulin [Mass ratio] 0.7 {ratio} [facility] Serum or plasma anion gap de terminationOrdered By: Johny Perdomo on 02-10-2025 Anion gap [Moles/Vol] 7.5 mmol/L [facility] Coding Summaryon 01-29-2025 Coding Summary HTMLBase 64 LgqkcvstAHn5dMr+PGhl YWQ+QR8VMEXdE50wmAXo vF4gQ6DWTNqUPcryKJJE LGkHNsQwitKoSQ9xpECl ZXJu IC8+PA6sNUGwTvnzlBGn t9O4iEF5X06ecx3pTNlj rQX2UGMjQlBdqixkq8qm kNd4GUguEhynWrLx QWMlaE19YUZ7oB79Pp43 qKMvaEScl4coxTo4PlFy XEFsCOD9mZycMGmwg7Bg NRZoR95ohPTwp2X8 IGNvbGxhcHNlOyBlbXB0 nK9fSUgmrmtxh8izvthp Ovi2js60fHVrk8V1iGC8 J9HlskK9AHMkkZFj DicbsYBLlV0yfalhl4hz fvujZoIkJRPiRTk9IRc4 BWVuiUryEpPeEW57LUS5 ECIyjmDvD6BsGNJz eSwgOgA6x6F5Eo4FN6IU FltaB9OOKKQYJXzdjYH+ YD39hn28T7YmVekqFzm6 MIFnWPP3nWZ4yI3l VZYzPObkk2U4rUC8M8Mc dfRria9ip9wvDZViHYqh L04cxCFqb7S1HGTihGC5 DJTfpSniMvAmsX56 Oyc+VXUyvNyzy8PkHpcw d4oon6rnlAm2RdvuBGOt jxHptSdzBPJ0o3GuZz4c NGSapLS5dES4fJ6q MfTyMvM9XXmqD673GrZh yUUiMnsqU78rG7RprRV+ HPOsVjm3KUTdlDqtOT2s C8SuACXawspqeRVw wZpiCS1jCVAxgfrdGNXt fQ2hXBFpY2o4DsMoMnN5 MRmxG2SmXRZfjhkcBa17 zU5xGnOqEdR7GQlq B5DsuqO0BTLqoTWjVDrz MML4U32cw9I0MXZyQSAg CRJ7sBO6oG8qaMjqfihb bGVmdDsgdmVydGlj TZejBYyjL062OKPdhPvu PkNvZGluZyBEYXRlOiAg MDcvMTgvMjAyNTwvdGQ+ DYIoSQB2oAntHSJn uTZtCVlfTe8mjDyphNmu BZ3wGODrnrmpRFInjD4d JFVcoFSejGkiET6yTQFs gqtsr093TuTdTJW3 VHBelMQwT5UayM1iEfSm WZApQRMwV7CvyFVgIYds E182OQnmLqT0WTSixtRj L4XyFACvbLwjTtW4 q2H6Ak4Bp1CsmrhpY4Dt dVKuZfVpUsaqKNp7T4Kc PjwvdHI+TC84XTCoUR71 NOg5MZM4aHumYDdi VUJzX3SujA8kYzAhGWCe ZGRkOyc+PHRhYmxlIHdp ZHRoPScxMDAlJyBzdHls JN5aBl7jEQDkINIl kIacbHCfWfIuy8aeCUOc WOjxKO7hdLsmC6ZhzFR2 RDJfi5z4Fn94Q97bG4Jo dXA+QUQibGP1eIM8 lM0sPkRxUfN3MRrfH118 EfWtlKLwAyprw1diz1rw cEo0WnC0MWPedrPoiCrq HHQ8p8RbEc35Q59i IHdpZHRoPSIxNSUiIHZh rFxpnr5aaY3kRr8+PGNv oET3kNW9xP4mUnOtAtV7 UAomI778SyZssFBi Jexwt8ioz0mzaKw5EvAo WEYxfnPimUuoTHJ0d8Du Dq68U7IzcUwdu0HyGyn9 tg25eKUiu6Q5nOD3 J2CpSAQzedgfiXSpcJce FD8lKIMfxkxsKFLiiE2n FXLbT2d9HxAaEpI2BCcc I5BbpkO6ZKRiqZXi LURccFFSkT1xxujrt1es cxyxNlLcNIMcLSv7BCc0 XFHqqOvxVoHcHZV5OaB2 WKD7bSDwzN7bpIhn bxnqkO9nDom+LKA1iNAu eNLGRT9gFsduwDI+PHRk GYO7hJhxUOlpKDYysB7e FKQrU1d7XhHsSgF3 CPpzZ6IopvJ4KLXncABi GDXtpULAoP1zvvwgz9mb klzwCsKkHDGyPAl8TEy2 LWFsaWduOiBsZWZ0 IqR1XPQ1oHRjwC9kmZoa owbgkS6mPvx+QmlydGgg VXB4ENn2K1ZzQfw2OTHs kIziSO2vbJKjOTmj Xw7qzXpkqFkmKL9yDTBl rceor353WzGfh5plLVSm aYHqIIxsHLE3I00cq5C7 QBCqRHBzBZZ8cEG0 xG4fkJaykagcpYUfnQsr wyLboMzvOXloODbiY181 XQYqyVlpMlLdJGb2E4Ll Mds2KYEtcYsgMH5g bKOpEPvtJa6hzQariXou GL6tYHSfsuqlt506McZf h7jtRDZmlJPbTEahUSA7 I98ns2R5YRXcECYe CXH1hBA1pX5mbAyggdvm bGVmdDsgdmVydGljYWwt JAzbI049QLCeqUdsLxQf jVx9W3SaZgp9WOBs pTqfAU4ulCTeZMteTk3w nYbstByzHB5gYNSpnmcw m595SjXen1dvQLJyqDSb MXvrVFW7W25kl2W3 GEFaKIVcOBS6tTQ5bA3g bGlnbjogbGVmdDsgdmVy nBhuNAljCYezS639KCKw cDsnPlBhdGllbnQg KTbqFWm9E8KoXkawkTN+ WS50GSAeSV17cFTmjHLz f8amjGe6KaMqDZPwDVQ5 dUfsZVzyd4OmDKLi W23mxOVun2B4SGVxdYsp ySUdUrRhqPY9iV7zGPyz yvyns9idtjvrHfimp5ff yw68fS35Z19rAUdp ZHRoPSIzMCUiIHZhbGln zf1niB4yZm3+PGNvbCB3 nEH9lM2wAHPcHtT3HQeu O427XuExqMJwIbot o7mev7qqmEo0VfV9JPHg oiPrhBlaECL1b9XrNn60 V96wJLpdBJOjEFXaKTXr FEMfkOlvch2zuD7s Ii8+MNMlePG3bJG6mX5j XcHyAsB6JBsyI295ZcLh iGCkLkfwP96cI0DpeRH+ UFQqWpq9DYOjuJcj ZW5wtKWbSOpsTg1uDOR3 MsVrGaUpJTzuR4QdWTBh ryspaxbutGC2BWQbNMIw rO79Zy7ynDhiZVPy xYFWkZ4ttzhtd9bnlxlh QbRuECOfJRn9AFy3NNFr oOmvZqLhKZS4EkA6HHQ1 rHDyeK3ysNgrwrwq rT4fN9FtUSHsjqixBq10 tX5bGyWtPkG6ZYedLkg+ ULBKATBARQJGRVAQGZ65 I4YoOda5DZTjySen AN7sdRPrOVgiSo7eoXra jZohMH4zBIPqvdlxKNKt iJ4mMOTaqAPjbJiqPI1i OBSmbmncb378LnVr KVE6RJWttDPxW8WemY2p AhAuAEGzMYQfM3PyfUJb TItrV872FDezWxP5SJGw ieXfX2WjKYUjyXxq EhS9h0S4Wy3kRE3mCD1s OOH1GO85KT55nLWpa7D9 aNE0F9IkAPVwxwcryuoe hSA8CSJxFNNstK57 gFXnLFboNo0cx8C4d140 PFCiCDGjgN29Zt0woEef YLIqjQVAhE9imlqxo7ew cjogIzAwMDAwMDt0 OSc8EYKslYoaKaEtVPX5 OaC0QHF7qDLwjT4riRsf rfbckP3kJpq+NzcgWWVh chM3W3HfBwz7XATh pYndSZ8jaNKxYQkpXg4y qJnmrEhmHT5oSCUrnizo TLPylP9gUXIypPTfjFfy WC7oZDHhumhwe571 CkDlMXW5YBSsbIFyQ8Vp eL2sEmSvJDJuIHIiK8Uh qEXzNBlnJ281UVfbObW3 RDPsdpHyC6HyTIXg mJipZoT1a2R6Dv0LBS0X FDC6L3AqJxo6ZDKidFgi IQ2aeVKoGRrlQo5zzYle wKhrLB7hZNRcnzmc AWCqtK1aACCmmXDqnUpi BF0yUTQsbiabk421PdIj MPB2MSBqvANkZ2PewD9d HiSdHACeQEJoU1Ak eYUxOPpeY935YRdbRuX1 YNQvbeOdG1VrCMNvzCio KrO3v5F9Mx1SXVdqgAI+ EH12ok49V3VjIqeq Mgd7NGCpSMP4bGW3iC2t XSTvOEgci9N6yLM1V9Ag fyLbrn4is4irFURePFkl F32biSZsd4H8JAUl bKI9HEPxyJmxPrKezX57 Oyc+VRFpkUrnd9EeSqye g8tzf8eezCf5FeQmIFWv qhAgkStlWBP2j1Tw Df04H61aEGeqKJRyBPTm ZVBaOKIhxSonby7fjK8v Ii8+KNWutNV5nJL4sJ7n GkZdNnA9CPiaE243 AzXuyBZgEubdg7njw2eb nHu6QsBaMVHppgZmyAlo CEO2d6CwBs39W3KrqPnd t7TzIbx7oy31aOAx d1P4zTJ1G8OuRZGlgnhp eRWbtEoaTD8fOMDdbzum YHZccM7sWJXuQ5q6NtEa RfP9TJxoA5EhgiN9 ARHtaFDbEUAxqIANeZ3x ybfne2jkupnvAtZfKKZx ORj3DBc2YDWecEreCuLe DXS2XpL0QRQ2nDLi xV0ngKngorcwzE0wRpx+ UEn3k9swcVLuAO1bzBQ0 CZ13RZ47wUMid3G6iSD5 V0EpMNXlulubjfms sIG3RGFhGOHvjC97Sb9m wXcqAl0vMQGgPEW9MREy hOStV0MdiW4bMsBzHRWv DZJvJ3TulBZgTNwe U707DErkZfK5XNOhssUw E1VqKKCwwCglJaC0a6R8 Aj5GYC94CZ27WL59vXGy o9N7qHD0I7KqVDZj evykwwazwVA1KLNhXQOl xP81Jt8ejFxlDo9qMYFo WET4JPDhtROyG2AjnZ9x UoJrCANuKFClB8Mt kTWeBFwdU152PAhyXqK8 KJWttuYmL0KkMXBmdRkw FqT4e1R3Tc8PAt38CF69 VT64kITpb4H5wXS4 D5OqNLSqeezkkkszaOP6 QZDdVGYucJ92Iu4wmFbg Ip2zKWIjDFY6UZVxuYOh Q5AhpC2dMqIoTLHo EMZtF6QfpGWrRZirA458 AMrcTvF9IXUyxlFrF3Bx IJMhbDvyExL7f0C2Gv2C AGjgabt9V0KzQiro dHI+XN93ZFBqJV64jCMz tJRpc5vhaDd4UmMbTSKx NGP6vHyxKQjzh2NuUDEt J08tpWEzs8V2SDEr bGx (more content not included)... [facility] Coding Summaryon 01-21-2025 Coding Summary HTMLBase 64 QuesrwyfFMo0dHp+PGhl YWQ+FD6TUUFhJ65bbNMt sH8eB1MSDNxARwhjUBFU EGtMBmHrvwQuGC9yyCVu ZXJu IC8+QQ3nPRPmJhobyJMk y3S1cUX9K20esz5eTAxz nWB4HOBiMfBhuyyby3ky mGe2LYkaZbjkJqEp ASPaiR06LZP1lC98Ev16 uKMszDJuy5idwOa7KmYk IGHrQEC3zAprHRgos6Hw ZHRbG19huQJjk4W6 IGNvbGxhcHNlOyBlbXB0 aV7fVLqkczxgr8vfhhgk Idq6vm41eYBfc9Z0fOH5 S4EhgbC9QTPjmINl ThoolTCQyW8dfefmx5ud wtcwNfOtJIWoWXm6FOh8 PLAozJnyHtXhTG47XYD4 COVerdHoI4AgYWTw lJsoZvY4n1E7Gx4WR1EV LfhyT4OJRFXBGOeccEW+ UI90ht53L4AmLzkkQqt6 EPRoMBK7bIN8xN4l RJLkKLtvx6L0tNU3U6Gu qlRnhp2pv1hkMODlZFfl C93kdCNcs1J4SFMwxNU2 RDRxxDygHwPsfV22 Oyc+QRGnvXlxy5VhGnzm y1aul9ketRi4JhqeFYLz tiXreAmuEUJ7m6TtZv9x XHChrOL0xJY8zP4b JaGfOdX9SNxrB999DlIf aMAgFzjmK88tQ0CztCB+ YUGzZnu1ZJGfdDcoYN9o A4TnEOBizdnpeLCx kGzlIZ9rOBIzxkuaXTKx lM6bDWJqT0e1NySdHhU5 AOiiW9BoMQWwzaatAj48 bS2pSoYeXxV7UNhl W8FjzwR3UVLfyYQiSAmv VQX6U38pn1K0VMOcNERh BTN0uSV8fU3iqHqcizqy bGVmdDsgdmVydGlj QFweLWjbW986PZPoyFeu PkNvZGluZyBEYXRlOiAg MDcvMTAvMjAyNTwvdGQ+ YVZyMVJ3fBwaBDGh hYCiQLecHi8yoGqcdUle IV3hNZNoatxuAFXyvD7j OIPouWEdiAfhWQ2oYWIm gdcou295WfRkREJ5 XVEzvKMpD9LznL0mEtLo AIUmYZHzU0YkvLAoCKqc W835RLbkFvD9KICvfuNa W9HeEPOijPepJpF9 d9F3Rn1Vz4NiaglaU6Ot zYDyNcWsRibvESh9C7Qd PjwvdHI+ER41RLYgEH17 OQb7MVZ5lQiyEJmm SGHdJ7SjcI6yEgQuFRMq ZGRkOyc+PHRhYmxlIHdp ZHRoPScxMDAlJyBzdHls KQ5wHu4yWKJkGKUd hOjnqHVjLbPso4xuFZDn FRgbHP6siByaD9DlyUO5 OLTzu2m1Zx12G69wQ5On dXA+MPFwlHV9nEM1 fT1eQpZiVfI9JIbuF503 TzXdhSIiQdyqg3fyz0pj dTx6WcC7MHUqnmQgwNot VLX7j5SeQi94N87g IHdpZHRoPSIxNSUiIHZh pZbgeg2wdD6hTt9+PGNv uSG4nNQ4uW0zQoDgOgW3 IPhpK671GiIeeDIg Fmvcm1ket1pvuCd5ZoCf KDFjjtOmqWfySIA9t6Pd Bq59J7RlyBzxg1ImBak3 kw62cNIhm1K2vBK2 B0LeZXOrdazybDZtaNwh OJ0vUKDdywonFTXhfW6s XFBvB3k1PuQnZxI9KYhj C6HqbaL1ZBMdxBLt TLVxsMVSuY8tsxgck0gs kujzIhJaLCIqYSw4MXw8 KBOsjEcyWuWtYYR9VzX6 PPU7vXGroU2vlBmu beahhT3kThh+DJQ7cIMz uMDYJS9qZktstRI+PHRk BPP3qAjvFMiwTZJojP8r THVqU4w2FoXvOyI2 UBrzK0UycoR8CZTprKEc DRYuyJICjA2octwdi4ce sjdpNtMlCXHtXWu1GSo0 LWFsaWduOiBsZWZ0 JjB5STN3gYJtdL9jfXxf vnuxrR8aOmw+QmlydGgg MHS7SKx3V3EdWsd3LOUs iGwwAN6vpEOtSWhz Ki0cvCwmpKmeEM2fOVXb sivgs068EnUnm4jhNKIs jCMmOPvdKQO2Z56wb4L3 JKZpDCTrAZT6uLL5 kO0syClqmpyoxSGjmYnr tzXonSjiTSuyWOzjV020 ILPyaQpyNkZlQJs7M2Ib San8MPYvfOrnLN3h dFQyDSalRc2nhDkfhSuj XG0iUUVytapjg883JzPm c1wdGUCqwLJjUIeqBKK7 T80bd4L1YSItCSOy MYE6mDS4sR7vbCtragyl bGVmdDsgdmVydGljYWwt APdwL438WCDezTdxFoEu mNh6Y1WrFfc4JMZj jYvuIH0fiRBcUOceOf3a pYhfmYnxID6iILZtpnvg f094PxNts1cnISObaMTn GTylXUU8O17kg5K3 VCEbGHZsQQK7jMQ8jO5p bGlnbjogbGVmdDsgdmVy aAcfORiqHPmwC159QECg cDsnPlBhdGllbnQg CTpmJXw9P8TaBbovwSZ+ FU60YNOyGO98eANjoMMb e9awrYf1XvCeXLWaBKE6 oRwxNJofp0GmIPBj V21ktMEgx8X9GZNlgAru fKUzVpTfdQU9sR6aKLhe ieyxs8uvkdokFjtqh2ki xv50cK94K49pQAuv ZHRoPSIzMCUiIHZhbGln cb9ltP8gKk4+PGNvbCB3 lGU8bJ5tCDTlGrY2ZVgm F846AgZyaSKzYzze e2kay5saaRl3RwT4PHIn exWknZjgTXR0d7EgRq69 W64gQTymUHLmUNKcCBEt KANxdBgdqb3htM6m Ii8+QBFgbEX0sHZ2vG0a ZyGfFbU2NSthN748VyJw zITbFjnhM82tC5TsxDN+ QYTlJny4XPNdhZsk YP7imMVsVXyjQt9vTZW0 NgSnIfDmNAulR7QeOSNh rcmmgwxlwBB5FUPnOWRo zQ53Zr6xtAhaPANa fJZIfN8avwhoy0yjsiyv GpLjZCXyNTp2FAq7FXUo wTyyWoIkFNE2LsZ7SDG6 cTBpeW8rgPnvygbt sM5sY3YuXVOdrvabQz59 tH0hSqRoEiD2CWpzOfh+ ZKKCICVPSZJCHQXGBA07 X4RjAzu7PBZtkQxs FD9nkGYeULfpYg4ayRon ySuaGS3tXVEbkdisUGKl aL7aNATszATapPqkRH8u DTAdbtcsc929TrLb VXE0PZCghNOpE6LlnG1b GyStTBXoEITuT6CgdAEz ODynZ294WTbxEtQ1YQAs dmOtW9JpOPTnzVmy UhT9v0O5Sk9aEP7iWY1b WGO0LI17UP79qWOzl4G8 pTG1R0SyOASsqfcpzgum wYZ0YCCaJTUprC88 xIXaJXumUp4lz8O8t442 GROvAVQblN28Ac5nzRbj SMHvnBIEeJ8bynvto3qq cjogIzAwMDAwMDt0 FJj1WUHgsRlgOcJoGTH7 RpN5BZL0oGTmbH5dhAxp lbdxgR6lKmz+NzcgWWVh nwR2D3LcPtb2GYQh jMxeAA6cdNBkWMcyHl3q mCqbwMbfMN4hFUErcwfl LRPedS0dMURwjEEfaCje SB8xXSXgqbmbp214 CvVgDWH0XDKhqEXsL5Nb sW3gMlFxOBWsMLRlH5Hl yTYxNEsqG925EKvmAsE7 SQIcpaEcT8KvPNKk iSoqHyW6t9A1Wa8ZTK6L QZW4J5XyEqi8MEGxxEte LB0icUTkPLzeAh6ucHrl kAdkNN0zDYPzxcvb AJJotM8nBVKmaLWnvAnd QV6lHDSphzmit647GuTp BVE6IZXpkDYfH3KfqK5h WsRbLOAqYVPoZ5Oy kSBiMEbuX375XTpkBlN6 FKUtpxQpD2HrYUQjfVwf BpM8z2A8It3KRYwkyTX+ XY65iv18W3PgRkhr Bub7BFImZKP2kSD6yC5x JIKrOYmye5D1mYU3L4Yi pjRpwc7fe5bmGYHxIWyq T33zcMSue0J2LWOj cMC8IKYrmOdyTqTldG52 Oyc+GWIymVkqg4BoZoot k8szg9bdcAd3WqRtMTIr fbOnnCelQTW5b2Bn Jl98N22aTLujHLXkMZLw ZKGqRMXmyKfgec5gtT8h Ii8+SSFzyWZ5tSW8bB5x UbUiYjF6YXaqV853 NvVlqZYtSjphc7asj9gc mNb9TmJdSRUpxuGlsGwz AEF1s1OhWj26A1MfkNjo u8BkSrp2zk68eMGz v9Q5zDI1O3MuUXAqrfsi uXLcjRtwLL0uCSAmltlk EFDzfB2rEFXxM2c1PmCl MdA4TAdyY1PuuwZ0 ELRzhMFwNEXykLUKgV7a bhipr8llhcwhOsTsDOPi VRq0MCc2ZYWxhMiwNvXc KME2HlW3ZES4rGZb pK7izRmbevdhdO4xDbf+ VFe5v9lnnGKqAX2jkHQ9 BD10TX55kWPcr7O6sNT0 N9EwDSOxbyjjhehs xHW9QJFaNVSwuG39Uc0v nVuvTh6pPZIsNDL4ZTQk jJQuG5OjoG3jZsMyOKMp XQTzO1AdgEWeXFcj J980BVfaTvS8HPZmkxJc Q5OePVPbsHljXhZ5o4P3 Wh9AHA49GF79SY88jDBn v4V4fDU7J7XsMCIr lxwydsddnBO0SLHeILGo uZ20Sk7hlIlwYs1yTXXd DQK1XAEelKVxV3IlzX4c FoQhCZTlWGBcU6Wr bCVkLWduH011DGxoCnZ1 REVhjpXcB3SdLZSomEgt JsD6h2M8Tw9IKa82AD15 XM13zGCzu5N9wHM4 W0JrGEGqygiinluxfXW5 XFHnGNJqpE26Bo4ggZjz Kv5hNROhTQE1XIXhlBMv U9PmiL4iQcZuEDHa UUJbK3AvxBPxGGjmJ375 JWlrQoU2GOGrpdJyI2Rp RSUgkNntIsV0k1Q9Th8M XJbufff4B8AfOapn dHI+UE55JYFtSR51qZKm iSReg0gisYr6MdAhMCWc GBG7yLztTWxvl4SgWEKl R72fnIUyx1V9GWVq bGx (more content not included)... [facility] US Injection Spider Veinson 01-21-2025 US Injection Spider Veins EXAMINATION: US Injection Spider Veins HISTORY: Varicose veins of bilateral lower extremities with pain The risks and benefits of the procedure were explained at length to the patient and informed written consent was obtained. The procedure was performed under sterile technique. The patient's leg was wrapped with Coban and postprocedural verbal and written instructions provided. Saeid Godinez RN was present and assisted. SCLEROSANT: 2mL 0.5% Polidocanol. VEIN(S) INJECTED: 26 veins in the left leg. VISUALIZATION: Ultrasound was not used to visualize the sclerosant. ANESTHESIA: Supercooled air. COMPLICATIONS: None. Final Dictated by: Dario Bess MD Dictated DT/TM: 01/22/25 7:26 Signed (Electronic Signature): Dario Bess MD 01/22/25 7:26 am Technologist: MARYAM [facility] Patient Handouton 01-20-2025 Patient Handout Radiology Sclerotherapy, Care After After sclerotherapy, it is common to have swelling, bruising, and soreness. You may also have: ? Some changes to skin color. ? Slight bleeding from where you got your shot (injection site). Follow these instructions at home: The instructions below may help you care for yourself at home. Your health care provider may give you more instructions. If you have questions, ask your health care provider. Injection site care ? Follow instructions from your health care provider about how to take care of your injection site. Make sure you: ? Wash your hands with soap and water for at least 20 seconds before and after you change your bandage. If you cannot use soap and water, use hand commercial management accountant. ? Change your bandage. ? Check the area around any injection sites (injection areas) every day for signs of infection. Check for: ? More redness, swelling, or pain. ? More fluid or blood. ? Warmth. ? Pus or a bad smell. Activity ? Do light exercise every day, as told by your health care provider. Walking or riding a stationary bike may be good options for you. ? Return to your normal activities when your health care provider says that it is safe. Ask what activities are safe for you. General instructions ? Take xlno-sot-mkfikuw and prescription medicines only as told by your health care provider. ? Do not use lotions or creams on your legs unless your health care provider approves. ? Do not smoke or use any products that contain nicotine or tobacco before the procedure. If you need help quitting, ask your health care provider. ? Wear compression stockings as told by your health care provider. These help to prevent blood clots and reduce swelling in your legs. ? Wear loose-fitting clothes on the treatment area. ? Avoid being in direct sunlight. This includes avoiding: ? Sun tanning. ? Using tanning beds. ? Do not use hot, wet cloths or any form of heat near the injection site. Contact a health care provider if: ? You have more redness, swelling, or pain at any injection area. ? You have more fluid or blood coming from any injection site. ? Any injection area feels warm to the touch. ? You have pus or a bad smell coming from any injection site. ? You have a fever. Get help right away if: ? You have leg pain that gets worse when you walk. ? You have redness or swelling in your leg that is getting worse. ? You have trouble breathing. ? You have chest pain. Summary ? Swelling, bruising, and soreness are common after this procedure. ? Check all injection areas every day for signs of infection. ? Wear compression stockings as told by your health care provider. These stockings help to prevent blood clots and reduce swelling in your legs. This information is not intended to replace advice given to you by your health care provider. Make sure you discuss any questions you have with your health care provider. Document Revised: 10/04/2022 Document Reviewed: 10/04/2022 [employer] Patient Education ? 2024 [employer] Normal [facility] XR KNEE RIGHT (MIN 4 VIEWS)o n 01-18-2025 XR KNEE RIGHT (MIN 4 VIEWS) EXAM: XR KNEE RIGHT (MIN 4 VIEWS) HISTORY: Osteoarthritis of right knee, unspecified osteoarthritis type COMPARISON: 05/07/2024 [place] IMPRESSION: FINDINGS/IMPRESSION: 1. Kellgren-Jose Armando grade 3 osteoarthritic change right knee. 2. Grade 2 osteoarthritic change left knee. 3. Moderate right patellofemoral osteoarthritic change. 4. No joint effusion, fracture, or chondrocalcinosis. Interpreted by: Isaac King Jr., MD Signed by: Isaac King Jr., MD 01/18/25 Final result [facility] [place] XR Knee - right 4 Viewson FINDINGS/IMPRESSION: 1. Kellgren-Jose Armando grade 3 osteoarthritic change right knee. 2. Grade 2 osteoarthritic change left knee. 3. Moderate right patellofemoral osteoarthritic change. 4. No joint effusion, fracture, or chondrocalcinosis. [facility] EXAM: XR KNEE RIGHT (MIN 4 VIEWS) HISTORY: Osteoarthritis of right knee, unspecified osteoarthritis type COMPARISON: 05/07/2024 [place]rik [facility] Isaac King Jr., MD - 01/18/2025 EXAM: XR KNEE RIGHT (MIN 4 VIEWS) HISTORY: Osteoarthritis of right knee, unspecified osteoarthritis type COMPARISON: 05/07/2024 [place] IMPRESSION: FINDINGS/IMPRESSION: 1. Kellgren-Jose Armando grade 3 osteoarthritic change right knee. 2. Grade 2 osteoarthritic change left knee. 3. Moderate right patellofemoral osteoarthritic change. 4. No joint effusion, fracture, or chondrocalcinosis. [facility] (narrative) [facility] XR Knee - right 4 ViewsOrder ed By: Isaac King on 01-18-[address] [facility] Work Phone: US Injection Spider Veinson 01-13-2025 US Injection Spider Veins EXAMINATION: US Injection Spider Veins HISTORY: Varicose veins of bilateral lower extremities with pain COMPARISON: No relevant comparison available. TECHNIQUE: The risks and benefits of the procedure were explained at length to the patient and informed written consent was obtained. Saeid Godinez was present and assisted. The procedure was performed under sterile technique. The patient's leg was wrapped with Coban and postprocedural verbal and written instructions provided. SCLEROSANT: 4 cc, 0.5% polidocanol VEIN(S) INJECTED: 27 veins in the right leg VISUALIZATION: Ultrasound was not used to visualize the sclerosant ANESTHESIA: Supercooled air COMPLICATIONS: None IMPRESSION: Technically successful sclerotherapy as described Final Dictated by: Quentin Hernandez MD Dictated DT/TM: 01/13/25 12:03 Signed (Electronic Signature): Quentin Hernandez MD 01/13/25 12:04 p Technologist: MARYAM [facility] Patient Handouton 01-11-2025 Patient Handout Radiology Sclerotherapy, Care After After sclerotherapy, it is common to have swelling, bruising, and soreness. You may also have: ? Some changes to skin color. ? Slight bleeding from where you got your shot (injection site). Follow these instructions at home: The instructions below may help you care for yourself at home. Your health care provider may give you more instructions. If you have questions, ask your health care provider. Injection site care ? Follow instructions from your health care provider about how to take care of your injection site. Make sure you: ? Wash your hands with soap and water for at least 20 seconds before and after you change your bandage. If you cannot use soap and water, use hand commercial management accountant. ? Change your bandage. ? Check the area around any injection sites (injection areas) every day for signs of infection. Check for: ? More redness, swelling, or pain. ? More fluid or blood. ? Warmth. ? Pus or a bad smell. Activity ? Do light exercise every day, as told by your health care provider. Walking or riding a stationary bike may be good options for you. ? Return to your normal activities when your health care provider says that it is safe. Ask what activities are safe for you. General instructions ? Take rfsj-obc-cgjxnby and prescription medicines only as told by your health care provider. ? Do not use lotions or creams on your legs unless your health care provider approves. ? Do not smoke or use any products that contain nicotine or tobacco before the procedure. If you need help quitting, ask your health care provider. ? Wear compression stockings as told by your health care provider. These help to prevent blood clots and reduce swelling in your legs. ? Wear loose-fitting clothes on the treatment area. ? Avoid being in direct sunlight. This includes avoiding: ? Sun tanning. ? Using tanning beds. ? Do not use hot, wet cloths or any form of heat near the injection site. Contact a health care provider if: ? You have more redness, swelling, or pain at any injection area. ? You have more fluid or blood coming from any injection site. ? Any injection area feels warm to the touch. ? You have pus or a bad smell coming from any injection site. ? You have a fever. Get help right away if: ? You have leg pain that gets worse when you walk. ? You have redness or swelling in your leg that is getting worse. ? You have trouble breathing. ? You have chest pain. Summary ? Swelling, bruising, and soreness are common after this procedure. ? Check all injection areas every day for signs of infection. ? Wear compression stockings as told by your health care provider. These stockings help to prevent blood clots and reduce swelling in your legs. This information is not intended to replace advice given to you by your health care provider. Make sure you discuss any questions you have with your health care provider. Document Revised: 10/04/2022 Document Reviewed: 10/04/2022 [employer] Patient Education ? 2023 [employer] [facility] Coding Summaryon 01-05-2025 Coding Summary HTMLBase 64 VtiidlbqEMi9gYk+PGhl YWQ+CQ9HDQKmC15vvBTm nD8oU7MADOqKFmitPQNW RGsOGoNxmnVkFS3umSSa ZXJu IC8+UC4oKKAmJuhpwHLj k3V9nHF5R42fnh9oKJqv gKK5SRHdPaVqpzcio6pc tCi7XZzhBnmhHjJs SJMawB59RKC4bT84Jv27 rSExtAArx7zhzGd8HkEz MXDyMOJ0sZkcXAdsa0Gp SGXqL27aaBScc5M0 IGNvbGxhcHNlOyBlbXB0 sY7mNHgrmibex8vnfqjd Gum4kq74vOZke1L7nOF6 Y0ZbteD2VOCkaJIt LqwlvAGWjX7xbyhpt1tw grehTcNqTZYrHHf7IJz1 TLRpcTkzJyFqNX14GMV1 LWRnrmOfH7SzKFHx uDauAuS4g5G8Td6GZ2HC DtemN7VTNGVOOPhxxCX+ AO49no50O3IdKnfsExc0 JBXxTHD7gRV7pH6n PVHkNVekn5I7pSF6E7Le pyKiea9wl2gyHTVaXWvx T12imCVko6O8ZAMxoJM9 UZCugZojEpLcmX39 Oyc+RWWytYbqe9MrGyjm a9dcs9scoSg3DiqsGVHv tpThsGizGUN6a3KhIv5j RNAnrAD5wXV6oX0d IkCsWrU0WBfnN351WkCp vGSjWpuaT54xU5MbxEL+ KMVxHwn5NVOluDhoGE2q F4PjBOJgqlldpTHp wZxpIP1fLLCwujaiSUVe kI6wYYLuC6r1XxRdAcV7 GWipQ3JoUFStrqxfEr64 rW4qXxXaXvC2UXkj Q6WnebC6WUOpcMJcBLaq ELB6Q01kx0B7MTVeSNDq WPY8zDA9eG0oyBfpoqlc bGVmdDsgdmVydGlj YYeuOYrlN101OTAddKfd PkNvZGluZyBEYXRlOiAg MDYvMjQvMjAyNTwvdGQ+ DQKjFDK0lBjpJIVc aSYlJNelFb7gbGihmVip HC6uJLVygqcnFPMmyS2h IMGyzQXucQvjTP9sHCWi qdqrv453AsDmPMH1 LAHjqYUpQ3LltC8cNoKm AZUlQJZxX4CbfHEsNNua K148IAhtGhN4QADixtSg K6CwKGNdeGroJzS7 d0M3Rm7Kw7LrjtipH5Kg gRWnNbZzEqaxWOy6E7Wj PjwvdHI+NL64LRQkIW40 TIl3LSS7zPxqVLvy OBCvR2OwtF0yYtJbPNUe ZGRkOyc+PHRhYmxlIHdp ZHRoPScxMDAlJyBzdHls EI5eGx1tELEnDKXr jYorwFNbMsTyu0sbBXCo LFdnSC9qpAnbS6LvfLN2 WUMxs7l3Hc36D08rW4Dn dXA+VPQtuVX2aGJ1 xP0lEkVoCuU0SCrwV266 GhQbfTCwOnfqz7xle9qq pKq7MvZ4KIMirxKepHak NYI2k7QzXo32Y62p IHdpZHRoPSIxNSUiIHZh mAuubg6bhN7gXx6+PGNv aSD1pAU0zB0jApKhKtA6 NFikR029YaGkfLVw Oorku3hkt8xngCw6SeCi UNLlgaHizXesENH4a6Iq Te02E9ZzlBcxt6IcAqx6 vo40hVIpq7K1hKT0 J8ZmMYWqbjtmyQLjwAqf EL1vSLRkpdloVZRrbI2f DXVwW1r5YzUqChH4SHdl C8UityN1QPMfsNZf PCUoiDJWhS9kyzskt8ei pkonWnXnPTPxIFz1KEa9 WKGznIhmLhYbIFV9BiB2 PPO8eAGqpJ5fpMxd tkfpqN1vAec+UQI8mGVb xCPPZK7aRpembPH+PHRk EDK5wLyhMQoqFATjqE1y BTOvY2z6GaFgYqM8 IRsxF4QsetU9SMZemQHr XAQtbZDUfU8wzxguf2ky eonaYxHwDEFoHZq6VXl7 LWFsaWduOiBsZWZ0 UzF1RIB8kAFzgJ4ouFjo bsnchP4nZyw+QmlydGgg DYT4NFb5I1LvNpi9DCEp iVadZD3iaSTxNAgd Gc4izHoowCnvYS2xOKTm ssoyy566OgNcu7jfBBOp eWYiIIirEHW8I63ok9A5 DBZuLALzCVA7eRX3 zB8ueBkpaebeiLPnvDmi wsSbpCsgCEadPErcN035 NLQdcZgqEkVxEFq0H0Wn Cvi9KLAiaHbiCH2g xWMiUDeoFw9fnSmuzHrt LR7eSEWygmzwo184FyEp h5caDLRxiKBfPPzqUAK3 M26ms5M8BCGxMTFk SWG8tLT9kQ1icLodumlu bGVmdDsgdmVydGljYWwt USxxN031JWWmcVnoUmXm qGt4S7JhSir8NMBk oHdhBH9psUYhBNjyCn8g oAanaYccDF3eFNLxnxpm o692RsVxy2kwBXLuvGOg DYjlPGV5L14yi6N2 KPJfHURlLTW8gIL4vD3f bGlnbjogbGVmdDsgdmVy wWmjRUmiSDohY182XTMb cDsnPlBhdGllbnQg HDaiFDp8D3AqLpbhkAO+ SN52GDPuLR68gLGgfTSr e0csfZl6XfMpYYXiKOR7 yDhoWXcib8WuYPFy H33eoHShn3S0SRNrfSii qENgWdAmtXT1xQ6nKQde ukjfq9qnunbzOoddb1pq tn26wQ24M90sVSfv ZHRoPSIzMCUiIHZhbGln bp5ffI8lLu1+PGNvbCB3 yVL7mO6bUTQoZrK9BLhv Z303EpExaUIuXxcy r1mch8kumVf0RjQ8AABi heUbmOzmKEF6b6LcKx32 R00fBLiwHEYvVZEdLWAh KPWcdHzfrp4hhN5d Ii8+SRIdjSM2rAK7fZ6l HtBwPaD5LOysT309LyFd gYDoAqnnU90lH4HbmSI+ VNQrZbs2MIJsyYnc FG0ypBCjFKshVh5aBLX5 MtDcZnJvJFplK2BkAFCz bjjtotgupRZ7RCEeWPDd nT99If0qhRlkTBBj aEZGbM3vmrkbz4pefbdr KjHpMFFfTWk5ZLy3CMRa rWruGgQpBGK0VdU6RQG5 mNBvcX6atAdnfxob oT2wP0OsDGKepkzvFr60 pE9vDvCnUoJ2AHxiLxs+ DGYHQRZLRJFDJMBMDV74 U0ToTai6FEZmtIzq BP8paUWnBJuiTk7xoCww aBsuKF8nISFrzewkVQWw yQ1gLGJptFLdgMmmOC5a VYEeapatm466BxKr GRW3NSXqtLBjG9QfbV2w RhFnWOJhAEIvB3DzjONr QLtdP187VMqwXgL7SYFl zsUeZ9ZxICUopAbt WlP8r9S7Sf9bAL6bPH3n BOH8HO34UD21bNMvn9Y9 qPT2C5DkEIOmdlzskvfr pTE6BEPnURPypG39 eGGsPQdlHb6dx9D5a769 AQWsHNGzhO33Ur8ezSyn WPPwgJEKaS0xgeuza6pd cjogIzAwMDAwMDt0 SMk7RKJfyVvfZbOhQTP6 BwR8DPY4cNThyL3acGps qgapqM6sYjr+NzcgWWVh spL4N0XdJtn3QGWy lQavMR3vdIOjXVrcQl0l nLmfxTgqLH5uIBTwapqc KWOnxA5pISPdtPBjyKjl VP0rYROrzotpn071 WrBvXVC5VKGwlVPmY1Bj hL7aExDmYRPbJPSuT8Ip sNWzXUjxN332PHlcZiI0 XXQvpkBvN2EyTKXk gRqcCpS2e5L1Ec4OAK4R RDS0N1WbPoj1TZRbgSya NC4dfXPfQMyrJs8dcKva vVywFP4uNFKlwwjh ZVQpbV7nCLKjhNFykWdq ZY7tKXLlxwptf693QfCl TGT8JUMdpZVeL7UplL5v AmXfGLOrHHHwY6Fz sRWsDFprX583HGmiLqQ3 PUSsgsMvB8LiOYLmbSyo RjT0e3Y5Qz4RUEcjxHR+ EU79hp22D0EuWwsw Xxq3LOQhREB5vDQ4fM3j ZRBjYRhoq6D8dFC7E7Fy kmTioc9ef0qrLPJzWUtv X44hdAPyf5S8BAQv uUF2DOWxiWwsGwFszS56 Oyc+YSQpsWgjm3DhVdap l8vdn5epxZq2KuAyKWZo lvEkoDkcMSO1o1Jq Ue42F68iKLmkZEFeSCVl TTTnNRNbhRksfn1xfC0c Ii8+AQNdtRN5kII2iP6y NqNzHoA0ZAjiY500 VhAuwAZlJepfk7nug7jh wTx9LrUpRXYkvgJhiVrb MEG3e4TxZq13Z3ZduCye d0LtFzn4lw92lOUk z7N4gCS6Q4BlPNUpvuno zKWnyVsgVP6cWGZjqihq QYWkcP8bNJGkL3w0KzQw EuT7UGtjT2IxrsH9 BDFtjYMvZSCkpMMNbA4t xubgb4rtpwarOyYnRWSi KBr6SYg8TFTxfPszNaVt LIC5TdJ2NVZ5xNJu hK2hxPvehryjaG0wFgk+ CRa9i8tuyYMcOR4fmUV5 QH17MQ28rAVzx3Y4jFL8 F0FhKDEgypegeojn iYZ5KOYrVOBpwO24Vv1h aKojUb7vXIPdKLC7DOKu yWWhI7ZtaI0xPaYjOITw NAEnN8FteRZiSTac C023HWtiIdJ6BLVijzUn J8BhHUJuvYcuFdD8t4W8 Zu6KDH95PY23EJ49iNWj p4B4xHS4L6DuJHWg eusfuluboQW9LHIsTYUm mV92Wn0ieLiwJf3vQWLm KBK1NFHbfGZmC7PagA6r HiRvTDAsAUAuE8Li mIZkKAnxV637ZYobCfU7 OQUbudZrO9TsZWVynXjf TsJ2e6W1Ht1AVy00XV64 RG38gPQzl7G8wNW4 W8GtYSWdjqlckamslBK1 NAMgCXSpfQ49Dc7gvIqj Jf8lXAPiTES7DXIbjPMc Y4WttP5oNtKgLZYd CZCeC9PtpZWjFKdvB414 PDlmVoW8UPLkzbNbX5Gc YRKvrWtaIaI0b9U3Th9K ONifwwm7I9AgVkqd dHI+QI22CTUdSQ25mYHm mDWjd7fefNv0HwYqYCKm ZFU0uShxKWidk4SaNKWy R47fmUFab6P7CBMl bGx (more content not included)... [facility] US Injection Spider Veinson 12-31-2024 US Injection Spider Veins EXAMINATION: US Injection Spider Veins HISTORY: Varicose veins of bilateral lower extremities with pain COMPARISON: No relevant comparison available. TECHNIQUE: The risks and benefits of the procedure were explained at length to the patient and informed written consent was obtained. Saeid Godinez was present and assisted. The procedure was performed under sterile technique. The patient's leg was wrapped with Coban and postprocedural verbal and written instructions provided. SCLEROSANT: 4 cc, 0.5% polidocanol VEIN(S) INJECTED: 23 veins in the left leg VISUALIZATION: Ultrasound was not used to visualize the sclerosant ANESTHESIA: None COMPLICATIONS: None IMPRESSION: Technically successful sclerotherapy as described Final Dictated by: Quentin Hernandez MD Dictated DT/TM: 12/31/24 11:48 Signed (Electronic Signature): Quentin Hernandez MD 12/31/24 11:49 a Technologist: MARYAM [facility] Coding Summaryon 12-21-2024 Coding Summary HTMLBase 64 NujhaveeOSa8tBy+PGhl YWQ+UX7GLEIaO99spXVo cI9iT1UQYAcCEkezHWGQ EZsUSeGkvoYmWW5haLWt ZXJu IC8+ME1dVWMjDsbfaHMi i4Q9kXO2W31lni1gAKlp vNU8FZNeGiPikfgqx5zq lQh0QZmjJmilIqId KKIjjO95EVU7mF81Jw26 cTNzrGVji7iwgFv0JmSj SMUjGDC0cPvnMCzie9Ph BHHeF14loCCnl7V0 IGNvbGxhcHNlOyBlbXB0 fC0kJTzognwcl3yutusf Deg0nn98cYFvq9W5cBZ9 J4KnjtZ8PYXrqITz EcantVZCoF5kiwcsb8qv ferzEzYlLLKdDLk0ALh9 JMOrgIhuAsUxTI70HRF7 OWNiegIzH0BuYZVn kDgbTqW1c2F7Kp0ZE1ZC CqxwB8ZAWAQMNVcyjTU+ RR91kd39N0PwSntfRyq9 OLRhEQW2qPW1wS1q PQBaEIzea2S9lYF6E3Dq dpZaao6xl4rrRBEyQSvi X86jmGPkz9D2BHYgrWD5 LDYxaRyqOlVhaP70 Oyc+MKHghUrrq9RqFoet g4erf6nlmLy3YeseSIFv exZoaRykPVJ1x7TqNb5m CDZseCN8cZC4aZ3g UiEtGqD1VNphY947WrTt kHTtSlvyE73cC0ThvTA+ MYMfSgl7JUNroIokJE1j T9EgAHXuyiztbOZu oQokNO8yFTJsanhwLOAt nZ6wLXZsV3x5LrAzKtU7 RZlzX2VsRUPloaevQy09 kY0vAkXzLrD5SUqm O5VmloZ2MUKggNMrQXjm VAM8Q71mc1Y1RQScWPAq HND0sIT5wZ1goLfovmii bGVmdDsgdmVydGlj WVlyNKhwW256QDUjaOti PkNvZGluZyBEYXRlOiAg MDYvMDkvMjAyNTwvdGQ+ MRAlKOK3aCuqYLHo rMWcRIrnHn3vaWokxTrd SA2qNZHbfiesMWLwmQ8j FHZfuMVyrTfzZU6fDDQx rrqmr062ScOcOME3 LREtkBAeV1XzuV1cXbUp ZMLjYQAhS3JswHJiYGer Q073JFfwHlG0QWRwbmVy E8VcLQCieZqqUsO0 u4O4Rp7Uc8FsprscV1Uf zPOeDpMzJscvHJh4Z9Ok PjwvdHI+BJ48VVNsBA25 LWr2SAI5nRueIRts ZSHzQ8KqbG1vDnEmUVYt ZGRkOyc+PHRhYmxlIHdp ZHRoPScxMDAlJyBzdHls DQ2nRz6aZYDlORLg eDmaiONnKkQlf8fvPBZn DJwwYN9ypMrzP7IrdDN8 GRJjl5k3Ne59V55iJ3Fw dXA+BGHmfMW1jCJ3 dK5aJbGoHoS0GUzwJ334 LyAohRWlHlcag6vjf7xe oRa8RdM6USZdumHlaSkj EDG3n7EjFd65S54d IHdpZHRoPSIxNSUiIHZh wLyuae8sfZ5jXt6+PGNv bPT1zTR4vO9jPaQtMsV4 XIlsY768GqQasETf Ajvyj6ujr8dbwVk4KfSe DOSbukWzbOosOTF2s6Kr Vk96Z7UqkFntu9GtSnl8 yz12mDQxc6K6qWA8 E3NqGJUvurorlGTpfWzo HQ5aGIItwayyVMGxgN4l PPZrF1v7RaKxVcQ3HRqt R1QwqbS2PHAkfDLy HKLwgAPFoC5hcczau0ak kzczHqAnNLPrJUs4FJp5 GPZbcPztMeDuXKT7LrW0 EJW4qTYoiD9qaGzb nacppX9pRnp+KHU1mWXn cNWMRO3kVyifbAB+PHRk UTQ4vLokDTprKOMdlB4p AFNjT1y2VrOxBrY4 VVinZ2EyrwL4DOEelAEo AGHxbAIXlN9cxhzug9mr ewiiMrUrOSMfUVl8WFz3 LWFsaWduOiBsZWZ0 KfM7PZU2lPYyzD7mwBff ezdjbK8kFko+QmlydGgg KFA3DGe9B3ApTrr8SMGq dJvqVF6qrOEfRHku Je5xoTgmdEziXY1eEMKt ufuwj754GlInm6pjZNEn xVMqOAmmFVI0Q69gu3S6 WZYnMLMxPMA8yFW3 qE7wnWlwuxqwrBIesBoc wmNlwXxzUFnzNGajI306 XVJozXjgYpOrDVf1G7Nj Nod6QFFcaDzlUR2g dZWpJGhdWj4cbKrnyRcx XU4fBJVxdxkqo148ToTk s1fyQWYzaARoSHozNHG4 P29ct0S3VXBiKOZv QQA6oZB6mQ8ovQyhzreo bGVmdDsgdmVydGljYWwt DMxoJ947XFIplQnkHyAz hKa5A1SqJht2NPHi eAwyDV4rdSLrRGfkTd1s xWfpmGtcQU2eKYGqxlea p457KiMvl3dxKDQacPWa VMseYRJ6O60ly3N2 WNGsZEVuFMR6bMU2oC1s bGlnbjogbGVmdDsgdmVy wGfdVMzaPGznQ663PAIp cDsnPlBhdGllbnQg EWukWIg4K8ShAvgsiRS+ XE14NVKzWM82gAUrsXWt j2xvsQe6KwDzNORxOHB6 lSonHGogc5TfPINu T73chJNml0U6WGMtiMqe sLThMxZerHO2fY6cHNiy jejfg9htmqswMchps7ml ed78pL83O61oDYwx ZHRoPSIzMCUiIHZhbGln wp6cdV0vDm6+PGNvbCB3 jXQ3gU4qGSDxOfM8OMub V224NnNvbOLeFxdb t3yly9mgoTc8IvR2WBBj udTrlJppXGD2h7EvSc75 Q48xJGtlVYFxSJLzINDz MJPkcEebfp2lgI0e Ii8+QKItkAE1wXB4xW6i AnKeXnB5EVlqQ087ZaPw tIHzKscvZ46xR7KclJY+ CLRaIda0CVZmfFym LN3miAOgWEhbKi1vKZO6 NjMzLmQlFMyeB6CbHOPe llmdsbxzkGR5GANbDYPe eA04Su2gfGbnHBCy uPIReY4mpyyuh0yogcrk TzQmCAPsYCx7SUx0WPHa aAtgVbNoKII6OiM3PUA3 xYNxvA0ziSxmrkxw yJ1zT5ZsDBAxoylsPa89 tA9aVmFpXjJ1PDyzQuk+ QLCOZCRVWKTDCTWWDA82 V2BbRqv8CRVjbHfc KC3cmDTzDWirCh3guVpj lOgnXA6yRHBymxxuEVHh kP7dPUQxeVDpcWmvMR9q GTHjuyphg808BiIx ZGV2EDLsuYIoW5OupE0h WeOdREKgNVBfI3JcbVBo QPfuV290OWpfOgX3PVLn ysWxG6CxIRDgdFls RbS5u8L0Xq6aQF3lPN0q JBL8HG33BV19aZKwp9W7 jNV6C8WlNLOmkwalgdgw kGV0MYGpOLBkjF11 lTDzNMrdCq4iv3C3c292 OKVnYORuvG50Le2coSak VIEdiHIQyA9ennriz4gq cjogIzAwMDAwMDt0 OHt3NQOgoGemDfPwFPR4 SrF9HHI1uADthE4rgJgq ppzioW7kOgg+NzcgWWVh neY8K8HrQeh7MXAw wRnoIF6euVAvRTmrAi2m tPwvdWnzLD5zXEXjoyku XBCjgD2qREYocNFcsLcw BO1uCWZropeyi291 WqOiPGE6JJFlrPBeM7Pv aO2mNhGwTGWzDWLlL0Yr tJCrQZnmC236PDnpDwO7 MNNdsbFgV0FrNECb qZmjJrD6e7M2Xs8PFE0T AMT1O1ZeBke8EHAdfCnn EW3lfCUfMKkfFi4abTuq cNlvMW3zSDPxruwd LSAdxH2tMUBvhEVinPcr AI3jDCOyqkrzv298QwGl KGJ4FGSojZXxM5PigU2s IbYtODGsUFVrS8Tr pTYpKTitO732OKteGhT5 KIJhyhHpM3WjEARhlMou DiD2a6X4Iw7HYXqixTD+ ZI62hq70M0UfMwkt Ubu5DTVjNJX9aLI4oL9c SFIrBRyak9J7jBT1X3Qc tjGsob6iu3xqTULtXHvz Z42xvDQax4D4AFUe dPJ5YMYurHzmMpBziL76 Oyc+FOMseVygi2SrSulc b4mzq4wykHr0ZsNwUOZd shUemZksWBY7j9Ue Rl91T56yHKcqZWVrQSEq XPXzCSTaxWywvy3dnM4o Ii8+OUYqmRZ1wGH0dS4b HfOcLmC7EYusI621 OaGteIYsSxjnz8dfs1sa qDp2XmRsKSUavcLjmVfq UUH6c7WjIr61F5ImlJnz x0WeBzn5ko14lKLj m1R7yAV4Z8EdIKWysepp iIMkqJbxMP7xRMVbobtl OUYekM3lSVNuR7v5IrFa MeZ3TEvfP9GsupZ5 XCKzsGUjOEHhjTATaV2k okpwx3fiimktMdDdEAZe IDd2KWt3ZYJyoHqpCiUo MOD5JyR2RYS7sFMy dT4ofAdzpnnhgH2hGtf+ TEb9a4bhqHDwBX9fiEP2 PX57AJ39dSUdl8Z6mRW5 W4CuBASzjhxnakki vDX1IGOaKNGyoP77Nd2j wEhkLc2rMURdNLR8HOYv wBHjQ6DfbN2eAoXjQHEc AXJlP7EudRChJImf U543IMrxNwC3WKEfzkNs N2OmRODyuQqeAtY2k6I8 Ju0KLS16PQ54GG98oLUr p4I5kTO7K1LpRKZf wjpsymissZK2LNKdMDAx uY67Ep2ykKmjYm0jMCAb ZSE5PPRjdFCfL6EwqY9o BeVoZPJkOIWqB4Sa vARmYZdlG582CCrdFfO4 KTHkkkPzH8AmYLMjcOpr MxE2n9E0Vi9QVy72RV74 NU53zMPft7I4mCJ2 B9FzVIObuqcxtoyjpWC8 LYTdOUOuzE55Pa4mdPlp Wz1eZQEoPJI0VMGtqWFl N3YkpF0eTrDgDJRn HMUtY0IbyQCnVFdjS488 FVhpGwK5IGSayoZxZ7Bs KTLdvPikWuK7p3H7Et9T TQxdcfu6A2XnPjsl dHI+MZ45YRPiWH38mCMj dXEwz2frbLv3MjKeKSYv RTD3gIzuWDfnj8SbCFMe F60esBPme8K0SMAb bGx (more content not included)... [facility] US Injection Spider Veinson 12-16-2024 US Injection Spider Veins EXAMINATION: US Injection Spider Veins HISTORY: Phlebitis and thrombophlebitis of superficial vessels of left The risks and benefits of the procedure were explained at length to the patient and informed written consent was obtained. The procedure was performed under sterile technique. The patient's leg was wrapped with Coban and postprocedural verbal and written instructions provided. Saeid Godinez RN was present and assisted. SCLEROSANT: 2mL 0.5% Polidocanol. VEIN(S) INJECTED: 28 veins in the right leg. VISUALIZATION: Ultrasound was not used to visualize the sclerosant. ANESTHESIA: Supercooled air. COMPLICATIONS: None. Final Dictated by: Dario Bess MD Dictated DT/TM: 12/16/24 3:41 Signed (Electronic Signature): Dario Bess MD 12/16/24 3:41 pm Technologist: [facility] Patient Handouton 12-14-2024 Patient Handout Radiology Sclerotherapy, Care After After sclerotherapy, it is common to have swelling, bruising, and soreness. You may also have: ? Some changes to skin color. ? Slight bleeding from where you got your shot (injection site). Follow these instructions at home: The instructions below may help you care for yourself at home. Your health care provider may give you more instructions. If you have questions, ask your health care provider. Injection site care ? Follow instructions from your health care provider about how to take care of your injection site. Make sure you: ? Wash your hands with soap and water for at least 20 seconds before and after you change your bandage. If you cannot use soap and water, use hand commercial management accountant. ? Change your bandage. ? Check the area around any injection sites (injection areas) every day for signs of infection. Check for: ? More redness, swelling, or pain. ? More fluid or blood. ? Warmth. ? Pus or a bad smell. Activity ? Do light exercise every day, as told by your health care provider. Walking or riding a stationary bike may be good options for you. ? Return to your normal activities when your health care provider says that it is safe. Ask what activities are safe for you. General instructions ? Take halj-fbx-dyxfuvg and prescription medicines only as told by your health care provider. ? Do not use lotions or creams on your legs unless your health care provider approves. ? Do not smoke or use any products that contain nicotine or tobacco before the procedure. If you need help quitting, ask your health care provider. ? Wear compression stockings as told by your health care provider. These help to prevent blood clots and reduce swelling in your legs. ? Wear loose-fitting clothes on the treatment area. ? Avoid being in direct sunlight. This includes avoiding: ? Sun tanning. ? Using tanning beds. ? Do not use hot, wet cloths or any form of heat near the injection site. Contact a health care provider if: ? You have more redness, swelling, or pain at any injection area. ? You have more fluid or blood coming from any injection site. ? Any injection area feels warm to the touch. ? You have pus or a bad smell coming from any injection site. ? You have a fever. Get help right away if: ? You have leg pain that gets worse when you walk. ? You have redness or swelling in your leg that is getting worse. ? You have trouble breathing. ? You have chest pain. Summary ? Swelling, bruising, and soreness are common after this procedure. ? Check all injection areas every day for signs of infection. ? Wear compression stockings as told by your health care provider. These stockings help to prevent blood clots and reduce swelling in your legs. This information is not intended to replace advice given to you by your health care provider. Make sure you discuss any questions you have with your health care provider. Document Revised: 10/04/2022 Document Reviewed: 10/04/2022 [employer] Patient Education ? 2023 Followap. [facility] Coding Summaryon 12-09-2024 Coding Summary HTMLBase 64 CxrykndiLYu2yTv+PGhl YWQ+IP1PCEMkO91bjEMj sU2eH2KQLOeBCibdLFDB YUiDEbXzjaIoIU0emQXy ZXJu IC8+BK7rXRMxVlmrfOOr t4C1oXH3F92pge7oGSyv cVH4FHAiDaLvgspfa2ol nPw1KSroKqohLhVw OTKihV46UOR7jZ44Kj62 oTNlyOEua2phpUu1FuIn JMLyICO4yTydAJqks2Fl PIAaK41jqQQib1E7 IGNvbGxhcHNlOyBlbXB0 nJ1iEVoquekjd2ilbmdo Ojr7nd36kAYwa2R1pMB5 Y2TykoE9DNGdqAFj TltbmGFPaY8dwpkzr1pm izgkLyAjHMNcOFz7OVz4 ESNrzRngFkToOL55RYZ7 KEJwsgHfC2CdZXXt sMqaZnZ6i2M1Qu5EJ9AR NbhpE1EYNAZYQEnjuEZ+ IU70qy62M1HlQoobEam5 UAZsGEY5vAO2lB8z ZEAlLMlfa9S7nBO3X3Ih hwQcue2ym7urLKMwCNfc O14bnFNif8J9JMDvzXD2 VFJtlAygOjQeyX22 Oyc+YMAvdJakg8PoCvxf d4pja8qicCs4DqrpEAEv hcIhlWsnMKQ5r4BdKt9z BMFsmOL3rYU0xG5c WsIoHzH5QSrkK770RuDb nINnBiccY96dQ5CqdQZ+ JGWiEds2BGHkgHghOM8x A9VnPTPjqkicjHIw dFcxJB9uUNGsodkeRUEf eI4oFJBrM9e4KgXqMlI6 GXexU4NlDUOpfxbnPj24 mO5eCuTzLoJ9WXvn U3JfbdC8EUBljOYiYEpj TGQ7S66oe8S7EHQdYHZs YMY9dER4iN1bjCkkvimy bGVmdDsgdmVydGlj GOetQCwsY984BVCeeMlz PkNvZGluZyBEYXRlOiAg MDUvMjgvMjAyNTwvdGQ+ KJWyJZP1aVxqNGPf vRDiCTxjFh7bzJgfzRst JE7mRCGxjnmzWYZowU5r QWXjoKHehNlsGZ5vQOEi iugik809TlQsMBM2 QQNpmYIsD4NpiU2fWlYp VJUlMGDlD0GyzJZzBYwt A756QLzkDxY0VOGiojTz E6AhYNMtjHwwEaJ0 n5W1Qg0Kw4GjrcdpY3Rx mRZzRtJvSwtsYSn4S2Ug PjwvdHI+KB38VEZbVB07 AXn4AQP5rTplUNve FSQtN4HgbX1zZcJiQACk ZGRkOyc+PHRhYmxlIHdp ZHRoPScxMDAlJyBzdHls AN7nTl8cQBDaUHFa uCsqhRNqBsDhf5wcECXw AWntNV7txPxwA6WftBH0 SFTxs1g3Gf09X87nT9Sj dXA+BAOhdJX0pFG5 yM7xXjEvYjK4IKvaX562 JxAatNQeLfdfj8zzx0qv bUf7MwV7YGVleoMlkJwd JBJ8h0RgXw68O17p IHdpZHRoPSIxNSUiIHZh uPwxry4kmB9nJc2+PGNv ySS1iWN5sI3pNsEuOkO4 ZRgcI285DlVuoJLx Lfowj9xaj9qxmAt3DvFk OUFshfRkuUwhJRU2k1Xm Ti19P5JukCqzq2WzLow4 yv68pEWur1Y4xXI9 J2AcNMUurfpjsORahYss TH0aZLSgtoeqSKPbdY8g BLDfI2h0ZnKvJvL5HItp T3YfvnF0GBZzoZUk DPWzgKBHyE5cqhnep0rx dpucTqQcZRNoNIe9ONl5 ARSvnKbbSbMbVGE2JzY1 CRV9cUGvbE7pcVrr rmfubD6cThn+DGR9rXSy gEXGEC9cCdzbiQB+PHRk PTM2cCuvCZosIWAwkP6x DAOtN6s5ElPpGgK2 GJifY6YvcbZ4WASsrIVu ZFHliQJBcB6tspfwt1ym xmlgAoZtTLYaFRa7HJh0 LWFsaWduOiBsZWZ0 AhZ1YMT5wURmiQ8ulDyw marjrT9vTmw+QmlydGgg KAL1SGk0T9KnBaz4SZLk jObdXL9qlEVtVHwd Ul8rmStwwOanXY0gVFEg jbcmr867UjVqr2exRMUv hYSiAAriOFF6M65ea6T6 TTBdDRKyDXU0jSQ9 eS6maDanwmqiyRYxuRfg aqMofGafXHerVFumA239 ETDzqYrxWuEoKYc9S0Iy Tur9TQWywRcaJX9y vKEqIBvnNm7yjPhevIbk JP8tSKSvzccgj566FvYs q1fsPOOdxWNgFBjrEFO4 U96sz9Y9BNLcDAEr UGT5pUN5rJ0mbFjiwgmu bGVmdDsgdmVydGljYWwt BTwfH929JRFbfIrcXbSp pTs9S0CiRjr4DYDu oTbnPK4rhRBpTDcdQn7u dKbzdEioLD4yBOUrmnwd h201UaMkg0vdFOUxaGUb IUbdBMN3J50uh6J4 ROHrXIGvBJS3fZN9nB8u bGlnbjogbGVmdDsgdmVy bUwrLXnaUZerZ316MSRu cDsnPlBhdGllbnQg LNssINe3I0CaIpettFG+ WN37ITHsXN80sJLhzDGl i2vqjQq2GtKeWTPvNIQ7 tOlaKTlxd2PzZLDn Z07ggNAow0U4BKHjkUqb uEQdUvTmkPB4xL8dNDkq oozzm7gopnynKwyts8se mo76mK34K73uKBwg ZHRoPSIzMCUiIHZhbGln pi4gyZ2jUg4+PGNvbCB3 nKP9aV1yTCIaQpH8SPan Z406QkWwdEYbOxni r3yhp7gtgTr3FxC4QNEb xnIjhGvqFRL0j0ZzAv09 O20sKWutGTSvSNLbUMFz IKKwpTujbe0htJ5c Ii8+JUVliOB4aNE8gI8x ZiYaYyV6CYcpU713McOp yOSfKguzB60gD9VicRS+ ERAuBwl9NFVzqHoo XP3szPJiQQioFo9vKJU2 ZuFbShYrGSvuI9RdCUEu rzbstnsftFK4UKEiJYQr gI48Aw4hlGymIQQy hSSChS9wkhotj6rqgruj AvScMATbFNt5LFx8MSJh hNavVhShHYZ1FrX9LLE1 jELujU4qwWdytant yO6kM2DtSEDfihhnIs71 mU3eEyXuGaD9NRzjFci+ WUIWPAZIEFOWOWQEXI50 X3FqXnh7RSLxtYuc JX2noKPxGAmtBr5nfSbd wFxwXF5lPGVlmawuMAXy lI9uTOObaZOsrOceOK4p MROdrrhyd211NeRy EOI4QJLduHRnR2NkrF5o BbPrZWVrUSTyM4CsoBCh CPkdL277KYbwWnE7FGKz fcUfK1AtONDtqNvz KvN4m7G1Fg8qPN2hSE7e WEE9IO64SL15xAXnh8C8 hPF7Z0JvSOLnsnwackdj bPP3RRSyUPIklU03 tMZhRLwbIu6fo0S7b061 MIKrYBIvrO28Mj1ueTxk VMElnKZWfO2nsouom7vn cjogIzAwMDAwMDt0 OKa6DRYqkWarXwXsIEO1 GnC7WPP4hNNdlT3igDry ewjwiT2aAeo+NzcgWWVh mlD0M8CeHps1QLMc ySkuLN8sqDTtWWqyCj6e uNphfBphFN6tRDRxnqpu OEIpnV9hTXErsPVriIxp LJ5kVWGeiwdlq794 SoRiAKN5SZYgtWZtO5Pp zS2lKpYdAQHcGKIhZ8Uq zLPzKZkiK378LRsoOyF0 WJQepkQbU4XuDKIx eEidUxB0d4A2Jt5UFO3N ZWV6T2YlEam6NJIyuAdu HO8kqBMyVOiwVw0jiQmn dRudVI3nYMDfcdri JFEpnR3kOSQwbYWncKlk CB3nUCDglknof352AdMk HFV0EFCteXFrG6UxlZ9k HkPbIBAnAHRvU3Wg bYZjRCmlX722AZslDuZ4 JOAvolFtX9GiGCLkoBku XrY0g0S6Xw2YTXittRC+ DN33xn03T6RwTjia Tng9HWQfGQC7zYT1pQ0j LEWuOThle2K3vVX1P8Tg fxGqog8xj4bxIXTwYPmp G87piHCyn5G5KKCq iRP2IWWtmTdgZrAmqY99 Oyc+CUZbyBrnk3BaFiur b9zgv4wpkQz2BgGfROVt veJalXptWOB2h2Vl Mo86J58cPYjpAMPxURIe TEBqMZHqqBcxce1zxN2k Ii8+BUWkjUI6mMU0kW4t ViDqVlE7PLcnZ987 YiQvdAFoGicec3btw7of rCb8TgAkIKMosfNapYgq JLV2x8IdEt48Q2CjkFey s9GpJeo3in89gWHw g5M0iRZ4B0OmELXhsxqh wHHmyUbwWZ4pXQCmptvq FDEqfV0qSLVtW6j9NtQd TrE0LMwdL7ZkstC4 MNFihSBeNSCkpXKMeD7e weqge9yhgiixQuRuPWOs CAp1VCo3EWMuvNpzPdTo ZVP2EsJ4GAF6tQXg sG4ltRouqbedgH7hPqs+ PJj6l7wucUChZE7unRU2 TK72CY01aQMtu7F5oDJ2 S1AmDENkseztieot zLV9DPDxSFAsyJ52Wv3d vHjyIe6bFYKiFTK9TJVd iNPlF8HmsV9aYaBrXGVk SRWcV0VwzIOzGThe W749HDzkWsD4ZTHgjhIk M8HeOXIldZyeCqP4o4Q2 Cn8YTM01IF65QC65sQYk n3V1rMF6Q5OwGDJy vnwjjzxkmCR6QZIoPSBh pZ13Nt9twNopAk5gDPKp PNB6WHXigRQwF1UgeF9z CgEqPAZsLCFnQ6Re sVDbKTfhX776PCafEnO3 ZEJagdGwC6YpLMCdyQgt RrD8h5I3Vf2FUt98WD56 FS91mZMro1E2iUW7 V3GfAMLqeszhldznyDW5 ULSzDXIaiX25Tu3pnMmk Jn6bXARpNRZ3ZMImgRSt D9YsrJ9zAmKkBUOt ARShT2SekIHwNYpfW379 CSdxNvB1KMNtwfNmB1Ei XRVnnIgsHiA7a7X7Bx7J TVesvbc7W2HhVrye dHI+EC90DOTlIY09dTIf lJYst5ehlMp0FuPzIVTf KOU3wPiiDQwdn7XiVZCj I50tcYBkf1U9WVYz bGx (more content not included)... [facility] Consent Forms - Physicianon 12-03-2024 Consent Forms - Physician [id number] #[id number] [facility] US LE Venous Duplex [place] koby 12-03-2024 US LE Venous Duplex Bilateral EXAMINATION: US LE Venous Duplex Bilateral HISTORY: Varicose veins of bilateral lower extremities with pain COMPARISON: Prior procedure. FINDINGS: REGION: Bilateral lower extremities THROMBI: Heat induced and/or microfoam chemical ablation induced thrombus within superficial veins as expected. . 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 COMPRESSIBILITY: Non-compressibility of treated veins as expected. FLOW: Absent flow within the treated veins as expected. Normal waveform and antegrade flow within deep system. OTHER: Varicose vein 5.2 mm in diameter with with 1.0 seconds reflux within proximal anterior medial lower left leg IMPRESSION: 1. Single remaining short segment varicose vein within lower left leg. 2. No remaining varicose veins within right leg in need of treatment at this time. Final Dictated by: Dario Bess MD Dictated DT/TM: 12/03/24 12:19 Signed (Electronic Signature): Dario Bess MD 12/03/24 12:51 p Technologist: MARYAM [facility] CT BRAIN WO CONTon CT BRAIN WO CONT CT BRAIN WO CONT History: Subdural hematoma Technique: Contiguous axial images through the brain were obtained without the administration of intravenous contrast material. Automated exposure control was utilized. Comparison: 09/10/2024 Findings: There is a decrease in the size of the right subdural hematoma since the previous examination. No acute blood products are seen. Mild mass effect upon adjacent parenchyma seen however no midline shift is demonstrated. The ventricles are normal in size. There is no evidence of midline shift. There are no areas of abnormal density to suggest presence of acute major vessel infarct, mass lesion, or hemorrhage. The visualized osseous structures are intact. Impression: A decrease in the size of the right subdural hematoma since the previous examination dated 09/10/2024. All CT scans at this facility use dose modulation, iterative reconstruction, and/or weight based dosing when appropriate to reduce radiation dose to as low as reasonably achievable. Finalized by Quentin Gilbert MD on 10/14/2024 7:15 AM Normal [facility] CT BRAIN WO CONTon CT BRAIN WO CONT CT BRAIN WO CONT CT BRAIN WO CONT HISTORY: Subdural hemorrhage COMPARISON: CT head 08/27/2024 TECHNIQUE: CT brain obtained without intravenous contrast. Automated exposure control was utilized. All CT scans at this facility use dose modulation, iterative reconstruction, and/or weight based dosing when appropriate to reduce radiation dose to as low as reasonably achievable. FINDINGS: Right frontoparietal subdural hematoma, decreasing in size and attenuation with respect to 08/27/2024 comparison. Maximum thickness measures approximately 1.5 cm, previously 1.7 cm. Decreasing comparison is most noted posteriorly. No new or growing component. Resolving right posterior scalp hematoma. No territorial region of diminished corey-white differentiation. No ventricular outflow obstruction. Unremarkable temporal bone structures, paranasal sinuses, visualized suprahyoid neck. Lens replacements. IMPRESSION: Ongoing evolution of right frontoparietal subdural hematoma, decreasing in overall extent of blood products, slight interval reduction in size of maximal caliber, now measuring up to 1.5 cm [previously 1.7 cm, when measured similarly]. Resolving right parietal scalp hematoma. I, Randy Prakash MD have personally reviewed the image(s) and agree with and/or edited the report Finalized by Randy Prakash MD on 09/11/2024 6:39 AM Normal [facility] Outside Recordson 08-31-2024 Outside Records [id number] 2#[id number] [facility] Outside Records [id number] 8#1.00OTGTIFF [facility] Rad - Other Radiology Report on 08-31-2024 Rad - Other Radiology Report [id number] 2#1.00OTGTIFF [facility] Rad - Other Radiology Report [id number] 1#1.00OTGTIFF Normal [facility] CT BRAIN WO CONTon CT BRAIN WO CONT CT BRAIN WO CONT CLINICAL INFORMATION: Subdural hemorrhage ([facility]) TECHNIQUE: CT BRAIN WO CONT CT images of the brain were obtained. Comparison is made to prior exam dated 08/18/2024. There is a right frontal parietal subdural hematoma with blood products of varying ages with maximal thickness, stable in comparison the prior exam. Degree of effacement of the underlying sulci and right lateral ventricle. Unchanged. Basilar cisterns remain patent. No new parenchymal hemorrhage. Osseous structures unchanged. IMPRESSION: Right frontal parietal subdural hematoma, stable in size in comparison with the previous exam. Continued close follow-up recommended. All CT scans at this facility use dose modulation, iterative reconstruction, and/or weight based dosing when appropriate to reduce radiation dose to as low as reasonably achievable. Finalized by Heriberto Jones MD on 08/27/2024 7:29 PM Normal [facility] BASIC METABOLIC PANLon 08-20 Anion gap [Moles/Vol] 8 mmol/L Normal 5-15 [facility] Comment on above: Performed By: #### C BCA, BMP ####[facility] ([id number])[address], [address] [place] [id number] Calcium [Mass/Vol] 8.4 mg/dL Low 8.5-10.5 [facility] Comment on above: Performed By: #### C BCA, BMP ####[facility] ([id number])[address], [address] [place] [address] Chloride [Moles/Vol] 106 mmol/L Normal 98-109 [facility] Comment on above: Performed By: #### C BCA, BMP ####[facility] ([id number])[address] [address], [place] [address] CO2 [Moles/Vol] 25 mmol/L Normal 22-[address] [facility] Comment on above: Performed By: #### C MARIELLA, BMP ####[facility] ([id number])[address] [address], [place] [address] Creatinine [Mass/Vol] 0.66 mg/dL Normal 0.40-1.00 [facility] Comment on above: Result Comment: METH OD TRACEABLE TO IDMS STANDARD Performed By: #### C MARIELLA, BMP ####[facility] ([id number])[address] [address], [place] [address] eGFR (CKD-EPI) NON-RACE DEPENDENT >90 Normal >[address] [facility] Comment on above: Result Comment: Reported eGFR is based on the CKD-EPI 2020 equation that does not use a race coefficient. Performed By: #### C MARIELLA, BMP ####[facility] ([id number])[address] [address], [place] [address] Glucose [Mass/Vol] 100 mg/dL High 65-99 [facility] Comment on above: Performed By: #### C MARIELLA, BMP ####[facility] ([id number])[address] [address], [place] [address] Potassium [Moles/Vol] 3.9 mmol/L Normal 3.5-5.0 [facility] Comment on above: Performed By: #### C BCA, BMP ####[facility] ([id number])[address] [address], [place] [address] Sodium [Moles/Vol] 139 mmol/L Normal 134-146 [facility] Comment on above: Performed By: #### C BCA, BMP ####[facility] ([id number])[address] [address], [place] [address] Urea nitrogen [Mass/Vol] 12 mg/dL Normal 5-[address] [facility] Comment on above: Performed By: #### C MARIELLA, BMP ####[facility] ([id number])[address] [place] [address] CBC AND AUTO DIFFon 08-20-19 25 ABSOLUTE BASOPHIL 0.1 X10E9/L Normal 0.0-0.2 [facility] Comment on above: Performed By: #### C MARIELLA, BMP ####[facility] ([id number])[address] [place] [address] ABSOLUTE NEUTROPHIL 6.1 X10E9/L Normal 1.5-6.6 [facility] Comment on above: Performed By: #### C MARIELLA, BMP ####[facility] ([id number])[address], [address], [place] [address] Basophils/100 WBC (Bld) 0.7 % Normal [facility] Comment on above: Performed By: #### C MARIELLA, BMP ####[facility] ([id number])[address] [place] [address] Eosinophils (Bld) [#/Vol] 0.1 10*3/uL Normal 0.0-0.[address] [facility] Comment on above: Performed By: #### C MARIELLA, BMP ####[facility] ([id number])[address] [place] [address] Eosinophils/100 WBC (Bld) 1.1 % Normal [facility] Comment on above: Performed By: #### C BCA, BMP ####[facility] ([id number])[address] [place] [address] Erythrocyte distribution width (RBC) [Ratio] 13.9 % Normal 11.5-15.[address] [facility] Comment on above: Performed By: #### C MARIELLA, BMP ####[facility] ([id number])[address], [place] [address] Hematocrit (Bld) [Volume fraction] 31.5 % Low 35-[address] [facility] Comment on above: Performed By: #### C MARIELLA, BMP ####[facility] ([id number])[address], [place] [address] Hemoglobin (Bld) [Mass/Vol] 10.7 g/dL Low 11.7-15.[address] [facility] Comment on above: Performed By: #### C MARIELLA, BMP ####[facility] ([id number])[address], [place] [address] Lymphocytes (Bld) [#/Vol] 3.8 10*3/uL High 1.0-3.[address] [facility] Comment on above: Performed By: #### C MARIELLA, BMP ####[facility] ([id number])[address], [address] [place] [address] Lymphocytes/100 WBC (Bld) 32.9 % Normal [facility] Comment on above: Performed By: #### C MARIELLA, BMP ####[facility] ([id number])[address], [place] [address] MCH (RBC) [Entitic mass] 34.7 pg High 27-[address] [facility] Comment on above: Performed By: #### C BCA, BMP ####[facility] ([id number])[address] [address], [place] [address] MCHC (RBC) [Mass/Vol] 34.0 g/dL Normal 32-36 [facility] Comment on above: Performed By: #### C BCA, BMP ####[facility] ([id number])[address] [place] [address] MCV (RBC) [Entitic vol] 102 fL High 80-100 P [facility] Comment on above: Performed By: #### C BCA, BMP ####[facility] ([id number])[address], [place] [address] Monocytes (Bld) [#/Vol] 1.4 10*3/uL High 0-0.[address] [facility] Comment on above: Performed By: #### C BCA, BMP ####[facility] ([id number])[address], [place] [address] Monocytes/100 WBC (Bld) 12.3 % Normal P [facility] Comment on above: Performed By: #### C MARIELLA, BMP ####[facility] ([id number])[address], [place] [address] Neutrophils/100 WBC (Bld) 53.0 % Normal [facility] Comment on above: Performed By: #### C BCA, BMP ####[facility] ([id number])[address], [place] [address] Platelet mean volume (Bld) [Entitic vol] 11.0 fL Normal 7-[address] [facility] Comment on above: Performed By: #### C MARIELLA, BMP ####[facility] ([id number])[address], [place] [address] Platelets (Bld) [#/Vol] 252 10*3/uL Normal 150-[address] [facility] Comment on above: Performed By: #### C BCA, BMP ####[facility] ([id number])[address], [address], [place] [address] RBC COUNT 3.09 X10E12/L Low 3.80-5.[address] [facility] Comment on above: Performed By: #### C BCA, BMP ####[facility] ([id number])[address], [address], [place] [address] WBC (Bld) [#/Vol] 11.6 10*3/uL High 4.0-11.0 [facility] Comment on above: Performed By: #### C BCA, BMP ####[facility] ([id number])[address] [address] [place] [address] BASIC METABOLIC PANLon 08-19 Anion gap [Moles/Vol] 8 mmol/L Normal 5-15 [facility] Comment on above: Performed By: #### B MP, CBCA ####[facility] ([id number])[address] [address] [place] [address] Calcium [Mass/Vol] 8.6 mg/dL Normal 8.5-10.5 [facility] Comment on above: Performed By: #### B MP, CBCA ####[facility] ([id number])[address] [address] [place] [address], [place] [address] Chloride [Moles/Vol] 108 mmol/L Normal 98-109 [facility] Comment on above: Performed By: #### B OMID, CBCA ####[facility] ([id number])[address] [address] [place] [address] CO2 [Moles/Vol] 25 mmol/L Normal 22-[address] [facility] Comment on above: Performed By: #### B MP, CBCA ####[facility] ([id number])[address] [place] [address] Creatinine [Mass/Vol] 0.68 mg/dL Normal 0.40-1.00 [facility] Comment on above: Result Comment: METH OD TRACEABLE TO IDMS STANDARD Performed By: #### B MP, CBCA ####[facility] ([id number])[address] [address] [place] [address], [place] [address] GFR/1.73 sq M.predicted among non-blacks MDRD (S/P/Bld) [Vol rate/Area] 90 mL/min/{1.73_m2} Normal >[address] [facility] Comment on above: Result Comment: Reported eGFR is based on the CKD-EPI 2020 equation that does not use a race coefficient. Performed By: #### B JUSTINA ANNE ####[facility] ([id number])[address], [address], [place] [address] Glucose [Mass/Vol] 104 mg/dL High 65-99 [facility] Comment on above: Performed By: #### B OMID CBCA ####[facility] ([id number])[address] [address], [place] [address] Potassium [Moles/Vol] 3.8 mmol/L Normal 3.5-5.0 [facility] Comment on above: Performed By: #### B OMID CBCA ####[facility] ([id number])[address] [address], [place] [address] Sodium [Moles/Vol] 141 mmol/L Normal 134-146 [facility] Comment on above: Performed By: #### B OMID CBCA ####[facility] ([id number])[address] [address], [place] [address] Urea nitrogen [Mass/Vol] 15 mg/dL Normal 5-[address] [facility] Comment on above: Performed By: #### B OMID CBCA ####[facility] ([id number])[address] [address] [place] [address], [place] [address] CBC AND AUTO DIFFon 02-05-20 25 ABSOLUTE BASOPHIL 0.0 X10E9/L Normal 0.0-0.2 [facility] Comment on above: Performed By: #### B OMID CBCA ####[facility] ([id number])[address] [address], [place] [address] ABSOLUTE NEUTROPHIL 5.5 X10E9/L Normal 1.5-6.6 [facility] Comment on above: Performed By: #### B MP, CBCA ####[facility] ([id number])[address] [place] [address] Basophils/100 WBC (Bld) 0.4 % Normal [facility] Comment on above: Performed By: #### B MP, CBCA ####[facility] ([id number])[address], [address] [place] [address] Eosinophils (Bld) [#/Vol] 0.1 10*3/uL Normal 0.0-0.[address] [facility] Comment on above: Performed By: #### B MP, CBCA ####[facility] ([id number])[address] [address] [place] [address] Eosinophils/100 WBC (Bld) 0.7 % Normal [facility] Comment on above: Performed By: #### B MP, CBCA ####[facility] ([id number])[address] [address] [place] [address] Erythrocyte distribution width (RBC) [Ratio] 13.7 % Normal 11.5-15.[address] [facility] Comment on above: Performed By: #### B MP, CBCA ####[facility] ([id number])[address] [address] [place] [address] Hematocrit (Bld) [Volume fraction] 30.9 % Low 35-[address] [facility] Comment on above: Performed By: #### B MP, CBCA ####[facility] ([id number])[address] [address] [place] [address] Hemoglobin (Bld) [Mass/Vol] 10.6 g/dL Low 11.7-15.[address] [facility] Comment on above: Performed By: #### B MP, CBCA ####[facility] ([id number])[address] [address] Lymphocytes (Bld) [#/Vol] 3.6 10*3/uL High 1.0-3.[address] [facility] Comment on above: Performed By: #### B MP, CBCA ####[facility] ([id number])[address], [place] [address] Lymphocytes/100 WBC (Bld) 34.7 % Normal [facility] Comment on above: Performed By: #### B MP, CBCA ####[facility] ([id number])[address] [address] [place] [address] MCH (RBC) [Entitic mass] 35.2 pg High 27-[address] [facility] Comment on above: Performed By: #### B MP, CBCA ####[facility] ([id number])[address], [address], [place] [address] MCHC (RBC) [Mass/Vol] 34.4 g/dL Normal 32-36 [facility] Comment on above: Performed By: #### B OMID, CBCA ####[facility] ([id number])[address] [address] [place] [address] MCV (RBC) [Entitic vol] 102 fL High 80-100 [facility] Comment on above: Performed By: #### B MP, CBCA ####[facility] ([id number])[address], [address] [place] [address] Monocytes (Bld) [#/Vol] 1.1 10*3/uL High 0-0.[address] [facility] Comment on above: Performed By: #### B MP, CBCA ####[facility] ([id number])[address] [address] [place] [address] Monocytes/100 WBC (Bld) 11.0 % Normal P [facility] Comment on above: Performed By: #### B MP, CBCA ####[facility] ([id number])[address] [place] [address] Neutrophils/100 WBC (Bld) 53.2 % Normal [facility] Comment on above: Performed By: #### B MP, CBCA ####[facility] ([id number])[address] [place] [address] Platelet mean volume (Bld) [Entitic vol] 10.8 fL Normal 7-[address] [facility] Comment on above: Performed By: #### B MP, CBCA ####[facility] ([id number])[address] [place] [address] Platelets (Bld) [#/Vol] 229 10*3/uL Normal 150-[address] [facility] Comment on above: Performed By: #### B MP, CBCA ####[facility] ([id number])[address] [place] [address] RBC COUNT 3.02 X10E12/L Low 3.80-5.[address] [facility] Comment on above: Performed By: #### B MP, CBCA ####[facility] ([id number])[address] [place] [address] WBC (Bld) [#/Vol] 10.3 10*3/uL Normal 4.0-11.0 [facility] Comment on above: Performed By: #### B MP, CBCA ####[facility] ([id number])[address], [address], [place] [address] URINALYSISon 08-19-2024 Bilirubin Ql (U) Negative Normal NEG [facility] Comment on above: Performed By: #### U A ####[facility] ([id number])[address], [place] [address] BLOOD/HGB Negative Normal NEG [facility] Comment on above: Performed By: #### U A ####[facility] ([id number])[address] [place] [address] Color (U) YELLOW Normal YELLOW [facility] Comment on above: Performed By: #### U A ####[facility] ([id number])[address] [place] [address] Glucose Ql (U) Negative Normal NEG [facility] Comment on above: Performed By: #### U A ####[facility] ([id number])[address] [place] [address] Ketones Ql (U) Negative Normal NEG [facility] Comment on above: Performed By: #### U A ####[facility] ([id number])[address] [place] [address] Leukocyte esterase Test strip Ql (U) Negative Normal NEG [facility] Comment on above: Performed By: #### U A ####[facility] ([id number])[address] [place] [address] MUCOUS PRESENT Abnormal NONE [facility] Comment on above: Performed By: #### U A ####[facility] ([id number])[address] [place] [address] Nitrite Ql (U) Negative Normal NEG [facility] Comment on above: Performed By: #### U A ####[facility] ([id number])[address], [place] [address] pH (U) 6.0 [pH] Normal 5.0-8.[address] [facility] Comment on above: Performed By: #### U A ####[facility] ([id number])[address], [place] [address] Protein Ql (U) Negative Normal NEG [facility] Comment on above: Performed By: #### U A ####[facility] ([id number])[address] [address] [place] [address] R.B.CELLS 1 /hpf Normal 0-[address] [facility] Comment on above: Performed By: #### U A ####[facility] ([id number])[address] [address] [place] [address] Specific gravity (U) [Rel density] 1.029 Normal 1.003-1.[address] [facility] Comment on above: Performed By: #### U A ####[facility] ([id number])[address] [address] [place] [address] SQUAMOUS EPITHELIUM 3 /hpf Normal 0-5 [facility] Comment on above: Performed By: #### U A ####[facility] ([id number])[address] [facility] [address] [place] [address] TURBIDITY CLEAR Normal CLEAR [facility] Comment on above: Performed By: #### U A ####[facility] ([id number])[address] [address] [place] [address] Urobilinogen (U) [Mass/Vol] mg/dL Normal <1.[address] [facility] Comment on above: Performed By: #### U A ####[facility] ([id number])[address] [address] [place] [address] W.B.CELLS 1 /hpf Normal 0-[address] [facility] Comment on above: Performed By: #### U A ####[facility] ([id number])[address] [address] [place] [address] BASIC METABOLIC PANLon 08-18 Anion gap [Moles/Vol] 9 mmol/L Normal 5-[address] [facility] Comment on above: Performed By: #### C BCA, BMP #### [facility] ([id number]) [address], [address] [place] [address] Calcium [Mass/Vol] 8.0 mg/dL Low 8.5-10.5 [facility] Comment on above: Performed By: #### C BCA, BMP #### [facility] ([id number]) [address], [address] [place] [address] Chloride [Moles/Vol] 109 mmol/L Normal 98-109 [facility] Comment on above: Performed By: #### C BCA, BMP #### [facility] ([id number]) [address], [address] [address] CO2 [Moles/Vol] 23 mmol/L Normal 22-[address] [facility] Comment on above: Performed By: #### C BCA, BMP #### [facility] ([id number]) [address], [address] [place] [address] Creatinine [Mass/Vol] 0.72 mg/dL Normal 0.40-1.00 [facility] Comment on above: Result Comment: METH OD TRACEABLE TO IDMS STANDARD Performed By: #### C BCA, BMP #### [facility] ([id number]) [address] [address] GFR/1.73 sq M.predicted among non-blacks MDRD (S/P/Bld) [Vol rate/Area] 86 mL/min/{1.73_m2} Normal >[address] [facility] Comment on above: Result Comment: Reported eGFR is based on the CKD-EPI 2020 equation that does not use a race coefficient. Performed By: #### C BCA, BMP #### [facility] ([id number]) [address] [address] [place] [address] Glucose [Mass/Vol] 91 mg/dL Normal 65-99 [facility] Comment on above: Performed By: #### C BCA, BMP #### [facility] ([id number]) [address], [address] [place] [address] Potassium [Moles/Vol] 3.6 mmol/L Normal 3.5-5.0 [facility] Comment on above: Performed By: #### C BCA, BMP #### [facility] ([id number]) [address], [address] [place] [address] Sodium [Moles/Vol] 141 mmol/L Normal 134-146 [facility] Comment on above: Performed By: #### C MARIELLA, BMP #### [facility] ([id number]) [address], [address] [place] [address] Urea nitrogen [Mass/Vol] 16 mg/dL Normal 5-[address] [facility] Comment on above: Performed By: #### C MARIELLA, BMP #### [facility] ([id number]) [address], [address] [place] [address] CBC AND AUTO DIFFon 08-18-19 25 ABSOLUTE BASOPHIL 0.1 X10E9/L Normal 0.0-0.2 [facility] Comment on above: Performed By: #### C MARIELLA, BMP #### [facility] ([id number]) [address], [address] [place] [address] ABSOLUTE NEUTROPHIL 3.6 X10E9/L Normal 1.5-6.6 [facility] Comment on above: Performed By: #### C BCA, BMP #### [facility] ([id number]) [address], [address] [place] [address] Basophils/100 WBC (Bld) 1.2 % Normal P [facility] Comment on above: Performed By: #### C BCA, BMP #### [facility] ([id number]) [address], [address] [place] [address] Eosinophils (Bld) [#/Vol] 0.1 10*3/uL Normal 0.0-0.[address] [facility] Comment on above: Performed By: #### C MARIELLA, BMP #### [facility] ([id number]) [address], [address] [place] [address] Eosinophils/100 WBC (Bld) 0.8 % Normal [facility] Comment on above: Performed By: #### C BCA, BMP #### [facility] ([id number]) [address], [address] [place] [address] Erythrocyte distribution width (RBC) [Ratio] 13.8 % Normal 11.5-15.[address] [facility] Comment on above: Performed By: #### C MARIELLA, BMP #### [facility] ([id number]) [address], [address] [place] [address] Hematocrit (Bld) [Volume fraction] 32.0 % Low 35-[address] [facility] Comment on above: Performed By: #### C BCA, BMP #### [facility] ([id number]) [address], [address] [place] [address] Hemoglobin (Bld) [Mass/Vol] 10.7 g/dL Low 11.7-15.[address] [facility] Comment on above: Performed By: #### C BCA, BMP #### [facility] ([id number]) [address] [place] [address] Lymphocytes (Bld) [#/Vol] 3.9 10*3/uL High 1.0-3.[address] [facility] Comment on above: Performed By: #### C BCA, BMP #### [facility] ([id number]) [address] [place] [address] Lymphocytes/100 WBC (Bld) 45.9 % Normal [facility] Comment on above: Performed By: #### C BCA, BMP #### [facility] ([id number]) [address] [place] [address] MCH (RBC) [Entitic mass] 34.6 pg High 27-[address] [facility] Comment on above: Performed By: #### C MARIELLA, BMP #### [facility] ([id number]) [address] [place] [address] MCHC (RBC) [Mass/Vol] 33.4 g/dL Normal 32-[address] [facility] Comment on above: Performed By: #### C MARIELLA, BMP #### [facility] ([id number]) [address] [place] [address] MCV (RBC) [Entitic vol] 104 fL High 80-100 [facility] Comment on above: Performed By: #### C MARIELLA, BMP #### [facility] ([id number]) [address], [address] [place] [address] Monocytes (Bld) [#/Vol] 0.9 10*3/uL Normal 0-0.[address] [facility] Comment on above: Performed By: #### C MARIELLA, BMP #### [facility] ([id number]) [address] [place] [address] Monocytes/100 WBC (Bld) 10.1 % Normal P [facility] Comment on above: Performed By: #### C MARIELLA, BMP #### [facility] ([id number]) [address] [place] [address] Neutrophils/100 WBC (Bld) 42.0 % Normal [facility] Comment on above: Performed By: #### C MARIELLA, BMP #### [facility] ([id number]) [address] [place] [address] Platelet mean volume (Bld) [Entitic vol] 10.5 fL Normal 7-[address] [facility] Comment on above: Performed By: #### C MARIELLA, BMP #### [facility] ([id number]) [address] [place] [address] Platelets (Bld) [#/Vol] 229 10*3/uL Normal 150-[address] [facility] Comment on above: Performed By: #### C BCA, BMP #### [facility] ([id number]) [address], [address] [place] [address] RBC COUNT 3.09 X10E12/L Low 3.80-5.[address] [facility] Comment on above: Performed By: #### C MARIELLA, BMP #### [facility] ([id number]) [address], [address] [place] [address] WBC (Bld) [#/Vol] 8.5 10*3/uL Normal 4.0-11.0 [facility] Comment on above: Performed By: #### C MARIELLA, BMP #### [facility] ([id number]) [address], [address] [place] [address] CT BRAIN WO CONTon CT BRAIN WO CONT CT BRAIN WO CONT CT HEAD WITHOUT CONTRAST HISTORY: Head trauma, subdural hematoma COMPARISON: 08/17/2024 TECHNIQUE: Routine noncontrast CT head. All CT scans at this facility use dose modulation, iterative reconstruction, and/or weight based dosing when appropriate to reduce radiation dose to as low as reasonably achievable. FINDINGS: Right subdural hematoma measuring 1.4 cm in greatest thickness is unchanged. No significant midline shift. No new intracranial hemorrhage. No evidence of ventricular outflow obstruction. Right parietal scalp hematoma is unchanged. Visualized paranasal sinuses and temporal bone structures are clear. No skull fractures. IMPRESSION: * Stable right subdural hematoma measuring 1.4 cm in greatest thickness. Finalized by Sudhir Lawson MD on 08/18/2024 4:00 AM Normal [facility] Calcium.ionized (Bld) [Mass/ Vol]on 08-18-2024 IONIZED CALCIUM 4.7 mg/dL Normal 4.5-5.[address] [facility] Comment on above: Performed By: #### 3 8230-9 ####[facility] ([id number])[address] [place] [address] POTASSIUMon 08-18-2024 Potassium [Moles/Vol] 3.8 mmol/L Normal 3.5-5.0 [facility] Comment on above: Performed By: #### 2 823-3 ####[facility] ([id number])[address] [place] [address] AMYLASEon 08-17-2024 Amylase [Catalytic activity/Vol] 21 U/L Low 28-[address] [facility] Comment on above: Performed By: #### C MARIELLA, 1798-02, 5643-2, 3040-3, CMP #### [facility] ([id number]) [address], [address] [place] [address] Anisocytosis LM Ql (Bld)on 0 08-17-2024 Anisocytosis Ql (Bld) Anisocytosis [Presence] in Blood by Light microscopy [facility] Basophils/100 WBC Manual cnt (Bld)on 08-17-2024 Basophils/100 WBC (Bld) Basophils/100 leukocytes in Blood by Manual count Low 0.2-2.0 [facility] CBC AND AUTO DIFFon 08-17-19 25 ABSOLUTE BASOPHIL 0.2 X10E9/L Normal 0.0-0.2 [facility] Comment on above: Performed By: #### Ryan WOLFF, 8, 5643-2, 3040-3, CMP #### [facility] ([id number]) [address] [place] [address] ABSOLUTE NEUTROPHIL 5.0 X10E9/L Normal 1.5-6.6 [facility] Comment on above: Performed By: #### Ryan WOLFF, 8, 5643-2, 3040-3, CMP #### [facility] ([id number]) [address] [place] [address] Basophils/100 WBC (Bld) 1.9 % Normal [facility] Comment on above: Performed By: #### Ryan WOLFF, 1798-02, 5643-2, 3040-3, CMP #### [facility] ([id number]) [address] [place] [address] Eosinophils (Bld) [#/Vol] 0.1 10*3/uL Normal 0.0-0.[address] [facility] Comment on above: Performed By: #### Ryan WOLFF, 1798-02, 43-2, 0-3, CMP #### [facility] ([id number]) [address] [place] [address] Eosinophils/100 WBC (Bld) 0.5 % Normal [facility] Comment on above: Performed By: #### Ryan WOLFF, 1798-02, 43-2, 0-3, CMP #### [facility] ([id number]) [address], [address] [place] [address] Erythrocyte distribution width (RBC) [Ratio] 13.5 % Normal 11.5-15.[address] [facility] Comment on above: Performed By: #### Ryan WOLFF, 1798-02, 43-2, 3040-3, CMP #### [facility] ([id number]) [address] [place] [address] Hematocrit (Bld) [Volume fraction] 37.7 % Normal 35-[address] [facility] Comment on above: Performed By: #### Ryan WOLFF, 1798-02, 5643-2, 0-3, CMP #### [facility] ([id number]) [address] [place] [address] Hemoglobin (Bld) [Mass/Vol] 12.4 g/dL Normal 11.7-15.[address] [facility] Comment on above: Performed By: #### Ryan WOLFF, 1798-02, 5643-2, 3040-3, CMP #### [facility] ([id number]) [address], [facility] [address] [place] [address] Lymphocytes (Bld) [#/Vol] 5.2 10*3/uL High 1.0-3.[address] [facility] Comment on above: Performed By: #### Ryan WOLFF, 1798-02, 5642-2, 3039-3, CMP #### [facility] ([id number]) [address], [facility] [address] [place] [address] Lymphocytes/100 WBC (Bld) 45.8 % Normal [facility] Comment on above: Performed By: #### Ryan WOLFF, 1798-02, 5642-2, 3039-3, CMP #### [facility] ([id number]) [address] [address] [place] [address] MCH (RBC) [Entitic mass] 33.8 pg Normal 27-[address] [facility] Comment on above: Performed By: #### Ryan WOLFF, 1798-02, 5642-2, 304-3, CMP #### [facility] ([id number]) [address], [address] [address] MCHC (RBC) [Mass/Vol] 32.9 g/dL Normal 32-36 [facility] Comment on above: Performed By: #### Ryan WOLFF, 1798-02, 5642-2, 3039-3, CMP #### [facility] ([id number]) [address], [facility] [address] [place] [address] MCV (RBC) [Entitic vol] 103 fL High 80-100 [facility] Comment on above: Performed By: #### Ryan WOLFF, 1798-02, 5642-2, 3040-3, CMP #### [facility] ([id number]) [address], [address] [place] [address] Monocytes (Bld) [#/Vol] 0.9 10*3/uL Normal 0-0.[address] [facility] Comment on above: Performed By: #### Ryan WOLFF, 1797-8, 5643-2, 3040-3, CMP #### [facility] ([id number]) [address], [address] [place] [address] Monocytes/100 WBC (Bld) 7.6 % Normal [facility] Comment on above: Performed By: #### Ryan WOLFF, 1797-8, 5643-2, 3040-3, CMP #### [facility] ([id number]) [address], [facility] [address] [place] [address] Neutrophils/100 WBC (Bld) 44.2 % Normal [facility] Comment on above: Performed By: #### Ryan WOLFF, 8, 5643-2, 3040-3, CMP #### [facility] ([id number]) [address], [address] [place] [address] Platelet mean volume (Bld) [Entitic vol] 11.4 fL Normal 7-[address] [facility] Comment on above: Performed By: #### Ryan WOLFF, 1798-02, 5643-2, 3040-3, CMP #### [facility] ([id number]) [address], [address] [place] [address] Platelets (Bld) [#/Vol] 206 10*3/uL Normal 150-[address] [facility] Comment on above: Performed By: #### Ryan WOLFF, 1798-02, 5643-2, 3040-3, CMP #### [facility] ([id number]) [address], [facility] [address] [place] [address] RBC COUNT 3.66 X10E12/L Low 3.80-5.[address] [facility] Comment on above: Performed By: #### Ryan WOLFF, 1798-02, 5643-2, 3040-3, CMP #### [facility] ([id number]) [address], [address] [place] [address] WBC (Bld) [#/Vol] 11.3 10*3/uL High 4.0-11.0 [facility] Comment on above: Performed By: #### C MARIELLA, 1797-8, 5643-2, 3040-3, CMP #### [facility] ([id number]) [address], [address] [place] [address] COMPREHENSIVE METABOLIC PANE Koby 08-17-2024 Albumin [Mass/Vol] 3.4 g/dL Normal 3.2-5.3 [facility] Comment on above: Performed By: #### C MARIELLA, 1797-8, 5643-2, 3040-3, CMP #### [facility] ([id number]) [address], [address] [place] [address] ALP [Catalytic activity/Vol] 188 U/L High 39-[address] [facility] Comment on above: Performed By: #### Ryan WOLFF, 1797-8, 5643-2, 3040-3, CMP #### [facility] ([id number]) [address], [address] [place] [address] ALT [Catalytic activity/Vol] 28 U/L Normal 0-[address] [facility] Comment on above: Performed By: #### Ryan WOLFF, 1797-8, 5643-2, 3040-3, CMP #### [facility] ([id number]) [address], [address] [place] [address] Anion gap [Moles/Vol] 8 mmol/L Normal 5-15 [facility] Comment on above: Performed By: #### C BCA, 1797-8, 5643-2, 3040-3, CMP #### [facility] ([id number]) [address], [address] [place] [address] AST [Catalytic activity/Vol] 54 U/L High 0-[address] [facility] Comment on above: Performed By: #### C BCA, 1798-02, 5643-2, 3040-3, CMP #### [facility] ([id number]) [address], [address] [place] [address] Bilirubin [Mass/Vol] 1.2 mg/dL Normal 0.3-1.2 [facility] Comment on above: Performed By: #### C BCA, 1798-02, 5643-2, 3040-3, CMP #### [facility] ([id number]) [address], [address] [place] [address] Calcium [Mass/Vol] 8.9 mg/dL Normal 8.5-10.5 [facility] Comment on above: Performed By: #### C MARIELLA, 1798-02, 5643-2, 3040-3, CMP #### [facility] ([id number]) [address], [address] [place] [address] Chloride [Moles/Vol] 108 mmol/L Normal 98-109 [facility] Comment on above: Performed By: #### C BCA, 1798-02, 5643-2, 3040-3, CMP #### [facility] ([id number]) [address], [address] [place] [address] CO2 [Moles/Vol] 25 mmol/L Normal 22-[address] [facility] Comment on above: Performed By: #### C BCA, 1798-02, 5643-2, 3040-3, CMP #### [facility] ([id number]) [address], [address] [place] [address] Creatinine [Mass/Vol] 0.69 mg/dL Normal 0.40-1.00 [facility] Comment on above: Result Comment: METH OD TRACEABLE TO IDMS STANDARD Performed By: #### C MARIELLA, 1798-02, 5643-2, 3040-3, CMP #### [facility] ([id number]) [address], [address] [place] [address] GFR/1.73 sq M.predicted among non-blacks MDRD (S/P/Bld) [Vol rate/Area] 89 mL/min/{1.73_m2} Normal >[address] [facility] Comment on above: Result Comment: Reported eGFR is based on the CKD-EPI 2020 equation that does not use a race coefficient. Performed By: #### C BCA, 1798-02, 5643-2, 3040-3, CMP #### [facility] ([id number]) [address] [address] [place] [address] Glucose [Mass/Vol] 78 mg/dL Normal 65-99 [facility] Comment on above: Performed By: #### C BCA, 1798-02, 43-2, 3040-3, CMP #### [facility] ([id number]) [address], [address] [place] [address] Potassium [Moles/Vol] 4.9 mmol/L Normal 3.5-5.0 [facility] Comment on above: Result Comment: SPEC IMEN HEMOLYZED, RESULTS INCREASED MODERATELY HEMOLYZED Performed By: #### C BCA, 1798-02, 43-2, 3040-3, CMP #### [facility] ([id number]) [address], [address] [place] [address] Protein [Mass/Vol] 7.0 g/dL Normal 6.0-8.0 [facility] Comment on above: Performed By: #### C BCA, 1798-02, 5643-2, 3040-3, CMP #### [facility] ([id number]) [address], [address] [place] [address] Sodium [Moles/Vol] 141 mmol/L Normal 134-146 [facility] Comment on above: Performed By: #### C BCA, 1798-02, 5643-2, 3040-3, CMP #### [facility] ([id number]) [address], [address] [place] [address] Urea nitrogen [Mass/Vol] 16 mg/dL Normal 5-[address] [facility] Comment on above: Performed By: #### C BCA, 1798-8, 5643-2, 3040-3, CMP #### [facility] ([id number]) [address], [address] [place] [address] DRUG SCREEN, URINEon 025 AMPHETAMINE/METHAMP Negative Normal NEG [facility] Comment on above: Result Comment: AMPH /METH screening cut off = 1000 ng/mL Performed By: #### D TABARES ####[facility] ([id number])[address], [address] [place] [address] BARBITURATES Negative Normal NEG [facility] Comment on above: Result Comment: Perri iturates screening cut off value = 200 ng/mL Performed By: #### D TABARES ####[facility] ([id number])[address], [address] [place] [address] BENZODIAZEPINES Negative Normal NEG [facility] Comment on above: Result Comment: Yaya odiazepines screening cut off value = 200 ng/mL Performed By: #### D TABARES ####[facility] ([id number])[address], [address] [place] [address] CANNABINOIDS Negative Normal NEG [facility] Comment on above: Result Comment: Bj abinoids/THC screening cut off value = 50 ng/mL Performed By: #### D TABARES ####[facility] ([id number])[address] [address] [place] [address] COCAINE METABOLITE Negative Normal NEG [facility] Comment on above: Result Comment: Coca ine screening cut off value = 300 ng/mL Performed By: #### D TABARES ####[facility] ([id number])[address], [address] [place] [address] ECSTASY Negative Normal NEG [facility] Comment on above: Result Comment: Ecst asy screening cut off value = 500 ng/mL This report is intended for use in clinical monitoring or management of patients. Performed By: #### D TABARES ####[facility] ([id number])[address], [address], [place] [address] METHADONE Negative Normal NEG [facility] Comment on above: Result Comment: Meth adone screening cut off value = 300 ng/mL. Performed By: #### D TABARES ####[facility] ([id number])[address] [address] [place] [address] OPIATES Negative Normal NEG [facility] Comment on above: Result Comment: Opia sariah screening cut off value = 300 ng/mL NOTE: This test is used for the detection of codeine, hydrocodone (>1000 ng/mL), morphine and hydromorphone (>900 ng/mL) in urine. Performed By: #### D TABARES ####[facility] ([id number])[address] [address] [place] [address] OXYCODONE Negative Normal NEG [facility] Comment on above: Result Comment: Oxyc odone screening cut off value = 300 ng/mL NOTE: This test is used for the detection of oxycodone and oxymorphone in urine. Performed By: #### D TABARES ####[facility] ([id number])[address], [address], [place] [address] PHENCYCLIDINE Negative Normal NEG [facility] Comment on above: Result Comment: Phen cyclidine screening cut off value = 25 ng/mL Performed By: #### D TABARES ####[facility] ([id number])[address], [address], [place] [address] ETHANOLon 08-17-2024 Ethanol [Mass/Vol] mg/dL Normal 0.00-0.08 [facility] Comment on above: Result Comment: This report is intended for use in clinical monitoring or management of patients. Performed By: #### Ryan WOLFF, 1798-8, 5643-2, 3040-3, CMP #### [facility] ([id number]) [address], [address] [place] [address] Eosinophils/100 WBC Manual c nt (Bld)on 08-17-2024 Eosinophils/100 WBC (Bld) Eosinophils/100 leukocytes in Blood by Manual count Low 0.9-7.0 [facility] Erythrocyte distribution wid th Auto (RBC) [Ratio]on 08-17-2024 Erythrocyte distribution width (RBC) [Ratio] Erythrocyte distribution width [Ratio] by Automated count 11.0-15.0 [facility] Estimated glomerular filtrat ion rate (GFR) non- Americanon 08-17-2024 GFR/1.73 sq M.predicted among non-blacks MDRD (S/P/Bld) [Vol rate/Area] Estimated glomerular filtration rate (GFR) non- Low >=60 mL/min/1.73m 2 [facility] Glucose Glucometer (BldC) [M ass/Vol]on 08-17-2024 Glucose [Mass/Vol] 89 mg/dL Normal 65-99 [facility] Hematocrit Auto (Bld) [Volum e fraction]on 08-17-2024 Hematocrit (Bld) [Volume fraction] Hematocrit [Volume Fraction] of Blood by Automated count Low 36.0-48.0 [facility] Hemoglobin [Mass/volume] in Bloodon 08-17-2024 Hemoglobin (Bld) [Mass/Vol] Hemoglobin [Mass/volume] in Blood Low 12.0-16.0 [facility] LIPASEon 08-17-2024 Lipase [Catalytic activity/Vol] 23 U/L Normal 11-[address] [facility] Comment on above: Performed By: #### Ryan WOLFF, 1798-8, 5643-2, 3040-3, CMP #### [facility] ([id number]) [address], [address] [place] [address] Laboratory - Chemistry and C hemistry - challengeon 08-17-2024 Calcium [Mass/Vol] 8.8 mg/dL 8.5-10.1 [facility] Chloride [Moles/Vol] 107 mmol/L 98-107 [facility] CO2 [Moles/Vol] 26.3 mmol/L 21.0-32.0 [facility] Creatinine [Mass/Vol] 0.98 mg/dL 0.55-1.02 [facility] GFR/1.73 sq M.predicted MDRD (S/P/Bld) [Vol rate/Area] mL/min/{1.73_m2} >=60 mL/min/1.73m 2 [facility] Glucose [Mass/Vol] 129 mg/dL High 74-106 [facility] Potassium [Moles/Vol] 3.8 mmol/L 3.5-5.1 [facility] Sodium [Moles/Vol] 143 mmol/L 136-145 [facility] Urea nitrogen [Mass/Vol] 16.0 mg/dL 7.0-18.0 [facility] Urea nitrogen/Creatinine [Mass ratio] 16.3 mg/mg [facility] Laboratory - Hematology and Cell countson 08-17-2024 Lymphocytes/100 WBC (Bld) 27.0 % 20.5-60.0 [facility] Monocytes/100 WBC (Bld) 4.0 % 1.7-12.0 [facility] Leukocytes [#/volume] correc reji for nucleated erythrocytes in Blood by Automated counon 08-17-2024 WBC corrected for nucl RBC Auto (Bld) [#/Vol] Leukocytes [#/volume] corrected for nucleated erythrocytes in Blood by Automated coun 4.0-11.0 [facility] MCH Auto (RBC) [Entitic mass ]on 08-17-2024 MCH (RBC) [Entitic mass] MCH [Entitic mass] by Automated count 26.7-34.0 [facility] MCHC Auto (RBC) [Mass/Vol]on 08-17-2024 MCHC (RBC) [Mass/Vol] MCHC [Mass/volume] by Automated count 29.9-35.2 [facility] MCV Auto (RBC) [Entitic vol] on 08-17-2024 MCV (RBC) [Entitic vol] MCV [Entitic vol ume] by Automated count High 81.0-99.0 [facility] No Panel Informationon 08-17 Absolute Basophils (Manual) 0.00 10 3/uL 0.00-0.10 [facility] Eosinophils # (Manual) 0.00 10 3/uL 0.00-0.70 [facility] Lymphocytes # (Manual) 2.48 10 3/uL 1.20-3.80 [facility] Monocytes # (Manual) 0.36 10 3/uL 0.30-0.80 [facility] Segmented Neutrophils # (Manual) 6.34 10 3/uL 1.4-6.5 [facility] Troponin I High Sensitivity 8.2 pg/mL 4.0-51.3 [facility] Comment on above: CUT-OFF POINTS HAVE BEEN ESTABLISHED BASED ON THE FOURTHUNIVERSAL DEFINITION OF MYOCARDIAL INFARCTION. THE UPPERREFERENCE LIMIT (URL) OF TROPONIN, DEFINED THE 99THPERCENTILE OF cTnI DISTRIBUTION IN A REFERENCE POPULATION,HAS BEEN CONFIRMED THE DECISION THRESHOLD FOR MIDIAGNOSIS.99TH PERCENTILE = 51.4 PG/MLNOTE: HIGH-SENSITIVITY TROPONIN ASSAY IS NOT INTENDED TO BEUSED IN ISOLATION BUT SHOULD BE INTERPRETED IN CONJUNCTIONWITH OTHER DIAGNOSTIC AND CLINICAL INFORMATION. Platelet mean volume Auto (B ld) [Entitic vol]on 08-17-2024 Platelet mean volume (Bld) [Entitic vol] Platelet mean volume [Entitic volume] in Blood by Automated count 9.5-13.5 [facility] Platelets Auto (Bld) [#/Vol] on 08-17-2024 Platelets (Bld) [#/Vol] Platelets [#/vol ume] in Blood by Automated count 150-450 [facility] RBC Auto (Bld) [#/Vol]on RBC (Bld) [#/Vol] Erythrocytes [#/volume] in Blood by Automated count Low 4.20-5.40 [facility] Segmented neutrophils/100 WB C Manual cnt (Bld)on 08-17-2024 Segmented neutrophils/100 WBC (Bld) Manual blood segmented neutrophils/100 leukocytes 43.0-75.0 [facility] Serum or plasma anion gap de terminationon 08-17-2024 Anion gap [Moles/Vol] Serum or plasma anion gap determination [facility] XR CHEST 1 VWon 08-17-2024 XR CHEST 1 VW XR CHEST 1 VW EXAM: XR CHEST 1 VW CLINICAL INFORMATION: trauma. COMPARISON: None. FINDINGS: There are no pleural effusions. The lungs are clear and well aerated. Heart size is within normal limits. There are postsurgical changes of the left upper quadrant. IMPRESSION: 1. No acute cardiopulmonary disease. Finalized by Odilon Bailon MD on 08/17/2024 6:12 PM Normal [facility] XR PELVIS 1 OR 2 VWSon 08-17 XR PELVIS 1 OR 2 VWS XR PELVIS 1 OR 2 VW S Clinical history: Pelvic pain. Trauma. Pelvis: 08/17/2024 COMPARISON: None FINDINGS: A frontal view of the pelvis was obtained. Portions of the left iliac crest and greater trochanter are omitted. No focal osseous abnormality is evident. Degenerative changes are present in the sacroiliac joints and hips. IMPRESSION: No acute osseous abnormality evident radiographically. Finalized by Ruslan Walls MD on 08/17/2024 6:11 PM Normal [facility] Urine Cultureon 07-08-2024 Bacteria identified Cx Nom (U) 30,000 colonies/ml mixed bacterial skin contaminants including mixed gram negative bacilli - 2 Days PERFORMED BY: [place] [address] PATHOLOGIST [employer]ARE COMPLIANCE AUDITOR ZAIDA ONTIVEROS M.D. Normal [facility] Comment on above: Performed By: #### C UU #### [address] Urine cultureOrdered By: Yesenia Mcwilliams on 07-08-2024 Bacteria identified Cx Nom (U) Urine culture [facility] Activated partial thrombopla stin time (aPTT) in platelet poor plasma by coagulation aon 05-01-2024 aPTT Coag (PPP) [Time] 30.5 s 22.3-36.2 [facility] aPTT Coag (PPP) [Time] Activated partial thromboplastin time (aPTT) in platelet poor plasma by coagulation a 22.3-36.2 [facility] Basophils Auto (Bld) [#/Vol] on 05-01-2024 Basophils (Bld) [#/Vol] 0.0 10 3/uL 0.0-0.1 [facility] Basophils (Bld) [#/Vol] Automated basoph il count 0.0-0.1 [facility] Basophils/100 WBC Auto (Bld) on 05-01-2024 Basophils/100 WBC (Bld) 0.7 % 0.2-2.0 [facility] Basophils/100 WBC (Bld) Automated basophil % 0. 2-2.0 [facility] Eosinophils/100 WBC Auto (Bl d)on 05-01-2024 Eosinophils/100 WBC (Bld) 3.8 % 0.9-7.0 [facility] Eosinophils/100 WBC (Bld) Automated eosinophil % 0.9-7.0 [facility] Erythrocyte distribution wid th Auto (RBC) [Ratio]on 05-01-2024 Erythrocyte distribution width (RBC) [Ratio] 14.4 % 11.0-15.0 [facility] Erythrocyte distribution width (RBC) [Ratio] Erythrocyte distribution width [Ratio] by Automated count 11.0-15.0 [facility] Estimated glomerular filtrat ion rate (GFR) non- Americanon 05-01-2024 GFR/1.73 sq M.predicted among non-blacks MDRD (S/P/Bld) [Vol rate/Area] 51 mL/min/{1.73_m2} Low >=60 mL/min/1.73m 2 [facility] GFR/1.73 sq M.predicted among non-blacks MDRD (S/P/Bld) [Vol rate/Area] Estimated glomerular filtration rate (GFR) non- Low >=60 mL/min/1.73m 2 [facility] Globulin Calc (S) [Mass/Vol] on 05-01-2024 Globulin (S) [Mass/Vol] 4.3 g/dL [facility] Globulin (S) [Mass/Vol] Serum globulin measurement by calculation (mass/volume) [facility] Hematocrit Auto (Bld) [Volum e fraction]on 05-01-2024 Hematocrit (Bld) [Volume fraction] 39.1 % 36.0-48.0 [facility] Hematocrit (Bld) [Volume fraction] Hematocrit [Volume Fraction] of Blood by Automated count 36.0-48.0 [facility] Hemoglobin [Mass/volume] in Bloodon 05-01-2024 Hemoglobin (Bld) [Mass/Vol] 13.1 g/dL 12.0-16.0 [facility] Hemoglobin (Bld) [Mass/Vol] Hemoglobin [Mass/volume] in Blood 12.0-16.0 [facility] INR in Platelet poor plasma by Coagulation assayon 05-01-2024 INR Coag (PPP) [Relative time] 1.07 {INR} [facility] Comment on above: DESIRED INR:2.0-3.0 CONDITIONS NOT LISTED BELOW2.5-3.5 FOR PROSTHETIC HEART VALVE REPLACEMENT2.5-3.5 RECURRENT THROMBOSIS INR Coag (PPP) [Relative time] INR in Platelet poor plasma by Coagulation assay [facility] Comment on above: DESIRED INR:2.0-3.0 CONDITIONS NOT LISTED BELOW2.5-3.5 FOR PROSTHETIC HEART VALVE REPLACEMENT2.5-3.5 RECURRENT THROMBOSIS Laboratory - Chemistry and C hemistry - challengeon 05-01-2024 Bilirubin Ql (U) Negative NEGATIVE [facility] Glucose (U) [Mass/Vol] Negative NEGATIVE [facility] Ketones Ql (U) Negative NEGATIVE [facility] pH (U) 6.0 [pH] 5.0-9.0 [facility] Specific gravity (U) [Rel density] 1.020 1.005-1.025 [facility] Urobilinogen Qn (U) 0.2 {Diana'U}/dL 0.2-1.0 [facility] Albumin [Mass/Vol] 2.9 g/dL Low 3.4-5.0 [facility] ALP [Catalytic activity/Vol] 196 U/L High 46-116 [facility] ALT [Catalytic activity/Vol] 44 U/L 14-59 [facility] AST [Catalytic activity/Vol] 51 U/L High 15-37 [facility] Bilirubin [Mass/Vol] 0.7 mg/dL 0.2-1.0 [facility] Bilirubin.direct [Mass/Vol] 0.2 mg/dL 0.0-0.2 [facility] Calcium [Mass/Vol] 9.1 mg/dL 8.5-10.1 [facility] Chloride [Moles/Vol] 107 mmol/L 98-107 [facility] CO2 [Moles/Vol] 25.8 mmol/L 21.0-32.0 [facility] Creatinine [Mass/Vol] 1.05 mg/dL High 0.55-1.02 [facility] GFR/1.73 sq M.predicted MDRD (S/P/Bld) [Vol rate/Area] mL/min/{1.73_m2} >=60 mL/min/1.73m 2 [facility] Glucose [Mass/Vol] 84 mg/dL 74-106 [facility] Potassium [Moles/Vol] 3.7 mmol/L 3.5-5.1 [facility] Protein [Mass/Vol] 7.2 g/dL 6.4-8.2 [facility] Sodium [Moles/Vol] 143 mmol/L 136-145 [facility] Urea nitrogen [Mass/Vol] 20.0 mg/dL High 7.0-18.0 [facility] Urea nitrogen/Creatinine [Mass ratio] 19.0 mg/mg [facility] Laboratory - Hematology and Cell countson 05-01-2024 Immature granulocytes/100 WBC (Bld) 0.2 % 0.0-0.5 [facility] Laboratory - Specimen inform ationon 05-01-2024 Appearance (U) CLEAR CLEAR [facility] Color (U) YELLOW YELLOW [facility] Laboratory - Urinalysison Leukocyte esterase Test strip Ql (U) Negative NEGATIVE [facility] Nitrite Ql (U) Negative NEGATIVE [facility] Protein Ql (U) Negative NEG/TRACE [facility] Leukocytes [#/volume] correc reji for nucleated erythrocytes in Blood by Automated counon 05-01-2024 WBC corrected for nucl RBC Auto (Bld) [#/Vol] 4.5 10 3/uL 4.0-11.0 [facility] WBC corrected for nucl RBC Auto (Bld) [#/Vol] Leukocytes [#/volume] corrected for nucleated erythrocytes in Blood by Automated coun 4.0-11.0 [facility] Lymphocytes Auto (Bld) [#/Vo l]on 05-01-2024 Lymphocytes (Bld) [#/Vol] 2.0 10 3/uL 1.2-3.8 [facility] Lymphocytes (Bld) [#/Vol] Lymphocytes [#/volume] in Blood by Automated count 1.2-3.8 [facility] Lymphocytes/100 WBC Auto (Bl d)on 05-01-2024 Lymphocytes/100 WBC (Bld) 43.8 % 20.5-60.0 [facility] Lymphocytes/100 WBC (Bld) Lymphocytes/100 leukocytes in Blood by Automated count 20.5-60.0 [facility] MCH Auto (RBC) [Entitic mass ]on 05-01-2024 MCH (RBC) [Entitic mass] 34.5 pg High 26.7-34.0 [facility] MCH (RBC) [Entitic mass] MCH [Entitic mass] by Automated count High 26.7-34.0 [facility] MCHC Auto (RBC) [Mass/Vol]on 05-01-2024 MCHC (RBC) [Mass/Vol] 33.5 g/dL 29.9-35.2 [facility] MCHC (RBC) [Mass/Vol] MCHC [Mass/volume] by Automated count 29.9-35.2 [facility] MCV Auto (RBC) [Entitic vol] on 05-01-2024 MCV (RBC) [Entitic vol] 102.9 fL High 81.0-99.0 [facility] MCV (RBC) [Entitic vol] MCV [Entitic vol ume] by Automated count High 81.0-99.0 [facility] Monocytes Auto (Bld) [#/Vol] on 05-01-2024 Monocytes (Bld) [#/Vol] 0.6 10 3/uL 0.3-0.8 [facility] Monocytes (Bld) [#/Vol] Automated blood monocyte count 0.3-0.8 [facility] Monocytes/100 WBC Auto (Bld) on 05-01-2024 Monocytes/100 WBC (Bld) 13.8 % High 1.7-12.0 [facility] Monocytes/100 WBC (Bld) Automated monocyte % High 1. 7-12.0 [facility] Neutrophils Auto (Bld) [#/Vo l]on 05-01-2024 Neutrophils (Bld) [#/Vol] 1.7 10 3/uL 1.4-6.5 [facility] Neutrophils (Bld) [#/Vol] Neutrophils [#/volume] in Blood by Automated count 1.4-6.5 [facility] Neutrophils/100 WBC Auto (Bl d)on 05-01-2024 Neutrophils/100 WBC (Bld) 37.7 % Low 43.0-75.0 [facility] Neutrophils/100 WBC (Bld) Automated neutrophil % Low 43.0-75.0 [facility] No Panel Informationon 05-01 Urine Microscopic Review NO [facility] Urine Occult Blood Negative NEGATIVE [facility] Eosinophils # (Auto) 0.2 10 3/uL 0.0-0.7 [facility] Immature Granulocyte # (Auto) 0.01 10 3/uL 0.00-0.03 [facility] No Panel InformationOrdered By: Johny Perdomo on 05-01-2024 MRSA Screening Culture Fi [facility] Platelet mean volume Auto (B ld) [Entitic vol]on 05-01-2024 Platelet mean volume (Bld) [Entitic vol] 12.6 fL 9.5-13.5 [facility] Platelet mean volume (Bld) [Entitic vol] Platelet mean volume [Entitic volume] in Blood by Automated count 9.5-13.5 [facility] Platelets Auto (Bld) [#/Vol] on 05-01-2024 Platelets (Bld) [#/Vol] 266 10 3/uL 150-450 [facility] Platelets (Bld) [#/Vol] Platelets [#/vol ume] in Blood by Automated count 150-450 [facility] Prothrombin time (PT)on 04-14 PT Coag (PPP) [Time] 11.3 s 9.0-11.6 [facility] PT Coag (PPP) [Time] Prothrombin time (PT) 9.0-11.6 [facility] RBC Auto (Bld) [#/Vol]on RBC (Bld) [#/Vol] 3.80 10 6/uL Low 4.20-5.40 [facility] RBC (Bld) [#/Vol] Erythrocytes [#/volume] in Blood by Automated count Low 4.20-5.40 [facility] Serum or plasma albumin/glob ulin mass ratioon 05-01-2024 Albumin/Globulin [Mass ratio] 0.7 {ratio} [facility] Albumin/Globulin [Mass ratio] Serum or plasma albumin/globulin mass ratio [facility] Serum or plasma anion gap de terminationon 05-01-2024 Anion gap [Moles/Vol] 13.9 mmol/[facility] Anion gap [Moles/Vol] Serum or plasma anion gap determination [facility] C Urineon 01-19-2024 Bacteria identified Cx Nom [...] or tested, I=Intermediate, ESBL=Extended spectrum beta-lactamase, R=Resistant, TFG=Thymidine-depend ent strain, DONNIE=Beta-lactamase positive, PADDY=mcg/m;(mg/L), S*=Predicted susceptible interp, [...] Locations R1: This test was performed at: [facility], [address] [place] [address], [id number]- , , [facility] Comment on above: Performed By: #### [id number] #### [facility] [address] [place] [id number] Ambulatory Visit Summaryon 0 01-15-2024 Ambulatory Visit Summary Ambulatory Visit Summary DAMASO KAN :1945 Visit Date:01/15/2024 Ambulatory Visit Instructions Your Diagnosis Asymptomatic bacteriuria Urgency of urination Vaginal atrophy Renal cyst Your Care Team Attending Physician - Gage JACOB, Katie Arteaga Primary Care Physician - HARLAN KNOWLES MD This Is Your Medications List estradiol topical (Estrace 0.1 mg/g Cream) Contact prescribing physician if questions or concerns biotin (biotin 5000 mcg oral capsule) cholecalciferol (Vitamin D3 5000 intl units oral capsule) fexofenadine (Mary) Procedures Performed Cholecystectomy (07/29/2019), Parathyroidectomy (07/15/2016), Colonoscopy (12/26/2011), Biopsy of breast (07/15/2009), JUAN F BSO - Total abdominal hysterectomy and bilateral salpingo-oophorectom y (07/15/1996), 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 Discharge Vitals Temperature (Temporal Artery) 36.6 ?C Heart Rate (Peripheral) 71 Blood Pressure 132/78 Height 168 cm Height 66 in Weight 96 kg Weight 211.2 lb BMI 34.01 What to do next You Need to Schedule the Following Appointments Follow Up with Gage JACOB, Katie Arteaga, HARSHL, U[facility] When: Where: [address] [place] [address] [phone] Medications What How Much When Instructions Unchanged estradiol topical (Estrace 0.1 mg/ g Cream) See instructions Apply pea-sized amound around the opening of the urethra 3 times per week for 1 month then 2 times per week after for maintenance. Pickup at [facility] Unchanged biotin (biotin 5000 mcg oral capsule) Contact prescribing physician if questions or concerns Unchanged cholecalciferol (Vitamin D3 5000 intl units oral capsule) 1 Capsules By Mouth Every day with food Contact prescribing physician if questions or concerns Unchanged fexofenadine (Mary) By Mouth Contact prescribing physician if questions or concerns Pharmacy Information [facility]: [address] [place], [place] [phone] Allergies codeine (nausea) Problems Ongoing - Any [...] intended to (more content not included)... Normal [facility] Urology Office/Clinic Noteon 01-15-2024 Urology Office/Clinic [...] Contact Information Katie Almonte MD, URL, [facility] [address] [place] [phone] Additional Instructions: pt's choice on when to schedule f/u Patient Education Kegel Exercises I, Yuliana Olson, personally scribed for Dr. Almonte on 01/15/2024 11:27:08. . Documentation recorded by the scribYuliana sharma, accurately reflects the services(s) I performed and decisions made by me. Authenticated by Dr. Almonte on 01/15/2024 23:28:03. Problem List/Past Medical History Ongoing Asymptomatic bacteriuria Calculus of gallbladder Hyperparathyroidism Osteopeni (more content not included)... Normal [facility] Comment on above: Result Comment: Elec tronically Signed By: Katie Almonte MD\.br\Date and Time Signed: 01/15/24 23:28 EDT\.br\Electronically Co-Signed By: Yuliana Olson\.br\Date and Time Co-Signed: 01/15/24 11:27 EDT [place] 02-21-2023 Screens [id number] #[id number] Normal [facility] Patient Educationon 02-21-20 Patient Education Obstetrics [...] these instructions at home: Medicines ? Take [id number] and prescription medicines only as told by [...] provider. Document Revised: 02/10/2021 Document Reviewed: 02/10/2021 [employer] Patient Education ? 2022 Followap. [facility] Urology Office/Clinic Noteon 02-20-2023 Urology [...] medical exam (more content not included)... Normal [facility] Comment on above: Result Comment: Elec tronically Signed By: Katie Almonte MD\.br\Date and Time Signed: 02/20/23 12:03 EDT\.br\Electronically Co-Signed By: Sepideh Perez\.br\Date and Time Co-Signed: 02/20/23 11:49 EDT [facility]on 07-15 SARS-CoV-2 (COVID-19) RNA AZUL+probe Ql (Unsp spec) Not detected Normal NOT DETECTED [facility] Comment on above: Result Comment: This test is not yet approved or cleared by the [place] FDA. When there are no FDA-approved or cleared tests available, and other criteria are met, FDA can make tests available under an emergency access mechanism called an Emergency Use Authorization (EUA). The EUA for this test is supported by the [place] of Health and Human Service's (HHS's) declaration [...] SARS-CoV-2. Performed By: #### C VDTB #### [facility] [address] [place] [address] Dr. Manjula Arzate CREATININEon 06-13-2022 Creatinine [Mass/Vol] 0.98 mg/dL Normal 0.55-1.02 [facility] Comment on above: Performed By: #### C JESUS #### [facility] [address] [place] [address] Dr. Manjula Arzate EGFR-AF CITIZEN [place] >60 Normal >=60 [facility] Comment on above: Performed By: #### C JESUS #### [facility] [address] [place] [address] Dr. Manjula Arzate EGFR-NON AF CITIZEN OF [place] 55 mL/min/1.73m2 Critically low >=60 [facility] Comment on above: Performed By: #### C JESUS #### [facility] [address] [place] [address] ABD/PELV W CONon [...] by: DARIO BESS Date: 2022-06-13 17:40 Normal [facility] CT ABD/PELVIS WO CONon 11-27 CT [...] by: DARIO BESS Date: 2021-11-27 10:41 Normal [facility] Vital Signs Date Time Vital Sign Value Performing Clinician Facility 02-22-2025 13:170400 Body height 165.1 cm Harlan Knowles MD Work Phone: [facility] 02-22-2025 13:17-040 Body mass index (BMI) [Ratio] 31.4 kg/m2 Harlan Knowles MD Work Phone: [facility] 02-22-2025 13:17-040 Body temperature 97.9 [degF] Harlan Knowles MD Work Phone: [facility] 02-22-2025 13:17-040 Body weight 85.72 kg Harlan Knowles MD Work Phone: [facility] 02-22-2025 13:17-040 Diastolic blood pressure 89 mm[Hg] Harlan Knowles MD Work Phone: [facility] 02-22-2025 13:17-0400 Heart rate 76 /min Harlan Knowles MD Work Phone: [facility] 02-22-2025 13:17-0400 Respiratory rate 14 /min Harlan Knowles MD Work Phone: [facility] 02-22-2025 13:17-0400 SaO2% (BldA) [Mass fraction] 97 % Harlan Knowles MD Work Phone: [facility] 02-22-2025 13:17-0400 Systolic blood pressure 162 mm[Hg] Harlan Knowles MD Work Phone: [facility] 02-17-2025 08:55-0400 Body height 165.1 cm Harlan Knowles MD Work Phone: [facility] 02-17-2025 08:55-0400 Body mass index (BMI) [Ratio] 31.1 kg/m2 Harlan Knowles MD Work Phone: [facility] 02-17-2025 08:55-0400 Body weight 85.04 kg Harlan Knowles MD Work Phone: [facility] 02-17-2025 08:55-0400 Diastolic blood pressure 82 mm[Hg] Harlan Knowles MD Work Phone: [facility] 02-17-2025 08:55-0400 Heart rate 71 /min Harlan Knowles MD Work Phone: [facility] 02-17-2025 08:55-0400 Systolic blood pressure 148 mm[Hg] Harlan Knowles MD Work Phone: [facility] 01-27-2025 10:04-0400 Body height 165.1 cm Harlan Knowles MD Work Phone: [facility] 01-27-2025 10:04-0400 Body mass index (BMI) [Ratio] 31.6 kg/m2 Harlan Knowles MD Work Phone: [facility] 01-27-2025 10:04-0400 Body weight 86.29 kg Harlan Knowles MD Work Phone: [facility] 01-27-2025 10:04-0400 Diastolic blood pressure 80 mm[Hg] Harlan Knowles MD Work Phone: [facility] 01-27-2025 10:04-0400 Heart rate 72 /min Harlan Knowles MD Work Phone: [facility] 01-27-2025 10:04-0400 Respiratory rate 12 /min Harlan Knowles MD Work Phone: [facility] 01-27-2025 10:04-0400 SaO2% (BldA) [Mass fraction] 98 % Harlan Knowles MD Work Phone: [facility] 01-27-2025 10:04-0400 Systolic blood pressure 132 mm[Hg] Harlan Knowles MD Work Phone: [facility] 12-17-2024 13:01-0400 Body height 165.1 cm [facility] 12-17-2024 13:01-0400 Body mass index (BMI) [Ratio] 31.1 kg/m2 [facility] 12-17-2024 13:01-0400 Body weight 84.93 kg [facility] 12-17-2024 13:01-0400 Diastolic blood pressure 81 mm[Hg] [facility] 12-17-2024 13:01-0400 Heart rate 71 /min [facility] 12-17-2024 13:01-0400 Systolic blood pressure 135 mm[Hg] [facility] 10-08-2024 13:42-0400 Body height 170.2 cm Dutch Ellsworth MD Work Phone: [facility] 10-08-2024 13:42-0400 Body mass index (BMI) [Ratio] 28.81 kg/m2 Dutch Ellsworth MD Work Phone: [facility] 10-08-2024 13:42-0400 Body weight 83.46 kg Dutch Ellsworth MD Work Phone: [facility] 09-29-2024 12:51-0400 Body height 170.2 cm Maddie Ramachandran PA-C Work Phone: [facility] 09-29-2024 12:51-0400 Body mass index (BMI) [Ratio] 30.23 kg/m2 Maddie Mici PA-C Work Phone: [facility] 09-29-2024 12:51-0400 Body weight 87.54 kg Maddie Mici PA-C Work Phone: [facility] 09-29-2024 12:51-0400 Diastolic blood pressure 90 mm[Hg] Madd[facility]-C [facility] 09-29-2024 12:51-0400 Heart rate 82 /min Maddie Mici PA-C [facility] 09-29-2024 12:51-0400 SaO2% (BldA) [Mass fraction] 98 % Maddie Mici PA-C Work Phone: [facility] 09-29-2024 12:51-0400 Systolic blood pressure 140 mm[Hg] Maddie Mici PA-C Work Phone: [facility] 09-02-2024 11:08-0500 Body height 165.1 cm Maryan Mcwilliams MD Work Phone: [facility] 09-02-2024 11:08-0500 Body mass index (BMI) [Ratio] 31.9 kg/m2 Maryan Mcwilliams MD Work Phone: [facility] 09-02-2024 11:08-0500 Body weight 87.08 kg Maryan Mcwilliams MD Work Phone: [facility] 09-02-2024 11:08-0500 Diastolic blood pressure 79 mm[Hg] Maryan Mcwilliams MD Work Phone: [facility] 09-02-2024 11:08-0500 Heart rate 78 /min Maryan Mcwilliams MD Work Phone: [facility] 09-02-2024 11:08-0500 Systolic blood pressure 142 mm[Hg] Maryan Mcwilliams MD Work Phone: [phone] [place] [address] 07-16-2024 08:56-0500 Body height 165.1 cm Maryan Mcwilliams MD Work Phone: [facility] 07-16-2024 08:56-0500 Body mass index (BMI) [Ratio] 34.4 kg/m2 Maryan Mcwilliams MD Work Phone: [facility] 07-16-2024 08:56-0500 Body weight 93.89 kg Maryan Mcwilliams MD Work Phone: [phone])[phone] [place] [address] 07-16-2024 08:56-0500 Diastolic blood pressure 66 mm[Hg] Maryan Mcwilliams MD Work Phone: [phone])[phone] [place] [address] 07-16-2024 08:56-0500 Heart rate 83 /min Maryan Mcwilliams MD Work Phone: [facility] 07-16-2024 08:56-0500 Systolic blood pressure 112 mm[Hg] Maryan Mcwilliams MD Work Phone: [phone])[phone] [place] [address] 06-10-2024 15:24-0500 Body height 167.6 cm Zaida Child MD Work Phone: [facility] 06-10-2024 15:24-0500 Body mass index (BMI) [Ratio] 32.28 kg/m2 Zaida Child MD Work Phone: [facility] 06-10-2024 15:24-0500 Body weight 90.72 kg Zaida Child MD Work Phone: [facility] 06-10-2024 15:24-0500 Diastolic blood pressure 84 mm[Hg] Zaida Child MD Work Phone: [facility] 06-10-2024 15:24-0500 Systolic blood pressure 132 mm[Hg] Zaida Child MD Work Phone: [facility] 05-28-2024 11:08-0500 Body height 167.6 cm Zaida Child MD Work Phone: [facility] 05-28-2024 11:08-0500 Body mass index (BMI) [Ratio] 33.09 kg/m2 Zaida Child MD Work Phone: [facility] 05-28-2024 11:08-0500 Body temperature 97.39 [degF] Zaida Child MD Work Phone: [facility] 05-28-2024 11:08-0500 Body weight 92.99 kg Zaida Child MD Work Phone: [facility] 05-28-2024 11:08-0500 Diastolic blood pressure 84 mm[Hg] Zaida Child MD Work Phone: [facility] 05-28-2024 11:08-0500 Heart rate 72 /min Zaida Child MD Work Phone: [facility] 05-28-2024 11:08-0500 SaO2% (BldA) [Mass fraction] 97 % Zaida Child MD Work Phone: [facility] 05-28-2024 11:08-0500 Systolic blood pressure 146 mm[Hg] Zaida Child MD Work Phone: [facility] 05-19-2024 11:18-0500 Body height 165.1 cm [facility] 05-19-2024 11:18-0500 Body mass index (BMI) [Ratio] 33.1 kg/m2 [facility] 05-19-2024 11:18-0500 Body weight 90.26 kg [facility] 05-19-2024 11:18-0500 Diastolic blood pressure 76 mm[Hg] [facility] 05-19-2024 11:18-0500 Heart rate 91 /min [facility] 05-19-2024 11:18-0500 Systolic blood pressure 114 mm[Hg] [facility] 05-07-2024 14:39-0400 Body height 165.1 cm [facility] 05-07-2024 14:39-0400 Body mass index (BMI) [Ratio] 33.7 kg/m2 [facility] 05-07-2024 14:39-0400 Body weight 92.07 kg [facility] 05-07-2024 14:39-0400 Diastolic blood pressure 79 mm[Hg] [facility] 05-07-2024 14:39-0400 Heart rate 76 /min [facility] 05-07-2024 14:39-0400 Systolic blood pressure 116 mm[Hg] [facility] 04-29-2024 08:21-0400 Body height 165.1 cm [facility] 04-29-2024 08:21-0400 Body mass index (BMI) [Ratio] 33.8 kg/m2 [facility] 04-29-2024 08:21-0400 Body weight 92.3 kg [facility] 04-29-2024 08:21-0400 Diastolic blood pressure 82 mm[Hg] [facility] 04-29-2024 08:21-0400 Heart rate 74 /min [facility] 04-29-2024 08:21-0400 Respiratory rate 16 /min [facility] 04-29-2024 08:21-0400 SaO2% (BldA) [Mass fraction] 96 % [facility] 04-29-2024 08:21-0400 Systolic blood pressure 120 mm[Hg] [facility] 01-24-2024 10:54-0400 Body height 165.1 cm [facility] 01-24-2024 10:54-0400 Body mass index (BMI) [Ratio] 35.6 kg/m2 [facility] 01-24-2024 10:54-0400 Body weight 97.06 kg [facility] 01-24-2024 10:54-0400 Diastolic blood pressure 81 mm[Hg] [facility] 01-24-2024 10:54-0400 Heart rate 71 /min [facility] 01-24-2024 10:54-0400 Systolic blood pressure 121 mm[Hg] [facility] 01-15-2024 10:37-0400 Blood Pressure Location Katie Almonte [facility] 01-15-2024 10:37-0400 Body temperature 97.88 [degF] Katie Lue [facility] 01-15-2024 10:37-0400 Diastolic blood pressure 78 mm[Hg] Katie Lue [facility] 01-15-2024 10:37-0400 Heart rate 71 /min Katie Lue [facility] 01-15-2024 10:37-0400 Systolic blood pressure 132 mm[Hg] Katie Lue [facility] 02-20-2023 10:53-0400 Blood Pressure Location Katie Lue [facility] 02-20-2023 10:53-0400 Diastolic blood pressure 76 mm[Hg] Katie Lue [facility] 02-20-2023 10:53-0400 Heart rate 68 /min Katie Lue [facility] 02-20-2023 10:53-0400 Respiratory rate 16 /min Katie Lue [facility] 02-20-2023 10:53-0400 Systolic blood pressure 130 mm[Hg] Katie Lue [facility] 08-22-2022 11:50-0500 Blood Pressure Location Katie Lue [facility] 08-22-2022 11:50-0500 Diastolic blood pressure 78 mm[Hg] Katie Lue [facility] 08-22-2022 11:50-0500 Heart rate 68 /min Katie Lue [facility] 08-22-2022 11:50-0500 Respiratory rate 16 /min Katie Lue [facility] 08-22-2022 11:50-0500 Systolic blood pressure 132 mm[Hg] Katie Lue [facility] 12-05-2021 10:33-0400 Diastolic blood pressure 81 mm[Hg] Mally Key Jr. [facility] 12-05-2021 10:33-0400 Mean blood pressure 101 mm[Hg] Mally Key Jr. [facility] 12-05-2021 10:33-0400 Systolic blood pressure 142 mm[Hg] Mally Key Jr. [facility] 12-05-2021 10:12-0400 Blood Pressure Location Mally Key Jr. [facility] 12-05-2021 10:12-0400 Diastolic blood pressure 97 mm[Hg] Mally Key Jr. [facility] 12-05-2021 10:12-0400 Heart rate 87 /min Mally Key Jr. [facility] 12-05-2021 10:12-0400 Respiratory rate 16 /min Mally Key Jr. [facility] 12-05-2021 10:12-0400 Systolic blood pressure 163 mm[Hg] Mally Key Jr. [facility] Encounters Encounter Date Encounter Type Care Provider Facility Start: 03-04-2025 End: 03-05-2025 ambulatory Johny Perdomo DO Facility:[facility] Start: 02-25-2025 ambulatory Harlan Knowles MD Facility:[facility] Start: 02-25-2025 End: 02-25-2025 Telephone encounter Dutch Ellsworth MD Work Phone: [facility] Comment on above: clearance Start: 02-22-2025 End: 02-22-2025 ambulatory Harlan Knowles MD Work Phone: [facility] Work Phone: Start: 02-22-2025 End: 02-22-2025 Patient encounter procedure Shannan Polanco [employer] [facility] Work Phone: Start: 02-17-2025 Preoperative state Harlan montana MD Work Phone: [facility] Start: 02-17-2025 End: 02-17-2025 ambulatory Harlan Knowles MD Work Phone: [facility] Work Phone: Start: 02-17-2025 End: 02-17-2025 Patient encounter procedure Harlan Knowles MD -[facility] Work Phone: Start: 02-17-2025 End: 02-17-2025 Preoperative state Harlan Knowles MD [facility] Start: 02-10-2025 Non-patient / Non-visit Johny willis DO -[facility] Work Phone: Start: 01-27-2025 End: 01-27-2025 ambulatory Harlan Knowels MD Work Phone: [facility] Work Phone: Start: 01-27-2025 End: 01-27-2025 Patient encounter procedure Harlan Knowles MD -[facility] Work Phone: Start: 01-21-2025 End: 01-21-2025 ambulatory Dario Bess Facility:[facility] Start: 01-20-2025 End: 01-20-2025 Telephone encounter Dutch Ellsworth MD Work Phone: [facility] Start: 01-18-2025 End: 01-20-2025 ambulatory JOHNY [facility] Start: 01-18-2025 End: 01-20-2025 Subsequent hospital visit by physician [facility] Additional [facility] Comment on above: Osteoarthritis of ri ght knee, unspecified osteoarthritis type Start: 01-13-2025 End: 01-13-2025 ambulatory [facility] Facility:[facility] Start: 12-31-2024 End: 12-31-2024 ambulatory [facility] Facility:[facility] Start: 12-17-2024 End: 12-17-2024 ambulatory [facility] Work Phone: Start: 12-17-2024 End: 12-17-2024 Patient encounter procedure [facility] Work Phone: Start: 12-16-2024 End: 12-16-2024 ambulatory Dario Bess Facility:[facility] Start: 12-03-2024 ambulatory Dario Bess Facili ty:[facility] Start: 10-27-2024 End: 10-27-2024 Telephone encounter Marina [facility]illiam [facility] Comment on above: Results Start: 10-13-2024 End: 10-13-2024 ambulatory DUTCH ELLSWORTH [facility] Start: 10-08-2024 End: 10-08-2024 Office outpatient visit 15 minutes Dutch Ellsworth MD Work Phone: [facility] Comment on above: Subdural hemorrhage (CMS-HCC) (Primary Dx) Start: 10-08-2024 End: 10-08-2024 ambulatory [facility] Start: 10-06-2024 End: 10-06-2024 ambulatory KATHRYN SORENSEN [facility] Start: 09-29-2024 End: 09-29-2024 Office outpatient visit [facility] Work Phone: [facility] Comment on above: Vasovagal syncope (P rimary Dx) Start: 09-29-2024 End: 09-29-2024 ambulatory [facility] Start: 09-28-2024 End: 09-28-2024 Telephone encounter Shelby Miner [facility] Card[facility] Start: 09-10-2024 End: 09-10-2024 ambulatory [facility] Start: 09-02-2024 End: 09-02-2024 ambulatory Maryan Mcwilliams MD Work Phone: [facility] Work Phone: Start: 09-02-2024 End: 09-02-2024 Patient encounter procedure Maryan Mcwilliams MD Work Phone: [facility] Phys[facility] Work Phone: Start: 08-31-2024 End: 08-31-2024 ambulatory Harlan Knowles Facility:[facility] Start: 08-27-2024 End: 08-27-2024 Telephone encounter Dutch Ellsworth MD Work Phone: [facility] Start: 08-27-2024 End: 08-27-2024 ambulatory DORIAN EVANS [facility] Start: 08-24-2024 ambulatory [facility] Start: 08-21-2024 Non-patient / Non-visit Maryan Mcwilliams MD Work Phone: [facility] Physician [facility] Work Phone: Start: 08-20-2024 End: 08-20-2024 Telephone encounter Maggie Kenney RN [facility] Comment on above: needs event monitor ordered Start: 08-18-2024 End: 08-18-2024 Refill Hola Denae Johnson [employer] Work Phone: [facility] Start: 08-17-2024 End: 08-20-2024 Evaluation and management of inpatient HARLAN KNOWLES [facility] Start: 08-17-2024 ambulatory HARLAN KNOWLES [facility] Start: 08-17-2024 Non-patient / Non-visit Maryan Mcwilliams MD Work Phone: [facility] Work Phone: Start: 07-16-2024 End: 07-16-2024 ambulatory Maryan Mcwilliams MD Work Phone: [facility] Work Phone: Start: 07-16-2024 End: 07-16-2024 Patient encounter procedure Maryan Mcwilliams MD Work Phone: [facility] Physician [facility] Work Phone: Start: 07-09-2024 Non-patient / Non-visit Maryan Mcwilliams MD Work Phone: [facility] Work Phone: Start: 07-08-2024 Non-patient / Non-visit Maryan Mcwilliams MD Work Phone: [facility] Work Phone: Start: 07-08-2024 End: 07-08-2024 ambulatory Maryan Mcwilliams Facility:[facility] Start: 07-08-2024 End: 07-08-2024 Departed Referred Maryan Mcwilliams MD Work Phone: [facility] Start: 06-10-2024 End: 06-10-2024 Office outpatient visit 15 minutes Zaida Child MD Work Phone: [facility] Comment on above: Superficial phlebiti s and thrombophlebitis of right lower extremity (Primary Dx); Varicose veins of bilateral lower extremities with pain Start: 06-10-2024 End: 06-10-2024 ambulatory ZAIDA CHILD [facility] Start: 06-03-2024 End: 06-04-2024 Orders Only Rosanne Merrill LPN [facility] Start: 05-28-2024 End: 05-28-2024 Office outpatient new 30 minutes Zaida Child MD Work Phone: [facility] Comment on above: Superficial phlebiti s and thrombophlebitis of right lower extremity (Primary Dx); Right leg pain; Phlebitis and thrombophlebitis of unspecified site; Varicose veins of bilateral lower extremities with pain Start: 05-19-2024 End: 05-19-2024 ambulatory [facility] Work Phone: Start: 05-19-2024 End: 05-19-2024 Patient encounter procedure [facility] Physician [facility] Work Phone: Start: 05-07-2024 Non-patient / Non-visit [facility] Phys[facility] Work Phone: Start: 05-07-2024 End: 05-07-2024 ambulatory [facility] Work Phone: Start: 05-07-2024 End: 05-07-2024 Patient encounter procedure [facility] Phys[facility] Work Phone: Start: 2024 Non-patient / Non-visit [facility] Physician [facility] Work Phone: Start: 05-03-2024 Non-patient / Non-visit Maryan Mcwilliams MD Work Phone: [facility] Physician [facility] Work Phone: Start: 05-01-2024 Patient encounter status [facility] Start: 05-01-2024 Preprocedural examin ation done Harlan Knowles MD Work Phone: [facility] Start: 05-01-2024 Non-patient / Non-visit [facility] Work Phone: Start: 04-29-2024 End: 04-29-2024 ambulatory [facility] Work Phone: Start: 04-29-2024 End: 04-29-2024 Encounter for other preprocedural examination Maryan Mcwilliams MD Work Phone: [facility] Start: 04-29-2024 End: 04-29-2024 Patient encounter procedure [facility] Phys[facility] Work Phone: Start: 04-10-2024 End: 04-10-2024 ambulatory Harlan Knowles MD Facility:[facility] Start: 03-20-2024 ambulatory Johny Umaña cility:[facility] Start: 02-05-2024 Patient encounter procedure [facility] Start: 01-24-2024 End: 01-24-2024 ambulatory [facility] Work Phone: Start: 01-24-2024 End: 01-24-2024 Patient encounter procedure [facility] Work Phone: Start: 01-15-2024 End: 01-15-2024 ambulatory Katie Almonte Facility:[facility] Start: 01-15-2024 End: 01-15-2024 Lab Drop off Katie Cardozo. [facility] Start: 01-15-2024 End: 01-15-2024 ambulatory Katie MPadilla Josée Facility:[facility] Start: 01-15-2024 End: 01-15-2024 Patient encounter procedure Katie Almonte [facility] Start: 08-01-2023 End: 08-01-2023 ambulatory Harlan Knowles Other [facility] Other Start: 08-01-2023 Telephone encounter Harlan Benson [facility] Start: 07-30-2023 End: 07-30-2023 ambulatory Harlan Knowles Other [facility] Other Start: 07-30-2023 Telephone encounter Harlan Benson [facility] Start: 02-20-2023 End: 02-20-2023 ambulatory Katie Almonte Facility:[facility] Start: 02-20-2023 End: 02-20-2023 Patient encounter procedure Katie Almonte [facility] Start: 08-22-2022 End: 08-22-2022 Patient encounter procedure Katie Almonte [facility] Start: 08-01-2022 End: 08-01-[address] ANTWON BAKER Facility:[facility] Start: 07-30-2022 End: 07-31-[address] ANTWON BAKER Facility:[facility] Start: 07-12-2022 Adult health examination Vanessa Knowles Other [facility] Other Start: 06-13-2022 End: 06-14-[address] HARLAN KNOWLES Facility:[facility] Start: 12-05-2021 End: 12-05-2021 Patient encounter procedure Mally Key Jr. [facility] Start: 11-27-2021 End: 11-28-[address] MALLY KEY JR Facility:[facility] Procedures Date Procedure Procedure Detail Performing Clinician Start: 01-18-2025 Radiologic exam knee complete 4/more views Johny Tex LipscombPerdomo DO Work Phone: Start: 10-08-2024 Follow-up visit Follow-up DUTCH ELLSWORTH Start: 08-17-2024 Adult depression scr eening assessment Hola Johnson [employer] Work Phone: Start: 07-08-2024 Urine culture Maryan Brody MD Work Phone: Start: 05-01-2024 MRSA Screening Culture Start: 07-29-2019 Cholecystectomy Mally Key Jr. Start: 07-15-2016 Parathyroidectomy Gregg Key Jr. Start: 12-26-2015 General examination of patient Harlan Knowles Other Start: 04-29-2015 Laboratory test resu lt abnormal Harlan Knowles Other Start: 04-29-2015 Screening mammography Mervin Knowles Other Start: 12-26-2011 Colonoscopy Mally gilbert Jr. Start: 07-15-2009 Biopsy of breast Mally Key Jr. Start: 07-15-1996 Total abdominal hyst erectomy with bilateral salpingo-oophorectomy Mally Key Jr. Start: 07-15-1989 Splenectomy Mally gilbert Jr. Bilateral cataracts (disorder) Mally Key Jr. Ligation of fallopian tube Denae Key Jr. Screening for malign ant neoplasm of breast Harlan Knowles Other Plan of Treatment Date Care Activity Detail Author Start: 09-29-2025 Tobacco Screening Tobacco Screening [facility] Start: 08-27-2025 Tobacco Screening Tobacco Screening [facility] Start: 08-17-2025 Depression Screening Depression Scre ening [facility] Start: 08-17-2025 Tobacco Screening Tobacco Screening [facility] Start: 06-10-2025 Tobacco Screening Tobacco Screening [facility] Start: 05-28-2025 Tobacco Screening Tobacco Screening [facility] Start: 03-15-2025 Influenza vaccination Influenza Vacc ine [facility] Start: 02-12-2025 Influenza vaccination Flu vaccine (# 1) Ronak [facility] Start: 10-13-2024 End: 10-13-2024 Patient encounter procedure 10/13/2024 1:00 PM EDT Appointment [facility] [address] [place] [id number] [facility] Start: 10-08-2024 End: 10-08-2025 CT Head WO contrast CT brain without contrast Imaging Routine Subdural hemorrhage (CMS-HCC) Expected: 10/08/2024, Expires: 10/08/2025 [facility] Work Phone: Comment on above: Expected: 10/08/2024 , Expires: 10/08/2025 Start: 10-08-2024 End: 10-08-2024 Patient encounter procedure 10/08/2024 2:00 PM EDT [facility] [address] [place] [address] Dutch Ellsworth MD [address] [place] [address] [facility] Start: 09-29-2024 End: 09-29-2024 Patient encounter procedure 09/29/2024 1:00 PM EDT Office Visit [facility] [address] [facility] [place] [phone] Maddie Ramachandran PA-C [address] [place] [address] [facility] Start: 09-10-2024 End: 08-27-2025 CT Head WO contrast CT brain without contrast Imaging Routine Subdural hemorrhage (CMS-HCC) Expected: 09/10/2024 (Approximate), Expires: 08/27/2025 [facility] Work Phone: Comment on above: Expected: 09/10/2024 (Approximate), Expires: 08/27/2025 Start: 06-25-2024 End: 06-25-2024 Patient encounter procedure 06/25/2024 9:20 AM EST Office Visit [facility] [address] [place] [phone] Zaida Child MD [address], [address] [address] [facility] Start: 06-18-2024 End: 06-18-2024 Patient encounter procedure 06/18/2024 10:20 AM EST Office Visit [facility] [address] [place] [phone] Zaida Child MD [address], [address] [address] [facility] Start: 05-19-2024 Patient referral [facility] Work Phone: Start: 03-15-2024 COVID-19 Vaccine ( season) COVID-19 Vaccine ( season) [facility] Start: 07-20-2023 Tobacco Screening Tobacco Screening [facility] Start: 2022 Respiratory Syncytia l Virus (RSV) or age 60 yrs+ (1 - 1-dose 75+ series) Respiratory Syncytial Virus (RSV) or age 60 yrs+ (1 - 1-dose 75+ series) [facility] Start: 2012 Fall Risk Screening Fall Risk Screen ing [facility] Start: 2002 Screening for osteoporosis DEXA (modify frequency per FRAX score) [facility] Start: 1966 DTaP,Tdap and Td Vaccines (1 - Tdap) DTaP,Tdap and Td Vaccines (1 - Tdap) [facility] Start: 10-21-1966 DTaP/Tdap/Td vaccine (1 - Tdap) DTaP/Tdap/Td vaccine (1 - Tdap) [facility] Start: 1965 Hepatitis C screening Hepatitis C sc reen [facility] Start: 1959 Depression Screen Depression Screen [facility] Start: 1959 Depression Screening Depression Scre ening [facility] DXA Skeletal system.axial Views for bone density [facility] MG Breast - bilatera l Screening [facility] MG Breast - bilatera l Screening [facility] Patient referral [facility] Work Phone: US Kidney - bilateral [facility] US Lower extremity v ein - right [facility] XR Tibia and Fibula - right 2 Views [facility] Immunizations Immunization Date Immunization Notes Care Provider [facility] 04-16-2024 influenza, injectabl e, madin elvia canine kidney, preservative free Hola Johnson [employer] Work Phone: [facility] 04-16-2024 influenza virus vaccine, unspecified formulation Marina Gilliam RN [facility] 04-16-2022 influenza virus vaccine, unspecified formulation Hola Johnson [employer] Work Phone: [facility] 04-10-2022 SARS-CoV-2 (COVID-19 ) [id number] Katie Lue [facility] 04-11-2021 SARS-CoV-2 (COVID-19 ) mRNA BNT-162b2 vax Katie Lue [facility] 02-15-2021 zoster vaccine recombinant Katie Lue [facility] 11-30-2020 zoster vaccine recombinant Katie Lue [facility] 08-30-2020 SARS-CoV-2 (COVID-19 ) mRNA BNT-162b2 vax Katie Lue [facility] Comment on above: Result Comment: 2022: [id number] 08-09-2020 SARS-CoV-2 (COVID-19 ) mRNA BNT-162b2 vax Katie Lue [facility] Comment on above: Result Comment: 2022: [id number] 05-16-2020 influenza virus vaccine, split virus (incl. purified surface antigen) Harlan Knowles Other [employer] [facility] [employer] Other 05-16-2020 influenza virus vaccine, unspecified formulation [facility] 04-26-2020 influenza virus vaccine, unspecified formulation Katie Lue [facility] 12-16-2018 pneumococcal polysaccharide vaccine, 23 valent Harlan Knowles Other [facility] 11-07-2017 pneumococcal conjuga te vaccine, 13 valent Mally Key Jr. [facility] 11-07-2017 pneumococcal Conjuga te, unspecified formulation; Translations: [Need for prophylactic vaccination against Streptococcus pneumoniae (pneumococcus)] Harlan Knowles Other [facility] [employer] Other 10-13-2017 pneumococcal polysaccharide vaccine, 23 valent Katie Lue [facility] 04-14-2017 influenza virus vaccine, unspecified formulation Katie Lue [facility] Payers Date Payer Category Payer Self-pay 2020 [facility] Member Subscriber Plan / Payer (Effective 2020-Present) Name: Damaso Kan Relation to Subscriber: Self Name: Damaso Kan Payer ID: Not on file Type: Not on file Address: [place] [id number] 2012 Medicare [id number] 2012 Unknown 1959 Medicare [id number] 1959 Unknown [id number] 1947 Unknown [id number] 2.16.840.1.442878.3.579.2.5 93 1947 Unknown [id number] 2.16.840.1.204355.3.579.2.5 93 1947 Unknown [id number] 2.16.840.1.465507.3.579.2.5 93 1947 Unknown [id number] ..840.1.201085.3.579.2.5 93 1947 Unknown [id number] 2.16.840.1.930900.3.579.2.7 27 1947 Unknown [id number] 2.16.840.1.062562.3.579.2.7 27 1947 Unknown [id number] 2.16.840.1.554881.3.579.2.7 27 1947 Unknown [id number] 2.16.840.1.100736.3.579.2.1 286 1947 Unknown [id number] 2.16.840.1.634725.3.579.2.1 286 1947 Unknown [id number] 2.16.840.1.487100.3.579.2.1 286 1947 Unknown [id number] 2.16.840.1.904306.3.579.2.1 286 1947 Unknown [id number] 2.16.840.1.885144.3.579.2.1 286 1947 Unknown [id number] 2.16.840.1.222358.3.579.2.1 286 1947 Unknown [id number] 2.16.840.1.699914.3.579.2.1 286 1947 Unknown [id number] 2.16.840.1.593385.3.579.2.1 286 1947 Unknown [id number] 2.16.840.1.764989.3.579.2.1 286 1947 Unknown [id number] 2.16.840.1.148028.3.579.2.1 286 1947 Unknown [id number] 2.16.840.1.944692.3.579.2.1 286 1947 Unknown [id number] 2.16.840.1.141483.3.579.2.1 286 1947 Unknown [id number] 2.16.840.1.498133.3.579.2.1 286 1947 Unknown [id number] 2.16.840.1.305706.3.579.2.1 74 1947 Unknown [id number] 2.16.840.1.006761.3.579.2.7 18 1947 Unknown [id number] 2.16.840.1.260816.3.579.2.7 18 1947 Unknown [id number] 2.16.840.1.052846.3.579.2.7 18 1947 Unknown [id number] 2.16.840.1.595165.3.579.2.7 18 1947 Unknown [id number] 2.16.840.1.893955.3.579.2.7 18 1947 Unknown [id number] 2.16.840.1.158981.3.579.2.7 18 1947 Unknown [id number] 2.16.840.1.233040.3.579.2.1 96 1947 Unknown [id number] 2.16.840.1.837417.3.579.2.1 96 1947 Unknown [id number] 2.16.840.1.034346.3.579.2.1 96 Medicare Medicare [id number] Unknown [id number] 2.16.840.1.805984.3.579.2.5 31 Social History Date Type Detail Facility Start: 12-05-2021 End: 07-18-2022 Tobacco smoking status Never smoked tobacco (finding) [facility] Start: 08-17-2024 End: 09-29-2024 Sex Assigned At Female [facility] Tobacco smoking status Never [facility] Start: 1945 Sex Assigned At Female [facility] Start: 05-31-2021 End: 07-16-2024 Sex Female (finding) [facility] Start: 07-18-2022 Tobacco use and exposure Smokeless tobacco non-user [facility] [employer] [facility] Start: 08-17-2024 End: 09-29-2024 Alcoholic beverage intake Ex-drinker (finding) [facility] Start: 08-17-2024 End: 09-29-2024 History of Social function [facility] Has the [employer], or I Move You threatened to shut off services in your home in past 12Mo No [facility] How often to you hav e a drink containing alcohol? Monthly or less [facility] [employer] [facility] How many standard drinks containing alcohol do you have on a typical day? 1 or 2 [facility] [employer] [facility] How often do you hav e 6 or more drinks on 1 occasion? Never [facility] Start: 08-17-2024 Alcohol Comment very seldom [facility] Start: 1945 Sex assigned at Not on file P [facility] [employer] [facility] Start: 05-28-2024 End: 06-10-2024 Alcoholic beverage intake Lifetime non-drinker (finding) [facility] [employer] [facility] Start: 07-18-2022 Alcohol Comment rare [facility] Tobacco smoking stat [facility] Tobacco smoking consumption unknown [facility] Goals Date Patient Goal Desired Activity /State Personal health goal Comment on above: Formatting of this n ote might be different from the original. Evaluation of progress towards goal: safe transition home self care with spouse and family support. Functional Status Date Assessment Result Facility 01-15-2024 Functional Status N/A [facility] 02-20-2023 Functional Status N/A [facility] 08-22-2022 Functional Status N/A [facility] [employer] [facility] Work Phone: Mental Status Date Assessment Result Facility [facility] Notes 12-05-2021 to 03-11-2025 Telephone Encounter - Rashida [facility] 02/25/2025 5:47 PM EDTTelephone Encounter - Rashida [facility] 02/25/2025 5:47 PM EDTTelephone Encounter - [facility] 02/25/2025 5:47 PM EDT Note Date & Type Note Facility 03-11-2025 Note Admission Informatio n Pt admitted for R TKA Hospital Course Patient admitted for R TKA. Patient did well. Pain well controlled. Pt discharged to home pOD#1 Significant Findings R TKA Medications Home acetaminophen 325 mg oral tablet, 650 mg, Oral, QID acetaminophen 325 mg oral tablet, 650 mg, Oral, q4hr, PRN Biotin 5000 mcg oral capsule, 1 tabs, Oral, Daily, AM cranberry 125 mg oral tablet, disintegrating, See Instructions, AM Estrace Vaginal 0.1 mg/g vaginal cream, 0.1 mg, VAG, q4day, use with enclosed calibrated applicator as directed. wash applicator with mild soap/warm water after use. Macrodantin 100 mg oral capsule, 100 mg= 1 caps, Oral, Daily, AM Tylenol, 1000 mg, Oral, q6hr, PRN URINARY HARMONY, See Instructions, AM Vitamin D3 125 mcg (5000 intl units) oral tablet, disintegrating, 125 mcg= 1 tabs, Oral, Daily, AM ZyrTEC 10 mg oral tablet, 10 mg= 1 tabs, Oral, Daily, PRN Prescriptions No active Prescriptions Procedures and Treatment Provided R TKA Physical Exam Vitals & Measurements T: 36.7 ?C (Oral) HR: 64 (Monitored) RR: 18 BP: 118/70 SpO2: 98% HT: 167 cm HT: 167 cm WT: 87.0 kg BMI: 32.99 BMI: 32.99 RLE: surgical dressings are c/d/i. comp soft and compressible. C/d/i. Additional Vitals No qualifying data available. Discharge Plan Plan to DC home. S/p R TKA Osteoarthritis of right knee Patient Discharge Condition Good Discharge Disposition DC to home Electronically signed by Johny Perdomo DO 03/11/25 22:00 EDT [facility] 02-25-2025 Miscellaneous Notes Formattin g of this note might be different from the original. Damaso calls to ask if we have received a fax requesting surgical clearance. She was informed that no fax was received. She says she will have it re-faxed. Damaso was called and informed that the fax was received. She was informed that she has not been seen in the office since 10/08/24. The form received suggests an appointment for evaluation. Gluing Machine Adjuster attempted to contact the Ortho institute to discuss, but was unable to reach a person or leave a message. Damaso suggests calling [phone] ext [phone] and speaking to Christina. documented in this encounter [facility] 02-25-2025 Telephone encount er Note Damaso calls to ask if we have received a fax requesting surgical clearance. She was informed that no fax was received. She says she will have it re-faxed. [facility] 02-25-2025 Telephone encount er Note Damaso was called and informed that the fax was received. She was informed that she has not been seen in the office since 10/08/24. The form received suggests an appointment for evaluation. Gluing Machine Adjuster attempted to contact the Ortho institute to discuss, but was unable to reach a person or leave a message. Damaso suggests calling [phone] ext [phone] and speaking to [facility]. [facility] 01-20-2025 Miscellaneous Notes Formattin g of this note might be different from the original. Damaso leaves a message to say that she has an upcoming knee surgery planned. She states, the orthopedic doctor would like clearance from Dr. Ellsworth to say that it is okay for me to have anesthesia and be placed on a blood thinner post operatively. *please ask Damaso to have the ortho provider fax a surgical clearance. Call returned. Damaso was asked to have the orthopedic surgeon send a clearance regarding the surgical procedure. She was given the office fax number. She was also advised to call the office back if she has any difficulty regarding the clearance letter. Tiffanivalerianorubén verbalized understanding. documented in this encounter [facility] 07-09-2025 Telephone encount er Note Damaso leaves a message to say that she has an upcoming knee surgery planned. She states, the orthopedic doctor would like clearance from Dr. Ellsworth to say that it is okay for me to have anesthesia and be placed on a blood thinner post operatively. *please ask Damaso to have the ortho provider fax a surgical clearance. [facility] 01-20-2025 Telephone encount er Note Call returned. Damaso was asked to have the orthopedic surgeon send a clearance regarding the surgical procedure. She was given the office fax number. She was also advised to call the office back if she has any difficulty regarding the clearance letter. Damaso verbalized understanding. [facility] 12-30-2024 Note Radiology Sclerotherapy Sclerotherapy is a procedure that is done to make varicose veins and spider veins look better and it helps to relieve aching, swelling, cramping, and pain in the legs. Varicose veins are veins that have become enlarged, bulging, and twisted due to a damaged valve that causes blood to collect (pool) in the veins. Spider veins are small varicose veins. Sclerotherapy is usually done on the legs where varicose and spider veins occur most of the time. Sclerotherapy usually works best for smaller spider and varicose veins. This procedure involves putting a chemical directly into the lining of the vein, causing it to swell and stick together. Over time, the vessel turns into scar tissue that fades from view. You may need more than one treatment to close a vein all the way. The number of veins treated in one session depends on the size and location of the veins, and on your overall medical condition. Tell a health care provider about: ? Any allergies you have. ? All medicines you are taking, including vitamins, herbs, eye drops, creams, and ojvh-xfx-dajxclv medicines. ? Any bleeding problems you have. ? Any surgeries you have had. ? Any medical conditions you have. ? Whether you are or may be . What are the risks? Your health care provider will talk with you about risks. These may include: ? Infection. ? Bleeding or blood clots. ? Allergic reactions to medicines or to the chemicals being used, which are called sclerosing agents. ? Larger treated veins becoming lumpy or hard. This may last for several months before getting better. ? Small sores (ulcers) forming at the injection site. ? Red streaking in the groin area or bruising around the injection site. ? Brown lines or spots at the injection site. These usually disappear within 3 to 6 months, but in rare cases they can be permanent. What happens before the procedure? Medicines Ask your health care provider about: ? Changing or stopping your regular medicines. These include any diabetes medicines or blood thinners you take. ? Taking medicines such as aspirin and ibuprofen. These medicines can thin your blood. Do not take them unless your health care provider tells you to. ? Taking gqby-zzo-nalhgar medicines, vitamins, herbs, and supplements. Tests ? You may have an ultrasound of the affected area to check for blood clots and to check blood flow. ? In rare cases, you may have an X-ray procedure to check how blood flows through your veins (angiogram). For an angiogram, a dye is injected to highlight your veins on X-rays. General instructions ? Do not use lotions or creams on your legs before the procedure unless your health care provider approves. ? Follow instructions from your health care provider about what you may eat and drink. ? Do not use any products that contain nicotine or tobacco before the procedure. These products include cigarettes, chewing tobacco, and vaping devices, such as e-cigarettes. If you need help quitting, ask your health care provider. ? Ask your health care provider what steps will be taken to help prevent infection. These steps may include: ? Removing hair at the injection site. ? Washing skin with a soap that kills germs. What happens during the procedure? ? The treatment area will be cleaned. ? A small, thin needle is used to inject a chemical (sclerosant) into your varicose or spider veins. The sclerosant will irritate the lining of the vein and cause the vein to close below where the needle was put in. You may feel some stinging, burning, or irritation. ? The injection may be repeated for more than one varicose or spider vein. ? After the procedure, the area around where the needle was put in will be wrapped with elastic bandages. The procedure may vary among health care providers and hospitals. What can I expect after the procedure? ? Your blood pressure, heart rate, breathing rate, and blood oxygen level will be monitored until you leave the hospital or clinic. ? The area around the injection site will be wrapped with elastic bandages. If there is bleeding, the bandages may be changed. ? After the treatment, you will be able to drive yourself home. ? Wear compression stockings as told by your health care provider. These stockings help to prevent blood clots and reduce swelling in your legs. Contact a health care provider if: ? You have more redness, swelling, or pain around any injection sites. ? You have more fluid or blood coming from any injection sites. ? Any injection sites feel warm to the touch. ? You have pus or a bad smell coming from any injection sites. ? You have a fever. Get help right away if: ? You have leg pain that gets worse when you walk. ? You have redness or swelling in your leg that is getting worse. ? You have trouble breathing. ? You have chest pain. These symptoms may be an emergency. Get help right away. Call 911. (more content not included)... [facility] 12-17-2024 Evaluation note Diagnosis Onset Date Resolution Osteoarthritis of right knee acute December 17, 2024 1:00pm Subdural hemorrhage acute December 17, 2024 1:00pm Screening mammogram for breast cancer acute January 27, 2025 10:20am [facility] Work Phone: 1(816) 838-764206-05-2025 Evaluation note* Diagnosis Onset Date Resolution Status Admit Date Osteoarthritis of right knee acute December 17, 2024 1:00pm Subdural hemorrhage acute December 17, 2024 1:00pm Medicare annual wellness vis it, subsequent acute January 27, 2025 10:20am Osteoarthritis of right knee acute January 27, 2025 10:20am Recurrent UTI (urinary tract infection) acute January 27, 2025 10:20am Screening mammogram for [facility] cancer acute January 27, 2025 10:20am Subdural hemorrhage acute January 27, 2025 10:20am [facility] Work Phone: [phone]) 849-258906-05-2025 Evaluation note* Diagnosis Onset Date Resolution Status Admit Date Osteoarthritis of right knee acute December 17, 2024 1:00pm Subdural hemorrhage acute December 17, 2024 1:00pm Medicare annual wellness vis it, subsequent acute January 27, 2025 10:20am Osteoarthritis of right knee acute January 27, 2025 10:20am Recurrent UTI (urinary tract infection) acute January 27, 2025 10:20am Screening mammogram for apple [facility] cancer acute January 27, 2025 10:20am Subdural hemorrhage acute January 27, 2025 10:20am Osteoarthritis of right knee acute February 17, 2025 8:51am Preoperative clearance acute 2024 8:51am Recurrent UTI (urinary tract infection) acute February 17, 2025 8:51am [facility] Work Phone: 1(576) 200-254305-21-2025 NoteRadiology Sclerotherapy Sclerotherapy is a procedure that is done to make varicose veins and spider veins look better and it helps to relieve aching, swelling, cramping, and pain in the legs. Varicose veins are veins that have become enlarged, bulging, and twisted due to a damaged valve that causes blood to collect (pool)in the veins. Spider veins are small varicose veins. Sclerotherapy is usually done on the legs where varicose and spider veins occur most of the time. Sclerotherapy usually works best for smaller spider and varicose veins. This procedure involves putting a chemical directly into the lining of the vein, causing it to swell and stick together. Over time, the vessel turns into scar tissue that fades from view. You may need more than one treatment toclose a vein all the way. The number of veins treated in one session depends on the size and location of the veins, and on your overall medical condition. Tell a health care provider about: ? Any allergies you have. ? All medicines you are taking, including vitamins, herbs, eye drops, creams, and ibhl-qgw-wyyuaui medicines. ? Any bleeding problems you have. ? Any surgeries you have had. ? Any medical conditions you have. ? Whether you are or may be . What are the risks? Your health care provider will talk with you about risks. These may include: ? Infection. ? Bleeding or blood clots. ? Allergic reactions to medicines or to the chemicals being used, which are called sclerosing agents. ? Larger treated veins becoming lumpy or hard. This may last for several months before getting better. ? Small sores (ulcers) forming at the injection site. ? Red streaking in the groin area or bruising around the injection site. ? Brown lines or spots at the injection site. These usually disappear within 3 to 6 months, but in rare cases they can be permanent. What happens before the procedure? Medicines Ask your health care provider about: ? Changing or stopping your regular medicines. These include any diabetes medicines or blood thinners you take. ? Taking medicines such as aspirin and ibuprofen. These medicines can thin your blood. Do not take them unless your health care provider tells you to. ? Taking egsi-rnh-eqgqxhk medicines, vitamins, herbs, and supplements. Tests ? You may have an ultrasound of the affected area to check for blood clots and to check blood flow. ? In rare cases, you may have an X-ray procedure to check how blood flows through your veins (angiogram). For an angiogram, a dye is injected to highlight your veins on X-rays. General instructions ? Do not use lotions or creams on your legs before the procedure unless your health care provider approves. ? Follow instructions from your health care provider about what you may eat and drink. ? Do not use any products that contain nicotine or tobacco before the procedure. These products include cigarettes, chewing tobacco, and vaping devices, such as e-cigarettes. If you need help quitting, ask your health care provider. ? Ask your health care provider what steps will be taken to help prevent infection. These steps mayinclude: ? Removing hair at the injection site. ? Washing skin with a soap that kills germs. What happens during the procedure? ? The treatment area will be cleaned. ? A small, thin needle is used to inject a chemical (sclerosant) into your varicose or spider veins. The sclerosant will irritate the lining of the vein and cause the vein to close below where the needle was put in. You may feel some stinging, burning, or irritation. ? The injection may be repeated for more than one varicose or spider vein. ? After the procedure, the area around where the needle was put in will be wrapped with elastic bandages. The procedure may vary among health care providers and hospitals. What can I expect after the procedure? ? Your blood pressure, heart rate, breathing rate, and blood oxygen level will be monitored until you leave the hospital or clinic. ? The area around the injection site will be wrapped with elastic bandages. If there is bleeding, the bandages may be changed. ? After the treatment, you will be able to drive yourself home. ? Wear compression stockings as told by your health care provider. These stockings help to prevent blood clots and reduce swelling in your legs. Contact a health care provider if: ? You have more redness, swelling, or pain around any injection sites. ? You have more fluid or blood coming from any injection sites. ? Any injection sites feel warm to the touch. ? You have pus or a bad smell coming from any injection sites. ? You have a fever. Get help right away if: ? You have leg pain that gets worse when you walk. ? You have redness or swelling in your leg that is getting worse. ? You have trouble breathing. ? You have chest pain. These symptoms may be an emergency. Get help right away. Call 911. (more content not included)...[id number] Miscellaneous Notes* Telephone Encounter - Marina Gilliam RN - 10/27/2024 10:08 AM EDT Lav[facility] calls asking for results- informed will discuss with provider. [facility] encounter Note* Telephone Encounter - Marina Gilliam RN - 10/27/2024 10:08 AM EDT Lav[facility] calls asking for results- informed will discuss with provider. [facility]03-27-[facility]25 History of Present illness Narrative* Dutch Ellsworth MD - 10/08/2024 2:00 PM EDT Images from the original note were not included. [facility] [address] [place] [address], [address] [place] [address] * CHART NOTE ? 10/08/2024 Patient: Damaso Kan 1945 [id number] Physician: Dutch Ellsworth MD REASON FOR VISIT Follow up from subdural hematoma INTERVAL HISTORY She reports she is doing well. She says she has some mild right sided headaches. These respond wellto the Tylenol. She has not had any seizures. She is eating well, no vomiting reported. No vision concerns. ALLERGIES Allergies Allergen Reactions Codeine Nausea and GI Disturbance MEDICATIONS Current Outpatient Medications: acetaminophen (TYLENOL EXTRA STRENGTH) 500 mg tablet, Take 2 tablets (1,000 mg total) by mouth every 6 (six) hours as needed for pain., Disp: , Rfl: biotin 1 mg capsule, Take 1 capsule by mouth in the morning., Disp: , Rfl: cholecalciferol, vitamin D3, 5,000 units tablet, Take 1 tablet (5,000 Units total) by mouth in the morning., Disp: , Rfl: cranberry 500 mg capsule, Take 1 mg by mouth in the morning., Disp: , Rfl: estradioL (ESTRACE) 0.01 % (0.1 mg/gram) vaginal cream, Insert 2 g into the vagina 2 (two) times a week., Disp: , Rfl: loratadine (CLARITIN) 10 mg tablet, Take 1 tablet (10 mg total) by mouth daily as needed for allergies., Disp: , Rfl: NON FORMULARY, Take 1 each by mouth in the morning. Med Name: [employer] vitamin for bladder health., Disp: , Rfl: VITAL SIGNS Ht 170.2 cm (5' 7.01 ) Wt 83.5 kg (184 lb) BMI 28.81 kg/m PHYSICAL EXAMINATION She is awake and attentive in no distress. EOMI, face symmetric, tongue is midline. No weakness appreciated in ferguson upper or lower extremity muscle groups. No pathologic reflexes. SILT in ferguson upper and lower extremity dermatomes. IMAGING CT head 09/10/24 IMPRESSION: Ongoing evolution of right frontoparietal subdural hematoma, decreasing in overall extent of blood products, slight interval reduction in size of maximal caliber, now measuring up to 1.5 cm [previously 1.7 cm, when measured similarly]. Resolving right parietal scalp hematoma. IMPRESSION AND PLAN 79 year old female with right sided subdural hematoma. She appears to be doing well at today's visit. We will get a repeat head CT to ensure continued resolution of the subdural hematoma. If there isresidual hematoma may consider MMA embolization. If it has enlarged, although clinically this seemsunlikely, we could consider felipa hole drainage followed by MMA embolization. Dutch Ellsworth MD [facility] Instructions* Patient Instructions* Adamaris Dumont - 10/08/2024 2:00 PM EDT Patient seen today by dr. Ellsworth CT brain w/o contrast Call for results KM documented [facility] History of Present illness Narrative* Maddie Ramachandran PA-C - 09/29/2024 1:00 PM EDT Damaso Kan Date of visit: 09/29/2024 Date of : 1945 Age: 79 y.o. Patient Active Problem List Diagnosis Visual impairment Kidney mass Arthritis Superficial phlebitis and thrombophlebitis of right lower extremity Varicose veins of bilateral lower extremities with pain Subdural hemorrhage ([facility]) Acute cystitis Asymptomatic bacteriuria Cholelithiasis Hyperparathyroidism ([facility]) Osteopenia Urinary urgency Vaginal atrophy Vasovagal syncope Allergies Allergen Reactions Codeine Nausea and GI Disturbance Current Outpatient Medications Medication Sig Dispense Refill acetaminophen (TYLENOL EXTRA STRENGTH) 500 mg tablet Take 2 tablets (1,000 mg total) by mouth every6 (six) hours as needed for pain. biotin 1 mg capsule Take 1 capsule by mouth in the morning. cholecalciferol, vitamin D3, 5,000 units tablet Take 1 tablet (5,000 Units total) by mouth in the morning. cranberry 500 mg capsule Take 1 mg by mouth in the morning. estradioL (ESTRACE) 0.01 % (0.1 mg/gram) vaginal cream Insert 2 g into the vagina 2 (two) times a week. loratadine (CLARITIN) 10 mg tablet Take 1 tablet (10 mg total) by mouth daily as needed for allergies. NON FORMULARY Take 1 each by mouth in the morning. Med Name: [employer] vitamin for bladder health. fexofenadine (MARY) 180 mg tablet Take by mouth. No current facility-administered medications for this visit. Chief Complaint Patient presents with Hospital Follow-up IP TTH Dizziness Rare occasions History of Present Illness Damaso Kan is a 79-year-old female with no prior cardiac history Patient was evaluated after a fall, does not endorse any prodromal symptoms or memory of the events. All the she can recalls that she was yelling at her cats. Has never had any chest pain or shortness of breath, this is the 1st syncopal events to her knowledge. Typically avoids drinking water because of bladder irritability. Patient was found to have a subdural hematoma which was treated conservatively. An echocardiogram was obtained that showed a preserved systolic function with an EF of 60-65 with no significant valvular disease in with mild MR and TR. Throughout admission telemetry showed no arrhythmias. A 30 day event monitor was obtained which the patient completed yesterday, throughout her monitoring. She denies any symptoms with no return of syncope or lightheadedness, no palpitations. Monitor did show a 2.2nd pause with a nonconducted P wave, as well as episodes of junctional rhythm with offset into sinus bradycardia with IVCD and PACs. At this visit patient feels well has greater than 4 METs of activities with no chest pain, dyspnea on exertion, lightheadedness or heart palpitations. Is planning on a orthopedic knee replacement soon. Past Medical History: Diagnosis Date Arthritis Kidney mass Visual impairment glasses No data recorded No data recorded No data recorded Past Surgical History: Procedure Laterality Date ARTHROSCOPY MENISCECTOMY KNEE. PARTIAL MEDIAL AND LATERAL. Right 06/14/2021 Performed by Vic Hitchcock DO at [facility] BREAST SURGERY bx, marker in place left side CATARACT EXTRACTION bilateral CHOLECYSTECTOMY COLONOSCOPY ESOPHAGOGASTRODUODENOSCOPY HYSTERECTOMY KNEE SURGERY right PARATHYROID GLAND SURGERY and thyroid nodule removed SPLENECTOMY, TOTAL Family History Problem Relation Age of Onset Cancer Mother Ovarian cancer Mother Kidney cancer Mother Breast cancer Mother Multiple myeloma Father Breast cancer Maternal Aunt Cancer Maternal Aunt Brain cancer Maternal Aunt Brain Tumor Maternal Aunt Breast cancer Niece Breast cancer Niece Social History Socioeconomic History Marital status: Spouse name: Not on file Number of children: Not on file Years of education: Not on file Highest education level: Not on file Occupational History Not on file Tobacco Use Smoking status: Never Smokeless tobacco: Never Vaping Use Vaping status: Never Used Substance and Sexual Activity Alcohol use: Not Currently Comment: very seldom Drug use: Never Sexual activity: Defer Other Topics Concern Caffeine Use Yes Social History Narrative Not on file Social Drivers of Health Financial Resource Strain: Low Risk (08/17/2024) Overall Financial Resource Strain (CARDIA) Difficulty of Paying Living Expenses: Not hard at all Food Insecurity: No Food Insecurity (09/29/2024) Hunger Screening Food Insecurity - Worry: Never True Food Insecurity - Inability: Never True Transportation Needs: No Transportation Needs (08/17/2024) PRAPARE - Transportation Lack of Transportation (Medical): No Lack of Transportation (Non-Medical): No Physical Activity: Not on file Stress: Not on file Social Connections: Not on file Interpersonal Safety: Not At Risk (08/17/2024) Humiliation, Afraid, Rape, and Kick questionnaire Fear of Current or Ex-Partner: No Emotionally Abused: No Physically Abused: No Sexually Abused: No Housing Instability: Low Risk (08/17/2024) Housing Instability Housing Instability: No Review of Systems Review of Systems Constitutional: Negative. HENT: Negative. Eyes: Negative. Respiratory: Negative. Hematologic/Lymphatic: Negative. Skin: Negative. Musculoskeletal: Negative. Gastrointestinal: Negative. Neurological: Positive for headaches and loss of balance. Psychiatric/Behavioral: Negative. Allergic/Immunologic: Positive for environmental allergies. CARDIOVASCULAR: Please review HPI. Physical Examination General appearance: Alert, oriented and cooperative. In no acute distress. Skin: Warm and dry to touch. Head: Normocephalic, without obvious abnormality, atraumatic. Ears, Nose, Mouth, Throat: Throat clear without erythema or exudate. Dentition intact. Eyes: Conjunctivae unremarkable, EOM intact. Neck: No JVD Respiratory: Clear to auscultation bilaterally, no use of accessory muscles. Cardiovascular: RRR with normal S1 and S2 with no murmurs. Gastrointestinal: Soft, non-tender. Bowel sounds normal. Musculoskeletal: No peripheral edema. Neurologic: Oriented to time, person and place, affect appropriate. No focal/major motor defects noted. Psychiatric: Appropriate mood, memory and judgement. VITAL SIGNS: BP 140/90 (BP Site: Left Arm, BP Postition: Sitting) Pulse 82 Ht 170.2 cm (5' 7 ) Wt 87.5 kg (193 lb) SpO2 98% BMI 30.23 kg/m No orders of the defined types were placed in this encounter. There are no discontinued medications. IMPRESSIONS/PLAN 1. Vasovagal syncope Syncope and collapse -felt to be vasovagal/in the setting of dehydration -echocardiogram are unremarkable as well as carotid Dopplers -of what appears to be accelerated junctional rhythm seen on event monitor, however very brief. No prolonged pauses seen. Was completely asymptomatic during the monitoring. Discussed to ensure adequate water intake. Subdural hematoma following with Neurosurgery -resolving right parietal scalp hematoma Preserved EF with no significant valvular disease Patient is stable from a cardiovascular standpoint, would avoid beta-blockers moving forward. Givenno acute findings, will follow up patient conservatively if any continued syncopal events to call the office. Will have her follow up in [address] Summers in the office TODAYS ORDERS No orders of the defined types were placed in this encounter. FOLLOW UP Return in about 1 year (around 09/29/2025). PCP: HARLAN KNOWLES MD Referring Physician: Harlan Knowles MD [address] [place] [id number] Maddie Ramachandran PA-C 09/29/24 1415 documented [facility] Instructions* Patient Instructions* Maddie Ramachandran PA-C - 09/29/2024 1:00 PM EDT Follow up in one year documented in this encounter[facility]25 Miscellaneous Notes* Telephone Encounter - Shelby Miner CMA - 09/28/2024 3:14 PM EDT Left message for patient to remind them to bring their most current medication list with them to their appointment. documented in this encounter[facility]25 Telephone encounter Note* Telephone Encounter - Shelby Miner CMA - 09/28/2024 3:14 PM EDT Left message for patient to remind them to bring their most current medication list with them to their appointment. [facility]02-13-[facility]25 Miscellaneous Notes* Telephone Encounter - Rashida Piña - 08/27/2024 2:16 PM EST Daughter calls to report that the CT brain scan was completed today. She was advised that the provider will review the scan and Lavohn will be called with the results. * Telephone Encounter - Rashida Cardozo Wang - 08/27/2024 2:[address] Brain images were reviewed by Dr. Ellsworth. Orders received per Dr. Ellsworth: Repeat CT brain in 2 weeks, make follow up appointment with provider. , Quentin was called and informed that Dr. Ellsworth would like Damaso to have a repeat CT brain scan done in 2 weeks (09/10/24). He would also like her to follow up with an appointment to review theresults. Quentin was advised to schedule the CT then call our office to schedule an appointment to follow. He verbalized understanding. documented in this [facility]25 Telephone encounter Note* Telephone Encounter - Rashida Mervin Piña - 08/27/2024 2:16 PM EST Daughter calls to report that the CT brain scan was completed today. She was advised that the provider will review the scan and Lavohn will be called with the results. [facility] Telephone encounter Note* Telephone Encounter - Rashida Mervin Piña - 08/27/2024 2:[address] Brain images were reviewed by Dr. Ellsworth. Orders received per Dr. Ellsworth: Repeat CT brain in 2 weeks, make follow up appointment with provider. , Quentin was called and informed that Dr. Ellsworth would like Damaso to have a repeat CT brain scan done in 2 weeks (09/10/24). He would also like her to follow up with an appointment to review theresults. Quentin was advised to schedule the CT then call our office to schedule an appointment to follow. He verbalized understanding. [facility]02-06[facility] Miscellaneous Notes* Telephone Encounter - Maggie Kenney RN - 08/20/2024 8:03 AM EST Images from the original note were not included. * Telephone Encounter - Maggie Kenney RN - 08/20/2024 8:03 AM EST Patient still admitted documented in this encounterMet[facility]25 Telephone encounter Note* Telephone Encounter - Maggie Kenney RN - 08/20/2024 8:03 AM EST Images from the original note were not included. [facility]02-06-[facility] Telephone encounter Note* Telephone Encounter - Maggie Kenney RN - 08/20/2024 8:03 AM EST Patient still admitted [facility]01-02[facility] Evaluation note* Diagnosis Onset Date Resolution Status Admit Date Hydronephrosis, right acute Jul 8:54am Kidney stone acute July 16, 2024 8:54am Renal lesion acute July 16, 2024 8:54am [facility] Work Phone: 1(503) 823-274911-27-2024 Evaluation + Plan note* Assessment & Plan Note - Zaida Child MD - 06/10/2024 5:32 PM ESTAssociated Problem(s): Varicose veins of bilateral lower extremities with pain Venous reflux ultrasound compression stockings leg elevation and exercise. [facility]11[facility]27[facility] Evaluation + Plan note* Assessment & Plan Note - Zaida Child MD - 06/10/2024 5:32 PM ESTAssociated Problem(s): Superficial phlebitis and thrombophlebitis of right lower extremity Warm compresses nonsteroidal anti-inflammatory drugs leg elevation and compression therapy. We willget venous reflux ultrasound and rule out DVT as well. [facility] Miscellaneous Notes* Assessment & Plan Note - Zaida Child MD - 06/10/2024 5:32 PM ESTAssociated Problem(s): Varicose veins of bilateral lower extremities with pain Venous reflux ultrasound compression stockings leg elevation and exercise. * Assessment & Plan Note - Zaida Child MD - 06/10/2024 5:32 PM EST Associated Problem(s): Superficial phlebitis and thrombophlebitis of right lower extremity Warm compresses nonsteroidal anti-inflammatory drugs leg elevation and compression therapy. We willget venous reflux ultrasound and rule out DVT as well. documented in this encounterMet[facility]11-27-2024 History of Present illness Narrative* Zaida Child MD - 06/10/2024 3:30 PM EST Images from the original note were not included. To: HARLAN KNOWLES MD HPI: Damaso Kan is a [...] given by office. Patient was given a [employer] coupon voucher to use, this is not [...] 06/14/2021 Performed by Vic Hitchcock DO at [facility] BRE[facility]GERY bx, marker in place [...] drugs leg elevation and compression therapy. We willget venous reflux ultrasound and rule out DVT as well. Varicose veins of bilateral lower extremities with pain Lavohn was seen today for follow up superficial thrombophlebitis venous duplex lwr s and leg pain. Diagnoses and all orders for this visit: Superficial phlebitis and thrombophlebitis of right lower extremity Varicose veins of bilateral lower extremities with pain Zaida Child MD, TRIPP, RPVI, FSVS, FACS [facility] This note was created with the assistance of a speech recognition program. While intending to generate a timely document that accurately reflects the content of the visit, no guarantee can be provided that every grammatical or spelling mistake has been or will be identified or corrected. Thank you for your understanding. documented in this encounterMet[facility]11-14-2024 Evaluation + Plan note* Assessment & Plan Note - Zaida Child MD - 05/28/2024 11:35 AM EST Associated Problem(s): Varicose veins of bilateral lower extremities with pain Compression stockings leg elevation exercise. Venous reflux ultrasound. [facility] Miscellaneous Notes* Assessment & Plan Note - Zaida Child MD - 05/28/2024 11:35 AM ESTAssociated Problem(s): Varicose veins of bilateral lower extremities with pain Compression stockings leg elevation exercise. Venous reflux ultrasound. * Assessment & Plan Note - Zaida Child MD - 05/28/2024 11:34 AM EST Associated Problem(s): Superficial phlebitis and thrombophlebitis of right lower extremity Nonsteroidal anti-inflammatory drugs warm compresses leg elevation and compression therapy when possible documented in this encounterMet[facility]11-14-2024 Evaluation + Plan note* Assessment & Plan Note - Zaida Child MD - 05/28/2024 11:34 AM EST Associated Problem(s): Superficial phlebitis and thrombophlebitis of right lower extremity Nonsteroidal anti-inflammatory drugs warm compresses leg elevation and compression therapy when possible [facility] History of Present illness Narrative* Zaida Child MD - 05/28/2024 11:10 AM EST Images from the original note were not included. To: HARLAN KNOWLES MD HPI: Damaso Kan is a [...] given by office. Patient was given a [employer] coupon voucher to use, this is not [...] 06/14/2021 Performed by Vic Hitchcock DO at [facility] bx, marker in place [...] [facility] [place] [place] Phlebitis and thrombophlebitis of unspecified site - [facility] [place] [place] Varicose veins of bilateral lower extremities with pain Zaida Child MD, TRIPP, RPVI, FSVS, FACS [facility] This note was created with the assistance of a speech recognition program. While intending to generate a timely document that accurately reflects the content of the visit, no guarantee can be provided that every grammatical or spelling mistake has been or will be identified or corrected. Thank you for your understanding. documented in this encounterMet[facility]10-16-2024 Evaluation note* Diagnosis Onset Date Resolution Status Admit Date Preoperative examination acute April 29, 2024 11:24am Right leg pain acute May 072023 2:12pm Phlebitis acute May 19, 2024 11:09am Right leg pain acute May 192023 11:09am Hydronephrosis, right acute En[place] ua2024 8:54am Kidney stone acute July 16, 2024 8:54am [facility] Work Phone: 1(336) 542-300209-27-2024 NoteProcedure: MRI of the right knee without [...] Signed, Electronically Signed in Other Vendor System)[facility]09-27-2024 NoteProcedure: MRI of the right knee [...] Signed, Electronically Signed in Other Vendor System)[facility]07-03-2024 Evaluation + Plan note Diagnostic Tests Pending * Urine Culture 01/15/24 [facility]07-03-2024 Hospital Discharge instructions Patient Education 01/15/2024 [...] provider. Document Revised: 11/09/2021 Document Reviewed: 11/09/2021 [employer] Patient Education 2022 Followap. Follow Up Care 02/20/2023 12:02:25 With:Gage JACOB, KEKE Carrera, URO Address: [address] [place] [phone] When: Unknown [facility] 07-03-2024 NotePatient Education Obstetrics and Gynecology Kegel [...] provider. Document Revised: 11/09/2021 Document Reviewed: 11/09/2021 [employer] Patient Education ? 2022 Followap.[facility] 07-30-2023 Evaluation note* Encounter Date Diagnosis Assessment Notes Treatment Notes Treatment Clinical Notes Jul, Acute non-recurrent maxillary sinusitis (ICD-10 - J01.00) [facility] 08-09-2023 Hospital Discharge instructions Patient Education 02/20/2023 09:58:29 Urinary Tract Infection, Adult, [id number] Urinary Tract Infection, Adult A urinary tract [...] Follow these instructions at home: Medicines Take wgio-odg-spmmxap and prescription medicines only as told by [...] provider. Document Revised: 02/10/2021 Document Reviewed: 02/10/2021 [employer] Patient Education 2022 Followap. Follow Up Care 08/22/2022 12:56:32 With:Gage JACOB, Katie Arteaga URL, URO Address: When:Within 1 Year(s) [facility] 02-08-2023 Hospital Discharge instructions Patient Education [...] 06/17/2013 Document Revised: 02/18/2019 Document Reviewed: 02/18/2019 [employer] Patient Education 2020 AddMyBest Follow Up Care 06/13/2022 11:42:12 With:Gage JACOB, KEKE Carrera, URO Address: When: Unknown [facility] Hospital Discharge instructions Patient Education 12/05/2021 [...] provider gives to you. In general: Take vgwt-aoe-bvywple and prescription medicines only as told by [...] 01/26/2015 Document Revised: 08/07/2018 Document Reviewed: 08/07/2018 [employer] Patient Education 2020 Followap. Follow Up Care 06/07/2021 13:20:37 With:Shahid Ontiveros MD, Mally Mendiola, URO Address: [facility] [address], [place] [address]- When: Unknown [facility] evaluation + Plan note No data available for this section [facility] evaluation + Plan note Future Appointments Appointment Date:02/20/2023 10:45:00 AM Scheduled Provider:Katie Almonte MD Location:[facility] Appointment Type:URO Office Visit [facility] evaluation + Plan note Future Appointments Appointment Date:02/26/2024 10:45:00 AM Scheduled Provider:Katie Almonte MD Location:[facility] Appointment Type:URO Office Visit [facility] evaluation noteNo [employer] Other evaluation note* Diagnosis Onset Date Resolution Status Menopausal and postmenopausal disorder acute Screening mammogram for breast cancer acute [facility] Work Phone: evaluation noteNo assessment information available [facility] Work Phone: evaluation note* Diagnosis Onset Date Resolution Status Preoperative examination acu te Right leg pain acute [facility] Work Phone: evaluation note* Diagnosis Onset Date Resolution Status Preoperative examination acu te Right leg pain acute Phlebitis acute Right leg pain acute [facility] Work Phone: evaluation note* Diagnosis Superficial phlebitis and thrombophlebitis of right lower extremity- Primary Right leg pain Pain in soft tissues of limb Phlebitis and thrombophlebitis of unspecified site Varicose veins of bilateral lower extremities with pain Superficial phlebitis and thrombophlebitis of right lower extremity- Primary Varicose veins of bilateral lower extremities with pain Subdural hemorrhage (CMS-HCC)- Primary Subdural hemorrhage [facility] Diagnosis Superficial phlebitis and thrombophlebitis of right lower extremity- Primary Right leg pain Pain in soft tissues of limb Phlebitis and thrombophlebitis of unspecified site Varicose veins of bilateral lower extremities with pain [facility] Diagnosis Superficial phlebitis and thrombophlebitis of right lower extremity- Primary Right leg pain Pain in soft tissues of limb Phlebitis and thrombophlebitis of unspecified site Varicose veins of bilateral lower extremities with pain Superficial phlebitis and thrombophlebitis of right lower extremity- Primary Varicose veins of bilateral lower extremities with pain [facility] Diagnosis Superficial phlebitis and thrombophlebitis of right lower extremity- Primary Right leg pain Pain in soft tissues of limb Phlebitis and thrombophlebitis of unspecified site Varicose veins of bilateral lower extremities with pain Superficial phlebitis and thrombophlebitis of right lower extremity- Primary Varicose veins of bilateral lower extremities with pain Vasovagal syncope- Primary Syncope and collapse [facility] Diagnosis Superficial phlebitis and thrombophlebitis of right lower extremity- Primary Right leg pain Pain in soft tissues of limb Phlebitis and thrombophlebitis of unspecified site Varicose veins of bilateral lower extremities with pain Superficial phlebitis and thrombophlebitis of right lower extremity- Primary Varicose veins of bilateral lower extremities with pain Subdural hemorrhage (CMS-HCC)- Primary Subdural hemorrhage [facility] Diagnosis Osteoarthritis of right knee, unspecified osteoarthritis type documented in this encounter [facility] general Narrative - Reported* Type Description Date [...] ABOVE SURGERY Hospitalization History CHILD X'S 2 [facility] Other Hospital Discharge instructions No data available for this section [facility]* Referral to Vascular Surgery Time Frame: 05/19/24, Location: None [facility] Work Phone: InstructionsNot on filedocumented in [...] on filedocumented in this encounter [facility] No data available for this section [facility] reason for referral (narrative)No reason for referral information availableW[facility] Work Phone: Summary Purpose Family History No Family History Records Found Relationship Condition Age at Onset Recorded Date/T radha father Unknown mother Unknown Advance Directives No Advanced Directives Records Found Advance Directive Response Recorded Date/ Time Advance Directives No January 23 10:46am Advance Directive Response Recorded Date/ Time Advance Directives No January 23 9:46am Date Activated Date Inactivated Comments 08/17/2024 5:30 PM Date Activated Date Inactivated Comments 08/17/2024 5:30 PM 08/20/2024 2:19 PM Date Activated Date Inactivated Comments 08/17/2024 5:30 PM 08/20/2024 2:19 PM Chief Complaint and Reason for Visit Chief [...] for Visit Admit Date Preoperative examination April 29 11:24am Right leg pain May 07, 2024 2 :12pm Phlebitis May 19, 2024 1 1:09am Right leg pain May 19, 2024 1 1:09am Hydronephrosis, right July 16, 2024 8:54am Kidney stone July 16, 2024 8: 54am Chief Complaint Admit Date Unknown July 08, 2024 10:17am Amb Documentation July 09, 2024 10:30am [facility], kidney stone July 16, 2024 8: 54am Amb Documentation August 21, 2024 1 1:06am IP subdural hemorrhage September 02 10:54am Reason for Visit Admit Date Hydronephrosis, right July 16, 2024 8:54am Kidney stone July 16, 2024 8: 54am Renal lesion July 16, 2024 8: 54am Chief Complaint Admit Date discuss surgery December 17, 2024 1:00p m Chief Complaint Admit Date discuss surgery December 17, 2024 1:00p m Wellness January 27, 2025 10:2 0am Reason for Visit Admit Date Osteoarthritis of right knee December 17 025 1:00pm Subdural hemorrhage December 17, 2024 1:00p m Screening mammogram for breast cancer 2024 10:20am Chief Complaint Admit Date discuss surgery December 17, 2024 1:00p m Wellness January 27, 2025 10:2 0am surgical clearance, Dr Conor cortes February 17, 2025 8:51am Reason for Visit Admit Date Osteoarthritis of right knee December 17 025 1:00pm Subdural hemorrhage December 17, 2024 1:00p m Medicare annual wellness visit, subseque nt January 27, 2025 10:20am Osteoarthritis of right knee January 27, 2025 10:20am Recurrent UTI (urinary tract infection) January 27, 2025 10:20am Screening mammogram for breast cancer Ju ly 2024 10:20am Subdural hemorrhage January 27, 2025 10:2 0am Chief Complaint Admit Date discuss surgery December 17, 2024 1:00p m Wellness January 27, 2025 10:2 0am surgical clearance, Dr Conor cortes February 17, 2025 8:51am Sinus congestion, poss infected tooth Au bimal 2024 1:12pm Reason for Visit Admit Date Osteoarthritis of right knee December 17 1:00pm Subdural hemorrhage December 17, 2024 1:00p m Medicare annual wellness visit, subseque nt January 27, 2025 10:20am Osteoarthritis of right knee January 27, 2025 10:20am Recurrent UTI (urinary tract infection) January 27, 2025 10:20am Screening mammogram for breast cancer ly 2024 10:20am Subdural hemorrhage January 27, 2025 10:2 0am Osteoarthritis of right knee February 17, 2025 8:51am Preoperative clearance February 17, 2025 8:51am Recurrent UTI (urinary tract infection) February 17, 2025 8:51am Additional Source Comments INFORMATION SOURCE (unrecogn ized section and content) DATE CREATED AUTHOR 08/02/2022 [facility] DATE CREATED AUTHOR AUTHOR'S ORGANIZ ATION 01/16/2024 [facility] DATE CREATED AUTHOR AUTHOR'S ORGANIZ ATION 01/19/2024 [facility] DATE CREATED AUTHOR AUTHOR'S ORGANIZ ATION 07/12/2024 [facility] DATE CREATED AUTHOR AUTHOR'S ORGANIZ ATION 10/07/[address] [facility] DATE CREATED AUTHOR AUTHOR'S ORGANIZ ATION 10/09/2024 [facility] DATE CREATED AUTHOR AUTHOR'S ORGANIZ ATION 10/16/2024 [facility] DATE CREATED AUTHOR AUTHOR'S ORGANIZ ATION 01/22/2025 [facility] DATE CREATED AUTHOR AUTHOR'S ORGANIZ ATION 02/01/2025 [facility] DATE CREATED AUTHOR AUTHOR'S ORGANIZ ATION 03/13/2025 [facility] Patient Care team informatio n (unrecognized section and content) Team Status: Active Member Role Status Dates Harlan Knowles MD Primary Care Provider Active Team Status: Inactive Member Role Status Dates Harlan Knowles MD Primary Care Provide r, Attending Provider Active Start: January 24, 2024 End: January 24, 2024 Team Status: Inactive Member Role Status Dates Harlan Knowles MD Primary Care Provide r, Attending Provider Active Start: April 29, 2024 End: April 29, 2024 Team Status: Active Member Role Status Dates Harlan Knowles MD Primary Care Provider Active Start: May 01, 2024 Johny Perdomo DO Attending Provider Active S tart: May 01, 2024 Team Status: Active Member Role Status Dates Harlan Knowles MD Primary Care Provider Active Start: 2024 Jenniffer Luna CMA Attending Provider Active Start: 2024 Team Status: Inactive Member Role Status Dates Harlan Knowles MD Primary Care Provide r, Attending Provider Active Start: May 07, 2024 End: May 07, 2024 Team Status: Active Member Role Status Dates Harlan Knowles MD Primary Care Provide r, Attending Provider Active Start: May 07, 2024 Team Status: Inactive Member Role Status Dates Harlan Knowles MD Primary Care Provide r, Attending Provider Active Start: May 19, 2024 End: May 19, 2024 Team Status: Active Member Role Status Dates Harlan Knowles MD Primary Care Provider Active Start: May 03, 2024 Lucas Robert DO Attending Provider Active Sta rt: May 03, 2024 Team Status: Inactive Member Role Status Dates Maryan Mcwilliams MD Attending Provider Active Sta rt: July 08, 2024 End: July 08, 2024 Team Status: Active Member Role Status Dates Harlan Knowles MD Primary Care Provider Active Start: July 09, 2024 Jenniffer Luna CMA Attending Provider Active Start: July 09, 2024 Team Status: Inactive Member Role Status Dates Harlan Knowles MD Primary Care Provide r, Attending Provider Active Start: July 16, 2024 End: July 16, 2024 [employer] 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 Start Date End Date Harlan Knowles MD [address] [place] [address] PCP - General Family Medicine 06/01/21 [employer] 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 [place] [address] [place] [id number] PCP - General Family Medicine 06/01/21 [employer] 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 Start [place] [address] [place] [id number] PCP - General Family Medicine 06/01/21 [employer] 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 Start [place] [address] [place] [id number] PCP - General Family Medicine 06/01/21 [employer] 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 Start [place] [address] [place] [id number] PCP - General Family Medicine 06/01/21 [employer] 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 Start [place] [address] [place] [id number] PCP - General Family Medicine 06/01/21 Team Status: Active Member Role Status Dates Harlan Knowles MD Primary Care Provider Active Start: July 08, 2024 Lucas Robert DO Attending Provider Active Sta rt: July 08, 2024 Team Status: Active Member Role Status Dates Harlan Knowles MD Primary Care Provider Active Start: August 17, 2024 Hola Sorensen DO Attending Provider Active S tart: August 17, 2024 Team Status: Active Member Role Status Dates Harlan Knowles MD Primary Care Provider Active Start: August 21, 2024 Jenniffer Luna CMA Attending Provider Active Start: August 21, 2024 Team Status: Inactive Member Role Status Dates Harlan Knowles MD Primary Care Provide r, Attending Provider Active Start: September 02, 2024 End: September 02, 2024 Lawn Sprinkler Servicer 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 Start Date End Date Harlan Knowles MD [address] [place] [phone] PCP - General Family Medicine 06/01/21 Lawn Sprinkler Servicer 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 Start Date End Date Harlan Knowles MD [address] [place] [phone] PCP - General Family Medicine 06/01/21 Lawn Sprinkler Servicer 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 Start Date End Date Harlan Knowles MD [address] [place] [address] [phone] PCP - General Family Medicine 06/01/21 Team Status: Inactive Member Role Status Dates Harlan Knowles MD Primary Care Provide r, Attending Provider Active Start: December 17, 2024 End: December 17, 2024 Lawn Sprinkler Servicer 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 Start Date End Date Harlan Knowles MD [address] [place] [phone] PCP - General Family Medicine 06/01/21 Lawn Sprinkler Servicer 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 Start Date End Date Harlan Knowles MD [address] [place] [phone] PCP - General Family Medicine 01/18/25 Team Status: Inactive Member Role Status Dates Harlan Knowles MD Primary Care Provider Active Start: December 17, 2024 End: December 17, 2024 Harlan Knowles MD Attending Provider Active St art: December 17, 2024 End: December 17, 2024 Team Status: Inactive Member Role Status Dates Harlan Knowles MD Primary Care Provider Active Start: January 27, 2025 End: January 27, 2025 Harlan Knowles MD Attending Provider Active St art: January 27, 2025 End: January 27, 2025 Team Status: Active Member Role Status Dates Harlan Knowles MD Primary Care Provider Active Start: February 10, 2025 Johny Perdomo DO Attending Provider Active S tart: February 10, 2025 Team Status: Inactive Member Role Status Dates Harlan Knowles MD Primary Care Provider Active Start: February 17, 2025 End: February 17, 2025 Harlan Knowles MD Attending Provider Active St art: February 17, 2025 End: February 17, 2025 Team Status: Inactive Member Role Status Dates Harlan Knowles MD Primary Care Provider Active Start: February 22, 2025 End: February 22, 2025 FRANKIE Adame RN BRUSHING MACHINE OPERATOR-C Attending Provider Active Start: February 22, 2025 End: February 22, 2025 Lawn Sprinkler Servicer 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 Start Date End Date Harlan Knowles MD [address] [place] [address] PCP - General Family Medicine 06/01/21 REASON FOR VISIT (unrecogniz ed section and content) Reason Comments Med Refill Reason Onset Date Comments needs event monitor ordered 08/20/2024 Reason Comments new patient - right leg pain after cellu litis Specialty Diagnoses / Procedures Referred By Mara gamez Referred To Contact Vascular Surgery Diagnoses Right leg pain Phlebitis and thrombophlebitis of unspecified site Harlan Knowles MD [address] [place] [address] Phone: tel: fax: [facility] [address] [place] [address] Phone: tel:[phone] fax: Referral ID Status Reason Start Date Expiration Date Visits Requested Visits Authorized [id number] Pending Review Specialty Services Required 05/20/2024 05/20/2025 1 1 Reason Comments follow up superficial thromb ophlebitis venous duplex lwr s Leg Pain Sharp pain 7/10 when raising legs or stands up Reason Comments Hospital Follow-up IP TTH Dizziness Rare occasions Reason Comments Follow-up Ep review brain ct r esults Reason Onset Date Comments Results 10/27/2024 Reason Onset Date Comments clearance 02/25/2025 Goals (unrecognized section and content) Goals may [...] BE BASED ON THE PRIMARY CLINICAL RECORDS. [facility]. provides no warranty or guarantee of the accuracy or completeness of information in this document.
[2025-03-31 16:15] LABS: Hematocrit 37.2 % (36.0-48.0); Hemoglobin 12.1 g/dL (12.0-16.0); Immature Granulocytes Abs Auto 0.00 10^3/uL (0.00-0.03); Immature Granulocytes Pct Auto 0.0 % (0.0-0.5); Lymphocytes Absolute Auto 2.9 10^3/uL (1.2-3.8); Mean Corpuscular HGB Conc 32.5 g/dL (29.9-35.2); Mean Corpuscular Hemoglobin 34.4 pg (26.7-34.0); Mean Corpuscular Volume 105.7 fL (81.0-99.0); Platelet Count 384 10^3/uL (150-450); Red Blood Count 3.52 10^6/uL (4.20-5.40); White Blood Count 5.3 10^3/uL (4.0-11.0)
== END 2025-03-31 16:58 | disposition home or self-care (01) ==
PROVIDERS: Physician Assistant; Emergency Provider Emergency Medicine; PCP Family Medicine
DX: M96.89 Other intraoperative and postprocedural complications and disorders of the musculoskeletal system (principal); R21 Rash and other nonspecific skin eruption; Z96.651 Presence of right artificial knee joint
CPT/HCPCS: 36415; 85025; 85652; 86140; 99283

== ENCOUNTER 2025-05-13 12:55 | Outpatient (OUT) | payer MEDICARE, OTHER, SELFPAY ==
--- OUTSIDE RECORDS SUMMARY | 2025-05-03 11:25 | XMS_ITS | Encounter Summary ---
Author Organization [facility] Address [address], [address] [place] [address] Care Team Providers Care Stogie Packer Name Role Phone Hafsa Browning MD Primary Care Provider Encounter Details DateTypeDepartmentCare Team (Latest Contact Info)Dbhgleaydks99/20/2025 11:25 AM EDT - 05/05/2025 11:59 PM EDTHospital Encounter [facility] [address] [place] [address] Discharge Disposition: Home or Self Care Social History Tobacco UseTypesPacks/DayYears UsedDateSmoking Tobacco: Never Assessed CommentsUnknownSex and Gender InformationValueDate RecordedSex Assigned at Not on fileLegal OyeOsyyue35/07/2025 2:06 PM EDTGender IdentityNot on fileSexual OrientationNot on filedocumented as of this encounter Plan of Treatment Not on file documented as of this encounter Visit Diagnoses Not on filedocumented in this encounter Care Teams Team MemberRelationshipSpecialtyStart DateEnd Date Hafsa Browning MD [address] [place] [phone] PCP - GeneralFamily Medicine01/18/25documented as of this encounter
--- OUTSIDE RECORDS SUMMARY | 2025-05-03 13:22 | XMS_ITS | Encounter Summary ---
Author Organization [facility] Address [address], [address] [place] [address] Care Team Providers Care Car Oiler Name Role Phone Hafsa Browning MD Primary Care Provider [phone] Encounter Details DateTypeDepartmentCare Team (Latest Contact Info)Miasbrantzk51/20/2025 1:22 PM EDT - 05/05/2025 11:59 PM EDTHospital Encounter [facility] Radiology [address] [place] [address] History of total knee replacement, right; Aftercare following right shoulder joint replacement surgery Discharge Disposition: Home or Self Care Social History Tobacco UseTypesPacks/DayYears UsedDateSmoking Tobacco: Never Assessed CommentsUnknownSex and Gender InformationValueDate RecordedSex Assigned at Not on fileLegal FkwVjmcti70/07/2025 2:06 PM EDTGender IdentityNot on fileSexual OrientationNot on filedocumented as of this encounter Plan of Treatment Not on file documented as of this encounter Procedures Procedure NamePriorityDate/TimeAssociated DiagnosisCommentsXR KNEE RIGHT (3 VIEWS)Ogyaffb7305/03/2025 1:44 PM EDT History of total knee replacement, right Aftercare following right shoulder joint replacement surgery documented in this encounter Results * XR KNEE RIGHT (3 VIEWS) (05/03/2025 1:44 PM EDT)Anatomical RegionLaterality ModalityThigh, Knee, LegComputed RadiographySpecimen (Source)Anatomical Location / LateralityCollection Method / VolumeCollection TimeReceived Time 05/03/2025 1:44 PM EDT Impressions 05/03/2025 7:05 PM EDT FINDINGS/IMPRESSION: Right total knee prosthesis with a patellar button in anatomic alignment without radiographic complication. Kellgren-Jose Armando grade 2 osteoarthritic change left knee. Narrative 05/03/2025 7:05 PM EDT EXAM: XR KNEE RIGHT (3 VIEWS) HISTORY: History of total knee replacement, right. COMPARISON: Right knee [place] 03/04/2025. Procedure Note Isaac King Jr., MD - 05/03/2025 EXAM: XR KNEE RIGHT (3 VIEWS) HISTORY: History of total knee replacement, right. COMPARISON: Right knee [place] 03/04/2025. IMPRESSION: FINDINGS/IMPRESSION: Right total knee prosthesis with a patellar button in anatomic alignment without radiographic complication. Kellgren-Jose Armando grade 2 osteoarthritic change left knee. Authorizing ProviderResult TypeResult StatusDytae Perdomo [facility] DIAGNOSTIC IMAGING ORDERABLESFinal Result documented in this encounter Visit Diagnoses Diagnosis History of total knee replacement, right Aftercare following right shoulder joint replacement surgery documented in this encounter Care Teams Team MemberRelationshipSpecialtyStart DateEnd Date Hafsa Browning MD [address] [place] [phone] PCP - GeneralFamily Medicine01/18/25documented as of this encounter
--- OUTSIDE RECORDS SUMMARY | 2025-05-13 08:24 | XMS_ITS | Continuity of Care Document ---
Author Organization [facility] Address [address] [place] [address] Phone Care Team Providers Care Nurse Assistant Name Role Phone Hafsa Browning MD Primary Care Provider Hafsa Browning MD Attending Provider Shannan Polanco APRN Attending Provider Odilia Driscoll PA-C Attending Provider Care Teams Patient Care Team Team Status: Active Member Role/Relationship Status Dates Hafsa Browning MD Primary Care Provider Active Visit Care Team Team Status: Inactive Member Role/Relationship Status Dates Hafsa Browning MD Primary Care Provider Active Start: February 17, 2025 End: February 17, 2025Renetta Pimentel ProviderActiveStart: February 17, 2025 End: February 17, 2025 Visit Care Team Team Status: Inactive Member Role/Relationship Status Dates Hafsa Browning MD Primary Care Provider Active Start: February 22, 2025 End: February 22, 2025Shannan Polanco APRN UI ENGINEER-CAttending Provider ActiveStart: February 22, 2025 End: February 22, 2025 Visit Care Team Team Status: Active Member Role/Relationship Status Dates Hafsa Browning MD Primary Care Provider Active Start: March 31, 2025 Alaina Villanueva ProviderActiveStart: March 31, 2025 Visit Care Team Team Status: Inactive Member Role/Relationship Status Dates Hafsa Browning MD Primary Care Provider Active Start: April 08, 2025 End: April 08, 2025Renetta Pimentel ProviderActiveStart: April 08, 2025 End: April 08, 2025 Visit Care Team Team Status: Inactive Member Role/Relationship Status Dates Hafsa Browning MD Primary Care Provider Active Start: April 08, 2025 End: April 08, 2025Renetta Pimentel ProviderActiveStart: April 08, 2025 End: April 08, 2025 Patient Care Team Team Status: Inactive Member Role/Relationship Status Dates Hafsa Browning MD Primary Care Provider Active Start: May 13, 2025 End: May 13, 2025Renetta Pimentel ProviderActiveStart: May 13, 2025 End: May 13, 2025 Chief Complaint and Reason for Visit Chief Complaint Admit Date surgical clearance, Dr Conor cortes February 17, 2025 8:51am Sinus congestion, poss infected tooth Au bimal 2024 1:12pm R Knee/PT f/u April 08, 2025 11:41am L03.115 April 08, 2025 12:13pm Rt Knee Possibly Filled w Fluid May 13, 2025 11:38am Reason for Visit Admit Date Osteoarthritis of right knee February 17, 2025 8:51am Preoperative clearance February 17, 2025 8:51am Recurrent UTI (urinary tract infection) February 17, 2025 8:51am Viral URI February 22, 2025 1: 12pm Cellulitis of knee, right March 11:41am Edema of right lower extremity April 162024 11:38am Allergies, Adverse Reactions, Alerts Allergen Type Severity Reaction Last Updated Verified Status acetaminophen Allergy Unknown Hives April 11:44am Yes Active hydrocodone Allergy Unknown Hives May 13, 2025 11:44am Yes Active codeine Adverse Reaction Mild Nausea May 13, 2025 11:44am Yes Active Social History Smoking Status Status Start Date End Date Date of Observa tion Never smoked tobacco (finding) July 23, 2023 10:11am Observation Status Observation Response Date of Response Legal Sex Female (finding) [facility] 1944 Family History Relationship Condition Age at Onset Recorded Date/T radha father Unknown motherDeceasedUnknown Problems Active Problems Problem Diagnosis/Recorded Date Onset Date Stat us Edema of right lower extremity May 13, 2025 12:0 6pm Unknown Active Medicare annual wellness vis it, subsequent February 05, 2024 3:16pm Unknown Active Screening mammogram for breast cancer January 24, 2024 11:36am Unknown Active Menopausal and postmenopausal disorder January 24, 2024 11:37am Unknown Active Preoperative clearance February 17, 2025 2:06pm Unknown Active Kidney stone July 16, 2024 10:05am Unknown Ac tive Right leg pain May 07, 2024 2:58pm Unknown Active Recurrent UTI (urinary tract infection) January 27, 2025 2:40pm Unknown Active Subdural hemorrhage September 02, 2024 12:22pm Unknow n Active Preoperative examination May 01, 2024 10:09am Un known Active Renal lesion July 16, 2024 1:39pm Unknown Act karime Osteoarthritis of right knee December 18, 2024 2:25pm Unk nown Active Viral URI February 22, 2025 2:07pm Unknown Act karime Hydronephrosis, right July 16, 2024 10:41am Unknow n Active Cellulitis of knee, right April 08, 2025 12:15pm Unknown Active Inactive/Resolved Problems Problem Diagnosis/Recorded Date Onset Date Stat us Phlebitis May 19, 2024 12:47pm Unknown R esolved Medications Medication Status Dose Units Route Directions Qty Days Refills S tart Date Stop Date End Date Reason(s) Instructions Adherence Nitrofurantoin Macrocrystal 50 mg capsule Discontinued 0 .ROUTE.LEEJART215Latwxovym 2023 8:39amNovember 2023 11:53amTAKE 1 CAPSULE BY MOUTH ONCE DAILY * TAKE WITH FOOD or a meal*Cephalexin 500 mg capsule Rcboowzqdnbf850CTWOQoilr times aspzp3166Zdfadmo 2023 12:00amOctober 2023 3:53pmNitrofurantoin Macrocrystal 50 mg capsuleDiscontinued0.ROUTE.COMPLEX 301Nov2023 11:53amJanuary 2024 10:03amTAKE 1 CAPSULE BY MOUTH ONCE DAILY * TAKE WITH FOOD or a meal*Cholecalciferol (Vitamin D3) 25 mcg (1,000 unit) ldzhcrvEhlxht74AOYSACmtziCtmp 2023 12:00amComplies with drug therapy Biotin 5 mg pcaomwvZcnxgd0QQBWBaekbWaox 2023 12:00amComplies with drug therapyOmeprazole 40 mg capsule,delayed release(DR/EC)Lgdfuhimbcfu52XLXDXwyme Grace 2023 12:00amJuly 2023 11:02amFexofenadine (Mary Allergy) 60 mg znlbstRavdstacfovx05UJRFIslwd dailyJuly 2023 12:00amFebruary 2024 12:18pmEstradiol (Estrace) 0.01 % (0.1 mg/gram) rdcjmVhcaykjphnux4KLJBYJERQH VAGINALDailyJuly 2023 12:00amJune 2024 1:05pmfor 14 days Nitrofurantoin Macrocrystal 100 mg uglfgjrDrezjopobfbl910AJIYEcuhe dailyJuly 2023 12:00amJuly 2023 11:35ammust administer with a meal/food Nitrofurantoin Macrocrystal 50 mg tuffxlkBxeblorumptt66UACJPczwn054Xpwu 2023 11:34amSeptember 2023 8:39ammust administer with a meal/foodEstradiol (Estrace) 0.01 % (0.1 mg/gram) zfmnuLnirxq1VVNVLXZGPKWFHMJNFdhifw weekDecember 17, 2024 1:04pmfor 14 daysComplies with drug therapyCephalexin 500 mg capsule Iciwxqbzrbow898LTQHHyogj times dailyOctober 2023 12:00amOctober 2023 3:53pmNaproxen 500 mg tsuafyZfvvdchiiwjf628GREJJtjel myhas918Lfbbhfu 2023 12:00amFebruary 2024 12:19pmSulfamethoxazole-Trimethoprim 800-160 mg ujiwbnEzmbbotdplap1BXADHJjipy vgrxa271Ltmfwdm 2023 12:00amJanuary 2024 10:03amPrednisone 20 mg txwdmlSxoatsssgzle96GXBFTrmvl nlsuf726Xlmimcee 2023 1:00amJanuary 2024 10:03amLoratadine (Claritin) 10 mg murpajWdzjjo19PF PODailyFebruary 2024 1:00amComplies with drug therapyNitrofurantoin Macrocrystal 50 mg capsuleDiscontinued0.ROUTE.AODUZNP849Pkju 2024 10:52am May 13, 2025 12:02pmTAKE 1 CAPSULE BY MOUTH ONCE DAILY * TAKE WITH FOOD or a meal*Aspirin 81 mg tytahdDfxmvs76FXFLMojci dailySe2024 12:00am Complies with drug therapyCefdinir 300 mg omajsvlQqsrvhnmzdzr512CAGQMoqsv daily April 08, 2025 12:00amOctober 2024 12:01pmSulfamethoxazole- Trimethoprim 800-160 mg wmyhxtRenhfccigjdp8ZZPFCXfzzu illqs005ArnaleezxApril 08, 2025 12:00amOctober 2024 12:02pmNitrofurantoin Macrocrystal 50 mg capsule Active0.ROUTE.IFTXAJO731Rryhbez 30th, 2025 12:02pmTAKE 1 CAPSULE BY MOUTH ONCE DAILY * TAKE WITH FOOD or a meal*Complies with drug therapySpironolactone 50 mg tgyenaYvgyjp92SZSCMddru shqjgpc286Oaxfmnh2024 12:00amComplies with drug therapy Immunizations Immunization Event Date Not Given Reason Dose Number Student Teaching Coordinator Lot Number Reason(s) Given Vaccine Information Statement (VIS) Detail Administration Location influenza, unspecified formulation May 16, 2020 Pneumococcal Conjugate Vaccine, 13 valentApril 2017Pneumococcal Polysacc. Vaccine, 23 valentJune 2018 Procedures Procedure Date Performed Status Aerobic Culture April 08, 2025 completed Anaerobic Culture April 08, 2025 completed Gram Stain April 08, 2025 completed Relevant Diagnostic Tests and/or Laboratory Data Laboratory Results Test Collection Date/Time Result Date/Time Result Interpretation Reference Range Result Comment Performing Site C-Reactive Protein, Quantitative March 31, 2025 4:10pm March 31, 2025 4:10pm 1.02 mg/dL Above high normal <=0.50 Erythrocyte Sedimentation RateSept2024 4:10pmSept2024 4:10pm44 mm/hrAbove high normal<=30Basophils # (Auto)March 31, 2025 4:10pm March 31, 2025 4:10pm0.1 10 3/uL0.0-0.1Basophils (%) (Auto)March 31, 2025 4:10pmSept2024 4:10pm0.9 %0.2-2.0Eosinophils # (Auto)March 31, 2025 4:10pmSept2024 4:10pm0.2 10 3/uL0.0-0.7Eosinophils (%) (Auto)March 31, 2025 4:10pmSept2024 4:10pm3.6 %0.9-7.0 HematocritSept2024 4:10pmSept2024 4:10pm37.2 %36.0-48.0 HemoglobinSept2024 4:10pmSept2024 4:10pm12.1 g/dL 12.0-16.0Immature Granulocyte # (Auto)March 31, 2025 4:10pmSept2024 4:10pm0.00 10 3/uL0.00-0.03Immature Granulocyte % (Auto)March 31, 2025 4:10pmSept2024 4:10pm0.0 %0.0-0.5Lymphocytes # (Auto)March 31, 2025 4:10pmSept2024 4:10pm2.9 10 3/uL1.2-3.8Lymphocytes (%) (Auto)March 31, 2025 4:10pmSept2024 4:10pm55.7 %20.5-60.0Mean Corpuscular HemoglobinSept2024 4:10pmSept2024 4:10pm34.4 pgAbove high lojush86.7-34.0Mean Corpuscular Hemoglobin ConcentSept2024 4:10pmSept2024 4:10pm32.5 g/dL29.9-35.2Mean Corpuscular Volume March 31, 2025 4:10pmSept2024 4:45bn303.7 fLAbove high normal 81.0-99.0Monocytes # (Auto)March 31, 2025 4:10pmSept2024 4:10pm0.7 10 3/uL0.3-0.8Monocytes (%) (Auto)March 31, 2025 4:10pmSept2024 4:10pm13.4 %Above high normal1.7-12.0Mean Platelet VolumeSept2024 4:10pmSept2024 4:10pm11.9 fL9.5-13.5Neutrophils # (Auto) March 31, 2025 4:10pmSept2024 4:10pm1.4 10 3/uL1.4-6.5 Neutrophils (%) (Auto)March 31, 2025 4:10pmSept2024 4:10pm26.4 %Below low zinhew81.0-75.0Platelet CountSept2024 4:10pmSept2024 4:65yq901 10 3/cT170-039Szo Blood CountSeptember 2024 4:10pm March 31, 2025 4:10pm3.52 10 6/uLBelow low normal4.20-5.40Red Cell Distribution WidthSept2024 4:10pmSept2024 4:10pm14.2 % 11.0-15.0Corrected White Blood CountSept2024 4:10pmSept2024 4:10pm5.3 10 3/uL4.0-11.0 Microbiology Results Procedure Source Result Collection Date/Time Result Date/Time Result Comment Performing Site Aerobic Culture Knee,Right, Cellulitis Pseudomonas alcaligenes April 08, 2025 12:13pm April 26, 2025 10:33am [facility] [id number] [address] [facility] [address]Pdyr,Right, CellulitisAcinetobacter lwoffiiSept2024 12:13pmOct2024 10:33am[facility] [id number] [address] [facility] [address]Jjly,Right, CellulitisAcinetobacter speciesSeptember 2024 12:13pmOct2024 10:33am[facility] [id number] [address] [facility] [address]Ewxa,Right, CellulitisGram Positive BacilliSept2024 12:13pmOctober 2024 10:33am[facility] [id number] [address] [facility] [address]Uflhmxbrl CultureKnee,Right, CellulitisNo Anaerobes Isolated 3 DaysSept2024 12:13pmSeptember 2024 10:43am[facility] [id number] [address] [facility] [address]Sowf StainKnee,Right, CellulitisSeptember 2024 12:13pm April 10, 2025 2:[facility]pm[facility] [id number] [address] [facility] [address] Vital Signs Vital Reading Result Reference Range Collection Date/Time Height 65 [in_i] February 17, 2025 8:94fkUawknj92.04 kgAugust 2024 8:55amHeart Rate71 /min 60-100August 2024 8:55amBP Zatzufkj544 mm[Hg]100-140August 2024 8:55am BP Csydhhskp52 mm[Hg]60-100August 2024 8:55amBMI (Body Mass Index)31.1 kg/i3Gpqrzy 2024 8:80gqKzrkdr10 [in_i]February 22, 2025 1:73kmEtvsrc60.72 kgAugust 2024 1:17pmBody Xofywwqdmqo21.9 [degF]97.6-99.0August 2024 1:17pmHeart Rate76 /hkd54-581Cbrebw 2024 1:17pmRespiratory rate14 /min 12-24August 2024 1:17pmOxygen saturation by Pulse ifsjucor70 %95-100August 2024 1:17pmBP Gnvzrqrf130 mm[Hg]100-140August 2024 1:17pmBP Unujfnrcv88 mm[Hg]60-100August 2024 1:17pmBMI (Body Mass Index)31.4 kg/m2 February 22, 2025 1:58ydLxyjjh03 [in_i]April 08, 2025 11:95kmZuhkho04.51 kgSeptember 2024 11:44amBody Vxuoifjwxne57.5 [degF]97.6-99.0September 2024 11:44amHeart Rate72 /zwt99-699Vxcbytepf 2024 11:44amBP Systolic 137 mm[Hg]100-140September 2024 11:44amBP Esllropmc28 mm[Hg]60-100 April 08, 2025 11:44amBMI (Body Mass Index)29.5 kg/b4Iwptwgrnf 2024 11:49izZwbxat93 [in_i]May 13, 2025 11:15fnTzgfsi32.36 kgOctober 2024 11:43amBody Ewlngttlfhi65.3 [degF]97.6-99.0October 2024 11:43amHeart Rate 71 /prh97-615Nuijcuf 2024 11:43amBP Pvqlfeky306 mm[Hg]100-140October 2024 11:43amBP Ipldzhteh53 mm[Hg]60-100October 2024 11:43amBMI (Body Mass Index)30.9 kg/o0Guzjczy 2024 11:43am Advance Directives Advance Directive Response Recorded Date/ Time Advance Directives No January 23 10:46am Insurance Providers Guarantor Damaso Kan Address [address] [place] [phone] Info.Home Phone: Payer Group Member ID Coverage Type Subscriber Relationship to Subscriber Effective Date Expiration Date MMO Id: [id number] R Hunter Id: [id number] [address] [place] [phone] Home Phone: Email: [facility]CLINED [facility] [id number] R Hunter Id: [id number] [address] [address] Home Phone: Email: DECLINED 2016Self Encounters Encounter Location(s) Arrival/Admit Date Discharge/Departure Date Discharge/Departure Disposition Provider(s) Departed Physician/ Provider Office Visit -[facility] February 17, 2025 8:51am February 17, 2025 9:16am Discharged to home care or self care (routine discharge) Hafsa Browning MD Departed Physician/ Provider Office Visit -[facility] February 22, 2025 1:12pm February 22, 2025 1:39pm Discharged to home care or self care (routine discharge) Shannan Polanco APRN Non-patient / Non-visit -[facility] March 31, 2025 4:10pm KAUSHIK Villanueva-CDeparted Physician/Provider [facility] 11:41amSept2024 12:15pmDischarged to home care or self care (routine discharge)[facility]afsa Browning , [facility] 12:13pmSept2024 12:14pm Discharged to home care or self care (routine discharge)Hafsa Browning MD Departed Physician/Provider [facility] 11:38amOctober 2024 12:23pmDischarged to home care or self care (routine discharge)Hafsa Browning MD Recent Diagnosis Onset Date Admit Date Osteoarthritis of right knee Unknown Feb 8:51am Preoperative clearance Unknown February 8:51am Recurrent UTI (urinary tract infection) Unknown February 17, 2025 8:51am Viral URI Unknown February 22 1:12pm Cellulitis of knee, right Unknown Sept2024 11:41am Edema of right lower extremity Unknown O ctober 2024 11:38am Assessments Diagnosis Onset Date Resolution Status Admit Date Osteoarthritis of right knee acuteAugust 2024 8:51amPreoperative clearanceacuteAugust 2024 8:51am Recurrent UTI (urinary tract infection)acuteAugust 2024 8:51amViral URI acuteAugust 2024 1:12pmCellulitis of knee, rightacuteSeptember 2024 11:41amEdema of right lower extremityacuteOctober 2024 11:38am Plan of Treatment Author Shannan Polanco [facility] 2024 2:08pmIllness is likely viral in nature; and may take up to 7-10 days to run its course. Treatment is symptomatic. Push fluids, rest. May use tylenol and motrin as needed. If symptoms do not resolve over the next few days, patient is to call back. Author Hafsa Browning [facility] 2024 2:07pmFollowup w Dr. Huynh as scheduled. macrobid daily restarted. Damaso is in good health and is able to proceed w surgery as planned. Reviewed lab results w pt. Author Hafsa [facility] 2024 2:33pmwound culture sent. start bactrim. stop cefdinir. will share culture results and notes w Dr. Perdomo. Continue PT. Call if symptoms worsen. Future Tests Future scheduled test information is unavailable Pending Tests Test Name Ordered Date Scheduled Date US venous duplex LE RT May 13, 2025 12:05p m Future Visits Future appointment information is unavailable Future Procedures Procedure Name Ordered Date Scheduled Date Body Fluid Culture April 08, 2025 12:13pm Future Medications Future medication information is unavailable Patient Instructions Patient instructions are unavailable
--- OUTSIDE RECORDS SUMMARY | 2025-05-13 13:00 | XMS_ITS | CCD ---
Author Organization [facility] Care Team Providers Care Catshovel Driver Name Role Phone HARLAN KNOWLES Primary Care [...] Almonte Attending Unavailable Katie Almonte Admitting Unavailable Maryan Mcwilliams MD Attending Provider Harlan Knowles MD Primary Care Provider [phone] ZAIDA CHILD Attending Unavailable HARLAN KNOWLES Referring Unavailable HARLAN KNOWLES Primary Care Unavailable HARLAN KNOWLES Primary Care Unavailable [facility]ARDIOLOG[facility], [facility] Consulting Unavailable HESHAM AMADOR Admitting Unavailable HESHAM AMADOR Attending Unavailable DUTCH ELLSWORTH Consulting Unavailable ANTONY THIBODEAUX Referring Unavailable HARLAN KNOWLES Primary Care Unavailable KATHRYN SORENSEN Referring Unavailable KNOWLES, HARLAN E Primary Care Unavailable Hralan Knowles MD Primary Care Provider [phone] KNOWLES, HARLAN E Referring Unavailable KNOWLES, HARLAN E Primary Care Unavailable KNOWLES, HARLAN E Referring Unavailable KNOWLES, HARLAN E Primary Care Unavailable DUTCH ELLSWORTH Attending Unavailable KNOWLES, HARLAN E Referring Unavailable KNOWLES, HARLAN E Primary Care Unavailable DORIAN EVANS Referring Unavailable KNOWLES, HARLAN E Primary Care Unavailable KEYUR ELLSWORTHON C Referring Unavailable KNOWLES, HARLAN E Primary Care Unavailable MADDIE RAMACHANDRAN Attending Unavailable KNOWLES, HARLAN E Referring Unavailable KNOWLES, HARLAN E Primary Care Unavailable TAMARA, DUTCH C Referring Unavailable KNOWLES, HARLAN E Primary Care Unavailable Harlan Knowles MD Primary Care Provider [phone] Harlan Knowles MD Primary Care Provider Harlan Knowles MD Attending Provider Dario Bess Attending Unavailable Dario Bess Admitting Unavailable Knowles, Harlan E Primary Care Unavailable Knowles, Harlan E Primary Care Unavailable Quentin Hernandez V. Attending Unavailable Quentin Hernandez V. Admitting Unavailable Dario Bess Attending Unavailable Dario Bess [...] Care Unavailable Johny Perdomo DO Attending Provider [phone] Shannan Polanco APRN Attending Provider Benson JACOB, Harlan Ledezma Primary Care Unava ilable Conor HENSON, Johny Bell Attending Unavailparadise Knowles MD, Harlan Ledezma [facility] Care Unava ilable Conor HENSON, Johny Bell Attending Unavailabl e Conor HENSON, Johny Bell Attending Unavailabl e Conor HENSON, Johny Bell Admitting Unavailparadise Knowles MD, Harlan Ledezma [facility] Care Unava ilable Cortez JACOB, Marielena Scott Consulting Unavail able Johny Perdomo DO Attending UnavailHarlan Hernandez MD Primary Care Provider Harlan Knowles MD Attending Provider Odliia Driscoll PA-C Attending Provider Maryan Mcwilliams Attending Unavailable Maryan Mcwilliams Admitting Unavailable Harlan Knowles Attending Unavailable Harlan Knowles Primary Care Unavailable Harlan Knowles Admitting Unavailable HARLAN KNOWLES Primary Care Unavailable JOHNY PERDOMO Referring Unavailable JOHNY PERDOMO Referring Unavailable HARLAN KNOWLES Primary Care Unavailable JOHNY PERDOMO Referring Unavailable HARLAN KNOWLES Primary Care Unavailable Allergies Allergy ClassificationReported Allergen(s)Allergy TypeDate of OnsetReaction(s) Facility (20 sources)Codeine; Translations: [codeine]Drug Rejnafr45-68-3666Meaqtb, GI DisturbanceExecutive [facility]rology of [facility] (1 source)CodeineDrug AllergyThe [facility] Repository (2 sources)Acetaminophen / HYDROcodoneDrug AllergyUnkWashington County Memorial Hospital [facility] Other (2 sources)CodeineDrug AllergyBaystate Noble HospitalSTATS Group Other (2 sources)patient allergy list reviewed by nurse or physiciaPropensity to adverse wimotrlmn02-87-7499Najrrlo:[employer] Other (2 sources)Allergies ReconciledPropensity to adverse reactionsSt. Joseph'S Hospital Of HuntingburgLaserGen Other (13 sources)Acetaminophen; Translations: [acetaminophen]Drug Mpkbrmg56-27-6261 [facility] (13 sources)HYDROcodone; Translations: [hydrocodone]Drug Qtjaypb12-47-4095PqkjtMercy Health West Hospital (2 sources)CodeineDrug Dbmkokx14-23-2276GedtipejhSelect Medical [facility] Repository Medications Current Medications MedicationDrug Class(es)DatesSig (Normalized)Sig (Original)acetaminophen 500 mg oral tablet (12 sources)take 2 tablets by mouth every six hours as needed for pain acetaminophen (TYLENOL EXTRA STRENGTH) 500 mg tablet Take 2 tablets (1,000 mg total) by mouth every6 (six) hours as needed for pain. Activeacetaminophen (TYLENOL) 325 mg tablet Take by mouth. Activeaspirin 81 mg oral tablet (2 sources)Platelet Aggregation Inhibitor, Nonsteroidal Anti-inflammatory Drug Start: 75-01-1576krmw 1 tablet by mouth twice dailybiotin 5 mg oral capsule (20 sources)Start: 17-60-3691pvcm 1 capsule by mouth once dailyStart: 10-25-2020 biotin 5000 mcg oral capsule Refills(s) 0 Start Date: 10/25/20 Status: Ordered take 1 capsule by mouth in the morningbiotin 1 mg capsule Take 1 capsule by mouth in the morning. Activetake 1 capsule by mouth once dailyBiotin 5000 5 MG 1 capsule Orally Once a day Activecefdinir 300 mg oral capsule (2 sources)Cephalosporin AntibacterialStart: 93-07-0422kmww 1 capsule by mouth twice dailycholecalciferol 0.025 mg oral capsule (20 sources)Vitamin DStart: 44-23-6138mzol 1 capsule by mouth once dailytake 1 tablet by mouth in the morningcholecalciferol, vitamin D3, 5,000 units tablet Take 1 tablet (5,000 Units total) by mouth in the morning. Activeciprofloxacin 500 mg oral tablet (2 sources)Quinolone AntimicrobialStart: 24-10-2841ewxe 1 tablet by mouth every twelve hoursCiprofloxacin HCl 500 MG 1 tablet Orally every 12 hrs for 7 days Jul, Activecranberry preparation 500 mg oral capsule (12 sources)Non-Standardized Food Allergenic Extract, Non-Standardized Plant Allergenic Extracttake 1 mg by mouth in the morningcranberry 500 mg capsule Take 1 mg by mouth in the morning. Activetake 1 mg by mouth in the morningcranberry 500 mg capsule Take 1 mg by mouth in the morning. Suspendedcranberry 500 mg capsule Take by mouth. Activeestradiol 0.1 mg/ml vaginal cream (20 sources)EstrogenStart: 27-40-5036Hlszd: 01-24-2024 End: 67-18-5016Zatqppbbv (Estrace) 0.01 % (0.1 mg/gram) cream Discontinued 1 APPLICATOR VAGINAL Daily January 24, 2024 12:00am December 17, 2024 1:05pm for 14 daysStart: 06-66-0683mkatliasJ (ESTRACE) 0.01 % (0.1 mg/gram) vaginal cream Insert 2 g into the vagina 2 (two) times a week. 01/15/2024 ActiveStart: 19-22-1922Arixquf 0.1 mg/g Cream See Instructions, 42.5 gm, Refill(s) 6, Apply pea-sized amound around the opening of the urethra 3 times per week for 1 month then 2 times per week after for maintenance., [employer] #72, 168, cm, 01/15/24 10:54:00 EDT, Height/Length Dosing, 96, kg, 01/15/24 10:54:00 EDT, Weight Dosing Start Date: 01/15/24 Status: OrderedStart: 03-44-4328Zebgloj 0.1 mg/g Cream See Instructions, 42.5 gm, Refill(s) 6, Apply pea-sized amound around the opening of the urethra 3 times per week for 1 month then 2 times per week after for maintenance., [employer] #72, 168, cm, 08/22/22 11:52:00 EST, Height/Length Dosin... Start Date: 08/22/22 Status: Orderedibuprofen 400 mg oral tablet (3 sources)Nonsteroidal Anti-inflammatory Drugtake 1 tablet by mouth every six hours as needed for painibuprofen (MOTRIN) 400 mg tablet Take 1 tablet (400 mg total) by mouth every 6 (six) hours as needed for pain. ActivelevETIRAcetam 500 mg oral tablet (2 sources)Start: 08-18-2024 End: 49-78-9023mhkq 1 tablet by mouth oncelevETIRAcetam (KEPPRA) 500 mg tablet Take 1 tablet (500 mg total) by mouth every 12 (twelve) hours for 6 days. 12 tablet 08/18/2024 08/24/2024 Activeloratadine 10 mg oral tablet (19 sources)Start: 60-23-5697hhnr 1 tablet by mouth once dailynitrofurantoin, macrocrystals 50 mg oral capsule (20 sources)Nitrofuran AntibacterialStart: 43-05-8698menw 1 capsule by mouth once daily at mealtimeStart: 03-24-2024 End: 97-91-4951whgx 1 capsule by mouth once daily at mealtimeNitrofurantoin Macrocrystal 50 mg capsule Discontinued 0 .ROUTE .COMPLEX May 20, 2024 11:53am July 16, 2024 10:03am TAKE 1 CAPSULE BY MOUTH ONCE DAILY * TAKE WITH FOOD or a meal*Start: 01-24-2024 End: 85-76-3853zrem 1 capsule by mouth once daily at mealtimeNitrofurantoin Macrocrystal 50 mg capsule Discontinued 50 MG PO Daily January 24, 2024 11:34am March 24, 2024 8:39am must administer with a meal/foodStart: 01-24-2024 End: 17-16-3296rdlp 1 capsule by mouth twice daily at mealtimeNitrofurantoin Macrocrystal 100 mg capsule Discontinued 100 MG PO Twice daily January 24, 2024 12:00am January 24, 2024 11:35am must administer with a meal/foodNON FORMULARY (9 sources)take 1 dose by mouth in the morningNON FORMULARY Take 1 each by mouth in the morning. Med Name: [place] vitamin for bladder health. Activetake 1 dose by mouth in the morningNON FORMULARY Take 1 each by mouth in the morning. Med Name: [place] vitamin for bladder health. Suspendedsod sulf-pot chloride-mag sulf 1.479-0.188- 0.225 gram tablet (6 sources)Start: 94-97-6203bdk sulf-pot chloride-mag sulf 1.479-0.188- 0.225 gram tablet Indications: Left upper quadrant abdominal pain , Abnormal computed tomography of large intestine PATIENT TO USE $50 COUPON VOUCHER GIVENBY OFFICE, DO NOT RUN THRU INSURANCE 24 tablet 07/24/2022 ActiveStart: 01-49-8485ccf sulf- pot chloride-mag sulf 1.479-0.188- 0.225 gram tablet See instructional sheet given by office. Patient was given a [employer] coupon voucher to use, this is not to be ran through patients insurance. 24 tablet 07/18/2022 Activesulfamethoxazole 800 mg / trimethoprim 160 mg oral tablet (13 sources)Dihydrofolate Reductase Inhibitor Antibacterial, Sulfonamide AntimicrobialStart: 18-86-5013eeuv 1 tablet by mouth twice dailyStart: 05-08-2024 End: 95-08-6697tfwx 1 tablet by mouth twice dailySulfamethoxazole-Trimethoprim 800-160 mg tablet Discontinued 1 TAB PO Twice daily May 08, 2024 12:00am July 16, 2024 10:03amStart: 75-26-2612ozlj 1 tablet by mouth every twelve hoursBactrim DS 800-160 MG 1 tablet Orally Twice a day for 10 day(s) Jun, ActiveVitamin D-3 1000 UNIT (2 sources)take 1 capsule by mouth once dailyVitamin D-3 1000 UNIT 1 capsule Orally Once a day Active Completed/Discontinued Medications MedicationDrug Class(es)DatesSig (Normalized)Sig (Original)cephalexin 500 mg oral capsule (20 sources)Cephalosporin AntibacterialStart: 05-05-2024 End: 58-82-2599ubwx 1 capsule by mouth three times dailyCephalexin 500 mg capsule Discontinued 500 MG PO Three times daily May 07, 2024 12:00am May 08, 2024 3:53pmStart: 23-88-4127cztm 1 capsule by mouth every twelve hoursKeflex 500 mg Cap 500 mg = 1 cap(s), Oral, q12hr, # 6 cap(s), Refills(s) 0, Pharmacy: [facility], 168, cm, 12/05/21 10:16:00 EDT, Height/Length Dosing, 97.5, kg, 12/05/21 10:16:00 EDT, Weight Dosing Start Date: 12/05/21 Status: Orderedfexofenadine hydrochloride 60 mg oral tablet (20 sources)Histamine-1 Receptor AntagonistStart: 01-24-2024 End: 37-17-6798huvl 1 tablet by mouth twice dailyFexofenadine (Mary Allergy) 60 mg tablet Discontinued 60 MG PO Twice daily January 24, 2024 12:00am September 02, 2024 12:18pmStart: 10-25-2020 End: 71-06-0733etsignygfajl (MARY) 180 mg tablet Take by mouth. 10/25/2020 09/29/2024 Discontinued (Therapy completed)Start: 12-02-8280Jputckw Oral, Refills(s) 0 Start Date: 10/25/20 Status: Orderednaproxen 500 mg oral tablet (9 sources)Nonsteroidal Anti-inflammatory DrugStart: 05-08-2024 End: 06-50-9408fvqe 1 tablet by mouth twice dailyNaproxen 500 mg tablet Discontinued 500 MG PO Twice daily May 08, 2024 12:00am September 02, 2024 12:19pmomeprazole 40 mg delayed release oral capsule (14 sources)Proton Pump InhibitorStart: 01-21-2024 End: 33-34-4173kyit 1 capsule by mouth once dailyOmeprazole 40 mg capsule,delayed release(DR/EC) Discontinued 40 MG PO Daily January 21, 2024 12:00am January 24, 2024 11:02amStart: 59-83-0654iosw 1 capsule by mouth once dailyOmeprazole 40 MG Omeprazole 40MG, 1 (one) Capsule daily # 30, 09/05/2020, Ref. x2. Active Oral daily for 30 Aug, ActivepredniSONE 20 mg oral tablet (9 sources)Start: 05-19-2024 End: 19-89-5769pqfi 1 tablet by mouth twice dailyPrednisone 20 mg tablet Discontinued 20 MG PO Twice daily May 19, 2024 1:00am July 10:03amVitamin D3 5000 intl units oral capsule (5 sources)Start: 66-06-0115acvy 1 capsule by mouth once daily at mealtime Vitamin D3 5000 intl units oral capsule 5,000 International_Unit = 1 cap(s), Oral, Daily, with food, # 100 cap(s), Refills(s) 0 Start Date: 10/25/20 Status: Ordered Problems Active Problems Problem ClassificationProblemDateDocumented DateEpisodic/ChronicAbdominal pain (2 sources)Left upper quadrant pain; Translations: [Left upper quadrant pain] EpisodicAcute cerebrovascular disease (20 sources)Hemorrhage into subdural space of neuraxis; 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, unspecified]Onset: 515853-39-1517 ChronicAllergic reactions (2 sources)Contact dermatitis due to plants; Translations: [Unspecified contact dermatitis due to plants, except food]EpisodicBlindness and vision defects (12 sources)Visual impairment; Translations: [Unspecified visual loss]Onset: 990104-86-1032FnbwjkrBokqbcqc of urinary tract (10 sources)Kidney stone; Translations: [Calculus of kidney]55-76-2266Cpelbcal Conditions associated with dizziness or vertigo (1 source)DizzinessOnset: 65-81-7015CbigmbecMctqkosxjn and other anemia (5 sources)Fzpiab02-50-8608RgogatnvH Codes: Fall (1 source)FallOnset: 49-89-5901Wrtleorrbkntq congenital anomalies (2 sources)Multiple congenital cysts of kidney; 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, unspecified]ChronicMenopausal disorders (20 sources)Atrophic vaginitis; Translations: [Postmenopausal atrophic vaginitis]Onset: 11-71-0126UbmfboxHucwsskhujb deficiencies (2 sources)Vitamin D deficiency; Translations: [Vitamin D deficiency, unspecified]ChronicOsteoarthritis (20 sources)Arthritis; Translations: [Unspecified osteoarthritis, unspecified site]Onset: 836453-41-8545OejtvsfMudui aftercare (1 source)Patient encounter status; Translations: [Aftercare following joint replacement surgery]66-33-7087NolhmypGrwup aftercare (3 sources)Aftercare following joint replacement surgery; Translations: [Aftercare following joint replacementsurgery]Onset: 77-94-2138PiiybmpCxfvs circulatory disease (2 sources)Elevated blood-pressure reading without diagnosis of hypertension; Translations: [Elevated blood-pressure reading, without diagnosis of hypertension]EpisodicOther connective tissue disease (1 source)History of right total knee replacement; Translations: [Presence of right artificial knee joint]01-22-5146ObcakzsOypbg connective tissue disease (3 sources)Presence of right artificial knee joint; Translations: [Presence of right artificial knee joint]Onset: 27-96-6330HwtrxzgXsyce connective tissue disease (1 source)Presence of right artificial shoulder joint; Translations: [Presence of right artificial shoulder joint]Onset: 14-43-4666ZvlnvvzHwiku connective tissue disease (11 sources)Pain in right lower limb; Translations: [Pain in right leg] 42-68-8403HtookmssIgwuz connective tissue disease (5 sources)Pain in right leg; Translations: [Pain in limb]73-13-7339Mysmkcaq Other diseases of kidney and ureters (3 sources)Disorder of kidney and/or ureter; Translations: [Other specified disorders of kidney and ureter]Onset: 52-97-2910XmhfyguNtgyd diseases of kidney and ureters (13 sources)Renal mass; Translations: [Other specified disorders of kidney and ureter]Onset: 269895-97-6307HvgfumuCxiuc diseases of kidney and ureters (4 sources)Other specified disorders of kidney and ureter; Translations: [OTHER SPEC DISORDERS KIDNEY URETER]Onset: 25-65-3997CjhnfvgXrwyv diseases of kidney and ureters (1 source)Cyst of kidney, acquired; Translations: [CYST OF KIDNEY ACQUIRED] Onset: 26-75-5059PqrzharlEchss diseases of kidney and ureters (3 sources)Acquired renal cyst without neoplastic change; Translations: [Cyst of kidney, acquired]Onset: 97-72-0486DuaxndpkRwppo diseases of kidney and ureters (4 sources)Cyst of zzabfq12-36-4140FvtzqmhyUtawv diseases of kidney and ureters (8 sources)Hydronephrosis; Translations: [Unspecified hydronephrosis]07-16-2024 EpisodicOther diseases of kidney and ureters (2 sources)Unspecified hydronephrosis; Translations: [Hydronephrosis]07-16-2024 EpisodicOther diseases of kidney and ureters (7 sources)Kidney lesion; Translations: [Disorder of kidney and ureter, unspecified]44-64-0130GuzodcucOsfac diseases of kidney and ureters (1 source)Disorder of kidney and ureter, unspecified; Translations: [Unspecified disorder of kidney and ureter]84-36-6207HelwkheiArzxh endocrine disorders (13 sources)Hyperparathyroidism; Translations: [Hyperparathyroidism, unspecified]Onset: 346634-95-5913BmmooqcLdlgl endocrine disorders (2 sources)Primary hyperparathyroidism; Translations: [Primary hyperparathyroidism]ChronicOther injuries and conditions due to external causes (1 source)Injury of headOnset: 54-62-9433CzrrhdmzAorlt non-traumatic joint disorders (4 sources)Arthralgia of the lower leg; Translations: [Pain in joint, lower leg] Onset: 69-19-0424XwggiaxyUljps nutritional; endocrine; and metabolic disorders (2 sources)Obesity; Translations: [Obesity, unspecified]ChronicOther nutritional; endocrine; and metabolic disorders (2 sources)Hypercalcemia; Translations: [Hypercalcemia]ChronicOther screening for suspected conditions (not mental disorders or infectious disease) (20 sources)Elevated liver enzymes level; Translations: [Other specified abnormal findings of blood chemistry]40-00-1789DaxtqkmuOqlfl upper respiratory disease (2 sources)Allergic rhinitis; Translations: [Allergic rhinitis, unspecified] Onset: 41-12-6516KxgtbqrOpdsn upper respiratory infections (2 sources)Chronic sinusitis; Translations: [Chronic sinusitis, unspecified] ChronicOther upper respiratory infections (7 sources)Acute sinusitis; Translations: [Acute sinusitis, unspecified]Onset: 65-51-5924JegfkozhJiximwnyx; thrombophlebitis and thromboembolism (20 sources)Phlebitis; Translations: [Phlebitis and thrombophlebitis of unspecified site]Onset: 505312-36-7510DuxxqxiyDpjbfjby codes; unclassified (1 source)Pain, unspecified; Translations: [Pain, unspecified]Onset: 08-17-2024 EpisodicSkin and subcutaneous tissue infections (3 sources)Cellulitis of right knee; Translations: [Cellulitis of right lower limb]Onset: 660036-11-2785LjltjyrlSxsdrgp disorders (5 sources)Thyroid vynhlk58-74-8822KujabzmYbxaxseakicn (1 source)follow up superficial thrombophlebitis venous duplex lwr sOnset: 58-43-6982Jtbewnojubcz (1 source)Hospital Follow-upOnset: 03-99-7881Ffufjtr tract infections (20 sources)Acute cystitis; Translations: [Acute cystitis without hematuria] Onset: 60-28-8185Agogdfni Past or Other Problems Problem ClassificationProblemDateDocumented DateEpisodic/ChronicBiliary tract disease (20 sources)Biliary calculus; Translations: [Gallstone]Onset: 09-23-2024 45-70-8435YnlaizqmYzjilduuhynlo symptoms and ill-defined conditions (20 sources)Urgent desire to urinate; Translations: [Urgency of urination]Onset: 64-09-9308EgvezlxnYymx disorders (9 sources)Mood disordersOnset: 558574-97-1981Aqjre bone disease and musculoskeletal deformities (13 sources)Osteopenia; Translations: [Other specified disorders of bone density and structure, unspecified site]Onset: 799312-43-3855UmflhokgWdfnh bone disease and musculoskeletal deformities (2 sources)Bone density finding; Translations: [Other specified disorders of bone density and structure, unspecified site]Onset: 05-97-2143ReomssfoBmtpl connective tissue disease (1 source)Pain in lower limbOnset: 44-90-6896VurmyqgwQwyxaxq (7 sources)Vasovagal syncope; Translations: [Syncope and collapse]Onset: 938524-87-4574OoegfouvXhnpphcotcrt (2 sources)Abnormal result; Translations: [Other abnormal clinical finding] Onset: 95-14-6929Iojsmnjf veins of lower extremity (15 sources)Varicose veins of lower extremity; Translations: [Varicose veins of bilateral lower extremities with pain]Onset: 858294-71-3933Jshrzymh Results Test NameValueInterpretationReference RangeFacilityXR KNEE RIGHT (3 VIEWS)on 30-70-8289HP KNEE RIGHT (3 VIEWS)EXAM: XR KNEE RIGHT (3 VIEWS) HISTORY: History of total knee replacement, right. COMPARISON: Right knee [place] 03/04/2025. IMPRESSION: FINDINGS/IMPRESSION: Right total knee prosthesis with a patellar button in anatomic alignment without radiographic complication. Kellgren-Jose Armando grade 2 osteoarthritic change left knee. Interpreted by: Isaac King Jr., MD Signed by: Isaac King Jr., MD 05/03/25 Final resultNoKettering Health Greene MemorialXR Knee - right 3 [place] 05-03-2025 FINDINGS/IMPRESSION: Right total knee prosthesis with a patellar button in anatomic alignment without radiographic complication. Kellgren-Jose Armando grade 2 osteoarthritic change left knee. [facility] CONSOLIDATEDEXAM: XR KNEE RIGHT (3 VIEWS) HISTORY: History of total knee replacement, right. COMPARISON: Right knee [place] 03/04/2025. [facility] RUITraIsaac aldana Jr., MD - 05/03/2025 EXAM: XR KNEE RIGHT (3 VIEWS) HISTORY: History of total knee replacement, right. COMPARISON: Right knee [place] 03/04/2025. IMPRESSION: FINDINGS/IMPRESSION: Right total knee prosthesis with a patellar button in anatomic alignment without radiographic complication. Kellgren-Jose Armando grade 2 osteoarthritic change left knee. [facility]SC[facility] Access [facility] HealthRadiology Study observation (narrative)[facility] [employer] [facility] HealthXR Knee - right 3 ViewsOrdered By: Isaac King on 34-77-5804Dpy [facility] HospitalPureForge Work Phone: Aerobic Cultureon [phone] CultureORGANISM: Pseudomonas alcaligenes (O:PSEALC) Comments MDRO Quantity of Growth Light Growth Send Test to Ref. Lab Sent to [facility] for ID/PADDY ORGANISM: Acinetobacter lwoffii (O:ACILWO) Quantity of Growth Light Growth ORGANISM: Acinetobacter species (O:ACISPE) Comments . Quantity of Growth Light Growth Send Test to Ref. Lab Sent to Reference Lab for Sensitivity Testing ORGANISM: Gram Positive Bacilli (O:GPB) Comments . Quantity of Growth Moderate Growth Send Test to Ref. Lab Sent to [facility] for ID/PADDY Organism #1 identified as - Pseudomonas alcaligenes Multi-Drug Resistant Organism Antibiotic RSLT#1 Amikacin S Aztreonam R Cefepime I Cefotaxime R Ceftriaxone R Ciprofloxacin S Gentamicin S Levofloxacin S Meropenem I Piperacillin/Tazobactam I Tetracycline S Tobramycin S Trimethoprim/Sulfa S S = Susceptible; I = Intermediate; R = Resistant Performed at: [facility] [id number] Wire Bender Hand: Heriberto Morel PhD, Phone: [phone] Organism #3 identified as Acinetobacter parvus Please see scanned report located in the EMR under the Diagnostics tab -> Scanned Lab Reports -> Laboratory. 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 Antibiotic RSLT#1 Ampicillin S Erythromycin S Gentamicin S Penicillin S Rifampin S Tetracycline S Vancomycin S S = Susceptible; I = Intermediate; R = Resistant Performed at: [facility] [id number] Wire Bender Hand: Heriberto Morel PhD, Phone: [phone] No Anaerobes Isolated 3 Days Gram Stain Result No Bacteria Seen Rare White Blood Cells Aerobic PADDY Charge (NMIC56) SUSCEPTIBILITY ORGANISM: O:ACILWO ANTIBIOTIC INTERPRETATION PADDY Amikacin S <16 Cefepime S <2 Ceftazidime S <1 Ceftriaxone S 2 Gentamicin S <2 Meropenem S <1 Minocycline S <4 Tobramycin S <2 S = SUSCEPTIBLE I = INTERMEDIATE R = RESISTANT BLANK = DATA NOT AVAILABLE, OR DRUG NOT ADVISABLE OR TESTED R* = RESISTANCE DUE TO EXTENDED SPECTRUM BETA-LACTAMASES ESBL = EXTENDED SPECTRUM BETA-LACTAMASE TFG = THYMIDINE-DEPENDENT STRAIN DONNIE = BETA-LACTAMASE POSITIVE IB = INDUCIBLE BETA-LACTAMASE. APPEARS IN PLACE OF 'S' WITH SPECIES KNOWN TO POSSESS INDUCIBLE BETA-LACTAMASES. POTENTIALLY THEY MAY BECOME RESISTANT TO ALL B-LACTAM DRUGS. PERFORMED BY: [place] [address] PATHOLOGIST EXCEPTIONAL STUDENT EDUCATION TEACHER BRADEN GERBER M.D.[facility] [facility] Physician GroupComment on above: Performed By: #### AERC #### [place] [address] USABasophils Auto (Bld) [#/Vol]Ordered By: Odilia Driscoll on 16-60-4869Perierskq (Bld) [#/Vol]0.1 10 3/uL0.0-0.1FTrinity Health SystemBasophils/100 WBC Auto (Bld)Ordered By: Odilia Driscoll on 91-56-3883Fjhqqzpsf/100 WBC (Bld)0.9 %0.2-2.0[facility] Eosinophils/100 WBC Auto (Bld)Ordered By: Odilia Driscoll on 03-31-2025 Eosinophils/100 WBC (Bld)3.6 %0.9-7.0[facility] Erythrocyte distribution width Auto (RBC) [Ratio]Ordered By: Odilia Driscoll on 74-87-2330Lguprnqhlhx distribution width (RBC) [Ratio]14.2 %11.0-15.0 [facility] DublinHematocrit Auto (Bld) [Volume fraction]Ordered By: Odilia Driscoll on 49-10-6533Stuhczuwxg (Bld) [Volume fraction]37.2 % 36.0-48.0[facility] DublinHemoglobin [Mass/volume] in Blood Ordered By: Odilia Driscoll on 95-30-1369Avztzvoshp (Bld) [Mass/Vol]12.1 g/dL 12.0-16.0[facility] DublinLaboratory - Hematology and Cell countsOrdered By: Odilia Driscoll on 50-23-9199QAT (Bld) [Velocity]44 mm/h High<=30[facility] DublinImmature granulocytes/100 WBC (Bld)0.0 %0.0-0.5FTrinity Health SystemLeukocytes [#/volume] corrected for nucleated erythrocytes in Blood by Automated counOrdered By: Odilia Driscoll on 23-52-0496TCM corrected for nucl RBC Auto (Bld) [#/Vol]5.3 10 3/uL4.0-11.0 [facility] DublinLymphocytes Auto (Bld) [#/Vol]Ordered By: Odilia Driscoll on 77-15-9289Utfxgdquqiu (Bld) [#/Vol]2.9 10 3/uL1.2-3.8 [facility] DublinLymphocytes/100 WBC Auto (Bld)Ordered By: Odilia Driscoll on 10-91-0411Aipzszquenx/100 WBC (Bld)55.7 %20.5-60.0 [facility] Auto (RBC) [Entitic mass]Ordered By: Odilia Driscoll on 36-58-0139WQD (RBC) [Entitic mass]34.4 yzWeoj47.7-34.0 [facility] DublinMCHC Auto (RBC) [Mass/Vol]Ordered By: Odilia Driscoll on 24-37-8862LYPD (RBC) [Mass/Vol]32.5 g/dL29.9-35.2FTrinity Health SystemMCV Auto (RBC) [Entitic vol]Ordered By: Odilia Driscoll on 16-29-2043EEN (RBC) [Entitic vol]105.7 oEKqrt27.0-99.0[facility] DublinMonocytes Auto (Bld) [#/Vol]Ordered By: Odilia Driscoll on 03-31-2025 Monocytes (Bld) [#/Vol]0.7 10 3/uL0.3-0.8[facility] Monocytes/100 WBC Auto (Bld)Ordered By: Odiliakenzie Driscoll on 03-31-2025 Monocytes/100 WBC (Bld)13.4 %High1.7-12.0[facility] Neutrophils Auto (Bld) [#/Vol]Ordered By: Odilia Springer on 03-31-2025 Neutrophils (Bld) [#/Vol]1.4 10 3/uL1.4-6.5FTrinity Health System Neutrophils/100 WBC Auto (Bld)Ordered By: Odiliakenzie Driscoll on 03-31-2025 Neutrophils/100 WBC (Bld)26.4 %Low43.0-75.0[facility] DublinNo Panel InformationOrdered By: Odilia Driscoll on 87-36-5733N-Reactive Protein, Quantitative1.02 mg/dLHigh<=0.50[facility] DublinEosinophils # (Auto)0.2 10 3/uL0.0-0.7FTrinity Health SystemImmature Granulocyte # (Auto)0.00 10 3/uL0.00-0.03[facility] DublinPlatelet mean volume Auto (Bld) [Entitic vol]Ordered By: Odilia Driscoll on 10-49-0610Ljfxcqdb mean volume (Bld) [Entitic vol]11.9 fL9.5-13.5FTrinity Health System Platelets Auto (Bld) [#/Vol]Ordered By: Odilia Driscoll on 03-31-2025 Platelets (Bld) [#/Vol]384 10 3/rU597-561BdxujoaxqSelect Medical [facility] Rehabilitation Hospital - DublinRBC Auto (Bld) [#/Vol]Ordered By: Odilia Driscoll on 86-87-1116LYA (Bld) [#/Vol] 3.52 10 6/uLLow4.20-5.40[facility] DublinInpatient Clinical Summaryon 48-42-2477Zfyampxda Clinical SummaryProv[facility] [address] [place] [address] [phone] [facility] [address] [place], [place] [id number] [phone] Clinical Summary Person Information Name: Damaso Kan Age: 79 Years : 1945 Sex: Female PCP: Benson JACOB, Harlan eLdezma Marital Status: Phone: PCP: Race: White Ethnicity: Not or Language: Estonian Visit Id: Visit Reason: Speciality: Acuity: Enc Type: Observation Med Service: Orthopedics Arrival: 03/04/2025 08:48:23 Discharge: Dispo Type: Address: [address] [place] [phone] Preferred Communication Mode: Verbal Preferred Language: Estonian Discharge Diagnosis: Osteoarthritis of right knee Discharged [...] Activity Restrictions Continue to wear the anti-embolic (DEBRA) stockings day and night for 2 weeks [...] Movement: 03/03 Functional Status: Sensory Deficits: None Valuables/Belongings: Other: History of Falls Within 6 Months: [...] tablet) 650 Milligram Oral (given by mouth) every4 hours as (more content not included)...[facility] HospitalOrthopedic Progress Noteon 63-98-6914Bamskbhhbe Progress NoteSubjective Patient seen and evaluated bedside today. 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 wash applicator with mild soap/warm water [...] Oral, Daily, PRN Allergi (more content not included)...NormalOhiohealth Doctors HospitalHgb & Hcton 02-32-6714Zkubqahdbd (Bld) [Volume fraction]34.9 %Low36.0-46.0[facility] Doctors HospitalComment on above:Performed By: #### HGBHCT #### [address] [address]Ihglilbvaj (Bld) [Mass/Vol]11.9 g/dLLow12.0-16.0Ohiohealth Doctors HospitalComment on above:Performed By: #### HGBHCT #### [address] [address]Vtkjcphix Reporton 12-00-1676Lyyvzqwkl ReportIndication for Surgery Patient is a 79-year-old presenting [...] Surgeon(s) Johny Perdomo DO (Surgeon - Primary) Carbonizer Fran NIXON, Lupillo Krishna (Cable Tester) Anesthesia General Srinath JACOB, Francesca Arteaga ([employer]aterpillar Operator) Lee ALEXIS-REFUELERElvira (Provider) Warren ALEXIS-REFUELER, Jaleesa Cash (Provider) Estimated Blood Loss 300.0 mL Urine Output N/A Findings Severe valgus right knee osteoarthritis Specimen(s) None Complications None Technique Patient taken to the operative suite. Transferred to the operative table. Underwent anesthesia induction and intubation without complication. Proceeded to isolate prepped out the right lower extremity usual sterile fashion. We then had a timeout the patient, procedure, operative site was confirmed.We then proceeded to perform a midline approach [...] We then proceeded to sublux the tibia anteriorly.We placed the tibial cut guide on the tibia. We made our cut. We then checked with extension blockswere easily able to get a size 9 [...] then trialed. We tried with CPS polys. [place] that size 13 gave us the best stability withfull extension. Patella tracking was excellent. We then removed all of the implants. The medial andlateral meniscus were removed. We proceeded to remove [...] polymerized we trialed again with multiple polyethylene. [place] that the size 13 CPS gave us the best stability as well as range of motion. We implanted a size 13 CPS poly. Knee once again was copiously irrigated. Any excess cement was removed. Vancomycin powder placed in the wound. Thearthrotomy was closed with 1 Vicryl in 1 [...] home tomorrow Tourniquet Time Tourniquet Cuff 30x4 [id number], Thigh (Right), Total Time 1 Tourniquet Cuff 30x4 [id number], Thigh (Right), Total Time 5 Tourniquet Cuff 30x4 [id number], Thigh (Right), Total Time 50 Tourniquet Cuff 30x4 [id number], Thigh (Right), Total Time 56 Settin mmHg Settin mmHg Settin mmHg Settin mmHg Sponge/Needle Count Complete Fluid Count 600 cc crystalloid Catheters, Drains, Tubes None Electronically signed by Johny Perdomo DO 03/04/25 13:28 [facility] HospitalXR Knee 1 or 2 Views Righton 12-51-4599BV Knee 1 or 2 Views RightEXAM: XR Knee 1 or 2 Views Right [...] Is Signed, Electronically Signed in Other Vendor System)Normal [facility] Doctors HospitalProgress Note-Nurseon 21-20-7181Lkitohfy Note-NurseCALLED AND SPOKE WITH ANNIE REGARDING PATIENT/CASE - WITH SYNCOPE EPPISODE/FALL/INJURY (AUGUST 2024) WHICH RESULTED IN BRAIN BLEED. PATIENT STATES WAS RELEASE OF CARE BY NEUROLOGIST. CALLED AND FAXED REQUEST TO DR HUYNH INSPECTION CLERK TO REQUEST THE FOLLOWIN. NEURO CLEARANCE OR NOTE STATING PATIENT RELEASED FROM THEIR CARE/NO LONGER NEEDING CARE 2. PCP CLEARANCE WITH PROGRESS NOTE 3. LABS 4. EKG 5. ANY OTHER CARDIAC TESTING PATIENT HAD 6. LAST CARDIOLOGY PROGRESS NOTE Electronically signed by Dacia Rosario 02/25/25 15:30 EDTNormalOhiohealth Doctors Hospital Basophils Auto (Bld) [#/Vol]Ordered By: Johny Perdomo on 92-69-4064Pltgqcosf (Bld) [#/Vol]0.1 10 3/uL0.0-0.1FTrinity Health SystemBasophils/100 WBC Auto (Bld)Ordered By: Johny Perdomo on 27-98-7524Qsvqzxhtd/100 WBC (Bld)1.2 %0.2-2.0[facility] DublinEosinophils/100 WBC Auto (Bld)Ordered By: Johny Perdomo on 76-76-6469Lknragpcnkm/100 WBC (Bld)2.8 %0.9-7.0[facility] DublinErythrocyte distribution width Auto (RBC) [Ratio]Ordered By: Johny Perdomo on 71-01-3721Luewgefnsee distribution width (RBC) [Ratio]14.2 %11.0-15.0[facility] DublinEstimated glomerular filtration rate (GFR) non- AmericanOrdered By: Johny Perdomo on 21-54-8270ZWF/1.73 sq M.predicted among non-blacks MDRD (S/P/Bld) [Vol rate/Area]mL/min/{1.73_m2}>=60 mL/min/1.[address]m [address] [place], [place] [address]Globulin Calc (S) [Mass/Vol] Ordered By: Johny Perdomo on 65-72-7896Njmoeqjo (S) [Mass/Vol]4.6 g/dLSelect Medical [facility]health Rehabilitation Hospital - DublinGlucose mean value [Mass/volume] in Blood Estimated from glycated hemoglobinOrdered By: Johny Perdomo on 55-61-2869Rnigufi glucose Estimated from glycated hemoglobin (Bld) [Mass/Vol]88 mg/dLSelect Medical [facility] Rehabilitation Hospital - DublinHematocrit Auto (Bld) [Volume fraction]Ordered By: Johny Perdomo on 66-29-6305Dltbopbofl (Bld) [Volume fraction]38.0 %36.0-48.0[facility] DublinHemoglobin A1c percentageOrdered By: Johny Perdomo on 02-10-2025 HbA1c (Bld) [Mass fraction]4.7 %4.5-6.2FTrinity Health SystemComment on above:ADA RECOMMENDED LIMIT 4.0 - 6.0ADA THERAPEUTIC TARGET < 7.0ACTION SUGGESTED> 7.0Hemoglobin [Mass/volume] in BloodOrdered By: Johny Perdomo on 77-60-4114Cbygkvanww (Bld) [Mass/Vol]12.8 g/dL12.0-16.0[facility] DublinLaboratory - Chemistry and Chemistry - challengeOrdered By: Johny Perdomo on 42-05-4931Ylojauj [Mass/Vol]3.0 g/dLLow3.4-5.0[facility] DublinALP [Catalytic activity/Vol]265 U/AIbfq82-401TkyicachtSelect Medical [facility] Rehabilitation Hospital - DublinALT [Catalytic activity/Vol]50 U/C12-26BnatgbkywSelect Medical [facility] Rehabilitation Hospital - DublinAST [Catalytic activity/Vol]50 U/UUbaj41-94IolearxudSelect Medical [facility] Rehabilitation Hospital - DublinBilirubin [Mass/Vol]0.8 mg/dL0.2-1.0[facility] Calcium [Mass/Vol]9.2 mg/dL8.5-10.1FTrinity Health SystemChloride [Moles/Vol]103 mmol/S26-194ZhmtagbodSelect Medical [facility] Rehabilitation Hospital - DublinCO2 [Moles/Vol]33.4 mmol/LHigh21.0-32.0[facility] DublinCreatinine [Mass/Vol]0.87 mg/dL0.55-1.02[facility] DublinGFR/1.73 sq M.predicted MDRD (S/P/Bld) [Vol rate/Area]mL/min/{1.73_m2}>=60 mL/min/1.73m 2FTrinity Health SystemGlucose [Mass/Vol]90 mg/lL24-550ZgoaxmiaeSelect Medical [facility] Potassium [Moles/Vol]3.9 mmol/L3.5-5.1FTrinity Health SystemProtein [Mass/Vol]7.6 g/dL6.4-8.2FOhioHealth Mansfield Hospitalodium [Moles/Vol]140 mmol/P746-591MhvfkptdnSelect Medical [facility] Rehabilitation Hospital - DublinUrea nitrogen [Mass/Vol]23.0 mg/dL High7.0-18.0[facility] DublinUrea nitrogen/Creatinine [Mass ratio]26.4 mg/mgSelect Medical [facility] Rehabilitation Hospital - DublinBilirubin Ql (U)Negative NEGATIVESelect Medical [facility] Hospital - DublinGlucose (U) [Mass/Vol]NegativeNEGATIVE [facility] DublinKetones Ql (U)NegativeNEGATIVESelect Medical [facility] Rehabilitation Hospital - DublinpH (U)6.0 [pH]5.0-9.0[facility] Specific gravity (U) [Rel density]1.0101.005-1.025[facility] DublinUrobilinogen Qn (U)0.2 {Diana'U}/dL0.2-1.0[facility] DublinLaboratory - Hematology and Cell countsOrdered By: Johny Perdomo on 00-02-8113Zjtwnjhp granulocytes/100 WBC (Bld)0.2 %0.0-0.5FTrinity Health SystemLaboratory - Specimen informationOrdered By: Johny Perdomo on 42-81-8528Rdzbldwhgl (U)CLEARCLEARFTrinity Health SystemColor (U) YELLOWYELLOWSelect Medical [facility] Hospital - DublinLaboratory - UrinalysisOrdered By: Johny Perdomo on 89-02-1360Hfpzlrhsp esterase Test strip Ql (U)NegativeNEGATIVE [facility] DublinNitrite Ql (U)NegativeNEGATIVESelect Medical [facility] Hospital - DublinProtein Ql (U)NegativeNEG/TRACESelect Medical [facility]health Rehabilitation Hospital - DublinLeukocytes [#/volume] corrected for nucleated erythrocytes in Blood by Automated counOrdered By: Johny Perdomo on 66-87-0735BBZ corrected for nucl RBC Auto (Bld) [#/Vol]5.0 10 3/uL4.0-11.0[facility] Lymphocytes Auto (Bld) [#/Vol]Ordered By: Jhony Perdomo on 68-68-8899Kmjgipuyqef (Bld) [#/Vol]2.5 10 3/uL1.2-3.8[facility] DublinLymphocytes/100 WBC Auto (Bld)Ordered By: Johny Perdomo on 06-75-0683Vkuvfqpufge/100 WBC (Bld) 49.6 %20.5-60.0[facility] HospitalH Auto (RBC) [Entitic mass] Ordered By: Johny Perdomo on 79-62-1435UZR (RBC) [Entitic mass]34.3 pgHigh 26.7-34.0[facility] DublinMCHC Auto (RBC) [Mass/Vol]Ordered By: Johny Perdomo on 84-83-7855ABIH (RBC) [Mass/Vol]33.7 g/dL29.9-35.2FTrinity Health SystemMCV Auto (RBC) [Entitic vol]Ordered By: Johny Perdomo on 28-22-6056COH (RBC) [Entitic vol]101.9 xGZopp41.0-99.0[facility] DublinMonocytes Auto (Bld) [#/Vol]Ordered By: Johny Perdomo on 02-10-2025 Monocytes (Bld) [#/Vol]0.6 10 3/uL0.3-0.8[facility] Monocytes/100 WBC Auto (Bld)Ordered By: Johny Perdomo on 37-02-2530Utdkgcjlz/100 WBC (Bld)12.0 %1.7-12.0[facility] - DublinNeutrophils Auto (Bld) [#/Vol]Ordered By: Johny Perdomo on 99-83-7075Hqtoynuqbix (Bld) [#/Vol]1.7 10 3/uL1.4-6.5FTrinity Health SystemNeutrophils/100 WBC Auto (Bld) Ordered By: Johny Perdomo on 85-16-3512Ithjakhjwbe/100 WBC (Bld)34.2 %Low 43.0-75.0[facility] - DublinNo Panel InformationOrdered By: Johny Perdomo on 06-83-0993Olnswylvakg # (Auto)0.1 10 3/uL0.0-0.7FTrinity Health SystemImmature Granulocyte # (Auto)0.01 10 3/uL0.00-0.03[facility] - DublinUrine Microscopic ReviewNOSelect Medical [facility] Rehabilitation Hospital - DublinUrine Occult BloodNegativeNEGATIVESelect Medical [facility] Platelet mean volume Auto (Bld) [Entitic vol]Ordered By: Johny Perdomo on 64-94-3133Tujsrhin mean volume (Bld) [Entitic vol]12.1 fL9.5-13.5FTrinity Health SystemPlatelets Auto (Bld) [#/Vol]Ordered By: Johny Perdomo on 32-05-6065Orndhmryz (Bld) [#/Vol]297 10 3/gD781-020GsxwmniruSelect Medical [facility]health Rehabilitation Hospital - DublinRBC Auto (Bld) [#/Vol]Ordered By: Johny Perdomo on 15-90-0917RQZ (Bld) [#/Vol]3.73 10 6/uLLow4.20-5.40[facility]uder Memorial Hospitalerum or plasma albumin/globulin mass ratioOrdered By: Johny Perdomo on 02-10-2025 Albumin/Globulin [Mass ratio]0.7 {ratio}[facility] Hospitalerum or plasma anion gap determinationOrdered By: Johny Perdomo on 13-85-5731Cxsvw gap [Moles/Vol]7.5 mmol/LFTrinity Health SystemCoding Summaryon 66-68-0219Ailhsm SummaryHTMLBase 64 EkhjijehCXn0jHx+PGhlYWQ+UO4JBRSlQ39pcISxxG2pZ2YTFJpULaypYCMBTZsLIpHhcvXwPN2zeUUz ZXJu [file] bGx (more content not included)...[facility] CenterCoding Summaryon 38-91-1940Lxpybp SummaryHTMLBase 64 MmqxwsgtJEs0eHu+PGhlYWQ+OG4ENVBoZ96jjYWkdV4kK7HWDKrZNlliBVWVQFbZOpJazkStLA6gxIGc ZXJu [file] bGx (more content not included)...[facility] Medical CenterUS Injection Spider Veinson 88-99-6877LS Injection Spider VeinsEXAMINATION: US Injection Spider Veins HISTORY: Varicose veins [...] Dario Bess MD 01/22/25 7:26 am Technologist: [facility] HamiltonPatient Handouton 17-86-7026Bomziqp HandoutRadiology Sclerotherapy, Care After After sclerotherapy, it is [...] how to take care of your injection site.Make sure you: ? Wash your hands with soap and water for at least 20 seconds before and after you change your bandage. If you cannot use soap and water, use hand server security administrator. ? Change your bandage. ? Check the area around any injection sites (injection areas) every day for signs of infection. Check for: ? More redness, swelling, or pain. ? More fluid or blood. ? Warmth. ? Pus or a bad smell. Activity ? Do light exercise every day, as told by your health care provider. Walking or riding a stationarybike may be good options for you. ? Return to your normal activities when your health care provider says that it is safe. Ask what activities are safe for you. General instructions ? Take fvmv-deq-rlygmzj and prescription medicines only as told by [...] provider. Document Revised: 10/04/2022 Document Reviewed: 10/04/2022 Ahonya Patient Education ? 2024 [employer].[facility] Medical CenterXR KNEE RIGHT (MIN 4 VIEWS)on 46-04-5239ME KNEE RIGHT (MIN 4 VIEWS)EXAM: XR KNEE RIGHT (MIN 4 VIEWS) HISTORY: Osteoarthritis of right knee, unspecified osteoarthritis type COMPARISON: 05/07/2024 Henrik IMPRESSION: FINDINGS/IMPRESSION: 1. Kellgren-Jose Armando grade 3 osteoarthritic change right knee. 2. Grade 2 osteoarthritic change left knee. 3. Moderate right patellofemoral osteoarthritic change. 4. No joint effusion, fracture, or chondrocalcinosis. Interpreted by: Isaac King Jr., MD Signed by: Isaac King Jr., MD 01/18/25 Final resultNoKettering Health Greene MemorialXR Knee - right 4 Viewson 01-18-2025 FINDINGS/IMPRESSION: 1. Kellgren-Jose Armando grade 3 osteoarthritic change right knee. 2. Grade 2 osteoarthritic change left knee. 3. Moderate right patellofemoral osteoarthritic change. 4. No joint effusion, fracture, or chondrocalcinosis. [facility] CONSOLIDATEDEXAM: XR KNEE RIGHT (MIN 4 VIEWS) HISTORY: Osteoarthritis of right knee, unspecified osteoarthritis type COMPARISON: 05/07/2024 Henrik [facility] Isaac Anguiano Jr., MD - 01/18/2025 EXAM: XR KNEE RIGHT (MIN 4 VIEWS) HISTORY: Osteoarthritis of right knee, unspecified osteoarthritis type COMPARISON: 05/07/2024 Henrik IMPRESSION: FINDINGS/IMPRESSION: 1. Kellgren-Jose Armando grade 3 osteoarthritic change right knee. 2. Grade 2 osteoarthritic change left knee. 3. Moderate right patellofemoral osteoarthritic change. 4. No joint effusion, fracture, or chondrocalcinosis. [facility] AlleghanyRadiology Study observation (narrative)[facility] Baptist HospitalSCADA Access [facility] HealthXR Knee - right 4 ViewsOrdered By: Isaac King on 03-46-2552Guc [facility]. Mary'S HospitalPureForge Work Phone: us Injection Spider Veinson 03-48-4120GI Injection Spider VeinsEXAMINATION: US Injection Spider Veins HISTORY: Varicose veins [...] Quentin Hernandez MD 01/13/25 12:04 p Technologist: [facility] HamiltonPatient Handouton 14-10-3297Rfplqru HandoutRadiology Sclerotherapy, Care After After sclerotherapy, it is [...] how to take care of your injection site.Make sure you: ? Wash your hands with soap and water for at least 20 seconds before and after you change your bandage. If you cannot use soap and water, use hand server security administrator. ? Change your bandage. ? Check the area around any injection sites (injection areas) every day for signs of infection. Check for: ? More redness, swelling, or pain. ? More fluid or blood. ? Warmth. ? Pus or a bad smell. Activity ? Do light exercise every day, as told by your health care provider. Walking or riding a stationarybike may be good options for you. ? Return to your normal activities when your health care provider says that it is safe. Ask what activities are safe for you. General instructions ? Take fgoo-qvx-nzzwttj and prescription medicines only as told by [...] provider. Document Revised: 10/04/2022 Document Reviewed: 10/04/2022 Ahonya Patient Education ? 2023 [employer] Summaryon 55-81-2361Wuqbfe SummaryHTMLBase 64 GfiagbraZCi1eHj+PGhlYWQ+HG1BITNtU70wqQRewC0oN5INLTcQQebwECJUHUkNSnTcajMyLE3dhWJh ZXJu [file] bGx (more content not included)...[facility] Injection Spider Veinson 25-64-6207WB Injection Spider VeinsEXAMINATION: US Injection Spider Veins HISTORY: Varicose veins [...] Quentin Hernandez MD 12/31/24 11:49 a Technologist: [facility] HamiltonCoding Summaryon 75-82-1266Zphbzn Summary HTMLBase 64 EwmweznwDXj9kWv+PGhlYWQ+MU0YHEAoN78uhXJjzA8mG4JTKZvESkvdWRRFELlTUrVfjiIeSI1imGKw ZXJu [file] bGx (more content not included)...[facility] Injection Spider Veinson 65-35-2333VO Injection Spider VeinsEXAMINATION: US Injection Spider Veins HISTORY: Phlebitis and [...] Dario Bess MD 12/16/24 3:41 pm Technologist: [facility] CampusPatient Handouton 00-64-7887Ttnokfj HandoutRadiology Sclerotherapy, Care After After sclerotherapy, it is [...] how to take care of your injection site.Make sure you: ? Wash your hands with soap and water for at least 20 seconds before and after you change your bandage. If you cannot use soap and water, use hand server security administrator. ? Change your bandage. ? Check the area around any injection sites (injection areas) every day for signs of infection. Check for: ? More redness, swelling, or pain. ? More fluid or blood. ? Warmth. ? Pus or a bad smell. Activity ? Do light exercise every day, as told by your health care provider. Walking or riding a stationarybike may be good options for you. ? Return to your normal activities when your health care provider says that it is safe. Ask what activities are safe for you. General instructions ? Take ktlk-fby-guejhpv and prescription medicines only as told by [...] provider. Document Revised: 10/04/2022 Document Reviewed: 10/04/2022 Ahonya Patient Education ? 2023 [employer].[facility] CenterCoding Summaryon 29-74-7977Tnhxaa SummaryMLBase 64 RazmbcwdPOp2hYj+PGhlYWQ+PH3UWVAkP52qrQUjxN1yX3YQNHdMTwcgEXAOXElAGaEmwbOeLZ4kzATm ZXJu [file] bGx (more content not included)...[facility] HospitalConsent Forms - Physicianon 93-65-3733Mxelkwz Forms - Physician [id number]#1.00OTGTIFFNoGalion Hospital HospitalUS LE Venous Duplex Bilateralon 75-17-7373RO LE Venous Duplex BilateralEXAMINATION: US LE Venous Duplex Bilateral HISTORY: Varicose [...] Dario Bess MD 12/03/24 12:51 p Technologist: [facility] HamiltonCT BRAIN WO CONTon 92-46-6641TU BRAIN WO CONTCT BRAIN WO CONT History: Subdural hematoma Technique: [...] by Quentin Gilbert MD on 10/14/2024 7:15 [facility] HospitalCT BRAIN WO CONTon 40-49-7411IR BRAIN WO CONTCT BRAIN WO CONT CT BRAIN WO CONT HISTORY: Subdural hemorrhage COMPARISON: CT head 08/27/2024 TECHNIQUE: CT brain obtained without intravenous contrast. Automated exposure control was utilized.All CT scans at this facility use dose [...] by Randy Prakash MD on 09/11/2024 6:39 AMNormalProMedica City Of Hope National Medical CenterOutside Recordson [id number] Records [id number]#1.00OT[facility] Outside [id number]#1.00OTBarberton Citizens HospitalRad - Other Radiology Reporton 15-15-0875Mrm - Other Radiology [id number]#1.00OTSumma Health Akron CampusRad - Other Radiology Report [id number]#1.00[facility] HospitalCT BRAIN WO CONTon 57-41-8903WL BRAIN WO CONTCT BRAIN WO CONT CLINICAL INFORMATION: Subdural hemorrhage ([facility]) TECHNIQUE: CT BRAIN WO CONT CT images [...] by Heriberto Jones MD on 08/27/2024 7:29 PMNormalProMedica [facility] METABOLIC PANLon 80-97-4136Iwzeo gap [Moles/Vol]8 mmol/LNormal5-15 [facility] HospitalComment on above:Performed By: #### JUSTINA, BMP ####[facility] ([id number])[address], [address], [place] [address]Ojwiqez [Mass/Vol]8.4 mg/dLLow8.5-10.5PKettering Health Washington TownshipComment on above:Performed By: #### JUSTINA, BMP ####[facility] ([id number])[address], [address], [place] [address]Coimtcxs [Moles/Vol]106 mmol/SCasvop51-675OzyPbtuwo [place] HospitalComment on above:Performed By: #### JUSTINA, BMP ####[facility] ([id number])[address], [address] [place] [address]ZL9 [Moles/Vol]25 mmol/UAqzhxb75-57XnhPvfmne [place] [facility] Comment on above:Performed By: #### CBCMiriam, BMP ####[facility] ([id number])[address], [address] [place] [place] [address]Szhwtwudrs [Mass/Vol]0.66 mg/dLNormal0.40-1.00ProGlenbeigh HospitalComment on above:Result Comment: METHOD TRACEABLE TO IDMS STANDARDPerformed By: #### CBCA, BMP ####[facility] ([id number])[address] [address], [place] [address]kVDG (CKD-EPI) NON-RACE DEPENDENT>90Normal>59ProSelect Medical [facility] Hospital - Dublinca [place] HospitalComment on above:Result Comment: Reported eGFR is based on the CKD-EPI 2020 equation that does not use a race coefficient.Performed By: #### JUSTINA, BMP ####[facility] ([id number])[address] [address], [place] [address]Bhswybz [Mass/Vol]100 mg/kVYpkd28-84SkbRlkxpu [place] HospitalComment on above:Performed By: #### JUSTINA BMP ####[facility] ([id number])[address] [address]Iigmwufsx [Moles/Vol]3.9 mmol/LNormal3.5-5.0ProSelect Medical [facility] - Dublinca [place] HospitalComment on above:Performed By: #### JUSTINA BMP ####[facility] ([id number])[address] [address], [place] [address]Fzuncs [Moles/Vol]139 mmol/HQcutrq631-303EdcEpavex [place] HospitalComment on above: Performed By: #### JUSTINA BMP ####[facility] ([id number])[address] [address] [place] [address]Azhn nitrogen [Mass/Vol]12 mg/dLNormal5-27 [facility] HospitalComment on above:Performed By: #### JUSTINA BMP ####[facility] ([id number])[address] [address] [place] [address]VDK AND AUTO DIFFon 02-05-0298OKVRSWCM BASOPHIL0.1 X10E9/LNormal0.0-0.2 [facility] HospitalComment on above:Performed By: #### JUSTINA, BMP ####[facility] ([id number])[address], [address], [place] [address]AWZMEUGY NEUTROPHIL6.1 X10E9/LNormal1.5-6.6[facility] Comment on above:Performed By: #### CBCA, BMP ####[facility] ([id number])[address], [address], [place] [address]Xeqjcjynt/100 WBC (Bld)0.7 %NormalFostoria City HospitalComment on above:Performed By: #### CBCA, BMP ####[facility] ([id number])[address], [address] [address]Twiecvcllay (Bld) [#/Vol]0.1 10*3/uLNormal0.0-0.4[facility] Comment on above:Performed By: #### CBCA, BMP ####[facility] ([id number])[address] [address] [place] [address]Impfemqvzwn/100 WBC (Bld) 1.1 %NormalFostoria City HospitalComment on above:Performed By: #### CBCA, BMP ####[facility] ([id number])[address], [address], [place] [address]Efsceyfugub distribution width (RBC) [Ratio]13.9 %Elojnw19.5-15.0 [facility] [facility] HospitalComment on above:Performed By: #### CBCA, BMP ####[facility] ([id number])[address], [address], [place] [address]Ligdabjgsh (Bld) [Volume fraction]31.5 %Kgl22-27PrsIjvrliFostoria City Hospital Comment on above:Performed By: #### CBCA, BMP ####[facility] ([id number])[address], [address], [place] [address]Buimovmnxd (Bld) [Mass/Vol] 10.7 g/dLLow11.7-15.5ProMedica Laurent HospitalComment on above:Performed By: #### CBCMiriam, BMP ####[facility] ([id number])[address], [address] [place] [address]Eletvgjzpjq (Bld) [#/Vol]3.8 10*3/uLHigh1.0-3.5 [facility] HospitalComment on above:Performed By: #### CBCMiriam, BMP ####[facility] ([id number])[address], [address], [place] [address]Lmxsfbvkhnw/100 WBC (Bld)32.9 %NormalProMedica Laurent HospitalComment on above:Performed By: #### CBCMiriam, BMP ####[facility] ([id number])[address], [address] [place] [address]VBE (RBC) [Entitic mass] 34.7 luVcac68-17CzsAbvapy [facility] HospitalComment on above:Performed By: #### CBCMiriam, BMP ####[facility] ([id number])[address], [address], [place] [address]YRVN (RBC) [Mass/Vol]34.0 g/eNVmcsla97-23QjcJagxkm [facility] HospitalComment on above:Performed By: #### CBCMiriam, BMP ####[facility] ([id number])[address], [address] [place] [address]OZF (RBC) [Entitic vol]102 cGJepg31-051RkzKlfoxu [facility] HospitalComment on above:Performed By: #### CBCA, BMP ####[facility] ([id number])[address], [address] [place] [address]Qubcdggaq (Bld) [#/Vol]1.4 10*3/uLHigh0-0.9ProMedica Laurent HospitalComment on above:Performed By: #### CBCA, BMP ####[facility] ([id number])[address], [address], [place] [address]Hlupsfdyw/100 WBC (Bld)12.3 %NormalProMedica Laurent HospitalComment on above:Performed By: #### CBCA, BMP ####[facility] ([id number])[address], [address], [place] [address]Wlfelhklpsa/100 WBC (Bld)53.0 %NormalProMedica Laurent HospitalComment on above:Performed By: #### CBCA, BMP ####[facility] ([id number])[address], [address] [place] [address]Urdydvgf mean volume (Bld) [Entitic vol]11.0 fLNormal7-12ProMed[facility] HospitalComment on above:Performed By: #### CBCA, BMP ####[facility] ([id number])[address], [address] [place] [address]Jggzeozut (Bld) [#/Vol]252 10*3/xFHbqjdj864-308NtgZrsphp Laurent HospitalComment on above:Performed By: #### CBCA, BMP ####[facility] ([id number])[address], [address] [place] [address]OGT COUNT3.09 X10E12/LLow3.80-5.20[facility] Comment on above:Performed By: #### CBCA, BMP ####[facility] ([id number])[address], [address] [place] [address]VDR (Bld) [#/Vol]11.6 10*3/uLHigh4.0-11.0ProMedica Laurent HospitalComment on above:Performed By: #### CBCA, BMP ####[facility] ([id number])[address], [address], [place] [address]ZVWVH METABOLIC PANLon 45-82-4453Ahvxi gap [Moles/Vol]8 mmol/LNormal5-15Pro[facility] HospitalComment on above:Performed By: #### JUSTINA BEACH ####[facility] ([id number])[address], [address] [address]Tqzxywq [Mass/Vol]8.6 mg/dLNormal8.5-10.5PPar[facility] HospitalComment on above:Performed By: #### JUSTINA BEACH ####[facility] ([id number])[address], [address] [place] [address]Paljxqat [Moles/Vol]108 mmol/PVpfrpn17-679DocIaccow [place] HospitalComment on above: Performed By: #### JUSTINA BEACH ####[facility] ([id number])[address], [address], [place] [address]PF7 [Moles/Vol]25 mmol/DAplsqe03-91JikLlrjgj [place] HospitalComment on above:Performed By: #### JUSTINA BEACH ####[facility] ([id number])[address] [address] [address] Creatinine [Mass/Vol]0.68 mg/dLNormal0.40-1.00ProUniversity [facility] HospitalComment on above:Result Comment: METHOD TRACEABLE TO IDTN STANDARDPerformed By: #### BAYLEE, CBCA ####[facility] ([id number])[address] [address] [place] [address]EYP/1.73 sq M.predicted among non-blacks MDRD (S/P/Bld) [Vol rate/Area]90 mL/min/{1.73_m2}Normal>59Pro[facility] HospitalComment on above: Result Comment: Reported eGFR is based on the CKD-EPI 2020 equation that does not use a race coefficient.Performed By: #### BAYLEE CBCA ####[facility] ([id number])[address], [address] [address]Mkmtbfs [Mass/Vol]104 mg/lBYljt38-21SolKrkiah [place] HospitalComment on above:Performed By: #### BAYLEE CBCA ####[facility] ([id number])[address], [address], [place] [address]Axxohqyhy [Moles/Vol]3.8 mmol/LNormal3.5-5.0Pro[facility] HospitalComment on above:Performed By: #### BAYLEE CBCA ####[facility] ([id number])[address], [address], [place] [address]Kbzjky [Moles/Vol]141 mmol/FXpxedk082-123PcvDnmhya [place] HospitalComment on above: Performed By: #### BAYLEE CBCA ####[facility] ([id number])[address], [address] [place] [address]Khgx nitrogen [Mass/Vol]15 mg/dLNormal5-27 [facility] HospitalComment on above:Performed By: #### BAYLEE CBCA ####[facility] ([id number])[address], [address], [place] [address]XYK AND AUTO DIFFon 11-87-6665IIFAVHXK BASOPHIL0.0 X10E9/LNormal0.0-0.2 [facility] HospitalComment on above:Performed By: #### BAYLEE, CBCA ####[facility] ([id number])[address], [address] [address]WBCYUEJI NEUTROPHIL5.5 X10E9/LNormal1.5-6.6[facility] Comment on above:Performed By: #### BAYLEE, CBCA ####[facility] ([id number])[address], [address] [address]Mbjkycyab/100 WBC (Bld)0.4 %NormalProMedica Laurent HospitalComment on above:Performed By: #### BMP, CBCA ####[facility] ([id number])[address], [address] [place] [address]Ksdcwzhwtnc (Bld) [#/Vol]0.1 10*3/uLNormal0.0-0.4[facility] Comment on above:Performed By: #### BMP, CBCA ####[facility] ([id number])[address], [address] [address]Gdeueqrhfyx/100 WBC (Bld) 0.7 %NormalMercy Memorial Hospital HospitalComment on above:Performed By: #### BMP, CBCA ####[facility] ([id number])[address], [address] [place], [place] [address]Hmxqxbvlixa distribution width (RBC) [Ratio]13.7 %Roxtjb47.5-15.0 [facility] HospitalComment on above:Performed By: #### BAYLEE, CBCA ####[facility] ([id number])[address] [address] [place] [address]Ztnrwqyvvy (Bld) [Volume fraction]30.9 %Cit62-60MdcJdoxhpFostoria City Hospital Comment on above:Performed By: #### BAYLEE, CBCA ####[facility] ([id number])[address] [address] [place] [address]Hybbupwyfw (Bld) [Mass/Vol] 10.6 g/dLLow11.7-15.5PPar[facility] HospitalComment on above:Performed By: #### BMP, CBCA ####[facility] ([id number])[address] [address] [place] [address]Lwchnfivyky (Bld) [#/Vol]3.6 10*3/uLHigh1.0-3.5 [facility] HospitalComment on above:Performed By: #### BMP, CBCA ####[facility] ([id number])[address], [address], [place] [address]Qtksbuejfur/100 WBC (Bld)34.7 %NormalProMedica Laurent HospitalComment on above:Performed By: #### BMP, CBCA ####[facility] ([id number])[address], [address], [place] [address]FWU (RBC) [Entitic mass] 35.2 xqCllr84-24BcdGiguax [facility] HospitalComment on above:Performed By: #### BMP, CBCA ####[facility] ([id number])[address], [address], [place] [address]XJRJ (RBC) [Mass/Vol]34.4 g/pXRenghh52-68RntTfzjpu [facility] HospitalComment on above:Performed By: #### BMP, CBCA ####[facility] ([id number])[address], [address], [place] [address]YOT (RBC) [Entitic vol]102 wAKdlr91-345OfvEmqyat [facility] HospitalComment on above:Performed By: #### BMP, CBCA ####[facility] ([id number])[address], [address], [place] [address]Bkuopxuew (Bld) [#/Vol]1.1 10*3/uLHigh0-0.9[facility] HospitalComment on above:Performed By: #### BMP, CBCA ####[facility] ([id number])[address], [address], [place] [address]Hvkacinod/100 WBC (Bld)11.0 %NormalProMedica Laurent HospitalComment on above:Performed By: #### BMP, CBCA ####[facility] ([id number])[address], [address], [place] [address]Qtebdanfcwm/100 WBC (Bld)53.2 %NormalProMedica Laurent HospitalComment on above:Performed By: #### BAYLEE, CBCA ####[facility] ([id number])[address], [address] [place] [address]Jdbbduwf mean volume (Bld) [Entitic vol]10.8 fLNormal7-12[facility] HospitalComment on above:Performed By: #### BAYLEE, CBCA ####[facility] ([id number])[address], [address] [place] [address]Jwarzpbgr (Bld) [#/Vol]229 10*3/aPPubfms521-810HufEzpdag [facility] HospitalComment on above:Performed By: #### BAYLEE, CBCA ####[facility] ([id number])[address], [address] [place] [address]ATW COUNT3.02 X10E12/LLow3.80-5.20[facility] Comment on above:Performed By: #### BAYLEE CBCA ####[facility] ([id number])[address], [address] [place] [address]PRS (Bld) [#/Vol]10.3 10*3/uLNormal4.0-11.0[facility] HospitalComment on above:Performed By: #### BAYLEE, CBCA ####[facility] ([id number])[address] [address] [place] [address]WRNLEEBMGEpz 40-79-0294Askezsvxc Ql (U)NegativeNormal NEGProMedica Laurent HospitalComment on above:Performed By: #### UA ####[facility] ([id number])[address], [address] [place] [address] BLOOD/HGBNegativeNormalNEGProMedica Laurent HospitalComment on above:Performed By: #### UA ####[facility] ([id number])[address], [address] [address]Dpyli (U)YELLOWNormalYELLOWProMedica Laurent HospitalComment on above:Performed By: #### UA ####[facility] ([id number])[address] [address]Tgqrfjl Ql (U)NegativeNormalNEGProMedica Laurent HospitalComment on above:Performed By: #### UA ####[facility] ([id number])[address], [address] [address]Qdzngez Ql (U) NegativeNormalNEGProMedica Laurent HospitalComment on above:Performed By: #### UA ####[facility] ([id number])[address], [address] [address]Ycsincxdo esterase Test strip Ql (U)NegativeNormalNEGProMedica Laruent HospitalComment on above:Performed By: #### UA ####[facility] ([id number])[address], [address] [address]VITEDSMZLONNBJzgdhftxULUC [facility] HospitalComment on above:Performed By: #### UA ####[facility] ([id number])[address], [address] [address] Nitrite Ql (U)NegativeNormalNEGProMedica Laurent HospitalComment on above: Performed By: #### UA ####[facility] ([id number])[address], [address] [address]qA (U)6.0 [pH]Normal5.0-8.5[facility] HospitalComment on above:Performed By: #### UA ####[facility] ([id number])[address], [address] [address]Azzelxg Ql (U)NegativeNormal NEGProMedica Laurent HospitalComment on above:Performed By: #### UA ####[facility] ([id number])[address], [address] [place] [address] R.B.CELLS1 /hpfNormal0-5[facility] HospitalComment on above:Performed By: #### UA ####[facility] ([id number])[address], [address] [place] [address]Vhmcsgxu gravity (U) [Rel density]1.326Scjjco2.003-1.035 [facility] HospitalComment on above:Performed By: #### UA ####[facility] ([id number])[address], [address] [place] [address] SQUAMOUS EPITHELIUM3 /hpfNormal0-5[facility] HospitalComment on above: Performed By: #### UA ####[facility] ([id number])[address] [facility] [address] [place] [address]ZAUBPXXNBVPLKYFpjhisKHYXVKwpSgxiqw [facility] HospitalComment on above:Performed By: #### UA ####[facility] ([id number])[address] [address] [place] [address]Czntfojbioxn (U) [Mass/Vol] mg/dLNormal<1.1ProMedMercy [facility] HospitalComment on above:Performed By: #### UA ####[facility] ([id number])[address], [address] [place] [address]L.B.CELLS1 /hpfNormal0-5PWill[facility] Laurent HospitalComment on above:Performed By: #### UA ####[facility] ([id number])[address], [address] [place] [address]REQHC METABOLIC PANLon 03-25-3298Tdqip gap [Moles/Vol]9 mmol/L Normal5-15[facility] HospitalComment on above:Performed By: #### JUSTINA, BMP #### [facility] ([id number]) [address], [address] [place], [place] [address]Xamltdj [Mass/Vol]8.0 mg/dLLow8.5-10.5PKettering Health [facility] Comment on above:Performed By: #### JUSTINA, BMP #### [facility] ([id number]) [address], [address] [place], [place] [address]Vjwgtdpe [Moles/Vol]109 mmol/QQomuds61-047TuwPghyns [place] HospitalComment on above:Performed By: #### JUSTINA, BMP #### [facility] ([id number]) [address], [address] [place], [place] [address] [Moles/Vol]23 mmol/OFkkrwm78-01PaePovhxuKettering Health Washington Township Comment on above:Performed By: #### JUSTINA, BMP #### [facility] ([id number]) [address], [address] [place], [place] [address]Dfmpxztqcw [Mass/Vol]0.72 mg/dLNormal0.40-1.00ProGlenbeigh HospitalComment on above:Result Comment: METHOD TRACEABLE TO IDMS STANDARD Performed By: #### JUSTINA, BMP #### [facility] ([id number]) [address], [address] [place], [place] [address]UXU/1.73 sq M.predicted among non-blacks MDRD (S/P/Bld) [Vol rate/Area]86 mL/min/{1.73_m2}Normal>59ProGlenbeigh HospitalComment on above: Result Comment: Reported eGFR is based on the CKD-EPI 2020 equation that does not use a race coefficient.Performed By: #### JUSTINA, BMP #### [facility] ([id number]) [address], [address] [place], [place] [address]Qnokesh [Mass/Vol]91 mg/qZXlomfg44-98CjbYbmxhd [facility] Comment on above:Performed By: #### JUSTINA, BMP #### [facility] ([id number]) [address], [address] [place], [place] [address]Ntgafzdgl [Moles/Vol]3.6 mmol/LNormal3.5-5.0[facility] [place] HospitalComment on above:Performed By: #### CBCMiriam, BMP #### [facility] ([id number]) [address], [address] [place], [place] [address]Vosvfa [Moles/Vol]141 mmol/LPtjzrg701-023WskRvbvxj [place] HospitalComment on above:Performed By: #### JUSTINA, BMP #### [facility] ([id number]) [address], [address] [place], [place] [address]Ohio nitrogen [Mass/Vol]16 mg/dLNormal5-27[facility] [place] HospitalComment on above:Performed By: #### CBCMiriam, BMP #### [facility] ([id number]) [address], [address] [place], [place] [address]LOS AND AUTO DIFFon 05-63-3368XUUZYGWN BASOPHIL0.1 X10E9/LNormal 0.0-0.2[facility] [place] HospitalComment on above:Performed By: #### JUSTINA, BMP #### [facility] ([id number]) [address], [address] [place], [place] [address]AJUIFTDX NEUTROPHIL3.6 X10E9/LNormal1.5-6.6[facility] [place] HospitalComment on above:Performed By: #### CBCMiriam, BMP #### [facility] ([id number]) [address], [address] [place], [place] [address]Rxrlafqgo/100 WBC (Bld)1.2 %NormalProGlenbeigh Hospital Comment on above:Performed By: #### CBCMiriam, BMP #### [facility] ([id number]) [address], [address] [place], [place] [address]Jqhtbciwfmw (Bld) [#/Vol]0.1 10*3/uLNormal0.0-0.4Pro[facility] HospitalComment on above:Performed By: #### CBCA, BMP #### [facility] ([id number]) [address], [address] [place], [place] [address]Tyqjxdyvmhd/100 WBC (Bld)0.8 %NormalProUniversity [facility]als [facility] Hospital Comment on above:Performed By: #### CBCA, BMP #### [facility] ([id number]) [address] [address]Tpybukilbrn distribution width (RBC) [Ratio]13.8 %Normal 11.5-15.0ProUniversity [facility]als [facility] HospitalComment on above:Performed By: #### CBCA, BMP #### [facility] ([id number]) [address], [address] [place], [place] [address]Ddsiucuhfn (Bld) [Volume fraction]32.0 %Eny74-69PdhRpbokj [place] HospitalComment on above:Performed By: #### CBCA, BMP #### [facility] ([id number]) [address] [address]Pqxdiljrps (Bld) [Mass/Vol]10.7 g/dLLow11.7-15.5PParma Community General Hospital HospitalComment on above:Performed By: #### CBCA, BMP #### [facility] ([id number]) [address], [address] [place], [place] [address]Maendpujxpo (Bld) [#/Vol]3.9 10*3/uLHigh1.0-3.5[facility] HospitalComment on above:Performed By: #### CBCA, BMP #### [facility] ([id number]) [address], [address] [place], [place] [address]Xpbvzwfjfov/100 WBC (Bld)45.9 %NormalFostoria City Hospital Comment on above:Performed By: #### CBCA, BMP #### [facility] ([id number]) [address], [address] [place], [place] [address]GAN (RBC) [Entitic mass]34.6 fgJpnk73-90HbtZhwjgsGlenbeigh HospitalComment on above:Performed By: #### CBCA, BMP #### [facility] ([id number]) [address], [address] [place], [place] [address]SGIF (RBC) [Mass/Vol]33.4 g/sSQyytuy11-39QgiXwwvhu [place] HospitalComment on above:Performed By: #### CBCA, BMP #### [facility] ([id number]) [address], [address] [place], [place] [address]JKL (RBC) [Entitic vol]104 kNWtje89-883DhcVhojesFostoria City Hospital Comment on above:Performed By: #### CBCA, BMP #### [facility] ([id number]) [address], [address] [place], [place] [address]Gfjqrplko (Bld) [#/Vol]0.9 10*3/uLNormal0-0.9ProGlenbeigh HospitalComment on above:Performed By: #### CBCA, BMP #### [facility] ([id number]) [address], [address] [place], [place] [address]Apavlycoz/100 WBC (Bld)10.1 %NormalFostoria City Hospital Comment on above:Performed By: #### CBCA, BMP #### [facility] ([id number]) [address], [address] [place], [place] [address]Zhqlxmclyhz/100 WBC (Bld)42.0 %NormalFostoria City Hospital Comment on above:Performed By: #### CBCA, BMP #### [facility] ([id number]) [address], [address] [place], [place] [address]Ixuihfld mean volume (Bld) [Entitic vol]10.5 fLNormal7-12 [facility] HospitalComment on above:Performed By: #### JUSTINA, BMP #### [facility] ([id number]) [address], [address] [place], [place] [address]Gbjyfvkqg (Bld) [#/Vol]229 10*3/nOVytthy469-730GnmSdofkd [place] HospitalComment on above:Performed By: #### JUSTINA BMP #### [facility] ([id number]) [address], [address] [place] [address]XVY COUNT3.09 X10E12/LLow3.80-5.20Pro[facility] Hospital Comment on above:Performed By: #### JUSTINA BMP #### [facility] ([id number]) [address], [address] [place] [address]NYM (Bld) [#/Vol]8.5 10*3/uLNormal4.0-11.0ProGlenbeigh HospitalComment on above:Performed By: #### JUSTINA, BMP #### [facility] ([id number]) [address], [address] [place], [place] [address]FY BRAIN WO CONTon 94-59-9261VX BRAIN WO CONTCT BRAIN WO CONT CT HEAD WITHOUT CONTRAST HISTORY: Head trauma, subdural hematoma COMPARISON: 08/17/2024 TECHNIQUE: Routine noncontrast CT head. All CT scans at this facility use dose modulation, iterative reconstruction, and/or weight based dosing when appropriate to reduce radiation dose to as low as reasonably achievable. FINDINGS: Right subdural hematoma measuring 1.4 cm in greatest thickness is unchanged. No significant midlineshift. No new intracranial hemorrhage. No evidence of ventricular outflow obstruction. Right parietal scalp hematoma is unchanged. Visualized paranasal sinuses and temporal bone structures are clear.No skull fractures. IMPRESSION: * Stable right subdural hematoma measuring 1.4 cm in greatest thickness. Finalized by Sudhir Lawson MD on 08/18/2024 4:00 AMNormalProUniversity Hospitals [facility] Center HospitalCalcium.ionized (Bld) [Mass/Vol]on 99-31-8795KIPPHCT CALCIUM4.7 mg/dL Normal4.5-5.3PParma Community General Hospital HospitalComment on above:Performed By: #### 51745- 9 ####[facility] ([id number])[address], [address], [place] [address]YQDKMKGZQls 59-12-8584Rvnxtrauk [Moles/Vol]3.8 mmol/LNormal3.5-5.0 [facility] HospitalComment on above:Performed By: #### 2823-3 ####[facility] ([id number])[address], [address] [place] [address] AMYLASEon 89-36-4819Pxvdhba [Catalytic activity/Vol]21 U/JZwv31-663HtxSdhmyoFostoria City HospitalComment on above:Performed By: #### CBCA, 1798-8, 5643-2, 3040-3, CMP #### [facility] ([id number]) [address], [address] [place] [address]Xlbuzwruycjs LM Ql (Bld)on 32-58-9768Wmlodpjdjvok Ql (Bld) Anisocytosis [Presence] in Blood by Light microscopySelect Medical Ohiohealth Rehabilitation Hospital - DublinBasophils/100 WBC Manual cnt (Bld)on 07-22-9770Lvfnclsbn/100 WBC (Bld) Basophils/100 leukocytes in Blood by Manual countLow0.2-2.0[facility] - DublinCBC AND AUTO DIFFon 77-48-1996MZPFBXIQ BASOPHIL0.2 X10E9/LNormal 0.0-0.2PKettering Health Washington TownshipComment on above:Performed By: #### CBCA, 1798- 8, 5643-2, 3040-3, CMP #### [facility] ([id number]) [address] [address] [place], [place] [address]TPIRGEZO NEUTROPHIL5.0 X10E9/LNormal1.5-6.6ProGlenbeigh HospitalComment on above:Performed By: #### CBCMiriam, 8, 5643-2, 3040-3, CMP #### [facility] ([id number]) [address] [address] [place], [place] [address]Goxicdyko/100 WBC (Bld)1.9 %NormalFostoria City Hospital Comment on above:Performed By: #### JUSTINA, 1798-02, 5643-2, 3040-3, CMP #### [facility] ([id number]) [address] [address] [place], [place] [address]Qqwgksmucnd (Bld) [#/Vol]0.1 10*3/uLNormal0.0-0.4ProGlenbeigh HospitalComment on above:Performed By: #### CBCMiriam, 1798-02, 5643-2, 3040-3, CMP #### [facility] ([id number]) [address] [address] [place], [place] [address]Rgytdyuaqpa/100 WBC (Bld)0.5 %NormalFostoria City Hospital Comment on above:Performed By: #### JUSTINA, 1798-02, 5643-2, 3040-3, CMP #### [facility] ([id number]) [address] [address] [place], [place] [address]Nqtkiyduzee distribution width (RBC) [Ratio]13.5 %Normal 11.5-15.0ProGlenbeigh HospitalComment on above:Performed By: #### CBCMiriam, 1798-02, 5643-2, 3040-3, CMP #### [facility] ([id number]) [address] [address] [place], [place] [address]Uogubclmcm (Bld) [Volume fraction]37.7 %Dmkbxn40-30AkuJadcxa [place] HospitalComment on above:Performed By: #### JUSTINA, 1797-, 5643-2, 3040-3, CMP #### [facility] ([id number]) [address], [address] [place], [place] [address]Ixqqvlqelv (Bld) [Mass/Vol]12.4 g/vUBuoemc50.7-15.5PParma Community General Hospital HospitalComment on above:Performed By: #### JUSTINA, 1798-02, 5643-2, 3040-3, CMP #### [facility] ([id number]) [address], [address] [place], [place] [address]Zexpllgbrem (Bld) [#/Vol]5.2 10*3/uLHigh1.0-3.5PParma Community General Hospital HospitalComment on above:Performed By: #### JUSTINA, 1798-02, 5643-2, 3040-3, CMP #### [facility] ([id number]) [address], [address] [place], [place] [address]Ppqmizihnvy/100 WBC (Bld)45.8 %NormalProUniversity Hospitals [facility] Hospital Comment on above:Performed By: #### JUSTINA, 1798-02, 5643-2, 3040-3, CMP #### [facility] ([id number]) [address], [address] [place], [place] [address]EGR (RBC) [Entitic mass]33.8 xbRtwpbs20-55KjaKlgqys [place] HospitalComment on above:Performed By: #### JUSTINA, 1797-, 5643-2, 3040-3, CMP #### [facility] ([id number]) [address], [address] [place], [place] [address]JFCF (RBC) [Mass/Vol]32.9 g/eTDkseqe20-42NpcJgseqc [place] HospitalComment on above:Performed By: #### JUSTINA, 1798-8, 5643-2, 3040-3, CMP #### [facility] ([id number]) [address], [address] [place], [place] [address]IOR (RBC) [Entitic vol]103 nNQbdr41-054KmtIusmhpFostoria City Hospital Comment on above:Performed By: #### CBCMiriam, 1797-8, 5643-2, 3040-3, CMP #### [facility] ([id number]) [address], [address] [place], [place] [address]Unbcclnik (Bld) [#/Vol]0.9 10*3/uLNormal0-0.9Fostoria City HospitalComment on above:Performed By: #### CBCMiriam, 1797-8, 5643-2, 3040-3, CMP #### [facility] ([id number]) [address], [address] [place], [place] [address]Ggjolpbiy/100 WBC (Bld)7.6 %NormalFostoria City Hospital Comment on above:Performed By: #### CBCMiriam, 1797-8, 5643-2, 3040-3, CMP #### [facility] ([id number]) [address], [address] [place], [place] [address]Tbsbxfcgxsw/100 WBC (Bld)44.2 %[facility] Comment on above:Performed By: #### CBCMiriam, 1797-8, 5643-2, 3040-3, CMP #### [facility] ([id number]) [address], [address] [place], [place] [address]Fjecejli mean volume (Bld) [Entitic vol]11.4 fLNormal7-12 [facility] HospitalComment on above:Performed By: #### CBCA, 1797-8, 5643- 2, 3040-3, CMP #### [facility] ([id number]) [address], [address] [place], [place] [address]Izinolngd (Bld) [#/Vol]206 10*3/jMGyurxi043-018NupFidlpi Laurent HospitalComment on above:Performed By: #### JUSTINA, 1798-02, 5643-2, 3040-3, CMP #### [facility] ([id number]) [address], [address] [place] [address]QBX COUNT3.66 X10E12/LLow3.80-5.20ProSelect Medical [facility] - [facility]ublinca [facility] Comment on above:Performed By: #### JUSTINA, 1798-02, 5643-2, 3040-3, CMP #### [facility] ([id number]) [address], [address] [place], [place] [address]LWC (Bld) [#/Vol]11.3 10*3/uLHigh4.0-11.0ProSelect Medical [facility]health Rehabilitation Hospital - Dublinca Laurent HospitalComment on above:Performed By: ###Kasey HORN, 1798-02, 5643-2, 3040-3, CMP #### [facility] ([id number]) [address], [address] [place], [place] [address]KMEKOIEXAJEPB METABOLIC PANELon 45-51-4001Ehrgbdy [Mass/Vol]3.4 g/dLNormal3.2-5.3ProMedst. vincent's hospital Laurent HospitalComment on above:Performed By: ###Kasey HORN, 1798-02, 5643-2, 3040-3, CMP #### [facility] ([id number]) [address], [address] [place], [place] [address]BHM [Catalytic activity/Vol]188 U/NJppi32-599AfbYijgxw Laurent HospitalComment on above:Performed By: ###Kasey HORN, 1798-02, 5643-2, 3040-3, CMP #### [facility] ([id number]) [address], [address] [place], [place] [address]SUI [Catalytic activity/Vol]28 U/LNormal0-31[facility] HospitalComment on above:Performed By: #### JUSTINA, 1797-8, 5643-2, 3040-3, CMP #### [facility] ([id number]) [address], [address] [place], [place] [address]Zufft gap [Moles/Vol]8 mmol/LNormal5-15ProUniversity [facility] Hospital Comment on above:Performed By: #### JUSTINA, 1798-02, 5643-2, 3040-3, CMP #### [facility] ([id number]) [address], [address] [place], [place] [address]RYD [Catalytic activity/Vol]54 U/LHigh0-41ProUniversity [facility] HospitalComment on above:Performed By: #### JUSTINA, 1798-02, 5643-2, 3040-3, CMP #### [facility] ([id number]) [address], [address] [place], [place] [address]Fuajlxyjd [Mass/Vol]1.2 mg/dLNormal0.3-1.2ProMedMer[facility] Health [facility] Hospital HospitalComment on above:Performed By: #### JUSTINA, 1798-02, 5643-2, 3040-3, CMP #### [facility] ([id number]) [address], [address] [place], [place] [address]Pntzkdf [Mass/Vol]8.9 mg/dLNormal8.5-10.5ProMedMercy Health St. Charles Hospital HospitalComment on above:Performed By: #### JUSTINA, 8, 5643-2, 3040-3, CMP #### [facility] ([id number]) [address], [address] [place], [place] [address]Rvzxhigs [Moles/Vol]108 mmol/DEutawo60-728AsvHcawmq [place] HospitalComment on above:Performed By: ###Kasey HORN, 1797-, 5643-2, 3040-3, CMP #### [facility] ([id number]) [address], [address] [place], [place] [address]RD9 [Moles/Vol]25 mmol/WRmxxdt45-63WysFqwbkfKettering Health Washington Township Comment on above:Performed By: #### JUSTINA, 1798-02, 5643-2, 3040-3, CMP #### [facility] ([id number]) [address], [address] [place], [place] [address]Udfflkxpdx [Mass/Vol]0.69 mg/dLNormal0.40-1.00ProGlenbeigh HospitalComment on above:Result Comment: METHOD TRACEABLE TO IDMS STANDARD Performed By: #### JUSTINA, 1798-02, 5643-2, 3040-3, CMP #### [facility] ([id number]) [address], [facility] [address] [place], [place] [address]KVH/1.73 sq M.predicted among non-blacks MDRD (S/P/Bld) [Vol rate/Area]89 mL/min/{1.73_m2}Normal>59ProGlenbeigh HospitalComment on above: Result Comment: Reported eGFR is based on the CKD-EPI 2020 equation that does not use a race coefficient.Performed By: #### JUSTINA, 1798-02, 5643-2, 3040-3, CMP #### [facility] ([id number]) [address], [address] [place], [place] [address]Iezqurt [Mass/Vol]78 mg/fRYgyfoj54-60EvdOuovvpFostoria City Hospital Comment on above:Performed By: #### JUSTINA, 1798-02, 43-2, 3040-3, CMP #### [facility] ([id number]) [address], [facility] [address] [place], [place] [address]Anercllnw [Moles/Vol]4.9 mmol/LNormal3.5-5.0Fostoria City HospitalComment on above:Result Comment: SPECIMEN HEMOLYZED, RESULTS INCREASED MODERATELY HEMOLYZEDPerformed By: #### JUSTINA, 1798-02, 5643-2, 3040-3, CMP #### [facility] ([id number]) [address], [address] [place] [address]Drkkfsf [Mass/Vol]7.0 g/dLNormal6.0-8.0ProUniversity [facility] Hospital Comment on above:Performed By: #### JUSTINA, 8, 5643-2, 3040-3, CMP #### [facility] ([id number]) [address], [address] [place], [place] [address]Tazpmu [Moles/Vol]141 mmol/YJngokf423-041LmfRxuuuw [place] HospitalComment on above:Performed By: #### JUSTINA, 8, 5643-2, 3040-3, CMP #### [facility] ([id number]) [address], [address] [place] [address]Jwkn nitrogen [Mass/Vol]16 mg/dLNormal5-27ProUniversity [facility] HospitalComment on above:Performed By: #### JUSTINA, 1798-02, 5643-2, 3040-3, CMP #### [facility] ([id number]) [address], [address] [place] [address]NGIK SCREEN, URINEon 29-58-8513QZNWDOWYVKN/METHAMPNegativeNormal NEGProSelect Medical [facility] Rehabilitation Hospital - Dublinca Kissimmee HospitalComment on above:Result Comment: AMPH/METH screening cut off = 1000 ng/mLPerformed By: #### DSU ####[facility] ([id number])[address], [address] [place] [address]XMTHREZQMBGVRktqhpjyErzrnj NEGProSelect Medical [facility] Hospital - Dublinca [facility] HospitalComment on above:Result Comment: Barbiturates screening cut off value = 200 ng/mLPerformed By: #### DSU ####[facility] ([id number])[address], [address] [place] [address]FTOCODDLDSLJYJH NegativeNormalNEGProSelect Medical [facility] - Dublinca [facility] HospitalComment on above:Result Comment: Benzodiazepines screening cut off value = 200 ng/mLPerformed By: #### DSU ####[facility] ([id number])[address], [address], [place] [address]MRNJRDPDUXUQNmgzdujqHbyzkdRCEZxpMmzqnh [place] HospitalComment on above: Result Comment: Cannabinoids/THC screening cut off value = 50 ng/mLPerformed By: #### DSU ####[facility] ([id number])[address], [address], [place] [address]YVVHBPP METABOLITENegativeNormalNEGProUniversity [facility] Hospital Comment on above:Result Comment: Cocaine screening cut off value = 300 ng/mL Performed By: #### DSU ####[facility] ([id number])[address], [address], [place] [address]AYHRGUJEibilnreEeuncnDCBXfzFntvlo [place] HospitalComment on above:Result Comment: Ecstasy screening cut off value = 500 ng/mL This report is intended for use in clinical monitoring or management of patients.Performed By: #### DSU ####[facility] ([id number])[address], [address], [place] [address]REUUGUYVN NegativeNormalNEGProGlenbeigh HospitalComment on above:Result Comment: Methadone screening cut off value = 300 ng/mL.Performed By: #### DSU ####[facility] ([id number])[address], [address], [place] [address] OPIATESNegativeNormalNEGProSelect Medical [facility] - Dublinca [facility] HospitalComment on above:Result Comment: Opiates screening cut off value = 300 ng/mL NOTE: This test is used for the detection of codeine, hydrocodone (>1000 ng/mL), morphine and hydromorphone (>900 ng/mL) in urine.Performed By: #### DSU ####[facility] ([id number])[address], [address] [place] [address] OXYCODONENegativeNormalNEGFostoria City HospitalComment on above:Result Comment: Oxycodone screening cut off value = 300 ng/mL NOTE: This test is used for the detection of oxycodone and oxymorphone in urine.Performed By: #### DSU ####[facility] ([id number])[address] [facility], [address] [address]SCRWWSFQRTTSK NegativeNormalNEGProGlenbeigh HospitalComment on above:Result Comment: Phencyclidine screening cut off value = 25 ng/mLPerformed By: #### DSU ####[facility] ([id number])[address] [place] [address], [address] [address]IIMKCXZdm 11-49-3695Tsjttvu [Mass/Vol]mg/dLNormal0.00-0.08Fostoria City HospitalComment on above:Result Comment: This report is intended for use in clinical monitoring or management of patients.Performed By: #### CBCA, 1798-8, 5643-2, 3040-3, CMP #### [facility] ([id number]) [address] [facility], [address] [address]Kfakknmsgjm/100 WBC Manual cnt (Bld)on 53-92-2436Kfwnrvbthvc/100 WBC (Bld)Eosinophils/100 leukocytes in Blood by Manual countLow0.9-7.0[facility] - DublinErythrocyte distribution width Auto (RBC) [Ratio]on 09-61-8182Bjzvphsrckq distribution width (RBC) [Ratio]Erythrocyte distribution width [Ratio] by Automated count11.0-15.0[facility] Estimated glomerular filtration rate (GFR) non- Americanon 08-17-2024 GFR/1.73 sq M.predicted among non-blacks MDRD (S/P/Bld) [Vol rate/Area]Estimated glomerular filtration rate (GFR) non- AmericanLow>=60 mL/min/1.73m 2 [facility] - DublinGlucose Glucometer (BldC) [Mass/Vol]on 79-53-0944Daftxtp [Mass/Vol]89 mg/eDDbnhtw65-53EtqNajtonFostoria City Hospital Hematocrit Auto (Bld) [Volume fraction]on 42-80-0022Pubmzsfhjr (Bld) [Volume fraction]Hematocrit [Volume Fraction] of Blood by Automated wrpjpDhs11.0-48.0 [facility] - DublinHemoglobin [Mass/volume] in Bloodon 08-17-2024 Hemoglobin (Bld) [Mass/Vol]Hemoglobin [Mass/volume] in ZwvwoDgq78.0-16.0 [facility] - DublinLIPASEon 92-72-8753Qsqcbv [Catalytic activity/Vol]23 U/IVnohbd06-35SjvLhlbquFostoria City HospitalComment on above: Performed By: #### CBCA, 1798-8, 5643-2, 3040-3, CMP #### [facility] ([id number]) [address] [place] [address], [address] [place], [place] [address]Euwjjdtjgy - Chemistry and Chemistry - challengeon 08-17-2024 Calcium [Mass/Vol]8.8 mg/dL8.5-10.1FTrinity Health SystemChloride [Moles/Vol]107 mmol/Q77-332FauqagqizSelect Medical Ohiohealth Rehabilitation Hospital - DublinCO2 [Moles/Vol]26.3 mmol/L21.0-32.0[facility] - DublinCreatinine [Mass/Vol]0.98 mg/dL 0.55-1.02[facility] - DublinGFR/1.73 sq M.predicted MDRD (S/P/Bld) [Vol rate/Area]mL/min/{1.73_m2}>=60 mL/min/1.73m 2FTrinity Health SystemGlucose [Mass/Vol]129 mg/aGZfqp64-574NpzgcudyhSelect Medical [facility] Rehabilitation Hospital - Dublin Potassium [Moles/Vol]3.8 mmol/L3.5-5.1FOhioHealth Mansfield Hospitalodium [Moles/Vol]143 mmol/M209-586PbctgwwomSelect Medical Ohiohealth Rehabilitation Hospital - DublinUrea nitrogen [Mass/Vol]16.0 mg/dL7.0-18.0[facility] - DublinUrea nitrogen/Creatinine [Mass ratio]16.3 mg/mgSelect Medical [facility] Rehabilitation Hospital - Dublin Laboratory - Hematology and Cell countson 03-28-9847Tynitomjnat/100 WBC (Bld) 27.0 %20.5-60.0[facility] - DublinMonocytes/100 WBC (Bld)4.0 % 1.7-12.0[facility] - DublinLeukocytes [#/volume] corrected for nucleated erythrocytes in Blood by Automated counon 52-70-3510SRB corrected for nucl RBC Auto (Bld) [#/Vol]Leukocytes [#/volume] corrected for nucleated erythrocytes in Blood by Automated coun4.0-11.0[facility] MCH Auto (RBC) [Entitic mass]on 55-97-6649BCF (RBC) [Entitic mass]MCH [Entitic mass] by Automated count26.7-34.0[facility] - DublinMCHC Auto (RBC) [Mass/Vol]on 97-53-6588PILV (RBC) [Mass/Vol]MCHC [Mass/volume] by Automated count29.9-35.2FTrinity Health SystemMCV Auto (RBC) [Entitic vol]on 34-15-8011ZYE (RBC) [Entitic vol]MCV [Entitic volume] by Automated count High81.0-99.0[facility] - DublinNo Panel Informationon 08-17-2024 Absolute Basophils (Manual)0.00 10 3/uL0.00-0.10[facility] - DublinEosinophils # (Manual)0.00 10 3/uL0.00-0.70[facility] - DublinLymphocytes # (Manual)2.48 10 3/uL1.20-3.80[facility] - DublinMonocytes # (Manual)0.36 10 3/uL0.30-0.80[facility] Segmented Neutrophils # (Manual)6.34 10 3/uL1.4-6.5FTrinity Health SystemTroponin I High Sensitivity8.2 pg/mL4.0-51.3FTrinity Health SystemComment on above:CUT-OFF POINTS HAVE BEEN ESTABLISHED BASED ON THE FOURTHUNIVERSAL DEFINITION OF MYOCARDIAL INFARCTION. THE UPPERREFERENCE LIMIT (URL) OF TROPONIN, DEFINED THE 99THPERCENTILE OF cTnI DISTRIBUTION IN A REFERENCE POPULATION,HAS BEEN CONFIRMED THE DECISION THRESHOLD FOR MIDIAGNOSIS.99TH PERCENTILE = 51.4 PG/MLNOTE: HIGH-SENSITIVITY TROPONIN ASSAY IS NOT INTENDED TO BEUSED IN ISOLATION BUT SHOULD BE INTERPRETED IN CONJUNCTIONWITH OTHER DIAGNOSTIC AND CLINICAL INFORMATION.Platelet mean volume Auto (Bld) [Entitic vol]on 18-17-1823Cxxssdkk mean volume (Bld) [Entitic vol]Platelet mean volume [Entitic volume] in Blood by Automated count9.5-13.5FTrinity Health SystemPlatelets Auto (Bld) [#/Vol]on 76-55-6328Bjgcxifoe (Bld) [#/Vol] Platelets [#/volume] in Blood by Automated ispni356-278NpzgjuscdSelect Medical Ohiohealth Rehabilitation Hospital - DublinRBC Auto (Bld) [#/Vol]on 07-29-3753BEZ (Bld) [#/Vol]Erythrocytes [#/volume] in Blood by Automated countLow4.20-5.40Magruder Memorial Hospitalegmented neutrophils/100 WBC Manual cnt (Bld)on 09-49-8843Vxexussyw neutrophils/100 WBC (Bld)Manual blood segmented neutrophils/100 leukocytes 43.0-75.0Magruder Memorial Hospitalerum or plasma anion gap determinationon 36-09-8828Grnyj gap [Moles/Vol]Serum or plasma anion gap determinationSelect Medical Ohiohealth Rehabilitation Hospital - DublinXR CHEST 1 VWon 89-22-4529CP CHEST 1 VWXR CHEST 1 VW EXAM: XR CHEST 1 VW CLINICAL INFORMATION: trauma. COMPARISON: None. FINDINGS: There are no pleural effusions. The lungs are clear and well aerated. Heart size is within normal limits. There are postsurgical changes of the left upper quadrant. IMPRESSION: 1. No acute cardiopulmonary disease. Finalized by Odilon Bailon MD on 08/17/2024 6:12 PMNormalProSelect Medical Ohiohealth Rehabilitation Hospital - Dublinca Mansfield HospitalXR PELVIS 1 OR 2 VWSon 44-61-2462JH PELVIS 1 OR 2 VWSXR PELVIS 1 OR 2 VWS Clinical history: Pelvic pain. Trauma. Pelvis: 08/17/2024 COMPARISON: None FINDINGS: A frontal view of the pelvis was obtained. Portions of the left iliac crest and greater trochanter are omitted. No focal osseous abnormality is evident. Degenerative changes are present in the sacroiliac joints and hips. IMPRESSION: No acute osseous abnormality evident radiographically. Finalized by Rulsan Walls MD on 08/17/2024 6:11 PMNormalProMedica Mansfield HospitalUrine Cultureon 93-20-8537Rgevdesv identified Cx Nom (U)30,000 colonies/ml mixed bacterial skin contaminants including mixed gram negative bacilli - 2 Days PERFORMED BY: [address] [place] [address] PATHOLOGIST EXCEPTIONAL STUDENT EDUCATION TEACHER ZAIDA ONTIVEROS M.D.NormalThe [facility] Point Physician GroupComment on above: Performed By: #### CUU #### [address] StreetUrine cultureOrdered By: Maryan Mcwilliams on 91-91-5712Odjnpkvi identified Cx Nom (U)Urine cultureSelect Medical Ohiohealth Rehabilitation Hospital - DublinActivated partial thromboplastin time (aPTT) in platelet poor plasma by coagulation aon 05-86-0151yXVF Coag (PPP) [Time]30.5 s22.3-36.2FTrinity Health System aPTT Coag (PPP) [Time]Activated partial thromboplastin time (aPTT) in platelet poor plasma by coagulation a22.3-36.2FTrinity Health SystemBasophils Auto (Bld) [#/Vol]on 14-32-1150Lizyskfyy (Bld) [#/Vol]0.0 10 3/uL0.0-0.1 [facility] - DublinBasophils (Bld) [#/Vol]Automated basophil count 0.0-0.1FTrinity Health SystemBasophils/100 WBC Auto (Bld)on 54-92-9913Wkjjzcqyb/100 WBC (Bld)0.7 %0.2-2.0[facility] Basophils/100 WBC (Bld)Automated basophil %0.2-2.0[facility] - DublinEosinophils/100 WBC Auto (Bld)on 01-68-3784Jhndjhsvhgi/100 WBC (Bld)3.8 % 0.9-7.0[facility] - DublinEosinophils/100 WBC (Bld)Automated eosinophil %0.9-7.0[facility] - DublinErythrocyte distribution width Auto (RBC) [Ratio]on 45-34-6623Eknodyyxxug distribution width (RBC) [Ratio]14.4 %11.0-15.0[facility] - DublinErythrocyte distribution width (RBC) [Ratio]Erythrocyte distribution width [Ratio] by Automated count 11.0-15.0[facility] - DublinEstimated glomerular filtration rate (GFR) non- Americanon 60-52-1864FPP/1.73 sq M.predicted among non-blacks MDRD (S/P/Bld) [Vol rate/Area]51 mL/min/{1.73_m2}Low>=60 mL/min/1.73m 2FTrinity Health SystemGFR/1.73 sq M.predicted among non-blacks MDRD (S/P/Bld) [Vol rate/Area]Estimated glomerular filtration rate (GFR) non- Low>=60 mL/min/1.73m [address] [place], [place] [address]Globulin Calc (S) [Mass/Vol]on 10-69-1129Iwdkuylt (S) [Mass/Vol]4.3 g/dLSelect Medical [facility] Hospital - DublinGlobulin (S) [Mass/Vol]Serum globulin measurement by calculation (mass/volume)[facility] DublinHematocrit Auto (Bld) [Volume fraction]on 35-33-4245Pvluiayfik (Bld) [Volume fraction]39.1 %36.0-48.0[facility] DublinHematocrit (Bld) [Volume fraction]Hematocrit [Volume Fraction] of Blood by Automated count36.0-48.0[facility] Hemoglobin [Mass/volume] in Bloodon 11-90-8833Dlgjovarrf (Bld) [Mass/Vol]13.1 g/dL12.0-16.0[facility] DublinHemoglobin (Bld) [Mass/Vol] Hemoglobin [Mass/volume] in Blood12.0-16.0[facility] DublinINR in Platelet poor plasma by Coagulation assayon 48-30-7766WGZ Coag (PPP) [Relative time]1.07 {INR}[facility] DublinComment on above: DESIRED INR:2.0-3.0 CONDITIONS NOT LISTED BELOW2.5-3.5 FOR PROSTHETIC HEART VALVE REPLACEMENT2.5-3.5 RECURRENT THROMBOSISINR Coag (PPP) [Relative time]INR in Platelet poor plasma by Coagulation assaySelect [facility] Comment on above:DESIRED INR:2.0-3.0 CONDITIONS NOT LISTED BELOW2.5-3.5 FOR PROSTHETIC HEART VALVE REPLACEMENT2.5-3.5 RECURRENT THROMBOSISLaboratory - Chemistry and Chemistry - challengeon 56-70-4718Dqoatvoix Ql (U)NegativeNEGATIVE [facility] DublinGlucose (U) [Mass/Vol]NegativeNEGATIVESelect Medical [facility] - DublinKetones Ql (U)NegativeNEGATIVESelect Medical [facility] DublinpH (U)6.0 [pH]5.0-9.0[facility]uder Memorial Hospitalpecific gravity (U) [Rel density]1.0201.005-1.025[facility] DublinUrobilinogen Qn (U)0.2 {Diana'U}/dL0.2-1.0[facility] DublinAlbumin [Mass/Vol]2.9 g/dLLow3.4-5.0[facility] DublinALP [Catalytic activity/Vol]196 U/QXnwr34-151JipxjtkxbSelect Medical [facility] DublinALT [Catalytic activity/Vol]44 U/I06-33HyqxurcmgSelect Medical [facility] DublinAST [Catalytic activity/Vol]51 U/JGpgz25-61XxdlabmlwSelect Medical [facility] DublinBilirubin [Mass/Vol]0.7 mg/dL0.2-1.0[facility] DublinBilirubin.direct [Mass/Vol]0.2 mg/dL0.0-0.2FTrinity Health SystemCalcium [Mass/Vol]9.1 mg/dL8.5-10.1FTrinity Health SystemChloride [Moles/Vol]107 mmol/L 98-107[facility] DublinCO2 [Moles/Vol]25.8 mmol/L21.0-32.0 [facility] DublinCreatinine [Mass/Vol]1.05 mg/dLHigh0.55-1.02 [facility] DublinGFR/1.73 sq M.predicted MDRD (S/P/Bld) [Vol rate/Area]mL/min/{1.73_m2}>=60 mL/min/1.73m 2FTrinity Health System Glucose [Mass/Vol]84 mg/mF55-486KfmrhgcnkSelect Medical [facility] DublinPotassium [Moles/Vol]3.7 mmol/L3.5-5.1FTrinity Health SystemProtein [Mass/Vol] 7.2 g/dL6.4-8.2FOhioHealth Mansfield Hospitalodium [Moles/Vol]143 mmol/L 136-145[facility] DublinUrea nitrogen [Mass/Vol]20.0 mg/dLHigh 7.0-18.0[facility] DublinUrea nitrogen/Creatinine [Mass ratio] 19.0 mg/mgSelect Medical [facility] DublinLaboratory - Hematology and Cell countson 22-35-0028Uatxwbln granulocytes/100 WBC (Bld)0.2 %0.0-0.5FTrinity Health SystemLaboratory - Specimen informationon 03-51-1859Ozyzbjqvrj (U)CLEARCLEARFTrinity Health SystemColor (U)YELLOWYELLOWSelect Medical [facility] DublinLaboratory - Urinalysison 61-96-9333Hedhbqzoz esterase Test strip Ql (U)NegativeNEGATIVESelect Medical [facility] - DublinNitrite Ql (U) NegativeNEGATIVESelect Medical [facility] DublinProtein Ql (U)NegativeNEG/TRACE [facility] DublinLeukocytes [#/volume] corrected for nucleated erythrocytes in Blood by Automated counon 86-65-4748UJV corrected for nucl RBC Auto (Bld) [#/Vol]4.5 10 3/uL4.0-11.0[facility] DublinWBC corrected for nucl RBC Auto (Bld) [#/Vol]Leukocytes [#/volume] corrected for nucleated erythrocytes in Blood by Automated coun4.0-11.0[facility] DublinLymphocytes Auto (Bld) [#/Vol]on 50-15-3155Uyuibhuzcyg (Bld) [#/Vol]2.0 10 3/uL1.2-3.8[facility] DublinLymphocytes (Bld) [#/Vol]Lymphocytes [#/volume] in Blood by Automated count1.2-3.8[facility] DublinLymphocytes/100 WBC Auto (Bld)on 05-01-2024 Lymphocytes/100 WBC (Bld)43.8 %20.5-60.0[facility] Lymphocytes/100 WBC (Bld)Lymphocytes/100 leukocytes in Blood by Automated count 20.5-60.0[facility] Auto (RBC) [Entitic mass]on 57-41-5730FGE (RBC) [Entitic mass]34.5 nsPzif10.7-34.0[facility] (RBC) [Entitic mass]MCH [Entitic mass] by Automated oxsacEvht55.7-34.0 [facility]HC Auto (RBC) [Mass/Vol]on 50-88-4450ZWFB (RBC) [Mass/Vol]33.5 g/dL29.9-35.2FMercer County Community HospitalHC (RBC) [Mass/Vol]MCHC [Mass/volume] by Automated count29.9-35.2FMercer County Community HospitalV Auto (RBC) [Entitic vol]on 12-88-6529TVQ (RBC) [Entitic vol] 102.9 zVAlsh23.0-99.0[facility] HospitalV (RBC) [Entitic vol]MCV [Entitic volume] by Automated jdekvZvsl89.0-99.0[facility] DublinMonocytes Auto (Bld) [#/Vol]on 61-53-6183Lwmlpjywp (Bld) [#/Vol]0.6 10 3/uL0.3-0.8[facility] DublinMonocytes (Bld) [#/Vol]Automated blood monocyte count0.3-0.8[facility] DublinMonocytes/100 WBC Auto (Bld)on 10-53-0536Ckbgcbrlr/100 WBC (Bld)13.8 %High1.7-12.0[facility] DublinMonocytes/100 WBC (Bld)Automated monocyte %High1.7-12.0 [facility] DublinNeutrophils Auto (Bld) [#/Vol]on 05-01-2024 Neutrophils (Bld) [#/Vol]1.7 10 3/uL1.4-6.5FTrinity Health System Neutrophils (Bld) [#/Vol]Neutrophils [#/volume] in Blood by Automated count 1.4-6.5FTrinity Health SystemNeutrophils/100 WBC Auto (Bld)on 90-16-8515Gducqeuxnto/100 WBC (Bld)37.7 %Low43.0-75.0[facility] DublinNeutrophils/100 WBC (Bld)Automated neutrophil %Low43.0-75.0[facility] DublinNo Panel Informationon 81-85-1350Lcwdz Microscopic Review NOSelect Medical [facility] - DublinUrine Occult BloodNegativeNEGATIVESelect Medical [facility] DublinEosinophils # (Auto)0.2 10 3/uL0.0-0.7FTrinity Health SystemImmature Granulocyte # (Auto)0.01 10 3/uL0.00-0.03[facility] DublinNo Panel InformationOrdered By: Johny Perdomo on 49-29-9024VARN Screening CultureSelect Medical [facility] Hospital - DublinPlatelet mean volume Auto (Bld) [Entitic vol]on 15-10-0163Tqwzrifr mean volume (Bld) [Entitic vol]12.6 fL9.5-13.5FTrinity Health SystemPlatelet mean volume (Bld) [Entitic vol]Platelet mean volume [Entitic volume] in Blood by Automated count 9.5-13.5FTrinity Health SystemPlatelets Auto (Bld) [#/Vol]on 48-91-7552Rggmlpflc (Bld) [#/Vol]266 10 3/eE127-133AabchtpmlSelect Medical [facility] Hospital - DublinPlatelets (Bld) [#/Vol]Platelets [#/volume] in Blood by Automated count 150-450[facility] DublinProthrombin time (PT)on 80-82-7590PM Coag (PPP) [Time]11.3 s9.0-11.6FTrinity Health SystemPT Coag (PPP) [Time]Prothrombin time (PT)9.0-11.6FTrinity Health SystemRBC Auto (Bld) [#/Vol]on 21-19-9239XXD (Bld) [#/Vol]3.80 10 6/uLLow4.20-5.40[facility] DublinRBC (d) [#/Vol]Erythrocytes [#/volume] in Blood by Automated countLow.20-.Mag[facility]uder Memorial Hospitalerum or plasma albumin/globulin mass ratioon 57-84-9158Mxtitff/Globulin [Mass ratio]0.7 {ratio} [facility] DublinAlbumin/Globulin [Mass ratio]Serum or plasma albumin/globulin mass ratioMagruder Memorial Hospitalerum or plasma anion gap determinationon 05-57-8569Dhevs gap [Moles/Vol]13.9 mmol/LFTrinity Health SystemAnion gap [Moles/Vol]Serum or plasma anion gap determinationSelect Medical [facility] Hospital - DublinC Urineon 16-79-1705Dxvmmeup identified Cx Nom (U)Microbiology PROCEDURE: Urine Culture [R1] SOURCE: U CleanCatch [...] Locations R1: This test was performed at: [facility], [address] [place] [address], [facility] , , FprmtjOdfrpjProtestant HospitalComment on above:Performed By: #### [id number] #### [facility] [address] [place] [address]Wzqehykphh Visit Summaryon 65-39-7430Vylatwlpgn Visit Summary Ambulatory Visit Summary DAMON KANRubén Felicia :1945 Visit Date:01/15/2024 Ambulatory Visit Instructions Your [...] Carrera, URO When: Where: [address] [place] [address] [id number] Medications What How Much When Instructions Unchanged estradiol topical (Estrace 0.1 mg/ g Cream) See instructions Apply pea-sized amound around the opening of the urethra 3 times per week for 1 month then 2 times per week after for maintenance. Pickup at [facility] Unchanged biotin (biotin 5000 mcg oral capsule) Contact prescribing physician if questions or concerns Unchanged cholecalciferol (Vitamin D3 5000 intl units oral capsule) 1 Capsules By Mouth Every day with food Contact prescribing physician if questions or concerns Unchanged fexofenadine (Mary) By Mouth Contact prescribing physician if questions or concerns Pharmacy Information [facility]: [address] [place], [place] [phone] Allergies codeine (nausea) Problems Ongoing - Any [...] your vaginal area. Keep your stomach, buttocks, andlegs relaxed. 2. Hold the muscles tight for [...] is not intended to (more content not included)...[facility] HospitalUrology Office/Clinic Noteon 42-63-9147Xzzspxe Office/Clinic NoteUrology Office/Clinic Note Chief Complaint 11 month follow [...] treated prior to proceeding. States she only gavea drop for urine sample today, not enough [...] urgency only after sitting in chair for extendedperiod of time then getting up. Still reports [...] slightly hyperdense lesion within medial mid body ofleft kidney. Has remained grossly stable over the [...] Information Gage JACOB, Katie Arteaga, URL, [facility] [address], [place] [address] [phone] Additional Instructions: pt's choice on when to [...] of gallbladder Hyperparathyroidism Osteopeni (more content not included)...[facility] HospitalComment on above:Result Comment: Electronically Signed By: Katie Almonte MD\.br\Date and Time Signed: 01/15/24 23:28EDT\.br\Electronically Co-Signed By: Yuliana Olson\.br\Date and Time Co-Signed: 01/15/24 11:27 EDTScreenson 11-01-6321Dmrjozd [id number]#1.00CD:127NoOur Lady of Mercy Hospital - AndersonPatient Educationon 26-18-0502Rzmooyb EducationObstetrics and Gynecology Urinary Tract Infection, Adult A urinary tract infection (UTI) is an infection of any part of the urinary tract. The urinary tractincludes: ? The kidneys. ? The ureters. ? [...] these instructions at home: Medicines ? Take laog-foe-mmdwpyw and prescription medicines only as told by your doctor. ? If you were prescribed an antibiotic medicine, take it as told by your doctor. Do not stop takingit even if you start to feel better. [...] provider. Document Revised: 02/10/2021 Document Reviewed: 02/10/2021 [employer] Patient Education ? 2022 [employer].[facility] Office/Clinic Noteon 14-87-7857Ffvoqbo Office/Clinic NoteChief Complaint 6M follow up HPI Staff 6m. [...] or if sxs become bothersome. Declines at thistime. Pt is currently using Estrace cream. Pt [...] slightly hyperdense lesion within medial mid body ofleft kidney. Has remained grossly stable over the [...] performing a medical exam (more content not included)...[facility] Comment on above:Result Comment: Electronically Signed By: Katie Almonte MD\.br\Date and Time Signed: 02/20/23 12:03EDT\.br\Electronically Co-Signed By: Sepideh Perez\.br\Date and Time Co-Signed: 02/20/23 11:49 EDTCovid-19 PCR (CVDTB)on 11-45-4342JLXT-CoV-2 (COVID-19) RNA AZUL+probe Ql (Unsp spec)Not detectedNormalNOT DETECTEDThe [facility] Children[facility]S Medical CenterComment on above:Result Comment: This test is not yet approved or cleared by the [place] FDA. When there are no FDA-approved or cleared tests available, and other criteria are met, FDA can make tests available under an emergency access mechanism called an Emergency Use Authorization (EUA). The EUA for this test is supported by the Journalists [employer] Other Writers of Health and Human Service's (HHS's) declaration [...] of clinical signs and symptoms consistent with SARS-CoV-2.Performed By: #### CVDTB #### [facility] [address] [place] [address] Dr. Manjula FerrisATININEon 99-09-3976Gucoqvazbn [Mass/Vol]0.98 mg/dLNormal 0.55-1.02[facility], BeachwoodComment on above:Performed By: #### CREA #### [facility] [address] [place] [address] Dr. Fair ChangEGFR-AF ALGERIAN>60Normal>=60[facility] on above:Performed By: #### CREA #### [facility] [address] [place] [address] Dr. Manjula KrugerGFR-NON AF BVMEJBJT34 mL/min/1.34d4Lwkaimjagi low>=60[facility] on above:Performed By: #### CREA #### [facility] [address] [place] [address] Dr. Manjula ArzateCT ABD/PELV W CONon 56-31-6015EY ABD/PELV W CONEXAMINATION: CT ABD/PELV W CON HISTORY: Renal mass [...] Electronically authenticated by: DARIO BESS Date: 2022-06-13 17:[address] [place] [address] ABD/PELVIS WO CONon 52-22-8674HY ABD/PELVIS WO CON EXAMINATION: CT ABD/PELVIS WO [...] Electronically authenticated by: DARIO BESS Date: 2021-11-27 10:[address] [place] [address] Vital Signs Date TimeVital SignValuePerforming CedalxulkQczhaagw68-63-1509 11:44-0400Body .1 cmHarlan Knowles MD Work Phone: [phone]09-25-2025 11:44-0400 Body mass index (BMI) [Ratio]29.5 kg/f2VmnhgpHarlan Knowles MD Work Phone: [phone]09-25-2025 11:44-0400 Body jzeaozptfyn80.5 [degF]Harlan Knowles MD Work Phone: [facility]09-25-2025 11:44-0400 Body attpyt11.51 kgHarlan Knowles MD Work Phone: [phone]09-25-2025 11:44-0400 Diastolic blood hfhksdsi92 mm[Hg]Harlan Knowles MD Work Phone: [phone]09-25-2025 11:44-0400 Heart rate72 /minHarlan Knowles MD Work Phone: [facility]09-25-2025 11:44-0400 Systolic blood fqhiplrh143 mm[Hg]Harlan Knowles MD Work Phone: [phone]08-11-2025 13:17-0400 Body lmhxev210.1 cmHarlan Knowles MD Work Phone: [phone] [place], [place] [address]903308-11-2025 13:17-0400 Body mass index (BMI) [Ratio]31.4 kg/q1BjufyuHarlan Knowles MD Work Phone: [phone]08-11-2025 13:17-0400 Body susgtlcjzaa05.9 [degF]Harlan Knowles MD Work Phone: [phone] [place], [place] [address]903308-11-2025 13:17-0400 Body hviwcq73.72 kgHarlan Knowles MD Work Phone: [phone] [place], [place] 7903308-11-2025 13:17-0400 Diastolic blood cxvyyzta79 mm[Hg]Harlan Knowles MD Work Phone: [phone])[address] [place], [place] 7903308-11-2025 13:17-0400 Heart rate76 /Addison Knowles MD Work Phone: [phone] [place], [place] 7903308-11-2025 13:17-0400 Respiratory rate14 /Addison Knowles MD Work Phone: [phone] [place], [place] 7903308-11-2025 13:17-0400 SaO2% (BldA) [Mass fraction]97 %Harlan Knowles MD Work Phone: [phone] [place], [place] 7903308-11-2025 13:17-0400 Systolic blood ehvskrkf916 mm[Hg]Harlan Knowles MD Work Phone: [phone] [place], [place] [address]903[address]-06-2025 08:55-0400 Body ajgspj043.1 cmHarlan Knowles MD Work Phone: [phone] [place], [place] [address]-06-2025 08:55-0400 Body mass index (BMI) [Ratio]31.1 kg/i9HolkmjHarlan Knowles MD Work Phone: [phone]08-06-2025 08:55-0400 Body sihozg26.04 kgHarlan Knowles MD Work Phone: [phone]08-06-2025 08:55-0400 Diastolic blood mm[Hg]Harlan Knowles MD Work Phone: [phone])[address]08-06-2025 08:55-0400 Heart rate71 /Addison Knowles MD Work Phone: [phone]08-06-2025 08:55-0400 Systolic blood wlzjutbx246 mm[Hg]Harlan Knowles MD Work Phone: [phone])[address]07-16-2025 10:04-0400 Body agkpce228.1 cmHarlan Knowles MD Work Phone: [phone]07-16-2025 10:04-0400 Body mass index (BMI) [Ratio]31.6 kg/v0OibiceHarlan Knowles MD Work Phone: [phone]07-16-2025 10:04-0400 Body llbwux09.29 kgHarlan Knowles MD Work Phone: [phone])[address]07-16-2025 10:04-0400 Diastolic blood mm[Hg]Harlan Knowles MD Work Phone: [phone])[address]07-16-2025 10:04-0400 Heart rate72 /Addison Konwles MD Work Phone: [phone])[address]07-16-2025 10:04-0400 Respiratory rate12 /Addison Knowles MD Work Phone: [phone]07-16-2025 10:04-0400 SaO2% (BldA) [Mass fraction]98 %Harlan Knowles MD Work Phone: [phone]07-16-2025 10:04-0400 Systolic blood ddjcafpb304 mm[Hg]Harlan Knowles MD Work Phone: [phone])[address]06-05-2025 13:01-0400 Body idtmpm080.1 cmSelect [facility]06-05-2025 13:010400Body mass index (BMI) [Ratio]31.1 kg/j9CurgrocnsSelect Medical [facility]06-05-2025 13:040Body .93 kgSelect Medical [facility]06-05-2025 13:010400Diastolic blood iahxarrv18 mm[Hg][facility] 12-17-2024 13:040Heart rate71 /minSelect Medical [facility] 12-17-2024 13:01040Systolic blood oztzkyyu251 mm[Hg][facility]03-27-2025 13:42-0400Body hrwzey779.2 cmDutch [place] MD Work Phone: [facility] Blzhda07-07-6975 13:42-0400Body mass index (BMI) [Ratio]28.81 kg/o3MvmxdlkDutch [place]sworth MD Work Phone: [facility] Yjhfjx91-48-9733 13:42-0400Body xxystf62.46 kgDutch [place] MD Work Phone: [facility] Hakqfh74-75-0888 12:51-0400Body mgqvuw458.2 cmKelsi Mici PA-C Work Phone: [facility] Nbuxxt22-82-8773 12:51-0400Body mass index (BMI) [Ratio]30.23 kg/g1Jfrzd Mici PA-C Work Phone: [facility] Ulegcr20-89-5414 12:51-0400Body .54 kgKelsi Mici PA-C Work Phone: [facility] [employer] Iovkvc85-29-4778 12:51-0400Diastolic blood jikzaipn59 mm[Hg]Maddie Mici PA-C Work Phone: [facility] Zyvtqi61-98-3429 12:51-0400Heart rate 82 /minKelsi Mici PA-C Work Phone: [phone] 3dMer[facility] CenterBe[facility] Bckhdj13-50-9102 12:51-8975FuX5% (BldA) [Mass fraction]98 %Maddie Mici PA-C Work Phone: [facility]03-18-2025 12:51-0400Systolic blood hoedqzmz939 mm[Hg]Maddie Mici PA-C Work Phone: [facility]02-19-2025 11:08-0500Body ckobkv995.1 cmMaryan Mcwilliams MD Work Phone: [phone]02-19-2025 11:08-0500 Body mass index (BMI) [Ratio]31.9 kg/q2OvcdcaMaryan Mcwilliams MD Work Phone: [phone]02-19-2025 11:08-0500 Body krgjyo03.08 kgMaryan Mcwilliams MD Work Phone: [phone]02-19-2025 11:08-0500 Diastolic blood vwkfspza15 mm[Hg]Maryan Mcwilliams MD Work Phone: [phone])[address]02-19-2025 11:08-0500 Heart rate78 /minMaryan Mcwilliams MD Work Phone: [phone]02-19-2025 11:08-0500 Systolic blood mm[Hg]Maryan Mcwilliams MD Work Phone: [phone]01-02-2025 08:56-0500 Body gsvilh696.1 cmMaryan Mcwilliams MD Work Phone: [phone]01-02-2025 08:56-0500 Body mass index (BMI) [Ratio]34.4 kg/s4QpambhMaryan Mcwilliams MD Work Phone: [phone]01-02-2025 08:56-0500 Body oxohpo91.89 kgMaryan Mcwilliams MD Work Phone: [phone]01-02-2025 08:56-0500 Diastolic blood hbzvuxwq80 mm[Hg]Maryan Mcwilliams MD Work Phone: [phone]01-02-2025 08:56-0500 Heart rate83 /minMaryan Mcwilliams MD Work Phone: [facility]01-02-2025 08:56-0500 Systolic blood jearhrya383 mm[Hg]Maryan Mcwilliams MD Work Phone: [facility]11-27-2024 15:24-0500 Body atvacj939.6 cmZaida Child MD Work Phone: [phone]11-27-2024 15:24-0500Body mass index (BMI) [Ratio]32.28 kg/e9VzucymtZaida Child MD Work Phone: [phone])[facility]11-27-2024 15:24-0500Body aurzyz93.72 kgZaida Child MD Work Phone: [phone])[facility]11-27-2024 15:24-0500Diastolic blood aflrgtmq91 mm[Hg]Zaida Child MD Work Phone: [phone])[facility]11-27-2024 15:24-0500Systolic blood enhduhyq162 mm[Hg]Zaida Child MD Work Phone: [phone]11-14-2024 11:08-0500Body .6 cmZaida Child MD Work Phone: [phone])[facility]11-14-2024 11:08-0500Body mass index (BMI) [Ratio]33.09 kg/u7TqwriuzZaida Child MD Work Phone: [phone]11-14-2024 11:08-0500Body itzpyufmocj91.39 [degF]Zaida Child MD Work Phone: [phone])[facility]11-14-2024 11:08-0500Body .99 kgZaida Child MD Work Phone: [phone]11-14-2024 11:08-0500Diastolic blood mm[Hg]Zaida Child MD Work Phone: [phone])[facility]11-14-2024 11:08-0500Heart rate 72 /Mike Child MD Work Phone: [phone]11-14-2024 11:08-4306OtK5% (BldA) [Mass fraction]97 %Zaida Child MD Work Phone: [phone]11-14-2024 11:08-0500Systolic blood uzdjgpfz366 mm[Hg]Zaida Child MD Work Phone: [phone])[facility]11-05-2024 11:18-0500Body chsqyz596.1 cmSelect [facility]11-05-2024 11:18-0500Body mass index (BMI) [Ratio]33.1 kg/r2XjigzoycgSelect Medical [facility]11-05-2024 11:18-0500Body vkixej59.26 kgSelect Medical [facility]11-05-2024 11:18-0500Diastolic blood mrcdaenv46 mm[Hg][facility] 05-19-2024 11:18-0500Heart rate91 /[facility] 05-19-2024 11:18-0500Systolic blood ywjcnxjy326 mm[Hg][facility]10-24-2024 14:39-0400Body .[address] [facility] 05-07-2024 14:39-0400Body mass index (BMI) [Ratio]33.7 kg/c2YiizqthdeSelect Medical [facility]10-24-2024 14:39-0400Body bquqjx80.07 kgSelect Medical [facility]10-24-2024 14:39-0400Diastolic blood uaflbjad46 mm[Hg][facility]10-24-2024 14:39-0400Heart rate76 /[facility]10-24-2024 14:39-0400Systolic blood ycrqdtit613 mm[Hg][facility]10-16-2024 08:21-0400Body dnihfs863.[address] [facility]10-16-2024 08:21-0400Body mass index (BMI) [Ratio]33.8 kg/d1MeeelprsjSelect Medical [facility]10-16-2024 08:21-0400Body bbonih79.3 kgSelect [facility]10-16-2024 08:21-0400Diastolic blood bjyiyqdl36 mm[Hg][facility]10-16-2024 08:21-0400Heart rate74 /[facility]10-16-2024 08:21-0400Respiratory rate16 /[facility]10-16-2024 08:21-9430MbH1% (BldA) [Mass fraction]96 %[facility]10-16-2024 08:21-0400Systolic blood htqyoeyc670 mm[Hg] [facility]07-12-2024 10:54-0400Body tegbhj281.1 cm [facility]07-12-2024 10:54-0400Body mass index (BMI) [Ratio]35.6 kg/b4RjegizoozSelect Medical [facility]07-12-2024 10:54-0400Body zwyytb98.06 kgSelect Medical [facility]07-12-2024 10:54-0400Diastolic blood vpzliaev40 mm[Hg][facility]07-12-2024 10:54-0400 Heart rate71 /[facility]07-12-2024 10:54-0400Systolic blood qhsxvhuo662 mm[Hg][facility]07-03-2024 10:37-0400 Blood Pressure LocationKathy Lue [facility]07-03-2024 10:37-0400Body .88 [degF]Katie Lue [facility]07-03-2024 10:37-0400Diastolic blood azyeykfh19 mm[Hg]Katie Lue [facility]07-03-2024 10:37-0400Heart rate71 /minKathy Lue [facility]07-03-2024 10:37-0400Systolic blood gtkaboxo649 mm[Hg]Katie Lue [facility]08-09-2023 10:53-0400Blood Pressure LocationKathy Lue [facility]08-09-2023 10:53-0400Diastolic blood ftkhirsz75 mm[Hg]Katie Lue [facility]08-09-2023 10:53-0400Heart rate68 /minKathy Lue [facility]08-09-2023 10:53-0400Respiratory rate16 /minKathy Lue [facility]08-09-2023 10:53-0400Systolic blood mm[Hg]Katie Lue [facility]02-08-2023 11:50-0500Blood Pressure LocationKathy Lue [facility]02-08-2023 11:50-0500Diastolic blood nnxhwxam40 mm[Hg]Katie Lue [facility]02-08-2023 11:50-0500Heart rate68 /minKathy Lue [facility]02-08-2023 11:50-0500Respiratory rate16 /minKathy Lue [facility]02-08-2023 11:50-0500Systolic blood tycszhek143 mm[Hg]Katie Almonte [facility]05-24-2022 10:33-0400Diastolic blood spalthdn06 mm[Hg]Mally Key Jr. [facility] 05-24-2022 10:33-0400Mean blood rcukgurn415 mm[Hg] Mally Key Jr. [facility] 05-24-2022 10:33-0400Systolic blood mm[Hg] Mally Key Jr. [facility] 05-24-2022 10:12-0Blood Pressure LocationMally Key Jr. [facility] 05-24-2022 10:12-0Diastolic blood txylflcg63 mm[Hg] Mally Key Jr. [facility] 05-24-2022 10:120Heart rate87 /Radha Key Jr. [facility] 05-24-2022 10:120Respiratory rate16 /Radha Key Jr. [facility] 05-24-2022 10:12-0Systolic blood aedjfcjm080 mm[Hg] Mally Key Jr. [facility] Encounters Encounter DateEncounter TypeCare ProviderFacilityStart: 05-03-2025 End: 24-03-6231kqiqwzxpvnGXBNYQ BRAUNPromedica Flower Hospital HospitalStart: 05-03-2025 End: 58-09-5774Oqaxnrlkxw hospital visit by physicianMwh [facility] RadiologyComment on above:History of total knee replacement, right; Aftercare following right shoulder joint replacement surgeryStart: 05-03-2025 End: 13-59-4970pzcaxlawnkWIXOW J MATHEWSPromedica Flower Hospital HospitalStart: 05-03-2025 End: 22-56-0875Shgiljvqtj hospital visit by physicianHarlan Knowles MD Work Phone: [facility] RadiologyStart: 04-08-2025 End: 86-00-7385Xeapfhfk ReferredHarlan Knowles MD-[facility] Work Phone: Start: 04-08-2025 End: 33-79-2024czdfvibuomQlhhpl E Braun MD Work Phone: [facility] Work Phone: Start: 04-08-2025 End: 46-64-8324Elcykmy encounter procedureHarlan Knowles MD-[facility] Work Phone: Start: 50-44-7366Xdn-patient / Non-visitOdilia Driscoll PA-C-[facility] Work Phone: Start: 03-04-2025 End: 02-24-4792bzaogoabcaPyaukMor Perdomo DOFacility:[facility] Start: 80-01-8591smwuskgpkqZdzsdkSujey Knowles MDFacility:[facility] Hospitaltart: 02-25-2025 End: 40-06-7618Wpicqzrzi encounterDutch Ellsworth MD Work Phone: [facility] NeuroSurgeryComment on above: clearanceStart: 02-22-2025 End: 32-50-4189bcfpdunutjVzmqzt E Braun MD Work Phone: [facility] Work Phone: Start: 02-22-2025 End: 47-92-4808Qqijsei encounter procedureAnthonyluis Polanco CAD [facility] Work Phone: Start: 81-88-8673Amtvuglmbhje Nikita Knowles MD Work Phone: [facility] Hospitaltart: 02-17-2025 End: 01-69-5409dmvjvcygrtVgnplj E Braun MD Work Phone: [facility] Work Phone: Start: 02-17-2025 End: 34-80-0389Abjuuxa encounter procedureHarlan Knowles MDUC Health Work Phone: Start: 02-17-2025 End: 43-59-8355Qmujpiulwkoo Nikita Knowles MDMagruder Memorial Hospitaltart: 57-82-7177Xlb-patient / Non-visitJohny Perdomo DO-[facility] Work Phone: Start: 01-27-2025 End: 35-75-8228avpzgqlfcgQvzfpp E Braun MD Work Phone: [facility] Work Phone: Start: 01-27-2025 End: 86-45-1382Mperifg encounter procedureHarlan Knowles MDUC Health Work Phone: Start: 01-21-2025 End: 60-41-5583nreyhoknlzUscors R. Ziebercility:Nikki HospitalStart: 01-20-2025 End: 92-10-3498Gyratqmpf encounterDutch Ellsworth MD Work Phone: [facility] NeuroSurgeryStart: 01-18-2025 End: 44-43-8313mtruygvozxRFPDJ J MATHEWSMerSt. Joseph's Hospital Health Centertart: 01-18-2025 End: 56-84-1541Mdijftoilu hospital visit by physicianMwh Additional [facility] RadiologyComment on above:Osteoarthritis of right knee, unspecified osteoarthritis typeStart: 01-13-2025 End: 36-55-8664hfklnrumtuMsmqa V. WestFacility:[facility] HospitalStart: 12-31-2024 End: 84-48-4365pvozlxxlvbCyyhe VPadilla WestFacility:[facility] HospitalStart: 12-17-2024 End: 42-51-7524utetdpbsjnVekpsfkozKettering Health [facility] Work Phone: Start: 12-17-2024 End: 06-60-3612Ynagfau encounter procedureC[facility] Work Phone: Start: 12-16-2024 End: 89-31-2859ocnpitckylMqgybp R. ZieberFacility:[facility] HospitalStart: 95-32-1907ntddygupanVsxqor R. ZieberFacility:[facility] HospitalStart: 10-27-2024 End: 81-13-4740Xavuoqvxp encounterKrcindy Gilliam [facility] Hospitalcarri Physicians NeuroSurgeryComment on above:ResultsStart: 10-13-2024 End: 99-47-9100eipfnjsawiQSZCEYZ C GABMonterey Park Hospital HospitalStart: 10-08-2024 End: 51-76-6522Qeipfb outpatient visit 15 minutesDutch Ellsworth MD Work Phone: [facility] NeuroSurgeryComment on above: Subdural hemorrhage (CMS-HCC) (Primary Dx)Start: 10-08-2024 End: 69-06-6323mjvvmvrpwrYQHFFZO C [facility] Ambulatory PPGStart: 10-06-2024 End: 12-40-0346wbfvkdpwjlOKXAUGM D KATKOProMedica Laurent HospitalStart: 09-29-2024 End: 68-18-6449Eicbmm outpatient visit 15 minutesMaddie Ramachandran PA-C Work Phone: [facility] CardiologyComment on above: Vasovagal syncope (Primary Dx)Start: 09-29-2024 End: 48-73-0552lswakkhbrdDTWFP MICIProMedica Hyndman HospitalStart: 09-28-2024 End: 12-23-2476Enxsfstgd encounterShelby Miner CMAProMedica Physicians CardiologyStart: 09-10-2024 End: 39-79-7677kjhlvpreefXDJEQJN C GABELMcCullough-Hyde Memorial Hospitaltart: 09-02-2024 End: 61-20-1333dfqvlmchxxDhkkyo Diab MD Work Phone: [facility] Work Phone: Start: 09-02-2024 End: 74-31-9331Fisvcui encounter Joelle Mcwilliams MD Work Phone: [facility] Work Phone: Start: 08-31-2024 End: 40-21-5972euunywgrlqLviedu E BraunFacility:[facility] HospitalStart: 08-27-2024 End: 31-51-7259Mcirhaeok encounterDutch Ellsworth MD Work Phone: [facility] NeuroSurgeryStart: 08-27-2024 End: 26-47-0015ixfdvhjhjbWXKW P BERNHARDProUSMD Hospital at Arlingtontart: 59-80-6427vozvtxpxqgGRDGYZJO SCHLOSSERMercy Memorial Hospital HospitalStart: 08-21-2024 Non-patient / Non-visitMaryan Mcwilliams MD Work Phone: [facility] Phys[facility] GroupUC Health Work Phone: Start: 08-20-2024 End: 72-40-0678Fzttbbucv encounterMaggie Kenney RNProMedcarri Physicians CardiologyComment on above:needs event monitor orderedStart: 08-18-2024 End: 78-07-0763RdoahnUxumfiy D Schak CAD 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 Work Phone: Start: 07-16-2024 End: 42-94-0353lcvkmilaeyBjfmkf Diab MD Work Phone: [facility] Work Phone: Start: 07-16-2024 End: 53-42-8821Zgckqxs encounter procedureMaryan Mcwilliams MD Work Phone: [facility] GroupUC Health Work Phone: Start: 61-42-1306Wjj-patient / Non-visitMaryan Mcwilliams MD Work Phone: [facility] GroupUC Health Work Phone: Start: 76-93-8355Cpr-patient / Non-visitMaryan Mcwilliams MD Work Phone: [facility] GroupBrown [facility] OutPt Work Phone: Start: 07-08-2024 End: 39-72-2408lquekeibedBezfeh A DiabFacility:[facility] Start: 07-08-2024 End: 13-65-3921Pwpnvekk ReferredMaryan Mcwilliams MD Work Phone: [facility] Ctr-LAB Path Spec [place] HospStart: 06-10-2024 End: 84-09-0782Csobti outpatient visit 15 minutesMoalise Child MD Work Phone: [facility] Jobst VascularComment on above: Superficial phlebitis and thrombophlebitis of right lower extremity (Primary Dx); Varicose veins of bilateral lower extremities with painStart: 06-10-2024 End: 22-50-8874oyemlluexwEKCBMLR F OSMANProMedica University Hospitals St. John Medical Centertart: 06-03-2024 End: 24-65-8786Enqbpe OnlyTraci Garfield Rodriguez [facility] Vascular Start: 05-28-2024 End: 38-60-5063Kipjoc outpatient new 30 minutesZaida Child MD Work Phone: [phone] Vascular SurgeryComment on above:Superficial phlebitis and thrombophlebitis of right lower extremity (Primary Dx); Right leg pain; Phlebitis and thrombophlebitis of unspecified site; Varicose veins of bilateral lower extremities with painStart: 05-19-2024 End: 58-86-7264qzdqkedpgoRigqzhlopMercy Health Clermont Hospital Work Phone: Start: 05-19-2024 End: 87-54-8872Hzobrwo encounter procedureC[facility] Work Phone: Start: 87-42-0900Ovl-patient / Non-visitCone Health [facility] Work Phone: Start: 05-07-2024 End: 30-19-9178wvekmobulsHhfmshwmwKettering Health Dayton Work Phone: Start: 05-07-2024 End: 74-52-1329Jzxqmjd encounter procedureC[facility]ician [facility] Work Phone: Start: 38-51-4039Xnw-patient / Non-visitC[facility] Health [facility] Work Phone: Start: 97-10-7101Mqe-patient / Non-visitMaryan Mcwilliams MD Work Phone: [facility] Work Phone: Start: 29-79-7813Hsvfryc encounter statusMagruder Memorial Hospitaltart: 56-31-2770Bowkrspiwmyjs examination Sienna Knowles MD Work Phone: [facility] Hospitaltart: 80-20-9350Jfl- patient / Non-visitCone Health [facility]ician [facility] Work Phone: Start: 04-29-2024 End: 55-47-3752iwtpgltyhnNjnncmtwrMercy Health Clermont Hospital Work Phone: Start: 04-29-2024 End: 32-76-7907Kzcumxudm for other preprocedural examinationMaryan Mcwilliams MD Work Phone: [facility] Hospitaltart: 04-29-2024 End: 36-57-9076Ybuojsf encounter procedureCone Health [facility] Physician GroupUC Health Work Phone: Start: 04-10-2024 End: 11-92-3196bodwvcetvbJsdcavSujey Knowles MDFacility:[facility] Hospitaltart: 05-43-4157tdqrrgoqzuOhdqe Jay Mathews DOFacility:[facility] Hospitaltart: 16-95-4623Gwzlxzu encounter [facility]tart: 01-24-2024 End: 55-20-9954ddnsnmhrfuSzhehhdagMercy Health Clermont Hospital Work Phone: Start: 01-24-2024 End: 37-72-9675Sfcznuf encounter procedureC[facility] Health [facility] Phys[facility] Work Phone: Start: 01-15-2024 End: 46-60-0689nnsohkxvppWhjal M. LueFacility:FTMCStart: 01-15-2024 End: 48-67-9485Bsc Drop offKatie Almonte [facility] Start: 01-15-2024 End: 94-34-3360ecfuoxxtsvPcljs M. LueFacility:EU BellevueStart: 01-15-2024 End: 11-46-8289Fcqvmwv encounter procedureKatie Almonte [facility] start: 08-01-2023 End: 88-36-6644ryfbvbzrpoKucotk Braun Other [facility] Other Start: 72-56-5715Zixpnhsef encounterHarlan Dhillon [facility] Hospitaltart: 07-30-2023 End: 45-85-5883miedpeqfnkHdsaaf Braun Other [facility] Other Start: 55-54-0111Ldxwvnpkk encounterHarlan Dhillon [facility] ClinicStart: 02-20-2023 End: 94-77-5827gbanlcehfqIodyl M. LueFacility:EU ueStart: 02-20-2023 End: 07-47-5349Lmqroxa encounter procedureKatie Almonte [facility] start: 08-22-2022 End: 26-09-6572Gsjkqxc encounter Nayla Almonte [facility] start: 08-01-2022 End: 98-28-0818vtgybetxxhAJ ANTWON BAKERFacility:C2Wnyvf: 07-30-2022 End: 00-78-8804wgyqfiaazeTG ANTWON BAKERFacility:P3Uzmjt: 51-31-1821Rtsfk health examinationHarlan Knowles Other [facility] Other Start: 06-13-2022 End: 10-67-4634fjskjuimbbHG HARLAN KNOWLESFacility:S1Dxcmp: 12-05-2021 End: 85-91-0972Pebtrxb encounter Kya Key Jr. [facility] start: 11-27-2021 End: 54-04-3143mwiitygxsqKJ MALLY KEY JRFacility:H1 Procedures DateProcedureProcedure DetailPerforming ClinicianStart: 29-02-7114Njhavotabb examination knee 3 viewsJohny Perdomo DO Work Phone: Start: 17-78-9653Tctsusnvmr exam knee complete 4/more viewsJohny Perdomo DO Work Phone: Start: 15-09-8815Ojgpys-up visitFollow-upDUTCH Davis GABELStart: 21-16-8900Oghit depression screening assessmentHola Alex CAD DRAFTSMAN-TELECASTING ENGINEER Work Phone: Start: 23-36-1978Zxfwd Eric Mcwilliams MD Work Phone: Start: 06-30-0142EUSX Screening CultureStart: 17-82-3927JahmjygjezvjtabBucvzi Smith Jr. start: 13-85-2223YiseejmomkxnfijqqSjnzqw Smith Jr. start: 49-09-6445Jnnbvlm examination of patientMarcia Benson Other Start: 54-57-1804Tutcoiwmxq test result abnormalMarcia Knowles Other Start: 83-88-4385Slfxxgttw mammographyMarcia Knowles Other Start: 66-29-3795QvptmljwbacOdsmue Smith Jr. start: 96-74-7367Zskcrg of breastMally Key Jr. start: 87-23-6080Lozma abdominal hysterectomy with bilateral salpingo-oophorectomyMally Key Jr. start: 83-60-8703VbddgeaifnfNwvjvg Smith Jr. bilateral cataracts (disorder)Mally Key Jr. ligation of fallopian tubeMally Key Jr. screening for malignant neoplasm of breastMarcia Knowles Other Plan of Treatment DateCare ActivityDetailAuthorStart: 35-05-9505Jrazepc ScreeningTobacco Screening [facility]ertart: 15-30-4224Liwkvmk ScreeningTobacco Screening [facility] Centertart: 44-25-7653Unukqlqwep ScreeningDepression Screening [facility] Centertart: 57-21-6681Tzfngkj ScreeningTobacco Screening [facility] Centertart: 86-96-7802Hhrkgqi ScreeningTobacco Screening [facility] Centertart: 76-23-2086Ocssits ScreeningTobacco Screening [facility] Centertart: 86-31-5784Ytuhffd CultureAerobic CultureMagruder Memorial Hospitaltart: 61-46-3760Pjnldrxmv CultureAnaerobic Culture [facility] Hospitaltart: 74-73-2276Natxtnamxzb observation [Identifier] in Unspecified specimen by Gram stainMagruder Memorial Hospitaltart: 42-80-4001UhsjlczgnMagruder Memorial Hospitaltart: 96-49-9684XNPHB- 19 Vaccine ( season)COVID-19 Vaccine ( season)[facility]Start: 62-11-0182Czsitjfee vaccinationInfluenza VaccineNovant Health Huntersville Medical Centertart: 02-12-1354Hnxqzsrgj vaccinationFlu vaccine (#1)Bon [facility] CincinnatiStsouth range: 50-25-6408Gmzcij Wellness Visit (Medicare)Annual Wellness Visit (Medicare)Bon [facility] CincinnatiStart: 10-13-2024 End: 42-93-2382Ltgybgv encounter afgpwxpdv25/01/2025 1:00 PM EDT Appointment [facility] [address] [place] [address] [phone] Lady of Mercy [facility] - CT ImagingStart: 10-08-2024 End: 79-41-8196TH Head WO contrastCT brain without contrast Imaging Routine Subdural hemorrhage (CMS-HCC) Expected: 10/08/2024, Expires: 10/08/2025[facility] Work Phone: Comment on above:Expected: 10/08/2024, Expires: 10/08/2025Start: 10-08-2024 End: 47-59-0361Gjgerye encounter riujblvkv89/27/2025 2:00 PM EDT Office Visit [facility] [address] [place] [address] Dutch Ellsworth MD [address] [place] [address] [facility] NeuroSurgeryStart: 09-29-2024 End: 87-39-0243Hbtcpos encounter rdtqqahmw80/18/2025 1:00 PM EDT Office Visit [facility] [address] [facility] [address] [place] [address] Maddie Ramachandran PA-C [address] [place] [address] [facility] CardiologyStart: 09-10-2024 End: 89-23-9398VB Head WO contrastCT brain without contrast Imaging Routine Subdural hemorrhage ([facility]CC) Expected: 09/10/2024 (Approximate), Expires: 08/27/2025[facility] Work Phone: Comment on above:Expected: 09/10/2024 (Approximate), Expires: 08/27/2025Start: 06-25-2024 End: 14-71-8455Svhooxj encounter fzjecaiku33/12/2024 9:20 AM EST Office Visit [facility] [address] [place] [address] Zaida Child MD [address], [facility] [address] [place] [address] [facility] SurgeryStart: 06-18-2024 End: 53-19-6202Sgsdkvc encounter ueottrkgm47/05/2024 10:20 AM EST Office Visit [facility] [address] [place] [address] Zaida Child MD [address], [address] [address] [facility] Vascular SurgeryStart: 68-59-3308Gionokf referralMagruder Memorial Hospital Work Phone: Start: 53-75-4974QQUIY-19 Vaccine ( season) COVID-19 Vaccine ( season)[facility] SystemStart: 07-20-2023 Tobacco ScreeningTobacco ScreeningProSelect Medical [facility] SystemStart: 2022 Respiratory Syncytial Virus (RSV) or age 60 yrs+ (1 - 1-dose 75+ series)Respiratory Syncytial Virus (RSV) or age 60 yrs+ (1 - 1-dose 75+ series)[facility] Hospitalart: 02-31-6226Efbx Risk ScreeningFall Risk ScreeningNovant Health Huntersville Medical Centertart: 94-16-1495Cnbvdulsd for osteoporosisDEXA (modify frequency per FRAX score)[facility]: 1964 DTaP,Tdap and Td Vaccines (1 - Tdap)DTaP,Tdap and Td Vaccines (1 - Tdap) [facility] Centertart: 13-92-4780HTvK/Tdap/Td vaccine (1 - Tdap) DTaP/Tdap/Td vaccine (1 - Tdap)[facility]Start: 1965 Hepatitis C screeningHepatitis C screenBon [facility] Centerart: 1959 Depression ScreenDepression ScreenBon [facility]: 1957 Depression ScreeningDepression ScreeningUniversity Hospitals Parma Medical CenterBacteria identified in Unspecified specimen by Aerobe cultureSelect Medical [facility] Rehabilitation Hospital - DublinBacteria identified in Unspecified specimen by Anaerobe cultureSelect Medical Ohio[facility] Rehabilitation Hospital - DublinDXA Skeletal system.axial Views for bone densitySelect Medical Ohiohealth Rehabilitation Hospital - DublinMG Breast - bilateral ScreeningSelect Medical [facility] Rehabilitation Hospital - DublinMG Breast - bilateral ScreeningSelect Medical [facility] Patient referralMagruder Memorial Hospital Work Phone: us Kidney - bilateralSelect Medical [facility] US Lower extremity vein - rightSelect Medical Ohiohealth Rehabilitation Hospital - DublinXR Tibia and Fibula - right 2 ViewsSelect Medical [facility] Immunizations Immunization DateImmunizationNotesCare XpbgkjndZvpcfwza29-71-6141pvnnnaqxr, injectable, madin elvia canine kidney, preservative freeJecarlos Johnson CAD DRAFTSMAN-TELECASTING ENGINEER Work Phone: [facility] Medical CenterXtmcwo30-62-8336rsjweyako virus vaccine, unspecified formulationMarina Gilliam [facility]10-03-2022 influenza virus vaccine, unspecified formulationHola Johnson CAD DRAFTSMAN-TELECASTING ENGINEER Work Phone: [facility] Medical CenterSllonr60-50-4125MDXO-HrO-9 (COVID-19) mRNAMUL.ORD!j38614Vgmcy Lue [facility]09-28-2021SARS-CoV-2 (COVID-19) mRNA BNT-162b2 vaxKathy Lue [facility]08-04-2021zoster vaccine recombinantKathy Lue [facility]05-19-2021zoster vaccine recombinantKathy Lue [facility]02-16-2021SARS-CoV-2 (COVID-19) mRNA BNT-162b2 vaxKathy Lue [facility] on above:Result Comment: 2022-08-22: FPM8920-20-3233QHFI-EhF-6 (COVID-19) mRNA BNT-162b2 vaxKathy Lue [facility] on above:Result Comment: 2022-08-22: [id number] virus vaccine, split virus (incl. purified surface antigen)Harlan Knowles Other [employer] Other [id number] virus vaccine, unspecified formulationSelect Medical [facility]10-13-2020influenza virus vaccine, unspecified formulationKathy Lue [facility]06-04-2019pneumococcal polysaccharide vaccine, 23 valentMarcia Knowles Other [facility]04-26-2018 pneumococcal conjugate vaccine, 13 valStacey Key Jr. [facility] [id number] Conjugate, unspecified formulation; Translations: [Need for prophylactic vaccination against Streptococcus pneumoniae (pneumococcus)]Harlan Knowles Other [employer] Other [id number] polysaccharide vaccine, 23 valentKathy Lue [facility]10-01-2017influenza virus vaccine, unspecified formulationKathy Lue [facility] Payers DatePayer CategoryPayerPolicy [id number] [facility] MUTUAL Member Subscriber Plan / Payer (Effective 2020-Present) Name: Damaso Kan Relation to Subscriber: Self Name: Damaso Kan Payer ID: Not on file Type: Not on file Address: [address] [place] [id number] [id number] [id number] [id number] 2.16.840.1.153081.3.57[id number] 2.16840.1.622088.3.57[id number] 2.16840.1.674057.3.579.[id number] 2.16.840.1.952701.3.57[id number] 2.16.840.1.764099.3.579.2.5[id number] 2.16.840.1.071917.3.579.2.36317-23-0952Kxaapdg55213990 2.16840.1.417612.3.579.2.92986-23-3019Pgmxbaw557526886 2.16840.1.088212.3.579.2.9[id number] 2.16.840.1.890529.3.579.2.725875-82-6912Vkygvjb020468804 2.16.840.1.336345.3.579.2.452283-94-5908Siyuqmi89727290 2.16840.1.068435.3.579.2.4[id number] 2.16.840.1.508618.3.579.2.192770-67-3514Qrykgho244982750 2.16.840.1.831070.3.579.2.225275-44-3914Esekdcz473956532 2.16.840.1.490535.3.579.2.075351-52-9667Sibczvr619396720 2.16.840.1.814505.3.579.2.559[id number] 2.16.840.1.154162.3.579.2.1[id number] 2.16.840.1.582178.3.579.2.[id number] 2.16.840.1.570045.3.579.2.634341-81-7269Zthpofk040190472 2.16.840.1.693254.3.579.2.517428-05-3739Kpeybpo723792977 2.16.840.1.800381.3.579.2.545931-72-2170Bzczwrn50392254 2.16.840.1.481584.3.579.2.75067-86-9714Xwpllqn94939885 2.16.840.1.896729.3.579.2.53867-86-2610Byhatya28997574 2.16.840.1.870200.3.579.2.65855-54-3175Qkzekmn45115248 2.16.840.1.136619.3.579.2.19620-45-9695Nmeggoz87028169 2.16.840.1.047706.3.579.2.36771-11-9279Scmsvzx15763713 2.16.840.1.922156.3.579.2.68784-25-3282Hdosbgw668199637 2.16.840.1.732932.3.579.2.14640-13-2088Wqsovpo758087335 2.16.840.1.379199.3.579.2.61464-15-9577Cwbmnsh453662771 2.16.840.1.330828.3.579.2.36458-19-0507Deoghgj50979673 2.16.840.1.079286.3.579.2.75017-70-5228Bgclmye67391290 2.16.840.1.739476.3.579.2.19909-27-3110Xiivjem46942664 2.16.840.1.284198.3.5[id number] 776006nl-2051-97l7-71[id number] 2.16.840.1.6585[id number] 2.16.840.1.816000.3.579.2.531 Social History DateTypeDetailFacilityStart: 12-05-2021 End: 63-80-4344Xeatohj smoking statusNever smoked tobacco (finding)[facility] start: 08-17-2024 End: 04-29-0615Jnl [facility]igned At [facility] Tobacc smoking statusNeverExecutive [facility]rology of [facility]atitart: 95-66-7393Wwd Assigned At [facility] Hospitaltart: 07-16-2024 End: 31-70-9100TtfBbyjpw (finding)[facility] Hospital[facility]: 33-34-7959Yzgtcif use and exposureSmokeless tobacco non-userPremier [facility] Pixtr SystemStart: 08-17-2024 End: 59-28-4741Coavwskoh beverage intakeEx-drinker (finding)[facility] Pixtr [facility] Centertart: 08-17-2024 End: 60-30-7713Mtgvftr of Social functionProSt. Vincent'S St. Clair Pixtr Up Health SystemHas the [employer] Workforce, gas, oil, or water company threatened to shut off services in your home in past 12MoNEastern Niagara Hospital Pixtr SystemHow often to you have a drink containing alcohol?Monthly or lessPremier Health Atrium Medical Center Pixtr SystemHow many standard drinks containing alcohol do you have on a typical day?1 or 2PWillis-K[facility] Pixtr Up Health SystemHow often do you have 6 or more drinks on 1 occasion?NeverPremier Health Atrium Medical Center Pixtr [facility] Centertart: 27-35-5655Vbqhehp Commentvery seldomNovant Health Huntersville Medical Centertart: 94-53-7622Jin assigned at birthNot on filePremier Health Atrium Medical Center Pixtr [facility] Centertart: 05-28-2024 End: 44-29-9379Vglieteuy beverage intakeLifetime non-drinker (finding)[facility] Pixtr [facility] Centertart: 99-34-0005Gfatuin CommentrarePProMedica Flower HospitalTobacco smoking status NHISTobacco smoking consumption unknownLewisgale Hospital Alleghany Goals DatePatient GoalDesired Activity/StatePersonal health goalComment on above: Evaluation of progress towards goal: safe transition home self care with spouse and family support. Functional Status SavhCosfcxwpdnTobjppEamucmjr06-22-4508Rtvkkbnmyn StatusN/AExec[facility]08-09-2023Functional StatusN/A[facility]02-08-2023Functional StatusN/A [facility] Work Phone: Mental Status DateAssessmentResultCare [facility] Clinical Notes 12-05-2021 to 03-11-2025 Note Date & GnibSmpcErqgbcgz79-68-9341 NoteAdmission Information Pt admitted for R TKA Hospital Course [...] mg, VAG, q4day, use with enclosed calibrated applicatoras directed. wash applicator with mild soap/warm water [...] signed by Johny Perdomo DO 03/11/25 22:00 [facility]08-14-2025 Miscellaneous Notes* Telephone Encounter - Rashida Piña - 02/25/2025 5:47 PM EDT Damaso calls to ask if we have received a fax requesting surgical clearance. She was informed that no fax was received. She says she will have it re-faxed. * Telephone Encounter - Rashida Piña - 02/25/2025 5:47 PM EDT Damaso was called and informed that the fax was received. She was informed that she has not been seen in the office since 10/08/24. The form received suggests an appointment for evaluation. Certified Pest Control Technician attempted to contact the [facility] to discuss, but was unable to reach a person or leave a message. Damaso suggests calling [phone] ext [phone] and speaking to Christina. documented in this encounterUniversity Hospitals Parma Medical Center08-14-2025 Telephone encounter Note* Telephone Encounter - Rashida Piña - 02/25/2025 5:47 PM EDT Tiffanivalerianorubén calls to ask if we have received a fax requesting surgical clearance. She was informed that no fax was received. She says she will have it re-faxed. [facility] Sys[id number] Telephone encounter Note* Telephone Encounter - Rashida Piña - 02/25/2025 5:47 PM EDT Damaso was called and informed that the fax was received. She was informed that she has not been seen in the office since 10/08/24. The form received suggests an appointment for evaluation. Certified Pest Control Technician attempted to contact the [facility] to discuss, but was unable to reach a person or leave a message. Damaso suggests calling [phone] ext [phone] and speaking to Christina. [facility] Systemedenes [id number] Evaluation note* Diagnosis Onset Date Resolution Status Admit Date Medicare annual wellness visit, subseque nt acuteJuly 2024 10:20amOsteoarthritis of right kneeacuteJuly 2024 10:20amRecurrent UTI (urinary tract infection)acuteJuly 2024 10:20am Screening mammogram for breast canceracuteJuly 2024 10:20amSubdural hemorrhageacuteJuly 2024 10:20amOsteoarthritis of right kneeacuteAugust 2024 8:51amPreoperative clearanceacuteAugust 2024 8:51amRecurrent UTI (urinary tract infection)acuteAugust 2024 8:51amViral URIacuteAugust 2024 1:12pm [facility] Work Phone: 1(899) 820-269407-16-2025 Evaluation note* Diagnosis Onset Date Resolution Status Admit Date Medicare annual wellness visit, subseque nt acuteJuly 2024 10:20amOsteoarthritis of right kneeacuteJuly 2024 10:20amRecurrent UTI (urinary tract infection)acuteJuly 2024 10:20am Screening mammogram for breast canceracuteJuly 2024 10:20amSubdural hemorrhageacuteJuly 2024 10:20amOsteoarthritis of right kneeacuteAugust 2024 8:51amPreoperative clearanceacuteAugust 2024 8:51amRecurrent UTI (urinary tract infection)acuteAugust 2024 8:51amViral URIacuteAugust 2024 1:12pmCellulitis of knee, rightacuteSeptember 2024 11:41am [facility] Work Phone: 1(202) 376-126607-09-2025 Miscellaneous Notes* Telephone Encounter - Rashida Piña - 01/20/2025 11:33 AM EDT Damaso leaves a message to say that she has an upcoming knee surgery planned. She states, the orthopedic doctor would like clearance from Dr. Ellsworth to say that it is okay for me to have anesthesia and be placed on a blood thinner post operatively. *please ask Damaso to have the ortho provider fax a surgical clearance. * Telephone Encounter - Rashida Piña - 01/20/2025 11:33 AM EDT Call returned. Damaso was asked to have the orthopedic surgeon send a clearance regarding the surgical procedure. She was given the office fax number. She was also advised to call the office back if she has any difficulty regarding the clearance letter. Damaso verbalized understanding. documented in this encounterUniversity Hospitals Parma Medical Center07-09-2025 Telephone encounter Note* Telephone Encounter - Rashida Piña - 01/20/2025 11:33 AM EDT Damaso leaves a message to say that she has an upcoming knee surgery planned. She states, the orthopedic doctor would like clearance from Dr. Ellsworth to say that it is okay for me to have anesthesia and be placed on a blood thinner post operatively. *please ask Damaso to have the ortho provider fax a surgical clearance. [facility]07-09-2025 Telephone encounter Note* Telephone Encounter - Rashida Piña - 01/20/2025 11:33 AM EDT Call returned. Damaso was asked to have the orthopedic surgeon send a clearance regarding the surgical procedure. She was given the office fax number. She was also advised to call the office back if she has any difficulty regarding the clearance letter. Damaso verbalized understanding. [facility]06-18-2025 NoteRadiology Sclerotherapy Sclerotherapy is a procedure that [...] including vitamins, herbs, eye drops, creams, and ueyn-rmv-pmiqlmo medicines. ? Any bleeding problems you have. [...] care provider tells you to. ? Taking ujeu-dzw-ydtldic medicines, vitamins, herbs, and supplements. Tests ? [...] right away. Call 911. (more content not included)...[facility] [id number] Evaluation note* Diagnosis Onset Date Resolution Status Admit Date Osteoarthritis of right knee acuteJune 2024 1:00pmSubdural hemorrhageacuteJune 2024 1:00pmScreening mammogram for breast canceracuteJuly 2024 10:20am [facility] Work Phone: 1(906) 858-394806-05-2025 Evaluation note* Diagnosis Onset Date Resolution Status Admit Date Osteoarthritis of right knee acuteJune 2024 1:00pmSubdural hemorrhageacuteJune 2024 1:00pmMedicare annual wellness visit, subsequentacuteJuly 2024 10:20amOsteoarthritis of right kneeacuteJuly 2024 10:20amRecurrent UTI (urinary tract infection) acuteJuly 2024 10:20amScreening mammogram for breast canceracuteJuly 2024 10:20amSubdural hemorrhageacuteJuly 2024 10:20am [facility] Work Phone: 1(448) 297-573806-05-2025 Evaluation note* Diagnosis Onset Date Resolution Status Admit Date Osteoarthritis of right knee acuteJune 2024 1:00pmSubdural hemorrhageacuteJune 2024 1:00pmMedicare annual wellness visit, subsequentacuteJuly 2024 10:20amOsteoarthritis of right kneeacuteJuly 2024 10:20amRecurrent UTI (urinary tract infection) acuteJuly 2024 10:20amScreening mammogram for breast canceracuteJuly 2024 10:20amSubdural hemorrhageacuteJuly 2024 10:20amOsteoarthritis of right kneeacuteAugust 2024 8:51amPreoperative clearanceacuteAugust 2024 8:51amRecurrent UTI (urinary tract infection)acuteAugust 2024 8:51am [facility] Work Phone: 1(285) 243-888005-21-2025 NoteRadiology Sclerotherapy Sclerotherapy is a procedure that [...] including vitamins, herbs, eye drops, creams, and cmjn-qsq-xjbwrwz medicines. ? Any bleeding problems you have. [...] care provider tells you to. ? Taking nhje-bsw-aimghol medicines, vitamins, herbs, and supplements. Tests ? [...] right away. Call 911. (more content not included)...[facility] [id number] Miscellaneous Notes* Telephone Encounter - Marina Gilliam RN - 10/27/2024 10:08 AM EDT Lavohn calls asking for results- informed will discuss with provider. documented in this encounterUniversity Hospitals Parma Medical Center04-15-2025 Telephone encounter Note* Telephone Encounter - Marina Gilliam RN - 10/27/2024 10:08 AM EDT Lavohn calls asking for results- informed will discuss with provider. [facility]03-27-2025 History of Present illness Narrative* Dutch Ellsworth MD - 10/08/2024 2:00 PM EDT Images from the original note were not included. [facility] [address] [place] [address], [address] [place] [address] * CHART NOTE ? 10/08/2024 Patient: Damaso Kan 1945 [id number] Physician: Dutch Ellsworth MD REASON FOR VISIT [...] by mouth in the morning. Med Name: [place] vitamin for bladder health., Disp: , Rfl: [...] embolization. Dutch Ellsworth MD documented in this encounterUniversity Hospitals Parma Medical Center03-27-2025 Instructions* Patient Instructions* Adamaris Dumont - 10/08/2024 2:00 PM EDT Patient seen today by dr. Ellsworth CT brain w/o contrast Call for results KM documented in this encounterUniversity Hospitals Parma Medical Center03-18-2025 History of Present illness Narrative* Maddie Ramachandran PA-C - 09/29/2024 1:00 PM EDT Damaso Pavon Lucius Date of visit: 09/29/2024 Date of : 1945 Age: 79 y.o. Patient Active Problem List Diagnosis Visual impairment Kidney mass Arthritis Superficial phlebitis and thrombophlebitis of right lower extremity Varicose veins of bilateral lower extremities with pain Subdural hemorrhage ([facility]) Acute cystitis Asymptomatic bacteriuria Cholelithiasis Hyperparathyroidism ([facility]) Osteopenia Urinary urgency Vaginal atrophy Vasovagal syncope [...] by mouth in the morning. Med Name: [place] vitamin for bladder health. fexofenadine (MARY) 180 mg tablet Take by mouth. No current facility-administered medications for this visit. Chief Complaint Patient presents with Hospital Follow-up [facility] Dizziness Rare occasions History of Present Illness [...] 06/14/2021 Performed by Vic Hitchcock DO at [facility] BREAST SURGERY bx, marker in [...] KNOWLES MD Referring Physician: Harlan Knowles MD [facility] [place] [address] Maddie Ramachandran PA-C 09/29/24 1415 documented in this encounterUniversity Hospitals Parma Medical Center03-18-2025 Instructions* Patient Instructions* Maddie Ramachandran PA-C - 09/29/2024 1:00 PM EDT Follow up in one year documented in this encounterUniversity Hospitals Parma Medical Center03-17-2025 Miscellaneous Notes* Telephone Encounter - Shelby Miner CMA - 09/28/2024 3:14 PM EDT Left message for patient to remind them to bring their most current medication list with them to their appointment. documented in this encounterUniversity Hospitals Parma Medical Center03-17-2025 Telephone encounter Note* Telephone Encounter - Shelby Miner CMA - 09/28/2024 3:14 PM EDT Left message for patient to remind them to bring their most current medication list with them to their appointment. [facility]02-13-2025 Miscellaneous Notes* Telephone Encounter - Rashida Piña - 08/27/2024 2:16 PM EST Daughter calls to report that the CT brain scan was completed today. She was advised that the provider will review the scan and Damaso will be called with the results. * Telephone Encounter - Rashida Piña - 08/27/2024 2:[address] Brain images were reviewed by Dr. Ellsworth. Orders received per Dr. Ellsworth: Repeat CT brain in 2 weeks, make follow up appointment with provider. , Qunetin was called and informed that Dr. Ellsworth would like Damaso to have a repeat CT brain scan done in 2 weeks (09/10/24). He would also like her to follow up with an appointment to review theresults. Quentin was advised to schedule the CT then call our office to schedule an appointment to follow. He verbalized understanding. documented in this encounterUniversity Hospitals Parma Medical Center02-13-2025 Telephone encounter Note* Telephone Encounter - Rashida Piña - 08/27/2024 2:16 PM EST Daughter calls to report that the CT brain scan was completed today. She was advised that the provider will review the scan and Damaso will be called with the results. [facility]02-13-2025 Telephone encounter Note* Telephone Encounter - Rashida Piña - 08/27/2024 2:[address] Brain images were reviewed by Dr. Ellsworth. Orders received per Dr. Ellsworth: Repeat CT brain in 2 weeks, make follow up appointment with provider. , Quentin was called and informed that Dr. Ellsworth would like Tiffaniwyrubén to have a repeat CT brain scan done in 2 weeks (09/10/24). He would also like her to follow up with an appointment to review theresults. Quentin was advised to schedule the CT then call our office to schedule an appointment to follow. He verbalized understanding. [facility]02-06-2025 Miscellaneous Notes* Telephone Encounter - Maggie Kenney RN - 08/20/2024 8:03 AM EST Images from the original note were not included. * Telephone Encounter - Maggie Kenney RN - 08/20/2024 8:03 AM EST Patient still admitted documented in this encounterUniversity Hospitals Parma Medical Center02-06-2025 Telephone encounter Note* Telephone Encounter - Maggie Kenney RN - 08/20/2024 8:03 AM EST Images from the original note were not included. [facility]02-06-2025 Telephone encounter Note* Telephone Encounter - Maggie Kenney RN - 08/20/2024 8:03 AM EST Patient still admitted [facility]01-02-2025 Evaluation note* Diagnosis Onset Date Resolution Status Admit Date Hydronephrosis, right acuteJanuary 2024 8:54amKidney stoneacuteJanuary 2024 8:54amRenal lesionacuteJanuary 2024 8:54am [facility] Work Phone: [phone]) 813-716711-27-2024 Evaluation + Plan note* Assessment & Plan Note - Zaida Child MD - 06/10/2024 5:32 PM ESTAssociated Problem(s): Varicose veins of bilateral lower extremities with pain Venous reflux ultrasound compression stockings leg elevation and exercise. [facility]11-27-2024 Evaluation + Plan note* Assessment & Plan Note - Zaida Child MD - 06/10/2024 5:32 PM ESTAssociated Problem(s): Superficial phlebitis and thrombophlebitis of right lower extremity Warm compresses nonsteroidal anti-inflammatory drugs leg elevation and compression therapy. We willget venous reflux ultrasound and rule out DVT as well. [facility]11-27-2024 Miscellaneous Notes* Assessment & Plan Note - Zaida hCild MD - 06/10/2024 5:32 PM ESTAssociated Problem(s): [...] out DVT as well. documented in this encounterUniversity Hospitals Parma Medical Center11-27-2024 History of Present illness Narrative* [...] given by office. Patient was given a [employer] coupon voucher to use, this is not [...] 06/14/2021 Performed by Vic Hitchcock DO at [facility] BREAST SURGERY bx, marker in place [...] Zaida Child MD, TRIPP, RPVI, FSVS, FACS [facility] This note was created with the assistance of a speech recognition program. While intending to generate a timely document that accurately reflects the content of the visit, no guarantee can be provided that every grammatical or spelling mistake has been or will be identified or corrected. Thank you for your understanding. documented in this encounterUniversity Hospitals Parma Medical Center11-14-2024 Evaluation + Plan note* Assessment & Plan Note - Zaida Child MD - 05/28/2024 11:35 AM EST Associated Problem(s): Varicose veins of bilateral lower extremities with pain Compression stockings leg elevation exercise. Venous reflux ultrasound. [facility]11-14-2024 Miscellaneous Notes* Assessment & Plan [...] compression therapy when possible documented in this encounterUniversity Hospitals Parma Medical Center11-14-2024 Evaluation + Plan note* Assessment & Plan Note - Zaida Child MD - 05/28/2024 11:34 AM EST Associated Problem(s): Superficial phlebitis and thrombophlebitis of right lower extremity Nonsteroidal anti-inflammatory drugs warm compresses leg elevation and compression therapy when possible [facility] Pixtr [id number] History of Present illness Narrative* Zaida Child [...] given by office. Patient was given a [employer] coupon voucher to use, this is not [...] 06/14/2021 Performed by Vic Hitchcock DO at [facility] BREAST SURGERY bx, marker in [...] extremity Right leg pain - [facility] - [place], [place] Phlebitis and thrombophlebitis of unspecified site - [facility] - [place], [place] Varicose veins of bilateral lower extremities with pain Zaida Child MD, TRIPP, RPVI, FSVS, FACS [facility] This note was created with the assistance of a speech recognition program. While intending to generate a timely document that accurately reflects the content of the visit, no guarantee can be provided that every grammatical or spelling mistake has been or will be identified or corrected. Thank you for your understanding. documented in this encounterMercy Health Springfield Regional Medical CenterGENELINK [facility] John [id number] Evaluation note* Diagnosis Onset Date Resolution Status Admit Date Preoperative examination acuteOctober 2023 11:24amRight leg painacuteOctober 2023 2:12pm PhlebitisacuteNovember 2023 11:09amRight leg painacuteNovember 2023 11:09amHydronephrosis, rightacuteJan2024 8:54amKidney stoneacute Jessi 2024 8:54am [facility] Work Phone: 1(756) 894-783609-27-2024 NoteProcedure: MRI of the right knee without [...] Is Signed, Electronically Signed in Other Vendor System)[facility]09-27-2024 NoteProcedure: MRI of the right knee [...] Is Signed, Electronically Signed in Other Vendor System)[facility]07-03-2024 Evaluation + Plan note Diagnostic Tests Pending * Urine Culture 01/15/24 [facility]07-03-2024 Hospital Discharge instructions Patient Education 01/15/2024 11:24:08 [...] provider. Document Revised: 11/09/2021 Document Reviewed: 11/09/2021 Ahonya Patient Education 2022 [employer]. Follow Up Care 02/20/2023 12:02:25 With:Gage JACOB, Katie Arteaga URMarlena, URO Address: [address] [place] [phone] When: Unknown [facility] 07-03-2024 NotePatient Education Obstetrics and Gynecology Kegel [...] provider. Document Revised: 11/09/2021 Document Reviewed: 11/09/2021 Ahonya Patient Education ? 2022 [employer].[facility] 07-30-2023 Evaluation note* Encounter Date Diagnosis Assessment Notes Treatment Notes Treatment Clinical Notes Jul, Acute non-recurrent maxillary si nusitis (ICD-10 - J01.00) [facility] [facility] Other 08-09-2023 Hospital Discharge instructions Patient Education 02/20/2023 09:58:29 Urinary Tract Infection, Adult, Vlaj-pz-Xfxc Urinary Tract Infection, Adult A urinary tract [...] Follow these instructions at home: Medicines Take rlsw-uht-bgtbvuv and prescription medicines only as told by [...] provider. Document Revised: 02/10/2021 Document Reviewed: 02/10/2021 Ahonya Patient Education 2022 [employer]. Follow Up Care 08/22/2022 12:56:32 With:Gage JACOB, KEKE Carrera, URO Address: When:Within 1 Year(s) [facility] 02-08-2023 Hospital Discharge instructions Patient [...] 06/17/2013 Document Revised: 02/18/2019 Document Reviewed: 02/18/2019 Ahonya Patient Education 2020 [employer]. Follow Up Care 06/13/2022 11:42:12 With:Gage JACOB, KEKE Carrera, URO Address: When: Unknown [facility] 05-24-2022 Hospital Discharge instructions Patient [...] provider gives to you. In general: Take bamg-qej-vmfefes and prescription medicines only as told by [...] 01/26/2015 Document Revised: 08/07/2018 Document Reviewed: 08/07/2018 Ahonya Patient Education [employer]. Follow Up Care 06/07/2021 13:20:37 With:Shahid Ontiveros MD, Mally Mendiola URO Address: [facility] [address], [place] [address]- When: Unknown [facility] evaluation + Plan note No data available for this section [facility] evaluation + Plan note Future Appointments Appointment Date:02/20/2023 10:45:00 AM Scheduled Provider:Katie Almonte MD Location:[facility] Appointment Type:URO Office Visit [facility] evaluation + Plan note Future Appointments Appointment Date:02/26/2024 10:45:00 AM Scheduled Provider:Katie Almonte MD Location:[facility] Appointment Type:URO Office Visit [facility] evaluation noteNo [facility] Other Evaluation note* Diagnosis Onset Date Resolution Status Menopausal and postmenopausal disorder acuteScreening mammogram for breast canceracute [facility] Work Phone: evaluation noteNo assessment information available [facility] Work Phone: Evaluation note* Diagnosis Onset Date Resolution Status Preoperative examination acuteRight leg painacute [facility] Work Phone: Evaluation note* Diagnosis Onset Date Resolution Status Preoperative examination acuteRight leg painacutePhlebitisacuteRight leg painacute [facility] Work Phone: Evaluation note* Diagnosis Superficial [...] Primary Subdural hemorrhage [facility] Diagnosis Superficial phlebitis and thrombophlebitis of right lower extremity- Primary Right leg pain Pain in soft tissues of limb Phlebitis and thrombophlebitis of unspecified site Varicose veins of bilateral lower extremities with pain [facility]* Diagnosis Superficial phlebitis and thrombophlebitis of right lower extremity- Primary Right leg pain Pain in soft tissues of limb Phlebitis and thrombophlebitis of unspecified site Varicose veins of bilateral lower extremities with pain Superficial phlebitis and thrombophlebitis of right lower extremity- Primary Varicose veins of bilateral lower extremities with pain [facility] Diagnosis Superficial phlebitis and thrombophlebitis of right lower extremity- Primary Right leg pain Pain in soft tissues of limb Phlebitis and thrombophlebitis of unspecified site Varicose veins of bilateral lower extremities with pain Superficial phlebitis and thrombophlebitis of right lower extremity- Primary Varicose veins of bilateral lower extremities with pain Vasovagal syncope- Primary Syncope and collapse documented in this [facility]* Diagnosis Superficial phlebitis and thrombophlebitis of right lower extremity- Primary Right leg pain Pain in soft tissues of limb Phlebitis and thrombophlebitis of unspecified site Varicose veins of bilateral lower extremities with pain Superficial phlebitis and thrombophlebitis of right lower extremity- Primary Varicose veins of bilateral lower extremities with pain Subdural hemorrhage (CMS-HCC)- Primary Subdural hemorrhage [facility] Diagnosis Osteoarthritis of right knee, unspecified osteoarthritis type documented [facility]* Diagnosis History of total knee replacement, right Aftercare following right shoulder joint replacement surgery documented in this encounter [facility] general Narrative - Reported* Type Description Date Medical History OSTEOPENIA Medical HistoryHYPERCALCEMIAMedical Historyhyperparathyroidism, primarySurgical HistorySPLEEN REMOVED 1990Surgical HistoryORAL SURGERYSurgical History TUBILIGATIONSurgical HistoryTOTAL HYSTRECTOMYSurgical HistoryOOPHRECTOMYSurgical HistoryRT KNEE ARTHOSCOPICSurgical HistoryTWO DENTAL IMPLANTSSurgical History parathyroidectomySurgical HistorycholecystectomySurgical Historycataracts, bilaterallyHospitalization HistorySEE ABOVE SURGERYHospitalization HistoryCHILD X'S 2 [facility] Other Hospital Discharge instructions No data available for this section [facility] Orders* Referral to Vascular Surgery Time Frame: 05/19/24, Location: None [facility] Work Phone: InstructionsNot on filedocumented in this [...] Health SystemInstructionsNot on filedocumented in this encounter [facility] No data available for this section [facility] reason for referral (narrative)No reason for referral [facility] Work [facility]: Summary Purpose Family History No Family History Records Found Relationship Condition Age at Onset Recorded Date/T radha father Unknown motherDeceasedUnknown Advance Directives No Advanced Directives Records Found Advance Directive Response Recorded Date/ Time Advance Directives No January 23 10:46am Advance Directive Response Recorded Date/ Time Advance Directives No January 23 9:46am Date ActivatedDate InactivatedComments08/17/2024 5:30 PMDate ActivatedDate InactivatedComments08/17/2024 5:30 08/20/2024 2:19 PMDate ActivatedDate InactivatedComments08/17/2024 5:30 PM2 2:19 PM Chief Complaint and Reason for Visit Chief Complaint wellness Reason for Visit Menopausal and postm enopausal disorder Screening mammogram for breast cancer Chief Complaint Pre-surgical Clearan ce Chief Complaint Pre-surgical Clearan ce Amb Documentation [facility]H f/u lower extremity pain CC Adult Risk StratificationReason for VisitPreoperative examination Right leg pain Chief Complaint Pre-surgical Clearan ce Amb Documentation [facility] f/u lower extremity pain CC Adult Risk Stratification Cellulitis f/uReason for VisitPreoperative examination Right leg pain Phlebitis Right leg pain [...] Visit Admit Date Preoperative examination April 29, 2 024 11:24am Right leg pain May 07, [...] 1:00p m Screening mammogram for breast cancer [facility] 2024 10:20am Chief Complaint Admit Date discuss surgery December 17, 2024 1:00p m Wellness January 27, 2025 10:2 0am surgical clearance, Dr Conor cortes February 17, 2025 8:51am Reason for Visit Admit Date Osteoarthritis of right knee December 17 025 1:00pm Subdural hemorrhage December 17, 2024 1:00p m Medicare annual wellness visit, josee nt January 27, 2025 10:20am Osteoarthritis of [...] (urinary tract infection) February 17, 2025 8:51am Chief Complaint Admit Date Wellness January 27, 2025 10:2 0am surgical clearance, Dr Perdomo R total k nee February 17, 2025 8:51am Sinus congestion, poss infected tooth Au bimal 2024 1:12pm R Knee/PT f/u April 08, 2025 11:41am Reason for Visit Admit Date Medicare annual wellness visit, subseque nt January [...] Viral URI February 22, 2025 1: 12pm Reason for Visit Admit Date Medicare annual wellness visit, subseque nt January [...] 12pm Cellulitis of knee, right March 11:41am Additional Source Comments INFORMATION SOURCE (unrecogn ized section and content) DATE CREATED AUTHOR 08/02/2022 [facility] DATE CREATED AUTHOR AUTHOR'S ORGANIZ ATION 01/16/2024 [facility] DATE CREATED AUTHOR AUTHOR'S ORGANIZ ATION 01/19/2024 [facility] DATE CREATED AUTHOR AUTHOR'S ORGANIZ ATION 10/07/2024 [facility] DATE CREATED AUTHOR AUTHOR'S ORGANIZ ATION 10/09/2024 [facility] DATE CREATED AUTHOR AUTHOR'S ORGANIZ ATION 10/16/[address] [facility] DATE CREATED AUTHOR AUTHOR'S ORGANIZ ATION 02/01/2025 [facility] DATE CREATED AUTHOR AUTHOR'S ORGANIZ ATION 03/13/2025 [facility] DATE CREATED AUTHOR AUTHOR'S ORGANIZ ATION 04/27/2025 [facility] DATE CREATED AUTHOR AUTHOR'S ORGANIZ ATION 05/06/2025 [facility] Patient Care team informatio n (unrecognized section [...] Active Start: May 01, 2024 Johny Perdomo , DOAttending ProviderActiveStart: May 01, 2024 Team Status: Active Member Role Status Dates Harlan Knowles MD Primary Care Provider Active Start: 2024 Jenniffer Luna CMAAttending ProviderActiveStart: 2024 Team Status: Inactive Member Role Status [...] Active Start: May 03, 2024 Lucas Robert DOAttending ProviderActiveStart: May 03, 2024 Team Status: Inactive Member Role Status Dates Maryan Mcwilliams MD Attending Provider Active Sta rt: July 08, 2024 End: July 08, 2024 Team Status: Active Member Role Status Dates Harlan Knowles MD Primary Care Provider Active Start: July 09, 2024 Jenniffer Luna CMAAttending ProviderActiveStart: July 09, 2024 Team Status: Inactive Member Role Status Dates Harlan Knowles MD Primary Care Provide r, Attending Provider Active Start: July 16, 2024 End: July 16, 2024Team MemberRelationshipSpecialtyStart DateEnd Date Halran Knowles MD [address] [place] [address] [facility] Tllbeufy56/18/21Team MemberRelationshipSpecialtyStart Date End Date Harlan Knowles MD [address] [place] [address] [facility] Csshsoyn87/18/21Team MemberRelationshipSpecialtyStart Date End Date Harlan Knowles MD [address] [place] [address] PCP - Generalmily Okwowylj01/18/21Team MemberRelationshipSpecialtyStart Date End Date Harlan Knowles MD [address] [place] [address] [facility] - [facility] Dprotlxb93/18/21Team MemberRelationshipSpecialtyStart Date End Date Harlan Knowles MD [address] [place] [address] PCP - [facility]06/01/21Team MemberRelationshipSpecialtyStart [place] [address] [place] [address] PCP - [facility]06/01/21 Team Status: Active Member Role Status Dates Harlan Knowles MD Primary Care Provider Active Start: July 08, 2024 Lucas Robert , DOAttending ProviderActiveStart: July 08, 2024 Team Status: Active Member Role Status Dates Harlan Knowles MD Primary Care Provider Active Start: August 17, 2024 Hola Sorensen , DOAttending ProviderActiveStart: August 17, 2024 Team Status: Active Member Role Status Dates Harlan Knowles MD Primary Care Provider Active Start: August 21, 2024 Jenniffer Luna , CMAAttending ProviderActiveStart: August 21, 2024 Team Status: Inactive Member Role Status Dates Harlan Knowles MD Primary Care Provide r, Attending Provider Active Start: September 02, 2024 End: September 02, 2024Team MemberRelationshipSpecialtyStart [place] [address] [place] [address] PCP - [facility]06/01/21Team MemberRelationshipSpecialtyStart [place] [address] [place] [address] PCP - [facility]06/01/21Team MemberRelationshipSpecialtyStart Date End Date Harlan Knowles MD [address] [place] [address] PCP - [facility]06/01/21 Team Status: Inactive Member Role Status Dates Harlan Knowles MD Primary Care Provide r, Attending Provider Active Start: December 17, 2024 End: December 17, 2024Team MemberRelationshipSpecialtyStart DateEnd Date Harlan Knowles MD [address] [place] [address] PCP - [facility]06/01/21Team MemberRelationshipSpecialtyStart [place] [address] [place] [phone] PCP - [facility]01/18/25 Team Status: Inactive Member Role Status Dates Harlan Knowles MD Primary Care Provider Active Start: December 17, 2024 End: December 17, 2024Renetta Pimentel ProviderActiveStart: December 17, 2024 End: December 17, 2024 Team Status: Inactive Member Role Status Dates Harlan Knowles MD Primary Care Provider Active Start: January 27, 2025 End: January 27, 2025Renetta Pimentel ProviderActiveStart: January 27, 2025 End: January 27, 2025 Team Status: Active Member Role Status Dates Harlan Knowles MD Primary Care Provider Active Start: February 10, 2025 Batsheva Wolf ProviderActiveStart: February 10, 2025 Team Status: Inactive Member Role Status Dates Harlan Knowles MD Primary Care Provider Active Start: February 17, 2025 End: February 17, 2025Renetta Pimentel ProviderActiveStart: February 17, 2025 End: February 17, 2025 Team Status: Inactive Member Role Status Dates Harlan Knowles MD Primary Care Provider Active Start: February 22, 2025 End: February 22, 2025Shannan Polanco APRN COMMUNITY AMBASSADOR-CAttending Provider ActiveStart: February 22, 2025 End: February 22, 2025Team MemberRelationshipSpecialtyStart DateEnd Date Harlan Knowles MD [address] [place] [address] PCP - [facility]06/01/21 Team Status: Active Member Role Status Dates Harlan Knowles MD Primary Care Provider Active Start: March 31, 2025 KAUSHIK Villanueva-Milena ProviderActiveStart: March 31, 2025 Team Status: Inactive Member Role Status Dates Harlan Knowles MD Primary Care Provider Active Start: April 08, 2025 End: April 08, 2025Harlan Knowles MDAttvanessa ProviderActiveStart: April 08, 2025 End: April 08, 2025Team MemberRelationshipSpecialtyStart DateEnd Date Harlan Knowles MD [address] [place] [phone] PCP - GeneralFamily Medicine01/18/25 REASON FOR VISIT (unrecogniz ed section and content) ReasonCommentsMed RefillReasonOnset DateCommentsneeds event monitor ordered 08/20/2024ReasonCommentsnew patient - right leg pain after cellulitisSpecialty Diagnoses / ProceduresReferred By ContactReferred To ContactVascular Surgery Diagnoses Right leg pain Phlebitis and thrombophlebitis of unspecified site Harlan Knowles MD [address] [place] [address] Phone: tel: fax: [facility] [address] [place] [address] Phone: tel:[phone] fax: Referral IDStatusReasonStart DateExpiration DateVisits RequestedVisits [id number] Review Specialty Services Required [id number] up superficial thrombophlebitis venous duplex lwr sLeg PainSharp pain 01/21 when raising legs or stands upReasonComments Hospital Follow-upIP TTHDizzinessRare occasionsReasonCommentsFollow-upEp review brain ct resultsReasonOnset RpdxEhnjdpszFcblgmg49/15/2025ReasonOnset Date Inzuzlfxofjvbmuim46/14/2025 Goals (unrecognized section and content) Goals may [...] BE BASED ON THE PRIMARY CLINICAL RECORDS. [facility] [employer] [facility]. provides no warranty or guarantee of the accuracy or completeness of information in this document.
--- OUTSIDE RECORDS SUMMARY | 2025-05-13 13:01 | XMS_ITS | Clinical Summary ---
Author Organization [facility] Address [id number] [address] [place] [address] Care Team Providers Care Associate Business Analyst Name Role Phone Hafsa Browning MD Primary Care Provider [phone] Allergies Active AllergyReactionsCriticalityNoted DateCommentsCodeineNausea,GI Disturbance 06/14/2021 Medications MedicationSigDispense QuantityRefillsLast FilledStart DateEnd DateStatus biotin 1 mg capsule Take 1 capsule by mouth in the morning.Active cholecalciferol, vitamin D3, 5,000 units tablet Take 1 tablet (5,000 Units total) by mouth in the morning.Active cranberry 500 mg capsule Take 1 mg by mouth in the morning.Active loratadine (CLARITIN) 10 mg tablet Take 1 tablet (10 mg total) by mouth daily as needed for allergies.Active estradioL (ESTRACE) 0.01 % (0.1 mg/gram) vaginal cream Insert 2 g into the vagina 2 (two) times a week.01/15/2024ctive NON FORMULARY Take 1 each by mouth in the morning. Med Name: [place] vitamin for bladder health.Active acetaminophen (TYLENOL EXTRA STRENGTH) 500 mg tablet Take 2 tablets (1,000 mg total) by mouth every 6 (six) hours as needed for pain. Active Active Problems ProblemNoted DateDiagnosed DateVasovagal suyupok82/18/2025Acute cystitis 09/23/2024symptomatic jeukxbihmwf82/12/1103Xiuvdyxxkbnngr67/12/2025 Chpfwxjgwcktvnxvmlr03/12/3443Bfcpcisicb70/12/2025Urinary ewwpxwb5609/23/2024 Vaginal juothsn9409/23/2024Subdural fgkpqbxbka09/03/2025Superficial phlebitis and thrombophlebitis of right lower peiodcrnz92/14/2024 Assessment & Plan (06/10/2024 5:32 PM EST): Warm compresses nonsteroidal anti-inflammatory drugs leg elevation and compression therapy. We willget venous reflux ultrasound and rule out DVT as well. Assessment & Plan (05/28/2024 11:34 AM EST): Nonsteroidal anti-inflammatory drugs warm compresses leg elevation and compression therapy when possible Varicose veins of bilateral lower extremities with pain05/28/2024 Assessment & Plan (06/10/2024 5:32 PM EST): Venous reflux ultrasound compression stockings leg elevation and exercise. Assessment & Plan (05/28/2024 11:35 AM EST): Compression stockings leg elevation exercise. Venous reflux ultrasound. Visual djssndkepv07/04/2023 Overview (07/18/2022): glasses Kidney mass07/18/20224141Huvjimmlc90/04/2023 Encounters DateTypeDepartmentCare SqaqCtfnvzospsq24/14/2025Telephone [facility] [address] [place] [phone] Cordell Ellsworth MD clearancefrom Last 3 Months Immunizations ImmunizationAdministration DatesNext DueInfluenza, Im Flucelvax (Pf)04/16/2024 Influenza, Yultdzbkfvw84/03/2022,04/26/2020,04/14/2017Pneumococcal Conjugate 13-Rrfidm8811/07/2017,11/07/2017Pneumococcal Hqvvewoznrogyc08/01/2018Zoster Vaccine Ucbuagettwn36/04/2021,11/30/2020 Family History Medical HistoryRelationNameCommentsMultiple myelomaFatherBrain TumorMaternal AuntBrain cancerMaternal AuntBreast cancerMaternal AuntCancerMaternal AuntBreast cancerMotherCancerMotherKidney cancerMotherOvarian cancerMotherBreast cancer Niece 1Breast cancerNiece 2RelationNameStatusCommentsFatherDeceasedMaternal Aunt DeceasedMaternal UncleDeceasedMotherDeceasedNiece 1DeceasedNiece 2Alive Social History Tobacco UseTypesPacks/DayYears UsedDateSmoking Tobacco: NeverSmokeless Tobacco: Never Tobacco Cessation:Counseling Given: Not Answered Alcohol UseStandard Drinks/WeekCommentsNot Currently0 (1 standard drink = 0.6 oz pure alcohol)very seldomAHC UtilitiesAnswerDate RecordedIn the past 12 months has the electric, gas, oil, or water [employer] threatened to shut off services in your home?No08/17/2024UDIT-CAnswerDate RecordedQ1: How often do you have a drink containing alcohol?Monthly or less08/17/2024Q2: How many drinks containing alcohol do you have on a typical day when you are drinking?1 or Q3: How often do you have six or more drinks on one occasion?Never08/17/2024Overall Financial Resource Strain (CARDIA)AnswerDate RecordedHow hard is it for you to pay for the very basics like food, housing, medical care, and heating?Not hard at all08/17/2024PHQ-2AnswerDate RecordedTotal Phdbn759PRAPARE - TransportationAnswerDate RecordedIn the past 12 months, has lack of transportation kept you from medical appointments or from getting medications?No 08/17/2024In the past 12 months, has lack of transportation kept you from meetings, work, or from getting things needed for daily living?No08/17/2024 Housing InstabilityAnswerDate RecordedAre you worried or concerned that in the next two months you may not have stable housing that you own, rent or stay in as a part of a household?No08/17/2024Hunger ScreeningAnswerDate RecordedWithin the past 12 months we worried whether our food would run out before we got money to buy more.Never True09/29/2024Within the past 12 months the food we bought just didn't last and we didn't have money to get more.Never True09/29/2024 CommentsUnknownSex and Gender InformationValueDate RecordedSex Assigned at Not on fileLegal XjaNrsmek74/17/2021 10:24 AM ESTGender IdentityNot on file Sexual OrientationNot on file Last Filed Vital Signs Vital SignReadingTime TakenCommentsBlood Wgsinncb373/90009/29/2024 12:51 PM EDT Rdvpi8939 12:51 PM XXFOtnyubwcjef38.9 ??C (98.5 ??F)08/20/2024 7:56 AM ESTRespiratory Tcli110008/20/2024 7:59 AM ESTOxygen Kmtwgahyfp76%09/29/2024 12:51 PM EDTInhaled Oxygen Concentration--Apieft66.5 kg (184 lb)10/08/2024 1:42 PM EDT Xytkls850.2 cm (5' 7.01 )10/08/2024 1:42 PM EDTBody Mass Index28.8110/08/2024 1:42 PM EDT Plan of Treatment Health MaintenanceDue DateLast DoneCommentsDTaP,Tdap and Td Vaccines (1 - Tdap) 1966Fall Risk Vdzmuybyg98/21/2012COVID-19 Vaccine ( season) , 04/11/2021, 08/30/2020, Additional history existsInfluenza Dcdzodu44/09/2023, 04/16/2022, 04/26/2020, Additional history exists Depression Atshvqays41/09/2024Tobacco Omidmmmxx31 Zoster (Shingles) LlaxtdiPwolesbnb02/04/2021, 11/30/2020olonoscopyDiscontinued 08/01/2022 Goals GoalPatient Goal TypeAssociated ProblemsRecent ProgressPatient-Stated?Author Safe Discharge Mya Page, RN Note: Evaluation of progress towards goal: safe transition home self care with spouse and family support. Medical Devices Not on file Procedures Procedure NamePriorityDate/TimeAssociated DiagnosisCommentsCOLONOSCOPYRoutine 08/01/2022 Abnormal computed tomography of large intestine Left upper quadrant abdominal pain from Last 3 Months or Most Recently Relevant to Health Maintenance Results * Colonoscopy (08/01/2022) Narrative Authorizing ProviderResult TypeResult StatusMichaeradha CONDON PROCEDURE ORDERABLESFinal ResultPerforming OrganizationAddressCity/State/ZIP CodePhone Number MANUALLY TRANSCRIBED RESULTS from Last 3 Months or Most Recently Relevant to Health Maintenance Insurance * Guarantor: Damaso Kan TypeRelation to PatientDate of PhoneBilling AddressPersonal/GeohvnCceu1945 [address] [address] Advance Directives * Full Code (Latest Code Status on File) Date ActivatedDate InactivatedComments08/17/2024 5:30 PM2 2:19 PM Care Teams Team MemberRelationshipSpecialtyStart DateEnd Date Hafsa Browning MD [address] [place] [id number] PCP - GeneralFamily Khkmljdn29/18/21
--- OUTSIDE RECORDS SUMMARY | 2025-05-13 13:01 | XMS_ITS | Clinical Summary ---
Author Organization [facility] Address [address], [address] [place] [address] Care Team Providers Care Exercise Physiologist Certified Name Role Phone Hafsa Browning MD Primary Care Provider [phone] Encounters DateTypeDepartmentCare QxxaZhxudhzbyae90/20/2025 1:22 PM EDT - 05/05/2025 11:59 PM EDTHospital Encounter [facility] [address] [place] [address] History of total knee replacement, right; Aftercare following right shoulder joint replacement surgery Discharge Disposition: Home or Self Care05/03/2025 11:25 AM EDT - 05/05/2025 11:59 PM EDTHospital Encounter [facility] [address] [place] [address] Discharge Disposition: Home or Self Carefrom Last 3 Months Social History Tobacco UseTypesPacks/DayYears UsedDateSmoking Tobacco: Never Assessed CommentsUnknownSex and Gender InformationValueDate RecordedSex Assigned at Not on fileLegal TzjBmkzgg78/07/2025 2:06 PM EDTGender IdentityNot on fileSexual OrientationNot on file Plan of Treatment Health MaintenanceDue DateLast DoneCommentsDepression Lwbery9805/04/1959Hepatitis C xxynqb9105/04/1965DTaP/Tdap/Td vaccine (1 - Tdap)1966DEXA (modify frequency per FRAX score)2002Respiratory Syncytial Virus (RSV) or age 60 yrs+ (1 - 1-dose 75+ series)2022nnual Wellness Visit (Medicare) 01/18/2025Flu vaccine (#1)51, 04/16/2022, 05/16/2020, Additional history existsCOVID-19 Vaccine (2024- season)2025 04/10/2022, 04/11/2021, 08/30/2020, Additional history existsPneumococcal 50+ years NkqbbgdSjpvozidv46/04/2019, 11/07/2017, 10/13/2017Shingles vaccine Gibitveov59/04/2021, 11/30/2020Hepatitis A vaccineAged OutNo longer eligible based on patient's age to complete this topicHepatitis B vaccineAged OutNo longer eligible based on patient's age to complete this topicHib vaccineAged Out No longer eligible based on patient's age to complete this topicMeningococcal (ACWY) vaccineAged OutNo longer eligible based on patient's age to complete this topicMeningococcal B vaccineAged OutNo longer eligible based on patient's age to complete this topicPolio vaccineAged OutNo longer eligible based on patient's age to complete this topic Procedures Procedure NamePriorityDate/TimeAssociated DiagnosisCommentsXR KNEE RIGHT (3 VIEWS)Fglfsnr5405/03/2025 1:44 PM EDT History of total knee replacement, right Aftercare following right shoulder joint replacement surgery from Last 3 Months Results * XR KNEE RIGHT (3 VIEWS) [...] total knee replacement, right. COMPARISON: Right knee [facility] 03/04/2025. Procedure Note Isaac King Jr., MD - 05/03/2025 EXAM: XR KNEE RIGHT (3 VIEWS) HISTORY: History of total knee replacement, right. COMPARISON: Right knee [facility] 03/04/2025. IMPRESSION: FINDINGS/IMPRESSION: Right total knee prosthesis with a patellar button in anatomic alignment without radiographic complication. Kellgren-Jose Armando grade 2 osteoarthritic change left knee. Authorizing ProviderResult TypeResult StatusDytae Perdomo [facility] ORDERABLESFinal Result from Last 3 Months Insurance [place] [id number] Care Teams Team MemberRelationshipSpecialtyStart DateEnd Date Hafsa Browning MD [address] [place] [id number] PCP - GeneralFamily Medicine01/18/25
--- OUTSIDE RECORDS SUMMARY | 2025-05-13 13:01 | XMS_ITS | Clinical Summary ---
Author Organization [facility] Address [address] [place] [address] Care Team Providers Care Fudge Candy Maker Name Role Phone Unavailable Primary Care Provider Unavailabl e Social History Tobacco UseTypesPacks/DayYears UsedDateSmoking Tobacco: Never Assessed CommentsUnknownSex and Gender InformationValueDate RecordedSex Assigned at Not on fileLegal VfyYmudph30/01/2023 8:33 PM EDTGender IdentityNot on fileSexual OrientationNot on file Last Filed Vital Signs Vital SignReadingTime TakenCommentsBlood Ulfwnhfp265/9111/13/2017 12:00 PM EDT Pulse--Temperature--Respiratory Rate--Oxygen Saturation--Inhaled Oxygen Concentration--Psgcsg48.5 kg (215 lb)05/30/2021 12:00 PM OFKKihcra045.1 cm (5' 5 )05/30/2021 12:00 PM ESTBody Mass Index35.7805/30/2021 12:00 PM EST Plan of Treatment Not on file Insurance
== END 2025-05-13 12:56 | disposition home or self-care (01) ==
LOC: US 12:57
PROVIDERS: PCP Family Medicine; Visit Provider Family Medicine
DX: R60.0 Localized edema (principal)
CPT/HCPCS: 93971